=== PATIENT | female | born 1955 | race Caucasian/White ===

== ENCOUNTER → 2016-09-29 | Outpatient (CLI) | payer BC ==
[~2016-09-29] MED LIST: CALC600T37 PO; CALCIUM 600 MG PO; CHOL1000 PO; HYDR-5688 PO; HYDR0.5T PO; IRBE-37 PO; MELO7.5T6 PO; PANT40TA PO; TRIA37.5 PO; [UNRECOGNIZED DRUG - CODE] PO; [UNRECOGNIZED DRUG - OTHER] PO
--- NOTE | 2016-09-29 15:22 | DIAGNOSTIC IMAGING REPORT ---
RIGHT HAND MIN 3 VIEWS ROUTINE CLINICAL HISTORY: EROSIVE ARTHRITIS Right pain COMPARISON: None. DISCUSSION: Findings consistent with relatively severe erosive osteoarthritis involving the distal interphalangeal joints. Mild degenerative changes seen in the proximal interphalangeal joint region. There is no significant involvement of the intercarpal or metacarpophalangeal joints. Bony mineralization is diminished throughout. There is no evidence for soft tissue swelling. IMPRESSION: Severe degenerative and/or erosive osteoarthritic change of the distal interphalangeal joints throughout the second through fifth fingers. Mild degenerative change of the proximal interphalangeal joints throughout. Mild osteopenia. Electronically signed by: Aldo Calderon M.D. 09/29/2016 3:20 PM Dictated Date/Time: 09/29/2016 3:19 PM
== END | disposition home or self-care (01) ==
LOC: C.RADBC 14:37
PROVIDERS: ATTEND Orthopaedic Surgery
DX: M19.90 Unspecified osteoarthritis, unspecified site (principal)

== ENCOUNTER → 2016-09-30 | Outpatient (CLI) | payer BC ==
[2016-09-30 15:41] LABS: BASO % 0.6 %; BASO ABS # 0.03 K/uL (0-0.2); COMPLETE YES; EOS % 6.6 %; HEMATOCRIT 38.9 % (37-47); IG% 0.2 %; LYMPH % 30.2 %; LYMPH ABS # 1.56 K/uL (1.2-3.4); MEAN CELL VOLUME 86.1 fL (80-100); MEAN CORPUSCULAR HEMOGLOBIN 27.4 pg (25-34); MEAN CORPUSCULAR HGB CONC 31.9 g/dl (32-36); MEAN PLATELET VOLUME 11.8 fL (7.4-10.4); MONO % 6.6 %; NEUT % 55.8 %; PLATELET COUNT 216 K/uL (130-400); RED BLOOD COUNT 4.52 M/uL (4.2-5.4); WHITE BLOOD COUNT 5.16 K/uL (4.8-10.8)
[2016-09-30 16:03] LABS: BLOOD UREA NITROGEN 20 mg/dl (7-18); BUN/CREATININE RATIO 12.2 (10-20); CARBON DIOXIDE 33 mmol/L (21-32); CHLORIDE 106 mmol/L (98-107); GLUCOSE 81 mg/dl (70-99); POTASSIUM 3.9 mmol/L (3.5-5.1); SODIUM 143 mmol/L (136-145)
== END | disposition home or self-care (01) ==
LOC: C.CPL 14:33
PROVIDERS: ATTEND Orthopaedic Surgery
DX: Z01.810 Encounter for preprocedural cardiovascular examination (principal); Z01.812 Encounter for preprocedural laboratory examination; M67.449 Ganglion, unspecified hand

== ENCOUNTER → 2016-10-02 | Outpatient (CLI) | payer BC ==
--- NOTE | 2016-10-02 13:45 | DIAGNOSTIC IMAGING REPORT ---
LEFT FOOT MIN 3 VIEWS ROUTINE CLINICAL HISTORY: EROSIVE OSTEOARTHRITIS OF BOTH Hands, medial Epicondylitis, r COMPARISON: None. DISCUSSION: Considerable degenerative change of the distal interphalangeal joints of the second through fourth toes. This suggestive of erosive osteoarthritic change. Bunion deformity distal aspect first metatarsal with mild hallux valgus configuration. Very small heel spur. There is no evidence for soft tissue swelling. IMPRESSION: Findings of erosive osteoarthritic change involving the second through fourth distal interphalangeal joints. Moderate degenerative change first metatarsophalangeal joint. Electronically signed by: Aldo Calderon M.D. 10/02/2016 1:43 PM Dictated Date/Time: 10/02/2016 1:42 PM
--- NOTE | 2016-10-02 13:47 | DIAGNOSTIC IMAGING REPORT ---
LEFT HAND 3 VIEWS HISTORY: EROSIVE OSTEOARTHRITIS OF BOTH Hands, medial Epicondylitis, r COMPARISON: None. FINDINGS: Mild soft tissue swelling at the DIP joints. Erosive osteoarthritis at the DIP joints. Moderate osteoarthritis at the PIP joints. No fractures. No dislocation. Mild periarticular osteopenia. The DIP joints of the fourth and fifth fingers appear to be fused. No radiopaque foreign bodies. IMPRESSION: 1. Erosive osteoarthritis at the DIP joints of the left hand. The fourth and fifth finger DIP joints appear to be fused. 2. Mild periarticular osteopenia. 3. Moderate osteoarthritis at the PIP joints. Electronically signed by: Ho Keller M.D. 10/02/2016 1:46 PM Dictated Date/Time: 10/02/2016 1:43 PM
== END | disposition home or self-care (01) ==
LOC: C.RAD 13:17
PROVIDERS: ATTEND Internal Medicine Rheumatology
DX: M15.4 Erosive (osteo)arthritis (principal); M19.041 Primary osteoarthritis, right hand; M19.042 Primary osteoarthritis, left hand; M77.01 Medial epicondylitis, right elbow; M25.50 Pain in unspecified joint; Z79.1 Long term (current) use of non-steroidal anti-inflammatories (NSAID); Z79.899 Other long term (current) drug therapy

== ENCOUNTER → 2016-10-08 | Day surgery (SDC) | payer BC ==
[2016-10-07 15:09] VITALS: Ht 165.1 cm; Wt 90.9 kg
[~2016-10-08] VITALS: Ht 165.1 cm; Wt 90.9 kg
[~2016-10-08] MED LIST changes: +ATROPINE SULFATE 0.1 MG/ML 5ML SYR IV PRN; -CALCIUM 600 MG PO; +CEFAZOLIN 1000MG/55 ML D5W IV SCH; +DEXAMETHASONE SOD INJ 4 MG/ML VIAL ONE; +EpHEDrine SULFATE INJ 50 MG/ML AMP IV PRN; +FENTANYL CITRATE INJ 50 MCG/1 ML 2 ML VIAL IV PRN; +FENTANYL CITRATE INJ 50 MCG/1 ML 2 ML VIAL ONE; +HYDROCODONE/ACETAMOPHEN 5/325MG TAB PO PRN; -IRBE-37 PO; +LACTATED RINGER'S 1000ML 1,000 ML IV SCH; +LIDOCAINE HCL 2% 2 ML VIAL (20MG/ML) ONE; +LIDOCAINE HCL 2% LOCAL 20 ML VIAL ONE; +MIDAZOLAM HCL 1 MG/ML 2ML VIAL ONE; +ONDANSETRON INJ 2 MG/ML 2 ML VIAL IV PRN; +ONDANSETRON INJ 2 MG/ML 2 ML VIAL ONE; +PATIENT'S HEIGHT AND/OR WEIGHT NEEDED SCH; +PROPOFOL IV EMULSION 10 MG/ML 20 ML VIAL IV ONE; +SODIUM CHLORIDE 0.9% 1000ML 1,000 ML IV SCH; -[UNRECOGNIZED DRUG - CODE] PO; -[UNRECOGNIZED DRUG - OTHER] PO
--- NOTE | 2016-10-08 07:53 | History & Physical Bridge - SC ---
H&P Re-Evaluation Bridge Note: I have examined the patient, reviewed the History & Physical and in the interval since the performance of the History & Physical I have noted the following changes of clinical significance: No changes noted
[2016-10-08 08:39] VITALS: TEMP 36.5
--- NOTE | 2016-10-08 08:39 | Discharge Instructions-SurgCtr ---
Discharge Instructions Date of Service Oct 08, 2016. Visit Reason for Visit: Right Ring Finger Cyst Discharge Discharge Diagnosis / Problem: SAME ABOVE Discharge Goals Goal(s): Decrease discomfort, Improve function Activity Recommendations Activity Limitations: as noted below Shower/Bathe: may shower/bathe in 3 days Driving or Machine Use: resume 1 day after discharge Anesthesia . Post Anesthesia Instructions: If you have had General Anesthesia or IV Sedation: * Do not drive today. * Resume driving when surgeon permits. * Do not make important decisions or sign legal documents today. * Call surgeon for: 1. Temperature elevations greater than 101 degrees F. 2. Uncontrollable pain. 3. Excessive bleeding. 4. Persistent nausea and vomiting. 5. Medication intolerance (nausea, vomiting or rash). * For nausea and vomiting use only clear liquids such as: tea, soda, bouillon until nausea subsides, then gradually increase diet as tolerated. * If you have any concerns or questions, call your surgeon's office. If physician is unavailable and it is an emergency, call 911 or go to the nearest emergency room. . Instructions / Follow-Up Instructions / Follow-Up MEDICATIONS: * Resume previous medications unless instructed otherwise by your surgeon. * Always take pain medication on a full stomach or with food to avoid upset stomach. * Do not drink alcohol or drive while taking narcotics. * Ibuprofen or Tylenol may be taken if narcotic not needed. SPECIAL CARE INSTRUCTIONS: __ None _X_ Keep extremity elevated and iced x 48 hours; apply ice 20-30 minutes 8-10 times/day. May remove at night. __ Sling __24 hrs/day __ Remove at night __ Shoulder Immobilizer __ 24 hrs/day __ Remove at night _X_ Dressing __ Maintain until seen in office, may shower with plastic over site _X_ Remove dressings in 3 DAYS. MAY SHOWER SOONER IF COVERED WITH PLASTIC BAG _X_ Cover incisions with band-aids after showering __ Do not remove steri-strips Call physician if chills or temperature rises above 102 degrees or pain unrelieved by prescribed pain medications at . . Diet Recommendations Home Diet: no limitations Fluid Restriction: None Procedures Procedures Performed: Right Ring Finger Ganglion Cyst Excision Pending Studies Studies pending at discharge: yes List of pending studies: GANGLION CYST OF RIGHT RING FINGER Work Instructions Return To Work: 3 days (OR WHEN PAIN IS TOELRATED ) Medical Emergencies . Who to Call and When: Medical Emergencies: If at any time you feel your situation is an emergency, please call 911 immediately. . Non-Emergent Contact Non-Emergency issues call your: Primary Care Provider Call Non-Emergent contact if: you have a fever, temperature is above 101.5 . . "Provider Documentation" section prepared by Derrick Grayson. .
[2016-10-08 09:11] VITALS: BP 132/67; PULSE 63; O2SAT 98
--- NOTE | 2016-10-08 09:36 | Anesthesia Progress Nt - [facility] ---
Anesthesia Post Op Note Date & Time Oct 08, 2016 at 09:35 Vital Signs Pain Intensity: 0 Vital Signs Past 12 Hours Date Time Temp Pulse Resp B/P (MAP) Pulse Ox O2 Delivery O2 Flow Rate FiO2 10/08/16 09:11 63 132/67 (88) 98 Room Air 10/08/16 08:39 36.5 70 12 137/60 (85) 96 Room Air 10/08/16 07:38 36.6 71 16 156/87 (110) 99 Room Air Notes Mental Status: alert / awake / arousable, participated in evaluation Pt Amnestic to Procedure: Yes Nausea / Vomiting: adequately controlled Pain: adequately controlled Airway Patency, RR, SpO2: stable & adequate BP & HR: stable & adequate Hydration State: stable & adequate Anesthetic Complications: no major complications apparent
--- NOTE | 2016-10-08 09:47 | OPERATIVE REPORT ---
DATE OF OPERATION: 10/08/2016 PREOPERATIVE DIAGNOSIS: Ganglion cyst of the right ring finger. POSTOPERATIVE DIAGNOSIS: Same. PROCEDURE: Open excision ganglion cyst, right ring finger. SURGEON: Dr. Tanmay Arceo. STONEMASON HELPER: Grzegorz Grayson PA-C, whose assistance was necessary for positioning the hand and helping with instrumentation. ANESTHESIA: Local with sedation. COMPLICATIONS: None. CONDITION: Stable to PACU. INDICATIONS: Earlene is a pleasant 60-year-old female who does have arthritis in her hand. She developed a cyst on the radial aspect of the PIP joint of her right ring finger. It has been quite bothersome. She elected to undergo open excision. OPERATION AND FINDINGS: On 10/08/2016 she arrived at [facility] for the above procedure. She was seen in the preoperative holding area and the operative extremity was identified and signed. She was given a preoperative antibiotic, taken back to the operating room, laid on the table in supine position and given basic sedation. The right hand was prepped and draped in sterile fashion. Time-out was done and the patient and operative extremity was properly identified. A digital block with 5 mL of lidocaine was done. Once proper analgesia was obtained, a longitudinal incision was made directly over the cyst on the radial aspect of the PIP joint. Dissection was taken down to the cyst with care not to disrupt the digital nerve. The cyst was then excised. There was a gelatinous fluid that was evacuated. The tissue was sent to pathology. The wound was then irrigated and closed with 4-0 nylon sutures. She was then placed in a soft dressing and taken to the postanesthesia care unit in stable condition. She tolerated the procedure well. I attest to the content of the Intraoperative Record and any orders documented therein. Any exception s are noted below.
--- NOTE | 2016-10-08 11:44 | [facility] Post Operative Brief Note ---
Immediate Operative Summary Operative Date Oct 08, 2016. Pre-Operative Diagnosis Right ring finger ganglion cyst Post-Operative Diagnosis same as preop Procedure(s) Performed Right Ring Finger Ganglion Cyst Excision Surgeon Dr. Arceo Special Projects Coordinator Surgeon(s) Samaria Grayson PA-C Estimated Blood Loss none Findings as above Specimens A: Right Ring finger ganglion cyst Complication(s) None Disposition Recovery Room / PACU
== END | disposition home or self-care (01) ==
LOC: X.SURG 07:27
PROVIDERS: ATTEND Orthopaedic Surgery
DX: M67.441 Ganglion, right hand (principal); M19.90 Unspecified osteoarthritis, unspecified site

== ENCOUNTER → 2016-10-23 | Outpatient (CLI) | payer BC ==
[~2016-10-23] MED LIST changes: -ATROPINE SULFATE 0.1 MG/ML 5ML SYR IV PRN; -CEFAZOLIN 1000MG/55 ML D5W IV SCH; -DEXAMETHASONE SOD INJ 4 MG/ML VIAL ONE; -EpHEDrine SULFATE INJ 50 MG/ML AMP IV PRN; -FENTANYL CITRATE INJ 50 MCG/1 ML 2 ML VIAL IV PRN; -FENTANYL CITRATE INJ 50 MCG/1 ML 2 ML VIAL ONE; -HYDROCODONE/ACETAMOPHEN 5/325MG TAB PO PRN; -LACTATED RINGER'S 1000ML 1,000 ML IV SCH; -LIDOCAINE HCL 2% 2 ML VIAL (20MG/ML) ONE; -LIDOCAINE HCL 2% LOCAL 20 ML VIAL ONE; -MIDAZOLAM HCL 1 MG/ML 2ML VIAL ONE; -ONDANSETRON INJ 2 MG/ML 2 ML VIAL IV PRN; -ONDANSETRON INJ 2 MG/ML 2 ML VIAL ONE; -PATIENT'S HEIGHT AND/OR WEIGHT NEEDED SCH; -PROPOFOL IV EMULSION 10 MG/ML 20 ML VIAL IV ONE; -SODIUM CHLORIDE 0.9% 1000ML 1,000 ML IV SCH
--- NOTE | 2016-10-23 15:42 | MAMMOGRAPHY REPORT ---
BILATERAL DIGITAL SCREENING MAMMOGRAM TOMOSYNTHESIS WITH CAD: 10/23/2016 CLINICAL HISTORY: Routine screening. TECHNIQUE: Breast tomosynthesis in addition to standard 2D mammography was performed. Current study was also evaluated with a Computer Aided Detection (CAD) system. COMPARISON: Comparison is made to exams dated: 09/30/2015 mammogram, 09/28/2014 mammogram, 09/01/2013 m ammogram, 06/24/2012 mammogram, 06/15/2011 mammogram, and 06/02/2010 mammogram - [facility]ter. BREAST COMPOSITION: There are scattered areas of fibroglandular density in both breasts. FINDINGS: No suspicious masses, calcifications, or areas of architectural distortion are noted in ei ther breast. There has been no significant interval change compared to prior exams. Bilateral benign -appearing calcifications are not significantly changed. IMPRESSION: ACR BI-RADS CATEGORY 2: BENIGN There is no mammographic evidence of malignancy. A 1 year screening mammogram is recommended. The pa tient will receive written notification of the results. Approximately 10% of breast cancers are not detected with mammography. A negative mammographic report should not delay biopsy if a clinically suggestive mass is present. Carmen Freedman M.D. /:10/23/2016 15:19:05 Illuminating Engineer: Shreya ANGULO(R)(M), [facility] letter sent: Normal 1/2 BI-RADS Code: ACR BI-RADS Category 2: Benign
== END | disposition home or self-care (01) ==
LOC: C.MAMM 09:27
PROVIDERS: ATTEND Internal Medicine
DX: Z12.31 Encounter for screening mammogram for malignant neoplasm of breast (principal)

== ENCOUNTER → 2017-01-25 | Outpatient (CLI) | payer BC ==
--- NOTE | 2017-01-25 13:55 | DIAGNOSTIC IMAGING REPORT ---
RIGHT ELBOW MIN 3 VIEWS ROUTINE CLINICAL HISTORY: Right elbow pain. Erosive osteoarthritis of the hands. COMPARISON: None. DISCUSSION: No acute fractures are visualized. The fat pads are not displaced. There is coronoid process spurring. There is joint space narrowing involving the radiocapitellar joint. No erosive changes are evident. IMPRESSION: Mild to moderate osteoarthritic change. No acute fractures. Electronically signed by: Santos Solitario M.D. 01/25/2017 1:53 PM Dictated Date/Time: 01/25/2017 1:53 PM
== END | disposition home or self-care (01) ==
LOC: C.RAD 13:24
PROVIDERS: ATTEND Internal Medicine Rheumatology
DX: M77.01 Medial epicondylitis, right elbow (principal); M15.4 Erosive (osteo)arthritis; M19.041 Primary osteoarthritis, right hand; M19.042 Primary osteoarthritis, left hand; Z79.899 Other long term (current) drug therapy; M25.50 Pain in unspecified joint; Z79.1 Long term (current) use of non-steroidal anti-inflammatories (NSAID); M15.0 Primary generalized (osteo)arthritis; N28.9 Disorder of kidney and ureter, unspecified

== ENCOUNTER → 2017-04-13 | Outpatient (CLI) | payer BC ==
[~2017-04-13] MED LIST changes: -HYDR-5688 PO
--- NOTE | 2017-04-13 13:59 | DIAGNOSTIC IMAGING REPORT ---
L-SPINE MIN 4 VIEWS ROUTINE HISTORY: 61 years-old Female M54.16 Lumbar radiculopathy right-sided reticular lumbar spine pain COMPARISON: CT abdomen and pelvis 07/15/2013 TECHNIQUE: 5 views of the lumbar spine FINDINGS: There are 5 lumbar type vertebral segments present. There is no acute fracture identified. No pars defect identified. There is 9 mm anterolisthesis L4 on L5 with severe intervertebral disc space narrowing at this level. Moderate facet arthrosis noted at L4-L5 and L5-S1. Disc space narrowing and anterolisthesis at L4-L5 is new from prior exam. Mild multilevel endplate spurring without additional significant intervertebral disc space narrowing. Soft tissues are unremarkable. Surgical clips of the right upper abdomen compatible with prior cholecystectomy. IMPRESSION: 1. No acute fracture identified. 2. Severe intervertebral disc space narrowing at L4-L5 with 9 mm anterolisthesis L4 on L5 is new from comparison study 07/15/2013. These findings may be secondary to underlying moderate facet arthrosis without pars defects identified. The above report was generated using voice recognition software. It may contain grammatical, syntax or spelling errors. Electronically signed by: Ravi Strong M.D. 04/13/2017 1:58 PM Dictated Date/Time: 04/13/2017 1:54 PM
== END | disposition home or self-care (01) ==
LOC: C.RAD 13:08
PROVIDERS: ATTEND Internal Medicine
DX: M51.36 Other intervertebral disc degeneration, lumbar region (principal); M47.26 Other spondylosis with radiculopathy, lumbar region

== ENCOUNTER → 2017-08-25 | Outpatient (CLI) | payer OTHER ==
[2017-08-25 10:36] LABS: BLOOD UREA NITROGEN 29 mg/dl (7-18); CREATININE 1.36 mg/dl (0.60-1.20)
== END | disposition home or self-care (01) ==
LOC: C.LAB 09:38
PROVIDERS: ATTEND Internal Medicine
DX: Z01.812 Encounter for preprocedural laboratory examination (principal); N18.3 Chronic kidney disease, stage 3 (moderate)

== ENCOUNTER → 2017-08-31 | Outpatient (CLI) | payer OTHER ==
[~2017-08-31] MED LIST changes: +GADAVIST IV PRN
--- NOTE | 2017-08-31 14:04 | DIAGNOSTIC IMAGING REPORT ---
LUMBAR SPINE COMBINATION HISTORY: Pain. Neuropathy. M54.16 Lumbar [id number] TECHNIQUE: Multiplanar multisequence MRI of the lumbar spine was performed both before and after the intravenous administration of contrast. COMPARISON: None. FINDINGS: For the purpose of the report the L5-S1 disc space will be located on axial image 2425. Grade 1 anterolisthesis of L4 on L5. This is associated with a posterior spondylolysis. Maximum anterolisthesis of L4 is 4 mm. Considerable degenerative disc changes identified at L4-L5. L1-L2: No significant central canal or neural foraminal narrowing. L2-L3: No significant central canal or neural foraminal narrowing. L3-L4: No significant central canal or neural foraminal narrowing. L4-L5: Mild/moderate multifactorial narrowing of spinal canal. This is secondary to hypertrophic changes of posterior elements by with the patient agreed 1 anterolisthesis of L4 on L5. There is a posterior spondylolysis. There is moderate impact upon the thecal sac. Neuroforamina are patent bilaterally. L5-S1: No significant central canal or neural foraminal narrowing. IMPRESSION: 1. Moderate multifactorial narrowing of spinal canal at L4-L5 secondary to hypertrophic changes of posterior elements and a grade 1 anterolisthesis of L4 on L5. 2. 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 3. Remainder the study is negative The above report was generated using voice recognition software. It may contain grammatical, syntax or spelling errors. Electronically signed by: Aldo Calderon M.D. 08/31/2017 2:02 PM Dictated Date/Time: 08/31/2017 1:55 PM
== END | disposition home or self-care (01) ==
LOC: C.MRI 11:37
PROVIDERS: ATTEND Internal Medicine
DX: M54.16 Radiculopathy, lumbar region (principal)

== ENCOUNTER → 2017-12-31 | Outpatient (CLI) | payer OTHER ==
[~2017-12-31] MED LIST changes: +CYM/30 PO; -GADAVIST IV PRN; +TELM40TA11 PO
--- NOTE | 2018-01-03 13:56 | MAMMOGRAPHY REPORT ---
BILATERAL DIGITAL SCREENING MAMMOGRAM TOMOSYNTHESIS WITH CAD: 12/31/2017 CLINICAL HISTORY: Routine screening. Patient has no complaints. TECHNIQUE: Breast tomosynthesis in addition to standard 2D mammography was performed. Current study w as also evaluated with a Computer Aided Detection (CAD) system. COMPARISON: Comparison is made to exams dated: 10/23/2016 mammogram, 09/30/2015 mammogram, 09/28/2014 m ammogram, 06/24/2012 mammogram, 06/15/2011 mammogram, and 06/13/2010 mammogram - [facility]. BREAST COMPOSITION: There are scattered areas of fibroglandular density in both breasts. FINDINGS: No suspicious masses, calcifications, or areas of architectural distortion are noted in either breast . There has been no significant interval change compared to prior exams. Scattered bilateral benign-a ppearing calcifications are not significantly changed. IMPRESSION: ACR BI-RADS CATEGORY 2: BENIGN There is no mammographic evidence of malignancy. A 1 year screening mammogram is recommended.( 019) The patient will receive written notification of the results. Some breast cancers are not detected with mammography. A negative mammographic report should not tenisha y biopsy if a clinically suggestive mass is present. Carmen Freedman M.D. ah/:12/31/2017 15:47:21 Founder And President: RT Gloria(Jim)(M), [facility] letter sent: Normal 1/2 BI-RADS Code: ACR BI-RADS Category 2: Benign
== END | disposition home or self-care (01) ==
LOC: C.MAMM 12:18
PROVIDERS: ATTEND Obstetrics & Gynecology
DX: Z12.31 Encounter for screening mammogram for malignant neoplasm of breast (principal)

== ENCOUNTER 2018-12-24 08:47 | Inpatient (IN) ==
--- NOTE | 2018-12-24 09:17 | Emergency Department Note ---
ED Provider Note CHIEF COMPLAINT: Syncope HISTORY OF PRESENTING ILLNESS: This is a 63-year-old female who presents to the emergency department via EMS for concern of 2 episodes of syncope. Patient states her first episode happened around 8 AM, she was driving her to doctor's appointment and had an episode of syncope when she got out of the car falling backwards in the parking lot. She does not think that she had her head. Staff at the doctor's office had her sit in a wheelchair and she was in the chair for approximately 15 minutes when she began to feel fuzzy and passed out again for a few seconds. There was no seizure-like activity, she was not confused afterward. No urinary incontinence or injury associated with the syncope. Patient denies any symptoms of chest pain, shortness of breath, or palpitations. She denies any abdominal pain, back pain, nausea or vomiting. She denies any headaches, vision changes, neck pain or stiffness, persistent dizziness. She denies any numbness/tingling or weakness of the extremities. She denies any difficulty walking or balance problems. She currently denies any symptoms and states that she feels fine. She does note a history of a right bundle branch block and stage III chronic kidney disease, she is not on dialysis. She does note a history of similar episodes a few years ago, states t hat she was seen by cardiology and had a tilt table test and a home monitor and states the cause of her symptoms were never determined. She denies any ongoing issues with syncope, or recurrent episodes since that time until today. REVIEW OF SYSTEMS: A complete 10 point review of systems was reviewed with the patient with pertinent positives and negatives as per history of present illness. All else were negative. PAST MEDICAL HISTORY: Hypertension, GERD, stage III chronic kidney disease, erosive osteoarthritis, history of cholecystectomy history of total hysterectomy SOCIAL HISTORY: Lives at home with her ALLERGIES: Reviewed in chart PHYSICAL EXAM: CONSTITUTIONAL: Pleasant and cooperative. Nontoxic-appearing and in no acute distress. Well-hydrated, well appearing and well nourished. HEENT: Normocephalic, atraumatic. PERRL, EOMI. TMs normal bilaterally, no hemotympanum. Pharynx normal. Moist mucous membranes. NECK: Supple, full active range of motion without discomfort. No midline tenderness of the cervical spine. No carotid bruits heard bilaterally. RESPIRATORY: Clear to auscultation bilaterally with no wheezing, crackles, rhonchi or stridor. Equal expansion bilaterally. CARDIOVASCULAR: Regular rate and rhythm with no murmurs, rubs or gallops. Normal peripheral perfusion, 2+ distal pulses in all 4 extremities. No pitting edema. GASTROINTESTINAL: Soft, nontender, nondistended. No palpable masses or HSM. Bowel sounds present in all quadrants. No CVA tenderness bilaterally. MUSCULOSKELETAL: Full range of motion of all joints without discomfort. No midline tenderness to palpation of the thoracic or lumbar spine. INTEGUMENTARY: No rash or other significant dermatologic conditions noted. NEUROLOGIC: Alert and oriented X 4 with normal affect. Cranial nerves II-XII grossly intact, no facial droop. No pronator drift. [id number] testing normal. Negative Romberg. 5/5 strength in all 4 extremities. Sensation intact to light touch in all 4 extremities. No focal neurologic deficits noted. Normal speech. ED COURSE AND MEDICAL DECISION MAKING: CC: Patient presenting with complaint of syncope DIFFERENTIAL DIAGNOSIS: Includes, but not limited to vasovagal syncope, orthostatic syncope, cardiac dysrhythmia, CVA, intracranial hemorrhage, seizure, electrolyte abnormality, acute anemia, among others. INTERPRETATION OF LABS: No leukocytosis, no anemia, normal platelets, no significant elect light abnormalities, slightly elevated BUN and creatinine (appears consistent with baseline), normal liver enzymes. TSH within normal limits. UA negative for infection. IMAGING: XR chest 1V portable CLINICAL HISTORY: syncope COMPARISON STUDY: 08/12/2018 FINDINGS: The cardiac and mediastinal contours are normal. There is no evidence of focal pulmonary consolidation. There is no evidence of failure. No pleural effusions are visualized. IMPRESSION: No active disease in the chest. ----- CT head/brain wo con CLINICAL HISTORY: syncope COMPARISON STUDY: No previous studies for comparison. TECHNIQUE: Axial CT of the brain is performed from the vertex to the skull base. IV contrast was not administered for this examination. A dose lowering technique was utilized adhering to the principles of ALARA. CT DOSE: 537.48 mGy.cm FINDINGS: No intra or extra-axial mass lesions are visualized. There is no CT evidence of acute cortical infarction. There is no evidence of midline shift. There is no acute hemorrhage. No calvarial fractures are visualized. There is mild frontal lobe atrophy. There is a prominent ossification involving the anterior falx There is no evidence of pathologic ventricular dilatation. There is no evidence of acute sinusitis IMPRESSION: No acute intracranial findings EKG: Shows normal sinus rhythm with a rate of 96 bpm, right bundle branch block, no acute ST or T wave abnormalities, no ectopy, no significant change when compared to previous EKG from 09/30/2016 by my interpretation. MEDICATION RECONCILIATION: I attest that I have personally reviewed the patient's current medication list. INITIAL VITAL SIGNS REVIEW: I reviewed the patient's initial vital signs and interpret them as follows: T: Afebrile; BP: Hypertensive; HR: Within normal limits; RR: Within normal limits; Pulse Ox: Within normal limits on room air. Blood pressure screening: The patient was found to have an elevated blood pressure and was referred to the inpatient hospitalist team for further management. MDM SUMMARY: Patient was evaluated at bedside, history and physical exam performed. Patient is alert and oriented, no acute distress, resting calmly in stretcher. Patient is neurologically intact with no focal deficits. Heart and lung exam is unremarkable. The patient was placed on senior loss control specialist, no dysrhythmias or ectopy noted. Patient denies any complaints at this time. No injuries or signs of trauma noted from fall. Patient is generally well-appearing, she does not appear to be clinically dehydr ated, and denies any history to explain dehydration. EKG reviewed at bedside, noting a right bundle branch block which patient reports a history of, no acute ischemic changes. Orders were placed at bedside for labs, UA, IV fluid bolus for hydration, chest x-ray, CT head noncontrast to evaluate for syncope. Patient discussed with Dr. Knapp, who agrees with my assessment, plan, and disposition. Labs and imaging reviewed as above, labs are unremarkable, no anemia or electrolyte abnormalities, renal function appears to be at her baseline. There is no UTI. Chest x-ray is clear. CT imaging of the head is unremarkable as well. Orthostatic blood pressures are negative, though she did have a tachycardic response sitting to standing, possibly suggesting orthostasis. Patient reassessed multiple times throughout ED stay, she has remained hemodynamically stable. She states that she still has moments where she feels slightly "fuzzy", but has not had any further episodes of syncope in the [facility] department. The patient and her were updated on all results from her work-up today. I discussed the option of additional testing for potential discharge versus admission to the hospital for additional work-up, the patient preferred to be admitted as she is concerned about going home. Given the unexplained, multiple episodes of syncope today, I feel that admission is a reasonable option for this patient. I spoke on the phone with Dr. Tadeo, [facility], who shanell magallon to evaluate the patient for admission. Patient and her were updated on plan for admission, they verbalized understanding and were to this plan. The patient was stable at time of admission. The chart was completed utilizing QR Wild Speech voice recognition software. Grammatical errors, random word insertions, pronoun errors, and incomplete sentences are an occasional consequence of this system due to software limitations, ambient noise, and hardware issues. Any formal questions or concerns about the content, text, or information contained within the body of this dictation should be directly addressed to the nurse practitioner for clarification. Impression & Plan Syncope and collapse Past Med/Surg History Medical History Chronic kidney disease, stage 3 Erosive osteoarthritis Hypertension Osteomyelitis Right bundle branch block (RBBB) Spondylolysis Surgical History History of bilateral tubal ligation History of breast biopsy aspiration of cyst from left breast benign History of cholecystectomy History of colonoscopy History of dilatation and curettage History of esophagogastroduodenoscopy (EGD) History of hand surgery right finger left hand--I&D History of tooth extraction History of total abdominal hysterectomy and bilateral salpingo-oophorectomy Social History Preferred Language: Albanian Communication Ability: Effective Coater Operator Insulation Board Required: No Beliefs That Will Affect Care: None Current Living Situation: Spouse Feels Safe at Home: Yes Smoking Status: Never smoker Second Hand Exposure: Yes (parents smoked) ; Hx Alcohol Use: No Hx Substance Use: No Results & Data Vital Signs Vital Signs - 24 hr 12/24/18 08:59 12/24/18 09:12 12/24/18 09:28 Temperature 36.6 C Temperature Source Oral Sepsis Recent Fever Within 48 Hours No Sepsis New/Unexplained Change in Mental Status No Sepsis Action Taken by Nursing No Action Required Pulse Rate - Lying 84 Pulse Rate - Sitting 84 Pulse Rate - Standing 120 H Pulse Rate 90 Pulse Rate [Apical] Respiratory Rate 16 Blood Pressure - Lying 164/73 H Blood Pressure - Sitting 158/8 H Blood Pressure- Standing 163/88 H Blood Pressure 171/76 H Blood Pressure [Left Arm] Blood Pressure Mean 107 Blood Pressure Mean [Left Arm] Pulse Oximetry 100 97 Oxygen Delivery Method Room Air Room Air 12/24/18 10:59 12/24/18 12:00 Temperature Temperature Source Sepsis Recent Fever Within 48 Hours Sepsis New/Unexplained Change in Mental Status Sepsis Action Taken by Nursing Pulse Rate - Lying Pulse Rate - Sitting Pulse Rate - Standing Pulse Rate Pulse Rate [Apical] 76 72 Respiratory Rate 16 16 Blood Pressure - Lying Blood Pressure - Sitting Blood Pressure- Standing Blood Pressure Blood Pressure [Left Arm] 160/71 H 154/72 H Blood Pressure Mean Blood Pressure Mean [Left Arm] 100 99 Pulse Oximetry 98 97 Oxygen Delivery Method Room Air Room Air Laboratory Data Result diagrams: 12/24/18 09:25 12/24/18 09:25 Lab Results 12/24/18 12/24/18 12/24/18 Range/Units 09:25 09:25 09:25 WBC 5.44 (4.8-10.8) K/uL RBC 4.66 (4.2-5.4) M/uL Hgb 12.6 (12.0-16.0) g/dL Hct 38.8 (37-47) % MCV 83.3 (80-100) fL MCH 27.0 (25-34) pg MCHC 32.5 (32-36) g/dL RDW Std Deviation 41.5 (36.4-46.3) fL RDW Coeff of Rowdy 13.7 (11.5-14.5) % Plt Count 216 (130-400) K/uL MPV 11.9 H (7.4-10.4) fL Immature Gran % (Auto) 0.2 % Neut % (Auto) 68.2 % Lymph % (Auto) 17.8 % Miner % (Auto) 9.2 % Eos % (Auto) 4.4 % Baso % (Auto) 0.2 % Immature Gran # (Auto) 0.01 (0.00-0.02) K/uL Neut # (Auto) 3.71 (1.4-6.5) K/uL Lymph # (Auto) 0.97 L (1.2-3.4) K/uL Miner # (Auto) 0.50 (0.11-0.59) K/uL Eos # (Auto) 0.24 (0-0.5) K/uL Baso # (Auto) 0.01 (0-0.2) K/uL PT 10.6 (9.0-12.0) Seconds INR 1.0 (0.9-1.1) APTT 26.3 (21.0-31.0) Seconds PTT Ratio 1.0 Sodium 142 (136-145) mmol/L Potassium 3.6 (3.5-5.1) mmol/L Chloride 106 (98-107) mmol/L Carbon Dioxide 31 (21-32) mmol/L Anion Gap 5.0 (3-11) BUN 22 H (7-18) mg/dl Creatinine 1.36 H (0.6-1.2) mg/dl Est Cr Clr Drug Dosing 48.3 ml/min Est GFR ( Amer) 48.2 Est GFR (Non-Af Amer) 41.6 BUN/Creatinine Ratio 16.3 (10-20) Glucose 114 H (70-99) mg/dl Calcium 9.0 (8.5-10.1) mg/dl Magnesium 2.1 (1.8-2.4) mg/dl Total Bilirubin 0.5 (0.2-1) mg/dl AST 25 (15-37) U/L ALT 34 (12-78) U/L Alkaline Phosphatase 88 (45-117) U/L Total Protein 7.0 (6.4-8.2) gm/dl Albumin 3.9 (3.4-5.0) gm/dl Globulin 3.1 (2.5-4.0) gm/dl Albumin/Globulin Ratio 1.3 (0.9-2) TSH 2.090 (0.300-4.500) uIu/ml Urine Color Urine Appearance (Clear) Urine pH (4.5-7.5) Ur Specific [place] (1.000-1.030) Urine Protein (Negative) Urine Glucose (UA) (Negative) Urine Ketones (Negative) Urine Blood (Negative) Urine Nitrite (Negative) Urine Bilirubin (Negative) Urine Urobilinogen (Negative) Ur Leukocyte Esterase (Negative) Urine WBC (Auto) (0-5) /hpf Urine RBC (Auto) (0-4) /hpf U Hyaline Cast (Auto) (0-5) /lpf U Epithel Cells (Auto) (0-5) /lpf Urine Bacteria (Auto) (Negative) 12/24/18 Range/Units 11:10 WBC (4.8-10.8) K/uL RBC (4.2-5.4) M/uL Hgb (12.0-16.0) g/dL Hct (37-47) % MCV (80-100) fL MCH (25-34) pg MCHC (32-36) g/dL RDW Std Deviation (36.4-46.3) fL RDW Coeff of Rowdy (11.5-14.5) % Plt Count (130-400) K/uL MPV (7.4-10.4) fL Immature Gran % (Auto) % Neut % (Auto) % Lymph % (Auto) % Miner % (Auto) % Eos % (Auto) % Baso % (Auto) % Immature Gran # (Auto) (0.00-0.02) K/uL Neut # (Auto) (1.4-6.5) K/uL Lymph # (Auto) (1.2-3.4) K/uL Miner # (Auto) (0.11-0.59) K/uL Eos # (Auto) (0-0.5) K/uL Baso # (Auto) (0-0.2) K/uL PT (9.0-12.0) Seconds INR (0.9-1.1) APTT (21.0-31.0) Seconds PTT Ratio Sodium (136-145) mmol/L Potassium (3.5-5.1) mmol/L Chloride (98-107) mmol/L Carbon Dioxide (21-32) mmol/L Anion Gap (3-11) BUN (7-18) mg/dl Creatinine (0.6-1.2) mg/dl Est Cr Clr Drug Dosing ml/min Est GFR ( Amer) Est GFR (Non-Af Amer) BUN/Creatinine Ratio (10-20) Glucose (70-99) mg/dl Calcium (8.5-10.1) mg/dl Magnesium (1.8-2.4) mg/dl Total Bilirubin (0.2-1) mg/dl AST (15-37) U/L ALT (12-78) U/L Alkaline Phosphatase (45-117) U/L Total Protein (6.4-8.2) gm/dl Albumin (3.4-5.0) gm/dl Globulin (2.5-4.0) gm/dl Albumin/Globulin Ratio (0.9-2) TSH (0.300-4.500) uIu/ml Urine Color Yellow Urine Appearance Cloudy A (Clear) Urine pH 8.5 H (4.5-7.5) Ur Specific [place] 1.013 (1.000-1.030) Urine Protein Negative (Negative) Urine Glucose (UA) Negative (Negative) Urine Ketones Negative (Negative) Urine Blood Negative (Negative) Urine Nitrite Negative (Negative) Urine Bilirubin Negative (Negative) Urine Urobilinogen Negative (Negative) Ur Leukocyte Esterase Negative (Negative) Urine WBC (Auto) 1-5 (0-5) /hpf Urine RBC (Auto) 0-4 (0-4) /hpf U Hyaline Cast (Auto) 1-5 (0-5) /lpf U Epithel Cells (Auto) 5-10 H (0-5) /lpf Urine Bacteria (Auto) Negative (Negative) Administered Medications Hydroxychloroquine Sulfate (Plaquenil) 200 mg PO BID DODIE Stop: 01/23/19 20:59 Last Admin: 12/24/18 20:37 Dose: 200 mg Documented by: [id number] Meloxicam (Mobic) 7.5 mg PO BID DODIE Stop: 01/23/19 20:59 Last Admin: 12/24/18 20:36 Dose: 7.5 mg Documented by: [id number] Multivitamins/Minerals (Caltrate Plus) 1 tab PO BID DODIE Stop: 01/23/19 20:59 Last Admin: 12/24/18 20:36 Dose: 1 tab Documented by: [id number] Pantoprazole Sodium (Protonix) 40 mg PO HS DODIE Stop: 01/23/19 20:59 Last Admin: 12/24/18 20:36 Dose: 40 mg Documented by: [id number] Discontinued Medications Sodium Chloride (Nss) 500 mls @ 999 mls/hr IV .Q31M ONE Stop: 12/24/18 11:53 Last Infusion: 12/24/18 12:15 Dose: 0 mls/hr Documented by: [id number] Admin: 12/24/18 11:38 Dose: 999 mls/hr Documented by: [id number] Ibuprofen (Advil) 400 mg PO ONE ONE Stop: 12/24/18 14:01 Last Admin: 12/24/18 14:40 Dose: 400 mg Documented by: [id number] Discharge Plan Visit Data *Final* Discharge Date/Time: 12/24/18 12:40 Chief Complaint: Syncope Stated Complaint: syncope ED Provider: Herman Knapp ED Midlevel Provider: Marjorie Singer Discharge Problem: Syncope and collapse Patient Disposition: Admitted As Inpatient Discharge Instructions Interventions: ED Discharge Assessment Last Done: 12/24/18 12:40
[2018-12-24 09:37] LABS: Basophils # (auto) 0.01 K/uL (0-0.2); Basophils % (auto) 0.2 %; Eosinophils # (auto) 0.24 K/uL (0-0.5); Eosinophils % (auto) 4.4 %; Hematocrit (blood only) 38.8 % (37-47); Hemoglobin 12.6 g/dL (12.0-16.0); Immature Granulocytes # (auto) 0.01 K/uL (0.00-0.02); Immature Granulocytes % (auto) 0.2 %; Lymphocytes # (auto) 0.97 K/uL (1.2-3.4); Lymphocytes % (auto) 17.8 %; Mean Corpuscular Hgb Conc 32.5 g/dL (32-36); Mean Corpuscular Volume 83.3 fL (80-100); Mean Platelet Volume 11.9 fL (7.4-10.4); Monocytes % (auto) 9.2 %; Neutrophils # (auto) 3.71 K/uL (1.4-6.5); Neutrophils % (auto) 68.2 %; Platelet Count 216 K/uL (130-400); RDW Coefficient of Variation 13.7 % (11.5-14.5); RDW Standard Deviation 41.5 fL (36.4-46.3); Red Blood Count 4.66 M/uL (4.2-5.4); White Blood Count 5.44 K/uL (4.8-10.8)
[2018-12-24 09:51] LABS: Partial Thromboplastin Time 26.3 Seconds (21.0-31.0); Prothrombin Time 10.6 Seconds (9.0-12.0)
--- NOTE | 2018-12-24 09:52 | CT Scan Report ---
CT head/brain wo con CLINICAL HISTORY: syncope COMPARISON STUDY: No previous studies for comparison. TECHNIQUE: Axial CT of the brain is performed from the vertex to the skull base. IV contrast was not administered for this examination. A dose lowering technique was utilized adhering to the principles of ALARA. CT DOSE: 537.48 mGy.cm FINDINGS: No intra or extra-axial mass lesions are visualized. There is no CT evidence of acute cortical infarc tion. There is no evidence of midline shift. There is no acute hemorrhage. No calvarial fractures ar e visualized. There is mild frontal lobe atrophy. There is a prominent ossification involving the anterior falx There is no evidence of pathologic ventricular dilatation. There is no evidence of acute sinusitis IMPRESSION: No acute intracranial findings Electronically signed by: Santos Solitario M.D. 12/24/2018 9:51 AM
[2018-12-24 09:54] LABS: Albumin Level 3.9 gm/dl (3.4-5.0); BUN Creatinine Ratio 16.3 (10-20); Creatinine Clr Calc Pharmacy 48.3 ml/min; Est GFR (African American) 48.2; Est GFR (Non-African American) 41.6; Magnesium 2.1 mg/dl (1.8-2.4); Potassium 3.6 mmol/L (3.5-5.1)
--- NOTE | 2018-12-24 10:03 | XRay Report ---
XR chest 1V portable CLINICAL HISTORY: syncope COMPARISON STUDY: 08/12/2018 FINDINGS: The cardiac and mediastinal contours are normal. There is no evidence of focal pulmonary co nsolidation. There is no evidence of failure. No pleural effusions are visualized.[ IMPRESSION: No active disease in the chest. Electronically signed by: Santos Solitario M.D. 12/24/2018 10:02 AM
[2018-12-24 10:05] LABS: Albumin Globulin Ratio 1.3 (0.9-2); Bilirubin,Total 0.5 mg/dl (0.2-1); Globulin 3.1 gm/dl (2.5-4.0)
[2018-12-24] MEDS ORDERED: SODIUM CHLORIDE 0.9% 500 ML IV ONE (11:23)
[2018-12-24 11:25] LABS: Appearance Urine Cloudy (Clear); Bacteria Urine Automated Negative (Negative); Bilirubin Urine Negative (Negative); Blood Urine Negative (Negative); Color Urine Yellow; Glucose Urine UA Negative (Negative); Ketones Urine Negative (Negative); Leukocyte Esterase Urine Negative (Negative); Nitrite Urine Negative (Negative); Protein Urine Negative (Negative); RBC Urine Automated 0-4 /hpf (0-4); Specific Gravity Urine 1.013 (1.000-1.030); Urobilinogen Urine Negative (Negative); pH Urine 8.5 (4.5-7.5)
--- NOTE | 2018-12-24 12:30 | History & Physical Report ---
Date of Service December 24, 2018 Assessment & Plan (1) Syncope and collapse: Uncertain etiology HR was in the 40s per ORTHODONTIC LABORATORY TECHNICIAN who was present for second episode Trop pending EKG with RBBB that is not new CBC, PRP, TSH WNL Lyme pending CXR, UA neg for infection CT head neg for acute ECHO pending Tele monitor Was seen by Dr. Harris several years ago for same issue with neg 30 day event monitor and tilt table If workup neg, will need repeat event monitor and f/u with Dr. Harris Pt has no respiratory sx, pulse ox, BP, and HR are not suggestive of PE--will hold on CTA for now (2) Erosive osteoarthritis: continue home meds cymbalta is for pain control (3) CKD (chronic kidney disease), stage III: Cr is at baseline 1.3 Monitor (4) GERD (gastroesophageal reflux disease): continue home meds (5) HTN (hypertension): continue home meds (6) DVT prophylaxis: SCDs History of Present Illness Primary Care Provider: Michael King MD 63 y/o F c/o syncope. Pt states she was having a normal day for herself. She drove to the medical offices in front of the hospital to take her in for an acute visit and had no issues driving. She opened the door to get out of the car and her next memory was him standing over her and she was lying in the parking lot. He helped her up and they went inside. She was advised to be seen in the ED and was put in a wheelchair. She insisted that her been seen for his acute issue and while they were wheeling her back with him, she passed out in the wheelchair. Isac Barragan NP was present and states that her HR was in the 40s during this time. Pt states that she was told that both episodes lasted less than 60 seconds. She states that immediately prior to LOC her visit went fuzzy, be no issues after. She did hit her neck when she fell and has a slight headache now, but no vision issues. She states that this happened 1.5-2 months ago when she was dropping her granddaughter off at day care. She had a full LOC that was less than 60 seconds. She thought that maybe her BP had dropped, so she d/c'd her --sartan medication. She has been checking her BP since that time and it is WNL. Pt is fatigued at present and with mild headache, but she feels otherwise her usual. Pt denies fever, SOB, chest pain, abd pain, n/v/c/d, LE pain or swelling. Pt retired recently and has been walking for exercise. No exercise intolerance, no inability to go about her day. Pt states she had a single episode of syncope in the parking lot of the hospital when she was arriving for work about 3 years ago. She had a 30 day event monitor and a tilt table test that she reports as neg. She was seen by Dr. Harris and told to return if she had repeat sx. She had no repeat sx until the episodes noted above. Pt states that in 2007 or 2008 she had a large workup for osteomyelitis in her finger related to rheum dx and a CT chest was noted for "spots". She had repeat CT Q6 months x2 with f/u with Dr. Hector and was told the spots were stable and nothing to do. Allergies Allergy/AdvReac Type Severity Reaction Status Date / Time rifapentine Allergy Mild CARDIAC Verified 12/24/18 10:14 ARRHYTHMIA AND RENAL FAILURE rifampin Allergy Unknown Unknown Uncoded 12/24/18 10:14 Roxicet TABS Allergy Unknown Unknown Uncoded 12/24/18 10:14 Home Medications Home Medications Medication Instructions Recorded Confirmed Type Brain [id number] Q10 1 tab PO QAM 06/21/18 12/24/18 History Calcium 600 + D(3) 1 tab PO BID 06/21/18 12/24/18 History diclofenac sodium [Voltaren] 1 dose TOPICAL UD PRN 06/21/18 12/24/18 History duloxetine 30 mg PO Q OTHER DAY 06/21/18 12/24/18 History hydroxychloroquine [Plaquenil] 200 mg PO BID 06/21/18 12/24/18 History meloxicam 7.5 mg PO BID 06/21/18 12/24/18 History pantoprazole 40 mg PO HS 06/21/18 12/24/18 History triamterene-hydrochlorothiazid 1 cap PO QAM 06/21/18 12/24/18 History Past Med/Surg History Medical History Chronic kidney disease, stage 3 Erosive osteoarthritis Hypertension Osteomyelitis Right bundle branch block (RBBB) Spondylolysis Surgical History History of bilateral tubal ligation History of breast biopsy aspiration of cyst from left breast benign History of cholecystectomy History of colonoscopy History of dilatation and curettage History of esophagogastroduodenoscopy (EGD) History of hand surgery right finger left hand--I&D History of tooth extraction History of total abdominal hysterectomy and bilateral salpingo-oophorectomy Family History Grandmother (Maternal) Family history of diabetes mellitus Father Myocardial infarction Other No family history of adverse response to anesthesia Social History Preferred Language: Mauritian Communication Ability: Effective Newspaper Illustrator Required: No Beliefs That Will Affect Care: None Current Living Situation: Spouse Feels Safe at Home: Yes Smoking Status: Never smoker Second Hand Exposure: Yes (parents smoked) ; Hx Alcohol Use: No Hx Substance Use: No Review of Systems Review of Systems: Pertinent positives and negatives reviewed in HPI--all others negative Physical Exam Constitutional: WD/WN, vitals as above Eyes: normal visual naik by confrontation and + anicteric sclerae Neck: normal visual inspection and trachea midline Respiratory: normal respiratory effort, lungs clear to auscultation Cardiovascular: Rate/Rhythm: regular rate and regular rhythm Gastrointestinal (Abdomen): Inspection/Auscultation: abdomen not distended Percussion/Palpation: abdomen soft; abdomen nontender Musculoskeletal: Head/Neck/Chest: normocephalic and head atraumatic negative for edema, peripheral pulses intact Skin: no rashes, warm and dry Neurologic: awake; not confused Speech / Cognition: normal speech Psychiatric: A+Ox3, euthymic affect Results & Data Vital Signs (Past 12 Hours) Vital Signs Temp Pulse Pulse Resp BP BP Pulse Ox 12/24/18 10:59 76 16 160/71 H 98 12/24/18 09:12 97 12/24/18 08:59 36.6 C 90 16 171/76 H 100 Diagnostic Findings CXR: neg for acute CT head: neg for acute Code Status & VTE Plan Code Status Full code VTE Prophylaxis Plan VTE Prophylaxis will be ordered: Yes PG Care Time/CCT Total # of Minutes Spent Total Time Spent with Patient: Total time spent is greater than 50% in coordination of care (as documented) at patient's floor/unit and/or counseling patient:
[2018-12-24] MEDS ORDERED: ONDANSETRON INJ 2 MG/ML 2 ML VIAL IV PRN (13:28)
[2018-12-24] MEDS ORDERED: DICLOFENAC SOD 1% GEL 100 GM TUBE EXT PRN (13:28)
[2018-12-24] MEDS ORDERED: MAGNESIUM HYDROXIDE SUSP 30 ML UDC PO PRN (13:28)
[2018-12-24] MEDS ORDERED: IBUPROFEN 200 MG TAB PO ONE (14:00)
[2018-12-24 15:05] LABS: Lyme Ab IgM w/WB Rflx Negative (Negative)
[2018-12-24 15:06] LABS: Lyme Ab IgG w/WB Rflx Negative (Negative)
[2018-12-24] MEDS: CALCIUM 600MG + VIT D 400 IU TAB PO SCH (20:36)
[2018-12-24] MEDS: MELOXICAM 7.5 MG TAB PO SCH (20:36)
[2018-12-24] MEDS: PANTOprazole 40 MG TAB PO SCH (20:36)
[2018-12-24] MEDS: HYDROXYCHLOROQUINE SULFATE 200 MG TAB PO SCH (20:37)
--- NOTE | 2018-12-24 21:55 | Progress Note ---
Date of Service December 24, 2018 Spoke with patient's nurse. Apparently the patient was ordered serial troponins upon admission. However, these did not get drawn. I then spoke with the lab. Lab states that there was an error in the ordering process such that because a comment was included on the initial order the following series of orders do not transmit to the lab. As a result of all the above, there have been no troponins drawn throughout patient's admission thus far. Plan: Ordered a troponin for now and for the a.m. Will try to check in on the patient later this evening. Emir Simpson, PGY3 Overnight call Results & Data Vital Signs (Past 12 Hours) Vital Signs Temp Pulse Pulse Resp BP Pulse Ox 12/24/18 19:15 36.5 C 74 20 156/55 H 95 12/24/18 18:43 74 12/24/18 15:15 36.6 C 78 18 141/56 H 96 12/24/18 13:59 73 12/24/18 13:32 36.6 C 78 17 172/68 H 99 12/24/18 12:00 72 16 154/72 H 97 12/24/18 10:59 76 16 160/71 H 98
[2018-12-25] MEDS: TRIAMTERENE/HCTZ 37.5/25MG CAP PO SCH (09:47)
[2018-12-25] MEDS: HYDROXYCHLOROQUINE SULFATE 200 MG TAB PO SCH ×2 (09:47→19:57)
[2018-12-25] MEDS: VITAMIN B COMPLEX TAB PO SCH (09:47)
[2018-12-25] MEDS: CALCIUM 600MG + VIT D 400 IU TAB PO SCH ×2 (09:47→19:57)
[2018-12-25] MEDS: MELOXICAM 7.5 MG TAB PO SCH ×2 (09:47→19:57)
[2018-12-25] MEDS: ACETAMINOPHEN 325 MG TAB PO PRN (10:31)
--- NOTE | 2018-12-25 13:34 | Cardiology Consultation ---
Date of Consultation December 25, 2018 Assessment & Plan (1) Syncope and collapse: The patient experienced 2 episodes of witnessed syncope in 3 episodes of presyncope yesterday afternoon. She had a similar episode 2 months ago and also 3 years ago. Workup previously was unremarkable. Will have Dr. Harris meet with the patient tomorrow to determine a workup strategy. (2) EKG abnormalities: The patient demonstrates a complete right bundle-branch block which has been present since 2016. (3) HTN (hypertension): Adequate control on current medical regimen. (4) Hypercholesterolemia: Diet controlled. History of Present Illness Attending Physician: Lee Long History of Present Illness Mrs. Daugherty was admitted yesterday after 2 episodes of witnessed syncope. This consultation was ordered to assist in her management. Of note, the patient had previously been seen by Dr. Harris for the same diagnosis. The patient was in her usual state of health until yesterday afternoon. She was driving her to an acute care visit in our office yesterday. Once the patient parked the car, she opened her door and remembers feeling that her vision was fuzzy." She did walk on the pavement with her leaning over her. She was able to get up, however, wall walking in the front door of the office, felt as if it was going to happen again. She sat down and her symptoms past. She then got into a wheelchair to accompany her ostomy to the acute office visit. While in the wheelchair, she again noticed a presyncopal event, however, her symptoms resolved quickly. While in the office for her 's visit, she had a witnessed episode of syncope while seated in a wheelchair. The nurse practitioner immediately checked her pulse and noted it to be 40 beats per minute. She was then sent to the emergency room for further care. She had an episode of syncope approximately 2 months ago. She had taken her granddaughter [facility] center and while at the front end alignment specialist pain her bill, had an episode of syncope and awoke on the floor quickly thereafter. In December 2015, she had experienced an episode of syncope while in the parking lot at work. She was seen by Dr. Harris in consultation and had a negative tilt test, and Holter monitor and long-term event monitor which revealed only PVCs on with her right bundle-branch block. At no time does the patient experience premorbid nausea, vomiting, or diapho resis. She has never experienced urinary or bowel incontinence nor has she had a postictal period. The patient has never experienced exertional chest pain or limiting dyspnea. She further denies PND, orthopnea, palpitations, lower extremity edema, and claudication. Currently, patient is resting comfortably in bed and without complaints. Past medical and surgical history 1. Hypertension 2. Hypercholesterolemia 3. RBBB 4. PVCs 5. Chronic renal failure 6. Osteopenia 7. Migraine headaches 8. Nephrolithiasis 9. Inflammatory arthritis 10. Cholecystectomy 11. Tubal ligation 12. D&C 13. Hand surgery 14. HEATHER/BSO Social history and lives with her Recently retired from [employer] No tobacco or alcohol Family history Father had history of early coronary artery disease Mother at 69 from respiratory failure Review of systems A 10 point review of systems was undertaken and negative except for that described above. Allergies Allergy/AdvReac Type Severity Reaction Status Date / Time rifapentine Allergy Mild CARDIAC Verified 12/24/18 10:14 ARRHYTHMIA AND RENAL FAILURE rifampin Allergy Unknown Unknown Uncoded 12/24/18 10:14 Roxicet TABS Allergy Unknown Unknown Uncoded 12/24/18 10:14 Home Medications Home Medications Medication Instructions Recorded Confirmed Type Brain [id number] Q10 1 tab PO QAM 06/21/18 12/24/18 History Calcium 600 + D(3) 1 tab PO BID 06/21/18 12/24/18 History diclofenac sodium [Voltaren] 1 dose TOPICAL UD PRN 06/21/18 12/24/18 History duloxetine 30 mg PO Q OTHER DAY 06/21/18 12/24/18 History hydroxychloroquine [Plaquenil] 200 mg PO BID 06/21/18 12/24/18 History meloxicam 7.5 mg PO BID 06/21/18 12/24/18 History pantoprazole 40 mg PO HS 06/21/18 12/24/18 History triamterene-hydrochlorothiazid 1 cap PO QAM 06/21/18 12/24/18 History Patient History Medical History Chronic kidney disease, stage 3 Erosive osteoarthritis Hypertension Osteomyelitis Right bundle branch block (RBBB) Spondylolysis Surgical History History of bilateral tubal ligation History of breast biopsy aspiration of cyst from left breast benign History of cholecystectomy History of colonoscopy History of dilatation and curettage History of esophagogastroduodenoscopy (EGD) History of hand surgery right finger left hand--I&D History of tooth extraction History of total abdominal hysterectomy and bilateral salpingo-oophorectomy Social History Preferred Language: Mongolian Communication Ability: Effective Nickel Plater Required: No Beliefs That Will Affect Care: None Current Living Situation: Spouse Feels Safe at Home: Yes Safety Concerns: Feels Safe At This Time Smoking Status: Never smoker Second Hand Exposure: Yes (parents smoked) ; Hx Alcohol Use: No Hx Substance Use: No Physical Exam Physical Exam: In general this is a well-developed well-nourished white female in no acute distress. HEENT exam is negative. Neck is supple with full carotid upstrokes. There are no carotid bruits. Jugular venous pressure is flat at 90. There is no thyromegaly. Cardiovascular exam reveals a regular rhythm with a normal S1 and S2. No S3, S4, or murmurs are noted. Lungs are clear without rales, rhonchi, or wheezes. Abdomen is soft and nontender without bruits. Extremities reveal intact radial artery and posterior tibial pulses bilaterally. There is no peripheral edema. Results & Data Vital Signs (Past 12 Hours) Vital Signs Temp Pulse Resp BP BP Pulse Ox 12/25/18 11:20 36.7 C 75 16 153/64 H 94 12/25/18 07:48 36.5 C 80 16 168/63 H 94 12/25/18 04:11 36.7 C 70 18 116/43 L 95 Laboratory Results CBC notes hemoglobin 12.6, hematocrit 38.8, white count 5.4, platelet count of [id number]. Electrolytes noted a sodium of 142, potassium 3.6, chloride 106, bicarb 31, BUN 22, creatinine 1.36, and glucose of 114. Troponin I levels less than 0.015. Diagnostic Findings EKG notes normal sinus rhythm and incomplete right bundle-branch block. Chest x-ray is negative. desk monitor noted 1 brief episode of an SVT. PG Care Time/CCT Total # of Minutes Spent Total Time Spent with Patient: Total time spent is greater than 50% in coordination of care (as documented) at patient's floor/unit and/or counseling patient:
[2018-12-25] MEDS: PANTOprazole 40 MG TAB PO SCH (19:57)
--- NOTE | 2018-12-25 22:46 | Hospitalist Progress Note ---
Date of Service December 25, 2018 Assessment & Plan (1) Syncope and collapse: likely associated with her bradycardia. Consulted Cardio on 12/25: awaiting input from elctrophysiologist. HR was in the 40s per DITTO MACHINE OPERATOR who was present for second episode Trop negative EKG with RBBB that is not new CBC, PRP, TSH WNL Lyme pending CXR, UA neg for infection CT head neg for acute ECHO pending Tele monitor Was seen by Dr. Harris several years ago for same issue with neg 30 day event monitor and tilt table Pt has no respiratory sx, pulse ox, BP, and HR are not suggestive of PE--will hold on CTA for now (2) Erosive osteoarthritis: continue home meds cymbalta is for pain control (3) CKD (chronic kidney disease), stage III: Cr is at baseline 1.3 Monitor (4) GERD (gastroesophageal reflux disease): continue home meds (5) HTN (hypertension): continue home meds B/P appears to be at goal. (6) DVT prophylaxis: SCDs Spent 35 minutes in management of patient. Included chart review, encounter, discussion with specialist. Subjective Patient currently denies anmy new complaints. She states she has discussed with projection printer pension administrator, and would like her to have EP studies to assess her syncope given her low heart rate and recurrent falls. Her only complaint today is that her left buttock hurts, but she attributes this to her fall. Pain is dull, mild to moderate in intensity non radiating. Review of Systems Review of Systems: Pertinent positives and negatives reviewed in HPI--all others negative Physical Exam Physical Exam: Constitutional: WD/WN, vitals as above Eyes: normal visual naik by confrontation and + anicteric sclerae Neck: normal visual inspection and trachea midline Respiratory: normal respiratory effort, lungs clear to auscultation Cardiovascular: Rate/Rhythm: regular rate and regular rhythm Gastrointestinal (Abdomen): Inspection/Auscultation: abdomen not distended Percussion/Palpation: abdomen soft; abdomen nontender Musculoskeletal: Head/Neck/Chest: normocephalic and head atraumatic negative for edema, peripheral pulses intact Skin: no rashes, warm and dry Neurologic: awake; not confused Speech / Cognition: normal speech Psychiatric: A+Ox3, euthymic affect Results & Data Vital Signs (Past 12 Hours) Vital Signs Temp Pulse Pulse Pulse Resp BP Pulse Ox 08/18/19 19:08 36.8 C 70 19 144/50 H 95 12/25/18 16:41 69 12/25/18 15:17 36.9 C 69 18 129/50 L 94 12/25/18 11:20 36.7 C 75 16 153/64 H 94 PG Care Time/CCT Total # of Minutes Spent Total Time Spent with Patient: Total time spent is greater than 50% in coordination of care (as documented) at patient's floor/unit and/or counseling patient:
[2018-12-26] MEDS: HYDROXYCHLOROQUINE SULFATE 200 MG TAB PO SCH ×2 (07:51→20:28)
[2018-12-26] MEDS: MELOXICAM 7.5 MG TAB PO SCH ×2 (07:51→20:28)
[2018-12-26] MEDS: CALCIUM 600MG + VIT D 400 IU TAB PO SCH ×2 (07:52→20:27)
[2018-12-26] MEDS: VITAMIN B COMPLEX TAB PO SCH (07:52)
[2018-12-26] MEDS: TRIAMTERENE/HCTZ 37.5/25MG CAP PO SCH (07:52)
[2018-12-26] MEDS: DULOXETINE HCL 30 MG CAP PO SCH (07:52)
[2018-12-26 08:43] LABS: Hematocrit (blood only) 37.3 % (37-47); Hemoglobin 12.2 g/dL (12.0-16.0); Mean Corpuscular Hgb Conc 32.7 g/dL (32-36); Mean Corpuscular Volume 83.4 fL (80-100); Mean Platelet Volume 11.6 fL (7.4-10.4); Platelet Count 208 K/uL (130-400); RDW Coefficient of Variation 13.8 % (11.5-14.5); RDW Standard Deviation 41.7 fL (36.4-46.3); Red Blood Count 4.47 M/uL (4.2-5.4); White Blood Count 5.51 K/uL (4.8-10.8)
[2018-12-26 09:16] LABS: BUN Creatinine Ratio 18.5 (10-20); Calcium 9.4 mg/dl (8.5-10.1); Creatinine Clr Calc Pharmacy 45.8 ml/min; Est GFR (African American) 45.4; Est GFR (Non-African American) 39.2; Potassium 3.7 mmol/L (3.5-5.1)
--- NOTE | 2018-12-26 13:21 | Hospitalist Progress Note ---
Date of Service December 26, 2018 Assessment & Plan (1) Syncope and collapse: likely associated with her bradycardia. Consulted Cardiology on 12/25: pacer tomorrow HR was in the 40s per AUTOMATED ACCESS SYSTEMS TECHNICIAN who was present for second episode Trop negative x2 EKG with RBBB that is not new CBC, PRP, TSH WNL Lyme negative CXR, UA neg for infection CT head neg for acute ECHO with EF 55% and no WMA Tele monitor Was seen by Dr. Harris several years ago for same issue with neg 30 day event monitor and tilt table Pt has no respiratory sx, pulse ox, BP, and HR are not suggestive of PE--will hold on CTA for now (2) Erosive osteoarthritis: continue home meds cymbalta is for pain control (3) CKD (chronic kidney disease), stage III: Cr baseline 1.3, mild increase today to 1.43, repeat prp am (4) GERD (gastroesophageal reflux disease): continue pantoprazole (5) HTN (hypertension): continue triamterene - hctz (6) DVT prophylaxis: SCDs Supervising Physician Co-Signing Physician Notes I have seen and examined pt and agree with ESTRELLA Dey exam , assessment and plan. Subjective Ms. Daugherty feels well. No events overnight. She did see cardiology this morning and they are planning on a pacemaker for tomorrow. Review of Systems Review of Systems: All systems reviewed & are unremarkable except as noted in HPI & below Physical Exam Physical Exam: General: no distress Eyes: normal inspection, PERLL Respiratory: chest non tender, clear to auscultation, normal breath sounds, no respiratory distress, no accessory muscle use Cardiac: regular rate and rhythm, no rub or gallop, no murmur, no edema, no jvd GI/: active bowel sounds, no abd pain or tenderness, soft, non distended Extremities: normal range of motion, normal strength, non tender Neuro/Psych: alert and oriented x 3, normal mood and affect Skin: normal color, dry Results & Data Vital Signs (Past 12 Hours) Vital Signs Temp Pulse Pulse Resp BP Pulse Ox 12/26/18 11:30 36.6 C 78 18 143/54 H 95 12/26/18 10:04 76 12/26/18 07:10 36.8 C 74 16 133/54 L 96 12/26/18 04:22 36.6 C 68 18 140/58 L 96 PG Care Time/CCT Total # of Minutes Spent Total Time Spent with Patient: Total time spent is greater than 50% in coordination of care (as documented) at patient's floor/unit and/or counseling patient:
[2018-12-26] MEDS: LACTATED RINGER'S 1,000 ML IV SCH (18:54)
[2018-12-26] MEDS: PANTOprazole 40 MG TAB PO SCH (20:28)
[2018-12-27] MEDS: HYDROXYCHLOROQUINE SULFATE 200 MG TAB PO SCH ×2 (08:05→21:07)
[2018-12-27] MEDS: CALCIUM 600MG + VIT D 400 IU TAB PO SCH ×2 (08:06→21:06)
[2018-12-27] MEDS: VITAMIN B COMPLEX TAB PO SCH (08:06)
[2018-12-27] MEDS: MELOXICAM 7.5 MG TAB PO SCH ×2 (08:06→21:06)
[2018-12-27] MEDS: TRIAMTERENE/HCTZ 37.5/25MG CAP PO SCH (08:06)
[2018-12-27 08:36] LABS: Calcium 9.4 mg/dl (8.5-10.1); Creatinine Clr Calc Pharmacy 46.5 ml/min; Est GFR (African American) 46.6; Est GFR (Non-African American) 40.2; Potassium 4.1 mmol/L (3.5-5.1)
[2018-12-27] MEDS: LACTATED RINGER'S 1,000 ML IV SCH (09:13)
--- NOTE | 2018-12-27 09:29 | Cardiology Progress Note ---
Date of Service December 26, 2018 Assessment & Plan (1) Syncope and collapse: She has now had recurrent syncope with no clear explanation. She was evaluated several years ago with no etiology identified. On this occasion is reported (when she became unconscious transiently and then started to wake up in the doctor's office) that her heart rate was 40. It is most likely bradycardia, she does have a right bundle branch block and could develop complete heart block transiently. No evidence that she has a tacky arrhythmia although that is always conceivable. Options include monitoring (possibly long-term monitoring with a loop recorder) to identify a cause of syncope, however recurrent syncope can be dangerous. She completely loses consciousness and has had minor injury but nothing major but she does drive, etc. The other option is to treat the most likely cause of her syncope which is bradycardia. That would require a pacemaker, which will also monitor for a tach arrhythmia if that would be the case. It probably would not treat it but would at least identify it. I would favor that approach, proving that this is bradycardia would potentially be dangerous and bradycardias the most likely cause. I discussed pacemaker mentation with her and she is agreeable. (2) RBBB (right bundle branch block): She has a right bundle branch block pattern which is long-standing, she does not have [place] prolongation and as such in and of itself this is a benign abnormality. However in the setting of syncope it could indicate that she is transient left bundle branch block as well. That can occur without [place] prolongation and may be the most likely cause of her syncope. Subjective She is feeling well today, she has had no further syncopal events. She has had multiple syncopal events in the past, several years ago she had an extensive work-up short of electrophysiologic study or loop recorder implantation with no etiology identified. She did well until about a month ago when she had a syncopal event, she now had several presyncopal and several syncopal events over relatively short period of time prompting admission. One of these episodes occurred in Isac Barragan's office, her pulse was checked and it is reported that it was 40 but she believes she was starting to wake up by then as the episode was quite transient. Following admission she has not had any. She has no other associated symptoms such as chest discomfort, shortness of breath or palpitations. Physical Exam Physical Exam: Constitutional: Alert, cooperative and in no distress. HEENT: Unremarkable Neck: No jugular venous distention, carotid pulses are normal and equal bilaterally without bruits. Pulmonary: Clear to auscultation bilaterally. Cardiac: Regular rhythm with no murmur, gallop or rub. Abdomen: Soft, nontender with normal bowel sounds. Extremities: No edema. Distal pulses intact. Neurologic: No focal findings. Gait is steady. Skin: No rash, ecchymoses or petechiae. Results & Data Vital Signs (Past 12 Hours) Vital Signs Temp Pulse Pulse Resp BP Pulse Ox 12/26/18 10:04 76 12/26/18 07:10 36.8 C 74 16 133/54 L 96 12/26/18 04:22 36.6 C 68 18 140/58 L 96 12/26/18 00:00 71 Diagnostic Findings Electrocardiogram: Sinus rhythm, normal [place] interval, right bundle branch block Telemetry: Sinus rhythm, no significant arrhythmia PG Care Time/CCT Total # of Minutes Spent Total Time Spent with Patient: Total time spent is greater than 50% in coordination of care (as documented) at patient's floor/unit and/or counseling patient:
--- NOTE | 2018-12-27 10:20 | Cardiology Progress Note ---
Date of Service December 27, 2018 Assessment & Plan (1) Syncope and collapse: She presents now had recurrent syncope with no clear explanation. She was evaluated several years ago with no etiology identified. On this occasion it is reported (when she became unconscious transiently and then started to wake up in the doctor's office) that her heart rate was 40. Her syncopal events are most likely bradycardia, she does have a right bundle branch block and could develop complete heart block transiently. No evidence that she has a tachyarrhythmia although that is always conceivable. Options include monitoring (possibly long-term monitoring with a loop recorder) to identify a cause of syncope, however recurrent syncope can be dangerous. She completely loses consciousness and falls and has had minor injury but nothing major but she does drive, etc. The other option is to treat the most likely cause of her syncope which is bradycardia. That would require a pacemaker, which will also monitor for a tachyarrhythmia if that would be the case. It probably would not treat it but would at least identify it. I would favor that approach, proving that this is bradycardia would potentially be dangerous and bradycardia is the most likely cause. I discussed pacemaker implantation with her, I reviewed the indications, procedure, risks and alternatives and she understands and agrees to proceed. Consent obtained. I also reviewed conscious sedation with its risks with her and she is agreeable. Consent obtained. We will plan pacemaker implantation this afternoon. (2) RBBB (right bundle branch block): She has a right bundle branch block pattern which is long-standing, she does not have [place] prolongation and in and of itself this is a benign abnormality. However in the setting of syncope it could indicate that she is transient left bundle branch block as well causing sudden complete heart block and bradycardia. That can occur without [place] prolongation and may be the most likely cause of her syncope. To prove that would require monitoring during a symptom which is noted above could be dangerous. Subjective She continues to feel well today and has had no further lightheadedness or presyncope or syncope. She has not been very active but has no other complaints. Physical Exam Physical Exam: Constitutional: Alert, cooperative and in no distress. HEENT: Unremarkable Neck: No jugular venous distention, carotid pulses are normal and equal bilaterally without bruits. Pulmonary: Clear to auscultation bilaterally. Cardiac: Regular rhythm with no murmur, gallop or rub. Abdomen: Soft, nontender with normal bowel sounds. Extremities: No edema. Distal pulses intact. Neurologic: No focal findings. Gait is steady. Skin: No rash, ecchymoses or petechiae. Results & Data Vital Signs (Past 12 Hours) Vital Signs Temp Pulse Pulse Resp BP Pulse Ox 12/27/18 07:08 36.6 C 68 18 138/44 L 95 12/27/18 06:45 73 12/27/18 03:45 36.7 C 78 16 137/56 L 97 12/26/18 23:15 36.6 C 69 16 135/61 94 Laboratory Results Abnormal lab results 12/27/18 Range/Units 07:56 Chloride 109 H (98-107) mmol/L BUN 29 H (7-18) mg/dl Creatinine 1.40 H (0.6-1.2) mg/dl BUN/Creatinine Ratio 21.0 H (10-20) Diagnostic Findings Telemetry: Sinus rhythm, no significant arrhythmia PG Care Time/CCT Total # of Minutes Spent Total Time Spent with Patient: Total time spent is greater than 50% in coordination of care (as documented) at patient's floor/unit and/or counseling patient:
--- NOTE | 2018-12-27 11:33 | Pre Anesthesia Assessment ---
Date of Service December 27, 2018 Pre Sedation Assessment Vital Signs Temp Pulse Pulse Resp BP Pulse Ox 12/27/18 10:55 36.7 C 66 18 145/49 H 95 12/27/18 07:08 36.6 C 68 18 138/44 L 95 12/27/18 06:45 73 12/27/18 03:45 36.7 C 78 16 137/56 L 97 12/26/18 23:15 36.6 C 69 16 135/61 94 12/26/18 18:55 36.7 C 72 17 128/56 L 96 12/26/18 16:00 36.8 C 68 72 18 139/72 96 Cardiovascular RRR, no murmur, no edema Respiratory normal respiratory effort, lungs clear to auscultation Pre-Sedation Airway Assessment Smoking Status: Never smoker Hx Sleep Apnea: No Hx Difficult Intubation: No Short, Thick Neck: No Thyromental Distance: > or= 3.5 Finger Breadths Mallampati Class: II ASA: ASA2 NPO Status Date of Last Intake of Fluids: 12/26/18 Date of Last Intake of Solid Food: 12/26/18 Procedure Planning Contraindications for Sedation: none Current Medications Reviewed: Yes Notes The planned sedation has been discussed with the patient. Informed Consent was obtained. I have identified the patient, determined the appropriateness of sedation and have assessed the patient immediately prior to the procedure. All medicine(s) and interventions are by my order.
--- NOTE | 2018-12-27 12:32 | Hospitalist Progress Note ---
Date of Service December 27, 2018 Assessment & Plan (1) Syncope and collapse: likely associated with her bradycardia. Consulted Cardiology - pacer today HR was in the 40s per ROLL FORMING MACHINE SET UP OPERATOR who was present for second episode Trop negative x2 EKG with RBBB that is not new CBC, PRP, TSH WNL Lyme negative CXR, UA neg for infection CT head neg for acute ECHO with EF 55% and no WMA Tele monitor Was seen by Dr. Harris several years ago for same issue with neg 30 day event monitor and tilt table Pt has no respiratory sx, pulse ox, BP, and HR are not suggestive of PE--will hold on CTA for now (2) Erosive osteoarthritis: continue home meds cymbalta is for pain control (3) CKD (chronic kidney disease), stage III: Cr baseline 1.3, mild increase to 1.4, repeat prp am (4) GERD (gastroesophageal reflux disease): continue pantoprazole (5) HTN (hypertension): continue triamterene - hctz (6) DVT prophylaxis: SCDs Supervising Physician Co-Signing Physician Notes I have seen and examined pt and agree with ESTRELLA Dey exam , assessment and plan. Subjective Ms. Daugherty feels well, no complaints. No events on monitor overnight. For pacer today Review of Systems Review of Systems: All systems reviewed & are unremarkable except as noted in HPI & below Physical Exam Physical Exam: General: no distress Eyes: normal inspection, PERLL Respiratory: chest non tender, clear to auscultation, normal breath sounds, no respiratory distress, no accessory muscle use Cardiac: regular rate and rhythm, no rub or gallop, no murmur, no edema, no jvd GI/: active bowel sounds, no abd pain or tenderness, soft, non distended Extremities: normal range of motion, normal strength, non tender Neuro/Psych: alert and oriented x 3, normal mood and affect Skin: normal color, dry Results & Data Vital Signs (Past 12 Hours) Vital Signs Temp Pulse Pulse Resp BP Pulse Ox 12/27/18 10:55 36.7 C 66 18 145/49 H 95 12/27/18 07:08 36.6 C 68 18 138/44 L 95 12/27/18 06:45 73 12/27/18 03:45 36.7 C 78 16 137/56 L 97 PG Care Time/CCT Total # of Minutes Spent Total Time Spent with Patient: Total time spent is greater than 50% in coordination of care (as documented) at patient's floor/unit and/or counseling patient:
[2018-12-27] MEDS ORDERED: fentaNYL citrate 100 MCG/2 ML VIAL ONE (13:49)
[2018-12-27] MEDS ORDERED: MIDAZOLAM HCL 5 MG/ML 1 ML VIAL ONE (13:49)
[2018-12-27] MEDS ORDERED: CEFAZOLIN 250 MG/ML 1 GM VIAL ONE (13:49)
[2018-12-27] MEDS ORDERED: LIDOCAINE HCL 1% 20 ML VIAL ONE (13:56)
[2018-12-27] MEDS ORDERED: BACITRACIN INJ 50,000 UNIT VIAL ONE (13:56)
[2018-12-27] MEDS ORDERED: BACITRACIN OINT 0.9 GM PKT ONE (15:31)
--- NOTE | 2018-12-27 15:44 | Operative Report ---
Post Operative Report Pre & Post Diagnosis Operation Date: 12/27/18 13:40 Preoperative diagnosis: Syncope and bradycardia Postoperative diagnosis: Same Procedure Operation Date: 12/27/18 13:40 Actual Procedures Left subclavian venogram p Pacer with A/V Leads (Dual) - Lalo Harris MD Surgeon Lalo Harris MD Branch Service Specialist None Estimated Blood Loss 20 Findings Consistent with Post-Op Diagnosis Specimens None Anesthesia Type Local Complications none Disposition Disposition: PCU Description of Procedure After obtaining informed consent for the procedure, the patient was brought to the laboratory and prepped and draped in the standard sterile manner. The left prepectoral region was anesthetized with 1% lidocaine local anesthetic and dye was injected the left arm IV site to opacify the left subclavian vein. The subclavian vein was identified and found to be free of obstruction. Left axillary venipuncture was performed by percutaneous technique and a guidewire placed through the left subclavian vein into the superior vena cava. The area was further infiltrated with 1% lidocaine local anesthetic and a 5 cm incision was made parallel to the left clavicle and 2 cm below it and carried down to the anterior pectoralis fascia. A pacemaker pocket was formed by blunt dissection anterior to the pectoralis fascia and a bacitracin-soaked sponge (50,000 units in 50 cc normal saline solution) was placed in the pocket. An 8 Urdu Medtronic lead introducer was placed over the guidewire into the left subclavian vein, the dilator and guidewire were removed and a bipolar active fixation steroid tipped ventricular lead was advanced through the introducer into the superior vena cava. A guidewire was placed through the introducer and the introducer was stripped from the lead and guidewire. Another 8 Urdu Medtronic lead introducer was placed over the guidewire into the left subclavian vein, the dilator and guidewire were removed and a bipolar active fixation steroid tipped atrial lead was advanced through the introducer into the superior vena cava. A guidewire was placed back through the introducer and the introducer was stripped from the lead and guidewire. Using a curved stylette the ventricular lead was advanced through the right ventricular outflow tract into the pulmonary artery and then using a straight stylette was positioned in the right ventricular apex. The screw was extended fixing the lead in position. Pacing and sensing thresholds were evaluated in bipolar configuration and are recorded on the implant data sheet. Using a curved stylette the atrial lead was positioned in the region of the atrial appendage and the screw extended fixing the lead in position. Pacing and sensing thresholds were evaluated in bipolar configuration and are recorded on the implant data sheet. Once the leads were in position they were attached to the anterior pectoralis fascia using 2 sutures of 2-0 silk around each lead collar. The bacitracin- soaked sponge was removed from the pocket, hemostasis was obtained, the pacemaker was attached to the leads and placed in the pocket with the leads coiled beneath it. The incision was closed with a running double subcutaneous closure of 3-0 Vicryl absorbable suture, followed by running subcuticular skin closure of 4-0 Vicryl absorbable suture. Bacitracin ointment was placed on the incision and a pressure dressing applied. I attest to the content of the Intraoperative Record and any orders documented therein. Any exceptions are noted below.
[2018-12-27] MEDS ORDERED: ACETAMINOPHEN 325 MG TAB PO PRN (15:45)
[2018-12-27] MEDS ORDERED: KETOROLAC TROMETHAMINE 10 MG TABLET PO PRN (15:45)
--- NOTE | 2018-12-27 15:48 | Post Anesthesia Assessment ---
Date of Service December 27, 2018 Post Sedation Assessment Vital Signs Temp Pulse Pulse Resp BP Pulse Ox 12/27/18 10:55 36.7 C 66 18 145/49 H 95 12/27/18 07:08 36.6 C 68 18 138/44 L 95 12/27/18 06:45 73 12/27/18 03:45 36.7 C 78 16 137/56 L 97 12/26/18 23:15 36.6 C 69 16 135/61 94 12/26/18 18:55 36.7 C 72 17 128/56 L 96 12/26/18 16:00 36.8 C 68 72 18 139/72 96 Discharge Sedation Level of Care: Fast Track Phase II Post Sedation Plan On clinical assessment, the patient appears to have tolerated the sedation without complications. Patient is recovering as anticipated. Patient will continue to be monitored by nursing and may be discharged when sedation discharge criteria are met per below protocol. Upon Completions of procedure and additional 15 minutes continue every 5 minute vital signs and the P.A.R. score; then discharge to a Phase I or Fast Track to Phase II per the following guidelines: * Discharge Patient to appropriate Phase II area if PAR is 8 or greater or return to pre- procedure baseline. The post - procedure orders will be as directed. * If PAR score is less than 8 or not return to pre-procedure baseline then patient will follow Phase I monitoring till PAR is reached for Phase II. The Phase I may be done in procedure room or may call to secure a Phase I area. * If naloxone or flumazenil are used for reversal, hold in Phase I for continued monitoring from when last reversal dose was given for a minimum of 60 minutes or longer pending the nurse and/or physician discretion of patient condition before discharge to Phase II. Please call the Sedation Physician to re-evaluate and complete post-note for discharge to Phase II area. Do NOT discharge from procedure sedation or Phase 1 until post- sedation evaluation note is complete by procedure /sedation MD Sedation Discharge Instructions to be given to the patient at discharge to home.
[2018-12-27] MEDS: PANTOprazole 40 MG TAB PO SCH (21:06)
[2018-12-28] MEDS: ACETAMINOPHEN 325 MG TAB PO PRN (01:34)
[2018-12-28] MEDS ORDERED: CEFAZOLIN 2000MG 2,000 MG/15 ML SYR IV SCH (06:00)
[2018-12-28 08:31] LABS: Hematocrit (blood only) 39.4 % (37-47); Mean Corpuscular Volume 82.6 fL (80-100); Mean Platelet Volume 11.7 fL (7.4-10.4); Platelet Count 251 K/uL (130-400); RDW Coefficient of Variation 13.9 % (11.5-14.5); RDW Standard Deviation 41.7 fL (36.4-46.3); Red Blood Count 4.77 M/uL (4.2-5.4); White Blood Count 7.83 K/uL (4.8-10.8)
--- NOTE | 2018-12-28 08:32 | XRay Report ---
XR chest 2V routine CLINICAL HISTORY: Pacemaker insertion. COMPARISON STUDY: Chest radiograph December 24, 2018. FINDINGS: There has been interval placement of a dual-lead left subclavian pacemaker. Lead tips proje ct over the right atrial appendage and the right ventricle. There is no pneumothorax. Cardiac size is normal. There is no evidence for pulmonary edema or pneumonia. There are cholecystectomy clips. IMPRESSION: No pneumothorax following placement of a dual-lead left subclavian pacemaker. Electronically signed by: Yoshi Garcia M.D. 12/28/2018 8:30 AM
--- NOTE | 2018-12-28 08:50 | Cardiology Progress Note ---
Date of Service December 28, 2018 Assessment & Plan (1) Syncope and collapse: She presents now had recurrent syncope with no clear explanation. She was evaluated several years ago with no etiology identified. On this occasion it is reported (when she became unconscious transiently and then started to wake up in the doctor's office) that her heart rate was 40. Her syncopal events are most likely bradycardia, she does have a right bundle branch block and could develop complete heart block transiently. No evidence that she has a tachyarrhythmia although that is always conceivable. Options include monitoring (possibly long-term monitoring with a loop recorder) to identify a cause of syncope, however recurrent syncope can be dangerous. She completely loses consciousness and falls and has had minor injury but nothing major but she does drive, etc. The other option is to treat the most likely cause of her syncope which is bradycardia. That would require a pacemaker, which will also monitor for a tachyarrhythmia if that would be the case. It probably would not treat it but would at least identify it. I would favor that approach, proving that this is bradycardia would potentially be dangerous and bradycardia is the most likely cause. Now with a pacemaker in place hopefully this will not happen again. (2) RBBB (right bundle branch block): She has a right bundle branch block pattern which is long-standing, she does not have NV prolongation and in and of itself this is a benign abnormality. However in the setting of syncope it could indicate that she is transient left bundle branch block as well causing sudden complete heart block and bradycardia. That can occur without NV prolongation and may be the most likely cause of her syncope. To prove that would require monitoring during a symptom which is noted above could be dangerous. (3) Status post placement of other cardiac pacemaker: The she is doing well post pacemaker implantation, the site looks good, the chest x-ray looks good and the pacemaker is functioning well. She is stable for discharge. I will place follow-up data in her discharge, and I would like her to come in for an incision check in 2 days. I will schedule that appointment. Subjective She is feeling quite well, no significant incisional discomfort. No chest discomfort. No further syncope. Physical Exam Physical Exam: The pacemaker site is clean and dry, no bleeding. No swelling. Minimal ecchymosis. Results & Data Vital Signs (Past 12 Hours) Vital Signs Temp Pulse Pulse Resp BP Pulse Ox 12/28/18 07:39 36.5 C 74 18 121/74 95 12/28/18 03:18 36.4 C L 68 17 145/76 H 96 12/27/18 23:56 36.6 C 70 17 121/70 97 12/27/18 22:20 72 Diagnostic Findings Electric cardiogram postop: Sinus rhythm, right bundle branch block, appropriate pacemaker inhibition Telemetry: Normal pacemaker function, predominantly inhibition Pacemaker evaluation: Excellent pacing and sensing characteristics Chest x-ray: Good lead position, no pneumothorax PG Care Time/CCT Total # of Minutes Spent Total Time Spent with Patient: Total time spent is greater than 50% in coordination of care (as documented) at patient's floor/unit and/or counseling patient:
[2018-12-28] MEDS: MELOXICAM 7.5 MG TAB PO SCH (09:00)
[2018-12-28] MEDS: DULOXETINE HCL 30 MG CAP PO SCH (09:00)
[2018-12-28] MEDS: CALCIUM 600MG + VIT D 400 IU TAB PO SCH (09:00)
[2018-12-28] MEDS: HYDROXYCHLOROQUINE SULFATE 200 MG TAB PO SCH (09:00)
[2018-12-28 09:05] LABS: BUN Creatinine Ratio 20.1 (10-20); Calcium 9.5 mg/dl (8.5-10.1); Creatinine Clr Calc Pharmacy 40.9 ml/min; Est GFR (African American) 39.9; Est GFR (Non-African American) 34.4; Potassium 3.8 mmol/L (3.5-5.1)
[2018-12-28] MEDS: TRIAMTERENE/HCTZ 37.5/25MG CAP PO SCH (09:30)
[2018-12-28] MEDS: VITAMIN B COMPLEX TAB PO SCH (09:30)
--- NOTE | 2018-12-28 10:37 | Discharge Summary ---
Date of Service December 28, 2018 Admission HPI Per Admitting Provider 63 y/o F c/o syncope. Pt states she was having a normal day for herself. She drove to the medical offices in front of the hospital to take her in for an acute visit and had no issues driving. She opened the door to get out of the car and her next memory was him standing over her and she was lying in the parking lot. He helped her up and they went inside. She was advised to be seen in the ED and was put in a wheelchair. She insisted that her been seen for his acute issue and while they were wheeling her back with him, she passed out in the wheelchair. Isac Barragan NP was present and states that her HR was in the 40s during this time. Pt states that she was told that both episodes lasted less than 60 seconds. She states that immediately prior to LOC her visit went fuzzy, be no issues after. She did hit her neck when she fell and has a slight headache now, but no vision issues. She states that this happened 1.5-2 months ago when she was dropping her granddaughter off at day care. She had a full LOC that was less than 60 seconds. She thought that maybe her BP had dropped, so she d/c'd her --sartan medication. She has been checking her BP since that time and it is WNL. Pt is fatigued at present and with mild headache, but she feels otherwise her usual. Pt denies fever, SOB, chest pain, abd pain, n/v/c/d, LE pain or swelling. Pt retired recently and has been walking for exercise. No exercise intolerance, no inability to go about her day. Pt states she had a single episode of syncope in the parking lot of the hospital when she was arriving for work about 3 years ago. She had a 30 day event monitor and a tilt table test that she reports as neg. She was seen by Dr. Harris and told to return if she had repeat sx. She had no repeat sx until the episodes noted above. Pt states that in 2007 or 2008 she had a large workup for osteomyelitis in her finger related to rheum dx and a CT chest was noted for "spots". She had repeat CT Q6 months x2 with f/u with Dr. Hector and was told the spots were stable and nothing to do. Principal Diagnosis Syncope, bradycardia Discharge Exam Constitutional WD/WN, vitals as above Respiratory normal respiratory effort, lungs clear to auscultation Cardiovascular RRR, no murmur, no edema Gastrointestinal (Abdomen) Inspection/Auscultation: abdomen normal to inspection and normal bowel sounds; abdomen not distended Percussion/Palpation: abdomen soft; abdomen nontender Musculoskeletal no cyanosis or clubbing, extremities motor strength 5/5 Skin no rashes, warm and dry Neurologic moves all extremities and awake Psychiatric A+Ox3, euthymic affect Discharge Data Allergies Allergy/AdvReac Type Severity Reaction Status Date / Time rifapentine Allergy Mild CARDIAC Verified 12/24/18 10:14 ARRHYTHMIA AND RENAL FAILURE rifampin Allergy Unknown Unknown Uncoded 12/24/18 10:14 Roxicet TABS Allergy Unknown Unknown Uncoded 12/24/18 10:14 Consultations 12/24/18 11:30 ED Decision to Admit Stat 12/24/18 13:28 Consult Case Management - Discharge Planning Routine 12/25/18 08:34 Consult Cardiology Routine Procedures Performed Operation Date: 12/27/18 13:40 Actual Procedures p Pacer with A/V Leads (Dual) - Lalo Harris MD s Venogram, Unilateral - Lalo Harris MD Ordered Studies 12/24/18 09:10 CT head/brain wo con Stat 12/27/18 13:45 EP Lab Images for PACS ONCE Hospital Course (1) Syncope and collapse: likely associated with her bradycardia. HR was in the 40s per HEAD BAKER who was present for second episode Trop negative x2 EKG with RBBB that is not new CBC, PRP, TSH WNL Lyme negative CXR, UA neg for infection CT head neg for acute ECHO with EF 55% and no WMA Was seen by Dr. Harris several years ago for same issue with neg 30 day event monitor and tilt table Pt has no respiratory sx, pulse ox, BP, and HR are not suggestive of PE Consulted Cardiology - pacer placed 12/28 Per cardiology, patient is ok for discharge today. She is feeling well, denies any dyspnea, cp, palpitations or any other discomforts. Has tolerated walking around and feels ready to head home (2) Erosive osteoarthritis: Hold meloxicam for kidney function cymbalta is for pain control (3) CKD (chronic kidney disease), stage III: Cr baseline 1.3, mild increase to 1.5 Patient is very hesitant to hold her triamterine-hctz as she says it will take as little as 24 hours off of it for her to notice fluid retention. Advised that she drink fluid liberally, hold home meloxicam and recheck kidney function on Wednesday. She does not have any documented output but she reports she is urinating normally and her urine has been normal color. (4) GERD (gastroesophageal reflux disease): continue pantoprazole (5) HTN (hypertension): continue triamterene - hctz (6) DVT prophylaxis: SCDs Total Time Total Time Spent Total Time Spent (In Minutes): greater than 30 minutes Discharge Plan Discharge Items Patient Disposition: Home - Self-Care Reason For Visit: syncope Discharge Diagnosis: Syncope Discharge Goals: Decrease discomfort, Diagnostic testing and Therapeutic intervention Activity: As commented below Non-emergency contact: Primary Care Provider and Property And Equipment Clerk Call non-emergency contact if: you have any medication questions, your symptoms worsen, your pain is not controlled, your pain is worsening and you have a fever Follow-up/Referrals: Luc King MD [Primary Care Provider] - 01/04/19 2:20 pm (Please, follow up with Dr. King on WednesdayJanuary 04 at 2:20 pm. *If you need to change this appointment, call the office at [phone].) Lalo Harris MD [Physician] - 12/30/18 10:30 am (Please, follow up at [facility] Cardiology Office on WednesdayDecember 30 at 10:30 am. *The office is located in [address] of [facility]. This is the big building next to this [facility]. If you need to change this appointment, call [facility] at [phone].) Diet: Heart Healthy Other Ambulatory Orders: Basic Metabolic Panel (Routine) Timeframe: 20181230 Location: Determined by Patient Ordered By: Marjorie Kiser Addtl Provider Instructions: Please drink plenty of water and have your kidney function drawn on Wednesday. If you do not hear from anyone on Wednesday you should talk to your primary care provider on Wednesday concerning results. Please hold your meloxicam until you get the results from your kidney function and your provider tells you it's ok to restart. You can take Tylenol for pain. ACTIVITY RECOMMENDATIONS: * Do not raise affected arm over head for 2 weeks. SPECIAL CARE INSTRUCTIONS: * If bleeding occurs, apply direct pressure to area for 5 minutes. * Call your doctor if you have severe pain, fever, drainage or bleeding at site. * Keep dressing on and dry for 48 hours then remove. * Keep any scheduled doctor's appointment. * Implant Card - hand held device with website information given. SKIN IRRITATION: * You may experience some redness and/or swelling in the area where radiation was administered. If any skin irritation occurs, please contact your family physician. FOLLOW UP VISIT: Keep any scheduled doctor appointments. Prescriptions: Continued triamterene-hydrochlorothiazid 37.5-25 mg Capsule 1 cap PO QAM RF: 0 pantoprazole 40 mg Tablet,Delayed Release (Dr/Ec) 40 mg PO HS RF: 0 hydroxychloroquine [Plaquenil] 200 mg Tablet 200 mg PO BID RF: 0 duloxetine 30 mg Capsule,Delayed Release(Dr/Ec) 30 mg PO Q OTHER DAY RF: 0 Calcium 600 + D(3) 600 mg calcium- 200 unit Capsule 1 tab PO BID RF: 0 diclofenac sodium [Voltaren] 1 % Gel 1 dose TOPICAL UD PRN (Reason: Pain) RF: 0 Brain Otbow-DMF-Me Q10 140-10-10 mg Tablet 1 tab PO QAM RF: 0 Discontinued meloxicam 7.5 mg Tablet 7.5 mg PO BID RF: 0 Stand-Alone Forms: [facility] Discharge Orders: Discharge Order (Routine); Ordered 12/28/18 Ordered By: Marjorie Kiser Admission Data Admit Date/Time: 12/25/18 12:38 Attending Provider: Christiano Prakahs Admit Provider: Rosi Ryan Primary Care Provider: Luc King Other Providers: Steven Silva ; Christiano Prakash Service: Telemetry
== END 2018-12-28 11:09 | disposition home or self-care (01) | DRG 244 ==
LOC: ED 08:47 → 2E 08:47 → SUATTDRO 12:23 → 2E 12:40 → SUATTDRO 12-25 12:38

== ENCOUNTER 2019-06-11 20:06 | Observation (INO) ==
[2019-06-11] MEDS ORDERED: SODIUM CHLORIDE 0.9% 1000ML 500 ML IV ONE (20:47)
[2019-06-11] MEDS ORDERED: MECLIZINE HCL 25 MG TAB PO STA (20:47)
[2019-06-11 21:17] LABS: Basophils # (auto) 0.02 K/uL (0-0.2); Basophils % (auto) 0.3 %; Eosinophils # (auto) 0.28 K/uL (0-0.5); Eosinophils % (auto) 4.5 %; Hematocrit (blood only) 38.7 % (37-47); Hemoglobin 12.3 g/dL (12.0-16.0); Immature Granulocytes # (auto) 0.04 K/uL (0.00-0.02); Immature Granulocytes % (auto) 0.6 %; Lymphocytes # (auto) 1.41 K/uL (1.2-3.4); Lymphocytes % (auto) 22.6 %; Mean Corpuscular Hemoglobin 26.7 pg (25-34); Mean Corpuscular Hgb Conc 31.8 g/dL (32-36); Mean Corpuscular Volume 83.9 fL (80-100); Mean Platelet Volume 11.5 fL (7.4-10.4); Monocytes # (auto) 0.76 K/uL (0.11-0.59); Monocytes % (auto) 12.2 %; Neutrophils # (auto) 3.73 K/uL (1.4-6.5); Neutrophils % (auto) 59.8 %; Platelet Count 222 K/uL (130-400); RDW Coefficient of Variation 15.1 % (11.5-14.5); RDW Standard Deviation 46.2 fL (36.4-46.3); Red Blood Count 4.61 M/uL (4.2-5.4); White Blood Count 6.24 K/uL (4.8-10.8)
--- NOTE | 2019-06-11 21:19 | XRay Report ---
XR chest 1V portable HISTORY: Atypical chest pain. COMPARISON: Chest 12/28/2018. FINDINGS: The lungs are clear. Cardiac silhouette is normal in size. No pleural effusions. No pneumot horax. Left-sided dual-chamber pacemaker. IMPRESSION: No acute process. ACT 112: Negative or not required by law. Electronically signed by: Ho Keller M.D. 06/11/2019 9:18 PM
[2019-06-11 21:27] LABS: Partial Thromboplastin Ratio 0.9; Partial Thromboplastin Time 24.6 Seconds (21.0-31.0); Prothrombin Time 10.6 Seconds (9.0-12.0)
[2019-06-11 21:34] LABS: Alanine Aminotransferase 29 U/L (12-78); Albumin Level 3.8 gm/dl (3.4-5.0); Aspartate Aminotransferase 25 U/L (15-37); BUN Creatinine Ratio 18.8 (10-20); Blood Urea Nitrogen 22 mg/dl (7-18); Calcium 9.6 mg/dl (8.5-10.1); Carbon Dioxide 31 mmol/L (21-32); Chloride 103 mmol/L (98-107); Creatinine Clr Calc Pharmacy 55.6 ml/min; Est GFR (African American) 56.7; Est GFR (Non-African American) 48.9; Glucose 125 mg/dl (70-99); Magnesium 1.7 mg/dl (1.8-2.4); Potassium 3.7 mmol/L (3.5-5.1); Sodium 138 mmol/L (136-145)
--- NOTE | 2019-06-11 21:37 | CT Scan Report ---
HEAD CT NONCONTRAST CT DOSE: 537.48 mGy.cm HISTORY: vertigo eval for cva TECHNIQUE: Multiaxial CT images of the head were performed without the use of intravenous contrast. A utomated exposure control was utilized for this study. A dose lowering technique was utilized adheri ng to the principles of ALARA. Comparison: Head CT 12/24/2018. Findings: The paranasal sinuses and mastoid air cells are clear. The calvarium and skull base are int act. The ventricles and sulci are within normal limits. There is no mass, hematoma, midline shift, or acute infarct. Impression: No acute intracranial abnormality. ACT 112: Negative or not required by law. Electronically signed by: Ho Keller M.D. 06/11/2019 9:36 PM
[2019-06-11 21:39] LABS: Albumin Globulin Ratio 1.1 (0.9-2); Alkaline Phosphatase 115 U/L (45-117); Bilirubin,Total 0.4 mg/dl (0.2-1); Globulin 3.5 gm/dl (2.5-4.0); Total Protein 7.3 gm/dl (6.4-8.2); Troponin I < 0.015 ng/ml (0-0.045)
[2019-06-11] MEDS ORDERED: MAGNESIUM SULFATE / D5W 1 GM/100 ML BAG IV ONE (21:39)
--- NOTE | 2019-06-11 23:38 | History & Physical Report ---
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 Code: Full Code DVT ppx: Lovenox 40mg SQ q24h FENGI: Heart healthy diet, c/w home PPI Dispo: Obs, med surg tele (2) Vertigo: Suspect BPPV Improved with meclizine in ED Continue with Meclizine PRN Zofran 4mg IV for nausea Could benefit from Vestibular Rehab referral with [facility] at [facility] Might also benefit from low salt diet affecting semicircular canal fluid status Do not suspect posterior circulation pathology Unable to tolerate Casi-Hallpike in ED, defer to day team once feeling improved. (3) Hypomagnesemia: 1.7 in ED received Mag 1gm IV in ED Trend in AM (4) Presence of cardiac pacemaker: Review of EMR Visit ot [facility] - Dr. Silva on 04/14/19 with interrogation of Pacer A full pacemaker interrogation was performed with the [employer] insurance healthcare representative. Lead impedances, sensing, and thresholds were excellent. There were 5 brief episodes of paroxysmal SVT lasting less than 2 seconds in duration. Rate drop response has been activated 22 time since her pacemaker was implanted. Battery longevity estimated 15 years. No changes were made today. (5) Seronegative arthritis: continue with home Plaquenil 200mg PO BID Continue with home Sulfasalazine 500mg PO BID (6) HTN (hypertension): Continue with home triamterene 37.5mg-HCTZ 25mg Hemodynamically stable (7) Lumbar radiculopathy: continue with home gabapentin and home meloxicam continue with home Diclofenac PRN (8) GERD (gastroesophageal reflux disease): Continue with home PPI (9) CKD (chronic kidney disease), stage III: Today, Creat is improved to 1.19 from baseline of 1.4 Trend, renally dose meds as appropriate c/w home calcium (10) DVT prophylaxis: Lovenox 40mg SQ q24h History of Present Illness Chief Complaint: Dizziness; Chest Pain Primary Care Provider: Michael King MD Earlene Daugherty is a 63 y/o female with past medical hx of s/p cardiac pacemaker placement, RBBB, CKD III, Erosive Osteoarthritis, Seronegative RA, HTN, HLD, GERD who presented to [facility] with complaints of Dizziness and Chest pain. She notes onset of dizziness starting Wednesday at 2am which has been persistent, worsened with head movement and eye movement especially to the right; made better by keeping completely still. She describes dizziness as the room is jumping. It is improved with Meclizine in ED. She has never had this before. No unilateral weakness, slurred speech. She does not take daily ASA. No recent medication changes. Dizziness has caused nausea without vomiting. Chest pain started this evening around 6:30pm at rest. She noted it as central and pressure. She states she had bilateral bicep numbness. She also has left preauricular pain, posterior/left sided neck pain which she assumes is from remaining completely still. She notes she had some shortness of breath with the chest pain, with both resolving. No diaphoresis or vomiting. No recent chest pains with exertion. She notes staying well hydrated and has been drinking a lot of bottled water. Allergies Allergy/AdvReac Type Severity Reaction Status Date / Time rifapentine Allergy Mild CARDIAC Verified 06/11/19 21:25 ARRHYTHMIA AND RENAL FAILURE rifampin Allergy Unknown Unknown Uncoded 06/11/19 21:25 Roxicet TABS Allergy Unknown Unknown Uncoded 06/11/19 21:25 Home Medications Home Medications Medication Instructions Recorded Confirmed Type Calcium 600 + D(3) 1 tab PO BID 06/21/18 06/11/19 History diclofenac sodium [Voltaren] 1 dose TOPICAL UD PRN 06/21/18 06/11/19 History duloxetine 30 mg PO Q OTHER DAY 06/21/18 06/11/19 History hydroxychloroquine [Plaquenil] 200 mg PO BID 06/21/18 06/11/19 History pantoprazole 40 mg tablet,delayed 40 mg PO HS #90 tab 01/04/19 06/11/19 Rx release triamterene 37.5 1 cap PO QAM #90 cap 01/04/19 06/11/19 Rx mg-hydrochlorothiazide 25 mg capsule meloxicam 7.5 mg tablet 15 mg PO HS tab 01/25/19 06/11/19 History sulfasalazine 500 mg tablet 1,000 gm PO BID tab 02/15/19 06/11/19 History gabapentin 200 mg PO HS 06/11/19 06/11/19 History Past Med/Surg History Medical History Chronic kidney disease, stage 3 Erosive osteoarthritis Hypertension Osteomyelitis Right bundle branch block (RBBB) Spondylolysis Surgical History History of bilateral tubal ligation History of breast biopsy aspiration of cyst from left breast benign History of cholecystectomy History of colonoscopy History of dilatation and curettage History of esophagogastroduodenoscopy (EGD) History of hand surgery right finger left hand--I&D History of tooth extraction History of total abdominal hysterectomy and bilateral salpingo-oophorectomy Family History Grandmother (Maternal) Family history of diabetes mellitus Father Myocardial infarction Other No family history of adverse response to anesthesia Social History Preferred Language: Estonian Communication Ability: Effective Visual Impairment: No Limitations Cloud Systems Administrator Required: No Beliefs That Will Affect Care: Jehovah'S Witness Jehovah'S Witness 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 Current Living Situation: Spouse Current Living Situation Comment: lives with Other Information That Helps Us Care for You: No Feels Safe at Home: Yes Safety Concerns: Feels Safe At This Time Smoking Status: Never smoker Second Hand Exposure: Yes (parents smoked) ; Hx Alcohol Use: No Hx Substance Use: No Review of Systems Review of Systems: All systems reviewed & are unremarkable except as noted in HPI & below Constitutional: no fever, no chills and no body aches Eyes: no diplopia and no worsening vision Ear, Nose, Mouth, Throat: no nasal congestion and no sore throat Respiratory: no cough and no chest congestion Cardiovascular: no chest pain with activity and no edema Gastrointestinal: + abdominal pain (upper burning) and + nausea; no vomiting, no change in bowel habits and no diarrhea/loose stools Genitourinary: no dysuria and no difficulty urinating Musculoskeletal: + back pain (chronic low back) and + neck pain Integumentary: no rash Neurologic: as per Subjective / HPI; no confusion and no memory loss Endocrine: + polydipsia Physical Exam Constitutional: WD/WN, vitals as above cooperative and comfortable Eyes: PERRL, conjunctivae normal, anicteric sclerae ENMT: external ear and nose normal, oropharynx normal Ears: no TM abnormality Neck: normal visual inspection and trachea midline Respiratory: normal respiratory effort, lungs clear to auscultation Cardiovascular: RRR, no murmur, no edema not reproducible with palpation Gastrointestinal (Abdomen): Percussion/Palpation: abdomen soft; abdomen nontender, no guarding and abdomen not rigid Musculoskeletal: Head/Neck/Chest: normocephalic and head atraumatic Extremities: strength 5/5 throughout Skin: no rashes, warm and dry Neurologic: CN's II-XI intact bilaterally, moves all extremities and awake; no focal motor deficits and not confused Cranial Nerves: PERRL and EOM intact bilaterally Dizziness with head movement, with EOM, with nystagmus testing to the right Psychiatric: Orientation: alert and oriented x 3 Results & Data Vital Signs (Past 12 Hours) Vital Signs Temp Pulse Pulse Resp BP BP Pulse Ox 06/11/19 23:01 71 15 168/61 H 97 06/11/19 22:30 72 18 133/65 98 06/11/19 22:21 76 12 158/67 H 98 06/11/19 21:01 82 19 149/74 H 06/11/19 20:35 84 18 184/64 H 98 06/11/19 20:11 36.5 C 90 20 194/82 H 100 Code Status & VTE Plan Code Status Full Code VTE Prophylaxis Plan VTE Prophylaxis will be ordered: Yes Supervising Physician Co-Signing Physician Notes Patient was seen and examined by me personally. I reviewed the chart, the orders and discussed the case in detail with Dr. Ramin Claudio DO . I read this H&P and agree with its contents to entirety. Resident Activity Tracking Resident Involvement: Resident Care Provided Care Provided: Adult Hospital Medicine
[2019-06-11] MEDS ORDERED: ENOXAPARIN INJ 40 MG/0.4 ML SYR SQ SCH (23:45)
[2019-06-12] MEDS ORDERED: ENOXAPARIN INJ 40 MG/0.4 ML SYR ONE (00:14)
[2019-06-12] MEDS ORDERED: MECLIZINE HCL 25 MG TAB PO PRN (00:40)
[2019-06-12] MEDS ORDERED: NITROGLYCERIN SL 0.4 MG/TAB TAB SL PRN (00:40)
[2019-06-12] MEDS ORDERED: DICLOFENAC SOD 1% GEL 100 GM TUBE EXT PRN (00:40)
[2019-06-12] MEDS ORDERED: ONDANSETRON INJ 2 MG/ML 2 ML VIAL IV PRN (00:40)
[2019-06-12] MEDS ORDERED: ALUMINUM/MAGNESIUM SUSP 30 ML UDC PO PRN (00:40)
[2019-06-12] MEDS ORDERED: MAGNESIUM HYDROXIDE SUSP 30 ML UDC PO PRN (00:40)
[2019-06-12] MEDS ORDERED: ACETAMINOPHEN 325 MG TAB PO PRN (00:40)
[2019-06-12] MEDS ORDERED: POLYETHYLENE (MIRALAX) 17 GM PACK PO PRN (00:40)
--- NOTE | 2019-06-12 00:49 | Emergency Department Note ---
Entered by Miryam Wylie acting as a scribe for History of Present Illness General Chief complaint: Dizziness Stated complaint: DIZZY, JAW PAIN, TIRED Time Seen by Provider: 06/11/19 20:36 History of Present Illness Provider complaint: chest pain Onset (ago): hour(s) 2 Location: chest Radiation: abdomen (left) and other (jaw) Pain Consistency: + other (episode) Maximum Pain Intensity: 0 Relieved By: + other (rubbing chest) Associated symptoms: + denies other symptoms (ear pain, ear ringing, diarrhea, leg pain or swelling, urinary symptoms), + headaches and + other (heart felt like it was beating out of her chest, dizzy past few days, room spinning, exacerbated by changing position, neck and shoulder pain, losing sleep); no fever/chills and no nausea/vomiting The patient is a 63 year old female who presents to the ED with complaints of an episode of chest pain that started 2 hours ago. The patient states that her pain radiates into her jaw and left abdomen. The patient states that her heart felt like it was beating out of her chest. The patient notes that her pain was relieved after rubbing her chest. The patient states that she has been dizzy for the past few days and it intermittently looks like the room is spinning. The patient notes that the dizziness is exacerbated when changing position. The patient states that she has a headache, neck and shoulder pain, and she has been losing sleep. The patient denies fever, ear pain, ear ringing, vomiting, diarrhea, leg pain or swelling, hearing loss and urinary symptoms. Home Medications Home Medications Medication Instructions Recorded Confirmed Type Calcium 600 + D(3) 1 tab PO BID 06/21/18 06/11/19 History diclofenac sodium [Voltaren] 1 dose TOPICAL UD PRN 06/21/18 06/11/19 History duloxetine 30 mg PO Q OTHER DAY 06/21/18 06/11/19 History hydroxychloroquine [Plaquenil] 200 mg PO BID 06/21/18 06/11/19 History pantoprazole 40 mg tablet,delayed 40 mg PO HS #90 tab 01/04/19 06/11/19 Rx release triamterene 37.5 1 cap PO QAM #90 cap 01/04/19 06/11/19 Rx mg-hydrochlorothiazide 25 mg capsule meloxicam 7.5 mg tablet 15 mg PO HS tab 01/25/19 06/11/19 History sulfasalazine 500 mg tablet 1,000 gm PO BID tab 02/15/19 06/11/19 History gabapentin 200 mg PO HS 06/11/19 06/11/19 History Allergies Allergy/AdvReac Type Severity Reaction Status Date / Time rifapentine Allergy Mild CARDIAC Verified 06/11/19 21:25 ARRHYTHMIA AND RENAL FAILURE rifampin Allergy Unknown Unknown Uncoded 06/11/19 21:25 Roxicet TABS Allergy Unknown Unknown Uncoded 06/11/19 21:25 Past Med/Surg History Medical History Chronic kidney disease, stage 3 Erosive osteoarthritis Hypertension Osteomyelitis Right bundle branch block (RBBB) Spondylolysis Surgical History History of bilateral tubal ligation History of breast biopsy aspiration of cyst from left breast benign History of cholecystectomy History of colonoscopy History of dilatation and curettage History of esophagogastroduodenoscopy (EGD) History of hand surgery right finger left hand--I&D History of tooth extraction History of total abdominal hysterectomy and bilateral salpingo-oophorectomy Family History Grandmother (Maternal) Family history of diabetes mellitus Father Myocardial infarction Other No family history of adverse response to anesthesia Social History Preferred Language: Afghan Communication Ability: Effective Visual Impairment: No Limitations Subscription Crew Leader Required: No Beliefs That Will Affect Care: None Current Living Situation: Spouse Feels Safe at Home: Yes Smoking Status: Never smoker Second Hand Exposure: Yes (parents smoked) ; Hx Alcohol Use: No Hx Substance Use: No Review of Systems See HPI for pertinent positives & negatives. and A total of 10 systems reviewed and were otherwise negative Physical Exam Vital Signs Vital Signs - 24 hr 06/11/19 20:11 06/11/19 20:35 06/11/19 21:01 Temperature 36.5 C Temperature Source Oral Pulse Rate 90 82 Pulse Rate [Apical] 84 Pulse Rate from SpO2 Sensor Respiratory Rate 20 18 19 Respiratory Effort / Characteristics Non-Labored Respiratory Depth Normal Normal Blood Pressure 194/82 H 149/74 H Blood Pressure [Right Arm] 184/64 H Blood Pressure Mean 119 91 Blood Pressure Mean [Right Arm] 104 Pulse Oximetry 100 98 Oxygen Delivery Method Room Air Room Air Sepsis Recent Fever Within 48 Hours No Sepsis Action Taken by Nursing No Action Required 06/11/19 22:21 06/11/19 22:30 06/11/19 23:01 Temperature Temperature Source Pulse Rate 76 72 71 Pulse Rate [Apical] Pulse Rate from SpO2 Sensor 72 Respiratory Rate 12 18 15 Respiratory Effort / Characteristics Respiratory Depth Blood Pressure 158/67 H 133/65 168/61 H Blood Pressure [Right Arm] Blood Pressure Mean 97 102 96 Blood Pressure Mean [Right Arm] Pulse Oximetry 98 98 97 Oxygen Delivery Method Room Air Sepsis Recent Fever Within 48 Hours Sepsis Action Taken by Nursing Constitutional: Vital signs reviewed. Eyes: Pupils are equal round reactive to light. Conjunctiva are noninjected. ENT: Pharynx is clear without erythema or exudate. Mucous membranes are moist. Neck supple without meningeal signs. Respiratory: Clear to auscultation bilaterally. Breath sounds are equal elisa aterally. Cardiovascular: Regular rate and rhythm. No rubs or gallops. GI: Soft, nondistended and nontender. Bowel sounds are present. Musculoskeletal: No peripheral edema. No lower extremity tenderness. Integumentary: No cyanosis. Neurological: The patient is awake and alert. No focal deficits. No nystagmus, negative test of skew, no dysdiadochokinesis, unable to perform head impulse testing due to symptoms. Psychiatric: Normal affect. Course Course 2037: Past medical records reviewed. The patient was evaluated in room B11B. A complete history and physical exam was performed. 2142: I reevaluated the patient and she is feeling better. She is able to ambulate but she could not walk on her toes or do heel to toe. She is agreeable for admission. 2151: I discussed the patient's case with Dr. Antionette SHIELDS, Hospitalist. He will evaluate the patient for further management. Consultations Consultation #1: I discussed the patient's case with Dr. Antionette SHIELDS, Hospitalist. He will evaluate the patient for further management. Time: 21:52 Administered Medications Discontinued Medications Enoxaparin Sodium (Lovenox) Confirm Administered Dose 40 mg .ROUTE .[facility] ONE Stop: 06/12/19 00:15 Last Admin: 06/12/19 00:16 Dose: Not Given Documented by: [id number] Sodium Chloride (Nss 1000ml) 500 mls @ 999 mls/hr IV .Q31M ONE Stop: 06/11/19 21:17 Last Infusion: 06/11/19 21:48 Dose: 0 mls/hr Documented by: [id number] Admin: 06/11/19 21:14 Dose: 999 mls/hr Documented by: [id number] Magnesium Sulfate/Dextrose (Magnesium Sulfate / D5w) 1 gm in 100 mls @ 100 mls/hr IV ONE ONE Stop: 06/11/19 22:38 Last Infusion: 06/11/19 23:01 Dose: 0 mls/hr Documented by: [id number] Admin: 06/11/19 21:48 Dose: 100 mls/hr Documented by: [id number] Meclizine HCl (Antivert) 25 mg PO NOW STA Stop: 06/11/19 20:48 Last Admin: 06/11/19 21:13 Dose: 25 mg Documented by: [id number] Medical Decision Making Differential Diagnosis Differentials include BPPV, labyrinthitis, ICH, CVA, ACS. Medical Records Attestation: I reviewed the patient's medical records. The patient was seen by Cardiology in April and her pacemaker was interrogated. She had 5 brief episodes of SVT which were all less than 2 seconds in duration. Home Medications Current Medication List: was personally reviewed by me Laboratory Data Attestation: I reviewed the patient's lab results. Result diagrams: 06/11/19 20:59 06/11/19 20:59 Lab Results 06/11/19 06/11/19 06/11/19 Range/Units 20:59 20:59 20:59 WBC 6.24 (4.8-10.8) K/uL RBC 4.61 (4.2-5.4) M/uL Hgb 12.3 (12.0-16.0) g/dL Hct 38.7 (37-47) % MCV 83.9 (80-100) fL MCH 26.7 (25-34) pg MCHC 31.8 L (32-36) g/dL RDW Std Deviation 46.2 (36.4-46.3) fL RDW Coeff of Rowdy 15.1 H (11.5-14.5) % Plt Count 222 (130-400) K/uL MPV 11.5 H (7.4-10.4) fL Immature Gran % (Auto) 0.6 % Neut % (Auto) 59.8 % Lymph % (Auto) 22.6 % [place] % (Auto) 12.2 % Eos % (Auto) 4.5 % Baso % (Auto) 0.3 % Immature Gran # (Auto) 0.04 H (0.00-0.02) K/uL Neut # (Auto) 3.73 (1.4-6.5) K/uL Lymph # (Auto) 1.41 (1.2-3.4) K/uL [place] # (Auto) 0.76 H (0.11-0.59) K/uL Eos # (Auto) 0.28 (0-0.5) K/uL Baso # (Auto) 0.02 (0-0.2) K/uL PT 10.6 (9.0-12.0) Seconds INR 1.0 (0.9-1.1) APTT 24.6 (21.0-31.0) Seconds PTT Ratio 0.9 Sodium 138 (136-145) mmol/L Potassium 3.7 (3.5-5.1) mmol/L Chloride 103 (98-107) mmol/L Carbon Dioxide 31 (21-32) mmol/L Anion Gap 5.0 (3-11) BUN 22 H (7-18) mg/dl Creatinine 1.19 (0.6-1.2) mg/dl Est Cr Clr Drug Dosing 55.6 ml/min Est GFR ( Amer) 56.7 Est GFR (Non-Af Amer) 48.9 BUN/Creatinine Ratio 18.8 (10-20) Glucose 125 H (70-99) mg/dl Calcium 9.6 (8.5-10.1) mg/dl Magnesium 1.7 L (1.8-2.4) mg/dl Total Bilirubin 0.4 (0.2-1) mg/dl AST 25 (15-37) U/L ALT 29 (12-78) U/L Alkaline Phosphatase 115 (45-117) U/L Troponin I < 0.015 (0-0.045) ng/ml Total Protein 7.3 (6.4-8.2) gm/dl Albumin 3.8 (3.4-5.0) gm/dl Globulin 3.5 (2.5-4.0) gm/dl Albumin/Globulin Ratio 1.1 (0.9-2) Imaging Data Radiologist's Impression: Radiology results as stated below per my review and the radiologist's interpretation: HEAD CT NONCONTRAST CT DOSE: 537.48 mGy.cm HISTORY: vertigo eval for cva TECHNIQUE: Multiaxial CT images of the head were performed without the use of intravenous contrast. Automated exposure control was utilized for this study. A dose lowering technique was utilized adhering to the principles of ALARA. Comparison: Head CT 12/24/2018. Findings: The paranasal sinuses and mastoid air cells are clear. The calvarium and skull base are intact. The ventricles and sulci are within normal limits. There is no mass, hematoma, midline shift, or acute infarct. Impression: No acute intracranial abnormality. ACT 112: Negative or not required by law. Electronically signed by: Ho Keller M.D. 06/11/2019 9:36 PM XR chest 1V portable HISTORY: Atypical chest pain. COMPARISON: Chest 12/28/2018. FINDINGS: The lungs are clear. Cardiac silhouette is normal in size. No pleural effusions. No pneumothorax. Left-sided dual-chamber pacemaker. IMPRESSION: No acute process. ACT 112: Negative or not required by law. Electronically signed by: Ho Keller M.D. 06/11/2019 9:18 PM ECG Data Attestation: I personally reviewed and interpreted this ECG as follows: Indication: + chest pain Rate (beats per minute): 81 Rhythm: + normal sinus ECG Intervals/blocks: + Right Bundle branch block ECG ST segments: + T-wave inversions (inferiorly); no ST elevation ECG Findings: no PVCs Comparison ECG Date: from (12/27/2018) Blood Pressure Blood Pressure Findings: Elevated blood pressure Blood Pressure Disposition: further management by hospitalist KATYA Roberts I did evaluate the patient as noted above. The patient is presenting with left- sided chest pain rating to her left jaw as well as acute vertigo. IV access was established. The patient was placed on a continuous telemetry monitor. I did order and personally review the patient's 12-lead EKG as described above. She has a right bundle branch block with T wave inversions inferiorly. This is unchanged from her prior EKG from December of last year. I did order and personally reviewed the images of the patient's chest x-ray as described above. There is no acute process. I did order and review the patient's blood work as noted in the electronic medical record. CBC is unremarkable without leukocytosis or anemia. Troponin is negative. Electrolytes are unremarkable other than a mildly low magnesium of 1.7. I did treat her with IV magnesium. I did order a CT of the head. I did review the images myself as well as the radiology report as described above. There is no evidence of acute intracranial abnormality. I did treat patient with Antivert p.o. On reassessment she stated that her dizziness is improved. She was able to walk without difficulty but she could not walk heel-to-toe or on her toes. I did recommend hospitalization for further evaluation including likely MRI of the brain as well as repeat cardiac biomarkers. I did discuss case with the hospitalist and geriatric case manager. Impression & Plan Acute chest pain, Vertigo, Hypomagnesemia Discharge Plan Visit Data *Final* Discharge Date/Time: 06/12/19 00:25 Chief Complaint: Dizziness Stated Complaint: DIZZY, JAW PAIN, TIRED ED Provider: Felipe Snow Discharge Problem: Acute chest pain, Vertigo, Hypomagnesemia Patient Disposition: Admitted As Inpatient Discharge Instructions Interventions: ED Discharge Assessment Last Done: 06/12/19 00:25 The scribe's documentation has been prepared under my direction and personally reviewed by me in its entirety. I confirm that the note above accurately reflects all work, treatment, procedures, and medical decision making performed by me.
[2019-06-12 04:23] LABS: Basophils # (auto) 0.01 K/uL (0-0.2); Basophils % (auto) 0.2 %; Eosinophils # (auto) 0.27 K/uL (0-0.5); Eosinophils % (auto) 4.4 %; Hematocrit (blood only) 36.9 % (37-47); Hemoglobin 11.8 g/dL (12.0-16.0); Immature Granulocytes # (auto) 0.01 K/uL (0.00-0.02); Immature Granulocytes % (auto) 0.2 %; Lymphocytes # (auto) 1.53 K/uL (1.2-3.4); Lymphocytes % (auto) 24.8 %; Mean Corpuscular Hemoglobin 26.5 pg (25-34); Mean Corpuscular Volume 82.9 fL (80-100); Mean Platelet Volume 11.2 fL (7.4-10.4); Monocytes # (auto) 0.71 K/uL (0.11-0.59); Monocytes % (auto) 11.5 %; Neutrophils # (auto) 3.64 K/uL (1.4-6.5); Neutrophils % (auto) 58.9 %; Platelet Count 217 K/uL (130-400); RDW Standard Deviation 45.8 fL (36.4-46.3); Red Blood Count 4.45 M/uL (4.2-5.4); White Blood Count 6.17 K/uL (4.8-10.8)
[2019-06-12 04:42] LABS: Alanine Aminotransferase 29 U/L (12-78); Albumin Level 3.6 gm/dl (3.4-5.0); Aspartate Aminotransferase 21 U/L (15-37); BUN Creatinine Ratio 19.6 (10-20); Blood Urea Nitrogen 23 mg/dl (7-18); Calcium 9.4 mg/dl (8.5-10.1); Carbon Dioxide 29 mmol/L (21-32); Chloride 105 mmol/L (98-107); Creatinine Clr Calc Pharmacy 56.7 ml/min; Est GFR (African American) 58.4; Est GFR (Non-African American) 50.4; Glucose 98 mg/dl (70-99); Sodium 139 mmol/L (136-145)
[2019-06-12 04:47] LABS: Alkaline Phosphatase 110 U/L (45-117); Bilirubin,Total 0.4 mg/dl (0.2-1); Globulin 3.5 gm/dl (2.5-4.0); Phosphorus 3.7 mg/dl (2.5-4.9); Total Protein 7.1 gm/dl (6.4-8.2); Troponin I < 0.015 ng/ml (0-0.045)
--- NOTE | 2019-06-12 06:33 | Billing Data ---
Date of Service June 11, 2019 Coding Level of Care Code 41115 OBS Care - Level 3
[2019-06-12 06:50] LABS: Estimated Average Glucose 100 mg/dl; Hemoglobin A1C 5.1 % (4.5-5.6)
[2019-06-12] MEDS ORDERED: ENOXAPARIN INJ 40 MG/0.4 ML SYR SQ SCH (08:00)
[2019-06-12] MEDS ORDERED: HYDROXYCHLOROQUINE SULFATE 200 MG TAB PO SCH (09:00)
[2019-06-12] MEDS ORDERED: ASPIRIN 81 MG ECTAB PO SCH (09:00)
[2019-06-12] MEDS ORDERED: DULOXETINE HCL 30 MG CAP PO SCH (09:00)
[2019-06-12] MEDS ORDERED: CALCIUM 600MG + VIT D 400 IU TAB PO SCH (09:00)
[2019-06-12] MEDS ORDERED: sulfaSALAzine 500 MG TABLET PO SCH (09:00)
[2019-06-12] MEDS ORDERED: TRIAMTERENE/HCTZ 37.5/25MG CAP PO SCH (09:00)
--- NOTE | 2019-06-12 12:08 | Hospitalist Progress Note ---
Date of Service June 12, 2019 Assessment & Plan (1) Acute chest pain: Resolved Present on Admission?: Yes (2) Vertigo: Patient will need outpatient physical therapy twice a week. Given prescription. Continue meclizine every 6 hours 25 mg p.o. for vertigo as needed. Present on Admission?: Yes (3) Hypomagnesemia: Replenish then resolved. Present on Admission?: Yes (4) Presence of cardiac pacemaker: No issues at this time. Patient encouraged to follow-up with her energy technician. Present on Admission?: Yes (5) HTN (hypertension): Continue home medicine triamterene 37.5 mg/hydrochlorothiazide 25 mg 1 capsule p.o. every morning. Added aspirin 81 mg p.o. daily to patient regimen. Present on Admission?: Yes (6) GERD (gastroesophageal reflux disease): Continue pantoprazole 40 mg p.o. nightly. (7) CKD (chronic kidney disease), stage III: Continue monitoring and avoiding nephrotoxic agents. Present on Admission?: Yes (8) DVT prophylaxis: Lovenox 40 mg subcu every 24 hours. Present on Admission?: Yes Subjective Patient seen and examined at the bedside. He reports feeling much better. Vertigo is still mildly present. Nausea and vomiting resolved. Patient denies fever, chills, chest pain, shortness of breath, abdominal pain, frequency, urgency. Review of Systems Review of Systems: All systems reviewed & are unremarkable except as noted in HPI & below Physical Exam Constitutional: WD/WN, vitals as above cooperative and comfortable Eyes: PERRL, conjunctivae normal, anicteric sclerae ENMT: external ear and nose normal, oropharynx normal Ears: no TM abnormality Neck: normal visual inspection and trachea midline Respiratory: normal respiratory effort, lungs clear to auscultation Cardiovascular: RRR, no murmur, no edema Gastrointestinal (Abdomen): Percussion/Palpation: abdomen soft; abdomen nontender, no guarding and abdomen not rigid Musculoskeletal: Head/Neck/Chest: normocephalic and head atraumatic Extremities: strength 5/5 throughout Skin: no rashes, warm and dry Neurologic: CN's II-XI intact bilaterally, moves all extremities and awake; no focal motor deficits and not confused Cranial Nerves: PERRL and EOM intact bilaterally Psychiatric: Orientation: alert and oriented x 3 Results & Data ([facility]) Vital Signs (Past 12 Hours) Vital Signs Temp Pulse Pulse Resp BP BP BP 06/12/19 11:04 37.1 C 73 19 149/76 H 06/12/19 07:11 36.6 C 69 19 148/76 H 06/12/19 04:13 36.7 C 71 19 163/72 H 06/12/19 00:53 81 06/12/19 00:30 36.7 C 96 H 20 185/73 H 06/12/19 00:11 68 15 138/60 Pulse Ox 06/12/19 11:04 97 06/12/19 07:11 93 06/12/19 04:13 96 06/12/19 00:53 06/12/19 00:30 94 06/12/19 00:11 98 PG Care Time/CCT Total # of Minutes Spent Total Time Spent with Patient: Total time spent is greater than 50% in coordination of care (as documented) at patient's floor/unit and/or counseling patient: Coding Level of Care Code 85959 Subseq Hosp Care Lvl 3 Diagnoses Acute chest pain R07.9 Vertigo R42 Hypomagnesemia E83.42 Presence of cardiac pacemaker Z95.0 HTN (hypertension) I10 GERD (gastroesophageal reflux disease) K21.9 CKD (chronic kidney disease), stage III N18.3 DVT prophylaxis Z29.9
--- NOTE | 2019-06-12 12:42 | Electrocardiogram Report ---
Test Reason : Blood Pressure : / mmHG Vent. Rate : 081 BPM Atrial Rate : 081 BPM P-R Int : 162 ms QRS Dur : 138 ms QT Int : 448 ms P-R-T Axes : 055 080 002 degrees QTc Int : 520 ms Normal sinus rhythm Right bundle branch block T wave abnormality, consider inferior ischemia Abnormal ECG When compared with ECG of 27-DEC-2018 16:00, No significant change was found Confirmed by Steven Silva ([id number]) on 06/12/2019 12:42:21 PM Referred By: REFERRED SELF Confirmed By:Steven Silva
--- NOTE | 2019-06-12 18:58 | Discharge Summary ---
Date of Service June 12, 2019 Admission HPI Per Admitting Provider Earlene Daugherty is a 63 y/o female with past medical hx of s/p cardiac pacemaker placement, RBBB, CKD III, Erosive Osteoarthritis, Seronegative RA, HTN, HLD, GERD who presented to [facility] with complaints of Dizziness and Chest pain. She notes onset of dizziness starting Wednesday at 2am which has been persistent, worsened with head movement and eye movement especially to the right; made better by keeping completely still. She describes dizziness as the room is jumping. It is improved with Meclizine in ED. She has never had this before. No unilateral weakness, slurred speech. She does not take daily ASA. No recent medication changes. Dizziness has caused nausea without vomiting. Chest pain started this evening around 6:30pm at rest. She noted it as central and pressure. She states she had bilateral bicep numbness. She also has left preauricular pain, posterior/left sided neck pain which she assumes is from remaining completely still. She notes she had some shortness of breath with the chest pain, with both resolving. No diaphoresis or vomiting. No recent chest pains with exertion. She notes staying well hydrated and has been drinking a lot of bottled water. Principal Diagnosis none Discharge Exam Constitutional WD/WN, vitals as above cooperative and comfortable Eyes PERRL, conjunctivae normal, anicteric sclerae ENMT external ear and nose normal, oropharynx normal Ears: no TM abnormality Neck normal visual inspection and trachea midline Respiratory normal respiratory effort, lungs clear to auscultation Cardiovascular RRR, no murmur, no edema Gastrointestinal (Abdomen) Percussion/Palpation: abdomen soft; abdomen nontender, no guarding and abdomen not rigid Musculoskeletal Head/Neck/Chest: normocephalic and head atraumatic Extremities: strength 5/5 throughout Skin no rashes, warm and dry Neurologic CN's II-XI intact bilaterally, moves all extremities and awake; no focal motor deficits and not confused Cranial Nerves: PERRL and EOM intact bilaterally Psychiatric Orientation: alert and oriented x 3 Discharge Data Allergies Allergy/AdvReac Type Severity Reaction Status Date / Time rifapentine Allergy Mild CARDIAC Verified 06/11/19 21:25 ARRHYTHMIA AND RENAL FAILURE rifampin Allergy Unknown Unknown Uncoded 06/11/19 21:25 Roxicet TABS Allergy Unknown Unknown Uncoded 06/11/19 21:25 Consultations 06/11/19 21:44 ED Decision to Admit Stat Ordered Studies 06/11/19 20:47 CT head/brain wo con Stat Hospital Course (1) Acute chest pain: Resolved (2) Vertigo: Patient will need outpatient physical therapy twice a week. Given presc ription. Continue meclizine every 6 hours 25 mg p.o. for vertigo as needed. (3) Hypomagnesemia: Replenish then resolved. (4) Presence of cardiac pacemaker: No issues at this time. 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 (5) HTN (hypertension): Continue home medicine triamterene 37.5 mg/hydrochlorothiazide 25 mg 1 capsule p.o. every morning. Added aspirin 81 mg p.o. daily to patient regimen. (6) GERD (gastroesophageal reflux disease): Continue pantoprazole 40 mg p.o. nightly. (7) CKD (chronic kidney disease), stage III: Continue monitoring and avoiding nephrotoxic agents. (8) DVT prophylaxis: Lovenox 40 mg subcu every 24 hours. Total Time Total Time Spent Total Time Spent (In Minutes): over 30 min Discharge Plan Discharge Items Patient Disposition: Home - Self-Care Reason For Visit: CHEST PAIN, VERTIGO Discharge Diagnosis: vestibular neuritis Activity: As commented below Lifting: Gradually increase as tolerated Non-emergency contact: Primary Care Provider Call non-emergency contact if: you have any medication questions, your symptoms worsen, your pain is not controlled, your pain is worsening, your pain is unusual for you, your pain is concerning for you, you have a fever and your temperature is above 101 Follow-up/Referrals: Luc King MD [Primary Care Provider] - Diet: Heart Healthy Addtl Attending Provider Instructions: Please follow up with PCP within 7 days. Follow up with Outpatient physical therapy two ties a week for vestibular neuritis. Continue Meclizine 25 mg PO Q6h as needed for vertigo. Please check your CBC within 7 days with your PCP. Your h emoglobin is slightly decreased. Would recommend to have colonoscopy as an outpatient. Please obtain the referral from your PCP.Also take one baby aspirin daily. Pending Studies at Discharge: Yes Stand-Alone Forms: My [employer], Smoking Cessation Medications and DC Order Prescriptions: New nitroglycerin [Nitrostat] 0.4 mg Tablet, Sublingual 0.4 mg sublingual UD PRN (Reason: chest pain) Qty: 100 RF: 0 meclizine 25 mg Tablet 25 mg PO Q6H PRN (Reason: dizziness or vertigo) Qty: 50 RF: 0 aspirin 81 mg tablet,delayed release (DR/EC) 81 mg PO DAILY Qty: 30 RF: 0 Continued pantoprazole 40 mg tablet,delayed release (DR/EC) 40 mg PO HS Qty: 90 RF: 3 triamterene-hydrochlorothiazid 37.5-25 mg capsule 1 cap PO QAM Qty: 90 RF: 3 meloxicam 7.5 mg tablet 15 mg PO HS RF: 0 sulfasalazine 500 mg tablet 1,000 gm PO BID RF: 0 hydroxychloroquine [Plaquenil] 200 mg Tablet 200 mg PO BID RF: 0 duloxetine 30 mg Capsule,Delayed Release(Dr/Ec) 30 mg PO Q OTHER DAY RF: 0 Calcium 600 + D(3) 600 mg calcium- 200 unit Capsule 1 tab PO BID RF: 0 diclofenac sodium [Voltaren] 1 % Gel 1 dose TOPICAL UD PRN (Reason: Pain) RF: 0 gabapentin 100 mg capsule 200 mg PO HS RF: 0 Discharge Orders: Discharge Order (Routine); Ordered 06/12/19 Ordered By: Rosi Perez/Other Patient Handouts: ED Vertigo Unspecified, Meclizine Hydrochloride Oral tablet Admission Data Admit Date/Time: 06/11/19 23:24 Attending Provider: Rosi Ryan Admit Provider: Ramin Claudio Primary Care Provider: Luc King Other Providers: Dwight Coppola Other Interventions: Discharge Summary Assessment (RN) Last Done: 06/12/19 14:37 DC Date/Time DO NOT enter until pt leaves facility: 06/12/19 15:09 Coding Level of Care Code D/C Day Management >30 mins Diagnoses Acute chest pain R07.9 Vertigo R42 Hypomagnesemia E83.42 Presence of cardiac pacemaker Z95.0 HTN (hypertension) I10 GERD (gastroesophageal reflux disease) K21.9 CKD (chronic kidney disease), stage III N18.3 DVT prophylaxis Z29.9
[2019-06-12] MEDS ORDERED: MELOXICAM 7.5 MG TAB PO SCH (21:00)
[2019-06-12] MEDS ORDERED: PANTOprazole 40 MG TAB PO SCH (21:00)
[2019-06-12] MEDS ORDERED: GABAPENTIN 100 MG CAP PO SCH (21:00)
== END 2019-06-12 15:09 | disposition home or self-care (01) ==
LOC: ED 20:06 → 2S 20:06 → SUATTDRO 23:24 → 2S 06-12 00:25

== ENCOUNTER 2021-09-05 16:33 | Inpatient (IN) ==
[2021-09-05] MEDS ORDERED: SODIUM CHLORIDE 0.9% 1000ML 1,000 ML IV SCH (17:00)
[2021-09-05] MEDS ORDERED: PIPERACILLIN/TAZOBACTAM 4.5 GM/120 ML BAG IV ONE (17:08)
[2021-09-05] MEDS ORDERED: PIPERACILL/TAZOBAC CONSULT ACTIVE PRN ×2 (17:08→23:42)
[2021-09-05 17:24] LABS: Albumin Globulin Ratio 1.3 (0.9-2); Albumin Level 3.6 gm/dl (3.4-5.0); Bilirubin,Total 0.9 mg/dl (0.2-1.0); Calcium 8.7 mg/dl (8.5-10.1); Creatinine Clr Calc Pharmacy 49.3 ml/min; Est GFR (African American) 46.3 ml/min; Globulin 2.8 gm/dl (2.5-4.0); Magnesium 1.7 mg/dl (1.7-2.4); Potassium 2.9 mmol/L (3.5-5.1); Total Protein 6.4 gm/dl (6.0-8.3)
--- NOTE | 2021-09-05 17:31 | XRay Report ---
SINGLE VIEW CHEST CLINICAL HISTORY: Generalized weakness. FINDINGS: An AP, portable, upright chest radiograph is compared to study dated 07/10/2021 and correlate d with chest CT dated 10/18/2020. A 2-lead cardiac pacemaker is unchanged in position. The heart is en larged noting atherosclerotic calcification of the thoracic aorta. The pulmonary vasculature is nonco ngested. Chronic residual thickening and elevation of the right hemidiaphragm is similar to previous. There is mild bibasilar scarring/atelectasis. The lungs and pleural spaces are otherwise clear. No p neumothorax is seen. The skeletal structures are osteopenic. The bony thorax is grossly intact. Bridgette cystectomy clips are seen in the right upper quadrant. IMPRESSION: 1. Cardiomegaly and cardiac pacemaker with no radiographic evidence of congestive failure. 2. No airspace consolidation or large pleural effusion is identified. ACT 112: Negative or not required by law. Electronically signed by: Leighton Morelos M.D. 09/05/2021 5:30 PM
[2021-09-05 17:33] LABS: Basophils # (auto) 0.02 K/uL (0-0.2); Basophils % (auto) 0.1 %; Hemoglobin 11.8 g/dL (12.0-16.0); Immature Granulocytes # (auto) 0.05 K/uL (0.00-0.02); Immature Granulocytes % (auto) 0.4 %; Lymphocytes # (auto) 1.12 K/uL (1.2-3.4); Lymphocytes % (auto) 8.2 %; Mean Corpuscular Hemoglobin 30.7 pg (25-34); Mean Corpuscular Hgb Conc 33.7 g/dL (32-36); Mean Corpuscular Volume 91.1 fL (80-100); Monocytes # (auto) 1.97 K/uL (0.11-0.59); Monocytes % (auto) 14.4 %; Neutrophils # (auto) 10.49 K/uL (1.4-6.5); Neutrophils % (auto) 76.9 %; Platelet Count 161 K/uL (130-400); RDW Coefficient of Variation 13.6 % (11.5-14.5); RDW Standard Deviation 45.3 fL (36.4-46.3); Red Blood Count 3.84 M/uL (4.2-5.4); White Blood Count 13.65 K/uL (4.8-10.8)
[2021-09-05 17:39] LABS: Thyroid Stimulating Hormone 0.266 uIu/ml (0.300-4.500)
[2021-09-05 18:22] LABS: Appearance Urine Cloudy (Clear); Bacteria Urine Automated 4+ (Negative); Bilirubin Urine Negative (Negative); Blood Urine 3+ (Negative); Color Urine Dark Yellow; Glucose Urine UA Negative (Negative); Influenza A virus by PCR Negative (Neg); Influenza B virus by PCR Negative (Neg); Ketones Urine Negative (Negative); Leukocyte Esterase Urine Trace (Negative); Nitrite Urine Positive (Negative); Protein Urine 2+ (Negative); RSV by PCR Negative (Neg); SARS CoV2 RNA(COVID-19) InHosp NEGATIVE (Negative); Specific Gravity Urine 1.019 (1.000-1.030); Urobilinogen Urine Negative (Negative); pH Urine 5.5 (4.5-7.5)
[2021-09-05 18:22] LABS: T4 Free Thyroxine 1.39 ng/dl (0.61-1.60)
[2021-09-05 19:18] LABS: RBC Urine Automated >30 /hpf (0-4)
[2021-09-05] MEDS: POTASSIUM CHLORIDE / WTR 10 MEQ/100 ML PLCT IV SCH ×2 (19:45→21:37)
[2021-09-05] MEDS ORDERED: OPTIRAY 320 100ml IV ONE (20:43)
[2021-09-05] MEDS ORDERED: MAGNESIUM SULFATE / D5W 1 GM/100 ML BAG IV ONE (21:22)
--- NOTE | 2021-09-05 21:26 | History & Physical Report ---
Date of Service September 05, 2021 Assessment & Plan (1) Pyelonephritis of right kidney: Plan: Right pyelonephritis/urine tract infection/sepsis- Follow urine culture and sensitivity results Empiric Zosyn 4.5 g IV every 8 hours Acetaminophen 650 mg p.o. every 6 hours as needed mild pain or fever Zofran 4 mg IV every 6 hours as needed Lactated Ringer's at 80 mils per hour (2) Elevated troponin I level: Plan: Elevated troponin I level/history of cardiac pacemaker/hypertension- The patient will be admitted to telemetry for serial cardiac enzymes, serial EKG's, cardiac rhythm monitoring and a 2-D echocardiogram with Dopplers. Highly sensitive troponin initially 68.2, repeat 67.2 Likely type II, supply demand mismatch Holding triamterene/HCTZ Continue losartan 100 mg every morning and amlodipine 5 mg every morning (3) Status post placement of other cardiac pacemaker: Plan: See above (4) HTN (hypertension): Plan: See above (5) Acute kidney injury superimposed on CKD: Plan: ROSITA on CKD stage III Creatinine 1.39 upon admission, with base 1.19 Hold triamterene/HCTZ Placing on LR Recheck laboratories in the morning (6) Restless leg syndrome: Plan: RLS/PLMD continue ropinirole 2 mg at bedtime (7) GERD (gastroesophageal reflux disease): Plan: Continue pantoprazole (8) Seronegative arthritis: Plan: Hydroxychloroquine has been on hold (9) CKD (chronic kidney disease), stage III: Plan: See above (10) Idiopathic peripheral neuropathy: Plan: Continue gabapentin 100 mg p.o. 3 times daily and duloxetine 60 mg daily (11) PLMD (periodic limb movement disorder): Plan: See above (12) Hypothyroidism: Plan: Continue levothyroxine 100 mcg daily TSH 0.266. No change in dose at this time, can follow-up in the outpatient s etting (13) Memory deficits: Plan: Follow clinically, appears to be at baseline and functioning well History of Present Illness Chief Complaint: The patient presents to the emergency department with generalized weakness, fevers, chills and shakes worsening over the past 3 days Primary Care Provider: Michael King MD The patient is a 65-year-old female with a past medical history including hypertension, seronegative arthritis, restless leg syndrome, hypertension, hypercholesterolemia, right bundle branch block, cardiac pacemaker presents, CKD stage III, superior mesenteric artery stenosis, left renal artery stenosis, idiopathic peripheral neuropathy, memory deficits, essential tremor, PLMD, chronic venous insufficiency and lumbar radiculopathy. She presents to the emergency department with 3 days of worsening generalized weakness, fevers, chills and shakes. She denies any recent travels or sick exposures. Allergies Allergy/AdvReac Type Severity Reaction Status Date / Time rifapentine Allergy Intermediate CARDIAC Verified 09/05/21 20:07 ARRHYTHMIA AND RENAL FAILURE rifampin AdvReac cardiac Verified 09/05/21 20:07 arrhymia + renal failure Home Medications Medication Instructions Recorded Confirmed Type calcium carbonate 600 mg-vitamin 1 tab PO BID 06/21/18 09/05/21 History D3 5 mcg (200 unit) capsule (Calcium 600 + D(3)) hydroxychloroquine 200 mg tablet 200 mg PO .HOLD 06/21/18 09/05/21 History (Plaquenil) duloxetine 60 mg capsule,delayed 60 mg PO QAM 06/24/20 09/05/21 History release (Cymbalta) amlodipine 5 mg tablet 5 mg PO QAM 06/19/21 09/05/21 History aspirin 81 mg tablet,delayed 81 mg PO QPM 06/19/21 09/05/21 History release levothyroxine 100 mcg capsule 100 mcg PO DAILY 06/19/21 09/05/21 History losartan 100 mg tablet 100 mg PO QAM 06/19/21 09/05/21 History triamterene 75 1 tab PO QAM #90 tab 06/20/21 09/05/21 Rx mg-hydrochlorothiazide 50 mg tablet B-complex with vitamin C 1 cap PO DAILY 07/09/21 09/05/21 History ascorbate calcium (vitamin C) 500 500 mg PO DAILY 07/09/21 09/05/21 History mg tablet ferrous sulfate 325 mg (65 mg 325 mg PO DAILY 07/09/21 09/05/21 History iron) tablet (Feosol) lactobacillus combination no.4 3 3,000 mmu cells PO PM 07/09/21 09/05/21 History billion cell capsule (Probiotic) digestive enzymes 1 cap PO TID 07/10/21 09/05/21 History docusate sodium 100 mg capsule 100 mg PO PM 07/10/21 09/05/21 History (Dulcolax Stool Softener (docusate)) magnesium 250 mg tablet 250 mg PO DAILY 07/10/21 09/05/21 History pantoprazole 40 mg tablet,delayed 40 mg PO DAILY 07/10/21 09/05/21 History release ropinirole 1 mg tablet 2 mg PO HS 07/10/21 09/05/21 History gabapentin 100 mg capsule 100 mg PO TID #90 cap 08/01/21 09/05/21 Rx Past Med/Surg History Medical History (Updated 09/06/21 @ 03:51 by Meliton Moore MD) Essential tremor GERD (gastroesophageal reflux disease) History of COVID-26 JULY 2020>SYMPTOMS MILD (FEELING BETTER) Hx of kidney disease WNL CURRENLTY/WAS STAGE 3 Hypercholesterolemia Hypertension Hypothyroidism Interdigital neuroma of foot HX FOOT INJECTIONS *DONE UNDER ANESTHESIA Myopathy Neuropathy Pacemaker INSERTED 2018/recurrent syncope secondary to symptomatic bradycardia Paroxysmal SVT (supraventricular tachycardia) No recent reoccurrences per patient in recent cardio note (06/20/21) Restless legs syndrome Rheumatoid arthritis SERUM NEGATIVE Right bundle branch block (RBBB) FOLLOWS WITH DR. FERMIN Sleep apnea CPAP Spinal stenosis of lumbar region Spondylolysis Vascular disease Renal artery stenosis, celiac/SMA stenosis- no intervention felt necessary per 02/05/21 vascular note Surgical History (Updated 07/21/21 @ 09:33 by Solo Parada DO, FACS) Encounter for biopsy (07/09/21) Left Thigh Muscle Biopsy - Solo Parada DO, FACS 07/09/2021 History of bilateral tubal ligation History of breast biopsy aspiration of cyst from left breast benign History of cholecystectomy History of colonoscopy History of dilatation and curettage History of esophagogastroduodenoscopy (EGD) History of hand surgery right finger left hand--I&D History of tooth extraction History of total abdominal hysterectomy and bilateral salpingo-oophorectomy Family History Grandmother (Maternal) Family history of diabetes mellitus Father Myocardial infarction Lung cancer Hypertension Mother Acute myocardial infarction Hypertension Other No family history of adverse response to anesthesia Denies family history of Ovarian cancer Breast cancer Colorectal cancer Social History (Updated 08/13/21 @ 14:33 by Melissa Durand MA) Smoking Status: Never smoker Second Hand Exposure: Yes (parents smoked); Hx Alcohol Use: No Hx Substance Use: No Preferred Language: Tam[place] Communication Ability: Effective Visual Impairment: No Limitations Power Switchboard Operator Required: No Beliefs That Will Affect Care: None marital status: Current Living Situation: Spouse Current Living Situation Comment: lives with current occupational status: employed and retired How many Children do You have: 2 Other Information That Helps Us Care for You: No Feels Safe at Home: Yes Safety Concerns: Feels Safe At This Time caffeine: Yes during the past year weight has: increased > 10 lbs Dental Care, Regularly: Yes Physical Activity Frequency: Daily Seatbelt Use: always Assistive Devices: CPAP and Glasses Review of Systems Review of Systems: The patient denies chest pain, palpitations, cough, lower extremity swelling, sore throat, nausea, vomiting, diarrhea , constipation, abdominal pain, pelvic pain, blood in urine or stool, dysuria, urinary frequency or urgency, loss of consciousness, rash, abnormal bruising or bleeding, imbalance, focal weakness, numbness or tingling in arms or legs, back or neck pain, or night sweats. The review of systems is otherwise negative other than for that already noted above, and at least 10 systems have been reviewed. Physical Exam Constitutional: The patient is awake, alert and oriented 3, well developed and well nourished, normocephalic and atraumatic, initially seen walking unsteadily from the bathroom. Later seen lying in bed with rigors. HEENT--PERRL, EOMI, mucous membranes and oropharynx dry. Neck--supple. No JVD. No bruits. Thyroid normal, trachea midline, no adenopathy. Heart--normal S1 and S2. No murmurs, rubs or gallops. Lungs--clear bilaterally, no respiratory distress, no accessory muscle use. Abdomen--normal bowel sounds and soft. Nontender. Nondistended, no hernias or masses, no organomegaly. Extremities--no cyanosis or clubbing. No edema. Dermatologic--normal skin turgor, normal color, no abnormal lymph nodes, no rash. Neurologic--cranial nerves II through XII grossly intact. Rheumatologic--normal range of motion. Psychiatric--normal affect. Results & Data Results & Data ([facility]) Vital Signs (Past 12 Hours) Vital Signs Temp Pulse Pulse Resp BP BP Pulse Ox 04/29/22 20:00 38.3 C H 95 H 18 164/69 H 96 09/05/21 18:07 37.3 C 75 19 139/75 95 09/05/21 16:51 39.4 C H 87 85 19 153/53 H 153/53 H 95 Laboratory Results Laboratory Results WBC 13.65 K/uL (4.8-10.8) H 09/05/21 16:50 RBC 3.84 M/uL (4.2-5.4) L 09/05/21 16:50 Hgb 11.8 g/dL (12.0-16.0) L 09/05/21 16:50 Hct 35.0 % (37-47) L 09/05/21 16:50 MCV 91.1 fL (80-100) 09/05/21 16:50 MCH 30.7 pg (25-34) 09/05/21 16:50 MCHC 33.7 g/dL (32-36) 09/05/21 16:50 RDW Std Deviation 45.3 fL (36.4-46.3) 09/05/21 16:50 RDW Coeff of Rowdy 13.6 % (11.5-14.5) 09/05/21 16:50 Plt Count 161 K/uL (130-400) 09/05/21 16:50 MPV 12.0 fL (7.4-10.4) H 09/05/21 16:50 Immature Gran % (Auto) 0.4 % 09/05/21 16:50 Neut % (Auto) 76.9 % 09/05/21 16:50 Lymph % (Auto) 8.2 % 09/05/21 16:50 Blount % (Auto) 14.4 % 09/05/21 16:50 Eos % (Auto) 0.0 % 09/05/21 16:50 Baso % (Auto) 0.1 % 09/05/21 16:50 Neut # (Auto) 10.49 K/uL (1.4-6.5) H 09/05/21 16:50 Lymph # (Auto) 1.12 K/uL (1.2-3.4) L 09/05/21 16:50 Blount # (Auto) 1.97 K/uL (0.11-0.59) H 09/05/21 16:50 Eos # (Auto) 0.00 K/uL (0-0.5) 09/05/21 16:50 Baso # (Auto) 0.02 K/uL (0-0.2) 09/05/21 16:50 Immature Gran # (Auto) 0.05 K/uL (0.00-0.02) H 09/05/21 16:50 Sodium 135 mmol/L (136-145) L 09/05/21 16:50 Potassium 2.9 mmol/L (3.5-5.1) L 09/05/21 16:50 Chloride 98 mmol/L (98-107) 09/05/21 16:50 Carbon Dioxide 27 mmol/L (21-32) 09/05/21 16:50 Anion Gap 10 (3-11) 09/05/21 16:50 BUN 32 mg/dl (6-23) H 09/05/21 16:50 Creatinine 1.39 mg/dl (0.6-1.2) H 09/05/21 16:50 Est Cr Clr Drug Dosing 49.3 ml/min 09/05/21 16:50 Est GFR ( Amer) 46.3 ml/min 09/05/21 16:50 Est GFR (Non-Af Amer) 40.0 ml/min 09/05/21 16:50 BUN/Creatinine Ratio 23.0 (10-20) H 09/05/21 16:50 Glucose 117 mg/dl (70-99(Fasting)) H 09/05/21 16:50 Lactate 0.9 mmol/L (0.4-2.0) 09/05/21 17:51 Calcium 8.7 mg/dl (8.5-10.1) 09/05/21 16:50 Magnesium 1.7 mg/dl (1.7-2.4) 09/05/21 16:50 Total Bilirubin 0.9 mg/dl (0.2-1.0) 09/05/21 16:50 AST 20 U/L (13-39) 09/05/21 16:50 ALT 20 U/L (7-52) 09/05/21 16:50 Alkaline Phosphatase 53 U/L (34-104) 09/05/21 16:50 Troponin I High Sens 67.2 pg/ml (0-14) H* 09/05/21 19:10 Total Protein 6.4 gm/dl (6.0-8.3) 09/05/21 16:50 Albumin 3.6 gm/dl (3.4-5.0) 09/05/21 16:50 Globulin 2.8 gm/dl (2.5-4.0) 09/05/21 16:50 Albumin/Globulin Ratio 1.3 (0.9-2) 09/05/21 16:50 Procalcitonin 3.32 ng/ml (0-0.5) H 09/05/21 17:51 TSH 0.266 uIu/ml (0.300-4.500) L 09/05/21 16:50 Free T4 1.39 ng/dl (0.61-1.60) 09/05/21 16:50 Urine Color Dark Yellow 09/05/21 17:23 Urine Appearance Cloudy (Clear) A 09/05/21 17:23 Urine pH 5.5 (4.5-7.5) 09/05/21 17:23 Ur Specific [place] 1.019 (1.000-1.030) 09/05/21 17:23 Urine Protein 2+ (Negative) H 09/05/21 17:23 Urine Glucose (UA) Negative (Negative) 09/05/21 17: Urine Ketones Negative (Negative) 09/05/21 17:23 Urine Blood 3+ (Negative) H 09/05/21 17:23 Urine Nitrite Positive (Negative) A 09/05/21 17:23 Urine Bilirubin Negative (Negative) 09/05/21 17:23 Urine Urobilinogen Negative (Negative) 09/05/21 17:23 Ur Leukocyte Esterase Trace (Negative) H 09/05/21 17:23 Urine WBC (Auto) 10-30 /hpf (0-5) H 09/05/21 17:23 Urine RBC (Auto) >30 /hpf (0-4) H 09/05/21 17:23 U Hyaline Cast (Auto) 1-5 /lpf (0-5) 09/05/21 17:23 U Epithel Cells (Auto) 10-20 /lpf (0-5) H 09/05/21 17:23 Urine Bacteria (Auto) 4+ (Negative) H 09/05/21 17:23 Granular Casts 1-5 /lpf (0) H 09/05/21 17:23 Urine Yeast Not Reportable 09/05/21 17:23 SARS-CoV-2 (PCR) NEGATIVE (Negative) 09/05/21 17:23 Influenza Type A (PCR) Negative (Neg) 09/05/21 17:23 Influenza Type B (PCR) Negative (Neg) 09/05/21 17:23 RSV (RT-PCR) Negative (Neg) 09/05/21 17:23 Impressions Chest X-Ray 09/05/21 16:48 SINGLE VIEW CHEST CLINICAL HISTORY: Generalized weakness. FINDINGS: An AP, portable, upright chest radiograph is compared to study dated 07/10/2021 and correlated with chest CT dated 10/18/2020. A 2-lead cardiac pacemaker is unchanged in position. The heart is enlarged noting atherosclerotic calcification of the thoracic aorta. The pulmonary vasculature is noncongested. Chronic residual thickening and elevation of the right hemidiaphragm is similar to previous. There is mild bibasilar scarring/atelectasis. The lungs and pleural spaces are otherwise clear. No pneumothorax is seen. The skeletal structures are osteopenic. The bony thorax is grossly intact. Cholecystectomy clips are seen in the right upper quadrant. IMPRESSION: 1. Cardiomegaly and cardiac pacemaker with no radiographic evidence of congestive failure. 2. No airspace consolidation or large pleural effusion is identified. ACT 112: Negative or not required by law. Electronically signed by: Leighton Morelos M.D. 09/05/2021 5:30 PM Abdomen/Pelvis CT 09/05/21 20:18 CT SCAN OF THE ABDOMEN AND PELVIS WITH IV CONTRAST CLINICAL HISTORY: Hematuria. Urinary tract infection. COMPARISON STUDY: Abdominal CT dated 10/09/2020. TECHNIQUE: Following the IV administration of 95 cc of Optiray 320, CT scan of the abdomen and pelvis is performed from the lung bases to the proximal femora. Images are reviewed in the axial, sagittal, and coronal planes. IV contrast was administered without complication. A dose lowering technique was utilized adher ing to the principles of ALARA. CT DOSE: 1242.21 mGy.cm FINDINGS: Lung bases: The heart is normal in size and without pericardial effusion. Pacemaker leads are noted. There are punctate calcified granulomas. The lung bases are otherwise clear. Liver: The contrast-enhanced liver is normal in size, contour, and attenuation. There is mild intrahepatic biliary ductal dilatation. The hepatic veins and portal veins are patent. Gallbladder: Surgically absent noting clips in the gallbladder fossa. Spleen: Normal in size and attenuation. Pancreas: Unremarkable. Adrenal glands: Unremarkable. Kidneys: The contrast enhanced kidneys are normal in size and without hydronephrosis. There is heterogeneous enhancement of the right kidney with a striated nephrogram.. There is right-sided perinephric stranding, with urothelial thickening and enhancement seen involving the right renal pelvis and the right ureter. The left kidney enhances homogeneously. There is a 5 mm nonobstructing left renal calculus. Abdominal vasculature: The abdominal aorta is normal in course and caliber noting mild atherosclerotic calcification. Bowel: There is mild colonic diverticulosis without CT evidence of acute diverticulitis. No bowel obstruction is identified. [id number] fecal retention is seen throughout the colon. The appendix is well-visualized and normal. Peritoneum: There is no intraperitoneal free air or abdominal ascites. There is a fat-containing umbilical hernia. Lymphadenopathy: None. Pelvic viscera: The bladder wall appears mildly thickened. The uterus is surgically absent. No adnexal lesion is seen. Skeletal structures: The skeletal structures are osteopenic. There is grade 1 anterolisthesis and advanced disc space narrowing at L4-L5 with associated endplate sclerosis. No lytic or blastic lesions are seen. IMPRESSION: 1. Findings suggest cystitis with ascending urinary tract infection/pyelonephritis on the right. Correlate with clinical findings and urinalysis. 2. Nonobstructing left renal calculus. 3. Mild colonic diverticulosis without CT evidence of acute diverticulitis. 4. Additional findings as above. ACT 112: Negative or not required by law. Electronically signed by: Leighton Morelos M.D. 09/05/2021 9:25 PM Code Status & VTE Plan Code Status Full code VTE Prophylaxis Plan VTE Prophylaxis will be ordered: Yes PG Care Time/CCT Total # of Minutes Spent Total Time Spent with Patient: Total time spent is greater than 50% in coordination of care (as documented) at patient's floor/unit and/or counseling patient: Coding Level of Care Code 36530 Initial Inpt Care Lvl 3 Diagnoses Pyelonephritis of right kidney N12 Restless leg syndrome G25.81 Seronegative arthritis M13.80 Status post placement of other cardiac pacemaker Z95.0 HTN (hypertension) I10 GERD (gastroesophageal reflux disease) K21.9 CKD (chronic kidney disease), stage III N18.3 Hypothyroidism E03.9 Idiopathic peripheral neuropathy G60.9 Memory deficits R41.3 PLMD (periodic limb movement disorder) G47.61 Acute kidney injury superimposed on CKD N17.9; N18.9 Elevated troponin I level R77.8
--- NOTE | 2021-09-05 21:28 | CT Scan Report ---
CT SCAN OF THE ABDOMEN AND PELVIS WITH IV CONTRAST CLINICAL HISTORY: Hematuria. Urinary tract infection. COMPARISON STUDY: Abdominal CT dated 10/09/2020. TECHNIQUE: Following the IV administration of 95 cc of Optiray 320, CT scan of the abdomen and pelvi s is performed from the lung bases to the proximal femora. Images are reviewed in the axial, sagittal , and coronal planes. IV contrast was administered without complication. A dose lowering technique wa s utilized adhering to the principles of ALARA. CT DOSE: 1242.21 mGy.cm FINDINGS: Lung bases: The heart is normal in size and without pericardial effusion. Pacemaker leads are noted. There are punctate calcified granulomas. The lung bases are otherwise clear. Liver: The contrast-enhanced liver is normal in size, contour, and attenuation. There is mild intrahe patic biliary ductal dilatation. The hepatic veins and portal veins are patent. Gallbladder: Surgically absent noting clips in the gallbladder fossa. Spleen: Normal in size and attenuation. Pancreas: Unremarkable. Adrenal glands: Unremarkable. Kidneys: The contrast enhanced kidneys are normal in size and without hydronephrosis. There is hetero geneous enhancement of the right kidney with a striated nephrogram.. There is right-sided perinephric stranding, with urothelial thickening and enhancement seen involving the right renal pelvis and the right ureter. The left kidney enhances homogeneously. There is a 5 mm nonobstructing left renal calcu erica. Abdominal vasculature: The abdominal aorta is normal in course and caliber noting mild atheroscleroti c calcification. Bowel: There is mild colonic diverticulosis without CT evidence of acute diverticulitis. No bowel obs truction is identified. [id number] fecal retention is seen throughout the colon. The appendix i s well-visualized and normal. Peritoneum: There is no intraperitoneal free air or abdominal ascites. There is a fat-containing umbi lical hernia. Lymphadenopathy: None. Pelvic viscera: The bladder wall appears mildly thickened. The uterus is surgically absent. No adnexa l lesion is seen. Skeletal structures: The skeletal structures are osteopenic. There is grade 1 anterolisthesis and adv anced disc space narrowing at L4-L5 with associated endplate sclerosis. No lytic or blastic lesions a re seen. IMPRESSION: 1. Findings suggest cystitis with ascending urinary tract infection/pyelonephritis on the right. Blanca elate with clinical findings and urinalysis. 2. Nonobstructing left renal calculus. 3. Mild colonic diverticulosis without CT evidence of acute diverticulitis. 4. Additional findings as above. ACT 112: Negative or not required by law. Electronically signed by: Leighton Morelos M.D. 09/05/2021 9:25 PM
[2021-09-05] MEDS ORDERED: ACETAMINOPHEN 325 MG TAB PO STA ×2 (22:03→23:02)
[2021-09-05] MEDS ORDERED: ONDANSETRON INJ 2 MG/ML 2 ML VIAL IV PRN (23:42)
[2021-09-05] MEDS ORDERED: NITROGLYCERIN SL 0.4 MG/TAB TAB SL PRN (23:42)
[2021-09-06] MEDS: LACTATED RINGER'S 1,000 ML IV SCH ×3 (00:26→20:27)
[2021-09-06] MEDS: HEPARIN SOD 5,000 UNIT/0.5 ML VIAL SQ SCH ×4 (00:29→20:15)
[2021-09-06] MEDS: PIPERACILLIN/TAZOBACTAM 4.5 GM in DEXTROSE 5% 100 ML IV SCH ×4 (00:56→23:42)
[2021-09-06] MEDS ORDERED: rOPINIRole HCL 2 MG TABLET PO STA (01:45)
[2021-09-06 03:51] LABS: Hematocrit (blood only) 33.4 % (37-47); Hemoglobin 11.2 g/dL (12.0-16.0); Mean Corpuscular Hemoglobin 29.9 pg (25-34); Mean Corpuscular Hgb Conc 33.5 g/dL (32-36); Mean Corpuscular Volume 89.3 fL (80-100); Mean Platelet Volume 11.1 fL (7.4-10.4); Platelet Count 142 K/uL (130-400); RDW Coefficient of Variation 13.3 % (11.5-14.5); RDW Standard Deviation 44.2 fL (36.4-46.3); Red Blood Count 3.74 M/uL (4.2-5.4); White Blood Count 11.81 K/uL (4.8-10.8)
[2021-09-06 04:10] LABS: Basophils # (auto) 0.02 K/uL (0-0.2); Basophils % (auto) 0.2 %; Dohle Bodies 1+; Eosinophils # (auto) 0.01 K/uL (0-0.5); Eosinophils % (auto) 0.1 %; Immature Granulocytes # (auto) 0.02 K/uL (0.00-0.02); Immature Granulocytes % (auto) 0.2 %; Lymphocytes # (auto) 1.05 K/uL (1.2-3.4); Lymphocytes % (auto) 8.9 %; Monocytes # (auto) 1.55 K/uL (0.11-0.59); Monocytes % (auto) 13.1 %; Neutrophils # (auto) 9.16 K/uL (1.4-6.5); Neutrophils % (auto) 77.5 %
[2021-09-06 04:29] LABS: Albumin Level 3.3 gm/dl (3.4-5.0); BUN Creatinine Ratio 20.4 (10-20); Calcium 8.5 mg/dl (8.5-10.1); Creatinine Clr Calc Pharmacy 45.1 ml/min; Est GFR (African American) 41.6 ml/min; Est GFR (Non-African American) 35.9 ml/min; Magnesium 2.2 mg/dl (1.7-2.4); Phosphorus 2.7 mg/dl (2.5-4.9); Potassium 3.5 mmol/L (3.5-5.1)
[2021-09-06] MEDS: LEVOTHYROXINE SODIUM 100 MCG TABLET PO SCH (06:00)
[2021-09-06] MEDS: ONDANSETRON INJ 2 MG/ML 2 ML VIAL IV PRN (07:21)
[2021-09-06] MEDS ORDERED: LACTATED RINGER'S 500 ML IV ONE (07:34)
[2021-09-06] MEDS: PANTOprazole 40 MG TAB PO SCH (08:58)
[2021-09-06] MEDS: MAGNESIUM OXIDE 400 MG TAB PO SCH (08:58)
[2021-09-06] MEDS: GABAPENTIN 100 MG CAP PO SCH ×3 (08:58→20:15)
[2021-09-06] MEDS: DULoxetine HCL 60 MG CAP PO SCH (08:59)
[2021-09-06] MEDS: CALCIUM 600MG + VIT D 400 IU TAB PO SCH ×2 (08:59→20:15)
[2021-09-06] MEDS: VITAMIN B COMPLEX TAB PO SCH (08:59)
[2021-09-06] MEDS: FERROUS SULFATE 325 MG TAB PO SCH (08:59)
[2021-09-06] MEDS: ASCORBIC ACID 500 MG TAB PO SCH (08:59)
[2021-09-06] MEDS ORDERED: amLODIPine BESYLATE 5 MG TAB PO SCH (09:00)
[2021-09-06] MEDS ORDERED: LOSARTAN POTASSIUM 50 MG TAB PO SCH (09:00)
[2021-09-06] MEDS ORDERED: NON-FORMULARY MEDICATION (Digestive Enzymes Capsule) PO SCH (09:00)
--- NOTE | 2021-09-06 11:22 | Hospitalist Progress Note ---
Date of Service September 06, 2021 Assessment & Plan (1) Pyelonephritis of right kidney: Plan: Right pyelonephritis/urine tract infection/sepsis- lactate normal on admission, WBC improving. Follow urine culture and sensitivity results Empiric Zosyn 4.5 g IV every 8 hours - continue pending culture results Acetaminophen 650 mg p.o. every 6 hours as needed mild pain or fever Zofran 4 mg IV every 6 hours as needed Lactated Ringer's at 125 mls/hour (2) Elevated troponin I level: Plan: Elevated troponin I level/history of cardiac pacemaker/hypertension- Likely type II, supply demand mismatch Hold triamterene/HCTZ/losartan/amlodipine No need for TTE in setting of no chest pain or shortness of breath. Recommend stress echo as outpatient as she has ongoing shortness of breath on exertion chronically (3) Status post placement of other cardiac pacemaker: Plan: See above (4) HTN (hypertension): Plan: Hold all anti-hypertensives in setting of relatively low BP (5) Acute kidney injury superimposed on CKD: Plan: ROSITA on CKD stage III Cr increased to 1.52 this morning. Will give LR 500ml bolus now and increase maintenance to 125ml/hr Repeat BMP in AM (6) Restless leg syndrome: Plan: RLS/PLMD continue ropinirole 2 mg at bedtime (7) GERD (gastroesophageal reflux disease): Plan: Continue pantoprazole (8) Seronegative arthritis: Plan: Hydroxychloroquine has been on hold for last 2 months, no reason to start this acutely (9) CKD (chronic kidney disease), stage III: Plan: See above (10) Idiopathic peripheral neuropathy: Plan: Continue gabapentin 100 mg p.o. 3 times daily and duloxetine 60 mg daily (11) PLMD (periodic limb movement disorder): Plan: See above (12) Hypothyroidism: Plan: Continue levothyroxine 100 mcg daily TSH 0.266. No change in dose at this time, can follow-up in the outpatient setting (13) Memory deficits: Plan: Follow clinically, appears to be at baseline and functioning well Plan: VTE Prophylaxis - heparin 7500 units SQ Diet - heart healthy Disposition - stable for transfer to med/surg, no abnormal rhythms on telemetry Admission and Anticipated Discharge Date Admission Date: September 05, 2021 Subjective Still feels very fatigued with urinary frequency. No dysuria. Mild right back pain but improving. T max 39.6 degrees C. No chest pain or shortness of breath. Reduced appetite. Review of Systems Review of Systems: All systems reviewed & are unremarkable except as noted in Subjective Physical Exam Constitutional: WD/WN, vitals as above Neck: trachea midline, no thyromegaly Respiratory: normal respiratory effort, lungs clear to auscultation Cardiovascular: RRR, no murmur, no edema Gastrointestinal (Abdomen): Inspection/Auscultation: normal bowel sounds Percussion/Palpation: abdomen soft; abdomen nontender, no guarding and abdomen not rigid Musculoskeletal: no cyanosis or clubbing, extremities motor strength 5/5 Skin: no rashes, warm and dry Neurologic: moves all extremities and awake; not confused Psychiatric: A+Ox3, euthymic affect Genitourinary: + CVA tenderness (mild on right) Results & Data Results & Data ([facility]) Vital Signs (Past 12 Hours) Vital Signs Temp Pulse Pulse Resp BP Pulse Ox 09/06/21 08:45 36.7 C 83 21 122/50 L 99 09/06/21 07:34 82 09/06/21 04:09 37.2 C 73 18 94/37 L 100 09/05/21 23:44 38.0 C H 79 18 108/30 L 99 09/05/21 23:42 79 PG Care Time/CCT Total # of Minutes Spent Total Time Spent with Patient: Total time spent is greater than 50% in coordination of care (as documented) at patient's floor/unit and/or counseling patient: Coding Level of Care Code 97839 Subseq Hosp Care Lvl 2 Diagnoses Pyelonephritis of right kidney N12 Elevated troponin I level R77.8 Status post placement of other cardiac pacemaker Z95.0 HTN (hypertension) I10 Acute kidney injury superimposed on CKD N17.9; N18.9 Restless leg syndrome G25.81 GERD (gastroesophageal reflux disease) K21.9 Seronegative arthritis M13.80 CKD (chronic kidney disease), stage III N18.3 Idiopathic peripheral neuropathy G60.9 PLMD (periodic limb movement disorder) G47.61 Hypothyroidism E03.9 Memory deficits R41.3
[2021-09-06] MEDS: ACETAMINOPHEN 325 MG TAB PO PRN ×2 (15:06→22:31)
--- NOTE | 2021-09-06 16:43 | Emergency Department Note ---
Impression & Plan Pyelonephritis, Fever, Leukocytosis ED Provider Note CHIEF COMPLAINT: Weakness, fever HISTORY OF PRESENT ILLNESS: This 65 yo female patient presents to the emergency department with c/o weakness, fever up to 103.6 degrees. Patient states she began with urinary incontinence over the last 24 hours. She states the urine is "just running out" of her. Pt states she is generally weak, but denies muscle aches, CP, vomiting, abdominal pain and diarrhea. Patient denies any blood in the urine. Dialysis EtOH patient denies any recent antibiotic use. Patient did arrive via EMS and received 1 g of IV acetaminophen prior to arrival. REVIEW OF SYSTEMS: A review of systems was performed with positives and pertinent negatives listed in the history of present illness. 10 systems were reviewed and are otherwise negative. ALLERGIES: see below MEDICATIONS: see below PMH: see below SOCIAL HISTORY: see below DDx: COVID, influenza, other viral process, tick borne illness, pharyngitis, pneumonia, influenza, meningitis, urinary tract infection, sepsis, bacteremia, as well as other pathologies. PHYSICAL EXAM: Vital signs reviewed. General: Somewhat ill appearing, obese 65 yo female, in no significant distress. HEENT: No scleral icterus, PERRLA, neck supple. Atraumatic. Cardiovascular: Regular rate and rhythm, no extra sounds. Pulmonary: Clear to auscultation bilaterally, normal work of breathing. Abdomen: Soft, obese, nontender, nondistended, positive bowel sounds. Musculoskeletal: Atraumatic, no peripheral edema. Neurologic: Patient awake alert and answers questions but becomes Skin: Warm, diaphoretic, no rash EMERGENCY DEPARTMENT COURSE/MDM: This patient was evaluated and appeared to be in no significant distress. Patient was febrile and diaphoretic. Vital signs remained stable. IV fluids were initiated and the patient had received IV Tylenol prior to arrival. Patient is noted to have a positive UA which is indicative of UTI, lab work is significant to have elevated WBC and procalcitonin, but normal lactate. Pt was given IV Zosyn 4.5 gm after blood cu ltures. Pt was d/w the hospitalist service for admission and further management. MONITORING: An order for cardiac monitoring was placed and the patient is noted to be in a NSR at 85 beats per minute. RADIOLOGY: see below EKG:NSR at 88 bpm w RBBB, T wave abnl, repolarization abnormality in the in ferior leads, consider inferior ischemia, QTC is 448, no significant change from previous when compared to 07/09/21 DISPOSITION:Admit Past Med/Surg History Medical History Essential tremor GERD (gastroesophageal reflux disease) History of COVID-26 JULY 2020>SYMPTOMS MILD (FEELING BETTER) Hx of kidney disease WNL CURRENLTY/WAS STAGE 3 Hypercholesterolemia Hypertension Hypothyroidism Interdigital neuroma of foot HX FOOT INJECTIONS *DONE UNDER ANESTHESIA Myopathy Neuropathy Pacemaker INSERTED 2018/recurrent syncope secondary to symptomatic bradycardia Paroxysmal SVT (supraventricular tachycardia) No recent reoccurrences per patient in recent cardio note (06/20/21) Restless legs syndrome Rheumatoid arthritis SERUM NEGATIVE Right bundle branch block (RBBB) FOLLOWS WITH DR. FERMIN Sleep apnea CPAP Spinal stenosis of lumbar region Spondylolysis Vascular disease Renal artery stenosis, celiac/SMA stenosis- no intervention felt necessary per 02/05/21 vascular note Surgical History Encounter for biopsy (07/09/21) Left Thigh Muscle Biopsy - Solo Parada DO, FACS 07/09/2021 History of bilateral tubal ligation History of breast biopsy aspiration of cyst from left breast benign History of cholecystectomy History of colonoscopy History of dilatation and curettage History of esophagogastroduodenoscopy (EGD) History of hand surgery right finger left hand--I&D History of tooth extraction History of total abdominal hysterectomy and bilateral salpingo-oophorectomy Family History Grandmother (Maternal) Family history of diabetes mellitus Father Myocardial infarction Lung cancer Hypertension Mother Acute myocardial infarction Hypertension Other No family history of adverse response to anesthesia Denies family history of Ovarian cancer Breast cancer Colorectal cancer Social History Smoking Status: Never smoker Second Hand Exposure: Yes (parents smoked); Hx Alcohol Use: No Hx Substance Use: No Preferred Language: Maori Communication Ability: Effective Visual Impairment: No Limitations Offal Trimmer Required: No Beliefs That Will Affect Care: None marital status: Current Living Situation: Spouse Current Living Situation Comment: lives with current occupational status: employed and retired How many Children do You have: 2 Feels Safe at Home: Yes caffeine: Yes during the past year weight has: increased > 10 lbs Dental Care, Regularly: Yes Physical Activity Frequency: Daily Seatbelt Use: always Assistive Devices: CPAP and Glasses Allergies Allergies Allergy/AdvReac Type Severity Reaction Status Date / Time rifapentine Allergy Intermediate CARDIAC Verified 09/05/21 20:07 ARRHYTHMIA AND RENAL FAILURE rifampin AdvReac cardiac Verified 09/05/21 20:07 arrhymia + renal failure Home Meds Home Medications Medication Instructions Recorded Confirmed calcium carbonate 600 mg-vitamin 1 tab PO BID 06/21/18 09/05/21 D3 5 mcg (200 unit) capsule (Calcium 600 + D(3)) duloxetine 60 mg capsule,delayed 60 mg PO QAM 06/24/20 09/05/21 release (Cymbalta) aspirin 81 mg tablet,delayed 81 mg PO QPM 06/19/21 09/05/21 release levothyroxine 100 mcg capsule 100 mcg PO DAILY 06/19/21 09/05/21 B-complex with vitamin C 1 cap PO DAILY 07/09/21 09/05/21 ascorbate calcium (vitamin C) 500 500 mg PO DAILY 07/09/21 09/05/21 mg tablet ferrous sulfate 325 mg (65 mg 325 mg PO DAILY 07/09/21 09/05/21 iron) tablet (Feosol) lactobacillus combination no.4 3 3,000 mmu cells PO PM 07/09/21 09/05/21 billion cell capsule (Probiotic) digestive enzymes 1 cap PO TID 07/10/21 09/05/21 docusate sodium 100 mg capsule 100 mg PO PM 07/10/21 09/05/21 (Dulcolax Stool Softener (docusate)) magnesium 250 mg tablet 250 mg PO DAILY 07/10/21 09/05/21 pantoprazole 40 mg tablet,delayed 40 mg PO DAILY 07/10/21 09/05/21 release ropinirole 1 mg tablet 2 mg PO HS 07/10/21 09/05/21 Previous Rx's Medication Instructions Recorded gabapentin 100 mg capsule 100 mg PO TID #90 cap 08/01/21 sulfamethoxazole 800 1 tab PO Q12 11 Days #22 tab 09/08/21 mg-trimethoprim 160 mg tablet (Bactrim DS) Results & Data (ED) Vital Signs Vital Signs - 24 hr 09/05/21 16:51 09/05/21 18:07 09/05/21 20:00 Temperature 39.4 C H 37.3 C 38.3 C H Temperature Source Oral Oral Oral Pulse Rate 87 Pulse Rate [Apical] 85 75 95 H Respiratory Rate 19 19 18 Respiratory Effort / Characteristics Non-Labored Respiratory Depth Normal Blood Pressure 153/53 H Blood Pressure [Right Arm] 153/53 H 139/75 164/69 H Blood Pressure Mean 86 Blood Pressure Mean [Right Arm] 86 96 100 Pulse Oximetry 95 95 96 Oxygen Delivery Method Room Air Room Air Sepsis Recent Fever Within 48 Hours Yes Sepsis New/Unexplained Change in Mental Status Yes Sepsis Action Taken by Nursing Physician Notified 09/05/21 22:00 Temperature 39.3 C H Temperature Source Oral Pulse Rate Pulse Rate [Apical] 85 Respiratory Rate 16 Respiratory Effort / Characteristics Respiratory Depth Blood Pressure Blood Pressure [Right Arm] 132/68 Blood Pressure Mean Blood Pressure Mean [Right Arm] 89 Pulse Oximetry 95 Oxygen Delivery Method Sepsis Recent Fever Within 48 Hours Sepsis New/Unexplained Change in Mental Status Sepsis Action Taken by Long Term Medications Current Medication List: was personally reviewed by me Laboratory Data Attestation: I reviewed the patient's lab results. Result diagrams: 09/08/21 07:22 09/08/21 07:22 Lab Results 09/05/21 09/05/21 09/05/21 Range/Units 16:50 16:50 16:50 WBC 13.65 H (4.8-10.8) K/uL RBC 3.84 L (4.2-5.4) M/uL Hgb 11.8 L (12.0-16.0) g/dL Hct 35.0 L (37-47) % MCV 91.1 (80-100) fL MCH 30.7 (25-34) pg MCHC 33.7 (32-36) g/dL RDW Std Deviation 45.3 (36.4-46.3) fL RDW Coeff of Rowdy 13.6 (11.5-14.5) % Plt Count 161 (130-400) K/uL MPV 12.0 H (7.4-10.4) fL Immature Gran % (Auto) 0.4 % Neut % (Auto) 76.9 % Lymph % (Auto) 8.2 % Early % (Auto) 14.4 % Eos % (Auto) 0.0 % Baso % (Auto) 0.1 % Neut # (Auto) 10.49 H (1.4-6.5) K/uL Lymph # (Auto) 1.12 L (1.2-3.4) K/uL Early # (Auto) 1.97 H (0.11-0.59) K/uL Eos # (Auto) 0.00 (0-0.5) K/uL Baso # (Auto) 0.02 (0-0.2) K/uL Immature Gran # (Auto) 0.05 H (0.00-0.02) K/uL Sodium 135 L (136-145) mmol/L Potassium 2.9 L (3.5-5.1) mmol/L Chloride 98 (98-107) mmol/L Carbon Dioxide 27 (21-32) mmol/L Anion Gap 10 (3-11) BUN 32 H (6-23) mg/dl Creatinine 1.39 H (0.6-1.2) mg/dl Est Cr Clr Drug Dosing 49.3 ml/min Est GFR ( Amer) 46.3 ml/min Est GFR (Non-Af Amer) 40.0 ml/min BUN/Creatinine Ratio 23.0 H (10-20) Glucose 117 H (70-99(Fasting)) mg/dl Lactate (0.4-2.0) mmol/L Calcium 8.7 (8.5-10.1) mg/dl Magnesium 1.7 (1.7-2.4) mg/dl Total Bilirubin 0.9 (0.2-1.0) mg/dl AST 20 (13-39) U/L ALT 20 (7-52) U/L Alkaline Phosphatase 53 (34-104) U/L Troponin I High Sens 68.2 H* (0-14) pg/ml Total Protein 6.4 (6.0-8.3) gm/dl Albumin 3.6 (3.4-5.0) gm/dl Globulin 2.8 (2.5-4.0) gm/dl Albumin/Globulin Ratio 1.3 (0.9-2) Procalcitonin (0-0.5) ng/ml TSH (0.300-4.500) uIu/ml Free T4 (0.61-1.60) ng/dl Urine Color Urine Appearance (Clear) Urine pH (4.5-7.5) Ur Specific Thornton (1.000-1.030) Urine Protein (Negative) Urine Glucose (UA) (Negative) Urine Ketones (Negative) Urine Blood (Negative) Urine Nitrite (Negative) Urine Bilirubin (Negative) Urine Urobilinogen (Negative) Ur Leukocyte Esterase (Negative) Urine WBC (Auto) (0-5) /hpf Urine RBC (Auto) (0-4) /hpf U Hyaline Cast (Auto) (0-5) /lpf U Epithel Cells (Auto) (0-5) /lpf Urine Bacteria (Auto) (Negative) Granular Casts (0) /lpf Urine Yeast SARS-CoV-2 (PCR) (Negative) Influenza Type A (PCR) (Neg) Influenza Type B (PCR) (Neg) RSV (RT-PCR) (Neg) SARS-CoV-2, RNA, NAAT 09/05/21 09/05/21 09/05/21 Range/Units 16:50 16:50 17:23 WBC (4.8-10.8) K/uL RBC (4.2-5.4) M/uL Hgb (12.0-16.0) g/dL Hct (37-47) % MCV (80-100) fL MCH (25-34) pg MCHC (32-36) g/dL RDW Std Deviation (36.4-46.3) fL RDW Coeff of Rowdy (11.5-14.5) % Plt Count (130-400) K/uL MPV (7.4-10.4) fL Immature Gran % (Auto) % Neut % (Auto) % Lymph % (Auto) % Early % (Auto) % Eos % (Auto) % Baso % (Auto) % Neut # (Auto) (1.4-6.5) K/uL Lymph # (Auto) (1.2-3.4) K/uL Early # (Auto) (0.11-0.59) K/uL Eos # (Auto) (0-0.5) K/uL Baso # (Auto) (0-0.2) K/uL Immature Gran # (Auto) (0.00-0.02) K/uL Sodium (136-145) mmol/L Potassium (3.5-5.1) mmol/L Chloride (98-107) mmol/L Carbon Dioxide (21-32) mmol/L Anion Gap (3-11) BUN (6-23) mg/dl Creatinine (0.6-1.2) mg/dl Est Cr Clr Drug Dosing ml/min Est GFR ( Amer) ml/min Est GFR (Non-Af Amer) ml/min BUN/Creatinine Ratio (10-20) Glucose (70-99(Fasting)) mg/dl Lactate (0.4-2.0) mmol/L Calcium (8.5-10.1) mg/dl Magnesium (1.7-2.4) mg/dl Total Bilirubin (0.2-1.0) mg/dl AST (13-39) U/L ALT (7-52) U/L Alkaline Phosphatase (34-104) U/L Troponin I High Sens (0-14) pg/ml Total Protein (6.0-8.3) gm/dl Albumin (3.4-5.0) gm/dl Globulin (2.5-4.0) gm/dl Albumin/Globulin Ratio (0.9-2) Procalcitonin (0-0.5) ng/ml TSH 0.266 L (0.300-4.500) uIu/ml Free T4 1.39 (0.61-1.60) ng/dl Urine Color Urine Appearance (Clear) Urine pH (4.5-7.5) Ur Specific Thornton (1.000-1.030) Urine Protein (Negative) Urine Glucose (UA) (Negative) Urine Ketones (Negative) Urine Blood (Negative) Urine Nitrite (Negative) Urine Bilirubin (Negative) Urine Urobilinogen (Negative) Ur Leukocyte Esterase (Negative) Urine WBC (Auto) (0-5) /hpf Urine RBC (Auto) (0-4) /hpf U Hyaline Cast (Auto) (0-5) /lpf U Epithel Cells (Auto) (0-5) /lpf Urine Bacteria (Auto) (Negative) Granular Casts (0) /lpf Urine Yeast SARS-CoV-2 (PCR) NEGATIVE (Negative) Influenza Type A (PCR) Negative (Neg) Influenza Type B (PCR) Negative (Neg) RSV (RT-PCR) Negative (Neg) SARS-CoV-2, RNA, NAAT Cancelled 09/05/21 09/05/21 09/05/21 Range/Units 17:23 17:51 17:51 WBC (4.8-10.8) K/uL RBC (4.2-5.4) M/uL Hgb (12.0-16.0) g/dL Hct (37-47) % MCV (80-100) fL MCH (25-34) pg MCHC (32-36) g/dL RDW Std Deviation (36.4-46.3) fL RDW Coeff of Rowdy (11.5-14.5) % Plt Count (130-400) K/uL MPV (7.4-10.4) fL Immature Gran % (Auto) % Neut % (Auto) % Lymph % (Auto) % Early % (Auto) % Eos % (Auto) % Baso % (Auto) % Neut # (Auto) (1.4-6.5) K/uL Lymph # (Auto) (1.2-3.4) K/uL Early # (Auto) (0.11-0.59) K/uL Eos # (Auto) (0-0.5) K/uL Baso # (Auto) (0-0.2) K/uL Immature Gran # (Auto) (0.00-0.02) K/uL Sodium (136-145) mmol/L Potassium (3.5-5.1) mmol/L Chloride (98-107) mmol/L Carbon Dioxide (21-32) mmol/L Anion Gap (3-11) BUN (6-23) mg/dl Creatinine (0.6-1.2) mg/dl Est Cr Clr Drug Dosing ml/min Est GFR ( Amer) ml/min Est GFR (Non-Af Amer) ml/min BUN/Creatinine Ratio (10-20) Glucose (70-99(Fasting)) mg/dl Lactate 0.9 (0.4-2.0) mmol/L Calcium (8.5-10.1) mg/dl Magnesium (1.7-2.4) mg/dl Total Bilirubin (0.2-1.0) mg/dl AST (13-39) U/L ALT (7-52) U/L Alkaline Phosphatase (34-104) U/L Troponin I High Sens (0-14) pg/ml Total Protein (6.0-8.3) gm/dl Albumin (3.4-5.0) gm/dl Globulin (2.5-4.0) gm/dl Albumin/Globulin Ratio (0.9-2) Procalcitonin 3.32 H (0-0.5) ng/ml TSH (0.300-4.500) uIu/ml Free T4 (0.61-1.60) ng/dl Urine Color Dark Yellow Urine Appearance Cloudy A (Clear) Urine pH 5.5 (4.5-7.5) Ur Specific Thornton 1.019 (1.000-1.030) Urine Protein 2+ H (Negative) Urine Glucose (UA) Negative (Negative) Urine Ketones Negative (Negative) Urine Blood 3+ H (Negative) Urine Nitrite Positive A (Negative) Urine Bilirubin Negative (Negative) Urine Urobilinogen Negative (Negative) Ur Leukocyte Esterase Trace H (Negative) Urine WBC (Auto) 10-30 H (0-5) /hpf Urine RBC (Auto) >30 H (0-4) /hpf U Hyaline Cast (Auto) 1-5 (0-5) /lpf U Epithel Cells (Auto) 10-20 H (0-5) /lpf Urine Bacteria (Auto) 4+ H (Negative) Granular Casts 1-5 H (0) /lpf Urine Yeast Not Reportable SARS-CoV-2 (PCR) (Negative) Influenza Type A (PCR) (Neg) Influenza Type B (PCR) (Neg) RSV (RT-PCR) (Neg) SARS-CoV-2, RNA, NAAT 09/05/21 Range/Units 19:10 WBC (4.8-10.8) K/uL RBC (4.2-5.4) M/uL Hgb (12.0-16.0) g/dL Hct (37-47) % MCV (80-100) fL MCH (25-34) pg MCHC (32-36) g/dL RDW Std Deviation (36.4-46.3) fL RDW Coeff of Rowdy (11.5-14.5) % Plt Count (130-400) K/uL MPV (7.4-10.4) fL Immature Gran % (Auto) % Neut % (Auto) % Lymph % (Auto) % Early % (Auto) % Eos % (Auto) % Baso % (Auto) % Neut # (Auto) (1.4-6.5) K/uL Lymph # (Auto) (1.2-3.4) K/uL Early # (Auto) (0.11-0.59) K/uL Eos # (Auto) (0-0.5) K/uL Baso # (Auto) (0-0.2) K/uL Immature Gran # (Auto) (0.00-0.02) K/uL Sodium (136-145) mmol/L Potassium (3.5-5.1) mmol/L Chloride (98-107) mmol/L Carbon Dioxide (21-32) mmol/L Anion Gap (3-11) BUN (6-23) mg/dl Creatinine (0.6-1.2) mg/dl Est Cr Clr Drug Dosing ml/min Est GFR ( Amer) ml/min Est GFR (Non-Af Amer) ml/min BUN/Creatinine Ratio (10-20) Glucose (70-99(Fasting)) mg/dl Lactate (0.4-2.0) mmol/L Calcium (8.5-10.1) mg/dl Magnesium (1.7-2.4) mg/dl Total Bilirubin (0.2-1.0) mg/dl AST (13-39) U/L ALT (7-52) U/L Alkaline Phosphatase (34-104) U/L Troponin I High Sens 67.2 H* (0-14) pg/ml Total Protein (6.0-8.3) gm/dl Albumin (3.4-5.0) gm/dl Globulin (2.5-4.0) gm/dl Albumin/Globulin Ratio (0.9-2) Procalcitonin (0-0.5) ng/ml TSH (0.300-4.500) uIu/ml Free T4 (0.61-1.60) ng/dl Urine Color Urine Appearance (Clear) Urine pH (4.5-7.5) Ur Specific Thornton (1.000-1.030) Urine Protein (Negative) Urine Glucose (UA) (Negative) Urine Ketones (Negative) Urine Blood (Negative) Urine Nitrite (Negative) Urine Bilirubin (Negative) Urine Urobilinogen (Negative) Ur Leukocyte Esterase (Negative) Urine WBC (Auto) (0-5) /hpf Urine RBC (Auto) (0-4) /hpf U Hyaline Cast (Auto) (0-5) /lpf U Epithel Cells (Auto) (0-5) /lpf Urine Bacteria (Auto) (Negative) Granular Casts (0) /lpf Urine Yeast SARS-CoV-2 (PCR) (Negative) Influenza Type A (PCR) (Neg) Influenza Type B (PCR) (Neg) RSV (RT-PCR) (Neg) SARS-CoV-2, RNA, NAAT Administered Medications Discontinued Medications Acetaminophen (Acetaminophen 325 Mg Tab) 650 mg PO NOW STA Stop: 09/05/21 22:04 Last Admin: 09/05/21 22:54 Dose: 650 mg Documented by: [id number] Acetaminophen (Acetaminophen 325 Mg Tab) 325 mg PO NOW STA Stop: 09/05/21 23:03 Last Admin: 09/05/21 23:06 Dose: 325 mg Documented by: [id number] Acetaminophen (Acetaminophen 325 Mg Tab) 650 mg PO Q4H PRN PRN Reason: pain/fever Stop: 10/05/21 23:41 Last Admin: 09/07/21 21:46 Dose: 650 mg Documented by: [id number] Admin: 09/06/21 22:31 Dose: 650 mg Documented by: [id number] Admin: 09/06/21 15:06 Dose: 650 mg Documented by: [id number] Ascorbic Acid (Ascorbic Acid 500 Mg Tab) 500 mg PO DAILY DODIE Stop: 10/06/21 08:59 Last Admin: 09/08/21 08:29 Dose: 500 mg Documented by: [id number] Admin: 09/07/21 07:47 Dose: 500 mg Documented by: [id number] Admin: 09/06/21 08:59 Dose: 500 mg Documented by: [id number] Aspirin (Aspirin 81 Mg Ectab) 81 mg PO QPM DODIE Stop: 10/06/21 20:59 Last Admin: 09/07/21 20:01 Dose: 81 mg Documented by: [id number] Admin: 09/06/21 20:15 Dose: 81 mg Documented by: [id number] Docusate Sodium (Docusate Sodium 100 Mg Cap) 100 mg PO PM DODIE Stop: 10/06/21 20:59 Last Admin: 09/07/21 20:04 Dose: 100 mg Documented by: [id number] Admin: 09/06/21 20:15 Dose: 100 mg Documented by: [id number] Duloxetine HCl (Duloxetine Hcl 60 Mg Cap) 60 mg PO QAM DODIE Stop: 10/06/21 08:59 Last Admin: 09/08/21 08:28 Dose: 60 mg Documented by: [id number] Admin: 09/07/21 07:46 Dose: 60 mg Documented by: [id number] Admin: 09/06/21 08:59 Dose: 60 mg Documented by: [id number] Enoxaparin Sodium (Enoxaparin Inj 40 Mg/0.4 Ml Syr) 40 mg SQ QPM DODIE Stop: 10/07/21 20:59 Last Admin: 09/07/21 20:02 Dose: Not Given Documented by: [id number] Ferrous Sulfate (Ferrous Sulfate 325 Mg Tab) 325 mg PO DAILY DODIE Stop: 10/06/21 08:59 Last Admin: 09/08/21 08:29 Dose: 325 mg Documented by: [id number] Admin: 09/07/21 07:46 Dose: 325 mg Documented by: [id number] Admin: 09/06/21 08:59 Dose: 325 mg Documented by: [id number] Gabapentin (Gabapentin 100 Mg Cap) 100 mg PO TID DODIE Stop: 10/06/21 08:59 Last Admin: 09/08/21 08:29 Dose: 100 mg Documented by: [id number] Admin: 09/07/21 20:02 Dose: 100 mg Documented by: [id number] Admin: 09/07/21 13:16 Dose: 100 mg Documented by: [id number] Admin: 09/07/21 07:46 Dose: 100 mg Documented by: [id number] Admin: 09/06/21 20:15 Dose: 100 mg Documented by: [id number] Admin: 09/06/21 12:54 Dose: 100 mg Documented by: [id number] Admin: 09/06/21 08:58 Dose: 100 mg Documented by: [id number] Heparin Sodium (Porcine) (Heparin Sod 5,000 Unit/0.5 Ml Vial) 7,500 units SQ Q8 DODIE Stop: 10/05/21 23:41 Last Admin: 09/07/21 06:22 Dose: Not Given Documented by: [id number] Admin: 09/06/21 20:15 Dose: 7,500 units Documented by: [id number] Admin: 09/06/21 12:54 Dose: 7,500 units Documented by: [id number] Admin: 09/06/21 06:01 Dose: 7,500 units Documented by: [id number] Admin: 09/06/21 00:29 Dose: 7,500 units Documented by: [id number] Sodium Chloride (Nss 1000ml) 1,000 mls @ 125 mls/hr IV .Q8H DODIE Stop: 09/06/21 00:59 Last Infusion: 09/06/21 00:05 Dose: 0 mls/hr Documented by: [id number] Infusion: 09/06/21 00:05 Dose: 0 mls/hr Documented by: [id number] Admin: 09/05/21 18:20 Dose: 125 mls/hr Documented by: [id number] Piperacillin Sod/Tazobactam Sod (Zosyn) 4.5 gm in 120 mls @ 240 mls/hr IV NOW ONE Stop: 09/05/21 17:37 Last Infusion: 09/06/21 00:04 Dose: 0 mls/hr Documented by: [id number] Admin: 09/05/21 18:20 Dose: 240 mls/hr Documented by: [id number] Potassium Chloride (K Jean / Wtr) 10 meq in 100 mls @ 100 mls/hr IV Q1H [facility]; Protocol Stop: 09/05/21 21:44 Last Infusion: 09/06/21 00:06 Dose: 0 mls/hr Documented by: [id number] Admin: 09/05/21 21:37 Dose: 100 mls/hr Documented by: [id number] Infusion: 09/05/21 21:37 Dose: 0 mls/hr Documented by: [id number] Admin: 09/05/21 19:45 Dose: 100 mls/hr Documented by: [id number] Magnesium Sulfate/Dextrose (Magnesium Sulfate / D5w) 1 gm in 100 mls @ 50 mls/hr IV ONE ONE Stop: 09/05/21 23:21 Last Infusion: 09/06/21 00:37 Dose: 0 mls/hr Documented by: [id number] Admin: 09/05/21 22:37 Dose: 50 mls/hr Documented by: [id number] Piperacillin Sod/Tazobactam (Sod 4.5 gm/ Dextrose) 120 mls @ 30 mls/hr IV Q8H DODIE; Protocol Stop: 09/16/21 00:00 Last Infusion: 09/07/21 11:03 Dose: 0 mls/hr Documented by: [id number] Admin: 09/07/21 07:52 Dose: 30 mls/hr Documented by: [id number] Infusion: 09/07/21 03:42 Dose: 0 mls/hr Documented by: [id number] Admin: 09/06/21 23:42 Dose: 30 mls/hr Documented by: [id number] Infusion: 09/06/21 21:09 Dose: 0 mls/hr Documented by: [id number] Admin: 09/06/21 17:08 Dose: 30 mls/hr Documented by: [id number] Infusion: 09/06/21 12:54 Dose: 0 mls/hr Documented by: [id number] Admin: 09/06/21 08:55 Dose: 30 mls/hr Documented by: [id number] Infusion: 09/06/21 04:56 Dose: 0 mls/hr Documented by: [id number] Admin: 09/06/21 00:56 Dose: 30 mls/hr Documented by: [id number] Lactated Ringer's (Lr) 1,000 mls @ 125 mls/hr IV .Q8H DODIE Stop: 10/05/21 23:41 Last Infusion: 09/08/21 11:20 Dose: 0 mls/hr Documented by: [id number] Admin: 09/08/21 10:45 Dose: 125 mls/hr Documented by: [id number] Infusion: 09/08/21 10:45 Dose: 125 mls/hr Documented by: [id number] Admin: 09/08/21 03:08 Dose: 125 mls/hr Documented by: [id number] Infusion: 09/08/21 03:08 Dose: 125 mls/hr Documented by: [id number] Admin: 09/07/21 19:57 Dose: 125 mls/hr Documented by: [id number] Infusion: 09/07/21 19:41 Dose: 125 mls/hr Documented by: [id number] Admin: 09/07/21 11:41 Dose: 125 mls/hr Documented by: [id number] Infusion: 09/07/21 11:41 Dose: 125 mls/hr Documented by: [id number] Admin: 09/07/21 04:15 Dose: 125 mls/hr Documented by: [id number] Infusion: 09/07/21 04:15 Dose: 125 mls/hr Documented by: [id number] Admin: 09/06/21 20:27 Dose: 125 mls/hr Documented by: [id number] Infusion: 09/06/21 20:27 Dose: 125 mls/hr Documented by: [id number] Admin: 09/06/21 12:54 Dose: 125 mls/hr Documented by: [id number] Infusion: 09/06/21 12:54 Dose: 125 mls/hr Documented by: [id number] Infusion: 09/06/21 09:42 Dose: 125 mls/hr Documented by: [id number] Admin: 09/06/21 00:26 Dose: 80 mls/hr Documented by: [id number] Lactated Ringer's (Lr) 500 mls @ 999 mls/hr IV .Q31M ONE Stop: 09/06/21 08:04 Last Infusion: 09/06/21 09:22 Dose: 0 mls/hr Documented by: [id number] Admin: 09/06/21 08:51 Dose: 999 mls/hr Documented by: [id number] Ioversol (Optiray 320 100ml) 95 ml IV ONCE ONE Stop: 09/05/21 20:44 Last Admin: 09/05/21 20:43 Dose: 95 ml Documented by: [id number] Lactobacillus Acidophilus (Advanced Probiotic 1250 Mg Capsule) 2 cap PO PM DODIE Stop: 10/06/21 20:59 Last Admin: 09/07/21 20:01 Dose: 2 cap Documented by: [id number] Admin: 09/06/21 20:15 Dose: 2 cap Documented by: [id number] Levothyroxine Sodium (Levothyroxine Sodium 100 Mcg Tablet) 100 mcg PO DAILYBB DODIE Stop: 10/06/21 06:29 Last Admin: 09/08/21 06:39 Dose: 100 mcg Documented by: [id number] Admin: 09/07/21 06:20 Dose: 100 mcg Documented by: [id number] Admin: 09/06/21 06:00 Dose: 100 mcg Documented by: [id number] Magnesium Oxide (Magnesium Oxide 400 Mg Tab) 400 mg PO DAILY DODIE Stop: 10/06/21 08:59 Last Admin: 09/08/21 08:28 Dose: 400 mg Documented by: [id number] Admin: 09/07/21 07:46 Dose: 400 mg Documented by: [id number] Admin: 09/06/21 08:58 Dose: 400 mg Documented by: [id number] Multivitamins/Minerals (Calcium 600mg + Vit D 400 Iu Tab) 1 tab PO BID DODIE Stop: 10/06/21 08:59 Last Admin: 09/08/21 08:28 Dose: 1 tab Documented by: [id number] Admin: 09/07/21 20:01 Dose: 1 tab Documented by: [id number] Admin: 09/07/21 07:46 Dose: 1 tab Documented by: [id number] Admin: 09/06/21 20:15 Dose: 1 tab Documented by: [id number] Admin: 09/06/21 08:59 Dose: 1 tab Documented by: [id number] Ondansetron HCl (Ondansetron Inj 2 Mg/Ml 2 Ml Vial) 4 mg IV Q6H PRN PRN Reason: Nausea Stop: 10/05/21 23:41 Last Admin: 09/07/21 00:00 Dose: 4 mg Documented by: [id number] Admin: 09/06/21 07:21 Dose: 4 mg Documented by: [id number] Pantoprazole Sodium (Pantoprazole 40 Mg Tab) 40 mg PO DAILY DODIE Stop: 10/06/21 08:59 Last Admin: 09/08/21 08:28 Dose: 40 mg Documented by: [id number] Admin: 09/07/21 07:46 Dose: 40 mg Documented by: [id number] Admin: 09/06/21 08:58 Dose: 40 mg Documented by: [id number] Potassium Chloride (Potassium Chloride Crtab 20 Meq Tabcr) 20 meq PO NOW STA Stop: 09/07/21 11:22 Last Admin: 09/07/21 11:41 Dose: 20 meq Documented by: [id number] Ropinirole HCl (Ropinirole Hcl 2 Mg Tablet) 2 mg PO HS DODIE Stop: 10/06/21 20:59 Last Admin: 09/07/21 20:02 Dose: 2 mg Documented by: [id number] Admin: 09/06/21 20:15 Dose: 2 mg Documented by: [id number] Ropinirole HCl (Ropinirole Hcl 2 Mg Tablet) 2 mg PO NOW STA Stop: 09/06/21 01:46 Last Admin: 09/06/21 02:21 Dose: 2 mg Documented by: [id number] Trimethoprim/Sulfamethoxazole (Sulfamethoxazole/Trimethoprim Ds 800/160mg Tab) 1 tab PO Q12 DODIE; Protocol Stop: 09/17/21 20:59 Last Admin: 09/08/21 08:28 Dose: 1 tab Documented by: [id number] Admin: 09/07/21 20:02 Dose: 1 tab Documented by: [id number] Vitamin B Complex (Vitamin B Complex Tab) 1 tab PO DAILY DODIE Stop: 10/06/21 08:59 Last Admin: 09/08/21 08:28 Dose: 1 tab Documented by: [id number] Admin: 09/07/21 07:47 Dose: 1 tab Documented by: [id number] Admin: 09/06/21 08:59 Dose: 1 tab Documented by: [id number] Imaging Data Radiologist's Impression: Chest X-Ray 09/05/21 16:48 SINGLE VIEW CHEST CLINICAL HISTORY: Generalized weakness. FINDINGS: An AP, portable, upright chest radiograph is compared to study dated 07/10/2021 and correlated with chest CT dated 10/18/2020. A 2-lead cardiac pacemaker is unchanged in position. The heart is enlarged noting atherosclerotic calcification of the thoracic aorta. The pulmonary vasculature is noncongested. Chronic residual thickening and elevation of the right hemidiaphragm is similar to previous. There is mild bibasilar scarring/atelectasis. The lungs and pleural spaces are otherwise clear. No pneumothorax is seen. The skeletal structures are osteopenic. The bony thorax is grossly intact. Cholecystectomy clips are seen in the right upper quadrant. IMPRESSION: 1. Cardiomegaly and cardiac pacemaker with no radiographic evidence of congestive failure. 2. No airspace consolidation or large pleural effusion is identified. ACT 112: Negative or not required by law. Electronically signed by: Leighton Morelos M.D. 09/05/2021 5:30 PM Abdomen/Pelvis CT 09/05/21 20:18 CT SCAN OF THE ABDOMEN AND PELVIS WITH IV CONTRAST CLINICAL HISTORY: Hematuria. Urinary tract infection. COMPARISON STUDY: Abdominal CT dated 10/09/2020. TECHNIQUE: Following the IV administration of 95 cc of Optiray 320, CT scan of the abdomen and pelvis is performed from the lung bases to the proximal femora. Images are reviewed in the axial, sagittal, and coronal planes. IV contrast was administered without complication. A dose lowering technique was utilized adhering to the principles of ALARA. CT DOSE: 1242.21 mGy.cm FINDINGS: Lung bases: The heart is normal in size and without pericardial effusion. Pacemaker leads are noted. There are punctate calcified granulomas. The lung bases are otherwise clear. Liver: The contrast-enhanced liver is normal in size, contour, and attenuation. There is mild intrahepatic biliary ductal dilatation. The hepatic veins and portal veins are patent. Gallbladder: Surgically absent noting clips in the gallbladder fossa. Spleen: Normal in size and attenuation. Pancreas: Unremarkable. Adrenal glands: Unremarkable. Kidneys: The contrast enhanced kidneys are normal in size and without hydronephrosis. There is heterogeneous enhancement of the right kidney with a striated nephrogram.. There is right-sided perinephric stranding, with urothelial thickening and enhancement seen involving the right renal pelvis and the right ureter. The left kidney enhances homogeneously. There is a 5 mm nonobstructing left renal calculus. Abdominal vasculature: The abdominal aorta is normal in course and caliber noting mild atherosclerotic calcification. Bowel: There is mild colonic diverticulosis without CT evidence of acute diverticulitis. No bowel obstruction is identified. [id number]-br-yczlzqak fecal retention is seen throughout the colon. The appendix is well-visualized and normal. Peritoneum: There is no intraperitoneal free air or abdominal ascites. There is a fat-containing umbilical hernia. Lymphadenopathy: None. Pelvic viscera: The bladder wall appears mildly thickened. The uterus is surgically absent. No adnexal lesion is seen. Skeletal structures: The skeletal structures are osteopenic. There is grade 1 anterolisthesis and advanced disc space narrowing at L4-L5 with associated endplate sclerosis. No lytic or blastic lesions are seen. IMPRESSION: 1. Findings suggest cystitis with ascending urinary tract infection/pyelonephritis on the right. Correlate with clinical findings and urinalysis. 2. Nonobstructing left renal calculus. 3. Mild colonic diverticulosis without CT evidence of acute diverticulitis. 4. Additional findings as above. ACT 112: Negative or not required by law. Electronically signed by: Leighton Morelos M.D. 09/05/2021 9:25 PM Blood Pressure Blood Pressure Findings: Elevated blood pressure Blood Pressure Disposition: further management by hospitalist Discharge Plan Visit Data Chief Complaint: Weakness ED Provider: Parris Morales Discharge Problem: Pyelonephritis, Fever, Leukocytosis Patient Disposition: Admitted As Inpatient Discharge Instructions Interventions: ED Discharge Assessment Last Done: 09/05/21 23:14 Discharge Problem: Fever Qualifiers: Fever type: due to other condition Qualified Code(s): R50.81 - Fever presenting with conditions classified elsewhere Leukocytosis Qualifiers: Leukocytosis type: bandemia Qualified Code(s): D72.825 - Bandemia
[2021-09-06] MEDS: rOPINIRole HCL 2 MG TABLET PO SCH (20:15)
[2021-09-06] MEDS: DOCUSATE SODIUM 100 MG CAP PO SCH (20:15)
[2021-09-06] MEDS: ADVANCED PROBIOTIC 1250 MG CAPSULE PO SCH (20:15)
[2021-09-06] MEDS: ASPIRIN 81 MG ECTAB PO SCH (20:15)
[2021-09-07] MEDS: ONDANSETRON INJ 2 MG/ML 2 ML VIAL IV PRN
[2021-09-07] MEDS: LACTATED RINGER'S 1,000 ML IV SCH ×3 (04:15→19:57)
[2021-09-07] MEDS: HEPARIN SOD 5,000 UNIT/0.5 ML VIAL SQ SCH ×2 (06:20→06:22)
[2021-09-07] MEDS: LEVOTHYROXINE SODIUM 100 MCG TABLET PO SCH (06:20)
[2021-09-07] MEDS: FERROUS SULFATE 325 MG TAB PO SCH (07:46)
[2021-09-07] MEDS: GABAPENTIN 100 MG CAP PO SCH ×3 (07:46→20:02)
[2021-09-07] MEDS: MAGNESIUM OXIDE 400 MG TAB PO SCH (07:46)
[2021-09-07] MEDS: DULoxetine HCL 60 MG CAP PO SCH (07:46)
[2021-09-07] MEDS: CALCIUM 600MG + VIT D 400 IU TAB PO SCH ×2 (07:46→20:01)
[2021-09-07] MEDS: PANTOprazole 40 MG TAB PO SCH (07:46)
[2021-09-07] MEDS: VITAMIN B COMPLEX TAB PO SCH (07:47)
[2021-09-07] MEDS: ASCORBIC ACID 500 MG TAB PO SCH (07:47)
[2021-09-07] MEDS: PIPERACILLIN/TAZOBACTAM 4.5 GM in DEXTROSE 5% 100 ML IV SCH (07:52)
[2021-09-07 09:26] LABS: Basophils # (auto) 0.02 K/uL (0-0.2); Basophils % (auto) 0.3 %; Eosinophils % (auto) 1.6 %; Hematocrit (blood only) 29.5 % (37-47); Hemoglobin 9.9 g/dL (12.0-16.0); Immature Granulocytes # (auto) 0.01 K/uL (0.00-0.02); Immature Granulocytes % (auto) 0.2 %; Lymphocytes # (auto) 0.97 K/uL (1.2-3.4); Lymphocytes % (auto) 15.1 %; Mean Corpuscular Hgb Conc 33.6 g/dL (32-36); Mean Corpuscular Volume 89.4 fL (80-100); Mean Platelet Volume 11.1 fL (7.4-10.4); Neutrophils # (auto) 4.43 K/uL (1.4-6.5); Neutrophils % (auto) 68.8 %; Platelet Count 137 K/uL (130-400); RDW Coefficient of Variation 13.4 % (11.5-14.5); RDW Standard Deviation 44.3 fL (36.4-46.3); White Blood Count 6.43 K/uL (4.8-10.8)
[2021-09-07 09:43] LABS: Albumin Level 3.2 gm/dl (3.4-5.0); BUN Creatinine Ratio 21.5 (10-20); Calcium 8.7 mg/dl (8.5-10.1); Creatinine Clr Calc Pharmacy 51.9 ml/min; Est GFR (African American) 50.2 ml/min; Est GFR (Non-African American) 43.3 ml/min; Phosphorus 2.9 mg/dl (2.5-4.9); Potassium 3.2 mmol/L (3.5-5.1)
[2021-09-07] MEDS ORDERED: POTASSIUM CHLORIDE CRTAB 20 MEQ TABCR PO STA (11:21)
--- NOTE | 2021-09-07 11:34 | Hospitalist Progress Note ---
Date of Service September 07, 2021 Assessment & Plan (1) Pyelonephritis of right kidney: Plan: Right pyelonephritis/urine tract infection/sepsis- lactate normal on admission, WBC improving. Urine culture with pansensitive E. coli. Blood cultures negative at 24 hours. Switch Zosyn to Bactrim 800/160 BID to finish total 10-14 day course of antibiotics -would suggest longer duration given time to defervesce Acetaminophen 650 mg p.o. every 6 hours as needed mild pain or fever Zofran 4 mg IV every 6 hours as needed Cr now improving but will continue on Lactated Ringer's at 125 mls/hour for today (2) Elevated troponin I level: Plan: Elevated troponin I level/history of cardiac pacemaker/hypertension- Suspect type II, supply demand mismatch Hold triamterene/HCTZ/losartan/amlodipine No need for TTE in setting of no chest pain or shortness of breath. Recommend stress echo as outpatient as she has ongoing shortness of breath on exertion chronically (3) Status post placement of other cardiac pacemaker: Plan: See above (4) HTN (hypertension): Plan: Continue to hold all anti-hypertensives in setting of relatively low BP (5) Acute kidney injury superimposed on CKD: Plan: ROSITA on CKD stage III Improving back to baseline with lactated Ringer's as above. Repeat BMP in a.m. (6) Restless leg syndrome: Plan: RLS/PLMD continue ropinirole 2 mg at bedtime (7) GERD (gastroesophageal reflux disease): Plan: Continue pantoprazole (8) Seronegative arthritis: Plan: Hydroxychloroquine has been on hold for last 2 months, no reason to start this acutely (9) CKD (chronic kidney disease), stage III: Plan: See above (10) Idiopathic peripheral neuropathy: Plan: Continue gabapentin 100 mg p.o. 3 times daily and duloxetine 60 mg daily (11) PLMD (periodic limb movement disorder): Plan: See above (12) Hypothyroidism: Plan: Continue levothyroxine 100 mcg daily TSH 0.266. Free T4 normal. No change in dose at this time, can follow-up in the outpatient setting (13) Memory deficits: Plan: Follow clinically, appears to be at baseline and functioning well Plan: VTE Prophylaxis - heparin 7500 units SQ -patient refused this morning, switch to Lovenox 40 mg subcu daily now renal function is improving Diet - heart healthy Disposition - continue on MedSurg, possible discharge after physical therapy tomorrow. Admission and Anticipated Discharge Date Admission Date: September 05, 2021 Subjective Much improved today but far off her baseline. No chest pain, back pain or shortness of breath. Not yet had a BM. Appetite improving. T-max 39.1 C yesterday afternoon. No fever or chills yet today. Not yet have physical therapy but able to ambulate to bathroom. Review of Systems Review of Systems: All systems reviewed & are unremarkable except as noted in Subjective Physical Exam Constitutional: WD/WN, vitals as above Respiratory: normal respiratory effort, lungs clear to auscultation Cardiovascular: RRR, no murmur, no edema Gastrointestinal (Abdomen): Inspection/Auscultation: normal bowel sounds Percussion/Palpation: abdomen soft; abdomen nontender, no guarding and abdomen not rigid Musculoskeletal: no cyanosis or clubbing, extremities motor strength 5/5 Skin: no rashes, warm and dry Neurologic: moves all extremities and awake; not confused Psychiatric: A+Ox3, euthymic affect Genitourinary: no CVA tenderness Results & Data Results & Data ([facility]) Vital Signs (Past 12 Hours) Vital Signs Temp Pulse Resp BP Pulse Ox 09/07/21 07:58 36.7 C 60 17 130/64 100 PG Care Time/CCT Total # of Minutes Spent Total Time Spent with Patient: Total time spent is greater than 50% in coordination of care (as documented) at patient's floor/unit and/or counseling patient: Coding Level of Care Code 70364 Subseq Hosp Care Lvl 2 Diagnoses Pyelonephritis of right kidney N12 Elevated troponin I level R77.8 Status post placement of other cardiac pacemaker Z95.0 HTN (hypertension) I10 Acute kidney injury superimposed on CKD N17.9; N18.9 Restless leg syndrome G25.81 GERD (gastroesophageal reflux disease) K21.9 Seronegative arthritis M13.80 CKD (chronic kidney disease), stage III N18.3 Idiopathic peripheral neuropathy G60.9 PLMD (periodic limb movement disorder) G47.61 Hypothyroidism E03.9 Memory deficits R41.3
[2021-09-07] MEDS: ADVANCED PROBIOTIC 1250 MG CAPSULE PO SCH (20:01)
[2021-09-07] MEDS: ASPIRIN 81 MG ECTAB PO SCH (20:01)
[2021-09-07] MEDS: rOPINIRole HCL 2 MG TABLET PO SCH (20:02)
[2021-09-07] MEDS: SULFAMETHOXAZOLE/TRIMETHOPRIM DS 800/160MG TAB PO SCH (20:02)
[2021-09-07] MEDS: DOCUSATE SODIUM 100 MG CAP PO SCH (20:04)
[2021-09-07] MEDS ORDERED: ENOXAPARIN INJ 40 MG/0.4 ML SYR SQ SCH (21:00)
[2021-09-07] MEDS: ACETAMINOPHEN 325 MG TAB PO PRN (21:46)
[2021-09-08] MEDS: LACTATED RINGER'S 1,000 ML IV SCH ×2 (03:08→10:45)
--- NOTE | 2021-09-08 06:08 | Electrocardiogram Report ---
Test Reason : Blood Pressure : / mmHG Vent. Rate : 088 BPM Atrial Rate : 088 BPM P-R Int : 166 ms QRS Dur : 146 ms QT Int : 404 ms P-R-T Axes : 060 093 -09 degrees QTc Int : 488 ms Normal sinus rhythm Rightward axis Right bundle branch block Cannot rule out Inferior infarct , age undetermined Abnormal ECG When compared with ECG of 10-JUL-2021 07:36, No significant change Confirmed by Lalo Harris ([id number]) on 09/08/2021 6:07:48 AM Referred By: REFERRED SELF Confirmed By:Lalo Harris
--- NOTE | 2021-09-08 06:17 | Electrocardiogram Report ---
Test Reason : Blood Pressure : / mmHG Vent. Rate : 083 BPM Atrial Rate : 083 BPM P-R Int : 176 ms QRS Dur : 144 ms QT Int : 382 ms P-R-T Axes : 059 095 019 degrees QTc Int : 448 ms Normal sinus rhythm Right bundle branch block T wave abnormality, consider inferior ischemia Abnormal ECG When compared with ECG of 05-SEP-2021 16:38, (unconfirmed) No significant change was found Confirmed by Lalo Harris ([id number]) on 09/08/2021 6:17:17 AM Referred By: REFERRED SELF Confirmed By:Lalo Harris
[2021-09-08] MEDS: LEVOTHYROXINE SODIUM 100 MCG TABLET PO SCH (06:39)
[2021-09-08 07:44] LABS: Basophils # (auto) 0.01 K/uL (0-0.2); Basophils % (auto) 0.2 %; Eosinophils # (auto) 0.21 K/uL (0-0.5); Eosinophils % (auto) 5.1 %; Hematocrit (blood only) 28.8 % (37-47); Hemoglobin 9.6 g/dL (12.0-16.0); Immature Granulocytes # (auto) 0.03 K/uL (0.00-0.02); Immature Granulocytes % (auto) 0.7 %; Lymphocytes # (auto) 0.99 K/uL (1.2-3.4); Lymphocytes % (auto) 23.9 %; Mean Corpuscular Hemoglobin 29.8 pg (25-34); Mean Corpuscular Hgb Conc 33.3 g/dL (32-36); Mean Corpuscular Volume 89.4 fL (80-100); Mean Platelet Volume 11.4 fL (7.4-10.4); Monocytes # (auto) 0.41 K/uL (0.11-0.59); Monocytes % (auto) 9.9 %; Neutrophils # (auto) 2.49 K/uL (1.4-6.5); Neutrophils % (auto) 60.2 %; Platelet Count 174 K/uL (130-400); RDW Coefficient of Variation 13.4 % (11.5-14.5); RDW Standard Deviation 44.4 fL (36.4-46.3); Red Blood Count 3.22 M/uL (4.2-5.4); White Blood Count 4.14 K/uL (4.8-10.8)
[2021-09-08 08:21] LABS: Albumin Level 3.1 gm/dl (3.4-5.0); BUN Creatinine Ratio 23.2 (10-20); Calcium 8.8 mg/dl (8.5-10.1); Creatinine Clr Calc Pharmacy 60.2 ml/min; Est GFR (African American) 60.1 ml/min; Est GFR (Non-African American) 51.9 ml/min; Phosphorus 3.3 mg/dl (2.5-4.9); Potassium 3.7 mmol/L (3.5-5.1)
[2021-09-08] MEDS: MAGNESIUM OXIDE 400 MG TAB PO SCH (08:28)
[2021-09-08] MEDS: VITAMIN B COMPLEX TAB PO SCH (08:28)
[2021-09-08] MEDS: CALCIUM 600MG + VIT D 400 IU TAB PO SCH (08:28)
[2021-09-08] MEDS: PANTOprazole 40 MG TAB PO SCH (08:28)
[2021-09-08] MEDS: DULoxetine HCL 60 MG CAP PO SCH (08:28)
[2021-09-08] MEDS: SULFAMETHOXAZOLE/TRIMETHOPRIM DS 800/160MG TAB PO SCH (08:28)
[2021-09-08] MEDS: ASCORBIC ACID 500 MG TAB PO SCH (08:29)
[2021-09-08] MEDS: GABAPENTIN 100 MG CAP PO SCH (08:29)
[2021-09-08] MEDS: FERROUS SULFATE 325 MG TAB PO SCH (08:29)
--- NOTE | 2021-09-08 11:33 | Discharge Summary ---
Date of Service September 08, 2021 Admission HPI Per Admitting Provider The patient is a 65-year-old female with a past medical history including hypertension, seronegative arthritis, restless leg syndrome, hypertension, hypercholesterolemia, right bundle branch block, cardiac pacemaker presents, CKD stage III, superior mesenteric artery stenosis, left renal artery stenosis, idiopathic peripheral neuropathy, memory deficits, essential tremor, PLMD, chronic venous insufficiency and lumbar radiculopathy. She presents to the emergency department with 3 days of worsening generalized weakness, fevers, chills and shakes. She denies any recent travels or sick exposures. Principal Diagnosis Right pyelonephritis (pansensitive E. coli) Sepsis Discharge Exam Constitutional WD/WN, vitals as above Respiratory normal respiratory effort, lungs clear to auscultation Cardiovascular RRR, no murmur, no edema Gastrointestinal (Abdomen) Inspection/Auscultation: normal bowel sounds Percussion/Palpation: abdomen soft; abdomen nontender, no guarding and abdomen not rigid Musculoskeletal no cyanosis or clubbing, extremities motor strength 5/5 Skin no rashes, warm and dry Neurologic moves all extremities and awake; not confused Psychiatric A+Ox3, euthymic affect Genitourinary no CVA tenderness Discharge Data Allergies Allergy/AdvReac Type Severity Reaction Status Date / Time rifapentine Allergy Intermediate CARDIAC Verified 09/05/21 20:07 ARRHYTHMIA AND RENAL FAILURE rifampin AdvReac cardiac Verified 09/05/21 20:07 arrhymia + renal failure Consultations 09/05/21 20:01 ED Decision to Admit Stat Ordered Studies 09/05/21 20:18 CT abd pelvis IV con only Stat IMPRESSION: 1. Findings suggest cystitis with ascending urinary tract infection/pyelonephritis on the right. Correlate with clinical findings and urinalysis. 2. Nonobstructing left renal calculus. 3. Mild colonic diverticulosis without CT evidence of acute diverticulitis. 4. Additional findings as above. Hospital Course (1) Pyelonephritis of right kidney: Lisa Daugherty is a 65 year old female admitted to [facility] from September 05 - September 08, 2021 due to generalized weakness, fevers and chills. She was diagnosed with sepsis secondary to right sided pyelonephritis. This was initially treated with intravenous Zosyn. Urine culture grew pansensitive E. coli. Antibiotics were switched to Bactrim for a total 14 day course. Antihypertensives were discontinued on admission due to hypotension. Despite improvement of her infection she could not tolerate restarting her usual blood pressure medication therefore these were discontinued. Likely these can be restarted in a stepwise manner on follow-up. She was advised to take a systolic blood pressure at home and follow-up with her primary care doctor in the next 1 to 2 weeks. If increasing leg swelling would recommend restarting her diuretics, if no leg swelling consider restarting losartan. (2) Elevated troponin I level: (3) Status post placement of other cardiac pacemaker: (4) HTN (hypertension): (5) Acute kidney injury superimposed on CKD: (6) Restless leg syndrome: (7) GERD (gastroesophageal reflux disease): (8) Seronegative arthritis: (9) CKD (chronic kidney disease), stage III: (10) Idiopathic peripheral neuropathy: (11) PLMD (periodic limb movement disorder): (12) Hypothyroidism: (13) Memory deficits: Total Time Total Time Spent Total Time Spent (In Minutes): 35 Discharge Plan Discharge Items Patient Disposition: Home - Self-Care Reason For Visit: ELEVATED TROPONIN, UTI, WEAKNESS, SEPSIS Discharge Diagnosis: Pyelonephritis Sepsis Activity: Resume your previous activity Non-emergency contact: Primary Care Provider Call non-emergency contact if: you have any medication questions and your symptoms worsen Follow-up/Referrals: Michael King MD [Primary Care Provider] - 09/15/21 8:00 am Diet: Heart Healthy Addtl Attending Provider Instructions: You were admitted to [facility] from September 05- September 08, 2021 due to generalized weakness, fevers and chills. You were diagnosed with sepsis secondary to right sided pyelonephritis. This was initially treated with broad spectrum antibiotics (Zosyn). Urine culture grew pansensitive E. coli. Antibiotics were switched to Bactrim for a total 14 day course. You are now medically stable for discharge. Of note your blood pressure medication was stopped due to low blood pressure. Unable to restart these on discharge but likely you can restart them on follow up with your primary care physician on follow up. Recommend taking your blood pressure at home at rest and taking these to your follow up appointment to see if they can be restarted. If your systolic blood pressure is consistently above 160 for 2 days recommend calling your PCP this week for advice on which medication to restart. Recommend diuretics if your feet are starting to swell or losartan if no ankle/foot swelling. Pending Studies at Discharge: No Stand-Alone Forms: [facility], Smoking Cessation Medications and DC Order Prescriptions: New sulfamethoxazole-trimethoprim [Bactrim DS] 800-160 mg Tablet 1 tab PO Q12 11 Days Qty: 22 RF: 0 Continued gabapentin 100 mg capsule 100 mg PO TID Qty: 90 RF: 5 duloxetine [Cymbalta] 60 mg capsule,delayed release(DR/EC) 60 mg PO QAM RF: 0 Calcium 600 + D(3) 600 mg calcium- 200 unit Capsule 1 tab PO BID RF: 0 aspirin 81 mg tablet,delayed release (DR/EC) 81 mg PO QPM RF: 0 levothyroxine 100 mcg capsule 100 mcg PO DAILY RF: 0 ferrous sulfate [Feosol] 325 mg (65 mg iron) tablet 325 mg PO DAILY RF: 0 ascorbate calcium (vitamin C) 500 mg tablet 500 mg PO DAILY RF: 0 B-complex with vitamin C Capsule 1 cap PO DAILY RF: 0 Probiotic 3 billion cell Capsule 3,000 mmu cells PO PM RF: 0 digestive enzymes Capsule 1 cap PO TID RF: 0 pantoprazole 40 mg tablet,delayed release (DR/EC) 40 mg PO DAILY RF: 0 docusate sodium [Dulcolax Stool Softener (dss)] 100 mg Capsule 100 mg PO PM RF: 0 magnesium 250 mg Tablet 250 mg PO DAILY RF: 0 ropinirole 1 mg tablet 2 mg PO HS RF: 0 Discontinued triamterene-hydrochlorothiazid 75-50 mg tablet 1 tab PO QAM Qty: 90 RF: 3 hydroxychloroquine [Plaquenil] 200 mg Tablet 200 mg PO .HOLD RF: 0 amlodipine 5 mg tablet 5 mg PO QAM RF: 0 losartan 100 mg tablet 100 mg PO QAM RF: 0 No Action triamterene-hydrochlorothiazid 75-50 mg tablet 1 tab PO QAM RF: 0 Discharge Orders: Discharge Order (Routine); Ordered 09/08/21 Ordered By: Javier Vallecillo Admission Data Admit Date/Time: 09/05/21 22:25 Attending Provider: Javier Vallecillo Admit Provider: Meliton Moroe Primary Care Provider: Michael King Other Providers: Meliton Moore Other Interventions: Discharge Summary Assessment (RN) Last Done: 09/08/21 11:22 Coding Level of Care Code D/C DAY MANAGEMENT >30 MINS Diagnoses Pyelonephritis of right kidney N12 Elevated troponin I level R77.8 Status post placement of other cardiac pacemaker Z95.0 HTN (hypertension) I10 Acute kidney injury superimposed on CKD N17.9; N18.9 Restless leg syndrome G25.81 GERD (gastroesophageal reflux disease) K21.9 Seronegative arthritis M13.80 CKD (chronic kidney disease), stage III N18.3 Idiopathic peripheral neuropathy G60.9 PLMD (periodic limb movement disorder) G47.61 Hypothyroidism E03.9 Memory deficits R41.3
== END 2021-09-08 12:40 | disposition home or self-care (01) | DRG 872 ==
LOC: ED 16:33 → SUATTDRO 22:25 → 2E 22:25 → 3E 09-06 09:08

== ENCOUNTER 2022-01-16 07:47 | Observation (INO) ==
--- NOTE | 2021-12-23 16:23 | PAT Medication Instructions ---
Medication Instructions Date of Service December 23, 2021 Home Medications Medication Instructions Recorded gabapentin 100 mg capsule 100 mg PO TID #90 caps 09/16/21 calcium carbonate 600 mg-vitamin D3 5 mcg (200 unit) capsule (Calcium 600 + D(3)) 1 tab PO BID duloxetine 60 mg capsule,delayed release (Cymbalta) 60 mg PO QAM aspirin 81 mg tablet,delayed release 81 mg PO QPM B-complex with vitamin C 1 cap PO QAM ferrous sulfate 325 mg (65 mg iron) tablet (Feosol) 325 mg PO QAM lactobacillus combination no.4 3 billion cell capsule (Probiotic) 3,000 mmu cells PO PM docusate sodium 100 mg capsule (Dulcolax Stool Softener (docusate)) 100 mg PO PM gabapentin 100 mg capsule 100 mg PO TID ascorbate calcium (vitamin C) 500 mg tablet 1 g PO QAM magnesium 250 mg tablet 500 mg PO QAM levothyroxine 100 mcg capsule 100 mcg PO QDL losartan 100 mg tablet 100 mg PO QAM metoprolol succinate 25 mg tablet,extended release 24 hr 25 mg PO QAM pantoprazole 40 mg tablet,delayed release 40 mg PO HS prednisone 20 mg tablet 20 mg PO TID ropinirole 1 mg tablet 1 mg PO QDL ropinirole 1 mg tablet 2 mg PO HS sulfamethoxazole 800 mg-trimethoprim 160 mg tablet 1 tab PO UD triamterene 37.5 mg-hydrochlorothiazide 25 mg capsule 1 cap PO QAM Continue as directed levothyroxine 100 mcg capsule 100 mcg PO QDL ropinirole 1 mg tablet 1 mg PO QDL sulfamethoxazole 800 mg-trimethoprim 160 mg tablet 1 tab PO UD DO NOT take the morning of surgery calcium carbonate 600 mg-vitamin D3 5 mcg (200 unit) capsule (Calcium 600 + D(3)) 1 tab PO BID B-complex with vitamin C 1 cap PO QAM ferrous sulfate 325 mg (65 mg iron) tablet (Feosol) 325 mg PO QAM ascorbate calcium (vitamin C) 500 mg tablet 1 g PO QAM magnesium 250 mg tablet 500 mg PO QAM losartan 100 mg tablet 100 mg PO QAM triamterene 37.5 mg-hydrochlorothiazide 25 mg capsule 1 cap PO QAM Take morning of surgery With a small sip of water, OTHERWISE NOTHING TO EAT OR DRINK AFTER MIDNIGHT: duloxetine 60 mg capsule,delayed release (Cymbalta) 60 mg PO QAM gabapentin 100 mg capsule 100 mg PO TID metoprolol succinate 25 mg tablet,extended release 24 hr 25 mg PO QAM prednisone 20 mg tablet 20 mg PO TID Take evening before surgery calcium carbonate 600 mg-vitamin D3 5 mcg (200 unit) capsule (Calcium 600 + D(3)) 1 tab PO BID aspirin 81 mg tablet,delayed release 81 mg PO QPM lactobacillus combination no.4 3 billion cell capsule (Probiotic) 3,000 mmu cells PO PM docusate sodium 100 mg capsule (Dulcolax Stool Softener (docusate)) 100 mg PO PM gabapentin 100 mg capsule 100 mg PO TID pantoprazole 40 mg tablet,delayed release 40 mg PO HS prednisone 20 mg tablet 20 mg PO TID ropinirole 1 mg tablet 2 mg PO HS Other Notes If you have any questions please call us at [phone] or [phone] or [phone] or [phone]
--- NOTE | 2021-12-25 09:37 | Anesthesiology Consultation ---
Date of Service December 25, 2021 Assessment & Plan (1) Encounter for pre-operative examination: Chart Review Chart Review: Acceptable Risk for Surgery (pending PCP routine visit 12/31/ if pt optimized for surgery ) and Patient seen in Pre Admission Testing - Pt seeing PCP on 12/31/21 for routine visit- will write note to PCP inquiring if patient is optimized for surgery. Pt on tapering Prednisone dose since beginning of November 2021 Pt is not a OPJ candidate due to health conditions/issues Per PAT appt on 12/25/21, patient denies any recent travel or large group activities. No known Covid positive exposures or Covid related symptoms. No known Covid infection in the past 90 days. Will leave to surgeon's discretion if preop Covid testing needed. Educated on importance of using Covid precautions one week prior to surgery Pt last seen by EP 10/10/21= patient seen for routine follow-up. Has been stable since last visit. Patient admitted September 2021 for right-sided pyelonephritis, E. coli sepsis and hypotension Discharged home in stable fashionpatient has been stable since that time. She has noted brief episodes of paroxysmal SVT several days each week. Sustained palpitations typically last 1 to 2 minutes. This was confirmed on pacemaker interrogation today. Discussed use of vagal maneuvers and addition of low-dose metoprolol succinate. Pt is stable from cardiovascular standpoint. Elevated BP at home- will restart Dyazide. Also will start low dose metoprolol succinate for both BP and her frequent paroxysmal SVT. Pacemaker is functioning properly. Follow up in one year. Left thigh muscle biopsy 07/09/21= Done under [facility] Teaching & Discussion Pre-Anesthesia Teaching/Discussion Notes: Instructed NPO after midnight before surgery,except medications with 15 cc of water. Medication instructions provided according to the PAT guidelines. History Surgery Operation Date: 01/16/22 12:30 Proposed Procedures p Right Total Knee Arthroplasty - Tanmay Arceo DO Height/Weight Height: 5 ft 4.5 in Weight: 102.5 kg Allergies Allergy/AdvReac Type Severity Reaction Status Date / Time rifampin Allergy Intermediate cardiac Verified 12/24/21 12:54 arrhymia + renal failure rifapentine Allergy Intermediate CARDIAC Verified 12/24/21 12:54 ARRHYTHMIA AND RENAL FAILURE Medications Home Medications Medication Instructions Recorded Confirmed Last Taken calcium carbonate 600 mg-vitamin 1 tab PO BID 06/21/18 12/24/21 07/09/21 D3 5 mcg (200 unit) capsule (Calcium 600 + D(3)) duloxetine 60 mg capsule,delayed 60 mg PO QAM 06/24/20 12/24/21 07/09/21 release (Cymbalta) aspirin 81 mg tablet,delayed 81 mg PO QPM 06/19/21 12/24/21 07/09/21 release B-complex with vitamin C 1 cap PO QAM 07/09/21 12/24/21 07/09/21 ferrous sulfate 325 mg (65 mg 325 mg PO QAM 07/09/21 12/24/21 07/09/21 iron) tablet (Feosol) lactobacillus combination no.4 3 3,000 mmu cells PO PM 07/09/21 12/24/21 07/09/21 billion cell capsule (Probiotic) docusate sodium 100 mg capsule 100 mg PO PM 07/10/21 12/24/21 Unknown (Dulcolax Stool Softener (docusate)) gabapentin 100 mg capsule 100 mg PO TID #90 caps 09/16/21 12/24/21 Unknown ascorbate calcium (vitamin C) 500 1 g PO QAM 10/10/21 12/24/21 Unknown mg tablet magnesium 250 mg tablet 500 mg PO QAM 10/10/21 12/24/21 Unknown levothyroxine 100 mcg capsule 100 mcg PO QDL 12/18/21 12/24/21 Unknown losartan 100 mg tablet 100 mg PO QAM 12/18/21 12/24/21 Unknown metoprolol succinate 25 mg 25 mg PO QAM 12/18/21 12/24/21 Unknown tablet,extended release 24 hr pantoprazole 40 mg tablet,delayed 40 mg PO HS 12/18/21 12/24/21 Unknown release prednisone 20 mg tablet 20 mg PO BID 12/18/21 12/25/21 Unknown ropinirole 1 mg tablet 1 mg PO QDL 12/18/21 12/24/21 Unknown ropinirole 1 mg tablet 2 mg PO HS 12/18/21 12/24/21 Unknown sulfamethoxazole 800 1 tab PO UD 12/18/21 12/24/21 Unknown mg-trimethoprim 160 mg tablet triamterene 37.5 1 cap PO QAM 12/18/21 12/24/21 Unknown mg-hydrochlorothiazide 25 mg capsule Past Medical History Medical History (Updated 12/25/21 @ 12:47 by Suzanne Dupont PA-C) Essential tremor Bilateral hands - mild/intermittent GERD (gastroesophageal reflux disease) Well controlled and stable Giant cell arteritis Temporal biopsy was negative, being treated for this as patient reports she had all symptoms. follows with Dr Easley ([facility]) On Predisone x 1.5 months - currently down to Predisone 20mg BID - following with rheum for taper History of COVID-26 JULY 2020>SYMPTOMS MILD (FEELING BETTER) History of recent steroid use Pt currently on tapering Prednisone dose for PMR and giant cell arteritis- Prednisone started around beginning of November 2021 and is continue on tapering dose - recently changed from Prednisone 20mg TID to 20mg BID as of 12/25/21 Hx MRSA infection ~2016 in the finger, dx at [facility]. Osteomyelitis- did have surgery to remove Hx of kidney disease WNL CARLOTA/WAS STAGE 3 Hx of sepsis R/t kidney infection August 2021 and treated at [facility]. Hypercholesterolemia Hypertension Well controlled with addition of Metoprolol Hypothyroidism Interdigital neuroma of foot HX FOOT INJECTIONS *DONE UNDER ANESTHESIA Intractable muscle spasm Patient reports she will have random muscle spasms, unable to have any definitive diagnosis and followed with various physicians, better with the prednisone currently. Myopathy Had negative muscle biopsy Neuropathy Pacemaker INSERTED 2018/recurrent syncope secondary to symptomatic bradycardia. No syncope since pacemaker placement Paroxysmal SVT (supraventricular tachycardia) Stable per patient- recently started on Metoprolol 10/2021 by EP Polymyalgia rheumatica On Prednisone - x 1.5 months Restless legs syndrome Rheumatoid arthritis QUESTIONABLE- SERUM NEGATIVE Right bundle branch block (RBBB) FOLLOWS WITH DR. FERMIN Sleep apnea Noncompliant with CPAP Spinal stenosis of lumbar region Spondylolysis Vascular disease Renal artery stenosis, celiac/SMA stenosis- no intervention felt necessary per 02/05/21 vascular note Per patient- seen at [facility] [place] and felt report was read incorrect and patient has no significant stenosis Exercise / Class Metabolic Activity II 4-5 Yardwork/Stairs/Walk up hill (one flight of stairs- no chest pain or SOB ) Past Family History Family History Grandmother (Maternal) Family history of diabetes mellitus Father Myocardial infarction Lung cancer Hypertension Mother Acute myocardial infarction Hypertension Other No family history of adverse response to anesthesia Denies family history of Ovarian cancer Breast cancer Colorectal cancer Past Surgical History Surgical History Encounter for biopsy (07/09/21) Left Thigh Muscle Biopsy - Solo Parada DO, FACS 07/09/2021 History of bilateral tubal ligation History of breast biopsy aspiration of cyst from left breast benign History of cholecystectomy History of colonoscopy History of dilatation and curettage History of esophagogastroduodenoscopy (EGD) History of hand surgery right finger left hand--I&D History of temporal artery biopsy History of tooth extraction History of total abdominal hysterectomy and bilateral salpingo-oophorectomy Past Anesthesia History No Hx of Anesthesia Complications and No Family Hx of Anesthesia Complications History of PONV No Hx of PONV and No Hx of Motion Sickness Social History Smoking Status: Never smoker Do You Dip or Chew Tobacco: No Hx Alcohol Use: No Hx Substance Use: No substance use type: does not use Review of Systems Chronic palpitations x years- stable Hx of blood transfusion - s/p hysterectomy many years ago (had hematoma) Patient denies chest pain, shortness of breath at rest, cough, wheezing. No hx of seizures, stroke, [place]. No hx of DVT. Physical Exam Vital Signs VITALS BP 146/84 P 69 TEMP 98.2 SP02 95% RESP 16 Constitutional no acute distress ENMT Mouth: no TMJ clicking Thyromental Distance: < 3.5 Finger Breadths (3.0) Mallampati Class: I Missing molars Top front permanent bridge on left side Crowns to top front right teeth Crowns to side teeth Neck + limited neck extension Respiratory normal respiratory effort; no respiratory distress Auscultation: lungs clear to auscultation bilaterally; no wheezes Cardiovascular Rate/Rhythm: regular rate and regular rhythm Heart Sounds: no murmur Vessels: no carotid bruit Heart sounds mildly diminished throughout Musculoskeletal Spine: no pain with cervical ROM Extremities: extremities normal to inspection Psychiatric Orientation: alert Lab Results Anesthesia Preop Results Results Anesthesia Widget: WBC 8.36 K/ul (4.8-10.8) 12/25/21 Hgb 13.1 g/dl (12.0-16.0) 12/25/21 Hct 40.3 % (34.1-44.9) 12/25/21 Plt 242 K/uL (130-400) 12/25/21 Na 139 mmol/L (136-145) 12/25/21 K 4.6 mmol/L (3.5-5.1) 12/25/21 Cl 103 mmol/L (98-107) 12/25/21 CO2 31 mmol/L (21-32) 12/25/21 BUN 39 mg/dl (6-23) H 12/25/21 Creat 1.12 mg/dl (0.6-1.2) 12/25/21 Glucose Level 95 mg/dl (70-99(Fasting)) 12/25/21 PT 10.3 Seconds (9.0-12.0) 12/25/21 PTT 24.5 Seconds (21.0-31.0) 12/25/21 INR 1.0 (0.9-1.1) 12/25/21 TSH 1.884 uIu/ml (0.300-4.500) 11/22/21 Urine Color Yellow 11/23/21 Urine Appearance Clear (Clear) 11/23/21 Urine pH 5.0 (4.5-7.5) 11/23/21 Urine Specific [place] 1.018 (1.000-1.030) 11/23/21 Urine Protein Negative (Negative) 11/23/21 Urine Glucose (UA) Negative (Negative) 11/23/21 Urine Ketones Negative (Negative) 11/23/21 Urine Blood Negative (Negative) 11/23/21 Urine Nitrite Negative (Negative) 11/23/21 Urine Bilirubin Negative (Negative) 11/23/21 Urine Urobilinogen Negative (Negative) 11/23/21 Urine Leukocyte Esterase Trace (Negative) H 11/23/21 Urine WBC (Auto) 5-10 /hpf (0-5) H 11/23/21 Urine RBC (Auto) 0-4 /hpf (0-4) 11/23/21 Urine Hyaline Casts (Auto) 1-5 /lpf (0-5) 11/23/21 Urine Epithelial Cells (Auto) >30 /lpf (0-5) H 11/23/21 Urine Bacteria (Auto) Negative (Negative) 11/23/21 Blood Type A Positive 12/25/21 Antibody Screen NEGATIVE 12/25/21 Testing Electrocardiogram Date: 11/22/21 Findings: + NSR @ (69bpm ) RBBB. T wave abnormality, consider inferior ischemia When compared to EKG from September 06, 2021- no significant change was found (T wave abnormality present since at least 07/2020) Chest X-Ray Date: 11/23/21 FINDINGS: An AP, portable, upright chest radiograph is compared to study dated 09/05/2021 and correlated with chest CT dated 10/18/2020. A 2-lead cardiac pacemaker is unchanged in position and partially obscures left lung base. The heart is mildly enlarged noting atherosclerotic calcification of the thoracic aorta. The pulmonary vasculature is noncongested. Chronic interstitial thickening and elevation of the right hemidiaphragm is similar to previous. There is mild bibasilar scarring/atelectasis. The lungs and pleural spaces are otherwise clear. No pneumothorax is seen. The skeletal structures are osteopenic. The bony thorax is grossly intact. Cholecystectomy clips are seen in the right upper quadrant. IMPRESSION: 1. Cardiomegaly and cardiac pacemaker with no radiographic evidence of congestive failure. 2. No airspace consolidation or large pleural effusion is identified. Echocardiogram Date: 12/24/18 EF: 55-60% LV Function: normal RWMA: + none Other Findings: no LVH Left atrium is mildly dilated. Stress Test Date: 12/10/20 Impression: 1. Negative myocardial perfusion study for ischemia. 2. Very small fixed apical defect may represent artifact given normal wall motion. 3. Normal LV systolic function. EF 68%. 4. No reported symptoms. 5. Nondiagnostic Lexiscan ECG. Other Testing Pacemaker check 10/25/21 = Medtronic pacemaker. Battery status okay3.03 V. Atrial paced 13.23%. Ventricular paced 9.56%. Presenting rhythm: Atrial sensingventricular sensing. 2 Fast A&V episodes, longest episode on 10/12/2021 for approximately 20 seconds, average AV rate 167/167 bpm. EGM's illustrate nonsustained SVT. Histogram shows heart rate predominantly 60-100 bpm. Brain MRI 11/27/20= No acute intracranial findings. No evidence of intracranial mass. No evidence of acute or subacute infarction. Minor scattered foci of increased T2 and FLAIR signal within the white matter, likely on a small vessel basis, and not unusual for age Abdomen/Pelvis CTA 10/09/20= Right renal artery is patent. Calcified plaque at the origin of the left renal artery associated with its mild stenosis. Complete occlusion of the proximal aspect of this celiac artery and reconstitution of the flow within its mid and distal portion. These findings could be due to partially calcified plaque or medial arcuate syndrome. 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 Distal branches of superior mesenteric artery are normal in caliber and opacification. Nonobstructive nephrolithiasis on the left. Diffuse diverticulosis of sigmoid colon.
--- NOTE | 2022-01-15 07:38 | History & Physical Report ---
Date of Service January 15, 2022 Assessment & Plan (1) Osteoarthritis of right knee: We will proceed with a right total knee arthroplasty. Postoperatively she will be started on aspirin for DVT prophylaxis and kept overnight in the hospital for postoperative medical management. She plans to use energy physical therapy upon discharge. History of Present Illness Chief Complaint: Osteoarthritis of the right knee. Primary Care Provider: Michael King MD Lisa is a 66-year-old female who has been having about a 6- to 7-month history of increasing right knee pain. She initially had an injury back in April where she had fallen and twisted her knee. Since then most of the pain has been over the medial compartment of the knee. She does have neuropathy and sustained a second fall in the spring which really exacerbated the knee. She is having a difficult time bending, squatting, and walking, going up and down stairs. X-rays have shown osteoarthritis of the right knee. After failing conservative treatment, she has elected proceed with a right total knee arthroplasty. Allergies Allergy/AdvReac Type Severity Reaction Status Date / Time rifampin Allergy Intermediate cardiac Verified 12/31/21 10:09 arrhymia + renal failure Home Medications Medication Instructions Recorded Confirmed Type calcium carbonate 600 mg-vitamin 1 tab PO BID 06/21/18 12/24/21 History D3 5 mcg (200 unit) capsule (Calcium 600 + D(3)) duloxetine 60 mg capsule,delayed 60 mg PO QAM 06/24/20 12/24/21 History release (Cymbalta) aspirin 81 mg tablet,delayed 81 mg PO QPM 06/19/21 12/24/21 History release B-complex with vitamin C 1 cap PO QAM 07/09/21 12/24/21 History ferrous sulfate 325 mg (65 mg 325 mg PO QAM 07/09/21 12/24/21 History iron) tablet (Feosol) lactobacillus combination no.4 3 3,000 mmu cells PO PM 07/09/21 12/24/21 History billion cell capsule (Probiotic) docusate sodium 100 mg capsule 100 mg PO PM 07/10/21 12/24/21 History (Dulcolax Stool Softener (docusate)) ascorbate calcium (vitamin C) 500 1 g PO QAM 10/10/21 12/24/21 History mg tablet magnesium 250 mg tablet 500 mg PO QAM 10/10/21 12/24/21 History levothyroxine 100 mcg capsule 100 mcg PO QDL 12/18/21 12/24/21 History losartan 100 mg tablet 100 mg PO QAM 12/18/21 12/24/21 History metoprolol succinate 25 mg 25 mg PO QAM 12/18/21 12/24/21 History tablet,extended release 24 hr pantoprazole 40 mg tablet,delayed 40 mg PO HS 12/18/21 12/24/21 History release prednisone 20 mg tablet 20 mg PO BID 12/18/21 12/25/21 History sulfamethoxazole 800 1 tab PO UD 12/18/21 12/24/21 History mg-trimethoprim 160 mg tablet gabapentin 100 mg capsule 100 mg PO TID #270 caps 12/31/21 12/31/21 Rx ropinirole 1 mg tablet See Rx Instructions PO HS #270 tabs 12/31/21 12/31/21 Rx triamterene 37.5 1 cap PO BID #180 caps 12/31/21 12/31/21 Rx mg-hydrochlorothiazide 25 mg capsule Past Med/Surg History Medical History Essential tremor Bilateral hands - mild/intermittent GERD (gastroesophageal reflux disease) Well controlled and stable Giant cell arteritis Temporal biopsy was negative, being treated for this as patient reports she had all symptoms. follows with Dr Easley ([facility]) On Predisone x 1.5 months - currently down to Predisone 20mg BID - following with rheum for taper History of COVID-26 JULY 2020>SYMPTOMS MILD (FEELING BETTER) History of recent steroid use Pt currently on tapering Prednisone dose for PMR and giant cell arteritis- Prednisone started around beginning of November 2021 and is continue on tapering dose - recently changed from Prednisone 20mg TID to 20mg BID as of 12/25/21 Hx MRSA infection ~2016 in the finger, dx at [facility]. Osteomyelitis- did have surgery to remove Hx of kidney disease WNL JUNIORY/WAS STAGE 3 Hx of sepsis R/t kidney infection August 2021 and treated at [facility]. Hypercholesterolemia Hypertension Well controlled with addition of Metoprolol Hypothyroidism Interdigital neuroma of foot HX FOOT INJECTIONS *DONE UNDER ANESTHESIA Intractable muscle spasm Patient reports she will have random muscle spasms, unable to have any definitive diagnosis and followed with various physicians, better with the prednisone currently. Myopathy Had negative muscle biopsy Neuropathy Pacemaker INSERTED 2019/recurrent syncope secondary to symptomatic bradycardia. No syncope since pacemaker placement Paroxysmal SVT (supraventricular tachycardia) Stable per patient- recently started on Metoprolol 10/2021 by EP Polymyalgia rheumatica On Prednisone - x 1.5 months Restless legs syndrome Rheumatoid arthritis QUESTIONABLE- SERUM NEGATIVE Right bundle branch block (RBBB) FOLLOWS WITH DR. FERMIN Sleep apnea Noncompliant with CPAP Spinal stenosis of lumbar region Spondylolysis Vascular disease Renal artery stenosis, celiac/SMA stenosis- no intervention felt necessary per 02/05/21 vascular note Per patient- seen at [facility] afterwards and felt report was read incorrect and patient has no significant stenosis Surgical History Encounter for biopsy (07/09/21) Left Thigh Muscle Biopsy - Solo Parada DO, FACS 07/09/2021 History of bilateral tubal ligation History of breast biopsy aspiration of cyst from left breast benign History of cholecystectomy History of colonoscopy History of dilatation and curettage History of esophagogastroduodenoscopy (EGD) History of hand surgery right finger left hand--I&D History of temporal artery biopsy History of tooth extraction History of total abdominal hysterectomy and bilateral salpingo-oophorectomy Family History Grandmother (Maternal) Family history of diabetes mellitus Father Myocardial infarction Lung cancer Hypertension Mother Acute myocardial infarction Hypertension Other No family history of adverse response to anesthesia Denies family history of Ovarian cancer Breast cancer Colorectal cancer Social History Smoking Status: Never smoker Second Hand Exposure: Yes (parents smoked); Hx Alcohol Use: No Hx Substance Use: No Preferred Language: Chilean Communication Ability: Effective Visual Impairment: No Limitations Glass Vial Filler Required: No Beliefs That Will Affect Care: None marital status: Current Living Situation: Spouse Current Living Situation Comment: lives with current occupational status: employed and retired How many Children do You have: 2 Feels Safe at Home: Yes Childhood Exposure to Second-Hand Smoke: Yes Diet Comment: low dairy caffeine: Yes during the past year weight has: increased > 10 lbs Dental Care, Regularly: Yes Physical Activity Frequency: Daily Seatbelt Use: always Assistive Devices: CPAP and Glasses Review of Systems All systems reviewed & are unremarkable except as noted in HPI & below. Physical Exam On physical examination of the right knee, she has a trace effusion. She has near full range of motion from 0 to 120 degrees. She has pain of the distal medial femoral condyle and over the medial joint line.. Constitutional WD/WN, vitals as above Eyes PERRL, conjunctivae normal, anicteric sclerae ENMT external ear and nose normal, oropharynx normal Neck trachea midline, no thyromegaly Respiratory normal respiratory effort, lungs clear to auscultation Cardiovascular RRR, no murmur, no edema Gastrointestinal (Abdomen) normal bowel sounds, soft, nontender, no hepatosplenomegaly Skin no rashes, warm and dry Psychiatric A+Ox3, euthymic affect Results & Data Results & Data Laboratory Results . Diagnostic Findings X-rays of the right knee do show osteoarthritis with joint space narrowing and osteophyte formation.. PG Care Time/CCT Total # of Minutes Spent Total Time Spent with Patient: Total time spent is greater than 50% in coordination of care (as documented) at patient's floor/unit and/or counseling patient: Coding Level of Care Code None Diagnoses Osteoarthritis of right knee M17.11
[~2022-01-16 07:47] MED LIST changes: +ACETAMINOPHEN 500 MG TAB PO SCH; +BUPIVACAINE 0.25% 30 ML VIAL ONE; +BUPIVACAINE 0.5 % 5 MG/1 ML PF 10ML VIAL ONE; -CALC600T37 PO; -CHOL1000 PO; -CYM/30 PO; +FAMOTIDINE 20 MG TAB PO SCH; +GABAPENTIN 300 MG CAP PO SCH; -HYDR0.5T PO; +Ketorolac (*for OR use only*) 30 MG, dexAMETHasone 4 MG, KETAMINE HCL (**OR use only) 1... INFIL SCH; +LR 500ML BOLUS, THEN 15ML/HR IV SCH; +LR 60ML/HR IV SCH; -MELO7.5T6 PO; -PANT40TA PO; -TELM40TA11 PO; +TRANEXAMIC ACID 1,000 MG **IV Intra-op IV SCH; +TRANEXAMIC ACID 1,000 MG **IV Pre-op IV SCH; -TRIA37.5 PO; +ceFAZolin 2000MG 2,000 MG/15 ML SYR IV SCH; +dexAMETHasone 4 MG TAB PO SCH
[2022-01-16] MEDS ORDERED: MIDAZOLAM HCL 1 MG/ML 2ML VIAL ONE (09:00)
[2022-01-16] MEDS ORDERED: KETAMINE 50 MG/5 ML SYRINGE ONE (09:00)
--- NOTE | 2022-01-16 09:26 | History & Physical Bridge Note ---
Date of Service January 16, 2022 History & Physical Bridge Note I have examined the patient, reviewed the History & Physical and in the interval since the performance of the History & Physical I have noted the following changes of clinical significance: no changes noted
[2022-01-16] MEDS ORDERED: ORTHO JOINT ANESTHETIC ONE (09:58)
[2022-01-16] MEDS ORDERED: fentaNYL citrate 100 MCG/2 ML VIAL IV PRN (10:25)
[2022-01-16] MEDS ORDERED: ONDANSETRON INJ 2 MG/ML 2 ML VIAL IV PRN ×2 (10:25→14:40)
[2022-01-16] MEDS ORDERED: ATROPINE SULFATE 0.1 MG/ML 10ML SYR IV PRN (10:25)
[2022-01-16] MEDS ORDERED: ePHEDrine sulfate 50 MG/ML AMP IV PRN (10:25)
[2022-01-16] MEDS ORDERED: fentaNYL citrate 100 MCG/2 ML VIAL ONE (10:34)
[2022-01-16] MEDS ORDERED: GLYCOPYRROLATE 0.2 MG/ML VIAL ONE (10:56)
[2022-01-16] MEDS ORDERED: ONDANSETRON INJ 2 MG/ML 2 ML VIAL ONE (10:56)
[2022-01-16] MEDS ORDERED: HYDROCORTISONE SOD SUCCINATE 100 MG/2 ML VIAL ONE (10:56)
[2022-01-16] MEDS ORDERED: PROPOFOL IV EMULSION 10 MG/ML 20 ML VIAL IV ONE ×3 (10:56→11:02)
[2022-01-16] MEDS ORDERED: LIDOCAINE 2% MPF LOCAL 5 ML VIAL INFIL ONE (10:56)
[2022-01-16] MEDS ORDERED: KETOROLAC 30 MG/ML VIAL ONE (11:02)
[2022-01-16] MEDS ORDERED: PHENYLEPHRINE HCL 10 MG/ML VIAL ONE (11:02)
[2022-01-16] MEDS ORDERED: ePHEDrine sulfate 50 MG/ML AMP ONE (11:02)
[2022-01-16] MEDS ORDERED: DEXAMETHASONE SOD INJ 4 MG/ML VIAL ONE (11:02)
--- NOTE | 2022-01-16 12:06 | Operative Report ---
PG Post Operative Report Pre & Post Diagnosis Operation Date: 01/16/22 10:35 Pre-Op Diagnosis: Right Knee Degenerative Joint Disease Post-Op Diagnosis: Right Knee Degenerative Joint Disease I identified the patient and participated in the time-out.: Yes Procedure Operation Date: 01/16/22 10:35 Actual Procedures p Right Total Knee Arthroplasty(Right) - Tanmay Arceo DO Surgeon Tanmay Arceo DO Nurse Special Tanmay Waller PA-C Estimated Blood Loss 30 Findings Consistent with Post-Op Diagnosis Specimens Right femoral and tibial bone Description of Procedure Implants used: I used a Zarina Persona total knee arthroplasty system with a size 7 narrow femur, D tibia, 31 oval patella, and a size 12 medial congruent polyethylene bearing. All components were cemented in place with Biomet cement. Lisa arrived [facility] for the above procedure. She was seen in the preoperative holding area and the operative extremity was identified and signed. She was given a preoperative antibiotic, TXA, and an adductor nerve block. She was taken back to the operating room and laid on the table in supine position. She was given general anesthesia. The operative knee was then prepped and draped in sterile fashion. A timeout was done, and the patient and the operative extremity was properly identified. A midline incision was made directly over the patella. Dissection was taken down to the extensor mechanism. A subvastus arthrotomy was used. The medial retinaculum was released and the fat pad was mostly excised. The knee was flexed and the ACL, PCL, and meniscus were removed. A drill was sent down the center of the femoral canal followed by an intramedullary marielos. Off that marielos a distal femoral cutting block was placed. 9 mm was resected off the distal femur at 5 of valgus. A posterior referencing AP sizing guide was then placed on the distal femur. The femur measured to be a size 7. 2 drill holes were placed in 3 of external rotation. A 4-in-1 cutting block was then impacted into place. Anterior, posterior, and chamfer cuts were then made. The proximal tibia was then exposed. An external tibial alignment guide was placed. A tibial cut guide was then anchored in place and the proximal tibia was then resected. The posterior aspect of the knee was then opened up and any additional meniscus fragments and osteophytes were removed. The tibia measured to be a size D. The tibial plate was then placed in the appropriate rotation and the tibia was drilled and punched. Trial components were then placed. I used a size 12 medial congruent polyethylene insert. The knee was brought through a full range of motion and felt to be stable. The peg holes for the femoral component were then drilled. The patella was then everted and 9 mm was resected off the posterior aspect of the patella. The patella measured to be a size 31 oval. 3 peg holes were then drilled. A trial patella was placed. The knee was once again brought through a full range of motion and felt to be stable. Trial components were then removed. The surrounding soft tissues were injected with 100 cc of an orthopedic pain control cocktail. All components were then cemented into place with Biomet cement. The final polyethylene insert was then snapped into place. Once cement was dry the tourniquet was deflated. Hemostasis was obtained. A dilute betadyne lavage was then done for 3 minutes. The joint was then irrigated with normal saline solution. The subvastus arthrotomy was then closed with #1 Vicryl suture. The skin was closed with 2-0 Vicryl, 3-0V lock suture, and caridad. A soft compressive dressing was placed. She was then transferred to a hospital bed and taken to the postanesthesia care unit in stable condition. She tolerated the procedure well. Tanmay Waller PA-C, was present for the entire procedure. He was critical for patient positioning, prepping, draping, retraction exposure, wound closure and application of sterile dressing. I attest to the content of the Intraoperative Record and any orders documented therein. Any exceptions are noted below.
--- NOTE | 2022-01-16 13:00 | XRay Report ---
XR knee RT 1 or 2V routine HISTORY: 66 years-old Female Surgical Post Op right knee total joint arthroplasty COMPARISON: 04/24/2021 TECHNIQUE: 2 views of the right knee FINDINGS: Total joint arthroplasty with patellar resurfacing. Anterior midline skin caridad with expected posto perative soft tissue swelling and deep tissue air. No acute fracture, dislocation or unexpected opaqu e foreign body. IMPRESSION: Total joint arthroplasty with expected postoperative changes. ACT 112: Negative or not required by law. The above report was generated using voice recognition software. It may contain grammatical, syntax o r spelling errors. Electronically signed by: Blake Strong M.D. 01/16/2022 12:58 PM
--- NOTE | 2022-01-16 13:13 | Anesthesiology Progress Note ---
Date of Service January 16, 2022 Anesthesia Post Procedure Vital Signs Vital Signs: Temp Pulse Pulse Resp BP Pulse Ox O2 Del Method 01/16/22 13:10 73 20 150/63 H 95 Room Air 01/16/22 13:00 78 12 156/58 H 95 Room Air 01/16/22 12:50 73 15 155/69 H 97 Room Air 01/16/22 12:40 74 13 151/65 H 100 Room Air 01/16/22 12:30 74 20 154/67 H 100 Oxymask 01/16/22 12:20 36.8 C 76 20 147/66 H 100 Oxymask 01/16/22 08:17 36.7 C 72 18 182/88 H 97 Room Air O2 Flow Rate 01/16/22 13:10 01/16/22 13:00 01/16/22 12:50 01/16/22 12:40 01/16/22 12:30 10 01/16/22 12:20 10 01/16/22 08:17 Pain Intensity Right Knee: Pain Intensity: 2 Transfer of Care Handoff Completed per policy Notes Mental Status: alert / awake / arousable and participated in evaluation Patient Amnestic to Procedure: Yes Nausea / Vomiting: adequately controlled Pain: adequately controlled Airway Patency, RR, SpO2: stable & adequate BP & HR: stable & adequate Hydration State: stable & adequate Anesthetic Complications: no major complications apparent and Pt Satisfied with anesthetic care
[2022-01-16] MEDS ORDERED: METOCLOPRAMIDE HCL INJ 5 MG/ML 2 ML VIAL IV PRN (14:40)
[2022-01-16] MEDS ORDERED: bisacodyL 10 MG SUPP PR PRN (14:40)
[2022-01-16] MEDS ORDERED: HYDROmorphone INJ 0.5 MG/0.5 ML SYR IV PRN (14:40)
[2022-01-16] MEDS ORDERED: oxyCODONE HCL IR 5 MG TAB (IMMEDIATE RELEASE) PO PRN (14:40)
[2022-01-16] MEDS ORDERED: NALOXONE HCL 0.4 MG/1 ML VIAL/CARP IV PRN (14:40)
[2022-01-16] MEDS ORDERED: MAGNESIUM HYDROXIDE SUSP 30 ML UDC PO PRN (14:40)
[2022-01-16] MEDS ORDERED: SULFAMETHOXAZOLE/TRIMETHOPRIM DS 800/160MG TAB PO SCH (15:30)
[2022-01-16] MEDS ORDERED: rOPINIRole HCL 1 MG TABLET PO SCH ×2 (15:30→21:00)
[2022-01-16] MEDS: SODIUM CHLORIDE 0.9% 1000ML 1,000 ML IV SCH (15:38)
[2022-01-16] MEDS: ACETAMINOPHEN 500 MG TAB PO SCH ×2 (15:39→23:01)
[2022-01-16] MEDS: GABAPENTIN 100 MG CAP PO SCH ×2 (16:01→20:54)
[2022-01-16] MEDS ORDERED: LEVOTHYROXINE SODIUM 100 MCG TABLET PO SCH (16:30)
[2022-01-16] MEDS: KETOROLAC 30 MG/ML VIAL IV SCH ×2 (17:28→23:01)
[2022-01-16] MEDS: ceFAZolin 2000MG 2,000 MG/15 ML SYR IV SCH (19:17)
[2022-01-16] MEDS: DOCUSATE SODIUM 100 MG CAP PO SCH (20:51)
[2022-01-16] MEDS: ASPIRIN 81 MG ECTAB PO SCH (20:51)
[2022-01-16] MEDS: TRIAMTERENE/HCTZ 37.5/25MG CAP PO SCH (20:51)
[2022-01-16] MEDS: predniSONE 20 MG TAB PO SCH (20:52)
[2022-01-16] MEDS ORDERED: SENNA 8.6 MG TAB PO SCH (21:00)
[2022-01-17] MEDS: SODIUM CHLORIDE 0.9% 1000ML 1,000 ML IV SCH (00:12)
[2022-01-17] MEDS: ceFAZolin 2000MG 2,000 MG/15 ML SYR IV SCH (03:44)
[2022-01-17] MEDS: ACETAMINOPHEN 500 MG TAB PO SCH (05:36)
[2022-01-17] MEDS: KETOROLAC 30 MG/ML VIAL IV SCH ×2 (05:36→11:10)
[2022-01-17] MEDS ORDERED: dexAMETHasone 4 MG TAB PO SCH (08:00)
--- NOTE | 2022-01-17 08:52 | Orthopedic Progress Note ---
Date of Service January 17, 2022 Assessment & Plan (1) Status post right knee replacement: Overall she is doing very well. She is having much pain in her right knee. She will be seen by physical therapy today for ambulation and range of motion exercises. She is on aspirin for DVT prophylaxis. She can be discharged home later today. She will follow-up with orthopedics in 2 weeks. Ana Laura Gonzalez was seen and examined at bedside this morning. Overall she is doing very well. She is not having any pain in the right knee. She has been up and ambulating to the bathroom. She has no complaints.. Review of Systems All systems reviewed & are unremarkable except as noted in HPI & below. Physical Exam On physical examination of the right knee, the dressing is clean and dry. Her leg is out full extension. She has active dorsiflexion plantarflexion of her right ankle.. Results & Data Results & Data Laboratory Results . Diagnostic Findings Postoperative x-rays of the right knee show the prosthesis to be in anatomic alignment without any evidence of fracture, desiccation, or loosening.. PG Care Time/CCT Total # of Minutes Spent Total Time Spent with Patient: Total time spent is greater than 50% in coordination of care (as documented) at patient's floor/unit and/or counseling patient: Coding Level of Care Code 57265 Post Operative Follow-Up Diagnoses Status post right knee replacement Z96.651
--- NOTE | 2022-01-17 08:54 | Discharge Summary ---
Date of Service January 17, 2022 Admission HPI (Per Admitting) Lisa is a 66-year-old female who has been having about a 6- to 7-month history of increasing right knee pain. She initially had an injury back in April where she had fallen and twisted her knee. Since then most of the pain has been over the medial compartment of the knee. She does have neuropathy and sustained a second fall in the spring which really exacerbated the knee. She is having a difficult time bending, squatting, and walking, going up and down stairs. X-rays have shown osteoarthritis of the right knee. After failing conservative treatment, she has elected proceed with a right total knee arthroplasty. Admission Exam (Per Admitting) On physical examination of the right knee, she has a trace effusion. She has near full range of motion from 0 to 120 degrees. She has pain of the distal medial femoral condyle and over the medial joint line.. Principal Diagnosis Same as "Discharge Diagnosis" noted below under Discharge Instructions. Discharge Exam On physical examination of the right knee, the dressing is clean and dry. Her leg is out full extension. She has active dorsiflexion plantarflexion of her right ankle.. Discharge Data Procedures Performed Operation Date: 01/16/22 10:35 Actual Procedures p Right Total Knee Arthroplasty(Right) - Tanmay Arceo DO Ordered Studies 01/16/22 05:00 US - OR guided needle placemen Routine Hospital Course (1) Status post right knee replacement: On January 16, 2022 Lisa arrived at [facility] and underwent a right knee replacement without complication. She had a general anesthetic. Postoperatively she was started on aspirin for DVT prophylaxis and transferred to the general orthopedic floors. Her hospital course was uneventful. On postop day #1, her vital signs were stable and her pain was well controlled. She was able to participate well with physical therapy doing ambulation and range of motion exercises. She was then discharged home. She will follow-up with orthopedics in 2 weeks. PG Care Time/CCT Total # of Minutes Spent Total Time Spent with Patient: Total time spent is greater than 50% in coordination of care (as documented) at patient's floor/unit and/or counseling patient: Discharge Plan Discharge Items Patient Disposition: Home - Home Health Services Reason For Visit: POST OP Discharge Diagnosis: Right knee replacement Activity: Per Instructions section Non-emergency contact: Surgeon Call non-emergency contact if: your wound has increased redness and your wound has increased drainage Follow-up/Referrals: Michael King MD [Primary Care Provider] - Diet: Regular Addtl Attending Provider Instructions: Activity and Therapy Recommendations: * If you are using [facility] then therapy will be provided at your home until they feel you have accomplished all of your goals. * If you are using [facility] then Physical Therapy will be provided until they feel you are ready to start Outpatient Physical Therapy. * If you are not using home therapy then Outpatient Physical Therapy should start about 3-5 days from your day of surgery. Therapy will last about 6-10 weeks * It is important not to put a pillow under your knee when you are relaxing or sleeping. It is just as important to make sure you are getting your knee perfectly straight as it is to regain your knee bend. * You were shown a series of exercises in the hospital. Do these exercises three times each day including the exercises you were shown in physical therapy. * Get up and walk several times each day. For the first four weeks, try not to stand or walk for more than one hour at a time. If you do stand or walk for more than one hour, you will not hurt anything, but your leg will likely swell. * As you feel comfortable, you may change from the walker or crutches to a cane and then to independent walking. Medications: * Narcotic You will likely be sent home from the hospital with a prescription for the narcotic pain medication that worked best throughout your stay. * Aspirin Most patients will be required to take Aspirin 81mg twice a day for 6 weeks after surgery. This is obtained [id number] and a prescription is not necessary. * Other medications may be prescribed for specific circumstances. If you have any questions, please call the office at . * Resume previous home medications unless otherwise instructed TEDs/Elastic Stockings: The white elastic stockings help limit swelling and prevent blood clots from forming in your legs.~ The more you wear them, the more they work. Wear them for six weeks. Dressing Care: The dressing can be changed after physical therapy on postop day #1. Daily dry dressing changes for a few days, especially if the incision is still draining some. If the incision is not draining then you may leave the caridad open to air. If there is a little bit of drainage or if the caridad are getting stuck on your clothing then cover the incision with a dry dressing. The caridad will be removed at your 2 week follow-up appointment. Showering: You may shower 5 days from the day of surgery as long as the incision is no longer draining. You may shower with the caridad exposed. Let soapy water run over the caridad and pat them dry. Do not scrub or soak the incision. Things To Watch For: * Drainage from the incision site that occurs more than one week after your surgery. * Increased redness at the incision site. * Fever above 102 degrees Fahrenheit. * Unusual chest pain or shortness of breath. * Call [facility] at with any of the above problems Follow-Up Visit: Follow-up with Dr. Arceo's PA (Tanmay Waller) 2-3 weeks after your day of surgery. He will remove your caridad and answer any questions. If you have any additional questions or concerns, Dr Arceo is usually in the office at the same time and will be available An appointment was probably scheduled when you signed-up for surgery in the office. If you have any questions call Office Instructions: More detailed instructions as well as Frequently Asked Questions were provided in a folder by our office when you signed-up for surgery. Please review these instructions when you get home. If you have any further questions or concerns, please feel free to call the office at [phone] Pending Studies at Discharge: No Stand-Alone Forms: My [facility] Medications and DC Order Prescriptions: New oxycodone-acetaminophen 5-325 mg tablet 1 tab PO Q6H PRN (Reason: pain) Qty: 30 0RF Continued ropinirole 1 mg tablet See Rx Instructions PO HS Qty: 270 3RF Rx Instructions: 1 mg each afternoon and 2 mg a bedtime orally at bedtime; gabapentin 100 mg capsule 100 mg PO TID Qty: 270 3RF triamterene-hydrochlorothiazid 37.5-25 mg capsule 1 cap PO BID Qty: 180 0RF duloxetine [Cymbalta] 60 mg capsule,delayed release(DR/EC) 60 mg PO QAM Label Comments: TAKES FOR PAIN Calcium 600 + D(3) 600 mg calcium- 200 unit Capsule 1 tab PO BID ferrous sulfate [Feosol] 325 mg (65 mg iron) tablet 325 mg PO QAM Label Comments: TAKING DAILY ONLY QAM B-complex with vitamin C Capsule 1 cap PO QAM Probiotic 3 billion cell Capsule 3,000 mmu cells PO PM ascorbate calcium (vitamin C) 500 mg tablet 1 g PO QAM docusate sodium [Dulcolax Stool Softener (dss)] 100 mg Capsule 100 mg PO PM magnesium 250 mg tablet 500 mg PO QAM pantoprazole 40 mg tablet,delayed release (DR/EC) 40 mg PO HS metoprolol succinate 25 mg tablet extended release 24 hr 25 mg PO QAM losartan 100 mg tablet 100 mg PO QAM levothyroxine 100 mcg capsule 100 mcg PO QDL Label Comments: TAKES AT 3PM prednisone 20 mg Tablet 20 mg PO BID sulfamethoxazole-trimethoprim 800-160 mg Tablet 1 tab PO UD Rx Instructions: 1 tablet 3x week (wednesday, wednesday, wednesday) Changed aspirin 81 mg tablet,delayed release (DR/EC) 81 mg PO BID 42 Days Qty: 0 0RF Discharge Orders: Discharge Order (Routine); Ordered 01/17/22 Ordered By: Tanmay Arceo Admission Data Admit Date/Time: 01/16/22 12:21 Attending Provider: Tanmay Arceo Admit Provider: Tanmay Arceo Primary Care Provider: Michael King
[2022-01-17] MEDS ORDERED: MULTIVITAMIN TAB PO SCH (09:00)
[2022-01-17] MEDS ORDERED: METOPROLOL SUCC 25MG EXT REL TAB PO SCH (09:00)
[2022-01-17] MEDS ORDERED: DULoxetine HCL 60 MG CAP PO SCH (09:00)
[2022-01-17] MEDS ORDERED: LOSARTAN POTASSIUM 50 MG TAB PO SCH (09:00)
[2022-01-17] MEDS: GABAPENTIN 100 MG CAP PO SCH (09:32)
[2022-01-17] MEDS: TRIAMTERENE/HCTZ 37.5/25MG CAP PO SCH (09:32)
[2022-01-17] MEDS: predniSONE 20 MG TAB PO SCH (09:32)
[2022-01-17] MEDS: ASPIRIN 81 MG ECTAB PO SCH (09:33)
[2022-01-17] MEDS: DOCUSATE SODIUM 100 MG CAP PO SCH (09:33)
[2022-01-17] MEDS ORDERED: LEVOTHYROXINE SODIUM 100 MCG TABLET PO SCH (11:30)
== END 2022-01-17 13:44 | disposition home health service (06) ==
LOC: PACUINP 07:47 → ASU 07:47 → 3W 14:33

== ENCOUNTER 2022-03-11 08:19 | Observation (INO) ==
--- NOTE | 2022-03-11 10:09 | Emergency Department Note ---
History of Present Illness General Chief complaint: Back Injury/Pain Stated complaint: BACK PAIN, REFERRED BY DR Montemayor Seen by Provider: 03/11/22 08:58 History of Present Illness Maximum Pain Intensity: 8 66-year-old female presents to the ED with a chief complaint of back pain that radiates around the front down her legs. She also reports some sensory decrease in her feet. She states that she has had some recent falls due to the decreased sensation. Because of her ongoing and recently worsening pain, she came to the ED for evaluation. Denies any abdominal pains. No nausea vomiting. No urinary symptoms. No bowel or bladder dysfunction. Home Medications Medication Instructions Recorded Confirmed Type calcium carbonate 600 mg-vitamin 1 tab PO BID 06/21/18 02/24/22 History D3 5 mcg (200 unit) capsule (Calcium 600 + D(3)) duloxetine 60 mg capsule,delayed 60 mg PO QAM 06/24/20 02/24/22 History release (Cymbalta) B-complex with vitamin C 1 cap PO QAM 07/09/21 02/24/22 History ferrous sulfate 325 mg (65 mg 325 mg PO QAM 07/09/21 02/24/22 History iron) tablet (Feosol) lactobacillus combination no.4 3 3,000 mmu cells PO PM 07/09/21 02/24/22 History billion cell capsule (Probiotic) docusate sodium 100 mg capsule 100 mg PO PM 07/10/21 02/24/22 History (Dulcolax Stool Softener (docusate)) ascorbate calcium (vitamin C) 500 1 g PO QAM 10/10/21 02/24/22 History mg tablet magnesium 250 mg tablet 500 mg PO QAM 10/10/21 02/24/22 History levothyroxine 100 mcg capsule 100 mcg PO QDL 12/18/21 02/24/22 History losartan 100 mg tablet 100 mg PO QAM 12/18/21 02/24/22 History pantoprazole 40 mg tablet,delayed 40 mg PO HS 12/18/21 02/24/22 History release gabapentin 100 mg capsule 100 mg PO TID #270 caps 12/31/21 02/24/22 Rx aspirin 81 mg tablet,delayed 81 mg PO BID 42 days #0 tabs 01/17/22 02/24/22 Rx release prednisone 5 mg tablet 15 mg PO QAM 02/01/22 02/24/22 History ropinirole 1 mg tablet 1 mg PO .DAILY IN AFTERNOON 02/01/22 02/24/22 History ropinirole 1 mg tablet 2 mg PO HS 02/01/22 02/24/22 History metoprolol succinate 25 mg 25 mg PO DAILY 02/20/22 02/24/22 History tablet,extended release 24 hr torsemide 20 mg tablet See Rx Instructions .Route 02/20/22 02/24/22 Rx .COMPLEX #45 tabs triamterene 37.5 See Rx Instructions .Route 02/20/22 02/24/22 Rx mg-hydrochlorothiazide 25 mg .COMPLEX #45 caps capsule trazodone 50 mg tablet 50 mg PO DAILY #30 tabs 02/24/22 02/24/22 Rx Allergies Allergy/AdvReac Type Severity Reaction Status Date / Time rifampin Allergy Intermediate cardiac Verified 02/24/22 12:58 arrhymia + renal failure Past Med/Surg History Medical History Essential tremor Bilateral hands - mild/intermittent GERD (gastroesophageal reflux disease) Well controlled and stable Giant cell arteritis Temporal biopsy was negative, being treated for this as patient reports she had all symptoms. follows with Dr Easley ([facility]) On Prednisone x 1.5 months - currently down to Prednisone 15mg BID - following with rheum for taper to f/u Rheumatology 03/04/22 History of COVID-26 July 2020. no current problems History of recent steroid use Pt currently on tapering Prednisone dose for PMR and giant cell arteritis- Prednisone started around beginning of November 2021 and is continue on tapering dose - recently changed from Prednisone 15 mg BID Hx MRSA infection ~2016 in the finger, dx at [facility]. Osteomyelitis- did have surgery to remove Hx of kidney disease WNL JUNIORY/WAS STAGE 3 Hx of sepsis R/t kidney infection August 2021 and treated at [facility]. Hypercholesterolemia Hypertension variable per pt, recently self adjusted metoprolol and triamterene-HCTZ Hypothyroidism Interdigital neuroma of foot HX FOOT INJECTIONS *DONE UNDER ANESTHESIA Intractable muscle spasm Patient reports she will have random muscle spasms, unable to have any definitive diagnosis and followed with various physicians, better with the prednisone currently. Myopathy Had negative muscle biopsy Neuropathy Pacemaker INSERTED 2018/recurrent syncope secondary to symptomatic bradycardia. Paroxysmal SVT (supraventricular tachycardia) recently treated in Emergency Room at [facility] for syncope s/p TKA 01/2022. patient was diagnosed with a UTI with treatment of abx and "runs of SVT" Polymyalgia rheumatica On Prednisone - x 1.5 months Restless legs syndrome Rheumatoid arthritis QUESTIONABLE- SERUM NEGATIVE Right bundle branch block (RBBB) FOLLOWS WITH DR. FERMIN Sleep apnea Noncompliant with CPAP Spinal stenosis of lumbar region Spondylolysis Vascular disease Renal artery stenosis, celiac/SMA stenosis- no intervention felt necessary per 02/05/21 vascular note Per patient- seen at [facility] afterwards and felt report was read incorrect and patient has no significant stenosis Surgical History Encounter for biopsy (07/09/21) Left Thigh Muscle Biopsy - Solo Parada DO, FACS 07/09/2021 History of bilateral tubal ligation History of breast biopsy aspiration of cyst from left breast benign History of cholecystectomy History of colonoscopy History of dilatation and curettage History of esophagogastroduodenoscopy (EGD) History of hand surgery right finger left hand--I&D History of temporal artery biopsy History of tooth extraction History of total abdominal hysterectomy and bilateral salpingo-oophorectomy S/P cardiac pacemaker procedure placed 2019 at [facility]. Status post right knee replacement 01/16/22: LMA#5 + PNB. Family History Grandmother (Maternal) Family history of diabetes mellitus Father Myocardial infarction Lung cancer Hypertension Mother Acute myocardial infarction Hypertension Other No family history of adverse response to anesthesia Denies family history of Ovarian cancer Breast cancer Colorectal cancer Social History Smoking Status: Never smoker Second Hand Exposure: Yes (parents smoked); Hx Alcohol Use: No Hx Substance Use: No Preferred Language: South Korean Communication Ability: Effective Visual Impairment: No Limitations Solution Design And Analysis Manager Required: No Beliefs That Will Affect Care: None marital status: Current Living Situation: Spouse Current Living Situation Comment: lives with current occupational status: employed and retired How many Children do You have: 2 Feels Safe at Home: Yes Childhood Exposure to Second-Hand Smoke: Yes Diet Comment: low dairy caffeine: Yes during the past year weight has: increased > 10 lbs Dental Care, Regularly: Yes Physical Activity Frequency: Daily Seatbelt Use: always Assistive Devices: Cane and Walker Review of Systems A total of 10 systems reviewed and were otherwise negative Physical Exam Vital Signs Vital Signs - 24 hr 03/11/22 08:25 Temperature 36.7 C Temperature Source Temporal Artery Scan Pulse Rate 88 Pulse Rhythm Regular Pulse Strength Normal Respiratory Rate 20 Respiratory Effort / Characteristics Non-Labored Spontaneous Respiratory Depth Normal Respiratory Pattern Regular Blood Pressure 147/69 H Blood Pressure Mean 95 Blood Pressure Position Sitting Pulse Oximetry 100 Oxygen Delivery Method Room Air Sepsis Recent Fever Within 48 Hours No Sepsis New/Unexplained Change in Mental Status No Sepsis Action Taken by Nursing No Action Required CONSTITUTIONAL/VITAL SIGNS: Reviewed / noted above. GENERAL: Non-toxic in appearance. INTEGUMENTARY: Warm, dry, and Learned. HEAD: Normocephalic. EYES: without scleral icterus or trauma. ENT/OROPHARYNX: clear and moist. LYMPHADENOPATHY/NECK: Is supple without lymphadenopathy or meningismus. RESPIRATORY: Clear to auscultation bilaterally. No increased work of breathing. CARDIOVASCULAR: Regular rate and rhythm. GI/ABDOMEN: Soft and nontender. No organomegaly or pulsatile mass. EXTREMITIES: Warm and well perfused. Absent patellar reflexes. BACK: No CVA tenderness. Tenderness to palpation of the lumbar region. NEUROLOGICAL: Intact without focal deficits. PSYCHIATRIC: normal affect. MUSCULOSKELETAL: Normally developed with good muscle tone. TRIAGE NURSING DOCUMENTATION REVIEWED. Medical Decision Making Differential Diagnosis Differential considered includes cauda equina syndrome, conus medullaris, spinal cord compression syndrome, peripheral nerve compression, fractures or subluxations, intra-abdominal pathology such as abdominal aortic aneurysm or kidney stones, muscle strain, transverse myelitis, spinal cord injury. Medical Records Attestation: I reviewed the patient's medical records. Home Medications Current Medication List: was personally reviewed by me MDM Narrative 66-year-old female presents with low back pain that is ongoing but recently worsening. Details listed above. Her vital signs are stable. MRI has been ordered. I did speak with Dr. Zarate who is going to admit the patient for her ongoing and worsening symptoms. Impression & Plan Acute exacerbation of chronic low back pain Discharge Plan Visit Data Chief Complaint: Back Injury/Pain Stated Complaint: BACK PAIN, REFERRED BY DR ED Provider: Favian Connors Discharge Problem: Acute exacerbation of chronic low back pain Patient Disposition: Being Evaluated by Surgeon Forms Stand Alone Forms: My [facility] Prescriptions Prescriptions: No Action gabapentin 100 mg capsule 100 mg PO TID Qty: 270 3RF trazodone 50 mg tablet 50 mg PO DAILY Qty: 30 5RF triamterene-hydrochlorothiazid 37.5-25 mg capsule See Rx Instructions .ROUTE .COMPLEX Qty: 45 3RF Rx Instructions: Take 1 capsule by mouth every other day (alternate with Torsemide every other day) torsemide 20 mg tablet See Rx Instructions .ROUTE .COMPLEX Qty: 45 3RF Rx Instructions: Take 1 tablet by mouth every other day (alternate with Triamterene- Hydrochlorothiazide 37.5-25 mg every other day. duloxetine [Cymbalta] 60 mg capsule,delayed release(DR/EC) 60 mg PO QAM Label Comments: TAKES FOR PAIN Calcium 600 + D(3) 600 mg calcium- 200 unit Capsule 1 tab PO BID ferrous sulfate [Feosol] 325 mg (65 mg iron) tablet 325 mg PO QAM Label Comments: TAKING DAILY ONLY QAM B-complex with vitamin C Capsule 1 cap PO QAM Probiotic 3 billion cell Capsule 3,000 mmu cells PO PM ascorbate calcium (vitamin C) 500 mg tablet 1 g PO QAM docusate sodium [Dulcolax Stool Softener (dss)] 100 mg Capsule 100 mg PO PM magnesium 250 mg tablet 500 mg PO QAM pantoprazole 40 mg tablet,delayed release (DR/EC) 40 mg PO HS losartan 100 mg tablet 100 mg PO QAM levothyroxine 100 mcg capsule 100 mcg PO QDL Label Comments: TAKES AT 3PM aspirin 81 mg tablet,delayed release (DR/EC) 81 mg PO BID 42 Days Qty: 0 0RF metoprolol succinate 25 mg tablet extended release 24 hr 25 mg PO DAILY prednisone 5 mg tablet 15 mg PO QAM ropinirole 1 mg tablet 2 mg PO HS ropinirole 1 mg tablet 1 mg PO .DAILY IN AFTERNOON Referrals Referrals: Michael King MD [Primary Care Provider] -
[2022-03-11] MEDS ORDERED: MoRPHine SULFATE 2 MG/ML CARP IV STA (12:06)
--- NOTE | 2022-03-11 12:47 | History & Physical Report ---
Date of Service March 11, 2022 Assessment & Plan (1) Spondylolisthesis at L4-L5 level: Plan: Patient is being admitted to Dr. Zarate service. She has had a decline. She has a known spondylolisthesis at L4-5. She has failed conservative treatment including physical therapy, healthcare prof and pain management. We will attempt to pursue surgical intervention during her hospital stay in the form of a posterior lumbar decompression and instrumented fusion. We will update imaging as well. History of Present Illness Chief Complaint: Worsening back and bilateral leg pain Primary Care Provider: Michael King MD Is a pleasant 66-year-old female well-known to us. She is actually scheduled for upcoming surgical intervention with Dr. Zarate this March 13. Unfortunately her insurance did not authorize her surgery. She presents to the ER this morning due to worsening back and bilateral lower extremity symptoms. It affects both legs equally. Standing 2 or 3 minutes or walking this length of time exacerbate her pain. It goes down the bilateral buttock, posterior lateral thighs, calves to her feet. Seated position is palliative. Symptoms have been ongoing for months but really progressively worsening over the past week or 2. She reports the pain to be a 10 out of 10 at home with ambulation. she ambulates with a cane at home. She is on Neurontin and Cymbalta for pain control at home. Denies bowel or bladder changes. She has just completed 8 weeks of physical therapy without any improvement. She sees Dr. Leiva for chiropractor treatment again with only modest results. She has had pain management injections last year with [facility]. Allergies Allergy/AdvReac Type Severity Reaction Status Date / Time rifampin Allergy Intermediate cardiac Verified 03/11/22 11:30 arrhymia + renal failure Home Medications Medication Instructions Recorded Confirmed Type calcium carbonate 600 mg-vitamin 1 tab PO BID 06/21/18 03/11/22 History D3 5 mcg (200 unit) capsule (Calcium 600 + D(3)) duloxetine 60 mg capsule,delayed 60 mg PO QAM 06/24/20 03/11/22 History release (Cymbalta) B-complex with vitamin C 1 cap PO QAM 07/09/21 03/11/22 History ferrous sulfate 325 mg (65 mg 325 mg PO QAM 07/09/21 03/11/22 History iron) tablet (Feosol) lactobacillus combination no.4 3 3,000 mmu cells PO PM 07/09/21 03/11/22 History billion cell capsule (Probiotic) docusate sodium 100 mg capsule 100 mg PO PM 07/10/21 03/11/22 History (Dulcolax Stool Softener (docusate)) ascorbate calcium (vitamin C) 500 1 g PO QAM 10/10/21 03/11/22 History mg tablet magnesium 250 mg tablet 500 mg PO QAM 10/10/21 03/11/22 History levothyroxine 100 mcg capsule 100 mcg PO QDL 12/18/21 03/11/22 History losartan 100 mg tablet 100 mg PO QAM 12/18/21 03/11/22 History pantoprazole 40 mg tablet,delayed 40 mg PO HS 12/18/21 03/11/22 History release gabapentin 100 mg capsule 100 mg PO TID #270 caps 12/31/21 03/11/22 Rx prednisone 5 mg tablet 15 mg PO QAM 02/01/22 03/11/22 History ropinirole 1 mg tablet 1 mg PO .DAILY IN AFTERNOON 02/01/22 03/11/22 History ropinirole 1 mg tablet 2 mg PO HS 02/01/22 03/11/22 History metoprolol succinate 25 mg 25 mg PO DAILY 02/20/22 03/11/22 History tablet,extended release 24 hr aspirin 81 mg tablet,delayed 81 mg PO DAILY 03/11/22 03/11/22 History release hydroxychloroquine 200 mg tablet 200 mg PO AMHS 03/11/22 03/11/22 History torsemide 20 mg tablet 20 mg PO Q OTHER DAY 03/11/22 03/11/22 History trazodone 50 mg tablet 50 mg PO HS PRN Sleep 03/11/22 03/11/22 History triamterene 37.5 1 cap PO Q OTHER DAY 03/11/22 03/11/22 History mg-hydrochlorothiazide 25 mg capsule Past Med/Surg History Medical History Essential tremor Bilateral hands - mild/intermittent GERD (gastroesophageal reflux disease) Well controlled and stable Giant cell arteritis Temporal biopsy was negative, being treated for this as patient reports she had all symptoms. [facility] with [facility] Easley [facility] On Prednisone x 1.5 months - currently down to Prednisone 15mg BID - following with rheum for taper to f/u Rheumatology 03/04/22 History of COVID-26 July 2020. no current problems History of recent steroid use Pt currently on tapering Prednisone dose for PMR and giant cell arteritis- Prednisone started around beginning of November 2021 and is continue on tapering dose - recently changed from Prednisone 15 mg BID Hx MRSA infection ~2016 in the finger, dx at [facility]. Osteomyelitis- did have surgery to remove Hx of kidney disease WNL CURRENLTY/WAS STAGE 3 Hx of sepsis R/t kidney infection August 2021 and treated at [facility]. Hypercholesterolemia Hypertension variable per pt, recently self adjusted metoprolol and triamterene-HCTZ Hypothyroidism Interdigital neuroma of foot HX FOOT INJECTIONS *DONE UNDER ANESTHESIA Intractable muscle spasm Patient reports she will have random muscle spasms, unable to have any definitive diagnosis and followed with various physicians, better with the prednisone currently. Myopathy Had negative muscle biopsy Neuropathy Pacemaker INSERTED 2018/recurrent syncope secondary to symptomatic bradycardia. Paroxysmal SVT (supraventricular tachycardia) recently treated in Emergency Room at [facility] for syncope s/p TKA 01/2022. patient was diagnosed with a UTI with treatment of abx and "runs of SVT" Polymyalgia rheumatica On Prednisone - x 1.5 months Restless legs syndrome Rheumatoid arthritis QUESTIONABLE- SERUM NEGATIVE Right bundle branch block (RBBB) FOLLOWS WITH DR. FERMIN Sleep apnea Noncompliant with CPAP Spinal stenosis of lumbar region Spondylolysis Vascular disease Renal artery stenosis, celiac/SMA stenosis- no intervention felt necessary per 02/05/21 vascular note Per patient- [place] [facility] and felt report was read incorrect and patient has no significant stenosis Surgical History Encounter for biopsy (07/09/21) Left Thigh Muscle Biopsy - Sloo Parada DO, FACS 07/09/2021 History of bilateral tubal ligation History of breast biopsy aspiration of cyst from left breast benign History of cholecystectomy History of colonoscopy History of dilatation and curettage History of esophagogastroduodenoscopy (EGD) History of hand surgery right finger left hand--I&D History of temporal artery biopsy History of tooth extraction History of total abdominal hysterectomy and bilateral salpingo-oophorectomy S/P cardiac pacemaker procedure placed 2019 at [facility]. Status post right knee replacement 01/16/22: LMA#5 + PNB. Family History Grandmother (Maternal) Family history of diabetes mellitus Father Myocardial infarction Lung cancer Hypertension Mother Acute myocardial infarction Hypertension Other No family history of adverse response to anesthesia Denies family history of Ovarian cancer Breast cancer Colorectal cancer Social History Smoking Status: Never smoker Second Hand Exposure: Yes (parents smoked); Hx Alcohol Use: No Hx Substance Use: No Preferred Language: Serbian Communication Ability: Effective Visual Impairment: No Limitations Pipe Turner Required: No Beliefs That Will Affect Care: None marital status: Current Living Situation: Spouse Current Living Situation Comment: lives with current occupational status: employed and retired How many Children do You have: 2 Feels Safe at Home: Yes Childhood Exposure to Second-Hand Smoke: Yes Diet Comment: low dairy caffeine: Yes during the past year weight has: increased > 10 lbs Dental Care, Regularly: Yes Physical Activity Frequency: Daily Seatbelt Use: always Assistive Devices: Cane and Walker Review of Systems Review of Systems: All systems reviewed & are unremarkable except as noted in HPI & below Physical Exam Physical Exam: She is seen in the ER with her . She is alert and oriented times Strength is 5/5 bilateral EHL, dorsiflexion, plantarflexion, quadriceps, hamstrings, hip flexors, hip abductor's and hip adductor Negative logrolling bilaterally. Constitutional: WD/WN, vitals as above Eyes: normal visual naik by confrontation ENMT: external ear and nose normal, oropharynx normal Neck: normal visual inspection Respiratory: normal respiratory effort Cardiovascular: Extremities: normal capillary refill Gastrointestinal (Abdomen): Inspection/Auscultation: abdomen normal to inspection Musculoskeletal: Spine: + pain with thoraco-lumbar ROM Skin: no rashes, warm and dry Neurologic: normal touch/pain/proprioception and moves all extremities Psychiatric: A+Ox3, euthymic affect Eye Contact: good eye contact Speech: normal rate/rhythm/volume of speech Results & Data Results & Data ([facility]) Vital Signs (Past 12 Hours) Vital Signs Temp Pulse Resp BP Pulse Ox O2 Del Method 03/11/22 08:25 36.7 C 88 20 147/69 H 100 Room Air Code Status & VTE Plan VTE Prophylaxis Plan VTE Prophylaxis will be ordered: Yes
--- NOTE | 2022-03-11 13:19 | Magnetic Resonance Report ---
MRI OF THE LUMBAR SPINE WITHOUT CONTRAST CLINICAL HISTORY: Low back pain. Difficulty walking. COMPARISON STUDY: Lumbar spine CT November 23, 2021. Lumbar spine MRI January 05, 2022. TECHNIQUE: Utilizing a 1.5 Arlin magnet and dedicated coil, multiplanar, multiecho imaging of the [facility] spine was performed without IV contrast. FINDINGS: For purposes of numbering on this exam, the L5-S1 disc space is assigned to axial image 23 of 25. Ant erolisthesis of L4 and L5 is unchanged since MRI of January 05, 2022. There is no intracanalicular mas s or fluid collection. Conus terminates at the upper L2 level. Paravertebral soft tissues are unremar kable. The appearance of the lumbar spine is similar to previous MRI. There is no marrow edema or mar row replacement. There are discogenic changes at the L4-L5 level. L1-2: Minimal disc bulge is present. There is moderate facet arthrosis. Central canal and neural fora men are patent. L2-3: There is facet arthrosis with ligamentous hypertrophy. Central canal and neural foramen are pat ent. L3-4: There is moderate facet arthrosis. Central canal and neural foramen are patent. L4-5: Marked disc space narrowing is unchanged. There is severe facet arthrosis. Mild narrowing of th e central canal is unchanged. There is mild narrowing of both lateral recesses and mild to moderate b ilateral neural foraminal stenosis. L5-S1: Facet arthrosis is present. Central canal is patent. Mild left neural foraminal stenosis is pr esent. Right neural foramen is patent. IMPRESSION: 1. No acute process within the lumbar spine. No change since MRI of January 05, 2022. 2. Moderate multilevel degenerative changes. Mild central canal stenosis at L4-L5. No severe central canal stenosis. 3. Multilevel neural foraminal stenosis, as above. ACT 112: Negative or not required by law. Electronically signed by: Yoshi Garcia M.D. 03/11/2022 1:18 PM
[2022-03-11] MEDS ORDERED: LACTATED RINGER'S 1,000 ML IV SCH (14:53)
[2022-03-11] MEDS ORDERED: HYDROmorphone INJ 0.5 MG/0.5 ML SYR IV PRN (14:53)
[2022-03-11] MEDS ORDERED: PROMETHAZINE HCL 12.5 MG in SODIUM CHLORIDE 0.9% 50 ML IV PRN (14:53)
[2022-03-11] MEDS ORDERED: ONDANSETRON 4 MG OD TAB PO PRN (14:53)
[2022-03-11] MEDS ORDERED: MAGNESIUM HYDROXIDE SUSP 30 ML UDC PO PRN (14:53)
[2022-03-11] MEDS ORDERED: METOCLOPRAMIDE HCL INJ 5 MG/ML 2 ML VIAL IV PRN (14:53)
[2022-03-11] MEDS ORDERED: NALOXONE HCL 0.4 MG/1 ML VIAL/CARP IV PRN (14:53)
[2022-03-11] MEDS ORDERED: HYDROmorphone INJ 1 MG/ML SYRINGE IV PRN (14:53)
[2022-03-11] MEDS ORDERED: ACETAMINOPHEN 500 MG TAB PO PRN (14:53)
[2022-03-11] MEDS ORDERED: LORazepam 0.5 MG TAB PO PRN (14:53)
[2022-03-11] MEDS ORDERED: ONDANSETRON INJ 2 MG/ML 2 ML VIAL IV PRN (14:53)
[2022-03-11] MEDS ORDERED: ACETAMINOPHEN 1,000 MG/100 ML VIAL IV PRN (14:53)
[2022-03-11] MEDS ORDERED: rOPINIRole HCL 1 MG TABLET PO SCH (15:15)
--- NOTE | 2022-03-11 16:00 | XRay Report ---
XR lumbar spine flex/ext only CLINICAL HISTORY: back pain TECHNIQUE: 5 views of the lumbar spine were obtained. Comparison: Comparison is made to lumbar spine radiographs 04/24/2021 FINDINGS: There is no evidence of an acute fracture. No significant degenerative changes are seen. Grade 2 ante rolisthesis of L4-L5 is unchanged. No soft tissue abnormality is seen. IMPRESSION: Stable grade 2 anterolisthesis of L4-L5. No abnormalities on flexion or extension. ACT 112: Negative or not required by law. Electronically signed by: Josh Mayorga M.D. 03/11/2022 3:59 PM
[2022-03-11] MEDS: GABAPENTIN 100 MG CAP PO SCH ×2 (16:43→20:30)
[2022-03-11] MEDS ORDERED: Nursing to Pharmacy Communication SCH ×2 (17:30)
[2022-03-11] MEDS: oxyCODONE HCL IR 5 MG TAB (IMMEDIATE RELEASE) PO PRN (17:42)
--- NOTE | 2022-03-11 19:19 | Hospitalist Consultation ---
Date of Consultation March 11, 2022 Assessment & Plan (1) Acute exacerbation of chronic low back pain: -Pain control, perioperative antibiotics, and DVT PPX per the primary team -Does not appear that the patient will have surgery until Wednesday at the earliest -Agree with protonix while patient is admitted as she is on chronic steroids -Per the surgical clearance by her PCP, they recommend continuing steroids through the perioperative, will continue prednisone for now -Light IV fluids ordered by surgical team but will hold for now as she is eating and drinking and appears edematous on exam -Will order chest xray tonight to monitor as she is edematous -Ordered am labs starting tomorrow to monitor baseline Hgb, renal function, and electrolytes (2) GERD (gastroesophageal reflux disease): -Continue pantoprazole (3) HTN (hypertension): -Will continue Losartan, Triamterine-HCTZ, and Torsemide for now as she is hypertensive and edematous on exam (4) Restless leg syndrome: -Continue Requip (5) Hyperlipidemia: -Continue statin (6) Hypothyroidism: -Continue levothyroxine (7) Rheumatoid arthritis: -Will continue prednisone for now as it is unsure when she will have surgery and she needs to be on steroids until the immediate perioperative period -Patient will likely need stress dose steroids shortly after her surgery Plan The patient was discussed with Dr. Vallecillo at the time of the consult Supervising Physician Co-Signing Physician Notes I personally saw and examined the patient. I verified all lynn points and agree with Favian Man PA-C with the following exceptions and/or additions: 66 year old female admission under ortho spine due to decline at home and no longer able to get around her house and no longer safe at home. O/E HS1+2, RRR, no murmurs, Chest CTAB, Left plantar flexion 4/5, right plantar flexion 5/5 A/P Lumbar radiculopathy - pain and VTE management per ortho spine. HTN - continue routine medications, hold on morning of operation - possibly on Wednesday per ortho spine Rheumatoid arthritis - continue prednisone - consider stress dose steroids yenny- operatively History of Present Illness Reason for Consultation: Medical Management Requesting Physician: Bharath Zarate DO Attending Physician: Dr. Javier Vallecillo History of Present Illness Lisa is a 66 year old female with a PMH significant for essential tremor, GERD, HTN, hyperlipidemia, Giant cell arteritis, polymyalgia rheumatica, previous MRSA infection, hypothyroidism, sinus bradycardia S/P pacemaker placement, restless leg syndrome, RA, JACOB, and lumbar spondylosis who presented to the [facility] ED on 03/11/22 with worsening back pain and ambulatory dysfunction. Per chart review, the patient was scheduled for surgical intervention with Dr. Zarate this Wednesday, Mar 13. Unfortunately, her surgery continues to be denied by her insurance; she was admitted by Dr. zarate's team for symptom control We were asked to consult for medical management after being admitted by Dr. Zarate's team earlier today. At the time of the exam the patient was resting comfortably in bed in no acute distress. She states that she is frustrated with her insurance company as they continue to deny her surgery and her symptoms continue to worsen. At this time she cannot control her urine when she stands, her BL feet are numb, and she has fallen down the stairs 5 times recently as she cannot feel the steps when she is going down them. She confirmed that Dr. Zarate's team is aware of these symptoms. She told me that her PCP and [employer] told her she should continue her prednisone up until she has surgery due to her multiple rheumatologic issues. When asked, she noted BL lower extremity swelling, for which she normally takes torsemide. She tells me that she has only had her requip today, no other medications at the time of my exam. She denies current fevers, chills, headache, changes in vision, hearing, taste, and smell, chest pain, SOB, abd pain, nausea, vomiting, diarrhea, dysuria, and hematuria. She states that her nurse was currently hold IV fluids that had been ordered by the surgical team until they can get clarification. Allergies Allergy/AdvReac Type Severity Reaction Status Date / Time rifampin Allergy Intermediate cardiac Verified 03/11/22 11:30 arrhymia + renal failure Home Medications Medication Instructions Recorded Confirmed Type calcium carbonate 600 mg-vitamin 1 tab PO BID 06/21/18 03/11/22 History D3 5 mcg (200 unit) capsule (Calcium 600 + D(3)) duloxetine 60 mg capsule,delayed 60 mg PO QAM 06/24/20 03/11/22 History release (Cymbalta) B-complex with vitamin C 1 cap PO QAM 07/09/21 03/11/22 History ferrous sulfate 325 mg (65 mg 325 mg PO QAM 07/09/21 03/11/22 History iron) tablet (Feosol) docusate sodium 100 mg capsule 100 mg PO PM 07/10/21 03/11/22 History (Dulcolax Stool Softener (docusate)) ascorbate calcium (vitamin C) 500 1 g PO QPM 10/10/21 03/11/22 History mg tablet magnesium 250 mg tablet 500 mg PO QAM 10/10/21 03/11/22 History levothyroxine 100 mcg capsule 100 mcg PO QDL 12/18/21 03/11/22 History losartan 100 mg tablet 100 mg PO QAM 12/18/21 03/11/22 History pantoprazole 40 mg tablet,delayed 40 mg PO HS 12/18/21 03/11/22 History release gabapentin 100 mg capsule 100 mg PO TID #270 caps 12/31/21 03/11/22 Rx prednisone 5 mg tablet 15 mg PO QAM 02/01/22 03/11/22 History ropinirole 1 mg tablet 1 mg PO DAILY 02/01/22 03/11/22 History ropinirole 1 mg tablet 2 mg PO HS 02/01/22 03/11/22 History metoprolol succinate 25 mg 25 mg PO DAILY 02/20/22 03/11/22 History tablet,extended release 24 hr aspirin 81 mg tablet,delayed 81 mg PO QPM 03/11/22 03/11/22 History release hydroxychloroquine 200 mg tablet 200 mg PO AMHS 03/11/22 03/11/22 History lactobacillus comb no.10 20 20,000 mmu cells PO DAILY 03/11/22 03/11/22 History billion cell capsule (Probiotic) torsemide 20 mg tablet 20 mg PO Q OTHER DAY 03/11/22 03/11/22 History trazodone 50 mg tablet 50 mg PO HS PRN Sleep 03/11/22 03/11/22 History triamterene 37.5 1 cap PO Q OTHER DAY 03/11/22 03/11/22 History mg-hydrochlorothiazide 25 mg capsule oxycodone 5 mg tablet 5 mg PO Q6H PRN pain, severe #30 03/13/22 Rx tabs tramadol 50 mg tablet 50 mg PO Q6H PRN pain, moderate 03/13/22 Rx #30 tabs Patient History Medical History Essential tremor Bilateral hands - mild/intermittent GERD (gastroesophageal reflux disease) Well controlled and stable Giant cell arteritis Temporal biopsy was negative, being treated for this as patient reports she had all symptoms. follows with Dr Easley ([facility]) On Prednisone x 1.5 months - currently down to Prednisone 15mg BID - follow ing with rheum for taper to f/u Rheumatology 03/04/22 History of COVID-26 July 2020. no current problems History of recent steroid use Pt currently on tapering Prednisone dose for PMR and giant cell arteritis- Prednisone started around beginning of November 2021 and is continue on tapering dose - recently changed from Prednisone 15 mg BID Hx MRSA infection ~2016 in the finger, dx at [facility]. Osteomyelitis- did have surgery to remove Hx of kidney disease WNL CURRENLTY/WAS STAGE 3 Hx of sepsis R/t kidney infection August 2021 and treated at [facility]. Hypercholesterolemia Hypertension variable per pt, recently self adjusted metoprolol and triamterene-HCTZ Hypothyroidism Interdigital neuroma of foot HX FOOT INJECTIONS *DONE UNDER ANESTHESIA Intractable muscle spasm Patient reports she will have random muscle spasms, unable to have any definitive diagnosis and followed with various physicians, better with the prednisone currently. Myopathy Had negative muscle biopsy Neuropathy Pacemaker INSERTED 2018/recurrent syncope secondary to symptomatic bradycardia. Paroxysmal SVT (supraventricular tachycardia) recently treated in Emergency Room at [facility] for syncope s/p TKA 01/2022. patient was diagnosed with a UTI with treatment of abx and "runs of SVT" Polymyalgia rheumatica On Prednisone - x 1.5 months Restless legs syndrome Rheumatoid arthritis QUESTIONABLE- SERUM NEGATIVE Right bundle branch block (RBBB) FOLLOWS WITH DR. FERMIN Sleep apnea Noncompliant with CPAP Spinal stenosis of lumbar region Spondylolysis Vascular disease Renal artery stenosis, celiac/SMA stenosis- no intervention felt necessary per 02/05/21 vascular note Per patient- seen at [facility] afterwards and felt report was read incorrect and patient has no significant stenosis Surgical History Encounter for biopsy (07/09/21) Left Thigh Muscle Biopsy - Solo Parada DO, FACS 07/09/2021 History of bilateral tubal ligation History of breast biopsy aspiration of cyst from left breast benign History of cholecystectomy History of colonoscopy History of dilatation and curettage History of esophagogastroduodenoscopy (EGD) History of hand surgery right finger left hand--I&D History of temporal artery biopsy History of tooth extraction History of total abdominal hysterectomy and bilateral salpingo-oophorectomy S/P cardiac pacemaker procedure placed 2019 at [facility]. Status post right knee replacement 01/16/22: LMA#5 + PNB. Family History Grandmother (Maternal) Family history of diabetes mellitus Father Myocardial infarction Lung cancer Hypertension Mother Acute myocardial infarction Hypertension Other No family history of adverse response to anesthesia Denies family history of Ovarian cancer Breast cancer Colorectal cancer Social History Smoking Status: Never smoker Second Hand Exposure: Yes (parents smoked); Hx Alcohol Use: No Hx Substance Use: No Preferred Language: Turkish Communication Ability: Effective Visual Impairment: No Limitations Instructional Developer Required: No Beliefs That Will Affect Care: None marital status: Current Living Situation: Spouse Current Living Situation Comment: lives with current occupational status: employed and retired How many Children do You have: 2 Other Information That Helps Us Care for You: No Feels Safe at Home: Yes Safety Concerns: Feels Safe At This Time Childhood Exposure to Second-Hand Smoke: Yes Diet Comment: low dairy caffeine: Yes during the past year weight has: increased > 10 lbs Dental Care, Regularly: Yes Physical Activity Frequency: Daily Seatbelt Use: always Assistive Devices: Cane, Crutches and Walker Review of Systems Review of Systems: Denies current fever, chills, headache, changes in vision, hearing, taste, and smell, chest pain, SOB, cough, abdominal pain, nausea, vomiting, diarrhea, hematemesis, melena, dysuria, hematuria. All systems have been reviewed and are otherwise negative. Physical Exam Physical Exam: Physical Exam: General: In no acute distress, stated age, well-nourished, good hygiene HEENT: Normocephalic, atraumatic, no scleral icterus, pupils around round, symmetrical, and reactive to light, moist mucus membranes, trachea midline, no thyromegaly Chest/Pulm: No respiratory distress, symmetrical chest expansion, clear breath sounds throughout Cardiac: RRR, no murmurs noted Abdomen: Negative for ascites and bruising, normoactive bowel sounds, soft, non-tender to palpation throughout Musculoskeletal: Patient with symmetrical ROM of the BL upper extremities, decreased flexion of the BL lower extremities due to chronic back pain Extremities: Radial, dorsalis pedis, and posterior tibial pulses are intact and symmetrical, +1-2 pitting edema noted in the BL LE's Skin: Warm, dry, no rashes , lesions, or scars noted Neuro: Alert and oriented to person, place, month, year, and president, no focal defects, CN II-XII tested and intact, Psych: No acute distress, calm and cooperative during the exam Results & Data Results & Data ([facility]) Vital Signs (Past 12 Hours) Vital Signs Temp Pulse Pulse Resp BP BP Pulse Ox 03/11/22 14:55 36.5 C 86 16 159/78 H 99 03/11/22 08:25 36.7 C 88 20 147/69 H 100 O2 Del Method 03/11/22 14:55 Room Air 03/11/22 08:25 Room Air Diagnostic Findings Lumbar Spine MRI 03/11/22 09:33 MRI OF THE LUMBAR SPINE WITHOUT CONTRAST CLINICAL HISTORY: Low back pain. Difficulty walking. COMPARISON STUDY: Lumbar spine CT November 23, 2021. Lumbar spine MRI January 05, 2022. TECHNIQUE: Utilizing a 1.5 Arlin magnet and dedicated coil, multiplanar, multiecho imaging of the lumbar spine was performed without IV contrast. FINDINGS: For purposes of numbering on this exam, the L5-S1 disc space is assigned to axial image 23 of 25. Anterolisthesis of L4 and L5 is unchanged since MRI of January 05, 2022. There is no intracanalicular mass or fluid collection. Conus terminates at the upper L2 level. Paravertebral soft tissues are unremarkable. The appearance of the lumbar spine is similar to previous MRI. There is no marrow edema or marrow replacement. There are discogenic changes at the L4-L5 level. L1-2: Minimal disc bulge is present. There is moderate facet arthrosis. Central canal and neural foramen are patent. L2-3: There is facet arthrosis with ligamentous hypertrophy. Central canal and neural foramen are patent. L3-4: There is moderate facet arthrosis. Central canal and neural foramen are patent. L4-5: Marked disc space narrowing is unchanged. There is severe facet arthrosis. Mild narrowing of the central canal is unchanged. There is mild narrowing of both lateral recesses and mild to moderate bilateral neural foraminal stenosis. L5-S1: Facet arthrosis is present. Central canal is patent. Mild left neural foraminal stenosis is present. Right neural foramen is patent. IMPRESSION: 1. No acute process within the lumbar spine. No change since MRI of January 05, 2022. 2. Moderate multilevel degenerative changes. Mild central canal stenosis at L4- L5. No severe central canal stenosis. 3. Multilevel neural foraminal stenosis, as above. ACT 112: Negative or not required by law. Electronically signed by: Yoshi Garcia M.D. 03/11/2022 1:18 PM Spine Flexion/Extension X-Ray 03/11/22 14:53 XR lumbar spine flex/ext only CLINICAL HISTORY: back pain TECHNIQUE: 5 views of the lumbar spine were obtained. Comparison: Comparison is made to lumbar spine radiographs 04/24/2021 FINDINGS: There is no evidence of an acute fracture. No significant degenerative changes are seen. Grade 2 anterolisthesis of L4-L5 is unchanged. No soft tissue abnormality is seen. IMPRESSION: Stable grade 2 anterolisthesis of L4-L5. No abnormalities on flexion or extension. ACT 112: Negative or not required by law. Electronically signed by: Josh Mayorga M.D. 03/11/2022 3:59 PM ECG Additional Comments: No ECG available at the time of the consult PG Care Time/CCT Total # of Minutes Spent Total Time Spent with Patient: Total time spent is greater than 50% in coordination of care (as documented) at patient's floor/unit and/or counseling patient: Coding [place] [address] Inpt Consult Level 4 Patient Type Established Medical Decision Making High Complexity Diagnoses Acute exacerbation of chronic low back pain M54.50; G89.29 GERD (gastroesophageal reflux disease) K21.9 HTN (hypertension) I10 Restless leg syndrome G25.81 Hyperlipidemia E78.5 Hypothyroidism E03.9 Rheumatoid arthritis M06.9
[2022-03-11] MEDS ORDERED: TORSEMIDE 20 MG TAB PO SCH (20:15)
--- NOTE | 2022-03-11 20:25 | XRay Report ---
XR chest 1V portable HISTORY: 66 years-old Female pre-op clearance preoperative exam COMPARISON: CTA chest 02/01/2022 TECHNIQUE: Portable AP view of the chest FINDINGS: Cardiac mediastinal and hilar silhouettes are unchanged. Left subclavian pacer. Unchanged right hemid iaphragmatic elevation. Atherosclerosis of the aorta. No pneumothorax, pleural effusion, airspace con solidation or overt pulmonary edema. Degenerative changes of the shoulders and spine with cholecystec santos. IMPRESSION: No acute process. ACT 112: Negative or not required by law. The above report was generated using voice recognition software. It may contain grammatical, syntax o r spelling errors. Electronically signed by: Blake Strong M.D. 03/11/2022 8:23 PM
[2022-03-11] MEDS: rOPINIRole HCL 2 MG TABLET PO SCH (20:30)
[2022-03-11] MEDS: DOCUSATE SODIUM/SENNA 50/8.6MG TAB PO SCH (20:30)
[2022-03-11] MEDS: predniSONE 5 MG TAB PO SCH (20:31)
[2022-03-11] MEDS: PANTOprazole 40 MG TAB PO SCH (20:31)
[2022-03-11] MEDS ORDERED: ASPIRIN 81 MG ECTAB PO SCH (21:00)
[2022-03-12] MEDS ORDERED: ceFAZolin 2000MG 2,000 MG/15 ML SYR IV SCH (06:00)
[2022-03-12] MEDS ORDERED: LEVOTHYROXINE SODIUM 100 MCG TABLET PO SCH (06:30)
--- NOTE | 2022-03-12 07:47 | Hospitalist Progress Note ---
Date of Service March 12, 2022 Assessment & Plan (1) Acute exacerbation of chronic low back pain: Plan: Admitted to Dr Zarate's service-- patient with PMHx significant for lumbar radiculopathy, seronegative arthritis/PMR/GCA, CKD III, HTN, L renal artery stenosis, superior mesenteric artery stenosis, HLD, hypothyroidism, s/p pacemaker for symptomatic bradycardia Patient with ongoing acute low back pain with inability to ambulate for more than 2-3 minutes at a time/sit for extended periods of time. Has failed outpatient conservative treatments including medication management with Neurontin/Cymbalta, PT, primary care provider, and pain management. CXR obtained due to LE edema --> no acute process. No IVF for now, monitor post- op for fluid retention/volume overload Pain control/antiemetics prn --> patient got dilaudid x 2 yesterday, made her feel extremely off/goofy. Tolerated the morphine in ER but also scared to take to make her feel worse. Assurance provided. Decreased morphine to smaller dose as well, 0.5mgIV/1mg IV as needed for moderate/severe pain Bowel regimen -- has not moved her bowels in 2 days. NPO after midnight for possible surgery, awaiting authorization Check UA given low back pain symptoms to r/o and concominent UTI, however patie nt denied any increased frequency/burning Continue steroids through yenny-operative period -- on 15mg daily prednisone for her PMR/GCA Labs for AM (2) Constipation: Plan: No BM in prior 2 days, however not totally abnormal, likely worsened by pain medications senna/docusate ordered, dulcolax x 1 now Of note, Ca 10.4 on admit, albumin 4.1. Is on Triamterene-HCTZ, torsemide 20mg QOD--> also per med rec, calcium 500+D3 BID --> will need to verify taking this medication Per prior review of imaging, had UTI in August 2021, imaging at that time did note a 5mm nonobstructing stone. Check vitamin D level given elevated Ca for completeness, if normal/add PTH to AM labs also checking renal US to eval for eval of stones contributing. Aggressive bowel regimen post op -- did have BS on exam, but monitor for ileus (3) GERD (gastroesophageal reflux disease): Plan: Continue pantoprazole mag checked, 1.7 (4) HTN (hypertension): Plan: BP stable 167/73 in setting of pain Continued on her losartan, Triamterene-HCTZ, torsemide given LE edema --> future hold on losartan post-op, will do same with triamterene-HCTZ POD#1 to ensure kidney function stable (5) Restless leg syndrome: Plan: Continue Requip does also appear patient on daily ferrous sulfate, hgb stable and will hold off resuming this until bowels are moving check B12 (6) Hyperlipidemia: Plan: Continue statin (7) Hypothyroidism: Plan: -Continue levothyroxine last TSH 0.833 in december, will repeat in AM (8) Rheumatoid arthritis: Plan: Will continue prednisone for now as it is unsure when she will have surgery and she needs to be on steroids until the immediate perioperative period -Patient will likely need stress dose steroids shortly after her surgery --> possible surgery tomorrow, will hold off ordered just yet and wait until we actually have time/date set (9) Status post placement of other cardiac pacemaker: Plan: placement noted due to hx syncope due to symptomatic bradycardia Plan The patient was discussed with Dr. Vallecillo at the time of the consult Admission and Anticipated Discharge Date Admission Date: March 11, 2022 Supervising Physician Co-Signing Physician Notes PA Supervision Note: I did not personally see or examine the patient today, but I verified all lynn points of ARJUN Schultz's assessment and plan with the following exceptions/additions: None Subjective eval this morning doing alright, morphine worked better than the diladid - made her feel funny having some numbness to her feet, some erythema/itchiness this morning some trace edema noted, typically wears compression stockings feels like walking on a ball on her right foot no opiates since last evening, does have significant pain to lower back/legs with numbness/tingling hx syncope, s/p pacemaker for complete heart block mentioned about syncopal episode couple of weeks ago, issues with standing up and her head feeling full hx PMR/GCA but states the artery biopsy was inconclusive previously, seronegative RA. Awaiting surgery for tomorrow. Monitoring erythema to feet, to alert if any worsening. Review of Systems Review of Systems: All systems reviewed & are unremarkable except as noted in HPI & below Physical Exam Physical Exam: General: WD/WN elderly female sitting up in chair, NAD but mildly uncomfortable with movements HEENT; head normocephalic, atraumatic, mmm, trachea midline Resp: CTA, diminshed in the bases, on room air CV: RRR, no m/r/g, 1+ b/l LE edema, calves non-tender, some erythema to distal toes bilaterally, nontender to palpation, pulses palpable GI: +BS, distended, nontender MSK/Neuro: pain to lumbar-thoracic region with any range of motion/bending forward, decreased flexion of b/l LE due to back pain, pulses palpable, decreased sensation to light touch, dry scaliness to legs Psych: AOx3, anxious about surgery Skin: cool, dry Results & Data Results & Data ([facility]) Vital Signs (Past 12 Hours) Vital Signs Temp Pulse Resp BP BP Pulse Ox O2 Del Method 03/12/22 07:20 36.9 C 86 18 147/78 H 95 Room Air 03/11/22 22:47 36.8 C 81 16 160/85 H 93 Room Air 03/11/22 20:25 Room Air 03/11/22 20:04 79 18 173/89 H 94 Room Air Laboratory Results 03/12/22 03/12/22 03/12/22 Range/Units 09:50 08:35 08:35 WBC (4.8-10.8) K/ul RBC (3.93-5.22) M/uL Hgb (12.0-16.0) g/dl Hct (34.1-44.9) % MCV (80.0-100.0) fL MCH (25.0-34.0) pg MCHC (32.0-36.0) g/dL RDW Std Deviation (36.4-46.3) fL RDW Coeff of Rowdy (11.5-14.5) % Plt Count (130-400) K/uL MPV (9.4-12.3) fL Sodium (136-145) mmol/L Potassium (3.5-5.1) mmol/L Chloride (98-107) mmol/L Carbon Dioxide (21-32) mmol/L Anion Gap (3-11) BUN (6-23) mg/dl Creatinine (0.6-1.2) mg/dl Est Cr Clr Drug Dosing ml/min Est GFR ( Amer) ml/min Est GFR (Non-Af Amer) ml/min BUN/Creatinine Ratio (10-20) Glucose (70-99(Fasting)) mg/dl Calcium (8.5-10.1) mg/dl Magnesium (1.7-2.4) mg/dl Albumin 4.3 (3.4-5.0) gm/dl 25-OH Vitamin D Total 50.1 (30-100) ng/ml Urine Color Yellow Urine Appearance Clear (Clear) Urine pH 5.0 (4.5-7.5) Ur Specific [place] 1.007 (1.000-1.030) Urine Protein Negative (Negative) Urine Glucose (UA) Negative (Negative) Urine Ketones Negative (Negative) Urine Blood Negative (Negative) Urine Nitrite Negative (Negative) Urine Bilirubin Negative (Negative) Urine Urobilinogen Negative (Negative) Ur Leukocyte Esterase 2+ H (Negative) Urine WBC (Auto) 5-10 H (0-5) /hpf Urine RBC (Auto) 0-4 (0-4) /hpf U Hyaline Cast (Auto) 1-5 (0-5) /lpf U Epithel Cells (Auto) 10-20 H (0-5) /lpf Urine Bacteria (Auto) 1+ H (Negative) 03/12/22 03/12/22 03/12/22 Range/Units 08:35 08:35 08:35 WBC 10.48 (4.8-10.8) K/ul RBC 4.20 (3.93-5.22) M/uL Hgb 12.7 (12.0-16.0) g/dl Hct 38.1 (34.1-44.9) % MCV 90.7 (80.0-100.0) fL MCH 30.2 (25.0-34.0) pg MCHC 33.3 (32.0-36.0) g/dL RDW Std Deviation 45.2 (36.4-46.3) fL RDW Coeff of Rowdy 13.6 (11.5-14.5) % Plt Count 227 (130-400) K/uL MPV 11.7 (9.4-12.3) fL Sodium 141 (136-145) mmol/L Potassium 3.5 (3.5-5.1) mmol/L Chloride 102 (98-107) mmol/L Carbon Dioxide 29 (21-32) mmol/L Anion Gap 10 (3-11) BUN 36 H (6-23) mg/dl Creatinine 1.36 H (0.6-1.2) mg/dl Est Cr Clr Drug Dosing 49.9 ml/min Est GFR ( Amer) 47.2 ml/min Est GFR (Non-Af Amer) 40.7 ml/min BUN/Creatinine Ratio 26.5 H (10-20) Glucose 133 H (70-99(Fasting)) mg/dl Calcium 10.4 H (8.5-10.1) mg/dl Magnesium Cancelled 1.7 (1.7-2.4) mg/dl Albumin (3.4-5.0) gm/dl 25-OH Vitamin D Total (30-100) ng/ml Urine Color Urine Appearance (Clear) Urine pH (4.5-7.5) Ur Specific [place] (1.000-1.030) Urine Protein (Negative) Urine Glucose (UA) (Negative) Urine Ketones (Negative) Urine Blood (Negative) Urine Nitrite (Negative) Urine Bilirubin (Negative) Urine Urobilinogen (Negative) Ur Leukocyte Esterase (Negative) Urine WBC (Auto) (0-5) /hpf Urine RBC (Auto) (0-4) /hpf U Hyaline Cast (Auto) (0-5) /lpf U Epithel Cells (Auto) (0-5) /lpf Urine Bacteria (Auto) (Negative) Diagnostic Findings Lumbar Spine MRI 03/11/22 09:33 MRI OF THE LUMBAR SPINE WITHOUT CONTRAST CLINICAL HISTORY: Low back pain. Difficulty walking. COMPARISON STUDY: Lumbar spine CT November 23, 2021. Lumbar spine MRI January 05, 2022. TECHNIQUE: Utilizing a 1.5 Arlin magnet and dedicated coil, multiplanar, multiecho imaging of the lumbar spine was performed without IV contrast. FINDINGS: For purposes of numbering on this exam, the L5-S1 disc space is assigned to axial image 23 of 25. Anterolisthesis of L4 and L5 is unchanged since MRI of January 05, 2022. There is no intracanalicular mass or fluid collection. Conus terminates at the upper L2 level. Paravertebral soft tissues are unremarkable. The appearance of the lumbar spine is similar to previous MRI. There is no marrow edema or marrow replacement. There are discogenic changes at the L4-L5 level. L1-2: Minimal disc bulge is present. There is moderate facet arthrosis. Central canal and neural foramen are patent. L2-3: There is facet arthrosis with ligamentous hypertrophy. Central canal and neural foramen are patent. L3-4: There is moderate facet arthrosis. Central canal and neural foramen are patent. L4-5: Marked disc space narrowing is unchanged. There is severe facet arthrosis. Mild narrowing of the central canal is unchanged. There is mild narrowing of both lateral recesses and mild to moderate bilateral neural foraminal stenosis. L5-S1: Facet arthrosis is present. Central canal is patent. Mild left neural foraminal stenosis is present. Right neural foramen is patent. IMPRESSION: 1. No acute process within the lumbar spine. No change since MRI of January 05, 2022. 2. Moderate multilevel degenerative changes. Mild central canal stenosis at L4- L5. No severe central canal stenosis. 3. Multilevel neural foraminal stenosis, as above. ACT 112: Negative or not required by law. Electronically signed by: Yoshi Garcia M.D. 03/11/2022 1:18 PM Spine Flexion/Extension X-Ray 03/11/22 14:53 XR lumbar spine flex/ext only CLINICAL HISTORY: back pain TECHNIQUE: 5 views of the lumbar spine were obtained. Comparison: Comparison is made to lumbar spine radiographs 04/24/2021 FINDINGS: There is no evidence of an acute fracture. No significant degenerative changes are seen. Grade 2 anterolisthesis of L4-L5 is unchanged. No soft tissue abnormality is seen. IMPRESSION: Stable grade 2 anterolisthesis of L4-L5. No abnormalities on flexion or extension. ACT 112: Negative or not required by law. Electronically signed by: Josh Mayorga M.D. 03/11/2022 3:59 PM Chest X-Ray 03/11/22 19:53 XR chest 1V portable HISTORY: 66 years-old Female pre-op clearance preoperative exam COMPARISON: CTA chest 02/01/2022 TECHNIQUE: Portable AP view of the chest FINDINGS: Cardiac mediastinal and hilar silhouettes are unchanged. Left subclavian pacer. Unchanged right hemidiaphragmatic elevation. Atherosclerosis of the aorta. No pneumothorax, pleural effusion, airspace consolidation or overt pulmonary edema. Degenerative changes of the shoulders and spine with cholecystectomy. IMPRESSION: No acute process. ACT 112: Negative or not required by law. The above report was generated using voice recognition software. It may contain grammatical, syntax or spelling errors. Electronically signed by: Blake Strong M.D. 03/11/2022 8:23 PM PG Care Time/CCT Total # of Minutes Spent Total Time Spent with Patient: Total time spent is greater than 50% in coordination of care (as documented) at patient's floor/unit and/or counseling patient: Coding Level of Care Code 76446 Subseq Hosp Care Lvl 3 Diagnoses Acute exacerbation of chronic low back pain M54.50; G89.29 Constipation K59.00 GERD (gastroesophageal reflux disease) K21.9 HTN (hypertension) I10 Restless leg syndrome G25.81 Hyperlipidemia E78.5 Hypothyroidism E03.9 Rheumatoid arthritis M06.9 Status post placement of other cardiac pacemaker Z95.0
--- NOTE | 2022-03-12 08:49 | Orthopedic Progress Note ---
Date of Service March 12, 2022 Assessment & Plan (1) Lumbar radiculopathy: Plan: Assessment lumbar spinal stenosis with spondylolisthesis L4-L5. Plan at this time she continues to have marked decline. There is significant neural compression secondary to the instability and disc base collapse at L4-L5. She has a grade 2 spondylolisthesis on standing x-rays. She clearly demonstrates a dynamic component when you compare her MRI scans to her x-rays. This is un doubtedly creating the neural compression and progressive neuro deficit. I am recommending urgent lumbar decompression and fusion L4-L5. Risk benefits pros cons again outlined in detail. We will make her n.p.o. after midnight. Admission and Anticipated Discharge Date Admission Date: March 11, 2022 Subjective Patient continues to struggle with severe leg pain and weakness. She is only comfortable sitting up in bed. She is unable to ambulate secondary to the pain. She is describes several falls over the past week secondary to leg weakness. Physical Exam Physical Exam: On exam she is only comfortable sitting forward in bed. She exhibits a 4-/5 left plantar flexion dorsiflexion to 4/5 on the right. Quadriceps are intact. She has marked sensory deficits to lower extremities. Deep tendon reflexes absent. Results & Data ([facility]) Vital Signs (Past 12 Hours) Vital Signs Temp Pulse Resp BP Pulse Ox O2 Del Method 03/12/22 07:20 36.9 C 86 18 147/78 H 95 Room Air 03/11/22 22:47 36.8 C 81 16 160/85 H 93 Room Air
[2022-03-12] MEDS: oxyCODONE HCL IR 5 MG TAB (IMMEDIATE RELEASE) PO PRN (08:54)
[2022-03-12] MEDS: DULoxetine HCL 60 MG CAP PO SCH (08:54)
[2022-03-12] MEDS: METOPROLOL SUCC 25MG EXT REL TAB PO SCH (08:55)
[2022-03-12] MEDS: GABAPENTIN 100 MG CAP PO SCH ×3 (08:55→21:27)
[2022-03-12] MEDS: predniSONE 5 MG TAB PO SCH (08:55)
[2022-03-12] MEDS ORDERED: LOSARTAN POTASSIUM 50 MG TAB PO SCH (09:00)
[2022-03-12 09:12] LABS: Hematocrit (blood only) 38.1 % (34.1-44.9); Hemoglobin 12.7 g/dl (12.0-16.0); Mean Corpuscular Hemoglobin 30.2 pg (25.0-34.0); Mean Corpuscular Hgb Conc 33.3 g/dL (32.0-36.0); Mean Corpuscular Volume 90.7 fL (80.0-100.0); Mean Platelet Volume 11.7 fL (9.4-12.3); Platelet Count 227 K/uL (130-400); RDW Coefficient of Variation 13.6 % (11.5-14.5); RDW Standard Deviation 45.2 fL (36.4-46.3); White Blood Count 10.48 K/ul (4.8-10.8)
[2022-03-12 09:35] LABS: BUN Creatinine Ratio 26.5 (10-20); Calcium 10.4 mg/dl (8.5-10.1); Creatinine Clr Calc Pharmacy 49.9 ml/min; Est GFR (African American) 47.2 ml/min; Est GFR (Non-African American) 40.7 ml/min; Magnesium 1.7 mg/dl (1.7-2.4); Potassium 3.5 mmol/L (3.5-5.1)
[2022-03-12] MEDS ORDERED: Nursing to Pharmacy Communication SCH (10:00)
[2022-03-12] MEDS ORDERED: MoRPHine SULFATE 2 MG/ML CARP IV PRN ×3 (10:04→16:44)
[2022-03-12 10:17] LABS: Appearance Urine Clear (Clear); Bacteria Urine Automated 1+ (Negative); Bilirubin Urine Negative (Negative); Blood Urine Negative (Negative); Color Urine Yellow; Glucose Urine UA Negative (Negative); Ketones Urine Negative (Negative); Leukocyte Esterase Urine 2+ (Negative); Nitrite Urine Negative (Negative); Protein Urine Negative (Negative); RBC Urine Automated 0-4 /hpf (0-4); Specific Gravity Urine 1.007 (1.000-1.030); Urobilinogen Urine Negative (Negative)
[2022-03-12] MEDS: LEVOTHYROXINE SODIUM 100 MCG TABLET PO SCH (11:42)
--- NOTE | 2022-03-12 12:13 | Anesthesiology Consultation ---
Date of Service March 12, 2022 Assessment & Plan (1) Encounter for pre-operative examination: Chart Review Chart Review: Acceptable Risk for Surgery and Patient NOT seen in Pre Admission Testing Consults Requested none History Surgery Operation Date: 03/13/22 07:00 Proposed Procedures p L4-L5 Lumbar Decompression Fusion - Bharath Zarate DO Height/Weight Height: 5 ft 4.5 in Weight: 107.7 kg Allergies Allergy/AdvReac Type Severity Reaction Status Date / Time rifampin Allergy Intermediate cardiac Verified 03/11/22 11:30 arrhymia + renal failure Medications Home Medications Medication Instructions Recorded Confirmed Last Taken calcium carbonate 600 mg-vitamin 1 tab PO BID 06/21/18 03/11/22 01/15/22 19:00 D3 5 mcg (200 unit) capsule (Calcium 600 + D(3)) duloxetine 60 mg capsule,delayed 60 mg PO QAM 06/24/20 03/11/22 01/16/22 06:00 release (Cymbalta) B-complex with vitamin C 1 cap PO QAM 07/09/21 03/11/22 01/15/22 07:00 ferrous sulfate 325 mg (65 mg 325 mg PO QAM 07/09/21 03/11/22 01/15/22 07:00 iron) tablet (Feosol) docusate sodium 100 mg capsule 100 mg PO PM 07/10/21 03/11/22 01/15/22 19:00 (Dulcolax Stool Softener (docusate)) ascorbate calcium (vitamin C) 500 1 g PO QPM 10/10/21 03/11/22 01/15/22 07:00 mg tablet magnesium 250 mg tablet 500 mg PO QAM 10/10/21 03/11/22 01/15/22 07:00 levothyroxine 100 mcg capsule 100 mcg PO QDL 12/18/21 03/11/22 01/15/22 15:00 losartan 100 mg tablet 100 mg PO QAM 12/18/21 03/11/22 01/15/22 07:00 pantoprazole 40 mg tablet,delayed 40 mg PO HS 12/18/21 03/11/22 01/15/22 19:00 release gabapentin 100 mg capsule 100 mg PO TID #270 caps 12/31/21 03/11/22 01/16/22 06:00 prednisone 5 mg tablet 15 mg PO QAM 02/01/22 03/11/22 Unknown ropinirole 1 mg tablet 1 mg PO DAILY 02/01/22 03/11/22 Unknown ropinirole 1 mg tablet 2 mg PO HS 02/01/22 03/11/22 Unknown metoprolol succinate 25 mg 25 mg PO DAILY 02/20/22 03/11/22 Unknown tablet,extended release 24 hr aspirin 81 mg tablet,delayed 81 mg PO QPM 03/11/22 03/11/22 Unknown release hydroxychloroquine 200 mg tablet 200 mg PO AMHS 03/11/22 03/11/22 Unknown lactobacillus comb no.10 20 20,000 mmu cells PO DAILY 03/11/22 03/11/22 Unknown billion cell capsule (Probiotic) torsemide 20 mg tablet 20 mg PO Q OTHER DAY 03/11/22 03/11/22 Unknown trazodone 50 mg tablet 50 mg PO HS PRN Sleep 03/11/22 03/11/22 Unknown triamterene 37.5 1 cap PO Q OTHER DAY 03/11/22 03/11/22 Unknown mg-hydrochlorothiazide 25 mg capsule Active Medications Generic Name Dose Route Start Last Admin Trade Name Freq PRN Reason Stop Dose Admin Duloxetine HCl 60 mg 03/12/22 09:00 03/12/22 08:54 Duloxetine Hcl 60 Mg Cap PO 04/11/22 08:59 60 mg QAM DODIE Administration Gabapentin 100 mg 03/11/22 15:15 03/12/22 08:55 Gabapentin 100 Mg Cap PO 04/10/22 15:14 100 mg TID DODIE Administration Levothyroxine Sodium 100 mcg 03/12/22 12:00 03/12/22 11:42 Levothyroxine Sodium 100 Mcg Tablet PO 04/11/22 11:59 100 mcg DAILY@1200 DODIE Administration Losartan Potassium 100 mg 03/12/22 09:00 03/12/22 08:54 Losartan Potassium 50 Mg Tab PO 04/11/22 08:59 100 mg QAM DODIE Administration Metoprolol Succinate 25 mg 03/12/22 09:00 03/12/22 08:55 Metoprolol Succ 25mg Ext Rel Tab PO 04/11/22 08:59 25 mg DAILY DODIE Administration Oxycodone HCl 5 - 10 mg 03/11/22 14:53 03/12/22 08:54 Oxycodone Hcl Ir 5 Mg Tab (Immediate Release) PO 03/25/22 14:52 10 mg Q4H PRN Administration mod to severe pain Pantoprazole Sodium 40 mg 03/11/22 21:00 03/11/22 20:31 Pantoprazole 40 Mg Tab PO 04/10/22 20:59 40 mg HS DODIE Administration Prednisone 15 mg 03/11/22 20:00 03/12/22 08:55 Prednisone 5 Mg Tab PO 04/10/22 19:59 15 mg QAM DODIE Administration Ropinirole HCl 2 mg 03/11/22 21:00 03/11/22 20:30 Ropinirole Hcl 2 Mg Tablet PO 04/10/22 20:59 2 mg HS DODIE Administration Senna/Docusate Sodium 2 tab 03/11/22 21:00 03/11/22 20:30 Docusate Sodium/Senna 50/8.6mg Tab PO 04/10/22 20:59 2 tab HS DODIE Administration Torsemide 20 mg 03/11/22 20:15 03/11/22 20:31 Torsemide 20 Mg Tab PO 04/10/22 20:14 20 mg Q48H DODIE Administration Past Medical History Medical History Essential tremor Bilateral hands - mild/intermittent GERD (gastroesophageal reflux disease) Well controlled and stable Giant cell arteritis Temporal biopsy was negative, being treated for this as patient reports she had all symptoms. follows with Dr Easley ([facility]) On Prednisone x 1.5 months - currently down to Prednisone 15mg BID - following with rheum for taper to f/u Rheumatology 03/04/22 History of COVID-26 July 2020. no current problems History of recent steroid use Pt currently on tapering Prednisone dose for PMR and giant cell arteritis- Prednisone started around beginning of November 2021 and is continue on tapering dose - recently changed from Prednisone 15 mg BID Hx MRSA infection ~2016 in the finger, dx at [facility]. Osteomyelitis- did have surgery to remove Hx of kidney disease WNL CURRENLTY/WAS STAGE 3 Hx of sepsis R/t kidney infection August 2021 and treated at [facility]. Hypercholesterolemia Hypertension variable per pt, recently self adjusted metoprolol and triamterene-HCTZ Hypothyroidism Interdigital neuroma of foot HX FOOT INJECTIONS *DONE UNDER ANESTHESIA Intractable muscle spasm Patient reports she will have random muscle spasms, unable to have any definitive diagnosis and followed with various physicians, better with the prednisone currently. Myopathy Had negative muscle biopsy Neuropathy Pacemaker INSERTED 2019/recurrent syncope secondary to symptomatic bradycardia. Paroxysmal SVT (supraventricular tachycardia) recently treated in Emergency Room at [facility] for syncope s/p TKA 01/2022. patient was diagnosed with a UTI with treatment of abx and "runs of SVT" Polymyalgia rheumatica On Prednisone - x 1.5 months Restless legs syndrome Rheumatoid arthritis QUESTIONABLE- SERUM NEGATIVE Right bundle branch block (RBBB) FOLLOWS WITH DR. FERMIN Sleep apnea Noncompliant with CPAP Spinal stenosis of lumbar region Spondylolysis Vascular disease Renal artery stenosis, celiac/SMA stenosis- no intervention felt necessary per 02/05/21 vascular note Per patient- seen at [facility] afterwards and felt report was read incorrect and p atient has no significant stenosis Past Family History Family History Grandmother (Maternal) Family history of diabetes mellitus Father Myocardial infarction Lung cancer Hypertension Mother Acute myocardial infarction Hypertension Other No family history of adverse response to anesthesia Denies family history of Ovarian cancer Breast cancer Colorectal cancer Past Surgical History Surgical History Encounter for biopsy (07/09/21) Left Thigh Muscle Biopsy - Solo Parada DO, FACS 07/09/2021 History of bilateral tubal ligation History of breast biopsy aspiration of cyst from left breast benign History of cholecystectomy History of colonoscopy History of dilatation and curettage History of esophagogastroduodenoscopy (EGD) History of hand surgery right finger left hand--I&D History of temporal artery biopsy History of tooth extraction History of total abdominal hysterectomy and bilateral salpingo-oophorectomy S/P cardiac pacemaker procedure placed 2019 at [facility]. Status post right knee replacement 01/16/22: LMA#5 + PNB. Social History Smoking Status: Never smoker Hx Alcohol Use: No Hx Substance Use: No substance use type: does not use Physical Exam Vital Signs Last Vital Signs Temp 36.9 C 03/12/22 07:20 Pulse 86 03/12/22 07:20 Resp 18 03/12/22 07:20 BP 147/78 H 03/12/22 07:20 Pulse Ox 95 03/12/22 07:20 O2 Del Method 03/12/22 07:20 Testing Laboratory Results 03/12/22 08:35 03/12/22 08:35 Urine Color Yellow 03/12/22 09:50 Urine Appearance Clear (Clear) 03/12/22 09:50 Urine pH 5.0 (4.5-7.5) 03/12/22 09:50 Ur Specific Morris 1.007 (1.000-1.030) 03/12/22 09:50 Urine Protein Negative (Negative) 03/12/22 09:50 Urine Glucose (UA) Negative (Negative) 03/12/22 09:50 Urine Ketones Negative (Negative) 03/12/22 09:50 Urine Nitrite Negative (Negative) 03/12/22 09:50 Ur Leukocyte Esterase 2+ (Negative) H 03/12/22 09:50 Urine WBC (Auto) 5-10 /hpf (0-5) H 03/12/22 09:50 Urine RBC (Auto) 0-4 /hpf (0-4) 03/12/22 09:50 U Hyaline Cast (Auto) 1-5 /lpf (0-5) 03/12/22 09:50 U Epithel Cells (Auto) 10-20 /lpf (0-5) H 03/12/22 09:50 Urine Bacteria (Auto) 1+ (Negative) H 03/12/22 09:50 Other Testing Testing Electrocardiogram Date: 02/17/22 Sinus rhythm with premature atrial complexes, rate 78 bpm RBBB Chest X-Ray Date: 02/01/22 A 2-lead cardiac pacemaker is unchanged in position and partially obscures the left lung base. The heart is top normal for projection noting atherosclerotic calcification of the thoracic aorta. The pulmonary vasculature is non-congested. The lungs and pleural spaces are clear noting mild bibasilar atelectasis. No pneumothorax is seen. The skeletal structures are osteopenic. The bony thorax is grossly intact. IMPRESSION: No active disease in the chest. Echocardiogram Date: 12/25/18 EF 55-60% No regional wall motion abnormalities No significant valvular pathology Stress Test Date: 12/10/20 Pharmacologic MPHR 61% Cervical Spine Date: 02/01/22 CT Skeletal structures: The skeletal structures are osteopenia. There is no evidence of fracture or subluxation involving the cervical spine. Vertebral body height there is maintained. There is minimal anterolisthesis at C4-C5 and minimal retrolisthesis at C3-C4. Alignment is otherwise preserved. There is near complete bony fusion of the bodies and facet joints of C5 and C6. There is straightening of the cervical lordosis. Small anterior osteophytes are seen throughout. The odontoid process and lateral masses are intact. The atlantoaxial articulation is preserved. The spinous processes appear intact. There is mild multilevel facet arthropathy. Intervertebral discs: There is mild to moderate disc space narrowing seen throughout the cervical spine. Central canal: Grossly patent. Soft tissues: The prevertebral and paraspinous soft tissues are within normal limits. Pacemaker leads are noted at the left thoracic inlet. There is mild atherosclerotic calcification of the carotid bulbs. Calvarium: The visualized calvarium at the skull base appears intact. Brain parenchyma: Partially visualized brain parenchyma at the skull base is within normal limits. Sinuses and mastoids: The visualized paranasal sinuses are clear. The mastoid air cells are well pneumatized. Lung apices: Clear as visualized. IMPRESSION: 1. There is no evidence of fracture or subluxation involving the cervical spine. 2. Osteopenia and spondylotic change as above. Other Testing Pacemaker report 02/01/22 [employer] Mode AAI DDD APPLICATIONS SUPPORT ANALYST 1.7% AP 5.3% Head CT 02/01/22 There is no hemorrhage, mass effect, or evidence of acute territorial ischemia by CT criteria. Chest CTA 02/01/22 Thyroid: Imaged portions of the thyroid gland are normal in size and attenuation. Thoracic aorta: There is atherosclerotic calcification of the thoracic aorta, which is normal in caliber and demonstrates standard 3-vessel arch anatomy. No dissection is seen. Pulmonary vasculature: The pulmonary trunk is normal in caliber. There are no filling defects identified in main, lobar, or segmental pulmonary branches to suggest pulmonary embolus. Heart: A pacemaker is noted in the left chest wall. The heart is normal in size and without pericardial effusion. Lungs and pleural spaces: Evaluation of the lung parenchyma is mildly degraded by motion artifact. There is no airspace consolidation or pleural effusion. Foci of atelectasis are seen throughout both lungs. The trachea and central airways appear clear. A 3 mm left lower lobe pulmonary nodule on image #65 is unchanged. Mediastinum: There is no mediastinal lymphadenopathy. Josefa: Clear. Axillae: There is no axillary lymphadenopathy. Upper abdomen: Partially visualized upper abdominal viscera is within normal limits. Skeletal structures: The skeletal structures are osteopenic. Degenerative change in hyperkyphosis is noted in the thoracic spine. No lytic or blastic bony lesions are seen. IMPRESSION: 1. There is no evidence of pulmonary embolus in the main, lobar, or segmental pulmonary arteries. 2. The lungs are clear. 3. Additional findings as above.
[2022-03-12] MEDS: rOPINIRole HCL 1 MG TABLET PO SCH (13:07)
[2022-03-12] MEDS: traMADol HCL 50 MG TABLET PO PRN ×2 (14:00→20:28)
[2022-03-12] MEDS ORDERED: bisacodyL 5 MG TABEC PO ONE (17:38)
[2022-03-12] MEDS ORDERED: MAGNESIUM SULFATE / D5W 1 GM/100 ML BAG IV ONE (17:44)
--- NOTE | 2022-03-12 18:41 | Ultrasound Report ---
US renal/blad retro comp CLINICAL HISTORY: eval kidney stones, acute low back pain, ?UTI TECHNIQUE: Multiple sonographic real-time images of the kidneys and bladder were obtained. COMPARISON: None available at the time of this dictation. FINDINGS: The right kidney measures 9.0 cm in length, and the left kidney measures 9.7 cm in length. The right kidney is normal in size, contour, cortical thickness, and echogenicity. No hydronephrosis is identified. No renal lesion is identified. No perinephric fluid collection is seen. The left kidney is normal in size, contour, cortical thickness and echogenicity. No hydronephrosis i s identified. A 7 mm stone is seen. No perinephric fluid collection is seen. The bladder is underdistended limiting visualization. IMPRESSION: No hydronephrosis. A nonobstructive stone is seen on the right. ACT 112: Negative or not required by law. Electronically signed by: Josh Mayorga M.D. 03/12/2022 6:39 PM
[2022-03-12] MEDS ORDERED: TRIAMTERENE/HCTZ 37.5/25MG TAB PO SCH (20:15)
[2022-03-12] MEDS: DOCUSATE SODIUM/SENNA 50/8.6MG TAB PO SCH (21:26)
[2022-03-12] MEDS: rOPINIRole HCL 2 MG TABLET PO SCH (21:27)
[2022-03-12] MEDS: PANTOprazole 40 MG TAB PO SCH (21:27)
[2022-03-13] MEDS: traMADol HCL 50 MG TABLET PO PRN (05:50)
[2022-03-13] MEDS ORDERED: ceFAZolin 2000MG 2,000 MG/15 ML SYR IV SCH (06:00)
[2022-03-13 06:41] LABS: Hematocrit (blood only) 35.1 % (34.1-44.9); Hemoglobin 11.4 g/dl (12.0-16.0); Mean Corpuscular Hemoglobin 29.7 pg (25.0-34.0); Mean Corpuscular Hgb Conc 32.5 g/dL (32.0-36.0); Mean Corpuscular Volume 91.4 fL (80.0-100.0); Mean Platelet Volume 11.4 fL (9.4-12.3); Platelet Count 207 K/uL (130-400); RDW Coefficient of Variation 13.5 % (11.5-14.5); RDW Standard Deviation 45.3 fL (36.4-46.3); Red Blood Count 3.84 M/uL (3.93-5.22); White Blood Count 9.83 K/ul (4.8-10.8)
[2022-03-13 07:01] LABS: BUN Creatinine Ratio 27.5 (10-20); Creatinine Clr Calc Pharmacy 44.3 ml/min; Est GFR (African American) 40.9 ml/min; Est GFR (Non-African American) 35.3 ml/min
[2022-03-13] MEDS ORDERED: POTASSIUM CHLORIDE CRTAB 20 MEQ TABCR PO STA (08:26)
--- NOTE | 2022-03-13 08:33 | Hospitalist Progress Note ---
Date of Service March 13, 2022 Assessment & Plan (1) Acute exacerbation of chronic low back pain: Plan: Admitted to Dr Zarate's service-- patient with PMHx significant for lumbar radiculopathy, seronegative arthritis/PMR/GCA, CKD III, HTN, L renal artery stenosis, superior mesenteric artery stenosis, HLD, hypothyroidism, s/p pacemaker for symptomatic bradycardia Patient with ongoing acute low back pain with inability to ambulate for more than 2-3 minutes at a time/sit for extended periods of time. Has failed outpatient conservative treatments including medication management with Neurontin/Cymbalta, PT, career professional, and pain management. CXR obtained due to LE edema -- no acute process-- was continued on her usual diuretics, placed on hold this morning s/p#1 lumbar decompression bilateral medial facetectomies and foraminotomies L3- L4 L4-5 per #2 posterior spinal fusion L4-5 #3 placement posterior instrumentation L4-5 per #4 interbody fusion L4-5 #5 placement of Spira 10 x 22 mm cage at L4-5. #6 placement locally harvested morselized autograft and posterior gutters. #7 placement of I factor model V toss interbody space and posterior lateral gutters. with Dr Zarate 03/13 EBL 200cc Pain control/antiemetics prn Bowel regimen IVF per surgery, holding diuretics DVT proph- SCDs/esmer hose. Ancef ordered for post-op abx -- monitor urine cx/results, consider tx if developed symptoms UA obtained to r/o other causes for pain -- UA with possible evidence for UTI however epi>WBC and patient denied symptoms, 1+ bacteria. Cx gram negative bacilli Renal US with nonobstructing stone, no hydro Continues on prednisone 15mg daily -- BP 143/72. --> monitor post-op for hypotension/considering stress dose steroids for this evening however BPs remain elevated. Monitor Labs in AM (2) Constipation: Plan: No BM in prior 2 days, however not totally abnormal, likely worsened by pain medications senna/docusate ordered, dulcolax x 1 now Of note, Ca 10.4 on admit, albumin 4.1. Is on Triamterene-HCTZ, torsemide 20mg QOD--> also per med rec, calcium 500+D3 BID --> would DISCONTINUE CALCIUM SUPPLEMENTATION Ca 10.0 on AM labs Suspect related to medications. Vit D wnl, PTH 43.9 Renal US w/o obstruction Passing some gas but no BM --> monitor for post-op ileus. Ambulation/bowel regimen as able Diet as tolerated (3) HTN (hypertension): Plan: BP stable in setting of pain Had been continued on her losartan/triamterene-HCTZ/torsemide pre-op given LE edema w/ hold instructions for after surgery Torsemide 20mg Q48H (last dose 03/11), Triamterene/HCTZ 37.5/25mg (not given 03/12) discontinued with post-op orders. --> had placed on hold for today anyways --> resume tomorrow pending Cr (Cr elevated to 1.53, BUN 42) IVF ordered per primary service Monitor (4) CKD (chronic kidney disease), stage III: Plan: CKD stage III baseline -- had reported prior using lots of NSAIDs for pain relief, has avoided Given her torsemide yesterday and appeared dehydrated on exam today Diuretics placed on hold (no increased LE edema) and IVF ordered by primary service post-op Monitor BMP in AM/resume meds as outlined above when able (5) GERD (gastroesophageal reflux disease): Plan: Continue pantoprazole mag checked, 1.7--> IV dose ordered Repeat mag 2.0 (6) Restless leg syndrome: Plan: Continue Requip does also appear patient on daily ferrous sulfate, hgb stable and will hold off resuming this until bowels are moving check B12 (7) Hyperlipidemia: Plan: Continue statin (8) Hypothyroidism: Plan: -Continue levothyroxine last TSH 0.833 in december, will repeat in AM (9) Rheumatoid arthritis: Plan: - continue prednisone -Patient may need stress dose steroids shortly after her surgery Hydroxychloroquine on hold given surgery, discuss w/ rheum on timing for resuming (10) Status post placement of other cardiac pacemaker: Plan: placement noted due to hx syncope due to symptomatic bradycardia (11) Abnormal finding on urinalysis: Plan: UA obtained to r/o other causes of LBP Not symptomatic with increased frequency/burning, however UA w/ 2+ leuk est, 1+ bacteria, however epi>WBC and could be contaminant Renal US obtained given prior hx pyelo/stone, no obstruction/hydro Monitor urine cx/tx if symptomatic ancef ordered post-op abx Plan continued inpatient stay hold diuretics/monitor renal function hospitalist service to follow along Admission and Anticipated Discharge Date Admission Date: March 11, 2022 Supervising Physician Co-Signing Physician Notes PA Supervision Note: I did not personally see or examine the patient today, but I verified all lynn points of ARJUN Schultz's assessment and plan with the following exceptions/additions: None Subjective Evaluated this afternoon following surgery. She just got up to the room. Pain currently 07/17. No CP/SOb reported. Has not eaten yet. Passing some gas overnight but no BM, will need aggressive bowel regimen. MM slightly dry, holding diuretics for now, will resume as able. No increased LE edema. Questions/concerns addressed at this time. Review of Systems Review of Systems: All systems reviewed & are unremarkable except as noted in HPI & below Physical Exam Physical Exam: General: WD/WN female laying flat in bed post-operatively, on 2L NC, NAD HEENT; head normocephalic, atraumatic, mm DRY, trachea midline Resp: CTA, diminished in the bases, on 2L post-op CV: RRR, no m/r/g, 1+ b/l LE edema, calves non-tender, some erythema to distal toes bilaterally, nontender to palpation, pulses palpable GI: +BS (slightly hypoactive), distended, nontender MSK/Neuro: dressing to lumbar spine c/d/i, HAY bloody drainage, NVI, plantar flexion/dorsiflexion intact, calves nontender to palpation, pulses palpable Psych: AOx3, cooperative, fatigued post-op Skin: cool, dry Results & Data Results & Data ([facility]) Vital Signs (Past 12 Hours) Vital Signs Temp Pulse Resp BP BP Pulse Ox O2 Del Method 03/13/22 08:30 36.5 C 86 16 157/69 H 94 Room Air 03/12/22 22:45 36.5 C 79 16 113/68 95 Room Air Laboratory Results 03/13/22 03/13/22 03/13/22 Range/Units 06:19 06:19 06:19 WBC (4.8-10.8) K/ul RBC (3.93-5.22) M/uL Hgb (12.0-16.0) g/dl Hct (34.1-44.9) % MCV (80.0-100.0) fL MCH (25.0-34.0) pg MCHC (32.0-36.0) g/dL RDW Std Deviation (36.4-46.3) fL RDW Coeff of Rowdy (11.5-14.5) % Plt Count (130-400) K/uL MPV (9.4-12.3) fL Sodium (136-145) mmol/L Potassium (3.5-5.1) mmol/L Chloride (98-107) mmol/L Carbon Dioxide (21-32) mmol/L Anion Gap (3-11) BUN (6-23) mg/dl Creatinine (0.6-1.2) mg/dl Est Cr Clr Drug Dosing ml/min Est GFR ( Amer) ml/min Est GFR (Non-Af Amer) ml/min BUN/Creatinine Ratio (10-20) Glucose (70-99(Fasting)) mg/dl Calcium (8.5-10.1) mg/dl Magnesium 2.0 (1.7-2.4) mg/dl Vitamin B12 807 (180-914) pg/ml TSH (0.300-4.500) uIu/ml PTH Intact 43.9 (12.0-88.0) pg/ml 03/13/22 03/13/22 03/13/22 Range/Units 06:19 06:19 06:19 WBC 9.83 (4.8-10.8) K/ul RBC 3.84 L (3.93-5.22) M/uL Hgb 11.4 L (12.0-16.0) g/dl Hct 35.1 (34.1-44.9) % MCV 91.4 (80.0-100.0) fL MCH 29.7 (25.0-34.0) pg MCHC 32.5 (32.0-36.0) g/dL RDW Std Deviation 45.3 (36.4-46.3) fL RDW Coeff of Rowdy 13.5 (11.5-14.5) % Plt Count 207 (130-400) K/uL MPV 11.4 (9.4-12.3) fL Sodium 141 (136-145) mmol/L Potassium 3.0 L (3.5-5.1) mmol/L Chloride 100 (98-107) mmol/L Carbon Dioxide 33 H (21-32) mmol/L Anion Gap 8 (3-11) BUN 42 H (6-23) mg/dl Creatinine 1.53 H (0.6-1.2) mg/dl Est Cr Clr Drug Dosing 44.3 ml/min Est GFR ( Amer) 40.9 ml/min Est GFR (Non-Af Amer) 35.3 ml/min BUN/Creatinine Ratio 27.5 H (10-20) Glucose 97 (70-99(Fasting)) mg/dl Calcium 10.0 (8.5-10.1) mg/dl Magnesium (1.7-2.4) mg/dl Vitamin B12 (180-914) pg/ml TSH 1.024 (0.300-4.500) uIu/ml PTH Intact (12.0-88.0) pg/ml Diagnostic Findings Renal Ultrasound 03/12/22 17:34 US renal/blad retro comp CLINICAL HISTORY: eval kidney stones, acute low back pain, ?UTI TECHNIQUE: Multiple sonographic real-time images of the kidneys and bladder were obtained. COMPARISON: None available at the time of this dictation. FINDINGS: The right kidney measures 9.0 cm in length, and the left kidney measures 9.7 cm in length. The right kidney is normal in size, contour, cortical thickness, and echogenicity. No hydronephrosis is identified. No renal lesion is identified. No perinephric fluid collection is seen. The left kidney is normal in size, contour, cortical thickness and echogenicity. No hydronephrosis is identified. A 7 mm stone is seen. No perinephric fluid collection is seen. The bladder is underdistended limiting visualization. IMPRESSION: No hydronephrosis. A nonobstructive stone is seen on the right. ACT 112: Negative or not required by law. Electronically signed by: Josh Mayorga M.D. 03/12/2022 6:39 PM PG Care Time/CCT Total # of Minutes Spent Total Time Spent with Patient: Total time spent is greater than 50% in coordination of care (as documented) at patient's floor/unit and/or counseling patient: Coding Level of Care Code 91623 Subseq Hosp Care Lvl 3 Diagnoses Acute exacerbation of chronic low back pain M54.50; G89.29 Constipation K59.00 HTN (hypertension) I10 CKD (chronic kidney disease), stage III N18.3 GERD (gastroesophageal reflux disease) K21.9 Restless leg syndrome G25.81 Hyperlipidemia E78.5 Hypothyroidism E03.9 Rheumatoid arthritis M06.9 Status post placement of other cardiac pacemaker Z95.0 Abnormal finding on urinalysis R82.90
[2022-03-13] MEDS: oxyCODONE HCL IR 5 MG TAB (IMMEDIATE RELEASE) PO PRN ×2 (09:03→16:04)
[2022-03-13] MEDS: GABAPENTIN 100 MG CAP PO SCH ×3 (09:04→20:25)
[2022-03-13] MEDS: predniSONE 5 MG TAB PO SCH (09:05)
[2022-03-13] MEDS: DULoxetine HCL 60 MG CAP PO SCH (09:05)
[2022-03-13] MEDS: METOPROLOL SUCC 25MG EXT REL TAB PO SCH (09:05)
[2022-03-13] MEDS ORDERED: ATROPINE SULFATE 0.1 MG/ML 10ML SYR IV PRN (10:11)
[2022-03-13] MEDS ORDERED: ONDANSETRON INJ 2 MG/ML 2 ML VIAL IV PRN ×2 (10:11→14:28)
[2022-03-13] MEDS ORDERED: PROMETHAZINE HCL 6.25 MG in SODIUM CHLORIDE 0.9% 50 ML IV PRN (10:11)
[2022-03-13] MEDS: LEVOTHYROXINE SODIUM 100 MCG TABLET PO SCH (12:06)
[2022-03-13] MEDS: rOPINIRole HCL 1 MG TABLET PO SCH (12:06)
--- NOTE | 2022-03-13 12:11 | Operative Report ---
Post Operative Report Pre & Post Diagnosis Operation Date: 03/13/22 07:00 Pre-Op Diagnosis: Lumbar spinal stenosis with spondylolisthesis and progressive neurologic deficit Morbid obesity Post-Op Diagnosis: Same I identified the patient and participated in the time-out.: Yes Procedure Operation Date: 03/13/22 07:00 Actual Procedures #1 lumbar decompression bilateral medial facetectomies and foraminotomies L3-L4 L4-5 per #2 posterior spinal fusion L4-5 #3 placement posterior instrumentation L4-5 per #4 interbody fusion L4-5 #5 placement of Spira 10 x 22 mm cage at L4-5. #6 placement locally harvested morselized autograft and posterior gutters. #7 placement of I factor model V toss interbody space and posterior lateral gutters. Surgeon Bharath Zarate, DO Receiving Operator Irvin Hampton Estimated Blood Loss 200 Findings See Below Patient is 5 foot 4 weighing over 107 kg with a BMI in excess of 40. The patient's body habitus did contribute to significant technical difficulty required deeper retractors longer instruments in order to perform her procedure. This at least 50% increased operative time. Specimens None Indications This is a 66-year-old female who presents with above-mentioned diagnosis. She is undergoing significant gland status with multiple falls over the past week marked deficits to strength in lower extremities is been progressive in nature and is here for emergent decompression fusion. Description of Procedure Patient was met with identified and informed consent obtained. Patient was then taken to the operative suite underwent intubation placed in the prone position the Lorne table top Gen frame. All bony prominences well-padded eyes inspected to ensure no external pressure placed upon them. This point lumbar spine was prepped and draped in a sterile fashion. Sharp dissection with the assistance of Bovie cautery was performed down to and exposing the lamina and transverse processes of L4-L5 bilaterally. From caudal to cephalad fashion complete laminectomy L4 partial laminectomy of L3 was performed including bilateral medial facetectomies and foraminotomies addressing severe spinal stenosis. Pedicle screws were then placed in L4-5 bilaterally with assistance of fluoroscopy and the properly sized marielos placed. By way of a transfemoral approach and left P discectomy of L for L5 was performed endplates curetted to subcortical bleeding bone and a 10 x 22 mm spiral cage filled I factor tapped in position. The rods were then locked in final position bilaterally. The transverse processes of L4-L5 burred to subcortical bleeding bone. I factor bone of the vascular clamps versus autograft was placed in the posterior gutters. 15 round HAY inserted. The incision was then closed with 1 Vicryl the fascia 2-0 Vicryl subcutaneously and 4 Monocryl for final skin closure. Steri- Strip Steri-Strips placed. Patient waken taken to PACU in stable condition. Please note spinal cord monitoring was utilized at the procedure no changes noted. Lastly Irvin Hampton was present at the entire surgery and outpatient positioning complex portions of the surgery and final skin closure. I attest to the content of the Intraoperative Record and any orders documented therein. Any exceptions are noted below.
[2022-03-13] MEDS ORDERED: ceFAZolin SPECIAL PROCEDURE STOCK 1 GM ADDVIAL IV ONE (12:20)
[2022-03-13] MEDS ORDERED: BUPIVACAINE/EPINEPHRINE 0.25% 1:200,000 30 ML VIAL INFIL ONE (12:21)
[2022-03-13] MEDS: HYDROmorphone INJ 1 MG/ML SYRINGE IV PRN ×4 (12:49→13:04)
--- NOTE | 2022-03-13 13:26 | Anesthesiology Progress Note ---
Date of Service March 13, 2022 Anesthesia Post Procedure Vital Signs Vital Signs: Temp Pulse Resp BP BP Pulse Ox O2 Del Method 03/13/22 13:05 82 12 158/61 H 96 Oxymask 03/13/22 12:55 81 15 163/63 H 98 Oxymask 03/13/22 12:45 80 14 176/72 H 98 Oxymask 03/13/22 12:38 36.2 C L 80 14 170/71 H 98 Oxymask 03/13/22 09:43 36.5 C 80 18 125/66 98 Room Air 03/13/22 08:30 36.5 C 86 16 157/69 H 94 Room Air 03/12/22 22:45 36.5 C 79 16 113/68 95 Room Air 03/12/22 15:06 36.6 C 79 16 167/73 H 90 Room Air O2 Flow Rate 03/13/22 13:05 4 03/13/22 12:55 4 03/13/22 12:45 6 03/13/22 12:38 6 03/13/22 09:43 03/13/22 08:30 03/12/22 22:45 03/12/22 15:06 Pain Intensity Head: Pain Intensity: 6 Lower Back: Pain Intensity: 3 Transfer of Care Handoff Completed per policy Notes Mental Status: alert / awake / arousable Patient Amnestic to Procedure: Yes Nausea / Vomiting: adequately controlled Pain: adequately controlled Airway Patency, RR, SpO2: stable & adequate BP & HR: stable & adequate Hydration State: stable & adequate Anesthetic Complications: no major complications apparent
[2022-03-13] MEDS ORDERED: HYDROmorphone INJ 0.5 MG/0.5 ML SYR IV PRN (14:28)
[2022-03-13] MEDS ORDERED: diphenhydrAMINE Capsule 25 MG CAP PO PRN (14:28)
[2022-03-13] MEDS ORDERED: bisacodyL 10 MG SUPP PR PRN (14:28)
[2022-03-13] MEDS ORDERED: ACETAMINOPHEN 1,000 MG/100 ML VIAL IV PRN (14:28)
[2022-03-13] MEDS ORDERED: PROMETHAZINE HCL 12.5 MG in SODIUM CHLORIDE 0.9% 50 ML IV PRN (14:28)
[2022-03-13] MEDS ORDERED: SOD PHOSPHATE/SOD BIPHOSPHATE ENEMA 132 ML BTL PR PRN (14:28)
[2022-03-13] MEDS ORDERED: ACETAMINOPHEN 500 MG TAB PO PRN (14:28)
[2022-03-13] MEDS ORDERED: ONDANSETRON 4 MG OD TAB PO PRN (14:28)
[2022-03-13] MEDS ORDERED: MAGNESIUM HYDROXIDE SUSP 30 ML UDC PO PRN (14:28)
[2022-03-13] MEDS ORDERED: METOCLOPRAMIDE HCL INJ 5 MG/ML 2 ML VIAL IV PRN (14:28)
[2022-03-13] MEDS ORDERED: LORazepam 0.5 MG TAB PO PRN (14:28)
[2022-03-13] MEDS ORDERED: LORazepam 0.5 MG in SYRINGE 0 ML IV PRN (14:28)
[2022-03-13] MEDS ORDERED: hydrOXYzine HCl 25 MG TAB PO PRN (14:28)
[2022-03-13] MEDS ORDERED: HYDROmorphone INJ 1 MG/ML SYRINGE IV PRN (14:28)
[2022-03-13] MEDS ORDERED: FAMOTIDINE 20 MG TAB PO PRN (14:28)
[2022-03-13] MEDS ORDERED: ALUMINUM/MAGNESIUM SUSP 30 ML UDC PO PRN (14:28)
[2022-03-13] MEDS ORDERED: NALOXONE HCL 0.4 MG/1 ML VIAL/CARP IV PRN (14:28)
[2022-03-13] MEDS: LACTATED RINGER'S 1,000 ML IV SCH ×2 (14:42→22:21)
[2022-03-13] MEDS: ceFAZolin 2000MG 2,000 MG/15 ML SYR IV SCH (19:19)
[2022-03-13] MEDS: rOPINIRole HCL 2 MG TABLET PO SCH (20:24)
[2022-03-13] MEDS: DOCUSATE SODIUM/SENNA 50/8.6MG TAB PO SCH (20:24)
[2022-03-13] MEDS: PANTOprazole 40 MG TAB PO SCH (20:25)
[2022-03-14] MEDS: ceFAZolin 2000MG 2,000 MG/15 ML SYR IV SCH (01:46)
[2022-03-14] MEDS: oxyCODONE HCL IR 5 MG TAB (IMMEDIATE RELEASE) PO PRN ×3 (03:29→19:57)
[2022-03-14] MEDS: LACTATED RINGER'S 1,000 ML IV SCH (04:58)
[2022-03-14] MEDS: POLYETHYLENE (MIRALAX) 17 GM PACK PO SCH ×3 (05:47→17:44)
[2022-03-14] MEDS: DULoxetine HCL 60 MG CAP PO SCH (08:28)
[2022-03-14] MEDS: predniSONE 5 MG TAB PO SCH (08:28)
[2022-03-14] MEDS: METOPROLOL SUCC 25MG EXT REL TAB PO SCH (08:28)
[2022-03-14] MEDS: GABAPENTIN 100 MG CAP PO SCH ×3 (08:28→21:06)
--- NOTE | 2022-03-14 08:50 | Hospitalist Progress Note ---
Date of Service March 14, 2022 Assessment & Plan (1) Acute exacerbation of chronic low back pain: Plan: Admitted to Dr Zarate's service-- patient with PMHx significant for lumbar radiculopathy, seronegative arthritis/PMR/GCA, CKD III, HTN, L renal artery stenosis, superior mesenteric artery stenosis, HLD, hypothyroidism, s/p pacemaker for symptomatic bradycardia Patient with ongoing acute low back pain with inability to ambulate for more than 2-3 minutes at a time/sit for extended periods of time. 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 CXR obtained due to LE edema -- no acute process-- was continued on her usual diuretics, placed on hold this morning POD# 1 s/p#1 lumbar decompression bilateral medial facetectomies and foraminotomies L3- L4 L4-5 per #2 posterior spinal fusion L4-5 #3 placement posterior instrumentation L4-5 per #4 interbody fusion L4-5 #5 placement of Spira 10 x 22 mm cage at L4-5. #6 placement locally harvested morselized autograft and posterior gutters. #7 placement of I factor model V toss interbody space and posterior lateral gutters. with Dr Zarate 03/13 EBL 200cc hgb 11.4--> 10.7, acute blood loss anemia, also dilultional from IVF Pain control/antiemetics prn Bowel regimen -- hypoactive BS but passing gas, KUB ordered this evening, does show significant stool burden IVF per surgery, holding diuretics --> Cr improved, likely resume diuretics in AM 03/14 DVT proph- SCDs/esmer hose Start tx keflex for Ecoli UTI 03/14 Continues on prednisone 15mg daily -- no hypotension/need for stress dose steroids currently, monitor (2) Constipation: Plan: No BM in prior 2 days, however not totally abnormal, likely worsened by pain medications senna/docusate ordered, dulcolax x 1 now Of note, Ca 10.4 on admit, albumin 4.1. Is on Triamterene-HCTZ, torsemide 20mg QOD--> also per med rec, calcium 500+D3 BID --> DISCONTINUED CALCIUM SUPPLEMENTATION Ca 10.0 on AM labs Suspect related to medications. Vit D wnl, PTH 43.9 Renal US w/o obstruction Passing some gas but no BM --> monitor for post-op ileus, KUB this evening Is passing some gas Monitor overnight, consider backing down diet/increased bowel regimen/suppository if needed (3) HTN (hypertension): Plan: BP stable in setting of pain Had been continued on her losartan/triamterene-HCTZ/torsemide pre-op given LE edema w/ hold instructions for after surgery Torsemide 20mg Q48H (last dose 03/11), Triamterene/HCTZ 37.5/25mg (not given 03/12) discontinued with post-op orders --> CR improved, BP stable Continued to hold for today, no increased LE edema, resume torsemide 20mg tomor row, triamterene/HCTZ following if able Monitor for hypotension/need for stress dose steroids (4) CKD (chronic kidney disease), stage III: Plan: CKD stage III baseline -- had reported prior using lots of NSAIDs for pain relief, has avoided Given her torsemide yesterday and appeared dehydrated on exam today Diuretics placed on hold (no increased LE edema) and IVF ordered by primary service post-op --> holding for today, Cr improved 1.5--> 1.17 Planning to resume torsemide tomorrow if BP stable/Cr remains stable. No volume overload currently on exam (5) GERD (gastroesophageal reflux disease): Plan: Continue pantoprazole mag checked, 1.7--> IV dose ordered Repeat mag 2.0 (6) Restless leg syndrome: Plan: Continue Requip does also appear patient on daily ferrous sulfate, hgb stable and will hold off resuming this until bowels are moving (7) Hyperlipidemia: Plan: Continue statin (8) Hypothyroidism: Plan: -Continue levothyroxine , TSH 1.024 (9) Rheumatoid arthritis: Plan: Continue prednisone not needing stress dose steroids after her surgery Hydroxychloroquine on hold given surgery, discuss w/ rheum on timing for resuming (10) Status post placement of other cardiac pacemaker: Plan: placement noted due to hx syncope due to symptomatic bradycardia (11) Abnormal finding on urinalysis: Plan: UA obtained to r/o other causes of LBP Not symptomatic with increased frequency/burning, however UA w/ 2+ leuk est, 1+ bacteria, however epi>WBC and could be contaminant Renal US obtained given prior hx pyelo/stone, no obstruction/hydro Monitor urine cx/tx if symptomatic --> did have incontinence x 4 changed 4 underwear 03/13 Started keflex PO --> monitor response Plan continued inpatient stay started keflex for UTI monitor KUB for post-op ileus Admission and Anticipated Discharge Date Admission Date: March 11, 2022 Supervising Physician Co-Signing Physician Notes PA Supervision Note: I did not personally see or examine the patient today, but I verified all lynn points of ARJUN Schultz's assessment and plan with the following exceptions/additions: None Subjective eval after lunch, up in chair at bedside pain controlled currently but had to request at 09/16 and by the time medicated as due to being busy was creaping up. feeling much better no issues urinating although said she went through 4 pairs of underwear yesterday. discussed urine cx w/ bacteria. hypoactive BS and stating not passing much gas but denies abdominal pain/nausea/vomiting. does have some suprapubic discomfort. will start tx for UTI. Also encouraged ambulation -- worked with therapy and did lap in the shah this morning. If no increased gas by this afternoon/any discomfort will check KUB to eval but suspect could have been developing post-op ileus. To alert nursing of any worrisome symptoms. She also requested if I have business card for follow up as she only sees Dr King once a year . Review of Systems Review of Systems: All systems reviewed & are unremarkable except as noted in HPI & below Physical Exam Physical Exam: General: WD/WN obese female sitting up in chair, at bedside, NAD HEENT: head normocephalic, atraumatic, mmm, trachea midline without deviation Resp: CTAB, no w/c/r, on room air CV: RRR, no m/r/g, trace LE edema GI: hypoactive BS, suprapubic discomfort to palpation : no rosa MSK/Neuro: dressing c/d/i, HAY output bloody, strength equal b/l LE Skin: warm, dry Psych: AOx 3, pleasant and cooperative Results & Data Results & Data ([facility]) Vital Signs (Past 12 Hours) Vital Signs Temp Pulse Resp BP Pulse Ox O2 Del Method 03/14/22 07:04 36.5 C 70 18 139/64 95 Room Air 03/14/22 03:17 36.6 C 74 18 148/84 H 95 Room Air 03/13/22 23:14 36.5 C 73 18 144/80 H 96 Room Air Laboratory Results 03/14/22 03/14/22 Range/Units 08:18 08:18 WBC 17.17 H (4.8-10.8) K/ul RBC 3.61 L (3.93-5.22) M/uL Hgb 10.7 L (12.0-16.0) g/dl Hct 33.5 L (34.1-44.9) % MCV 92.8 (80.0-100.0) fL MCH 29.6 (25.0-34.0) pg MCHC 31.9 L (32.0-36.0) g/dL RDW Std Deviation 46.6 H (36.4-46.3) fL RDW Coeff of Rowdy 13.6 (11.5-14.5) % Plt Count 231 (130-400) K/uL MPV 11.8 (9.4-12.3) fL Immature Gran % (Auto) 0.6 % Neut % (Auto) 84.1 % Lymph % (Auto) 6.9 % Izard % (Auto) 8.3 % Eos % (Auto) 0.0 % Baso % (Auto) 0.1 % Neut # (Auto) 14.45 H (1.4-6.5) K/uL Lymph # (Auto) 1.18 L (1.2-3.4) K/uL Izard # (Auto) 1.42 H (0.24-0.82) K/uL Eos # (Auto) 0.00 (0-0.50) K/uL Baso # (Auto) 0.02 (0-0.2) K/uL Immature Gran # (Auto) 0.10 H (0.00-0.02) K/uL Sodium 139 (136-145) mmol/L Potassium 4.2 D (3.5-5.1) mmol/L Chloride 101 (98-107) mmol/L Carbon Dioxide 34 H (21-32) mmol/L Anion Gap 4 (3-11) BUN 38 H (6-23) mg/dl Creatinine 1.17 D (0.6-1.2) mg/dl Est Cr Clr Drug Dosing 58.0 ml/min Est GFR ( Amer) 56.6 ml/min Est GFR (Non-Af Amer) 48.9 ml/min BUN/Creatinine Ratio 32.5 H (10-20) Glucose 103 H (70-99(Fasting)) mg/dl Calcium 9.7 (8.5-10.1) mg/dl Diagnostic Findings 03/14/22 03/14/22 Range/Units 08:18 08:18 WBC 17.17 H (4.8-10.8) K/ul RBC 3.61 L (3.93-5.22) M/uL Hgb 10.7 L (12.0-16.0) g/dl Hct 33.5 L (34.1-44.9) % MCV 92.8 (80.0-100.0) fL MCH 29.6 (25.0-34.0) pg MCHC 31.9 L (32.0-36.0) g/dL RDW Std Deviation 46.6 H (36.4-46.3) fL RDW Coeff of Rowdy 13.6 (11.5-14.5) % Plt Count 231 (130-400) K/uL MPV 11.8 (9.4-12.3) fL Immature Gran % (Auto) 0.6 % Neut % (Auto) 84.1 % Lymph % (Auto) 6.9 % Izard % (Auto) 8.3 % Eos % (Auto) 0.0 % Baso % (Auto) 0.1 % Neut # (Auto) 14.45 H (1.4-6.5) K/uL Lymph # (Auto) 1.18 L (1.2-3.4) K/uL Izard # (Auto) 1.42 H (0.24-0.82) K/uL Eos # (Auto) 0.00 (0-0.50) K/uL Baso # (Auto) 0.02 (0-0.2) K/uL Immature Gran # (Auto) 0.10 H (0.00-0.02) K/uL Sodium 139 (136-145) mmol/L Potassium 4.2 D (3.5-5.1) mmol/L Chloride 101 (98-107) mmol/L Carbon Dioxide 34 H (21-32) mmol/L Anion Gap 4 (3-11) BUN 38 H (6-23) mg/dl Creatinine 1.17 D (0.6-1.2) mg/dl Est Cr Clr Drug Dosing 58.0 ml/min Est GFR ( Amer) 56.6 ml/min Est GFR (Non-Af Amer) 48.9 ml/min BUN/Creatinine Ratio 32.5 H (10-20) Glucose 103 H (70-99(Fasting)) mg/dl Calcium 9.7 (8.5-10.1) mg/dl PG Care Time/CCT Total # of Minutes Spent Total Time Spent with Patient: Total time spent is greater than 50% in coordination of care (as documented) at patient's floor/unit and/or counseling patient: Coding Level of Care Code 92702 Subseq Hosp Care Lvl 3 Diagnoses Acute exacerbation of chronic low back pain M54.50; G89.29 Constipation K59.00 HTN (hypertension) I10 CKD (chronic kidney disease), stage III N18.3 GERD (gastroesophageal reflux disease) K21.9 Restless leg syndrome G25.81 Hyperlipidemia E78.5 Hypothyroidism E03.9 Rheumatoid arthritis M06.9 Status post placement of other cardiac pacemaker Z95.0 Abnormal finding on urinalysis R82.90
[2022-03-14 08:53] LABS: Basophils # (auto) 0.02 K/uL (0-0.2); Basophils % (auto) 0.1 %; Hematocrit (blood only) 33.5 % (34.1-44.9); Hemoglobin 10.7 g/dl (12.0-16.0); Immature Granulocytes % (auto) 0.6 %; Lymphocytes # (auto) 1.18 K/uL (1.2-3.4); Lymphocytes % (auto) 6.9 %; Mean Corpuscular Hemoglobin 29.6 pg (25.0-34.0); Mean Corpuscular Hgb Conc 31.9 g/dL (32.0-36.0); Mean Corpuscular Volume 92.8 fL (80.0-100.0); Mean Platelet Volume 11.8 fL (9.4-12.3); Monocytes # (auto) 1.42 K/uL (0.24-0.82); Monocytes % (auto) 8.3 %; Neutrophils # (auto) 14.45 K/uL (1.4-6.5); Neutrophils % (auto) 84.1 %; Platelet Count 231 K/uL (130-400); RDW Coefficient of Variation 13.6 % (11.5-14.5); RDW Standard Deviation 46.6 fL (36.4-46.3); Red Blood Count 3.61 M/uL (3.93-5.22); White Blood Count 17.17 K/ul (4.8-10.8)
--- NOTE | 2022-03-14 09:03 | Orthopedic Progress Note ---
Date of Service March 14, 2022 Assessment & Plan (1) Neurogenic claudication due to lumbar spinal stenosis: Plan: The stomach initiate physical therapy today monitor her HAY output assess her progress about the week and hopefully home in the next few days. Admission and Anticipated Discharge Date Admission Date: March 11, 2022 Subjective Back pain markedly improved. Patient is already been up and ambulating last evening and this morning to the bathroom. She feels her leg strength is improved. She is excited that her blood pressure is already improved due to less pain. Physical Exam Physical Exam: On exam she is currently in bed. She is sitting up. She is good strength testing. It is definitely improved. Results & Data ([facility]) Vital Signs (Past 12 Hours) Vital Signs Temp Pulse Resp BP Pulse Ox O2 Del Method 03/14/22 07:04 36.5 C 70 18 139/64 95 Room Air 03/14/22 03:17 36.6 C 74 18 148/84 H 95 Room Air 03/13/22 23:14 36.5 C 73 18 144/80 H 96 Room Air
[2022-03-14 09:56] LABS: BUN Creatinine Ratio 32.5 (10-20); Calcium 9.7 mg/dl (8.5-10.1); Est GFR (African American) 56.6 ml/min; Est GFR (Non-African American) 48.9 ml/min; Potassium 4.2 mmol/L (3.5-5.1)
[2022-03-14] MEDS: LEVOTHYROXINE SODIUM 100 MCG TABLET PO SCH (12:10)
[2022-03-14] MEDS: rOPINIRole HCL 1 MG TABLET PO SCH (12:10)
--- NOTE | 2022-03-14 19:17 | XRay Report ---
XR KUB/Abdomen 1 view CLINICAL HISTORY: eval post-op ileus TECHNIQUE: 1 view of the abdomen was obtained. Comparison: None available at the time of this dictation. FINDINGS: Cholecystomy clips are seen in the right upper quadrant. Degenerative changes are seen in the visuali zed skeleton. Posterior fixation hardware is seen in the lumbar spine. No distended small bowel loops are seen. A moderate amount of stool is noted within the large bowel. IMPRESSION: Nonobstructive bowel gas pattern. ACT 112: Negative or not required by law. Electronically signed by: Josh Mayorga M.D. 03/14/2022 7:15 PM
[2022-03-14] MEDS ORDERED: bisacodyL 10 MG SUPP PR STA (19:22)
[2022-03-14] MEDS: cephALEXin 500 MG CAP PO SCH (21:05)
[2022-03-14] MEDS: DOCUSATE SODIUM/SENNA 50/8.6MG TAB PO SCH (21:06)
[2022-03-14] MEDS: rOPINIRole HCL 2 MG TABLET PO SCH (21:06)
[2022-03-14] MEDS: PANTOprazole 40 MG TAB PO SCH (21:08)
[2022-03-15] MEDS: POLYETHYLENE (MIRALAX) 17 GM PACK PO SCH ×4 (00:27→17:46)
[2022-03-15] MEDS: traMADol HCL 50 MG TABLET PO PRN ×2 (00:30→22:07)
[2022-03-15 07:45] LABS: Hematocrit (blood only) 33.9 % (34.1-44.9); Hemoglobin 10.9 g/dl (12.0-16.0); Mean Corpuscular Hgb Conc 32.2 g/dL (32.0-36.0); Mean Corpuscular Volume 93.4 fL (80.0-100.0); Mean Platelet Volume 11.7 fL (9.4-12.3); Platelet Count 217 K/uL (130-400); RDW Standard Deviation 47.5 fL (36.4-46.3); Red Blood Count 3.63 M/uL (3.93-5.22); White Blood Count 12.14 K/ul (4.8-10.8)
[2022-03-15 08:09] LABS: BUN Creatinine Ratio 36.5 (10-20); Calcium 9.8 mg/dl (8.5-10.1); Creatinine Clr Calc Pharmacy 65.2 ml/min; Est GFR (African American) 65.3 ml/min; Est GFR (Non-African American) 56.3 ml/min; Potassium 3.9 mmol/L (3.5-5.1)
--- NOTE | 2022-03-15 08:18 | Hospitalist Progress Note ---
Date of Service March 15, 2022 Assessment & Plan (1) Acute exacerbation of chronic low back pain: Plan: Admitted to Dr Zarate's service-- patient with PMHx significant for lumbar radiculopathy, seronegative arthritis/PMR/GCA, CKD III, HTN, L renal artery stenosis, superior mesenteric artery stenosis, HLD, hypothyroidism, s/p pacemaker for symptomatic bradycardia Patient with ongoing acute low back pain with inability to ambulate for more than 2-3 minutes at a time/sit for extended periods of time. Had failed outpatient conservative treatments including medication management with Neurontin/Cymbalta, PT, ocular care technician, and pain management. POD# 2 s/p#1 lumbar decompression bilateral medial facetectomies and foraminotomies L3- L4 L4-5 per #2 posterior spinal fusion L4-5 #3 placement posterior instrumentation L4-5 per #4 interbody fusion L4-5 #5 placement of Spira 10 x 22 mm cage at L4-5. #6 placement locally harvested morselized autograft and posterior gutters. #7 placement of I factor model V toss interbody space and posterior lateral gutters. with Dr Zarate / EBL 200cc hgb 11.4--> 10.7, acute blood loss anemia, also dilutional from IVF since discontinued Pain control/bowel regiment/PT/OT per primary service Did check KUB last evening for eval of ileus (nonobstr pattern) , suppository x 1. Small BM reported, increased flatus. Witnessed walking the halls with therapy and walker today. Encouraged ambulation as able DVT proph - SCDs/esmer hose of note, patient Cr bumped to 1.53 prior to surgery, diuretics placed on hold. Cr improved and 1.04 on am labs. Weight is up on check and given torsemide 20mg today however little dehydrated on exam and endorses happens at home standing up and feeling dizzy. Discussed could be orthostatic hypotension/dehydration, also vasovagal from prior pain in past (not current cause). --> she is on alternating doses of triamterene-HCTZ QOD with torsemide 20mg QOD --> discussed would hold off the torsemide and rather continue the triamterene- HCTZ given not on supplemental K with the torsemide and could be having alternating electrolyte abnormalities as well. Recs to start that daily for tomorrow/also restriction of free water intake (reports drinking LOTS of water at home). 2000ml /day limit (2) Constipation: Plan: No BM in prior 2 days, however not totally abnormal, likely worsened by pain medications D/c PO Ca supplementation taking outpatient +BM after suppository evening 03/14 after KUB without obstructive pattern/ileus Continued bowel regimen Passing more gas, continued ambulation (3) HTN (hypertension): Plan: BP stable in setting of pain, no hypotension to suggest need for stress dose steroids Torsemide 20mg given 03/15 for increased weight gain/reported edema. No SOB. Discussed as above, ,would d/c the torsemide and continue daily just the triamterene/HCTZ and monitoring of weight/BP Monitor labs/weight in AM BP currently 137/74 (4) CKD (chronic kidney disease), stage III: Plan: CKD stage III baseline -- had reported prior using lots of NSAIDs for pain relief, has avoided since that time See above -- plans to continue triamterene/HCTZ daily at discharge which will also make medication list easier/compliance Encouraged low salt diet (reports watching this/not eating soups/frozen items) however reported lots of water intake Cr stable, monitor in AM (5) GERD (gastroesophageal reflux disease): Plan: Continue pantoprazole Mag 1.7 --> iv replacement ordered 2.0 on repeat (6) Restless leg syndrome: Plan: Continue Requip does also appear patient on daily ferrous sulfate, hgb stable and will hold off resuming this until bowels are moving (7) Hyperlipidemia: Plan: Continue statin (8) Hypothyroidism: Plan: -Continue levothyroxine , TSH 1.024 (9) Rheumatoid arthritis: Plan: Continue prednisone not needing stress dose steroids after her surgery Hydroxychloroquine on hold given surgery, she should discuss w/ rheum on timing for resuming to prevent issues with bleeding (10) Status post placement of other cardiac pacemaker: Plan: placement noted due to hx syncope due to symptomatic bradycardia she does note occasional lightheadedness when standing, hx PACs. On metoprolol 25mg XL daily -- she notes this had been twice daily but was backed to once daily due to tolerance/feeling like she was going to pass out (11) Abnormal finding on urinalysis: Plan: Abx with Keflex for UTI started 03/14 --> denied symptoms in past when septic with UTI as well. Continue 5-7 day total course at d/c WBC improving , afebrile. On chronic steroids Plan continued inpatient stay hospitalist service will follow along for tomorrow but if stable with above changes will possible sign off tomorrow Per patient, plans for discharge on Wednesday per Dr Zarate Admission and Anticipated Discharge Date Admission Date: March 11, 2022 Supervising Physician Co-Signing Physician Notes PA Supervision Note: I did not personally see or examine the patient today, but I verified all lynn points of ARJUN Schultz's assessment and plan with the following exceptions/additions: None Subjective eval this morning small BM passing more gas pain controlled has some increased weight gain and given her torsemide this morning she states she had recently been switched from lasix to torsemide also endorses drinking LOTs of water daily and wondering why she gets such fluid retention and also inquiring about dizziness with standing. Discussed diuretics/possible orthostatic hypotension, also could consider drops in her K w/ torsemide on Q2D dosing and would rec continue just the HCTZ/triamterene daily. She notes this was triamterene up to twice daily with twice daily metoprolol and this was decreased to once a day outpatient . No fever/chills, chest pain. No further incontinence issues. Planning for d/c on Wednesday. Will check orthostatic VS. Also check A1c w/ AM labs given increased thirst, she has concerns possible underlying DM. No prior diagnosis for such. Review of Systems Review of Systems: All systems reviewed & are unremarkable except as noted in HPI & below Physical Exam Physical Exam: General: WD/WN obese female sitting up in chair, NAD, improvement in pain reported HEENT: normocephalic, mm DRY, trachea midline without deviation Resp: CTAB, no w/c/r, on room air 99% CV: RRR, no m/r/g, trace LE edema, esmer hose in place GI: +BS (improvement in bowel sounds), obese, nontender : no rosa MSK/Neuro: dressing c/d/i, HAY output bloody, strength equal b/l LE Skin: warm, dry Psych: AOx 3, pleasant and cooperative Results & Data Results & Data ([facility]) Vital Signs (Past 12 Hours) Vital Signs Temp Pulse Resp BP Pulse Ox O2 Del Method 03/15/22 07:47 36.7 C 76 16 137/74 99 Room Air 03/14/22 22:25 36.4 C L 76 18 138/74 97 Room Air Laboratory Results 03/15/22 03/15/22 03/14/22 Range/Units 07:11 07:11 08:18 WBC 12.14 H (4.8-10.8) K/ul RBC 3.63 L (3.93-5.22) M/uL Hgb 10.9 L (12.0-16.0) g/dl Hct 33.9 L (34.1-44.9) % MCV 93.4 (80.0-100.0) fL MCH 30.0 (25.0-34.0) pg MCHC 32.2 (32.0-36.0) g/dL RDW Std Deviation 47.5 H (36.4-46.3) fL RDW Coeff of Rowdy 14.0 (11.5-14.5) % Plt Count 217 (130-400) K/uL MPV 11.7 (9.4-12.3) fL Sodium 140 139 (136-145) mmol/L Potassium 3.9 4.2 D (3.5-5.1) mmol/L Chloride 101 101 (98-107) mmol/L Carbon Dioxide 35 H 34 H (21-32) mmol/L Anion Gap 4 4 (3-11) BUN 38 H 38 H (6-23) mg/dl Creatinine 1.04 1.17 D (0.6-1.2) mg/dl Est Cr Clr Drug Dosing 65.2 58.0 ml/min Est GFR ( Amer) 65.3 56.6 ml/min Est GFR (Non-Af Amer) 56.3 48.9 ml/min BUN/Creatinine Ratio 36.5 H 32.5 H (10-20) Glucose 104 H 103 H (70-99(Fasting)) mg/dl Calcium 9.8 9.7 (8.5-10.1) mg/dl Magnesium 2.0 (1.7-2.4) mg/dl Diagnostic Findings KUB X-Ray 03/14/22 17:30 XR KUB/Abdomen 1 view CLINICAL HISTORY: eval post-op ileus TECHNIQUE: 1 view of the abdomen was obtained. Comparison: None available at the time of this dictation. FINDINGS: Cholecystomy clips are seen in the right upper quadrant. Degenerative changes are seen in the visualized skeleton. Posterior fixation hardware is seen in the lumbar spine. No distended small bowel loops are seen. A moderate amount of stool is noted within the large bowel. IMPRESSION: Nonobstructive bowel gas pattern. ACT 112: Negative or not required by law. Electronically signed by: Josh Mayorga M.D. 03/14/2022 7:15 PM PG Care Time/CCT Total # of Minutes Spent Total Time Spent with Patient: Total time spent is greater than 50% in coordination of care (as documented) at patient's floor/unit and/or counseling patient: Coding Level of Care Code 77395 Subseq Hosp Care Lvl 3 Diagnoses Acute exacerbation of chronic low back pain M54.50; G89.29 Constipation K59.00 HTN (hypertension) I10 CKD (chronic kidney disease), stage III N18.3 GERD (gastroesophageal reflux disease) K21.9 Restless leg syndrome G25.81 Hyperlipidemia E78.5 Hypothyroidism E03.9 Rheumatoid arthritis M06.9 Status post placement of other cardiac pacemaker Z95.0 Abnormal finding on urinalysis R82.90
[2022-03-15] MEDS ORDERED: TORSEMIDE 20 MG TAB PO SCH (08:30)
[2022-03-15] MEDS: METOPROLOL SUCC 25MG EXT REL TAB PO SCH (08:33)
[2022-03-15] MEDS: predniSONE 5 MG TAB PO SCH (08:33)
[2022-03-15] MEDS: GABAPENTIN 100 MG CAP PO SCH ×3 (08:33→21:44)
[2022-03-15] MEDS: DULoxetine HCL 60 MG CAP PO SCH (08:33)
[2022-03-15] MEDS: cephALEXin 500 MG CAP PO SCH ×2 (08:33→21:43)
--- NOTE | 2022-03-15 09:55 | Orthopedic Progress Note ---
Date of Service March 15, 2022 Assessment & Plan (1) Spondylolisthesis at L4-L5 level: Plan: Today we will continue physical therapy advance her bowel regiment monitor HAY output anticipate possible discharge home tomorrow. Admission and Anticipated Discharge Date Admission Date: March 11, 2022 Subjective Back pain leg pain markedly improved. Her bowels are uncomfortable. She is passing gas. Had small bowel movement. She is tolerating physical therapy. Physical Exam Physical Exam: On exam she is in the chair at the bedside. Suspected testing. Results & Data ([facility]) Vital Signs (Past 12 Hours) Vital Signs Temp Pulse Resp BP Pulse Ox O2 Del Method 03/15/22 07:47 36.7 C 76 16 137/74 99 Room Air
[2022-03-15] MEDS: LEVOTHYROXINE SODIUM 100 MCG TABLET PO SCH (12:05)
[2022-03-15] MEDS: rOPINIRole HCL 1 MG TABLET PO SCH (12:05)
[2022-03-15] MEDS: DOCUSATE SODIUM/SENNA 50/8.6MG TAB PO SCH (21:43)
[2022-03-15] MEDS: rOPINIRole HCL 2 MG TABLET PO SCH (21:44)
[2022-03-15] MEDS: PANTOprazole 40 MG TAB PO SCH (21:44)
[2022-03-16] MEDS: POLYETHYLENE (MIRALAX) 17 GM PACK PO SCH ×3 (00:07→12:31)
[2022-03-16 07:42] LABS: Hematocrit (blood only) 30.7 % (34.1-44.9); Hemoglobin 9.9 g/dl (12.0-16.0); Mean Corpuscular Hemoglobin 29.3 pg (25.0-34.0); Mean Corpuscular Hgb Conc 32.2 g/dL (32.0-36.0); Mean Corpuscular Volume 90.8 fL (80.0-100.0); Mean Platelet Volume 11.9 fL (9.4-12.3); Platelet Count 186 K/uL (130-400); RDW Coefficient of Variation 13.6 % (11.5-14.5); RDW Standard Deviation 44.9 fL (36.4-46.3); Red Blood Count 3.38 M/uL (3.93-5.22); White Blood Count 9.76 K/ul (4.8-10.8)
[2022-03-16] MEDS: DULoxetine HCL 60 MG CAP PO SCH (07:47)
[2022-03-16] MEDS: GABAPENTIN 100 MG CAP PO SCH (07:47)
[2022-03-16] MEDS: METOPROLOL SUCC 25MG EXT REL TAB PO SCH (07:47)
[2022-03-16] MEDS: predniSONE 5 MG TAB PO SCH (07:47)
[2022-03-16] MEDS: cephALEXin 500 MG CAP PO SCH (07:47)
[2022-03-16 08:07] LABS: BUN Creatinine Ratio 30.4 (10-20); Calcium 9.3 mg/dl (8.5-10.1); Creatinine Clr Calc Pharmacy 61.2 ml/min; Est GFR (African American) 59.7 ml/min; Est GFR (Non-African American) 51.5 ml/min; Potassium 3.6 mmol/L (3.5-5.1)
[2022-03-16 08:09] LABS: Estimated Average Glucose 100 mg/dl; Hemoglobin A1C 5.1 % (4.5-5.6)
--- NOTE | 2022-03-16 08:38 | Hospitalist Progress Note ---
Date of Service March 16, 2022 Assessment & Plan (1) Acute exacerbation of chronic low back pain: Plan: Admitted to Dr Zarate's service-- patient with PMHx significant for lumbar radiculopathy, seronegative arthritis/PMR/GCA, CKD III, HTN, L renal artery stenosis, superior mesenteric artery stenosis, HLD, hypothyroidism, s/p pacemaker for symptomatic bradycardia Patient with ongoing acute low back pain with inability to ambulate for more than 2-3 minutes at a time/sit for extended periods of time. Had failed outpatient conservative treatments including medication management with Neurontin/Cymbalta, PT, career development consultant, and pain management. POD# 3 s/p#1 lumbar decompression bilateral medial facetectomies and foraminotomies L3- L4 L4-5 per #2 posterior spinal fusion L4-5 #3 placement posterior instrumentation L4-5 per #4 interbody fusion L4-5 #5 placement of Spira 10 x 22 mm cage at L4-5. #6 placement locally harvested morselized autograft and posterior gutters. #7 placement of I factor model V toss interbody space and posterior lateral gutters. with Dr Zarate / EBL 200cc hgb 11.4--> 10.7--> 9.9, acute blood loss anemia, also dilutional from IVF since discontinued Pain control/bowel regiment/PT/OT per primary service KUB w/ stool -- suppository x 1, +BM, continued bowel regimen and again BM this morning DVT proph - SCDs/esmer hose Urine cx obtained --> ecoli, started on keflex renally dosed prior for elevated Cr, adjusted at discharge and sent rx to complete course Of note, patient had been on alternating HCTZ-triamtere and torsemide --> discussed limiting free water intake/monitoring and weights at home and to continue triamterene-HCTZ combination pill at dischage daily and follow up with PCP outpatient Cr improved and stayed stable, 1.12 (2) Constipation: Plan: Bowel regimen, +BM, to continue at discharge (3) HTN (hypertension): Plan: BP stable in setting of pain, no hypotension to suggest need for stress dose steroids Torsemide 20mg given 03/15 for increased weight gain/reported edema. No SOB and changed to daily triamterene-HCTZ at discharge and monitor outpatient/follow up PCP BP 128/76 prior to discharge NO HYPOTENSION during inpatient stay (4) CKD (chronic kidney disease), stage III: Plan: CKD stage III baseline -- had reported prior using lots of NSAIDs for pain relief, has avoided since that time See above -- plans to continue triamterene/HCTZ daily at discharge which will also make medication list easier/compliance Encouraged low salt diet (reports watching this/not eating soups/frozen items) however reported lots of water intake Cr stable (5) GERD (gastroesophageal reflux disease): Plan: Continue pantoprazole Mag 1.7 --> iv replacement ordered 2.0 on repeat (6) Restless leg syndrome: Plan: Continue Requip does also appear patient on daily ferrous sulfate, hgb stable and will hold off resuming this until bowels are moving -- encouraged continued bowel regimen at discharge to prevent constipation (7) Hyperlipidemia: Plan: Continue statin (8) Hypothyroidism: Plan: -Continue levothyroxine , TSH 1.024 (9) Rheumatoid arthritis: Plan: Continue prednisone not needing stress dose steroids after her surgery Hydroxychloroquine on hold given surgery, she should discuss w/ rheum on timing for resuming to prevent issues with bleeding (10) Status post placement of other cardiac pacemaker: Plan: placement noted due to hx syncope due to symptomatic bradycardia she does note occasional lightheadedness when standing, hx PACs. On metoprolol 25mg XL daily -- she notes this had been twice daily but was backed to once daily due to tolerance/feeling like she was going to pass out --> no further significant episodes inpatient and changed to same diuretic daily and to monitor BP/weights at home Outpt f/u cards as needed (11) Abnormal finding on urinalysis: Plan: Abx with Keflex for UTI started 03/14 --> denied symptoms in past when septic with UTI as well. WBC improving, actually normal prior to discharge on chronic steroids Sent abx to complete course for ecoli UTI (12) JACOB (obstructive sleep apnea): Plan: OF note, was discussing possible need for outpatient sleep study/underlying sleep apnea Patient DOES have JACOB, DOES have CPAP -- she did not bring to the hospital, st ates not really liking to use this at home either as it "gets in the way" Discussed should have increased compliance and should also help with symptoms of heart failure --> suspect elevated CO2 level 2nd to not using her CPAP during inpatient stay, no issues with diarrhea, and moving her bowels as above Plan planning for discharge per primary service today patient stable for discharge hospitalist service signed off please call with questions/concerns Admission and Anticipated Discharge Date Admission Date: March 11, 2022 Supervising Physician Co-Signing Physician Notes ARJUN Supervision Note: I did not personally see or examine the patient today, but I verified all lynn points of ARJUN Schultz's assessment and plan with the following exceptions/additions: None Subjective eval this morning pain controlled no lightheaded/dizziness to continue the triamterene-HCTZ daily, monitor weights and follow up with PCP close. Consider torsemide but only if needed for weight gain. Added the abx for her UTI to medication list. Ride to be here this afternoon. Discussed monitoring fluid intake at home. Also of note, patient does have hx JACOB and has CPAP at home (although reports doesn't like to use it much as it gets in the way). Encouraged continued compliance . Stable for d/c Review of Systems Review of Systems: All systems reviewed & are unremarkable except as noted in HPI & below Physical Exam Physical Exam: General: WD/WN obese female sitting up in chair, NAD, improvement in pain reported, feeling well, looks comfortable HEENT: normocephalic, mmm, trachea midline without deviation Resp: CTAB, no w/c/r, on room air 98% CV: RRR, no m/r/g, trace-1+ LE edema, esmer hose in place GI: +BS , obese, nontender : no rosa MSK/Neuro: dressing c/d/i, HAY output bloody, strength equal b/l LE Skin: warm, dry Psych: AOx 3, pleasant and cooperative Results & Data Results & Data ([facility]) Vital Signs (Past 12 Hours) Vital Signs Temp Pulse Resp BP BP Pulse Ox O2 Del Method 03/16/22 07:15 36.7 C 81 16 128/76 98 Room Air 03/15/22 22:19 36.8 C 79 18 143/66 H 97 Room Air Laboratory Results 03/16/22 03/16/22 03/16/22 Range/Units 06:59 06:59 06:59 WBC 9.76 (4.8-10.8) K/ul RBC 3.38 L (3.93-5.22) M/uL Hgb 9.9 L (12.0-16.0) g/dl Hct 30.7 L (34.1-44.9) % MCV 90.8 (80.0-100.0) fL MCH 29.3 (25.0-34.0) pg MCHC 32.2 (32.0-36.0) g/dL RDW Std Deviation 44.9 (36.4-46.3) fL RDW Coeff of Rowdy 13.6 (11.5-14.5) % Plt Count 186 (130-400) K/uL MPV 11.9 (9.4-12.3) fL Sodium 141 (136-145) mmol/L Potassium 3.6 (3.5-5.1) mmol/L Chloride 99 (98-107) mmol/L Carbon Dioxide 37 H (21-32) mmol/L Anion Gap 5 (3-11) BUN 34 H (6-23) mg/dl Creatinine 1.12 (0.6-1.2) mg/dl Est Cr Clr Drug Dosing 61.2 ml/min Est GFR ( Amer) 59.7 ml/min Est GFR (Non-Af Amer) 51.5 ml/min BUN/Creatinine Ratio 30.4 H (10-20) Glucose 93 (70-99(Fasting)) mg/dl Estimat Average Glucose 100 mg/dl Hemoglobin A1c 5.1 (4.5-5.6) % Calcium 9.3 (8.5-10.1) mg/dl PG Care Time/CCT Total # of Minutes Spent Total Time Spent with Patient: Total time spent is greater than 50% in coordination of care (as documented) at patient's floor/unit and/or counseling patient: Coding Level of Care Code 84253 Subseq Hosp Care Lvl 3 Diagnoses Acute exacerbation of chronic low back pain M54.50; G89.29 Constipation K59.00 HTN (hypertension) I10 CKD (chronic kidney disease), stage III N18.3 GERD (gastroesophageal reflux disease) K21.9 Restless leg syndrome G25.81 Hyperlipidemia E78.5 Hypothyroidism E03.9 Rheumatoid arthritis M06.9 Status post placement of other cardiac pacemaker Z95.0 Abnormal finding on urinalysis R82.90 JACOB (obstructive sleep apnea) G47.33
[2022-03-16] MEDS ORDERED: cephALEXin 500 MG CAP PO SCH ×2 (09:00→13:00)
[2022-03-16] MEDS ORDERED: TRIAMTERENE/HCTZ 37.5/25MG CAP PO SCH (09:00)
--- NOTE | 2022-03-16 11:05 | Discharge Summary ---
Date of Service March 16, 2022 Admission HPI Per Admitting Provider Is a pleasant 66-year-old female well-known to us. She is actually scheduled for upcoming surgical intervention with Dr. Zarate this March 13. Unfortunately her insurance did not authorize her surgery. She presents to the ER this morning due to worsening back and bilateral lower extremity symptoms. It affects both legs equally. Standing 2 or 3 minutes or walking this length of time exacerbate her pain. It goes down the bilateral buttock, posterior lateral thighs, calves to her feet. Seated position is palliative. Symptoms have been ongoing for months but really progressively worsening over the past week or 2. She reports the pain to be a 10 out of 10 at home with ambulation. she ambulates with a cane at home. She is on Neurontin and Cymbalta for pain control at home. Denies bowel or bladder changes. She has just completed 8 weeks of physical therapy without any improvement. She sees Dr. Leiva for chiropractor treatment again with only modest results. She has had pain management injections last year with [facility]. Principal Diagnosis Lumbar spinal stenosis with neurogenic claudication Discharge Data Allergies Allergy/AdvReac Type Severity Reaction Status Date / Time rifampin Allergy Intermediate cardiac Verified 03/11/22 11:30 arrhymia + renal failure Consultations 03/11/22 14:53 Consult Internal Medicine Routine Procedures Performed Operation Date: 03/13/22 07:00 Actual Procedures p #1 lumbar decompression bilateral medial facetectomies and foraminotomies L3- L4 L4-5 per #2 posterior spinal fusion L4-5 #3 placement posterior instrumentation L4-5 per #4 interbody fusion L4-5 #5 placement of Spira 10 x 22 mm cage at L4-5. #6 placement locally harvested morselized autograft and posterior gutters. #7 placement of I factor model V toss interbody space and posterior lateral gutters. Spinal cord monitoring. - Bharath Zarate, DO Ordered Studies 03/11/22 09:33 MRI Lumbar Spine [MR lumbar spine wo con] Stat 03/12/22 17:34 US renal/blad retro comp Urgent Hospital Course (1) Neurogenic claudication due to lumbar spinal stenosis: Patient was admitted with severe back and bilateral leg pain with progressive weakness underwent emergent decompression fusion. She tolerated procedure well was taken to orthopedic for postoperative. Postop day #1 she was up and ambulating marked improvement versus pain and steady improvement of her strength of the course of the next 2 days. HAY drain decreased appropriately. Subsequent discharge home. Discharge orders instructions found in chart for further review. Total Time Total Time Spent Total Time Spent (In Minutes): 20 minutes Discharge Plan Discharge Items Patient Disposition: Home - Self-Care Reason For Visit: POSTOP Discharge Diagnosis: Lumbar spinal stenosis with spondylolisthesis and progressive neuro deficit Activity: As commented below Non-emergency contact: Primary Care Provider Call non-emergency contact if: you have any medication questions Follow-up/Referrals: Michael King MD [Primary Care Provider] - Diet: Regular Addtl Attending Provider Instructions: ACTIVITY RECOMMENDATIONS: SELF CARE INSTRUCTIONS AFTER THORACIC/LUMBAR FUSIONS 1. You may walk to your tolerance. It is good exercise for your legs and back. Expect some back and intermittent leg aches and pains. 2. You may perform "counter-top" level activities (make a sandwich, alis with a project, etc.). 3. No bending or lifting of more than 10 pounds or back twisting of any nature (roll like a log when turning in bed). 4. You may ride in a car for 20-30 minutes at a time. No driving until after your first visit with your doctor. 5. Frequent changes of position and restricting sitting to 30 minutes at a time will help limit the amount of back spasms and stiffness you may experience. 6. You may discontinue the use of ambulatory aids (cane, crutches, etc.) once your strength and confidence allow. 7. You may lactation coordinator the shower and let water strike your incision when you arrive home at least once daily. Do not take a tub bath, sit in a hot tub or go into a swimming pool until after your first recheck in the office. SPECIAL CARE INSTRUCTIONS: VERY IMPORTANT TO READ AND REVIEW A. Your surgical incision has been closed with a cosmetic suture under the skin that will dissolve in about 6 weeks. In 14 days, you can use a pair of clean scissors and cut the suture that is left outside of the skin at the ends of your incision. 1. The small skin tapes can be removed 7 days after surgery if they have not fallen off by that point. 2. You may keep the wound open to air as much as possible to promote healing after post-op day number 5 unless told otherwise by your doctor. 3. If you think the wound looks like it is becoming infected (redness or worsening drainage) and/or you are experiencing fever, chill or worsening back pain and muscle spasms, contact the office so that we may evaluate you as soon as possible. B. Complications are uncommon, but please contact us if you have any signs or symptoms of: 1. wound infection (fever higher than 102.5 degrees F, redness, separation of wound, drainage, or increasing pain from the incision) 2. blood clots in legs (pain, swelling, redness and warmth in legs) 3. urinary tract infection (fever higher than 102.5 degrees F, burning upon urination or increased frequency of urination) 4. nerve problems (inability to walk on your toes or heels, numbness, loss of bowel or bladder control) 5. any other symptoms that concern you C. Please call the office at if you have any concerns or questions about your operation or recovery. D. No smoking! Smoking drastically decreases the chance of a solid fusion. E. Do not take any anti-inflammatory medications (Indocin, Advil, Motrin, Aspirin, Naprosyn, etc.) as these may inhibit the chance of a solid fusion. Tylenol is okay to take for pain. MANAGING PAIN AFTER SPINAL SURGERY 1. Narcotic medication is intended for short-term use and will be provided for surgical pain. Surgical pain usually lasts for a period of 4-6 weeks. Narcotic medication includes Percocet, Vicodin, Darvocet, Tylenol #3 or Lortab. 2. Longer-term pain is more appropriately treated with non-narcotic medication such as Tylenol ES. 3. Muscle spasm is not appropriately treated with narcotics. Muscle relaxers such as Soma, Flexeril or Skelaxin can be used along with Tylenol ES. 4. Remember that we all live with some "aches and pains". This is not unusual or uncommon after an injury or as we get older. a. Back pain is expected and may include muscle spasms for 4 to 6 weeks after surgery. The pain should gradually improve. If the pain worsens for no apparent reason, please contact the office. b. Intermittent leg pain may also be experienced and should not be concerned about unless it worsens for no apparent reason. If so, please contact the office. 5. We will provide appropriate medication within the normal guidelines of their prescribed use. We will also be very cautious and aware of potential abuse and extended duration of patients' medication needs. a. Pain medications are for your comfort and to assist with sleep and rest so that the tissue can heal. They are not provided in order to return to normal activity and should not be used through the day. To do so or worsening pain at night can result from ongoing tissue damage and development of tolerance to the prescribed medicine. 6. Please allow 2-3 days to process refills. Prescriptions will not be mailed but must be picked up at the office. FOLLOW UP VISIT: Keep your scheduled follow-up appointment. Any questions, please call the office at . Pending Studies at Discharge: No Stand-Alone Forms: [facility] [place] [employer], Smoking Cessation Medications and DC Order Prescriptions: New tramadol 50 mg tablet 50 mg PO Q6H PRN (Reason: pain, moderate) Qty: 30 0RF oxycodone 5 mg tablet 5 mg PO Q6H PRN (Reason: pain, severe) Qty: 30 0RF Continued gabapentin 100 mg capsule 100 mg PO TID Qty: 270 3RF duloxetine [Cymbalta] 60 mg capsule,delayed release(DR/EC) 60 mg PO QAM Label Comments: TAKES FOR PAIN Calcium 600 + D(3) 600 mg calcium- 200 unit Capsule 1 tab PO BID ferrous sulfate [Feosol] 325 mg (65 mg iron) tablet 325 mg PO QAM Label Comments: TAKING DAILY ONLY QAM B-complex with vitamin C Capsule 1 cap PO QAM ascorbate calcium (vitamin C) 500 mg tablet 1 g PO QPM docusate sodium [Dulcolax Stool Softener (dss)] 100 mg Capsule 100 mg PO PM magnesium 250 mg tablet 500 mg PO QAM pantoprazole 40 mg tablet,delayed release (DR/EC) 40 mg PO HS losartan 100 mg tablet 100 mg PO QAM levothyroxine 100 mcg capsule 100 mcg PO QDL Label Comments: TAKES AT 3PM metoprolol succinate 25 mg tablet extended release 24 hr 25 mg PO DAILY prednisone 5 mg tablet 15 mg PO QAM ropinirole 1 mg tablet 2 mg PO HS ropinirole 1 mg tablet 1 mg PO DAILY Rx Instructions: takes at 1200 trazodone 50 mg tablet 50 mg PO HS PRN (Reason: Sleep) aspirin 81 mg tablet,delayed release (DR/EC) 81 mg PO QPM hydroxychloroquine 200 mg tablet 200 mg PO AMHS Probiotic 20 billion cell Capsule 20,000 mmu cells PO DAILY Changed triamterene-hydrochlorothiazid 37.5-25 mg capsule 1 cap PO DAILY Qty: 30 0RF Discontinued torsemide 20 mg tablet 20 mg PO Q OTHER DAY Rx Instructions: Take 1 tablet by mouth every other day (alternate with Triamterene- Hydrochlorothiazide 37.5-25 mg every other day. Discharge Orders: Discharge Order (Routine); Ordered 03/16/22 Ordered By: Bharath Zarate Admission Data Admit Date/Time: 03/11/22 09:39 Attending Provider: Bharath Zarate Admit Provider: Bharath Zarate Primary Care Provider: Michael King Other Providers: Enedelia Gallegos ; Felipe Mccann
[2022-03-16] MEDS: rOPINIRole HCL 1 MG TABLET PO SCH (12:29)
[2022-03-16] MEDS: LEVOTHYROXINE SODIUM 100 MCG TABLET PO SCH (12:29)
== END 2022-03-16 13:29 | disposition home or self-care (01) | DRG 454 ==
LOC: ED 08:19 → EDINP 09:39 → INTOOBSV 09:39 → 3W 14:48

== ENCOUNTER 2022-04-24 22:22 | Observation (INO) ==
[2022-04-24] MEDS ORDERED: ASPIRIN CHEW 324 MG PO STA (22:36)
[2022-04-24 23:10] LABS: Basophils # (auto) 0.08 K/uL (0-0.2); Basophils % (auto) 0.7 %; Eosinophils # (auto) 0.18 K/uL (0-0.50); Eosinophils % (auto) 1.5 %; Hematocrit (blood only) 39.8 % (34.1-44.9); Hemoglobin 12.4 g/dl (12.0-16.0); Immature Granulocytes # (auto) 0.15 K/uL (0.00-0.02); Immature Granulocytes % (auto) 1.2 %; Lymphocytes # (auto) 2.41 K/uL (1.2-3.4); Lymphocytes % (auto) 19.7 %; Mean Corpuscular Hemoglobin 27.9 pg (25.0-34.0); Mean Corpuscular Hgb Conc 31.2 g/dL (32.0-36.0); Mean Corpuscular Volume 89.6 fL (80.0-100.0); Mean Platelet Volume 11.4 fL (9.4-12.3); Monocytes # (auto) 1.25 K/uL (0.24-0.82); Monocytes % (auto) 10.2 %; Neutrophils # (auto) 8.14 K/uL (1.4-6.5); Neutrophils % (auto) 66.7 %; Platelet Count 274 K/uL (130-400); RDW Coefficient of Variation 13.6 % (11.5-14.5); RDW Standard Deviation 44.7 fL (36.4-46.3); Red Blood Count 4.44 M/uL (3.93-5.22); White Blood Count 12.21 K/ul (4.8-10.8)
--- NOTE | 2022-04-24 23:25 | XRay Report ---
SINGLE VIEW CHEST CLINICAL HISTORY: Atypical chest pain. FINDINGS: An AP, portable, upright chest radiograph is compared to study dated 03/26/2022 and correla esmer with chest CT dated 02/01/2022. A 2-lead cardiac pacemaker is unchanged in position and partially obscures the left lower chest. The cardiomediastinal silhouette is top normal for projection noted at herosclerotic calcification of the thoracic aorta. The pulmonary vasculature is noncontrast. Chronic interstitial thickening is similar to previous. There is mild bibasilar scarring/atelectasis. The sonam gs and pleural spaces are otherwise clear. No pneumothorax is seen. The skeletal structures are osteo penic. The bony thorax is grossly intact. IMPRESSION: No active disease in the chest. ACT 112: Negative or not required by law. Electronically signed by: Leighton Morelos M.D. 04/24/2022 11:24 PM
[2022-04-24 23:31] LABS: Partial Thromboplastin Ratio 0.9; Partial Thromboplastin Time 23.9 Seconds (21.0-31.0); Prothrombin Time 10.3 Seconds (9.0-12.0)
[2022-04-24 23:34] LABS: D Dimer 1670 ug/L FEU (0-500)
[2022-04-24 23:42] LABS: BUN Creatinine Ratio 26.2 (10-20); Calcium 10.2 mg/dl (8.5-10.1); Creatinine Clr Calc Pharmacy 47.5 ml/min; Est GFR (African American) 45.2 ml/min; Potassium 3.5 mmol/L (3.5-5.1)
[2022-04-24] MEDS ORDERED: SODIUM CHLORIDE 0.9% 1000ML 1,000 ML IV ONE (23:44)
--- NOTE | 2022-04-24 23:55 | Emergency Department Note ---
History of Present Illness General Chief Complaint: Chest Pain Stated Complaint: CHEST PAIN,SOB,HIGH BLOOD PRESSURE,SHOULDER PAIN Time Seen by Provider: 04/24/22 22:35 History of Present Illness Provider Complaint: chest pain Onset (ago): day(s) 1 Duration: now resolved Pain Location: substernal Pain Radiation: neck and jaw/teeth Severity: moderate Maximum Pain Intensity: 6 Current Pain Intensity: 6 Quality: + aching and + dull Relieved By: + nothing Exacerbated By: + exertion Context: no recent illness, no recent surgery, no recent travel, no trauma/injury or no history of DVT/PE Associated symptoms: + dyspnea, + palpitations and + cough; no diaphoresis or no syncope Home Medications Medication Instructions Recorded Confirmed Type calcium carbonate 600 mg-vitamin 1 tab PO BID 06/21/18 03/26/22 History D3 5 mcg (200 unit) capsule (Calcium 600 + D(3)) duloxetine 60 mg capsule,delayed 60 mg PO QAM 06/24/20 03/26/22 History release (Cymbalta) B-complex with vitamin C 1 cap PO QAM 07/09/21 03/26/22 History ferrous sulfate 325 mg (65 mg 325 mg PO QAM 07/09/21 03/26/22 History iron) tablet (Feosol) docusate sodium 100 mg capsule 100 mg PO PM 07/10/21 03/26/22 History (Dulcolax Stool Softener (docusate)) ascorbate calcium (vitamin C) 500 1 g PO QPM 10/10/21 03/26/22 History mg tablet magnesium 250 mg tablet 500 mg PO QAM 10/10/21 03/26/22 History levothyroxine 100 mcg capsule 100 mcg PO QDL 12/18/21 03/26/22 History losartan 100 mg tablet 100 mg PO QAM 12/18/21 03/26/22 History pantoprazole 40 mg tablet,delayed 40 mg PO HS 12/18/21 03/26/22 History release gabapentin 100 mg capsule 100 mg PO TID #270 caps 12/31/21 03/26/22 Rx prednisone 5 mg tablet 15 mg PO QAM 02/01/22 03/26/22 History ropinirole 1 mg tablet 1 mg PO QDL 02/01/22 03/26/22 History ropinirole 1 mg tablet 2 mg PO HS 02/01/22 03/26/22 History metoprolol succinate 25 mg 25 mg PO DAILY 02/20/22 03/26/22 History tablet,extended release 24 hr aspirin 81 mg tablet,delayed 81 mg PO QPM 03/11/22 03/26/22 History release hydroxychloroquine 200 mg tablet 200 mg PO AMHS 03/11/22 03/26/22 History lactobacillus comb no.10 20 20,000 mmu cells PO DAILY 03/11/22 03/26/22 History billion cell capsule (Probiotic) trazodone 50 mg tablet 50 mg PO HS PRN Sleep 03/11/22 03/26/22 History oxycodone 5 mg tablet 5 mg PO Q6H PRN pain, severe #30 03/13/22 03/26/22 Rx tabs tramadol 50 mg tablet 50 mg PO Q6H PRN pain, moderate 03/13/22 03/26/22 Rx #30 tabs triamterene 37.5 1 cap PO DAILY #30 caps 03/15/22 03/26/22 Rx mg-hydrochlorothiazide 25 mg capsule Allergies Allergy/AdvReac Type Severity Reaction Status Date / Time rifampin Allergy Intermediate cardiac Verified 03/26/22 00:13 arrhymia + renal failure Past Med/Surg History Medical History Essential tremor Bilateral hands - mild/intermittent GERD (gastroesophageal reflux disease) Well controlled and stable Giant cell arteritis Temporal biopsy was negative, being treated for this as patient reports she had all symptoms. follows with Dr Easley ([facility]) On Prednisone x 1.5 months - currently down to Prednisone 15mg BID - following with rheum for taper to f/u Rheumatology 03/04/22 History of COVID-26 July 2020. no current problems History of recent steroid use Pt currently on tapering Prednisone dose for PMR and giant cell arteritis- Prednisone started around beginning of November 2021 and is continue on tapering dose - recently changed from Prednisone 15 mg BID Hx MRSA infection ~2016 in the finger, dx at [facility]. Osteomyelitis- did have surgery to remove Hx of kidney disease WNL CURRENLTY/WAS STAGE 3 Hx of sepsis R/t kidney infection August 2021 and treated at [facility]. Hypercholesterolemia Hypertension variable per pt, recently self adjusted metoprolol and triamterene-HCTZ Hypothyroidism Interdigital neuroma of foot HX FOOT INJECTIONS *DONE UNDER ANESTHESIA Intractable muscle spasm Patient reports she will have random muscle spasms, unable to have any definitive diagnosis and followed with various physicians, better with the prednisone currently. Myopathy Had negative muscle biopsy Neuropathy Pacemaker INSERTED 2019/recurrent syncope secondary to symptomatic bradycardia. Paroxysmal SVT (supraventricular tachycardia) recently treated in Emergency Room at [facility] for syncope s/p TKA 01/2022. patient was diagnosed with a UTI with treatment of abx and "runs of SVT" Polymyalgia rheumatica On Prednisone - x 1.5 months Restless legs syndrome Rheumatoid arthritis QUESTIONABLE- SERUM NEGATIVE Right bundle branch block (RBBB) FOLLOWS WITH DR. FERMIN Sleep apnea Noncompliant with CPAP Spinal stenosis of lumbar region Spondylolysis Vascular disease Renal artery stenosis, celiac/SMA stenosis- no intervention felt necessary per 02/05/21 vascular note Per patient- seen at [facility] afterwards and felt report was read incorrect and patient has no significant stenosis Surgical History Encounter for biopsy (07/09/21) Left Thigh Muscle Biopsy - Solo Parada DO, FACS 07/09/2021 History of bilateral tubal ligation History of breast biopsy aspiration of cyst from left breast benign History of cholecystectomy History of colonoscopy History of dilatation and curettage History of esophagogastroduodenoscopy (EGD) History of hand surgery right finger left hand--I&D History of temporal artery biopsy History of tooth extraction History of total abdominal hysterectomy and bilateral salpingo-oophorectomy S/P cardiac pacemaker procedure placed 2018 at [facility]. Status post right knee replacement 01/16/22: LMA#5 + PNB. 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 Stripper Required: No Beliefs That Will Affect Care: None marital status: Current Living Situation: Spouse Current Living Situation Comment: lives with current occupational status: employed and retired How many Children do You have: 2 Feels Safe at Home: Yes Childhood Exposure to Second-Hand Smoke: Yes Diet Comment: low dairy caffeine: Yes during the past year weight has: increased > 10 lbs Dental Care, Regularly: Yes Physical Activity Frequency: Daily Seatbelt Use: always Assistive Devices: Cane, Crutches and Walker Review of Systems A total of 10 systems reviewed and were otherwise negative Physical Exam Vital Signs Vital Signs - 24 hr 04/24/22 22:24 04/24/22 23:10 04/24/22 23:10 Temperature 37 C Temperature Source Temporal Artery Scan Pulse Rate 98 H 79 Pulse Rate from SpO2 Sensor Pulse Rhythm Regular Pulse Strength Normal Respiratory Rate 24 18 Respiratory Effort / Characteristics Non-Labored Spontaneous Respiratory Depth Normal Respiratory Pattern Regular Blood Pressure 192/66 H Blood Pressure Mean 108 Blood Pressure Position Sitting Pulse Oximetry 98 99 99 Oxygen Delivery Method Room Air Room Air Room Air Sepsis Recent Fever Within 48 Hours No Sepsis New/Unexplained Change in Mental Status N/A Sepsis Action Taken by Nursing No Action Required 04/24/22 22:35 04/24/22 22:46 04/24/22 23:01 Temperature Temperature Source Pulse Rate 87 87 96 H Pulse Rate from SpO2 Sensor 86 89 Pulse Rhythm Pulse Strength Respiratory Rate 12 25 H 13 Respiratory Effort / Characteristics Respiratory Depth Respiratory Pattern Blood Pressure 174/83 H 189/82 H 175/108 H Blood Pressure Mean 113 117 130 Blood Pressure Position Pulse Oximetry 100 95 Oxygen Delivery Method Room Air Room Air Sepsis Recent Fever Within 48 Hours Sepsis New/Unexplained Change in Mental Status Sepsis Action Taken by Nursing 04/24/22 23:35 04/24/22 23:45 Temperature Temperature Source Pulse Rate 140 H 84 Pulse Rate from SpO2 Sensor 81 Pulse Rhythm Pulse Strength Respiratory Rate 19 17 Respiratory Effort / Characteristics Respiratory Depth Respiratory Pattern Blood Pressure 174/107 H 179/78 H Blood Pressure Mean 129 111 Blood Pressure Position Pulse Oximetry 99 Oxygen Delivery Method Room Air Sepsis Recent Fever Within 48 Hours Sepsis New/Unexplained Change in Mental Status Sepsis Action Taken by Nursing Physical Exam GENERAL: She is oriented to person, place, and time. She appears well-developed and well-nourished. She does not appear distressed. HENT: Exam performed. -Head: Normocephalic and atraumatic. -Right Ear: External ear normal. No mastoid tenderness. -Left Ear: External ear normal. No mastoid tenderness. -Mouth/Throat: The oropharynx is clear and moist. No trismus in the jaw. No dental abscesses or uvula swelling. No oropharyngeal exudate or tonsillar abscesses. EYES: Conjunctivae and EOM are normal. Pupils are equal, round, and reactive to light. Right eye exhibits no discharge. Left eye exhibits no discharge. No scleral icterus. NECK: Normal range of motion. Neck supple. No JVD present. No spinous process tenderness present. No carotid bruit present. No rigidity. No tracheal deviation and normal range of motion present. No Brudzinski's sign and no Kernig's sign noted. CV: Normal rate, regular rhythm, normal heart sounds and intact distal pulses. There is no peripheral edema. Palpable radial pulses bue. PULM/CHEST: Effort normal and breath sounds normal. No respiratory distress. No stridor. She has no wheezes. She has no rales. -Chest Wall: She exhibits no tenderness. ABD: The abdomen is soft. Bowel sounds are normal. She has no distension. No mass is present. There is no tenderness. There is no rebound, no guarding, no Glover's sign and no tenderness at McBurney's point. Rovsig negative MUSC/SKEL: Normal range of motion. There is no peripheral edema, tenderness or deformity. LYMPH: No cervical adenopathy. NEURO: She is alert and oriented to person, place, and time. She has normal strength. No cranial nerve deficit or sensory deficit. Coordination and gait normal. GCS eye subscore is 4. GCS verbal subscore is 5. GCS motor subscore is 6. Cerebellar tests wnl. SKIN: Skin is warm and dry. She is not diaphoretic. PSYCH: She has a normal mood and affect. Behavior is normal. Judgment and thought content normal. Course Course 2234: The patient was evaluated in room C11. A complete history and physical exam was performed Cardiac monitoring: An order was placed for continuous cardiac monitoring. The monitor shows a rate of 80 with sinus rhythm 0044: Vital signs stable. Labs show white blood cell count of 12.2. D-dimer elevated 1670. Creatinine 1.41. Troponin of 18. CTA of the chest negative for PE. Nursing reported that when the patient got up to use the restroom her heart rate went up to the 140s. Patient reported that when she got up to use restroom she felt pressure on her chest like a book was sitting on it. She is currently reporting no chest pain and the chest pressure resolved once she sat down and rested. Given the patient's symptoms when she got up and exerted herself and her mildly elevated troponin [facility] out [facility]. Discussed case with Dr. Ardon who will evaluate the patient for admission. Administered Medications Discontinued Medications Aspirin (Aspirin Chew 324 Mg) 324 mg PO NOW STA Stop: 04/24/22 22:37 Last Admin: 04/24/22 22:47 Dose: 324 mg Documented By: Sodium Chloride (Nss 1000ml) 1,000 mls @ 999 mls/hr IV .Q1H1M ONE Stop: 04/25/22 00:44 Last Admin: 04/24/22 23:52 Dose: 999 mls/hr Documented By: Ioversol (Optiray 320 500ml) 110 ml IV ONCE ONE Stop: 04/25/22 00:22 Last Admin: 04/25/22 00:21 Dose: 110 ml Documented By: [facility] Medical Decision Making Laboratory Data Result diagrams: 04/24/22 22:56 04/24/22 22:56 Labs: Lab Results 04/24/22 04/24/22 04/24/22 Range/Units 22:56 22:56 22:56 WBC 12.21 H (4.8-10.8) K/ul RBC 4.44 (3.93-5.22) M/uL Hgb 12.4 (12.0-16.0) g/dl Hct 39.8 (34.1-44.9) % MCV 89.6 (80.0-100.0) fL MCH 27.9 (25.0-34.0) pg MCHC 31.2 L (32.0-36.0) g/dL RDW Std Deviation 44.7 (36.4-46.3) fL RDW Coeff of Rowdy 13.6 (11.5-14.5) % Plt Count 274 (130-400) K/uL MPV 11.4 (9.4-12.3) fL Immature Gran % (Auto) 1.2 % Neut % (Auto) 66.7 % Lymph % (Auto) 19.7 % [place] % (Auto) 10.2 % Eos % (Auto) 1.5 % Baso % (Auto) 0.7 % Neut # (Auto) 8.14 H (1.4-6.5) K/uL Lymph # (Auto) 2.41 (1.2-3.4) K/uL [place] # (Auto) 1.25 H (0.24-0.82) K/uL Eos # (Auto) 0.18 (0-0.50) K/uL Baso # (Auto) 0.08 (0-0.2) K/uL Immature Gran # (Auto) 0.15 H (0.00-0.02) K/uL PT 10.3 (9.0-12.0) Seconds INR 1.0 (0.9-1.1) APTT 23.9 (21.0-31.0) Seconds PTT Ratio 0.9 D-Dimer 1670 H* (0-500) ug/L FEU Sodium 140 (136-145) mmol/L Potassium 3.5 (3.5-5.1) mmol/L Chloride 102 (98-107) mmol/L Carbon Dioxide 29 (21-32) mmol/L Anion Gap 9 (3-11) BUN 37 H (6-23) mg/dl Creatinine 1.41 H (0.6-1.2) mg/dl Est Cr Clr Drug Dosing 47.5 ml/min Est GFR ( Amer) 45.2 ml/min Est GFR (Non-Af Amer) 39.0 ml/min BUN/Creatinine Ratio 26.2 H (10-20) Glucose 90 (70-99(Fasting)) mg/dl Calcium 10.2 H (8.5-10.1) mg/dl Magnesium 2.0 (1.7-2.4) mg/dl Troponin I High Sens 18.0 H (0-14) pg/ml Lipase 43 (11-82) U/L Imaging Data Chest x-ray: Radiologist's impression: Chest X-Ray 04/24/22 22:38 SINGLE VIEW CHEST CLINICAL HISTORY: Atypical chest pain. FINDINGS: An AP, portable, upright chest radiograph is compared to study dated 03/26/2022 and correlated with chest CT dated 02/01/2022. A 2-lead cardiac pacemaker is unchanged in position and partially obscures the left lower chest. The cardiomediastinal silhouette is top normal for projection noted atherosclerotic calcification of the thoracic aorta. The pulmonary vasculature is noncontrast. Chronic interstitial thickening is similar to previous. There is mild bibasilar scarring/atelectasis. The lungs and pleural spaces are otherwise clear. No pneumothorax is seen. The skeletal structures are osteopenic. The bony thorax is grossly intact. IMPRESSION: No active disease in the chest. ACT 112: Negative or not required by law. Electronically signed by: Leighton Morelos M.D. 04/24/2022 11:[address] scan - chest: Radiologist's impression: CT ANGIOGRAM OF THE CHEST CLINICAL HISTORY: Chest heaviness. Tachycardia. Hypertension. COMPARISON STUDY: Chest x-ray dated 04/24/2022. Chest CT dated 02/01/2022. TECHNIQUE: Following the IV administration of 110 cc of Optiray 320, CT angiogram of the chest was performed from the upper abdomen to the thoracic inlet utilizing the pulmonary embolus protocol. Images are reviewed in the axial, sagittal, and coronal planes. 3-D MIPS images are created and assessed. IV contrast was administered without complication. A dose lowering technique was utilized adhering to the principles of ALARA. CT DOSE: 868.98 mGy.cm FINDINGS: Thyroid: Imaged portions of the thyroid gland are normal in size and attenuation. Thoracic aorta: There is atherosclerotic calcification of the thoracic aorta, which is normal in caliber and demonstrates standard 3-vessel arch anatomy. No dissection is seen. Pulmonary vasculature: The pulmonary trunk is normal in caliber. There are no filling defects identified in main, lobar, or segmental pulmonary branches to suggest pulmonary embolus. Heart: A pacemaker is noted in the left chest wall. The heart is normal in size and without pericardial effusion. Lungs and pleural spaces: Evaluation of the lung parenchyma is mildly degraded by motion artifact. There is no airspace consolidation or pleural effusion. Foci of atelectasis are seen throughout both lungs. The trachea and central airways appear clear. A 3 mm left lower lobe pulmonary nodule on image #94 is unchanged. Mediastinum: There is no mediastinal lymphadenopathy. Josefa: Clear. Axillae: There is no axillary lymphadenopathy. Upper abdomen: Cholecystectomy clips are noted. Partially visualized upper abdominal viscera is otherwise within normal limits. Skeletal structures: The skeletal structures are osteopenic. Degenerative change in hyperkyphosis is noted in the thoracic spine. No lytic or blastic bony lesions are seen. IMPRESSION: 1. There is no evidence of pulmonary embolus in the main, lobar, or segmental pulmonary arteries. 2. The lungs are clear. 3. Additional findings as above. ACT 112: Negative or not required by law. Electronically signed by: Leighton Morelos M.D. 04/25/2022 12:28 AM Dictated:04/25/2222 Transcribed: 04/25/2222 ECG Data Additional Comments: Sinus tachycardia with rate of 104. [place] 164 QRS 132 QTC 523. Right bundle branch block present. There were occasional ventricular paced complexes with occasional PVCs. MDM Narrative Vital signs stable. Labs show white blood cell count of 12.2. D-dimer elevated 1670. Creatinine 1.41. Troponin of 18. CTA of the chest negative for PE. Nursing reported that when the patient got up to use the restroom her heart rate went up to the 140s. Patient reported that when she got up to use restroom she felt pressure on her chest like a book was sitting on it. She is currently reporting no chest pain and the chest pressure resolved once she sat down and rested. Given the patient's symptoms when she got up and exerted herself and her mildly elevated troponin the patient will be admitted to the [facility] hospitalist team for chest pain rule out ACS. Discussed case with Dr. Ardon who will evaluate the patient for admission. Impression & Plan Chest pain Discharge Plan Visit Data Chief Complaint: Chest Pain Stated Complaint: CHEST PAIN,SOB,HIGH BLOOD PRESSURE,SHOULDER PAIN ED Provider: Lucho Shepherd Discharge Problem: Chest pain Patient Disposition: Being Evaluated by Hospitalist Forms Stand Alone Forms: My [facility] Prescriptions Prescriptions: No Action gabapentin 100 mg capsule 100 mg PO TID Qty: 270 3RF duloxetine [Cymbalta] 60 mg capsule,delayed release(DR/EC) 60 mg PO QAM Label Comments: TAKES FOR PAIN Calcium 600 + D(3) 600 mg calcium- 200 unit Capsule 1 tab PO BID ferrous sulfate [Feosol] 325 mg (65 mg iron) tablet 325 mg PO QAM Label Comments: TAKING DAILY ONLY QAM B-complex with vitamin C Capsule 1 cap PO QAM ascorbate calcium (vitamin C) 500 mg tablet 1 g PO QPM docusate sodium [Dulcolax Stool Softener (dss)] 100 mg Capsule 100 mg PO PM magnesium 250 mg tablet 500 mg PO QAM pantoprazole 40 mg tablet,delayed release (DR/EC) 40 mg PO HS losartan 100 mg tablet 100 mg PO QAM levothyroxine 100 mcg capsule 100 mcg PO QDL Label Comments: TAKES AT 3PM metoprolol succinate 25 mg tablet extended release 24 hr 25 mg PO DAILY prednisone 5 mg tablet 15 mg PO QAM ropinirole 1 mg tablet 2 mg PO HS ropinirole 1 mg tablet 1 mg PO QDL Rx Instructions: takes at 1200 trazodone 50 mg tablet 50 mg PO HS PRN (Reason: Sleep) aspirin 81 mg tablet,delayed release (DR/EC) 81 mg PO QPM hydroxychloroquine 200 mg tablet 200 mg PO AMHS Probiotic 20 billion cell Capsule 20,000 mmu cells PO DAILY tramadol 50 mg tablet 50 mg PO Q6H PRN (Reason: pain, moderate) Qty: 30 0RF oxycodone 5 mg tablet 5 mg PO Q6H PRN (Reason: pain, severe) Qty: 30 0RF triamterene-hydrochlorothiazid 37.5-25 mg capsule 1 cap PO DAILY Qty: 30 0RF Referrals Referrals: Michael King MD [Primary Care Provider] -
[2022-04-25] MEDS ORDERED: OPTIRAY 320 500ml IV ONE (00:21)
--- NOTE | 2022-04-25 00:30 | CT Scan Report ---
CT ANGIOGRAM OF THE CHEST CLINICAL HISTORY: Chest heaviness. Tachycardia. Hypertension. COMPARISON STUDY: Chest x-ray dated 04/24/2022. Chest CT dated 02/01/2022. TECHNIQUE: Following the IV administration of 110 cc of Optiray 320, CT angiogram of the chest was pe rformed from the upper abdomen to the thoracic inlet utilizing the pulmonary embolus protocol. Images are reviewed in the axial, sagittal, and coronal planes. 3-D MIPS images are created and assessed. I V contrast was administered without complication. A dose lowering technique was utilized adhering to the principles of ALARA. CT DOSE: 868.98 mGy.cm FINDINGS: Thyroid: Imaged portions of the thyroid gland are normal in size and attenuation. Thoracic aorta: There is atherosclerotic calcification of the thoracic aorta, which is normal in ravi lorna and demonstrates standard 3-vessel arch anatomy. No dissection is seen. Pulmonary vasculature: The pulmonary trunk is normal in caliber. There are no filling defects identif ied in main, lobar, or segmental pulmonary branches to suggest pulmonary embolus. Heart: A pacemaker is noted in the left chest wall. The heart is normal in size and without pericardi al effusion. Lungs and pleural spaces: Evaluation of the lung parenchyma is mildly degraded by motion artifact. Th ere is no airspace consolidation or pleural effusion. Foci of atelectasis are seen throughout both micheal ngs. The trachea and central airways appear clear. A 3 mm left lower lobe pulmonary nodule on image # 94 is unchanged. Mediastinum: There is no mediastinal lymphadenopathy. Josefa: Clear. Axillae: There is no axillary lymphadenopathy. Upper abdomen: Cholecystectomy clips are noted. Partially visualized upper abdominal viscera is other nicole within normal limits. Skeletal structures: The skeletal structures are osteopenic. Degenerative change in hyperkyphosis is noted in the thoracic spine. No lytic or blastic bony lesions are seen. IMPRESSION: 1. There is no evidence of pulmonary embolus in the main, lobar, or segmental pulmonary arteries. 2. The lungs are clear. 3. Additional findings as above. ACT 112: Negative or not required by law. Electronically signed by: Leighton Morelos M.D. 04/25/2022 12:28 AM
[2022-04-25] MEDS ORDERED: ACETAMINOPHEN 500 MG TAB PO STA (00:49)
--- NOTE | 2022-04-25 02:23 | History & Physical Report ---
Date of Service April 25, 2022 Assessment & Plan (1) Chest pain: Plan: Patient is a 66 yo female with extensive PMHx including HTN, RA, GCA, PMR, syncope, erosive OA, CKD stage III, GERD, symptomatic bradycardia s/p pacemaker placement, restless leg syndrome, paroxysmal SVT, hypothyroidism, and hyperlipidemia who presented to the [facility] ER on 04/24/22 due to chest pain. Chest pain/Syncope - Patient with persistent episodes of CP associated with hypertension, hypotension, tachycardia, bradycardia, pre-syncopal sensation, and syncope - Mild elevation of HS-trop in ER; will continue to trend to peak - EKG prn chest pain - Check TTE - Fall precautions given frequent syncope/falls - D-dimer elevated; Chest CTA negative for PE - Patient denies hx of DVT/PE -- no recent travel, prolonged period of immobilization, estrogen use, tobacco use - Admit to [facility] w/ tele for cardiac monitoring to r/o ACS - I suspect that this is more likely related to dysautonomia (patient's symptoms include CP, hypertension/hypotension, tachycardia/bradycardia, urinary incontinence, fecal incontinence, inability to sweat, bilateral lower extremity swelling, intermittent blurred vision/double vision, and postprandial abdominal pain). I advised patient that it will be important to follow w/ [facility] (Dr. Champagne) for further evaluation of potential autonomic dysfunction as scheduled in 2 months - Will also check labs to include Lyme, aldosterone, cortisol, phos, and vitamin B12 - UA ordered Hypertension - Current hypertension but patient notes periods of hypotension - Hold home Dyazide - Continue home metoprolol and losartan Hyperlipidemia - Patient is not on statin therapy at this time but per chart review was previously on statin (?) - Recheck fasting lipid profile in AM s/p Pacemaker placement 12/2021 - Pacemaker interrogated in ER prior to admission - No significant findings Giant Cell Arteritis / Erosive Arthritis / RA / Polymyalgia Rheumatica - Follows with rheumatology, Dr. Easley, in [place] - History of positive BRIGHT - Continue home prednisone 15mg po qAM (plan to decrease to 12.5mg po qAM on Wednesday, 04/27 per patient) - Continue home Plaquenil, Cymbalta, and Gabapentin GERD - Continue home protonix 40mg po qhs Iron deficiency anemia - Continue home ferrous sulfate - Patient w/o anemia on labs Restless leg syndrome - Continue home ropinirole Hypothyroidism - Continue home synthroid - Last TSH 03/13/22 wnl (1.02) CKDIII - Cr on admission 1.41; last Cr 1 month ago 1.21 - Repeat CMP in AM FENGI: NPO on admission pending further cardiac workup DVT ppx: Lovenox Dispo: admit to medsurg/tele Code status: Full code -- I personally discussed code status with patient on admission (2) Giant cell arteritis: (3) Syncope: (4) Rheumatoid arthritis: (5) Erosive osteoarthritis: (6) GERD (gastroesophageal reflux disease): (7) HTN (hypertension): (8) Status post placement of other cardiac pacemaker: (9) Restless leg syndrome: (10) Elevated troponin I level: (11) Hypothyroidism: History of Present Illness Primary Care Provider: Michael King MD Patient is a 66 yo female with extensive PMHx including HTN, RA, GCA, PMR, syncope, erosive OA, CKD stage III, GERD, symptomatic bradycardia s/p pacemaker placement, restless leg syndrome, paroxysmal SVT, hypothyroidism, and hyperlipidemia who presented to the [facility] ER on 04/24/22 due to chest pain. Patient states that she woke up this morning with dizziness and generalized chest pain radiating to the left neck and b/l shoulders. At onset, the pain was difficult to describe. 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 Upon further questioning, patient notes that she has had similar episodes of chest pain daily for "a long time." Patient also complains of palpitations described as "fluttering" sensations. She further explains each episode of pain as "bounding left neck pain followed by fluttering followed by feeling of inability to breathe; will then cough and have some chest pain." Today, patient was noted to have episodes of both hypertension and hypotension as well as tachycardia and bradycardia. The fluctuation of hypertension/hypotension and tachycar mirian/bradycardia is what ultimately brought her to the [facility] for evaluation. Patient does share a phone heraclio which notes monitored values for hypertension up to 201/88 and tachycardia to 170s; she also reports hypotension to 70/30. Additionally, patient complains of pre-syncopal sensations and syncope. Patient states that she will feel pre-syncopal about 9-10x/day and will actually have a syncopal episode with LOC about 1-2x/day. She notes that she has been seen by [facility] cardiology for about 6 years and more recently had second opinion with [facility] cardiology last month; she is scheduled for evaluation/workup for dysautonomia at [facility] on June 12 2022 (in about 2 months). In addition to cardiac concerns noted above, patient does report urinary incontinence, inability to sweat, bilateral lower extremity swelling (unchanged), intermittent blurred vision/double vision, postprandial abdominal pain, intermittent nausea, and headaches. ER workup: CXR without acute findings WBC mildly elevated at 12.21 with left shift, no anemia; d-dimer elevated at 1670; Cr 1.4; HS-troponin mildly elevated at 18; lipase wnl COVID negative Chest CTA w/o evidence of PE She received 324mg ASA, 1L NSS, and 1000mg Tylenol Patient is currently w/o chest pain. She is NSR on satellite project site monitor with rate at 85 bpm. Allergies Allergy/AdvReac Type Severity Reaction Status Date / Time rifampin Allergy Intermediate cardiac Verified 04/25/22 01:10 arrhymia + renal failure Home Medications Medication Instructions Recorded Confirmed Type calcium carbonate 600 mg-vitamin 1 tab PO BID 06/21/18 04/25/22 History D3 5 mcg (200 unit) capsule (Calcium 600 + D(3)) duloxetine 60 mg capsule,delayed 60 mg PO QAM 06/24/20 04/25/22 History release (Cymbalta) B-complex with vitamin C 1 cap PO QAM 07/09/21 04/25/22 History ferrous sulfate 325 mg (65 mg 325 mg PO QAM 07/09/21 04/25/22 History iron) tablet (Feosol) docusate sodium 100 mg capsule 100 mg PO PM 07/10/21 04/25/22 History (Dulcolax Stool Softener (docusate)) ascorbate calcium (vitamin C) 500 1 g PO QPM 10/10/21 04/25/22 History mg tablet magnesium 250 mg tablet 500 mg PO QAM 10/10/21 04/25/22 History levothyroxine 100 mcg capsule 100 mcg PO QDL 12/18/21 04/25/22 History losartan 100 mg tablet 100 mg PO QAM 12/18/21 04/25/22 History pantoprazole 40 mg tablet,delayed 40 mg PO HS 12/18/21 04/25/22 History release gabapentin 100 mg capsule 100 mg PO TID #270 caps 12/31/21 04/25/22 Rx prednisone 5 mg tablet 15 mg PO QAM 02/01/22 04/25/22 History ropinirole 1 mg tablet 1 mg PO QDL 02/01/22 04/25/22 History ropinirole 1 mg tablet 2 mg PO HS 02/01/22 04/25/22 History metoprolol succinate 25 mg 25 mg PO QAM 02/20/22 04/25/22 History tablet,extended release 24 hr aspirin 81 mg tablet,delayed 81 mg PO QPM 03/11/22 04/25/22 History release hydroxychloroquine 200 mg tablet 200 mg PO AMHS 03/11/22 04/25/22 History lactobacillus comb no.10 20 20,000 mmu cells PO DAILY 03/11/22 04/25/22 History billion cell capsule (Probiotic) tramadol 50 mg tablet 50 mg PO Q6H PRN pain, moderate 03/13/22 04/25/22 Rx #30 tabs triamterene 37.5 1 cap PO QAM 04/25/22 04/25/22 History mg-hydrochlorothiazide 25 mg capsule Past Med/Surg History Medical History Essential tremor Bilateral hands - mild/intermittent GERD (gastroesophageal reflux disease) Well controlled and stable Giant cell arteritis Temporal biopsy was negative, being treated for this as patient reports she had all symptoms. follows with Dr Easley ([facility]) On Prednisone x 1.5 months - currently down to Prednisone 15mg BID - following with rheum for taper to f/u Rheumatology 03/04/22 History of COVID-26 July 2020. no current problems History of recent steroid use Pt currently on tapering Prednisone dose for PMR and giant cell arteritis- Prednisone started around beginning of November 2021 and is continue on tapering dose - recently changed from Prednisone 15 mg BID Hx MRSA infection ~2017 in the finger, dx at [facility]. Osteomyelitis- did have surgery to remove Hx of kidney disease WNL CURRENLTY/WAS STAGE 3 Hx of sepsis R/t kidney infection August 2021 and treated at [facility]. Hypercholesterolemia Hypertension variable per pt, recently self adjusted metoprolol and triamterene-HCTZ Hypothyroidism Interdigital neuroma of foot HX FOOT INJECTIONS *DONE UNDER ANESTHESIA Intractable muscle spasm Patient reports she will have random muscle spasms, unable to have any definitive diagnosis and followed with various physicians, better with the prednisone currently. Myopathy Had negative muscle biopsy Neuropathy Pacemaker INSERTED 2018/recurrent syncope secondary to symptomatic bradycardia. Paroxysmal SVT (supraventricular tachycardia) recently treated in Emergency Room at [facility] for syncope s/p TKA 01/2022. patient was diagnosed with a UTI with treatment of abx and "runs of SVT" Polymyalgia rheumatica On Prednisone - x 1.5 months Restless legs syndrome Rheumatoid arthritis QUESTIONABLE- SERUM NEGATIVE Right bundle branch block (RBBB) FOLLOWS WITH DR. FERMIN Sleep apnea Noncompliant with CPAP Spinal stenosis of lumbar region Spondylolysis Vascular disease Renal artery stenosis, celiac/SMA stenosis- no intervention felt necessary per 02/05/21 vascular note Per patient- seen at [facility] afterwards and felt report was read incorrect and patient has no significant stenosis Surgical History Encounter for biopsy (07/09/21) Left Thigh Muscle Biopsy - Solo Parada DO, FACS 07/09/2021 History of bilateral tubal ligation History of breast biopsy aspiration of cyst from left breast benign History of cholecystectomy History of colonoscopy History of dilatation and curettage History of esophagogastroduodenoscopy (EGD) History of hand surgery right finger left hand--I&D History of temporal artery biopsy History of tooth extraction History of total abdominal hysterectomy and bilateral salpingo-oophorectomy S/P cardiac pacemaker procedure placed 2018 at [facility]. Status post right knee replacement 01/16/22: LMA#5 + PNB. Family History Grandmother (Maternal) Family history of diabetes mellitus Father Myocardial infarction Lung cancer Hypertension Mother Acute myocardial infarction Hypertension Other No family history of adverse response to anesthesia Denies family history of Ovarian cancer Breast cancer Colorectal cancer Social History Smoking Status: Never smoker Second Hand Exposure: Yes (parents smoked); Hx Alcohol Use: No Hx Substance Use: No Preferred Language: Frisian Communication Ability: Effective Visual Impairment: No Limitations Skilled Nursing Case Manager Required: No Beliefs That Will Affect Care: None marital status: Current Living Situation: Spouse Current Living Situation Comment: Lives w/ spouse at home current occupational status: employed and retired How many Children do You have: 2 Feels Safe at Home: Yes Childhood Exposure to Second-Hand Smoke: Yes Diet Comment: low dairy caffeine: Yes during the past year weight has: increased > 10 lbs Dental Care, Regularly: Yes Physical Activity Frequency: Daily Seatbelt Use: always Assistive Devices: Cane Review of Systems Review of Systems: See HPI Physical Exam Physical Exam: GENERAL: No acute distress. Well developed and well nourished. Vital signs reviewed as above. EYES: PERRLA. EOMI. Anicteric sclerae. Patient reports some loss of vision with tracking of left eye towards the left; on repeat, there is no loss of vision. Normal peripheral field testing. HENT: Dry mucous membranes. No pharyngeal erythema or exudates. RESPIRATORY: Clear to auscultation bilaterally. No wheezing, rales, or rhonchi. CARDIOVASCULAR: Regular rate and rhythm. No murmurs. No JVD. ABDOMEN: Soft, non-tender and non-distended. Normal bowel sounds. EXTREMITIES: 1-2+ BLE non-pitting edema which is reportedly unchanged from baseline. No tenderness to palpation. SKIN: Warm, dry. NEUROLOGIC: A/O x3. Normal speech. No focal neurological deficits. PSYCHIATRIC: Cooperative. Appropriate mood and affect. Results & Data Results & Data ([facility]) Vital Signs (Past 12 Hours) Vital Signs Temp Pulse Resp BP Pulse Ox O2 Del Method 04/25/22 01:30 85 29 H 167/63 H 100 Room Air 04/25/22 01:00 79 22 155/69 H 100 Room Air 04/25/22 00:45 74 20 148/68 H 99 Room Air 04/24/22 23:45 84 17 179/78 H 99 Room Air 04/24/22 23:35 140 H 19 174/107 H 04/24/22 23:01 96 H 13 175/108 H 12/16/22 22:46 87 25 H 189/82 H 95 Room Air 04/24/22 22:35 87 12 174/83 H 100 Room Air 04/24/22 23:10 79 18 99 Room Air 04/24/22 23:10 99 Room Air 04/24/22 22:24 37 C 98 H 24 192/66 H 98 Room Air Laboratory Results 04/25/22 04/24/22 04/24/22 Range/Units 00:47 22:56 22:56 WBC (4.8-10.8) K/ul RBC (3.93-5.22) M/uL Hgb (12.0-16.0) g/dl Hct (34.1-44.9) % MCV (80.0-100.0) fL MCH (25.0-34.0) pg MCHC (32.0-36.0) g/dL RDW Std Deviation (36.4-46.3) fL RDW Coeff of Rowdy (11.5-14.5) % Plt Count (130-400) K/uL MPV (9.4-12.3) fL Immature Gran % (Auto) % Neut % (Auto) % Lymph % (Auto) % [place] % (Auto) % Eos % (Auto) % Baso % (Auto) % Neut # (Auto) (1.4-6.5) K/uL Lymph # (Auto) (1.2-3.4) K/uL [place] # (Auto) (0.24-0.82) K/uL Eos # (Auto) (0-0.50) K/uL Baso # (Auto) (0-0.2) K/uL Immature Gran # (Auto) (0.00-0.02) K/uL PT 10.3 (9.0-12.0) Seconds INR 1.0 (0.9-1.1) APTT 23.9 (21.0-31.0) Seconds PTT Ratio 0.9 D-Dimer 1670 H* (0-500) ug/L FEU Sodium 140 (136-145) mmol/L Potassium 3.5 (3.5-5.1) mmol/L Chloride 102 (98-107) mmol/L Carbon Dioxide 29 (21-32) mmol/L Anion Gap 9 (3-11) BUN 37 H (6-23) mg/dl Creatinine 1.41 H (0.6-1.2) mg/dl Est Cr Clr Drug Dosing 47.5 ml/min Est GFR ( Amer) 45.2 ml/min Est GFR (Non-Af Amer) 39.0 ml/min BUN/Creatinine Ratio 26.2 H (10-20) Glucose 90 (70-99(Fasting)) mg/dl Calcium 10.2 H (8.5-10.1) mg/dl Magnesium 2.0 (1.7-2.4) mg/dl Troponin I High Sens 18.0 H (0-14) pg/ml Lipase 43 (11-82) U/L SARS-CoV-2, RNA, NAAT NEGATIVE (NEGATIVE) 04/24/22 Range/Units 22:56 WBC 12.21 H (4.8-10.8) K/ul RBC 4.44 (3.93-5.22) M/uL Hgb 12.4 (12.0-16.0) g/dl Hct 39.8 (34.1-44.9) % MCV 89.6 (80.0-100.0) fL MCH 27.9 (25.0-34.0) pg MCHC 31.2 L (32.0-36.0) g/dL RDW Std Deviation 44.7 (36.4-46.3) fL RDW Coeff of Rowdy 13.6 (11.5-14.5) % Plt Count 274 (130-400) K/uL MPV 11.4 (9.4-12.3) fL Immature Gran % (Auto) 1.2 % Neut % (Auto) 66.7 % Lymph % (Auto) 19.7 % [place] % (Auto) 10.2 % Eos % (Auto) 1.5 % Baso % (Auto) 0.7 % Neut # (Auto) 8.14 H (1.4-6.5) K/uL Lymph # (Auto) 2.41 (1.2-3.4) K/uL [place] # (Auto) 1.25 H (0.24-0.82) K/uL Eos # (Auto) 0.18 (0-0.50) K/uL Baso # (Auto) 0.08 (0-0.2) K/uL Immature Gran # (Auto) 0.15 H (0.00-0.02) K/uL PT (9.0-12.0) Seconds INR (0.9-1.1) APTT (21.0-31.0) Seconds PTT Ratio D-Dimer (0-500) ug/L FEU Sodium (136-145) mmol/L Potassium (3.5-5.1) mmol/L Chloride (98-107) mmol/L Carbon Dioxide (21-32) mmol/L Anion Gap (3-11) BUN (6-23) mg/dl Creatinine (0.6-1.2) mg/dl Est Cr Clr Drug Dosing ml/min Est GFR ( Amer) ml/min Est GFR (Non-Af Amer) ml/min BUN/Creatinine Ratio (10-20) Glucose (70-99(Fasting)) mg/dl Calcium (8.5-10.1) mg/dl Magnesium (1.7-2.4) mg/dl Troponin I High Sens (0-14) pg/ml Lipase (11-82) U/L SARS-CoV-2, RNA, NAAT (NEGATIVE) Diagnostic Findings [place], [place] [phone] CT Scan Report Patient:PATTI NELSON Admit Date:04/24/22 MR#:[id number] Address1:[address] [place] [address] Acct ID:[id number] Address2: Date:1955 [facility] Zip:[place] [address] Age:66 Location:ED Sex:F Room/Bed: Att Phy: Diagnosis:CHEST PAIN,SOB,HIGH BLOOD PRESSURE,SHOULDER PAIN Gail Phy:Michael King MD Service Date:04/24/22 [facility] Phy: Interpreting Phy:[facility]y: Ordering Phy:Lucho Shepherd MD cc: ~ CT ANGIOGRAM OF THE CHEST CLINICAL HISTORY: Chest heaviness. Tachycardia. Hypertension. COMPARISON STUDY: Chest x-ray dated 04/24/2022. Chest CT dated 02/01/2022. TECHNIQUE: Following the IV administration of 110 cc of Optiray 320, CT angiogram of the chest was performed from the upper abdomen to the thoracic in let utilizing the pulmonary embolus protocol. Images are reviewed in the axial, sagittal, and coronal planes. 3-D MIPS images are created and assessed. IV contrast was administered without complication. A dose lowering technique was utilized adhering to the principles of ALARA. CT DOSE: 868.98 mGy.cm FINDINGS: Thyroid: Imaged portions of the thyroid gland are normal in size and attenuation. Thoracic aorta: There is atherosclerotic calcification of the thoracic aorta, which is normal in caliber and demonstrates standard 3-vessel arch anatomy. No dissection is seen. Pulmonary vasculature: The pulmonary trunk is normal in caliber. There are no filling defects identified in main, lobar, or segmental pulmonary branches to suggest pulmonary embolus. Heart: A pacemaker is noted in the left chest wall. The heart is normal in size and without pericardial effusion. Lungs and pleural spaces: Evaluation of the lung parenchyma is mildly degraded by motion artifact. There is no airspace consolidation or pleural effusion. Foci of atelectasis are seen throughout both lungs. The trachea and central airways appear clear. A 3 mm left lower lobe pulmonary nodule on image #94 is unchanged. Mediastinum: There is no mediastinal lymphadenopathy. Josefa: Clear. Axillae: There is no axillary lymphadenopathy. Upper abdomen: Cholecystectomy clips are noted. Partially visualized upper abdominal viscera is otherwise within normal limits. Skeletal structures: The skeletal structures are osteopenic. Degenerative change in hyperkyphosis is noted in the thoracic spine. No lytic or blastic bony le sions are seen. IMPRESSION: 1. There is no evidence of pulmonary embolus in the main, lobar, or segmental pulmonary arteries. 2. The lungs are clear. 3. Additional findings as above. ACT 112: Negative or not required by law. Electronically signed by: Leighton Morelos M.D. 04/25/2022 12:28 AM Dictated:04/25/22 0023 Transcribed: 04/25/22 0023 [facility], [place] [phone] XRay Report Patient:PATTI NELSON Admit Date:04/24/22 MR#:[id number] Address1:[facility] [place] Acct ID:[id number] Address2: Date:1955 [facility] Zip:[place] [address] Age:66 Location:ED Sex:F Room/Bed: Att Phy: Diagnosis:CHEST PAIN,SOB,HIGH BLOOD PRESSURE,SHOULDER PAIN Gail Phy:Michael King MD Service Date:04/24/22 [facility] Phy: Interpreting Phy:Leighton Morelos MDAdmit Phy: Ordering Phy:Lucho Shepherd MD cc: ~ SINGLE VIEW CHEST CLINICAL HISTORY: Atypical chest pain. FINDINGS: An AP, portable, upright chest radiograph is compared to study dated 03/26/2022 and correlated with chest CT dated 02/01/2022. A 2-lead cardiac pacemaker is unchanged in position and partially obscures the left lower chest. The cardiomediastinal silhouette is top normal for projection noted atherosclerotic calcification of the thoracic aorta. The pulmonary vasculature is noncontrast. Chronic interstitial thickening is similar to previous. There is mild bibasilar scarring/atelectasis. The lungs and pleural spaces are otherwise clear. No pneumothorax is seen. The skeletal structures are osteopenic. The bony thorax is grossly intact. IMPRESSION: No active disease in the chest. ACT 112: Negative or not required by law. Electronically signed by: Leighton Morelos M.D. 04/24/2022 11:24 PM Dictated:[id number] Transcribed: 04/24/22 6519 Code Status & VTE Plan VTE Prophylaxis Plan VTE Prophylaxis will be ordered: Yes Supervising Physician Co-Signing Physician Notes Patient seen and examined, chart reviewed, case discussed with Dr. Salinas and I agree with the assessment and plan as above. Patient with multiple complaints, variable blood pressures and heart rates. She has been evaluated by Cardiology and is referred to [facility] for Autonomic Dysfunction workup. On exam she is resting comfortably, NAD Skin - no rash HEENT - NC/AT, PERRL, MMM, Neck supple Heart - +S1/S2, regular Lungs -CTA Abd - soft, NT/ND Ext - warm, well perfused Labs and images reviewed Assessment/Plan -trend troponin -check 2D echo -BP management -Remainder as above Resident Activity Tracking Resident Involvement: Resident Care Provided Care Provided: Adult Hospital Medicine (1) Chest pain Chest pain type: unspecified Qualified Code(s): R07.9 - Chest pain, unspecified
[2022-04-25] MEDS ORDERED: ACETAMINOPHEN 325 MG TAB PO PRN (03:22)
[2022-04-25] MEDS ORDERED: POLYETHYLENE (MIRALAX) 17 GM PACK PO PRN (03:22)
[2022-04-25] MEDS ORDERED: ONDANSETRON INJ 2 MG/ML 2 ML VIAL IV PRN (03:22)
[2022-04-25 04:43] LABS: Basophils # (auto) 0.08 K/uL (0-0.2); Basophils % (auto) 0.7 %; Eosinophils # (auto) 0.33 K/uL (0-0.50); Eosinophils % (auto) 2.9 %; Hematocrit (blood only) 34.5 % (34.1-44.9); Immature Granulocytes # (auto) 0.19 K/uL (0.00-0.02); Immature Granulocytes % (auto) 1.7 %; Lymphocytes # (auto) 2.47 K/uL (1.2-3.4); Lymphocytes % (auto) 21.6 %; Mean Corpuscular Hgb Conc 31.9 g/dL (32.0-36.0); Mean Corpuscular Volume 87.8 fL (80.0-100.0); Mean Platelet Volume 11.6 fL (9.4-12.3); Monocytes # (auto) 1.21 K/uL (0.24-0.82); Monocytes % (auto) 10.6 %; Neutrophils # (auto) 7.15 K/uL (1.4-6.5); Neutrophils % (auto) 62.5 %; Platelet Count 240 K/uL (130-400); RDW Coefficient of Variation 13.6 % (11.5-14.5); RDW Standard Deviation 44.3 fL (36.4-46.3); Red Blood Count 3.93 M/uL (3.93-5.22); White Blood Count 11.43 K/ul (4.8-10.8)
[2022-04-25 05:11] LABS: Albumin Globulin Ratio 1.3 (0.9-2); Albumin Level 3.6 gm/dl (3.4-5.0); BUN Creatinine Ratio 29.2 (10-20); Bilirubin,Total 0.4 mg/dl (0.2-1.0); Calcium 9.6 mg/dl (8.5-10.1); Chol HDL Ratio 2.8 (0-5); Creatinine Clr Calc Pharmacy 51.7 ml/min; Est GFR (African American) 49.9 ml/min; Globulin 2.8 gm/dl (2.5-4.0); Magnesium 1.9 mg/dl (1.7-2.4); Phosphorus 4.6 mg/dl (2.5-4.9); Potassium 3.5 mmol/L (3.5-5.1); Total Protein 6.4 gm/dl (6.0-8.3)
[2022-04-25 05:35] LABS: Lyme Ab IgG w/WB Rflx Negative (Negative); Lyme Ab IgM w/WB Rflx Negative (Negative)
[2022-04-25 06:55] LABS: Appearance Urine Clear (Clear); Bacteria Urine Automated 4+ (Negative); Bilirubin Urine Negative (Negative); Blood Urine Negative (Negative); Color Urine Yellow; Glucose Urine UA Negative (Negative); Ketones Urine Negative (Negative); Leukocyte Esterase Urine 2+ (Negative); Nitrite Urine Positive (Negative); Protein Urine Negative (Negative); RBC Urine Automated 0-4 /hpf (0-4); Specific Gravity Urine 1.033 (1.000-1.030); Urobilinogen Urine Negative (Negative); pH Urine 5.5 (4.5-7.5)
[2022-04-25] MEDS ORDERED: MAGNESIUM OXIDE 400 MG TAB PO SCH (09:00)
[2022-04-25] MEDS ORDERED: LOSARTAN POTASSIUM 50 MG TAB PO SCH (09:00)
[2022-04-25] MEDS ORDERED: ADVANCED PROBIOTIC 1250 MG CAPSULE PO SCH (09:00)
[2022-04-25] MEDS ORDERED: FERROUS SULFATE 325 MG TAB PO SCH (09:00)
[2022-04-25] MEDS ORDERED: GABAPENTIN 100 MG CAP PO SCH (09:00)
[2022-04-25] MEDS ORDERED: ENOXAPARIN INJ 40 MG/0.4 ML SYR SQ SCH (09:00)
[2022-04-25] MEDS ORDERED: predniSONE 5 MG TAB PO SCH (09:00)
[2022-04-25] MEDS ORDERED: METOPROLOL SUCC 25MG EXT REL TAB PO SCH (09:00)
[2022-04-25] MEDS ORDERED: DULoxetine HCL 60 MG CAP PO SCH (09:00)
[2022-04-25] MEDS ORDERED: HYDROXYCHLOROQUINE SULFATE 200 MG TAB PO SCH (09:00)
[2022-04-25] MEDS ORDERED: LEVOTHYROXINE SODIUM 100 MCG TABLET PO SCH (11:30)
[2022-04-25] MEDS ORDERED: rOPINIRole HCL 1 MG TABLET PO SCH (11:30)
--- NOTE | 2022-04-25 14:17 | Discharge Summary ---
Date of Service April 25, 2022 Admission HPI Per Admitting Provider Patient is a 66 yo female with extensive PMHx including HTN, RA, GCA, PMR, syncope, erosive OA, CKD stage III, GERD, symptomatic bradycardia s/p pacemaker placement, restless leg syndrome, paroxysmal SVT, hypothyroidism, and hyperlipidemia who presented to the [facility] ER on 04/24/22 due to chest pain. Patient states that she woke up this morning with dizziness and generalized chest pain radiating to the left neck and b/l shoulders. At onset, the pain was difficult to describe. 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 Upon further questioning, patient notes that she has had similar episodes of chest pain daily for "a long time." Patient also complains of palpitations described as "fluttering" sensations. She further explains each episode of pain as "bounding left neck pain followed by fluttering followed by feeling of inability to breathe; will then cough and have some chest pain." Today, patient was noted to have episodes of both hypertension and hypotension as well as tachycardia and bradycardia. The fluctuation of hypertension/hypotension and tachycardia/bradycardia is what ultimately brought her to the hospital tonight for evaluation. Patient does share a phone heraclio which notes monitored values for hypertension up to 201/88 and tachycardia to 170s; she also reports hypotension to 70/30. Additionally, patient complains of pre-syncopal sensations and syncope. Patient states that she will feel pre-syncopal about 9-10x/day and will actually have a syncopal episode with LOC about 1-2x/day. She notes that she has been seen by [facility] [place] for about 6 years and more recently had second opinion with [facility] cardiology last month; she is scheduled for evaluation/workup for dysautonomia at [facility] on June 12 2022 (in about 2 months). In addition to cardiac concerns noted above, patient does report urinary incontinence, inability to sweat, bilateral lower extremity swelling (unchanged), intermittent blurred vision/double vision, postprandial abdominal pain, intermittent nausea, and headaches. ER workup: CXR without acute findings WBC mildly elevated at 12.21 with left shift, no anemia; d-dimer elevated at 1670; Cr 1.4; HS-troponin mildly elevated at 18; lipase wnl COVID negative Chest CTA w/o evidence of PE She received 324mg ASA, 1L NSS, and 1000mg Tylenol Patient is currently w/o chest pain. 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 Principal Diagnosis Chest pain likely due to RA Discharge Exam Constitutional WD/WN, vitals as above Eyes + anicteric sclerae Neck trachea midline, no thyromegaly Respiratory normal respiratory effort, lungs clear to auscultation Cardiovascular Rate/Rhythm: regular rate and regular rhythm Heart Sounds: no murmur Vessels: no JVD Extremities: + edema (1+ pitting edema b/l) Gastrointestinal (Abdomen) normal bowel sounds, soft, nontender, no hepatosplenomegaly Musculoskeletal Head/Neck/Chest: normocephalic and head atraumatic Skin no rashes, warm and dry Neurologic moves all extremities Coordination: + abnormal [id number]-wr-[id number] test and + abnormal Romberg test Psychiatric A+Ox3, euthymic affect Discharge Data Allergies Allergy/AdvReac Type Severity Reaction Status Date / Time rifampin Allergy Intermediate cardiac Verified 04/25/22 01:10 arrhymia + renal failure Consultations 04/25/22 00:42 ED Decision to Admit Stat Ordered Studies 04/24/22 23:44 CT angio chest PE protocol Stat Hospital Course (1) Chest pain: Patient is a 66 yo female with extensive PMHx including HTN, RA, GCA, PMR, syncope, erosive OA, CKD stage III, GERD, symptomatic bradycardia s/p pacemaker placement, restless leg syndrome, paroxysmal SVT, hypothyroidism, and hyperlipidemia who presented to the [facility] ER on 04/24/22 due to chest pain. Chest pain/Syncope Patient came into the hospital for evaluation of chest pain. While she was here she had EKG, echocardiogram, and chest x-ray that were all within normal limits. She had serial high-sensitivity troponins that were initially mildly elevated elevated at 18 and peaked at 22 and began downtrending. D-dimer was elevated with a negative CT scan for PE. Patient has multiple rheumatologic disorders which would likely elevate this level. Overall it was determined that the patient was not having chest pain secondary to acute coronary syndrome and felt that it was safe for her to be discharged. No syncope/presyncope while in hospital as well as no abnormality other than PVCs noted on telemetry. This litany of symptoms have been an ongoing issue for a long time (years) and she is being evaluated by cardiology and has an appointment with the [facility] in June for further work-up. I suspect that this is more likely related to dysautonomia (patient's symptoms include CP, hypertension/hypotension, tachycardia/bradycardia, urinary incontinence, fecal incontinence, inability to sweat, bilateral lower extremity swelling, intermittent blurred vision/double vision, and postprandial abdominal pain). I advised patient that it will be important to follow w/ [facility] (Dr. Champagne) for further evaluation of potential autonomic dysfunction as scheduled in 2 months Hypertension - Current hypertension but patient notes periods of hypotension - Continue home regimen Hyperlipidemia - Patient is not on statin therapy at this time but per chart review was previously on statin (?) s/p Pacemaker placement 12/2021 - Pacemaker interrogated in ER prior to admission - No significant findings Giant Cell Arteritis / Erosive Arthritis / RA / Polymyalgia Rheumatica - Follows with rheumatology, Dr. Easley, in [place] - History of positive BRIGHT - Continue home prednisone 15mg po qAM (plan to decrease to 12.5mg po qAM on Wednesday, 04/27 per patient) - Continue home Plaquenil, Cymbalta, and Gabapentin GERD - Continue home protonix 40mg po qhs Iron deficiency anemia - Continue home ferrous sulfate - Patient w/o anemia on labs Restless leg syndrome - Continue home ropinirole Hypothyroidism - Continue home synthroid - Last TSH 03/13/22 wnl (1.02) CKDIII - Cr on admission 1.41; last Cr 1 month ago 1.21 FENGI: DC on regular diet Dispo: Discharge home Code status: Full code (2) Giant cell arteritis: (3) Syncope: (4) Rheumatoid arthritis: (5) Erosive osteoarthritis: (6) GERD (gastroesophageal reflux disease): (7) HTN (hypertension): (8) Status post placement of other cardiac pacemaker: (9) Restless leg syndrome: (10) Elevated troponin I level: (11) Hypothyroidism: Total Time Total Time Spent Total Time Spent (In Minutes): 30 Discharge Plan Discharge Items Patient Disposition: Home - Self-Care Reason For Visit: CHEST PAIN/ SYNCOPE/ HTN Discharge Diagnosis: Chest pain Activity: Per Instructions section Non-emergency contact: Primary Care Provider Call non-emergency contact if: you have any medication questions and your symptoms worsen Follow-up/Referrals: Michael King MD [Primary Care Provider] - 05/05/22 2:00 pm Diet: Regular Addtl Attending Provider Instructions: You are seen in the hospital for evaluation of chest pain. While you were here you had an EKG and chest x-ray done both of which were normal although there were some premature ventricular contractions on her EKG which are likely why you are experiencing heart fluttering with rushes of blood as you were stating today. An echocardiogram was also performed which was totally normal. Your troponins (see an enzyme indicative of heart damage) see was mildly elevated, however, this is typical in patients who come in with elevated blood pressures and fast heart rates. Your troponin level was not high enough to indicate something like a heart attack. We did trend it until it peaked which was at 21.8. On repeat it began downtrending back to normal levels. Because of this time we can say that your chest pain is not due to acute coronary syndrome (see heart attack) see we do feel it is safe for you to be discharged home. In terms of the possible dysautonomia that you have been experiencing, there is not likely any benefit for you staying in the hospital for this issue and will need the work-up that you are to get at [facility] in the outpatient setting. We are glad that you already have an appointment to be seen by a provider that may be able to help you with this issue. At this time we do not need to make any changes to your medications and feel it is safe for you to return home. It has been a pleasure to be part of your care and we wish you the best of both your health and your recovery. Pending Studies at Discharge: Yes Studies:: Aldosterone level Stand-Alone Forms: My [employer], Smoking Cessation Medications and DC Order Prescriptions: Continued gabapentin 100 mg capsule 100 mg PO TID Qty: 270 3RF duloxetine [Cymbalta] 60 mg capsule,delayed release(DR/EC) 60 mg PO QAM Label Comments: TAKES FOR PAIN Calcium 600 + D(3) 600 mg calcium- 200 unit Capsule 1 tab PO BID ferrous sulfate [Feosol] 325 mg (65 mg iron) tablet 325 mg PO QAM Label Comments: TAKING DAILY ONLY QAM B-complex with vitamin C Capsule 1 cap PO QAM ascorbate calcium (vitamin C) 500 mg tablet 1 g PO QPM docusate sodium [Dulcolax Stool Softener (dss)] 100 mg Capsule 100 mg PO PM magnesium 250 mg tablet 500 mg PO QAM pantoprazole 40 mg tablet,delayed release (DR/EC) 40 mg PO HS losartan 100 mg tablet 100 mg PO QAM levothyroxine 100 mcg capsule 100 mcg PO QDL Label Comments: TAKES AT 3PM metoprolol succinate 25 mg tablet extended release 24 hr 25 mg PO QAM prednisone 5 mg tablet 15 mg PO QAM ropinirole 1 mg tablet 2 mg PO HS ropinirole 1 mg tablet 1 mg PO QDL Rx Instructions: takes at 1200 aspirin 81 mg tablet,delayed release (DR/EC) 81 mg PO QPM hydroxychloroquine 200 mg tablet 200 mg PO AMHS Probiotic 20 billion cell Capsule 20,000 mmu cells PO DAILY tramadol 50 mg tablet 50 mg PO Q6H PRN (Reason: pain, moderate) Qty: 30 0RF triamterene-hydrochlorothiazid 37.5-25 mg capsule 1 cap PO QAM Discharge Orders: Discharge Order (Routine); Ordered 04/25/22 Ordered By: Hari Perez/Other Patient Handouts: ED Chest Pain, Noncardiac Admission Data Admit Date/Time: 04/25/22 02:17 Attending Provider: Kayla Palma Admit Provider: Lenora Salinas Primary Care Provider: Michael King Other Providers: Libertad Ardon Other Interventions: Discharge Summary Assessment (RN) Last Done: 04/25/22 13:44 Supervising Physician Co-Signing Physician Notes Resident Physician Supervision Note: I independently interviewed and examined the patient and verified the lynn history and physical, reviewed labs and image studies and agree with resident findings and care plan.
[2022-04-25] MEDS ORDERED: PANTOprazole 40 MG TAB PO SCH (21:00)
[2022-04-25] MEDS ORDERED: DOCUSATE SODIUM 100 MG CAP PO SCH (21:00)
[2022-04-25] MEDS ORDERED: rOPINIRole HCL 2 MG TABLET PO SCH (21:00)
[2022-04-25] MEDS ORDERED: ASPIRIN 81 MG ECTAB PO SCH (21:00)
--- NOTE | 2022-04-25 23:01 | Billing Data ---
Date of Service April 25, 2022 Coding Level of Care Code 40742 Initial Inpt Care Lvl 2
--- NOTE | 2022-04-26 21:40 | Electrocardiogram Report ---
Test Reason : Blood Pressure : / mmHG Vent. Rate : 104 BPM Atrial Rate : 104 BPM P-R Int : 164 ms QRS Dur : 132 ms QT Int : 398 ms P-R-T Axes : 063 079 -02 degrees QTc Int : 523 ms Sinus tachycardia with occasional Premature ventricular complexes and Fusion complexes Non-specific intra-ventricular conduction block T wave abnormality, consider inferior ischemia T wave abnormality, consider anterior ischemia Abnormal ECG When compared with ECG of 26-MAR-2022 00:37, Premature ventricular complexes are now Present Confirmed by Lalo Harris ([id number]) on 04/26/2022 9:40:15 PM Referred By: REFERRED SELF Confirmed By:Lalo Harris
== END 2022-04-25 14:26 | disposition home or self-care (01) ==
LOC: ED 22:22 → 2N 22:22 → SUATTDRO 04-25 02:17 → 2N 04-25 03:29
DX: R07.9 Chest pain, unspecified; E78.5 Hyperlipidemia, unspecified; Z77.22 Contact with and (suspected) exposure to environmental tobacco smoke (acute) (chronic); M15.4 Erosive (osteo)arthritis; G25.81 Restless legs syndrome; Z20.822 Contact with and (suspected) exposure to COVID-19; R77.8 Other specified abnormalities of plasma proteins; M31.5 Giant cell arteritis with polymyalgia rheumatica; I12.9 Hypertensive chronic kidney disease with stage 1 through stage 4 chronic kidney disease, or unspecified chronic kidney disease; N18.30 Chronic kidney disease, stage 3 unspecified; Z95.0 Presence of cardiac pacemaker; R00.1 Bradycardia, unspecified; D50.9 Iron deficiency anemia, unspecified; E03.9 Hypothyroidism, unspecified; Z79.890 Hormone replacement therapy; Z79.899 Other long term (current) drug therapy; I47.1 Supraventricular tachycardia; M06.9 Rheumatoid arthritis, unspecified; K21.9 Gastro-esophageal reflux disease without esophagitis; R55 Syncope and collapse; Z79.82 Long term (current) use of aspirin; Z88.1 Allergy status to other antibiotic agents; Z79.85 Long-term (current) use of injectable non-insulin antidiabetic drugs

== ENCOUNTER 2022-06-17 20:55 | Observation (INO) ==
[2022-06-17 21:53] LABS: Alanine Aminotransferase 28 U/L (7-52); Albumin Globulin Ratio 1.4 (0.9-2); Albumin Level 4.3 gm/dl (3.4-5.0); Alkaline Phosphatase 70 U/L (34-104); Anion Gap 7 (3-11); Aspartate Aminotransferase 25 U/L (13-39); BUN Creatinine Ratio 23.4 (10-20); Bilirubin,Total 0.4 mg/dl (0.2-1.0); Blood Urea Nitrogen 30 mg/dl (6-23); Carbon Dioxide 32 mmol/L (21-32); Chloride 109 mmol/L (98-107); Est GFR (African American) 50.8 ml/min; Est GFR (Non-African American) 43.8 ml/min; Globulin 3.1 gm/dl (2.5-4.0); Glucose 88 mg/dl (70-99(Fasting)); Sodium 148 mmol/L (136-145); Total Protein 7.4 gm/dl (6.0-8.3)
[2022-06-17 22:03] LABS: Partial Thromboplastin Ratio 0.9; Partial Thromboplastin Time 24.5 Seconds (21.0-31.0); Prothrombin Time 10.4 Seconds (9.0-12.0)
[2022-06-17 22:04] LABS: Basophils # (auto) 0.05 K/uL (0-0.2); Basophils % (auto) 0.7 %; Eosinophils # (auto) 0.37 K/uL (0-0.50); Eosinophils % (auto) 5.3 %; Hematocrit (blood only) 40.3 % (37.0-47.0); Hemoglobin 12.7 g/dl (12.0-16.0); Immature Granulocytes # (auto) 0.06 K/uL (0.01-0.20); Immature Granulocytes % (auto) 0.9 %; Lymphocytes % (auto) 24.5 %; Mean Corpuscular Hemoglobin 27.8 pg (25.0-34.0); Mean Corpuscular Hgb Conc 31.5 g/dL (32.0-36.0); Mean Corpuscular Volume 88.2 fL (80.0-100.0); Mean Platelet Volume 11.9 fL (9.4-12.4); Monocytes # (auto) 0.79 K/uL (0.11-0.59); Monocytes % (auto) 11.4 %; Neutrophils # (auto) 3.98 K/uL (1.40-6.50); Neutrophils % (auto) 57.2 %; Platelet Count 250 K/uL (130-400); RDW Coefficient of Variation 14.6 % (11.5-14.5); RDW Standard Deviation 46.9 fL (36.4-46.3); Red Blood Count 4.57 M/uL (4.20-5.40); White Blood Count 6.95 K/ul (4.8-10.8)
[2022-06-17 22:12] LABS: Troponin I High Sensitivity 138.3 pg/ml (0-14)
[2022-06-17 22:14] LABS: Lipase 34 U/L (11-82)
[2022-06-17] MEDS ORDERED: OPTIRAY 320 500ml IV ONE (22:57)
[2022-06-17] MEDS ORDERED: ACETAMINOPHEN 1,000 MG/100 ML VIAL IV STA (23:03)
[2022-06-17] MEDS ORDERED: SODIUM CHLORIDE 0.9% 1000ML 500 ML IV ONE (23:25)
[2022-06-17 23:37] LABS: Appearance Urine Clear (Clear); Bacteria Urine Automated Negative (Negative); Bilirubin Urine Negative (Negative); Blood Urine Negative (Negative); Color Urine Dark Yellow; Epithelial Cell Urine Auto >30 /lpf (0-5); Glucose Urine UA Negative (Negative); Ketones Urine Trace (Negative); Leukocyte Esterase Urine 1+ (Negative); Nitrite Urine Negative (Negative); Protein Urine Negative (Negative); RBC Urine Automated 0-4 /hpf (0-4); Specific Gravity Urine 1.032 (1.000-1.030); Urobilinogen Urine Negative (Negative); WBC Urine Automated >30 /hpf (0-5)
--- NOTE | 2022-06-17 23:50 | History & Physical Report ---
Date of Service June 17, 2022 Assessment & Plan (1) Chest pain: Plan: Patient is a 66 yo female with extensive PMHx of HTN, RA, GCA, PMR, syncope, erosive OA, CKD stage III, GERD, symptomatic bradycardia s/p pacemaker placement, restless leg syndrome, paroxysmal SVT, hypothyroidism, and hyperlipidemia admitted for chest pain rule out. Chest pain: -Patient with persistent episodes of CP associated with hypertension, hypotension, tachycardia, bradycardia, pre-syncopal sensation, and syncope -Mild elevation of HS-trop in ER to 138.3; repeat 115.3. -EKG this admission tachycardic to 128, no significant changes from EKG on prevoius admission. -CTA chest negative for PE or acute process. -One episode of chest pain unprovoked while watching TV. Suspect may have had an episode of SVT w/ demand ischemia to heart causing symptoms. -Echo from 04/25 showing EF 55-60%, no wall motion abnormalities noted. -Will recheck TTE. -EKG PRN for chest pain. -Fall precautions in place due to history of syncope and falls (falls from neuropathy) -Admit to med/tele. Hypertension -Continue home metoprolol 25mg qAM, triamterene-hydrochlorothiazide qAM. Hyperlipidemia -Patient not on statin medication, lipid panel from 04/25/22 WNL. Giant Cell Arteritis / Erosive Arthritis / RA / Polymyalgia Rheumatica -Follows with Dr. Blevins. -History of positive BRIGHT -Continue home prednisone 10mg po qAM. -Continue home Plaquenil, Cymbalta, and Gabapentin s/p Pacemaker placement 12/2021 -Noted GERD -Continue home protonix 40mg po qhs Iron deficiency anemia -Continue home ferrous sulfate -Patient w/o anemia on labs Restless leg syndrome -Continue home ropinirole Hypothyroidism -Continue home synthroid -Last TSH 03/13/22 wnl (1.02) CKDIII -Cr on admission 1.28; last Cr 1 month ago 1.13 -Continue to follow w/ AM BMP. DVT ppx: Lovenox FENGI: Heart healthy. Code status: Conditional - CPR and shock if necessary but no intubation. Dispo: Med/tele (2) HTN (hypertension): (3) Hyperlipidemia: (4) Hypothyroidism: (5) Status post placement of other cardiac pacemaker: (6) Giant cell arteritis: (7) Erosive osteoarthritis: (8) Rheumatoid arthritis: (9) GERD (gastroesophageal reflux disease): (10) Restless leg syndrome: (11) CKD (chronic kidney disease), stage III: History of Present Illness Chief Complaint: chest pain Primary Care Provider: Michael King MD Lisa is a 66 year old female w/ PmHx HTN, RA, GCA, PMR, syncope, erosive OA, CKD stage III, GERD, symptomatic bradycardia s/p pacemaker placement, restless leg syndrome, paroxysmal SVT, hypothyroidism, and hyperlipidemia coming in for chest pain. Patient states that she has a complex past medical history and follows with multiple specialists for her cardiac history. She states that she recently saw [facility] on 06/17 and they had recommended the source of issues may be from the need for better blood pressure control. She said they did not make any adjustments to her medications however she will be following up with Dr. Hatch and they discussed possibly going up on the metoprolol from 25mg qAM to 50mg BID. She states that this afternoon into the evening she started to get heavy chest pressure that was like a tight band across her chest and went into the back that was constant and prevented her from moving up and out of her chair. The onset of it occurred while she was sitting in her chair watching a movie. She also had associated nausea with this however no vomiting. She denies any fevers, chills, diarrhea, constipation, diaphoresis. Patient states she always has palpitations and always has lower extremity edema. In the ED WBC 6.95, Hgb 12.6, platelet 250, electrolyte WNL, BUN 30, Creat 1.28, glucose 88, liver enzymes WNL, Troponin 138.3 initially followed by 115.3 on repeat, lipase 34, U/A w/ LE, WBC, ketones. CXR w/ cardiomegaly and no acute pulmonary process. CTA chest w/o PE or acute process on statrad. EKG w/o any changes from previous EKG from April except rate of 128. Allergies Allergy/AdvReac Type Severity Reaction Status Date / Time rifampin Allergy Intermediate cardiac Verified 06/17/22 23:08 arrhymia + renal failure Home Medications Medication Instructions Recorded Confirmed Type calcium carbonate 600 mg-vitamin 1 tab PO BID 06/21/18 06/17/22 History D3 5 mcg (200 unit) capsule (Calcium 600 + D(3)) duloxetine 60 mg capsule,delayed 60 mg PO QAM 06/24/20 06/17/22 History release (Cymbalta) B-complex with vitamin C 1 cap PO QAM 07/09/21 06/17/22 History ferrous sulfate 325 mg (65 mg 325 mg PO QAM 07/09/21 06/17/22 History iron) tablet (Feosol) docusate sodium 100 mg capsule 100 mg PO PM 07/10/21 06/17/22 History (Dulcolax Stool Softener (docusate)) ascorbate calcium (vitamin C) 500 1 g PO QPM 10/10/21 06/17/22 History mg tablet magnesium 250 mg tablet 500 mg PO QAM 10/10/21 06/17/22 History levothyroxine 100 mcg capsule 100 mcg PO QDL 12/18/21 06/17/22 History losartan 100 mg tablet 100 mg PO QAM 12/18/21 06/17/22 History pantoprazole 40 mg tablet,delayed 40 mg PO HS 12/18/21 06/17/22 History release ropinirole 1 mg tablet 1 mg PO QDL 02/01/22 06/17/22 History ropinirole 1 mg tablet 2 mg PO HS 02/01/22 06/17/22 History metoprolol succinate 25 mg 25 mg PO QAM 02/20/22 06/17/22 History tablet,extended release 24 hr aspirin 81 mg tablet,delayed 81 mg PO QPM 03/11/22 06/17/22 History release hydroxychloroquine 200 mg tablet 200 mg PO AMHS 03/11/22 06/17/22 History lactobacillus comb no.10 20 20,000 mmu cells PO DAILY 03/11/22 06/17/22 History billion cell capsule (Probiotic) triamterene 37.5 1 cap PO QAM 04/25/22 06/17/22 History mg-hydrochlorothiazide 25 mg capsule Oxygen Home #1 ea 04/30/22 06/10/22 Rx prednisone 5 mg tablet 10 mg PO QAM 06/05/22 06/17/22 History gabapentin 100 mg capsule 100 mg PO TID #270 caps 06/15/22 06/17/22 Rx Past Med/Surg History Medical History Essential tremor Bilateral hands - mild/intermittent GERD (gastroesophageal reflux disease) Well controlled and stable Giant cell arteritis Temporal biopsy was negative, being treated for this as patient reports she had all symptoms. follows with Dr Easley ([facility]) On Prednisone x 1.5 months - currently down to Prednisone 15mg BID - following with rheum for taper to f/u Rheumatology 03/04/22 History of COVID-26 July 2020. no current problems History of recent steroid use Pt currently on tapering Prednisone dose for PMR and giant cell arteritis- Prednisone started around beginning of November 2021 and is continue on tapering dose - recently changed from Prednisone 15 mg BID Hx MRSA infection ~2016 in the finger, dx at [facility]. Osteomyelitis- did have surgery to remove Hx of kidney disease WNL MARGAUXLTY/WAS STAGE 3 Hx of sepsis R/t kidney infection August 2021 and treated at [facility]. Hypertension variable per pt, recently self adjusted metoprolol and triamterene-HCTZ Hypothyroidism Interdigital neuroma of foot HX FOOT INJECTIONS *DONE UNDER ANESTHESIA Intractable muscle spasm Patient reports she will have random muscle spasms, unable to have any definitive diagnosis and followed with various physicians, better with the prednisone currently. Myopathy Had negative muscle biopsy Neuropathy Pacemaker INSERTED 2018/recurrent syncope secondary to symptomatic bradycardia. Paroxysmal SVT (supraventricular tachycardia) recently treated in Emergency Room at [facility] for syncope s/p TKA 01/2022. patient was diagnosed with a UTI with treatment of abx and "runs of SVT" Polymyalgia rheumatica On Prednisone - x 1.5 months Restless legs syndrome Rheumatoid arthritis QUESTIONABLE- SERUM NEGATIVE Right bundle branch block (RBBB) FOLLOWS WITH DR. FERMIN Sleep apnea Noncompliant with CPAP Spinal stenosis of lumbar region Spondylolysis Vascular disease Renal artery stenosis, celiac/SMA stenosis- no intervention felt necessary per 02/05/21 vascular note Per patient- seen at [facility] afterwards and felt report was read incorrect and patient has no significant stenosis Surgical History Encounter for biopsy (07/09/21) Left Thigh Muscle Biopsy - Solo Parada, , FACS 07/09/2021 History of bilateral tubal ligation History of breast biopsy aspiration of cyst from left breast benign History of cholecystectomy History of colonoscopy History of dilatation and curettage History of esophagogastroduodenoscopy (EGD) History of hand surgery right finger left hand--I&D History of temporal artery biopsy History of tooth extraction History of total abdominal hysterectomy and bilateral salpingo-oophorectomy S/P cardiac pacemaker procedure placed 2019 at [facility]. Status post right knee replacement (~01/2022) Status post right knee replacement 01/16/22: LMA#5 + PNB. Family History Grandmother (Maternal) Family history of diabetes mellitus Father Myocardial infarction Lung cancer Hypertension Mother Acute myocardial infarction Hypertension Other No family history of adverse response to anesthesia Denies family history of Ovarian cancer Breast cancer Colorectal cancer Social History Smoking Status: Never smoker Second Hand Exposure: Yes (parents smoked); Hx Alcohol Use: No Hx Substance Use: No Preferred Language: Yi Communication Ability: Effective Visual Impairment: No Limitations Child Center Assistant Required: No Beliefs That Will Affect Care: None marital status: Current Living Situation: Spouse Current Living Situation Comment: Lives w/ spouse at home current occupational status: employed and retired How many Children do You have: 2 Feels Safe at Home: Yes Childhood Exposure to Second-Hand Smoke: Yes Diet Comment: low dairy caffeine: Yes during the past year weight has: increased > 10 lbs Dental Care, Regularly: Yes Physical Activity Frequency: Daily Seatbelt Use: always Assistive Devices: Cane Review of Systems Review of Systems: As per HPI. Physical Exam Constitutional: WD/WN, vitals as above Eyes: PERRL, conjunctivae normal, anicteric sclerae Respiratory: normal respiratory effort, lungs clear to auscultation Cardiovascular: Rate/Rhythm: regular rhythm and + tachycardic Heart Sounds: normal S1 and normal S2 Trace lower extremity edema. Gastrointestinal (Abdomen): normal bowel sounds, soft, nontender, no hepatosplenomegaly Psychiatric: A+Ox3, euthymic affect Results & Data Results & Data ([facility]) Vital Signs (Past 12 Hours) Vital Signs Temp Pulse Pulse Resp BP BP Pulse Ox 06/17/22 23:23 100 02/08/23 23:00 128 H 18 166/104 H 99 06/17/22 21:50 100 06/17/22 21:49 70 18 100 06/17/22 20:57 36.6 C 85 18 186/91 H 98 O2 Del Method O2 Flow Rate 06/17/22 23:23 Room Air 0 06/17/22 23:00 Room Air 06/17/22 21:50 Room Air 06/17/22 21:49 Room Air 06/17/22 20:57 Room Air Supervising Physician Co-Signing Physician Notes Patient seen and examined, chart reviewed, case discussed with Dr. Darnell and I agree with the assessment and plan as above Resident Activity Tracking Resident Involvement: Resident Care Provided Care Provided: Adult Hospital Medicine (1) Chest pain Chest pain type: unspecified Qualified Code(s): R07.9 - Chest pain, unspecified
[2022-06-18] MEDS ORDERED: LORazepam 2 MG/1 ML VIAL IV STA (00:24)
--- NOTE | 2022-06-18 00:57 | Emergency Department Note ---
History of Present Illness General Chief complaint: Chest Pain Stated complaint: CHEST PRESSURE,SICK STOMACH,HEADACHE Time Seen by Provider: 06/17/22 21:28 History of Present Illness Maximum Pain Intensity: 6 This 66-year-old female presents to the ER complaining of chest tightness that r adiates up and towards her back today. Patient follows with cardiology with Juan M. She had a recent nuc med test that was normal. Her Holter monitor showed multiple episodes of SVT. Patient denies fevers, abdominal pain, leg pain or swelling. Home Medications Medication Instructions Recorded Confirmed Type calcium carbonate 600 mg-vitamin 1 tab PO BID 06/21/18 06/17/22 History D3 5 mcg (200 unit) capsule (Calcium 600 + D(3)) duloxetine 60 mg capsule,delayed 60 mg PO QAM 06/24/20 06/17/22 History release (Cymbalta) B-complex with vitamin C 1 cap PO QAM 07/09/21 06/17/22 History ferrous sulfate 325 mg (65 mg 325 mg PO QAM 07/09/21 06/17/22 History iron) tablet (Feosol) docusate sodium 100 mg capsule 100 mg PO PM 07/10/21 06/17/22 History (Dulcolax Stool Softener (docusate)) ascorbate calcium (vitamin C) 500 1 g PO QPM 10/10/21 06/17/22 History mg tablet magnesium 250 mg tablet 500 mg PO QAM 10/10/21 06/17/22 History levothyroxine 100 mcg capsule 100 mcg PO QDL 12/18/21 06/17/22 History losartan 100 mg tablet 100 mg PO QAM 12/18/21 06/17/22 History pantoprazole 40 mg tablet,delayed 40 mg PO HS 12/18/21 06/17/22 History release ropinirole 1 mg tablet 1 mg PO QDL 02/01/22 06/17/22 History ropinirole 1 mg tablet 2 mg PO HS 02/01/22 06/17/22 History metoprolol succinate 25 mg 25 mg PO QAM 02/20/22 06/17/22 History tablet,extended release 24 hr aspirin 81 mg tablet,delayed 81 mg PO QPM 03/11/22 06/17/22 History release hydroxychloroquine 200 mg tablet 200 mg PO AMHS 03/11/22 06/17/22 History lactobacillus comb no.10 20 20,000 mmu cells PO DAILY 03/11/22 06/17/22 History billion cell capsule (Probiotic) triamterene 37.5 1 cap PO QAM 04/25/22 06/17/22 History mg-hydrochlorothiazide 25 mg capsule Oxygen Home #1 ea 04/30/22 06/10/22 Rx prednisone 5 mg tablet 10 mg PO QAM 06/05/22 06/17/22 History gabapentin 100 mg capsule 100 mg PO TID #270 caps 06/15/22 06/17/22 Rx Allergies Allergy/AdvReac Type Severity Reaction Status Date / Time rifampin Allergy Intermediate cardiac Verified 06/17/22 23:08 arrhymia + renal failure Past Med/Surg History Medical History Essential tremor Bilateral hands - mild/intermittent GERD (gastroesophageal reflux disease) Well controlled and stable Giant cell arteritis Temporal biopsy was negative, being treated for this as patient reports she had all symptoms. follows with Dr Easley ([facility]) On Prednisone x 1.5 months - currently down to Prednisone 15mg BID - following with rheum for taper to f/u Rheumatology 03/04/22 History of COVID-26 July 2020. no current problems History of recent steroid use Pt currently on tapering Prednisone dose for PMR and giant cell arteritis- Prednisone started around beginning of November 2021 and is continue on tapering dose - recently changed from Prednisone 15 mg BID Hx MRSA infection ~2016 in the finger, dx at [facility]. Osteomyelitis- did have surgery to remove Hx of kidney disease WNL CARLOTA/WAS STAGE 3 Hx of sepsis R/t kidney infection August 2021 and treated at [facility]. Hypertension variable per pt, recently self adjusted metoprolol and triamterene-HCTZ Hypothyroidism Interdigital neuroma of foot HX FOOT INJECTIONS *DONE UNDER ANESTHESIA Intractable muscle spasm Patient reports she will have random muscle spasms, unable to have any definitive diagnosis and followed with various physicians, better with the prednisone currently. Myopathy Had negative muscle biopsy Neuropathy Pacemaker INSERTED 2018/recurrent syncope secondary to symptomatic bradycardia. Paroxysmal SVT (supraventricular tachycardia) recently treated in Emergency Room at [facility] for syncope s/p TKA 01/2022. brent ent was diagnosed with a UTI with treatment of abx and "runs of SVT" Polymyalgia rheumatica On Prednisone - x 1.5 months Restless legs syndrome Rheumatoid arthritis QUESTIONABLE- SERUM NEGATIVE Right bundle branch block (RBBB) FOLLOWS WITH DR. FERMIN Sleep apnea Noncompliant with CPAP Spinal stenosis of lumbar region Spondylolysis Vascular disease Renal artery stenosis, celiac/SMA stenosis- no intervention felt necessary per 02/05/21 vascular note Per patient- seen at [facility] and felt report was read incorrect and patient has no significant stenosis Surgical History Encounter for biopsy (07/09/21) Left Thigh Muscle Biopsy - Solo Parada, , FACS 07/09/2021 History of bilateral tubal ligation History of breast biopsy aspiration of cyst from left breast benign History of cholecystectomy History of colonoscopy History of dilatation and curettage History of esophagogastroduodenoscopy (EGD) History of hand surgery right finger left hand--I&D History of temporal artery biopsy History of tooth extraction History of total abdominal hysterectomy and bilateral salpingo-oophorectomy S/P cardiac pacemaker procedure placed 2019 at [facility]. Status post right knee replacement (~01/2022) Status post right knee replacement 01/16/22: LMA#5 + PNB. Family History Grandmother (Maternal) Family history of diabetes mellitus Father Myocardial infarction Lung cancer Hypertension Mother Acute myocardial infarction Hypertension Other No family history of adverse response to anesthesia Denies family history of Ovarian cancer Breast cancer Colorectal cancer Social History Smoking Status: Never smoker Second Hand Exposure: Yes (parents smoked); Hx Alcohol Use: No Hx Substance Use: No Preferred Language: Tamazight Communication Ability: Effective Visual Impairment: No Limitations Book Coverer Required: No Beliefs That Will Affect Care: None marital status: Current Living Situation: Spouse Current Living Situation Comment: Lives w/ spouse at home current occupational status: employed and retired How many Children do You have: 2 Feels Safe at Home: Yes Childhood Exposure to Second-Hand Smoke: Yes Diet Comment: low dairy caffeine: Yes during the past year weight has: increased > 10 lbs Dental Care, Regularly: Yes Physical Activity Frequency: Daily Seatbelt Use: always Assistive Devices: Cane Review of Systems A total of 10 systems reviewed and were otherwise negative Physical Exam Vital Signs Vital Signs - 24 hr 06/17/22 20:57 06/17/22 21:49 06/17/22 21:50 Temperature 36.6 C Temperature Source Temporal Artery Scan Pulse Rate 85 Pulse Rate [Apical] 70 Pulse Rhythm [Apical] Regular Pulse Strength [Apical] Normal Respiratory Rate 18 18 Respiratory Effort / Characteristics Non-Labored Spontaneous Non-Labored Spontaneous Respiratory Depth Normal Normal Respiratory Pattern Regular Blood Pressure 186/91 H Blood Pressure [Right Arm] Blood Pressure Mean 122 Blood Pressure Mean [Right Arm] Blood Pressure Position [Right Arm] Pulse Oximetry 98 100 100 Oxygen Delivery Method Room Air Room Air Room Air Oxygen Flow Rate Sepsis Recent Fever Within 48 Hours No Sepsis New/Unexplained Change in Mental Status No Sepsis Action Taken by Nursing No Action Required 06/17/22 23:00 06/17/22 23:23 Temperature Temperature Source Pulse Rate Pulse Rate [Apical] 128 H Pulse Rhythm [Apical] Regular Pulse Strength [Apical] Normal Respiratory Rate 18 Respiratory Effort / Characteristics Non-Labored Spontaneous Respiratory Depth Normal Respiratory Pattern Regular Blood Pressure Blood Pressure [Right Arm] 166/104 H Blood Pressure Mean Blood Pressure Mean [Right Arm] 124 Blood Pressure Position [Right Arm] Semi-fowlers Pulse Oximetry 99 100 Oxygen Delivery Method Room Air Room Air Oxygen Flow Rate 0 Sepsis Recent Fever Within 48 Hours Sepsis New/Unexplained Change in Mental Status Sepsis Action Taken by Nursing VITALS: Vitals are noted on the nurse's note and reviewed by myself. Vital signs stable. GENERAL: Pleasant anxious appearing female, in no acute distress, nondiaphoretic, well-developed well-nourished. SKIN: The skin was without rashes, erythema, edema, or bruising. There is no tenting of the skin. Capillary reflex less than 2 seconds. HEAD: Normocephalic atraumatic. EARS: External auditory canals clear, EYES: Pupils equal round and reactive to light and accommodation. Conjunctivae without injection, sclerae without icterus. Extraocular movements intact. NOSE: Patent, turbinates without inflammation or discharge. MOUTH: Mucous membranes moist. Pharynx without erythema or exudate. Uvula midline. Airway patent. Tongue does not deviate. NECK: Supple without nuchal rigidity. No lymphadenopathy. No thyromegaly. Cervical spine is nontender. No JVD. HEART: Regular rate and rhythm LUNGS: Clear to auscultation bilaterally without wheezes, rales or rhonchi. No retractions or accessory muscle use. ABDOMEN: Positive bowel sounds x 4. Normal tympanic percussion. Soft, nontender, without masses or organomegaly. Glover sign negative. No guarding or rebound tenderness. No CVA tenderness MUSCULOSKELETAL: No muscle atrophy, erythema, or edema noted. NEURO: Patient was alert and oriented to person place and time. Normal sensation to light and sharp touch. No focal neurological deficits. Course Administered Medications Discontinued Medications Acetaminophen (Ofirmev) 1,000 mg in 100 mls @ 400 mls/hr IV NOW STA Stop: 06/17/22 23:17 Last Infusion: 06/17/22 23:30 Dose: 0 mls/hr Documented By: Admin: 06/17/22 23:11 Dose: 400 mls/hr Documented By: HIRAM Sodium Chloride (Nss 1000ml) 500 mls @ 999 mls/hr IV .Q31M ONE Stop: 06/17/22 23:55 Last Infusion: 06/18/22 00:22 Dose: 0 mls/hr Documented By: Admin: 06/17/22 23:42 Dose: 999 mls/hr Documented By: HIRAM Ioversol (Optiray 320 500ml) 125 ml IV ONCE ONE Stop: 06/17/22 22:58 Last Admin: 06/17/22 22:57 Dose: 109 ml Documented By: ALBINA Lorazepam (Lorazepam 2 Mg/1 Ml Vial) 1 mg IV NOW STA Stop: 06/18/22 00:25 Last Admin: 06/18/22 00:44 Dose: 1 mg Documented By: HIRAM Medical Decision Making Medical Records Attestation: I reviewed the patient's medical records. Home Medications Current Medication List: was personally reviewed by me Laboratory Data Attestation: I reviewed the patient's lab results. 06/17/22 21:05 06/17/22 21:05 Lab Results 06/17/22 06/17/22 06/17/22 Range/Units 21:05 21:05 21:05 WBC 6.95 (4.8-10.8) K/ul RBC 4.57 (4.20-5.40) M/uL Hgb 12.7 (12.0-16.0) g/dl Hct 40.3 (37.0-47.0) % MCV 88.2 (80.0-100.0) fL MCH 27.8 (25.0-34.0) pg MCHC 31.5 L (32.0-36.0) g/dL RDW Std Deviation 46.9 H (36.4-46.3) fL RDW Coeff of Rowdy 14.6 H (11.5-14.5) % Plt Count 250 (130-400) K/uL MPV 11.9 (9.4-12.4) fL Immature Gran % (Auto) 0.9 % Neut % (Auto) 57.2 % Lymph % (Auto) 24.5 % [place] % (Auto) 11.4 % Eos % (Auto) 5.3 % Baso % (Auto) 0.7 % Neut # (Auto) 3.98 (1.40-6.50) K/uL Lymph # (Auto) 1.70 (1.2-3.4) K/uL [place] # (Auto) 0.79 H (0.11-0.59) K/uL Eos # (Auto) 0.37 (0-0.50) K/uL Baso # (Auto) 0.05 (0-0.2) K/uL Immature Gran # (Auto) 0.06 (0.01-0.20) K/uL PT 10.4 (9.0-12.0) Seconds INR 1.0 (0.9-1.1) APTT 24.5 (21.0-31.0) Seconds PTT Ratio 0.9 Sodium 148 H (136-145) mmol/L Potassium 4.0 (3.5-5.1) mmol/L Chloride 109 H (98-107) mmol/L Carbon Dioxide 32 (21-32) mmol/L Anion Gap 7 (3-11) BUN 30 H (6-23) mg/dl Creatinine 1.28 H (0.6-1.2) mg/dl Est Cr Clr Drug Dosing Not Reportable Est GFR ( Amer) 50.8 ml/min Est GFR (Non-Af Amer) 43.8 ml/min BUN/Creatinine Ratio 23.4 H (10-20) Glucose 88 (70-99(Fasting)) mg/dl Calcium 10.0 (8.5-10.1) mg/dl Total Bilirubin 0.4 (0.2-1.0) mg/dl AST 25 (13-39) U/L ALT 28 (7-52) U/L Alkaline Phosphatase 70 (34-104) U/L Troponin I High Sens 138.3 H* (0-14) pg/ml Total Protein 7.4 (6.0-8.3) gm/dl Albumin 4.3 (3.4-5.0) gm/dl Globulin 3.1 (2.5-4.0) gm/dl Albumin/Globulin Ratio 1.4 (0.9-2) Lipase 34 (11-82) U/L Urine Color Urine Appearance (Clear) Urine pH (4.5-7.5) Ur Specific Stra[place]hn (1.000-1.030) Urine Protein (Negative) Urine Glucose (UA) (Negative) Urine Ketones (Negative) Urine Blood (Negative) Urine Nitrite (Negative) Urine Bilirubin (Negative) Urine Urobilinogen (Negative) Ur Leukocyte Esterase (Negative) Urine WBC (Auto) (0-5) /hpf Urine RBC (Auto) (0-4) /hpf U Hyaline Cast (Auto) (0-5) /lpf U Epithel Cells (Auto) (0-5) /lpf Urine Bacteria (Auto) (Negative) SARS-CoV-2, RNA, NAAT (NEGATIVE) 06/17/22 06/17/22 06/17/22 Range/Units 23:05 23:10 23:14 WBC (4.8-10.8) K/ul RBC (4.20-5.40) M/uL Hgb (12.0-16.0) g/dl Hct (37.0-47.0) % MCV (80.0-100.0) fL MCH (25.0-34.0) pg MCHC (32.0-36.0) g/dL RDW Std Deviation (36.4-46.3) fL RDW Coeff of Rowdy (11.5-14.5) % Plt Count (130-400) K/uL MPV (9.4-12.4) fL Immature Gran % (Auto) % Neut % (Auto) % Lymph % (Auto) % [place] % (Auto) % Eos % (Auto) % Baso % (Auto) % Neut # (Auto) (1.40-6.50) K/uL Lymph # (Auto) (1.2-3.4) K/uL [place] # (Auto) (0.11-0.59) K/uL Eos # (Auto) (0-0.50) K/uL Baso # (Auto) (0-0.2) K/uL Immature Gran # (Auto) (0.01-0.20) K/uL PT (9.0-12.0) Seconds INR (0.9-1.1) APTT (21.0-31.0) Seconds PTT Ratio Sodium (136-145) mmol/L Potassium (3.5-5.1) mmol/L Chloride (98-107) mmol/L Carbon Dioxide (21-32) mmol/L Anion Gap (3-11) BUN (6-23) mg/dl Creatinine (0.6-1.2) mg/dl Est Cr Clr Drug Dosing Est GFR ( Amer) ml/min Est GFR (Non-Af Amer) ml/min BUN/Creatinine Ratio (10-20) Glucose (70-99(Fasting)) mg/dl Calcium (8.5-10.1) mg/dl Total Bilirubin (0.2-1.0) mg/dl AST (13-39) U/L ALT (7-52) U/L Alkaline Phosphatase (34-104) U/L Troponin I High Sens 115.3 H* (0-14) pg/ml Total Protein (6.0-8.3) gm/dl Albumin (3.4-5.0) gm/dl Globulin (2.5-4.0) gm/dl Albumin/Globulin Ratio (0.9-2) Lipase (11-82) U/L Urine Color Dark Yellow Urine Appearance Clear (Clear) Urine pH 5.0 (4.5-7.5) Ur Specific [place] 1.032 H (1.000-1.030) Urine Protein Negative (Negative) Urine Glucose (UA) Negative (Negative) Urine Ketones Trace H (Negative) Urine Blood Negative (Negative) Urine Nitrite Negative (Negative) Urine Bilirubin Negative (Negative) Urine Urobilinogen Negative (Negative) Ur Leukocyte Esterase 1+ H (Negative) Urine WBC (Auto) >30 H (0-5) /hpf Urine RBC (Auto) 0-4 (0-4) /hpf U Hyaline Cast (Auto) 5-10 H (0-5) /lpf U Epithel Cells (Auto) >30 H (0-5) /lpf Urine Bacteria (Auto) Negative (Negative) SARS-CoV-2, RNA, NAAT NEGATIVE (NEGATIVE) Imaging Data Attestation: I personally reviewed and interpreted this imaging study as foll ows: MDM Narrative Prior records/ancillary studies reviewed. Triage Nursing notes reviewed. Additional history obtained from family. The patient's history was concerning for chest pain. Differential diagnosis: Etiologies such as cardiac ischemia, aortic dissection, pulmonary embolism, pneumonia, pneumothorax, musculoskeletal, infections, pericarditis, myocarditis, esophageal rupture, gastrointestinal, as well as others were entertained. Physical examination: As above. ER treatment provided: An order was placed for continuous cardiac monitoring. The monitor shows a rate of 60-1 50 with a sinus rhythm per my interpretation. Tylenol, Ativan, IV fluids were ordered On reassessment the patient felt better. Diagnostic interpretation by me: #1 the electrocardiogram was negative for pathologic change. Ordered for chest pain EKG: Normal sinus, T wave inversion in lead III, T wave inversions in the anteroseptal leads, rate of 78, nonspecific intraventricular block, EKG Compared to prior EKG with no acute changes noted. Impression normal sinus rhythm with T wave inversions that persist from prior EKG with nonspecific intr aventricular block per my interpretation I think arrhythmia is unlikely. EKG shows no interval abnormalities such as QT prolongation or WPW. There are no findings to suggest Brugada syndrome. Cardiac monitoring in the emergency department reveals no tachycardic or bradycardic dysrhythmia. Hypertrophic cardiomyopathy was considered but there are no clear historical elements pointing toward this. EKG is not suggestive. The QRS voltage is not extremely large #2 EKG ordered for tachycardia EKG: Normal sinus, T wave inversion in lead III, T wave inversions in the anteroseptal leads, rate of 129 nonspecific intraventricular block, EKG Compared to prior EKG with no acute changes noted. Impression sinus tachycardia with T wave inversions that persist from prior EKG with nonspecific intraventr icular block per my interpretation I think arrhythmia is unlikely. EKG shows no interval abnormalities such as QT prolongation or WPW. There are no findings to suggest Brugada syndrome. Cardiac monitoring in the emergency department reveals no tachycardic or bradycardic dysrhythmia. Hypertrophic cardiomyopathy was considered but there are no clear historical elements pointing toward this. EKG is not suggestive. The QRS voltage is not extremely large The labs Independently Interpreted by myself revealed elevated troponin and repeat was ordered. No worrisome leukocytosis, stable H&H Imaging studies: Chest x-ray with no acute consolidation, pneumothorax or free air per my interpretation CTA CHEST: Impression: No pulmonary embolism or other acute abnormality Radiologist: Endy Romero MD HEART SCORE: Hx: high/mod/low suspicion: 1 ECG: ST depression/nonspecific changes/normal: 1 Age: Greater than 65/45-64/less than 45: 2 Risk factors: (Hypertension, hyperlipidemia, diabetes, coronary disease, tobacco use, cocaine use): 2 Troponin: Greater than 2 times normal limits/1-2 times normal limits/normal: 2 Total: 8 Consultation: A consultation was placed with the hospitalist. The case was discussed and diagnostics were reviewed. The patient was evaluated in the ER for further treatment. Exam and history seem consistent with multiple episodes of SVT with an elevated troponin and unchanged EKG. Patient's positive troponin could be related to her multiple episodes of SVT per chart review. Patient was feeling better. Medicine was consulted and the case was discussed. Labs and diagnostics were) interpreted by myself. Radiology read the CAT scan. Patient is agreeable treatment plan of admission. Medicine will evaluate. By the evaluation outlined above emergent etiologies such as aortic dissection, pulmonary embolism, pneumonia, pneumothorax, infections, pericarditis, myocarditis, gastrointestinal, as well as others were deemed relatively unlikely. The pt informed about the findings as listed above. All questions were answered and pleased with the treatment. The chart was completed utilizing Stream Speech voice recognition software. Grammatical errors, random word insertions, pronoun errors, and incomplete sentences are an occassional consequence of this system due to software limitations, ambient noise, and hardware issues. Any formal questions or concerns about the content, text, or information contained within the body of this dictation should be directly addressed to the physician operations assistant for clarification. Impression & Plan Elevated troponin, Chest pain Discharge Plan Visit Data Chief Complaint: Chest Pain Stated Complaint: CHEST PRESSURE,SICK STOMACH,HEADACHE ED Provider: Solo Cherry ED Midlevel Provider: Laura Dan Discharge Problem: Elevated troponin, Chest pain Patient Disposition: Admitted As Inpatient Condition: Fair Forms Stand Alone Forms: [facility] Prescriptions Prescriptions: No Action (DME) Oxygen Home Liters Per Minute See Rx Instructions .Route Qty: 1 0RF Rx Instructions: 2 liters nasal canula with exertion gabapentin 100 mg capsule 100 mg PO TID Qty: 270 3RF duloxetine [Cymbalta] 60 mg capsule,delayed release(DR/EC) 60 mg PO QAM Label Comments: TAKES FOR PAIN Calcium 600 + D(3) 600 mg calcium- 200 unit Capsule 1 tab PO BID ferrous sulfate [Feosol] 325 mg (65 mg iron) tablet 325 mg PO QAM Label Comments: TAKING DAILY ONLY QAM B-complex with vitamin C Capsule 1 cap PO QAM ascorbate calcium (vitamin C) 500 mg tablet 1 g PO QPM docusate sodium [Dulcolax Stool Softener (dss)] 100 mg Capsule 100 mg PO PM magnesium 250 mg tablet 500 mg PO QAM pantoprazole 40 mg tablet,delayed release (DR/EC) 40 mg PO HS losartan 100 mg tablet 100 mg PO QAM levothyroxine 100 mcg capsule 100 mcg PO QDL Label Comments: TAKES AT 3PM metoprolol succinate 25 mg tablet extended release 24 hr 25 mg PO QAM ropinirole 1 mg tablet 2 mg PO HS ropinirole 1 mg tablet 1 mg PO QDL Rx Instructions: takes at 1200 prednisone 5 mg tablet 10 mg PO QAM aspirin 81 mg tablet,delayed release (DR/EC) 81 mg PO QPM hydroxychloroquine 200 mg tablet 200 mg PO AMHS Probiotic 20 billion cell Capsule 20,000 mmu cells PO DAILY triamterene-hydrochlorothiazid 37.5-25 mg capsule 1 cap PO QAM Referrals Referrals: Michael King MD [Primary Care Provider] -
[2022-06-18] MEDS ORDERED: rOPINIRole HCL 2 MG TABLET PO STA (01:07)
[2022-06-18] MEDS ORDERED: METOPROLOL TARTRATE 1 MG/ML VIAL IV STA (01:10)
--- NOTE | 2022-06-18 03:56 | Billing Data ---
Date of Service June 18, 2022 Coding Level of Care Code 78554 INT INP/OBS CARE
[2022-06-18] MEDS ORDERED: LACTATED RINGER'S 1,000 ML IV SCH (04:16)
[2022-06-18] MEDS ORDERED: ACETAMINOPHEN 325 MG TAB PO PRN (06:00)
--- NOTE | 2022-06-18 07:11 | CT Scan Report ---
CT angio chest PE protocol CT DOSE: 720.12 mGy.cm HISTORY: 66 years-old Female with PE, CP-back. Acute chest pain with shortness of breath TECHNIQUE: Multiple CTA images of the chest were obtained after the intravenous administration of ml Optiray. Coronal and sagittal MIPS were obtained from the axial data set and were submitted for revi ew. All measurements were obtained according to NASCET criteria. A dose lowering technique was utili zed adhering to the principles of ALARA. COMPARISON: CTA chest 04/25/2022. FINDINGS: CTA: Mild cardiomegaly without pericardial effusion. Left subclavian pacer. No thoracic aortic aneurysm or dissection. Unremarkable pulmonary artery. The subsegmental branches are not well opacified secondar y to contrast bolus timing. No pulmonary emboli are identified. CT CHEST: No dominant thyroid nodule is seen. No pathologically adenopathy by CT size criteria. Stable 4 mm nod ule within the left lower lobe, image 53. There are several additional scattered 3 mm solid nodules w hich are also stable and likely benign. Mild subsegmental bibasilar atelectasis. There is no pneumoth orax, pleural effusion or focal airspace consolidation. The imaged upper abdominal structures are normal. The osseous structures appear intact. IMPRESSION: 1. Cardiomegaly without pulmonary emboli identified. 2. No pleural effusion or airspace consolidation to suggest pneumonia. ACT 112: Negative or not required by law. The above report was generated using voice recognition software. It may contain grammatical, syntax o r spelling errors. Electronically signed by: Blake Strong M.D. 06/18/2022 7:08 AM
--- NOTE | 2022-06-18 07:17 | XRay Report ---
XR chest 1V portable HISTORY: 66 years-old Female cough acute cough COMPARISON: CTA chest of same day TECHNIQUE: AP view of the chest FINDINGS: Cardiomediastinal and hilar silhouettes are within normal limits. Left subclavian pacer. Atherosclero sis of the aorta. No pneumothorax, large pleural effusion or overt pulmonary edema. Mild nonspecific interstitial coarsening. Degenerative changes of the shoulders and spine. IMPRESSION: No acute process. ACT 112: Negative or not required by law. The above report was generated using voice recognition software. It may contain grammatical, syntax o r spelling errors. Electronically signed by: Blake Strong M.D. 06/18/2022 7:16 AM
[2022-06-18] MEDS: GABAPENTIN 100 MG CAP PO SCH ×2 (08:43→14:32)
[2022-06-18] MEDS ORDERED: Flu Vaccine-High Dose (Fluzone-HD) PF 65+ 0.7mL SYR IM ONE (09:00)
[2022-06-18] MEDS ORDERED: TRIAMTERENE/HCTZ 37.5/25MG CAP PO SCH (09:00)
[2022-06-18] MEDS ORDERED: FERROUS SULFATE 325 MG TAB PO SCH (09:00)
[2022-06-18] MEDS ORDERED: DULoxetine HCL 60 MG CAP PO SCH (09:00)
[2022-06-18] MEDS ORDERED: LOSARTAN POTASSIUM 50 MG TAB PO SCH (09:00)
[2022-06-18] MEDS ORDERED: METOPROLOL SUCC 25MG EXT REL TAB PO SCH (09:00)
[2022-06-18] MEDS ORDERED: HYDROXYCHLOROQUINE SULFATE 200 MG TAB PO SCH (09:00)
[2022-06-18] MEDS ORDERED: MAGNESIUM OXIDE 400 MG TAB PO SCH (09:00)
[2022-06-18] MEDS ORDERED: PNEUMOCOCCAL Polysaccharide Vaccine 25mcg/0.5mL vial/Syr IM ONE (09:00)
[2022-06-18] MEDS ORDERED: ENOXAPARIN INJ 30 MG/0.3 ML SYR SQ SCH (09:00)
[2022-06-18] MEDS ORDERED: predniSONE 10 MG TABLET PO SCH (09:00)
--- NOTE | 2022-06-18 09:08 | Hospitalist Progress Note ---
Date of Service June 18, 2022 Assessment & Plan (1) Chest pain: Plan: Patient is a 66 yo female with extensive PMHx of HTN, RA, GCA, PMR, syncope, erosive OA, CKD stage III, GERD, symptomatic bradycardia s/p pacemaker placement, restless leg syndrome, paroxysmal SVT, hypothyroidism, and hyperlipidemia admitted for chest pain rule out. - Patient with persistent episodes of CP associated with hypertension, hypotension, tachycardia, bradycardia, pre-syncopal sensation, and syncope - Mild elevation of HS-trop in ER to 138.3; repeat 115.3. - EKG this admission tachycardic to 128, no significant changes from EKG on prevoius admission. - CTA chest negative for PE or acute process. - One episode of chest pain unprovoked while watching TV. Suspect may have had an episode of SVT w/ demand ischemia to heart causing symptoms. - Echo from 04/25 showing EF 55-60%, no wall motion abnormalities noted. - Will recheck TTE. Results are pending - EKG PRN for chest pain. - Fall precautions in place due to history of syncope and falls (falls from neuropathy) - Continue to monitor on med/tele med/tele. (2) HTN (hypertension): Plan: - Continue home metoprolol 25mg daily, triamterene-hydrochlorothiazide daily (3) Hyperlipidemia: Plan: - Patient not on statin medication, lipid panel from 04/25/22 WNL. (4) Hypothyroidism: Plan: - Continue home Synthroid - Last TSH 03/13/22 wnl (1.02) (5) Status post placement of other cardiac pacemaker: Plan: - Placed 12/2018 (6) Giant cell arteritis: Plan: - Follows with Dr. Blevins. - History of positive BRIGHT - Continue home prednisone 10mg po daily - Continue home Plaquenil, Cymbalta, and Gabapentin (7) Rheumatoid arthritis: Plan: - See above Giant Cell Arteritis (8) GERD (gastroesophageal reflux disease): Plan: - Continue home Protonix 40mg po nightly (9) Restless leg syndrome: Plan: - Continue home ropinirole (10) CKD (chronic kidney disease), stage III: Plan: - Cr on admission 1.28; last Cr 1 month ago 1.13 - Continue to follow w/ AM BMP (11) Iron deficiency anemia: Plan: - Continue home ferrous sulfate 325mg daily - Patient w/o anemia on labs currently - Hgb 12.7 (baseline Hgb at times 9-11) (12) Paroxysmal SVT (supraventricular tachycardia): Plan: - 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 Code status: Conditional - CPR and shock if necessary but no intubation. Dispo: Med/tele Admission and Anticipated Discharge Date Admission Date: June 18, 2022 Subjective Patient is awake in bed and states she is feeling much better and is asking when she can go home. She presented to the ER due to chest pain yesterday that was in her lower chest area and radiated around her chest like a band and she felt like she was unable to breath. She was sitting watching TV when the pain occurred and it was constant and she decided to come to the ER. Currently she states she is feeling better and without any CP or SOB. Review of Systems Constitutional: no fever, no chills and no sweats Eyes: no blind spots, no diplopia and no eye pain Ear, Nose, Mouth, Throat: no tinnitus, no dizziness and no epistaxis Respiratory: no cough, no chest congestion and no dyspnea Cardiovascular: + chest pain, + chest pain at rest and + edema; no chest pain with activity, no radiating jaw, neck or arm pain, no syncope and no calf pain Gastrointestinal: + abdominal pain, + bloating and + nausea; no vomiting Musculoskeletal: + back pain, + joint pain, + stiffness, + myalgia and + body aches Integumentary: no rash, no lesions and no new lesions Neurologic: + restless legs; no falls, no seizure-like activity and no abnormal speech hx of syncope but no syncopal episodes recently Psychiatric: no suicidal ideation, no anxiety and no confusion Endocrine: no polydipsia, no polyphagia and no polyuria Physical Exam Constitutional: WD/WN, vitals as above Neck: trachea midline, no thyromegaly Respiratory: normal respiratory effort, lungs clear to auscultation Cardiovascular: Rate/Rhythm: regular rate and regular rhythm Extremities: + pedal edema and + edema; no calf tenderness Gastrointestinal (Abdomen): normal bowel sounds, soft, nontender, no hepatosplenomegaly Psychiatric: A+Ox3, euthymic affect Results & Data Results & Data ([facility]) Vital Signs (Past 12 Hours) Vital Signs Pulse Resp BP Pulse Ox O2 Del Method O2 Flow Rate 06/18/22 08:00 81 21 166/84 H 98 Room Air 06/18/22 07:11 82 24 147/63 H 99 Room Air 06/18/22 04:30 75 16 174/77 H 96 Room Air 06/18/22 03:34 127 H 18 110/77 95 Room Air 06/18/22 01:35 82 20 159/64 H 96 Room Air 06/17/22 23:23 100 Room Air 0 06/17/22 23:00 128 H 18 166/104 H 99 Room Air 06/17/22 21:50 100 Room Air 06/17/22 21:49 70 18 100 Room Air Laboratory Results Abnormal lab results 06/17/22 06/17/22 06/17/22 Range/Units 21:05 21:05 23:05 MCHC 31.5 L (32.0-36.0) g/dL RDW Std Deviation 46.9 H (36.4-46.3) fL RDW Coeff of Rowdy 14.6 H (11.5-14.5) % [place] # (Auto) 0.79 H (0.11-0.59) K/uL Sodium 148 H (136-145) mmol/L Chloride 109 H (98-107) mmol/L BUN 30 H (6-23) mg/dl Creatinine 1.28 H (0.6-1.2) mg/dl BUN/Creatinine Ratio 23.4 H (10-20) Troponin I High Sens 138.3 H* (0-14) pg/ml Ur Specific Brogue 1.032 H (1.000-1.030) Urine Ketones Trace H (Negative) Ur Leukocyte Esterase 1+ H (Negative) Urine WBC (Auto) >30 H (0-5) /hpf U Hyaline Cast (Auto) 5-10 H (0-5) /lpf U Epithel Cells (Auto) >30 H (0-5) /lpf 02/08/23 Range/Units 23:10 MCHC (32.0-36.0) g/dL RDW Std Deviation (36.4-46.3) fL RDW Coeff of Rowdy (11.5-14.5) % [place] # (Auto) (0.11-0.59) K/uL Sodium (136-145) mmol/L Chloride (98-107) mmol/L BUN (6-23) mg/dl Creatinine (0.6-1.2) mg/dl BUN/Creatinine Ratio (10-20) Troponin I High Sens 115.3 H* (0-14) pg/ml Ur Specific [place] (1.000-1.030) Urine Ketones (Negative) Ur Leukocyte Esterase (Negative) Urine WBC (Auto) (0-5) /hpf U Hyaline Cast (Auto) (0-5) /lpf U Epithel Cells (Auto) (0-5) /lpf Diagnostic Findings Chest X-Ray 06/17/22 21:12 XR chest 1V portable HISTORY: 66 years-old Female cough acute cough COMPARISON: CTA chest of same day TECHNIQUE: AP view of the chest FINDINGS: Cardiomediastinal and hilar silhouettes are within normal limits. Left subclavian pacer. Atherosclerosis of the aorta. No pneumothorax, large pleural effusion or overt pulmonary edema. Mild nonspecific interstitial coarsening. Degenerative changes of the shoulders and spine. IMPRESSION: No acute process. ACT 112: Negative or not required by law. The above report was generated using voice recognition software. It may contain grammatical, syntax or spelling errors. Electronically signed by: Blake Strong M.D. 06/18/2022 7:16 AM Chest CTA 06/17/22 21:49 CT angio chest PE protocol CT DOSE: 720.12 mGy.cm HISTORY: 66 years-old Female with PE, CP-back. Acute chest pain with shortness of breath TECHNIQUE: Multiple CTA images of the chest were obtained after the intravenous administration of ml Optiray. Coronal and sagittal MIPS were obtained from the axial data set and were submitted for review. All measurements were obtained according to NASCET criteria. A dose lowering technique was utilized adhering to the principles of ALARA. COMPARISON: CTA chest 04/25/2022. FINDINGS: CTA: Mild cardiomegaly without pericardial effusion. Left subclavian pacer. No thoracic aortic aneurysm or dissection. Unremarkable pulmonary artery. The subsegmental branches are not well opacified secondary to contrast bolus timing. No pulmonary emboli are identified. CT CHEST: No dominant thyroid nodule is seen. No pathologically adenopathy by CT size criteria. Stable 4 mm nodule within the left lower lobe, image 53. There are several additional scattered 3 mm solid nodules which are also stable and likely benign. Mild subsegmental bibasilar atelectasis. There is no pneumothorax, pleural effusion or focal airspace consolidation. The imaged upper abdominal structures are normal. The osseous structures appear intact. IMPRESSION: 1. Cardiomegaly without pulmonary emboli identified. 2. No pleural effusion or airspace consolidation to suggest pneumonia. ACT 112: Negative or not required by law. The above report was generated using voice recognition software. It may contain grammatical, syntax or spelling errors. Electronically signed by: Blake Strong M.D. 06/18/2022 7:08 AM PG Care Time/CCT Total # of Minutes Spent Total Time Spent with Patient: Total time spent is greater than 50% in coordination of care (as documented) at patient's floor/unit and/or counseling patient: Coding Diagnoses Chest pain R07.9 Chest pain type: unspecified HTN (hypertension) I10 Hyperlipidemia E78.5 Hypothyroidism E03.9 Status post placement of other cardiac pacemaker Z95.0 Giant cell arteritis M31.6 Rheumatoid arthritis M06.9 GERD (gastroesophageal reflux disease) K21.9 Restless leg syndrome G25.81 CKD (chronic kidney disease), stage III N18.3 Iron deficiency anemia D50.9 Paroxysmal SVT (supraventricular tachycardia) I47.1 (1) Chest pain Chest pain type: unspecified Qualified Code(s): R07.9 - Chest pain, unspecified
[2022-06-18] MEDS ORDERED: LEVOTHYROXINE SODIUM 100 MCG TABLET PO SCH (11:30)
[2022-06-18] MEDS ORDERED: rOPINIRole HCL 1 MG TABLET PO SCH (11:45)
--- NOTE | 2022-06-18 12:45 | Electrocardiogram Report ---
Test Reason : Blood Pressure : / mmHG Vent. Rate : 076 BPM Atrial Rate : 076 BPM P-R Int : 178 ms QRS Dur : 104 ms QT Int : 402 ms P-R-T Axes : 055 067 008 degrees QTc Int : 452 ms Poor data quality, interpretation may be adversely affected Normal sinus rhythm Right bundle branch block Diffuse Nonspecific ST and T wave abnormality Abnormal ECG When compared with ECG of 24-APR-2022 22:29, Premature ventricular complexes are no longer Present Confirmed by Kg Ortiz ([id number]) on 06/18/2022 12:45:26 PM Referred By: REFERRED SELF Confirmed By:Kg Ortiz
--- NOTE | 2022-06-18 12:46 | Electrocardiogram Report ---
Test Reason : Blood Pressure : / mmHG Vent. Rate : 078 BPM Atrial Rate : 078 BPM P-R Int : 166 ms QRS Dur : 138 ms QT Int : 448 ms P-R-T Axes : 042 062 -07 degrees QTc Int : 510 ms Normal sinus rhythm Right bundle branch block Diffuse Nonspecific ST and T wave abnormality Abnormal ECG When compared with ECG of 17-JUN-2022 21:03, No significant change Confirmed by Kg Ortiz ([id number]) on 06/18/2022 12:45:56 PM Referred By: REFERRED SELF Confirmed By:Kg Ortiz
--- NOTE | 2022-06-18 12:53 | Electrocardiogram Report ---
Test Reason : Blood Pressure : / mmHG Vent. Rate : 129 BPM Atrial Rate : 129 BPM P-R Int : 138 ms QRS Dur : 142 ms QT Int : 376 ms P-R-T Axes : 000 074 -32 degrees QTc Int : 550 ms Sinus tachycardia Right bundle branch block Diffuse Nonspecific ST and T wave abnormality Abnormal ECG When compared with ECG of 17-JUN-2022 21:43, Vent. rate has increased BY 51 BPM Confirmed by Kg Ortiz ([id number]) on 06/18/2022 12:52:34 PM Referred By: REFERRED SELF Confirmed By:Kg Ortiz
--- NOTE | 2022-06-18 15:53 | Discharge Summary ---
Date of Service June 18, 2022 Admission HPI Per Admitting Provider Lisa is a 66 year old female w/ PmHx HTN, RA, GCA, PMR, syncope, erosive OA, CKD stage III, GERD, symptomatic bradycardia s/p pacemaker placement, restless leg syndrome, paroxysmal SVT, hypothyroidism, and hyperlipidemia coming in for chest pain. Patient states that she has a complex past medical history and follows with multiple specialists for her cardiac history. She states that she recently saw [facility] on 06/17 and they had recommended the source of issues may be from the need for better blood pressure control. She said they did not make any adjustments to her medications however she will be following up with Dr. Hatch and they discussed possibly going up on the metoprolol from 25mg qAM to 50mg BID. She states that this afternoon into the evening she started to get heavy chest pressure that was like a tight band across her chest and went into the back that was constant and prevented her from moving up and out of her chair. The onset of it occurred while she was sitting in her chair watching a movie. She also had associated nausea with this however no vomiting. She denies any fevers, chills, diarrhea, constipation, diaphoresis. Patient states she always has palpitations and always has lower extremity edema. In the ED WBC 6.95, Hgb 12.6, platelet 250, electrolyte WNL, BUN 30, Creat 1.28, glucose 88, liver enzymes WNL, Troponin 138.3 initially followed by 115.3 on repeat, lipase 34, U/A w/ LE, WBC, ketones. CXR w/ cardiomegaly and no acute pulmonary process. CTA chest w/o PE or acute process on statrad. EKG w/o any changes from previous EKG from April except rate of 128. Admission Exam Per Admitting Provider Constitutional: WD/WN, vitals as above Eyes: PERRL, conjunctivae normal, anicteric sclerae Respiratory: normal respiratory effort, lungs clear to auscultation Cardiovascular: Rate/Rhythm: regular rhythm and + tachycardic Heart Sounds: normal S1 and normal S2 Trace lower extremity edema. Gastrointestinal (Abdomen): normal bowel sounds, soft, nontender, no hepatosplenomegaly Psychiatric: A+Ox3, euthymic affect Principal Diagnosis chest pain Discharge Exam Constitutional WD/WN, vitals as above Neck trachea midline, no thyromegaly Respiratory normal respiratory effort, lungs clear to auscultation Cardiovascular Rate/Rhythm: regular rate and regular rhythm Heart Sounds: normal S1, normal S2 and + murmur Vessels: no JVD, no carotid bruit and no abdominal aortic bruit Extremities: + edema; no calf tenderness Gastrointestinal (Abdomen) normal bowel sounds, soft, nontender, no hepatosplenomegaly Skin no rashes, warm and dry Psychiatric A+Ox3, euthymic affect Discharge Data Allergies Allergy/AdvReac Type Severity Reaction Status Date / Time rifampin Allergy Intermediate cardiac Verified 06/17/22 23:08 arrhymia + renal failure Consultations 06/18/22 00:08 ED Decision to Admit Stat Ordered Studies 06/17/22 21:49 CT angio chest PE protocol Urgent Hospital Course (1) Chest pain: - Patient with history of persistent episodes of CP associated with hypertension, hypotension, tachycardia, bradycardia, pre-syncopal sensation, and syncope - Mild elevation of HS-trop in ER to 138.3; repeat 115.3. and then further decreased to 62.6 - EKG this admission tachycardic to 128, no significant changes from EKG on previous admission. - CTA chest negative for PE or acute process. - One episode of chest pain/palpitations and dyspnea unprovoked while watching TV. Suspect may have had an episode of SVT w/ demand ischemia to heart causing symptoms. - Echo from 04/25 showing EF 55-60%, no wall motion abnormalities noted. - Repeat TTE with no chagne from previous - EKG PRN for chest pain. - Fall precautions in place due to history of syncope and falls (falls from neuropathy) - Interrogation of pacer Dr Hatch reviewed the pacer with [employer], she had an average of 169 bpm at 18;30 last night and several brief ones at 2AM in the 150s. Dr Hatch recommended sending her home on Metoprolol Succinate 50mg one BID. She has a scheduled follow up with her PCP and plans are already in plce to possibly add on Verapamil if she is doing well on the Metoprolol. Dr Hatch also faxed her records from her recent nuclear stress test and recent cardiology notes as well. (2) HTN (hypertension): - Continue home metoprolol 25mg daily, triamterene-hydrochlorothiazide daily while here this admission - Spoke today with patient's energy manager Dr Hatch who recommended interrogation of her pacer and sending her home on Metoprolol Succinate 50mg one BID. She has a scheduled follow up with her PCP and plans are already in plce to possibly add on Verapamil if she is doing well on the Metoprolol. (3) Hyperlipidemia: Patient is not on a statin Lipid panel in April WNL (4) Hypothyroidism: - Continue home Synthroid - Last TSH 03/13/22 wnl (1.02) (5) Status post placement of other cardiac pacemaker: - Placed 12/2018 - See above interrogation of pacer today (6) Giant cell arteritis: -Follows with Dr. Blevins. - History of positive BRIGHT - Continue home prednisone 10mg po daily - Continue home Plaquenil, Cymbalta, and Gabapentin (7) Rheumatoid arthritis: - See above GCA (8) GERD (gastroesophageal reflux disease): - Continue home Protonix 40mg po nightly (9) Restless leg syndrome: - Continue home ropinirole 1mg in AM 2mg at night (10) CKD (chronic kidney disease), stage III: - Cr on admission 1.28; last Cr 1 month ago 1.13 - Continue to follow w/ AM BMP (11) Iron deficiency anemia: - Continue home ferrous sulfate 325mg daily - Patient w/o anemia on labs currently - Hgb 12.7 (baseline Hgb at times 9-11) (12) Paroxysmal SVT (supraventricular tachycardia): - Spoke with patient's energy manager Dr Hatch and will have nursing interrogate patient's pacemaker and remotely download results through [employer] and Dr Hatch will read the results - Dr Hatch believes patient is having episodes of SVT - Patient had recent nuclear stress testing 06/15/22 and per cardiology her results were normal - She also had a recent Tilt Table testing and her BP increased Plan Plan to discharge patient home today and to start the metoprolol succinate 50mg one BID and keep follow up with her PCP who has directions and recommendations from Dr Hatch her energy manager. Total Time Total Time Spent Total Time Spent (In Minutes): 50 Discharge Plan Discharge Items Patient Disposition: Home - Self-Care Reason For Visit: CHEST PAIN RULE OUT Discharge Diagnosis: Supraventricular tachycardia Condition on Discharge: Good Activity: Resume your previous activity Non-emergency contact: Primary Care Provider and Network Support Call non-emergency contact if: you have any medication questions and your symptoms worsen Follow-up/Referrals: Michael King MD [Primary Care Provider] - Diet: Heart Healthy Addtl Attending Provider Instructions: You were admitted with symptoms of chest discomfort. You had several EKGs with no changes when compared to previous EKGs. You also had a repeat TTE also with no chagne when compared with previous echo. Your pacer was interrogated and you had episodes of SVT at 18;30 and several other episodes at 2:00 AM I spoke with Dr Hatch via phone and messages today who recommended your pacer be interrogated, which he reviewed long with your EKGs and recommended to discharge to home and have you start the metoprolol succinate 50mg one BID tonight and follow up with your PCP and also with cardiology. The cardiology apt is for 07/02/22. You had a recent Tilt table test along with a nuclear stress test that Dr Hatch fxed the results to have them scanned into your EMR system here. Stand-Alone Forms: My [facility] Medications and DC Order Prescriptions: New metoprolol succinate 50 mg tablet extended release 24 hr 50 mg PO BID Qty: 60 0RF Continued (DME) Oxygen Home Liters Per Minute See Rx Instructions .Route Qty: 1 0RF Rx Instructions: 2 liters nasal canula with exertion gabapentin 100 mg capsule 100 mg PO TID Qty: 270 3RF duloxetine [Cymbalta] 60 mg capsule,delayed release(DR/EC) 60 mg PO QAM Label Comments: TAKES FOR PAIN Calcium 600 + D(3) 600 mg calcium- 200 unit Capsule 1 tab PO BID ferrous sulfate [Feosol] 325 mg (65 mg iron) tablet 325 mg PO QAM Label Comments: TAKING DAILY ONLY QAM B-complex with vitamin C Capsule 1 cap PO QAM ascorbate calcium (vitamin C) 500 mg tablet 1 g PO QPM docusate sodium [Dulcolax Stool Softener (dss)] 100 mg Capsule 100 mg PO PM magnesium 250 mg tablet 500 mg PO QAM pantoprazole 40 mg tablet,delayed release (DR/EC) 40 mg PO HS losartan 100 mg tablet 100 mg PO QAM levothyroxine 100 mcg capsule 100 mcg PO QDL Label Comments: TAKES AT 3PM ropinirole 1 mg tablet 2 mg PO HS ropinirole 1 mg tablet 1 mg PO QDL Rx Instructions: takes at 1200 prednisone 5 mg tablet 10 mg PO QAM aspirin 81 mg tablet,delayed release (DR/EC) 81 mg PO QPM hydroxychloroquine 200 mg tablet 200 mg PO AMHS Probiotic 20 billion cell Capsule 20,000 mmu cells PO DAILY triamterene-hydrochlorothiazid 37.5-25 mg capsule 1 cap PO QAM Discontinued metoprolol succinate 25 mg tablet extended release 24 hr 25 mg PO QAM Discharge Orders: Discharge Order (Routine); Ordered 06/18/22 Ordered By: Laura Calle Admission Data Admit Date/Time: 06/18/22 01:28 Attending Provider: Lee Long Admit Provider: Ben Darnell Primary Care Provider: Michael King Other Providers: Libertad Ardon Coding Level of Care Code HOSP INP/OBS DISCH >30 MIN Diagnoses Chest pain R07.9 Chest pain type: unspecified HTN (hypertension) I10 Hyperlipidemia E78.5 Hypothyroidism E03.9 Status post placement of other cardiac pacemaker Z95.0 Giant cell arteritis M31.6 Rheumatoid arthritis M06.9 GERD (gastroesophageal reflux disease) K21.9 Restless leg syndrome G25.81 CKD (chronic kidney disease), stage III N18.3 Iron deficiency anemia D50.9 Paroxysmal SVT (supraventricular tachycardia) I47.1 Time Spent (min) 50
[2022-06-18] MEDS ORDERED: DOCUSATE SODIUM 100 MG CAP PO SCH (21:00)
[2022-06-18] MEDS ORDERED: rOPINIRole HCL 2 MG TABLET PO SCH (21:00)
[2022-06-18] MEDS ORDERED: PANTOprazole 40 MG TAB PO SCH (21:00)
[2022-06-18] MEDS ORDERED: ASPIRIN 81 MG ECTAB PO SCH (21:00)
== END 2022-06-18 14:46 | disposition home or self-care (01) ==
LOC: EDINP 20:55 → ED 20:55 → SUATTDRO 06-18 01:28 → EDINP 06-18 04:15

== ENCOUNTER 2024-09-22 16:23 | Observation (INO) ==
[2024-09-22] MEDS ORDERED: NITROGLYCERIN SL 0.4 MG/TAB TAB SL PRN (16:46)
[2024-09-22 17:03] LABS: Basophils # (auto) 0.06 K/uL (0.00-0.20); Basophils % (auto) 0.8 %; Hematocrit (blood only) 39.2 % (37.0-47.0); Hemoglobin 12.6 g/dl (12.0-16.0); Immature Granulocytes # (auto) 0.13 K/uL (0.01-0.20); Immature Granulocytes % (auto) 1.8 %; Lymphocytes # (auto) 1.72 K/uL (1.20-3.40); Lymphocytes % (auto) 23.7 %; Mean Corpuscular Hemoglobin 29.9 pg (25.0-34.0); Mean Corpuscular Hgb Conc 32.1 g/dL (32.0-36.0); Mean Corpuscular Volume 92.9 fL (80.0-100.0); Mean Platelet Volume 12.1 fL (9.4-12.4); Monocytes # (auto) 0.58 K/uL (0.11-0.59); Neutrophils # (auto) 4.77 K/uL (1.40-6.50); Neutrophils % (auto) 65.7 %; Platelet Count 190 K/uL (130-400); RDW Coefficient of Variation 14.6 % (11.5-14.5); RDW Standard Deviation 49.1 fL (36.4-46.3); Red Blood Count 4.22 M/uL (4.20-5.40); White Blood Count 7.26 K/ul (4.8-10.8)
[2024-09-22 17:19] LABS: Albumin Globulin Ratio 1.7 (0.9-2); Albumin Level 4.5 gm/dl (3.4-5.0); BUN Creatinine Ratio 18.1 (10-20); Bilirubin,Total 0.6 mg/dl (0.2-1.0); Calcium 10.5 mg/dl (8.6-10.3); Creatinine Clr Calc Pharmacy 41.8 ml/min; Globulin 2.7 gm/dl (2.5-4.0); Potassium 4.2 mmol/L (3.5-5.1); Total Protein 7.2 gm/dl (6.0-8.3)
--- NOTE | 2024-09-22 17:19 | XRay Report ---
Clinical History: Chest pain Technique: A frontal view of the chest was obtained Comparison is made to the prior examination dated 03/11/2023 Findings: There are no confluent pulmonary infiltrates. The heart size is within normal limits. No pleural effusion or pneumothorax is seen. There is no definite pulmonary nodule. No fracture is noted. There is a left chest wall pacemaker device. There is contrast within the visualized: Impression: No active disease Electronically signed by Nolberto Stark 09-22-2024 5:18 PM
[2024-09-22 17:28] LABS: Troponin I High Sensitivity 15.1 pg/ml (0-14)
[2024-09-22] MEDS: ASPIRIN 81 MG CHEW PO STA (17:33)
[2024-09-22 17:34] LABS: INR 0.9 (0.9-1.1); Partial Thromboplastin Time 27 Seconds (21-31); Prothrombin Time 10.2 Seconds (9.0-12.0)
[2024-09-22 17:40] LABS: D Dimer 670 ug/L FEU (0-500)
[2024-09-22] MEDS: OPTIRAY 320 125ml IV ONE (18:00)
--- NOTE | 2024-09-22 18:09 | CT Scan Report ---
CT pulmonary angiogram with IV contrast History: Chest pain COMPARISON: 11/29/2022 TECHNIQUE: CT angiography of the chest was performed without IV contrast followed by IV contrast, including 3D post processing CTA image reconstruction. Dose reduction techniques were achieved by using automatic exposure control and/or adjustment of mA and/or kV according to patient size and/or use of iterative reconstruction technique. FINDINGS: Diagnostic quality: Adequate There is no evidence for pulmonary embolism. The heart is not enlarged. Mild coronary calcification. Left chest wall dual-lead AICD. There is no pericardial effusion. There are no abnormally enlarged hilar or mediastinal lymph nodes. The central tracheobronchial tree is clear. The lungs are clear. There is no pleural effusion. Limited visualized upper abdomen. No destructive osseous changes are seen. IMPRESSION: No evidence for pulmonary embolism. Electronically signed by Michael Daley 09-22-2024 6:08 PM
--- NOTE | 2024-09-22 19:10 | History & Physical Report ---
Date of Service September 22, 2024 Assessment & Plan (1) Chest pain: (2) CKD (chronic kidney disease): (3) Elevated alkaline phosphatase level: Plan 68-year-old female PMHx HLD, HTN, GERD, CKD stage III, hypothyroidism, migraine with aura, and PLMD presenting for chest pain starting day of arrival. ED evaluation reveals no leukocytosis, H&H stable 12.6/39.2; PT/INR WNL, D-dimer 670; CMP creatinine 1.44, BUN 26, calcium 10.5, alkaline phosphatase 145; troponin 15.1, pending repeat; CXR without acute findings; chest CTA negative for PE; EKG atrial paced rhythm with prolonged AV conduction, RBBB, T wave abnormality at 82 bpm.; Provided with nitroglycerin 0.4 mg SL and aspirin 324 mg p.o. in ED. #Chest pain/HTN/HLD/PSVT Chest pain starting at morning of arrival, lasting ~ 15-20 minutes in duration with radiation to jaw, neck, and shoulder blades, with associated SOB; Follows with cardiology (Dr. Silva) most recent visit being 08/11/2024; history of PSVT, HTN, HLD, RBBB, symptomatic sinus bradycardia and presence of pacemaker for symptomatic bradycardia (December 2018). Continues to have random episodes of syncope per patient, none within the last week. Takes aspirin daily; Furosemide, losartan, metoprolol, spironolactone, verapamil at home. Trop downtrending upon repeat. - CBC without leukocytosis, H&H stable; TSH WNL - CBC am (monitor H/H) - D-dimer 670; Chest CTA negative PE -- pt experiencing LLE edema, RLE calf pain - Bilateral duplex US pending r/o DVT - Troponin 15.1, repeat 15.0 - no further repeat labs unless chest pain recurs - EKG atrial paced rhythm with prolonged AV conduction RBBB and T wave abnormality 82 bpm - CXR without acute findings - Echo 06/18/2022 EF 60 to 65%, mild MR, mild TR, pacemaker lead in RV no pericardial effusion --pending repeat - Obtain pacer interrogation - Lipid panel 08/03/2024 total 128, LDL 68, HDL 41, TG 94 -- previously on zetia and prior to this a statin but unable to tolerate given muscle cramping - Continue ASA daily - Cardiac monitoring #CKD stage III H/o CKD stage III, baseline Cr appears to be 1.2-1.6, eGFR 39.86. - Cr at admission 1.44 - BMP am - UA pending - Renally dose medications as appropriate #Elevated Alk phos Chronic findings, most recently addressed by PCP. H/o osteopenia. No abdominal pain. - Alk phos 145, otherwise LFTs WNL - Vit D pending am Calcium mildly elevated at admission (10.5) -- HOLD calcium carbonate x 1 day then can resume #Hypothyroidism- Pending TSH; levothyroxine - continue #Migraine- Follows with neurology; Atogepant, naratriptan prn, urogepant - continue #Constipation/IBS- Recent MR/Xr defecography at [facility] 09/21/2024, dx with rectal cystocele; Docusate, Lubiprostone - continue #RLS- Duloxetine, ropinirole, magnesium - continue #GERD- Famotidine, pantoprazole - continue #Inflammatory arthritis/RA- Hydroxychloroquine - continue Dispo: Admit, med/tele VTE Prophylaxis: Heparin This document was dictated utilizing [employer]. Please excuse any grammatical errors that may be secondary to use of this software. Admission and Anticipated Discharge Date Admission Date: 09/22/2024 History of Present Illness Chief Complaint: Chest pain Primary Care Provider: Michael King MD 68-year-old female PMHx HLD, HTN, GERD, CKD stage III, hypothyroidism, migraine with aura, and PLMD presenting for chest pain starting day of arrival. Patient states she was at her [facility] the morning of arrival when she started to experience a sharp left-sided chest pain upon leaving the building. States that it was right over her left breast, radiating under the breast, into her L neck and jaw, and she experienced significant SOB at that time. Rates the pain 9 out of 10 on the pain scale when it occurred, and had lasted 15 to 20 minutes in duration. She was able to drive herself home and upon sitting, she noticed that the pain subsided. Given the severity of the pain with the associated SOB, she decided to be evaluated. Came to the ED shortly after the pain had initially subsided, and states that she had a twinge of pain when she was being wheeled back to her room which lasted just seconds and then resolved again. Of note, patient states that she did use her pulse oximeter at home and states that her O2 sats were in the 70s, but she does also have a history of Raynaud's. At the present, no SOB or chest pain. Patient reports she had a visit at [facility] 09/21/2024 and diagnosed with rectal cystocele. Noted that she did have some bleeding per rectum following this diagnosis x 1, but has not experienced this since. Does occasionally have no control of bowel movements and will soil her clothes, which sometimes leads to recurrent UTIs. Also notes a 60 pound weight loss since being diagnosed with gastroparesis, and ongoing anorexia. [facility], patient is denying chest pain, shortness of breath, palpitations, abdominal pain, N/V/D/C, numbness/tingling, fever/chills, LUTS, URI symptoms, syncope, or weakness. No episodes of diaphoresis. Notes that she is no longer on a statin medication or Zetia because it causes her leg cramping. No recent episodes of gout. ED evaluation reveals no leukocytosis, H&H stable 12.6/39.2; PT/INR WNL, D-dimer 670; CMP creatinine 1.44, BUN 26, calcium 10.5, alkaline phosphatase 145; troponin 15.1, repeat 15.0; TSH WNL; CXR without acute findings; chest CTA negative for PE; EKG atrial paced rhythm with prolonged AV conduction, RBBB, T wave abnormality at 82 bpm.; Provided with nitroglycerin 0.4 mg SL and aspirin 324 mg p.o. in ED. Please see Dr. Crouch's attestation for adjustments/additions to treatment plan. Allergies Allergy/AdvReac Type Severity Reaction Status Date / Time rifampin AdvReac Severe cardiac Verified 09/15/24 08:54 arrhythmia + renal failure cephalexin [From Keflex] AdvReac Intermediate Nausea Verified 09/15/24 08:54 Home Medications Medication Instructions Recorded Confirmed Type B-complex with vitamin C 1 cap PO QAM 07/09/21 09/22/24 History magnesium 250 mg tablet 500 mg PO HS 10/10/21 09/22/24 History aspirin 81 mg tablet,delayed 81 mg PO QPM 03/11/22 09/22/24 History release lactobacillus comb no.10 20 20,000 mmu cells PO DAILY 03/11/22 09/22/24 History billion cell capsule (Probiotic) calcium carbonate (Calcium 600) 600 mg PO BID #60 tabs 06/23/22 09/22/24 Rx docusate sodium 100 mg capsule 200 mg PO PM 12/02/22 09/22/24 History (Dulcolax Stool Softener (docusate)) ferrous sulfate 325 mg (65 mg 325 mg PO QAM 01/20/23 09/22/24 History iron) tablet (Feosol) cyclosporine 0.05 % eye drops in a 1 drp ophthalmic (eye) Q OTHER DAY 03/11/23 09/22/24 History dropperette (Restasis) PRN Dry Eye(S) diclofenac sodium 1 % topical gel 2 g topical QID 07/06/23 09/22/24 History metoprolol succinate 50 mg 50 mg PO BID #180 tabs 08/09/23 09/22/24 Rx tablet,extended release 24 hr levothyroxine 100 mcg tablet 100 mcg PO QDL #90 tabs 10/11/23 09/22/24 Rx furosemide 40 mg tablet 40 mg PO QAM #90 tabs 01/24/24 09/22/24 Rx allopurinol 300 mg tablet 300 mg PO DAILY #90 tabs 02/23/24 09/22/24 Rx duloxetine 20 mg capsule,delayed 20 mg PO QAM #90 caps 02/23/24 09/22/24 Rx release pantoprazole 40 mg tablet,delayed 40 mg PO DAILY gerd #90 tabs 02/23/24 09/22/24 Rx release hydroxychloroquine 200 mg tablet 200 mg PO BID #180 tabs 02/28/24 09/22/24 Rx verapamil 240 mg 24 hr 240 mg PO QAM #90 caps 04/11/24 09/22/24 Rx capsule,extended release amoxicillin 500 mg tablet 2,000 mg (4 x 500 mg) PO ONCE #32 04/17/24 09/22/24 Rx tabs ezetimibe 10 mg tablet (Zetia) 10 mg PO DAILY #90 tabs 05/16/24 09/19/24 Rx potassium chloride 10 mEq 10 meq PO QAM #90 tabs 05/22/24 09/22/24 Rx tablet,extended release (Klor-Con) atogepant 60 mg tablet (Qulipta) 60 mg PO DAILY 90 days #90 tabs 05/24/2409/22 Rx famotidine 20 mg tablet 20 mg PO DAILY #90 tabs 06/21/24 09/22/24 Rx prednisone 5 mg tablet 1 mg PO QPM 08/11/24 09/19/24 History losartan 100 mg tablet 50 mg PO QAM 08/23/24 09/22/24 History spironolactone 25 mg tablet 25 mg PO QAM 08/23/24 09/22/24 History ubrogepant 100 mg tablet (Ubrelvy) 100 mg PO .COMPLEX PRN migraine 08/23/24 09/22/24 Rx headache 90 days #48 tabs naratriptan 2.5 mg tablet 2.5 mg PO ONCE PRN migraine 08/24/24 09/22/24 Rx headache 30 days #9 tabs lubiprostone 24 mcg capsule 24 mcg PO BID #180 caps 09/05/24 09/22/24 Rx (Amitiza) phenazopyridine 200 mg tablet 200 mg PO Q8H PRN pain #10 tabs 09/11/24 09/22/24 Rx (Pyridium) ropinirole 1 mg tablet 1 - 2 mg (1 - 2 x 1 mg) PO 09/15/24 09/22/24 Rx .COMPLEX PRN restless leg(s) #60 tabs Past Med/Surg History Problem List (Updated 09/22/24 @ 21:01 by Lucho Shepherd MD) Chest pain (Acute) Elevated alkaline phosphatase level CKD (chronic kidney disease) Bladder spasm (Acute) Acute UTI (urinary tract infection) (Acute) Chest pain syndrome History of vitamin D deficiency Fecal incontinence Migraine with aura Osteoarthritis of left shoulder Cervical radiculopathy at C7 Cervical spinal stenosis S/P arthroscopy of shoulder Operation Date: 08/12/23 13:35 Actual Procedures p Left Shoulder Arthroscopy, extensive debridement, subacromial Decompression, Distal Clavicle Excision, Chondroplasty of Left Humeral Head, Biceps Tenodesis(Left) - Favian Blevins MD Osteoarthritis Osteoarthritis of left acromioclavicular joint SLAP lesion of left shoulder Impingement of left shoulder Myofascial pain syndrome, cervical Neuralgia Gout Granuloma annulare Chronic rhinitis Complex sleep apnea syndrome Multiple pulmonary nodules Morbid obesity Taking Farxiga for weight loss (no diabetes/prediabetes hx) Upper airway cough syndrome Chronic cough Allergic rhinitis with postnasal drip Exertional shortness of breath Iron deficiency anemia Urinary incontinence Chest pain (Acute) JACOB (obstructive sleep apnea) Constipation Rheumatoid arthritis Paroxysmal SVT (supraventricular tachycardia) (Acute) Leukocytosis (Acute) Chronic venous insufficiency Lumbar radiculopathy Non-restorative sleep PLMD (periodic limb movement disorder) Excessive daytime sleepiness Osteopenia Nephrolithiasis Inflammatory arthritis Hyperlipidemia Elevated antinuclear antibody (BRIGHT) level Spinal stenosis of lumbar region Fatigue Essential tremor Bilateral hands - mild/intermittent Memory deficits Idiopathic peripheral neuropathy Left renal artery stenosis 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 Hypothyroidism Spondylolisthesis at L4-L5 level Generalized pain Restless leg syndrome Seronegative arthritis Presence of cardiac pacemaker RBBB (right bundle branch block) HTN (hypertension) GERD (gastroesophageal reflux disease) CKD (chronic kidney disease), stage III Erosive osteoarthritis (Chronic) Medical History Occlusion of celiac artery History of nephrolithiasis Multiple lung nodules Migraine Left renal artery stenosis Iron deficiency anemia Hypothyroidism Hyperlipidemia HTN (hypertension) History of vitamin D deficiency Gout Exertional shortness of breath Essential tremor Bilateral hands - mild/intermittent Chronic kidney disease (CKD), stage III (moderate) Chronic cough Lumbar stenosis Cervical spinal stenosis Allergic rhinitis Urinary incontinence Superior mesenteric artery stenosis Seronegative arthritis History of right bundle branch block Hx of supraventricular tachycardia s/p pacemaker placement Osteoarthritis Osteopenia Chronic venous insufficiency Hx of leukocytosis Chest pain syndrome 05/2024 >>f/U w/ Dr sliva was told "nothing to be concerned about" Trigeminal neuralgia Pre-diabetes Right shoulder tendinitis Muscle spasm Random episodes, possibly r/t RLS but no definitive etiology found per patient Pre-syncope Hx pre-syncopal/syncope episodes r/t autonomic disorder vs vasovagal; improved recently with verapamil/metoprolol dosing adjustments On home O2 2 lpm PRN exertion; "rare" use Hx of orthostatic hypotension Autonomic neuropathy Idiopathic peripheral neuropathy History of recent steroid use [facility] rheumatology visit 07/08/23, "Gout.. Discussed that patient was supposed to taper down on her prednisone. Reduce prednisone to 10 mg for 1 week, then reduce to 5 mg" > patient now back to her baseline of 5mg daily Hx of sepsis 08/2021 ([place]) r/t kidney infection Hx MRSA infection ~2016 in the finger, dx at [facility]. Osteomyelitis- "had surgery to remove" Polymyalgia rheumatica states most recent testing came back negative follows w/ Dr Gomez Chronic daily prednisone- currently at maintenance dose of 2 mg daily- being weaned off Vascular disease Renal artery stenosis, celiac/SMA stenosis- no intervention felt necessary per 02/05/21 vascular note Per patient- seen at [facility] afterwards and felt report was read incorrect and patient has no significant stenosis Sleep apnea Non-compliant with CPAP GERD (gastroesophageal reflux disease) Restless legs syndrome Rheumatoid arthritis Questionable, serum negative Pacemaker Implanted 2018/recurrent syncope secondary to symptomatic bradycardia- last checked ~fall [address] Ricardo Villanueva History of COVID-19 07/2020- no current problems Spondylolysis Hypertension Surgical History Status post arthroscopy of left shoulder (08/12/23) Status post right knee replacement 01/16/22: LMA#5 + PNB. Status post right knee replacement 01/16/22: LMA#5 + PNB Status post placement of other cardiac pacemaker History of lumbar spinal fusion L4-5 fusion/decompression (03/13/22): Grade view 1, MAC#3, ETT 7.0 at [facility] S/P cardiac pacemaker procedure Implanted 2018 ([facility]) History of temporal artery biopsy Interdigital neuroma of foot Hx foot injections (done under anesthesia) History of hand surgery right finger left hand- I&D History of breast biopsy aspiration of cyst from left breast benign History of total abdominal hysterectomy and bilateral salpingo-oophorectomy History of dilatation and curettage History of bilateral tubal ligation History of colonoscopy History of esophagogastroduodenoscopy (EGD) History of cholecystectomy History of tooth extraction Family History Grandmother (Maternal) Family history of diabetes mellitus Father Myocardial infarction Lung cancer Hypertension Mother Acute myocardial infarction Hypertension Other No family history of adverse response to anesthesia Denies family history of Ovarian cancer Breast cancer Colorectal cancer Social History Smoking Status: Never smoker Second Hand Exposure: Yes (parents smoked); Do You Dip or Chew Tobacco: No; Hx Alcohol Use: No Hx Substance Use: No Preferred Language: Indonesian Communication Ability: Effective Visual Impairment: No Limitations Party Plan Sales Agent Required: No Beliefs That Will Affect Care: None marital status: Current Living Situation: Spouse Current Living Situation Comment: at home current occupational status: employed and retired 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, 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 How many Children do You have: 2 Feels Safe at Home: Yes Childhood Exposure to Second-Hand Smoke: Yes Diet: other Diet Comment: low dairy caffeine: Yes during the past year weight has: increased > 10 lbs Dental Care, Regularly: Yes Physical Activity Frequency: Daily Seatbelt Use: always Assistive Devices: Cane, Glasses and Other Review of Systems Review of Systems: All systems reviewed & are unremarkable except as noted in Subjective Physical Exam Physical Exam: General: No acute distress Skin: Warm and dry; varicose veins BLE; Hands white coloration, findings consistent with Raynaud Head: Normocephalic, atraumatic Eyes: PERRL, conjunctivae clear, sclera non-icteric; wearing glasses ENT: External ear and ear canal without swelling; nose atraumatic; good dentition, tongue normal appearance, pharynx normal Neck: Supple, no LAD Cardio: RRR, no M/G/R, S1 and S2 normal Resp: No respiratory distress, Lungs CTA in all lobes bilaterally, no wheezes, rales, or rhonchi Abdomen: Soft, symmetric, nontender; No masses or hepatosplenomegaly; Bowel sounds normoactive MSK: LLE with mild calf size discrepancy with L >R, no erythema; RLE with mildly edematous R knee (patient reports recent fracture); no deformities; pulses palpable and equal Neuro: Awake, alert; Sensation intact bilaterally; CN grossly intact Psych: Appropriate mood and affect; good judgement and insight. Results & Data Results & Data Vital Signs (Past 12 Hours) Vital Signs Temp Pulse Resp BP Pulse Ox O2 Del Method 09/22/24 18:33 60 17 125/60 94 09/22/24 18:27 62 16 09/22/24 18:21 60 21 94 09/22/24 17:49 Room Air 09/22/24 17:49 Room Air 09/22/24 17:33 60 15 94 09/22/24 17:30 110/74 09/22/24 17:12 62 14 97 09/22/24 17:00 118/62 09/22/24 17:00 118/62 09/22/24 16:51 78 09/22/24 16:50 146/85 H 09/22/24 16:24 36.7 C 82 16 138/84 100 Room Air Laboratory Results 09/22/24 16:40 WBC 7.26 RBC 4.22 Hgb 12.6 Hct 39.2 MCV 92.9 MCH 29.9 MCHC 32.1 RDW Std Deviation 49.1 H RDW Coeff of Rowdy 14.6 H Plt Count 190 MPV 12.1 Immature Gran % (Auto) 1.8 Neut % (Auto) 65.7 Lymph % (Auto) 23.7 Grand % (Auto) 8.0 Eos % (Auto) 0.0 Baso % (Auto) 0.8 Neut # (Auto) 4.77 Lymph # (Auto) 1.72 Grand # (Auto) 0.58 Eos # (Auto) 0.00 Baso # (Auto) 0.06 Immature Gran # (Auto) 0.13 PT 10.2 INR 0.9 APTT 27 PTT Ratio 1.0 D-Dimer 670 H* Sodium 140 Potassium 4.2 Chloride 106 Carbon Dioxide 27 Anion Gap 7 BUN 26 H Creatinine 1.44 H Est Cr Clr Drug Dosing 41.8 eGFR 39.86 BUN/Creatinine Ratio 18.1 Glucose 88 Calcium 10.5 H Total Bilirubin 0.6 AST 27 ALT 29 Alkaline Phosphatase 145 H Troponin I High Sens 15.1 H Total Protein 7.2 Albumin 4.5 Globulin 2.7 Albumin/Globulin Ratio 1.7 Diagnostic Findings Chest X-Ray 09/22/24 16:35 Clinical History: Chest pain Technique: A frontal view of the chest was obtained Comparison is made to the prior examination dated 03/11/2023 Findings: There are no confluent pulmonary infiltrates. The heart size is within normal limits. No pleural effusion or pneumothorax is seen. There is no definite pulmonary nodule. No fracture is noted. There is a left chest wall pacemaker device. There is contrast within the visualized: Impression: No active disease Electronically signed by Nolberto Stark 09-22-2024 5:18 PM Chest CTA 09/22/24 17:40 CT pulmonary angiogram with IV contrast History: Chest pain COMPARISON: 11/29/2022 TECHNIQUE: CT angiography of the chest was performed without IV contrast followed by IV contrast, including 3D post processing CTA image reconstruction. Dose reduction techniques were achieved by using automatic exposure control and/or adjustment of mA and/or kV according to patient size and/or use of iterative reconstruction technique. FINDINGS: Diagnostic quality: Adequate There is no evidence for pulmonary embolism. The heart is not enlarged. Mild coronary calcification. Left chest wall dual-lead AICD. There is no pericardial effusion. There are no abnormally enlarged hilar or mediastinal lymph nodes. The central tracheobronchial tree is clear. The lungs are clear. There is no pleural effusion. Limited visualized upper abdomen. No destructive osseous changes are seen. IMPRESSION: No evidence for pulmonary embolism. Electronically signed by Michael Daley 09-22-2024 6:08 PM Medications Administered Nitroglycerin 0.4 mg SL Aspirin 324 mg p.o. ECG Additional Comments: Atrial paced rhythm with prolonged AV conduction, RBBB, T wave abnormality 82 bpm, AZ 282, QRS 136, QT/QTc 400/467, PRT -14/66/-10 Code Status & VTE Plan Code Status Full Supervising Physician Co-Signing Physician Notes Patient seen and examined, chart reviewed, case discussed with Dang Dan PA-C and I agree with the assessment and plan as above except as otherwise noted Labs and images reviewed 15-20min of dyspnea, chest pain. Resolved with rest. Occured at exertion. First episode of chest pain. No prior hx of exertional chest pain or CP at rest. CP free on admission. D-dimer was positive. CT without evidence of PE or other acute abnormality. Received full dose aspirin. Initial troponin minimally elevated 15.1, repeat pending. If elevated, will trend. Does have some new left lower extremity swelling and right calf pain. Bilateral Dopplers are pend ing. Echo pending. Nitro as needed. If recurrent chest pain/uptrending troponin heparinize. Is a history of pacer placement for sinus bradycardia with syncope which has not recurred in the last week. Interrogation is pending. Statin intolerant due to cramps, was using Zetia and statin together. Can trial statin monotherapy with coq.10 as outpatient to see if she is able to tolerate this without myalgias. Seen while in US suite. CP remains improved. troponin repeat equivocal, minimal rise. No concerns at time of assessment. Agree with above PG Care Time/CCT Total # of Minutes Spent Total Time Spent with Patient: Total time spent is greater than 50% in coordination of care (as documented) at patient's floor/unit and/or counseling patient: Coding Level of Care Code 77648 INT INP/OBS CARE 3/75MIN Diagnoses Chest pain R07.9 Chest pain type: unspecified CKD (chronic kidney disease) N18.9 Elevated alkaline phosphatase level R74.8 (1) Chest pain Chest pain type: unspecified Qualified Code(s): R07.9 - Chest pain, unspecified
--- NOTE | 2024-09-22 20:55 | Emergency Department Note ---
History of Present Illness General Chief Complaint: Chest Pain Stated Complaint: CHEST PAIN, SOB Time Seen by Provider: 09/22/24 16:39 History of Present Illness Provider Complaint: chest pain Time: 14:30 Duration: intermittent Onset: during rest Pain Location: substernal Pain Radiation: neck and jaw/teeth Severity: moderate Maximum Pain Intensity: 6 Current Pain Intensity: 5 Quality: + sharp Relieved By: + nothing Exacerbated By: + nothing Context: no recent illness, no recent surgery, no recent immobilization, no recent travel, no trauma/injury, no new medications or no history of DVT/PE Associated symptoms: + dyspnea; no nausea, no vomiting, no palpitations, no fever or no cough Treatments prior to arrival: none Home Medications Medication Instructions Recorded Confirmed Type B-complex with vitamin C 1 cap PO QAM 07/09/21 09/22/24 History magnesium 250 mg tablet 500 mg PO HS 10/10/21 09/22/24 History aspirin 81 mg tablet,delayed 81 mg PO QPM 03/11/22 09/22/24 History release lactobacillus comb no.10 20 20,000 mmu cells PO DAILY 03/11/22 09/22/24 History billion cell capsule (Probiotic) calcium carbonate (Calcium 600) 600 mg PO BID #60 tabs 06/23/22 09/22/24 Rx docusate sodium 100 mg capsule 200 mg PO PM 12/02/22 09/22/24 History (Dulcolax Stool Softener (docusate)) ferrous sulfate 325 mg (65 mg 325 mg PO QAM 01/20/23 09/22/24 History iron) tablet (Feosol) cyclosporine 0.05 % eye drops in a 1 drp ophthalmic (eye) Q OTHER DAY 03/11/23 09/22/24 History dropperette (Restasis) PRN Dry Eye(S) diclofenac sodium 1 % topical gel 2 g topical QID 07/06/23 09/22/24 History metoprolol succinate 50 mg 50 mg PO BID #180 tabs 08/09/23 09/22/24 Rx tablet,extended release 24 hr levothyroxine 100 mcg tablet 100 mcg PO QDL #90 tabs 10/11/23 09/22/24 Rx furosemide 40 mg tablet 40 mg PO QAM #90 tabs 01/24/24 09/22/24 Rx allopurinol 300 mg tablet 300 mg PO DAILY #90 tabs 02/23/24 09/22/24 Rx duloxetine 20 mg capsule,delayed 20 mg PO QAM #90 caps 02/23/24 09/22/24 Rx release pantoprazole 40 mg tablet,delayed 40 mg PO DAILY gerd #90 tabs 02/23/24 09/22/24 Rx release hydroxychloroquine 200 mg tablet 200 mg PO BID #180 tabs 02/28/24 09/22/24 Rx verapamil 240 mg 24 hr 240 mg PO QAM #90 caps 04/11/24 09/22/24 Rx capsule,extended release amoxicillin 500 mg tablet 2,000 mg (4 x 500 mg) PO ONCE #32 04/17/24 09/22/24 Rx tabs ezetimibe 10 mg tablet (Zetia) 10 mg PO DAILY #90 tabs 05/16/24 09/19/24 Rx potassium chloride 10 mEq 10 meq PO QAM #90 tabs 05/22/24 09/22/24 Rx tablet,extended release (Klor-Con) atogepant 60 mg tablet (Qulipta) 60 mg PO DAILY 90 days #90 tabs 05/24/24 09/22/24 Rx famotidine 20 mg tablet 20 mg PO DAILY #90 tabs 06/21/24 09/22/24 Rx prednisone 5 mg tablet 1 mg PO QPM 08/11/24 09/19/24 History losartan 100 mg tablet 50 mg PO QAM 08/23/24 09/22/24 History spironolactone 25 mg tablet 25 mg PO QAM 08/23/24 09/22/24 History ubrogepant 100 mg tablet (Ubrelvy) 100 mg PO .COMPLEX PRN migraine 08/23/24 09/22/24 Rx headache 90 days #48 tabs naratriptan 2.5 mg tablet 2.5 mg PO ONCE PRN migraine 08/24/24 09/22/24 Rx headache 30 days #9 tabs lubiprostone 24 mcg capsule 24 mcg PO BID #180 caps 09/05/24 09/22/24 Rx (Amitiza) phenazopyridine 200 mg tablet 200 mg PO Q8H PRN pain #10 tabs 09/11/24 09/22/24 Rx (Pyridium) ropinirole 1 mg tablet 1 - 2 mg (1 - 2 x 1 mg) PO 09/15/24 09/22/24 Rx .COMPLEX PRN restless leg(s) #60 tabs Allergies Allergy/AdvReac Type Severity Reaction Status Date / Time rifampin AdvReac Severe cardiac Verified 09/15/24 08:54 arrhythmia + renal failure cephalexin [From Keflex] AdvReac Intermediate Nausea Verified 09/15/24 08:54 Past Med/Surg History Problem List (Updated 09/22/24 @ 21:01 by Lucho Shepherd MD) Chest pain (Acute) Elevated alkaline phosphatase level CKD (chronic kidney disease) Bladder spasm (Acute) Acute UTI (urinary tract infection) (Acute) Chest pain syndrome History of vitamin D deficiency Fecal incontinence Migraine with aura Osteoarthritis of left shoulder Cervical radiculopathy at C7 Cervical spinal stenosis S/P arthroscopy of shoulder Operation Date: 08/12/23 13:35 Actual Procedures p Left Shoulder Arthroscopy, extensive debridement, subacromial Decompression, Distal Clavicle Excision, Chondroplasty of Left Humeral Head, Biceps Tenodesis(Left) - Favian Blevins MD Osteoarthritis Osteoarthritis of left acromioclavicular joint SLAP lesion of left shoulder Impingement of left shoulder Myofascial pain syndrome, cervical Neuralgia Gout Granuloma annulare Chronic rhinitis Complex sleep apnea syndrome Multiple pulmonary nodules Morbid obesity Taking Farxiga for weight loss (no diabetes/prediabetes hx) Upper airway cough syndrome Chronic cough Allergic rhinitis with postnasal drip Exertional shortness of breath Iron deficiency anemia Urinary incontinence Chest pain (Acute) JACOB (obstructive sleep apnea) Constipation Rheumatoid arthritis Paroxysmal SVT (supraventricular tachycardia) (Acute) Leukocytosis (Acute) Chronic venous insufficiency Lumbar radiculopathy Non-restorative sleep PLMD (periodic limb movement disorder) Excessive daytime sleepiness Osteopenia Nephrolithiasis Inflammatory arthritis Hyperlipidemia Elevated antinuclear antibody (BRIGHT) level Spinal stenosis of lumbar region Fatigue Essential tremor Bilateral hands - mild/intermittent Memory deficits Idiopathic peripheral neuropathy Left renal artery stenosis 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 Hypothyroidism Spondylolisthesis at L4-L5 level Generalized pain Restless leg syndrome Seronegative arthritis Presence of cardiac pacemaker RBBB (right bundle branch block) HTN (hypertension) GERD (gastroesophageal reflux disease) CKD (chronic kidney disease), stage III Erosive osteoarthritis (Chronic) Medical History Occlusion of celiac artery History of nephrolithiasis Multiple lung nodules Migraine Left renal artery stenosis Iron deficiency anemia Hypothyroidism Hyperlipidemia HTN (hypertension) History of vitamin D deficiency Gout Exertional shortness of breath Essential tremor Bilateral hands - mild/intermittent Chronic kidney disease (CKD), stage III (moderate) Chronic cough Lumbar stenosis Cervical spinal stenosis Allergic rhinitis Urinary incontinence Superior mesenteric artery stenosis Seronegative arthritis History of right bundle branch block Hx of supraventricular tachycardia s/p pacemaker placement Osteoarthritis Osteopenia Chronic venous insufficiency Hx of leukocytosis Chest pain syndrome 05/2024 >>f/U w/ Dr silva was told "nothing to be concerned about" Trigeminal neuralgia Pre-diabetes Right shoulder tendinitis Muscle spasm Random episodes, possibly r/t RLS but no definitive etiology found per patient Pre-syncope Hx pre-syncopal/syncope episodes r/t autonomic disorder vs vasovagal; improved recently with verapamil/metoprolol dosing adjustments On home O2 2 lpm PRN exertion; "rare" use Hx of orthostatic hypotension Autonomic neuropathy Idiopathic peripheral neuropathy History of recent steroid use [facility] [place] rheumatology visit 07/08/23, "Gout.. Discussed that patient was supposed to taper down on her prednisone. Reduce prednisone to 10 mg for 1 week, then reduce to 5 mg" > patient now back to her baseline of 5mg daily Hx of sepsis 08/2021 ([place]) r/t kidney infection Hx MRSA infection ~2016 in the finger, dx at [facility]. Osteomyelitis- "had surgery to remove" Polymyalgia rheumatica states most recent testing came back negative follows w/ Dr Gomez Chronic daily prednisone- currently at maintenance dose of 2 mg daily- being weaned off Vascular disease Renal artery stenosis, celiac/SMA stenosis- no intervention felt necessary per 02/05/21 vascular note Per patient- seen at [facility] [place] [facility] [place] and felt report was read incorrect and patient has no significant stenosis Sleep apnea Non-compliant with CPAP GERD (gastroesophageal reflux disease) Restless legs syndrome Rheumatoid arthritis Questionable, serum negative Pacemaker Implanted 2018/recurrent syncope secondary to symptomatic bradycardia- last checked ~fall [address] Silva [place] History of COVID-19 07/2020- no current problems Spondylolysis Hypertension Surgical History Status post arthroscopy of left shoulder (08/12/23) Status post right knee replacement 01/16/22: LMA#5 + PNB. Status post right knee replacement 01/16/22: LMA#5 + PNB Status post placement of other cardiac pacemaker History of lumbar spinal fusion L4-5 fusion/decompression (03/13/22): Grade view 1, MAC#3, ETT 7.0 at [facility] S/P cardiac pacemaker procedure Implanted 2018 ([facility]) History of temporal artery biopsy Interdigital neuroma of foot Hx foot injections (done under anesthesia) History of hand surgery right finger left hand- I&D History of breast biopsy aspiration of cyst from left breast benign History of total abdominal hysterectomy and bilateral salpingo-oophorectomy History of dilatation and curettage History of bilateral tubal ligation History of colonoscopy History of esophagogastroduodenoscopy (EGD) History of cholecystectomy History of tooth extraction Family History Grandmother (Maternal) Family history of diabetes mellitus Father Myocardial infarction Lung cancer Hypertension Mother Acute myocardial infarction Hypertension Other No family history of adverse response to anesthesia Denies family history of Ovarian cancer Breast cancer Colorectal cancer Social History Smoking Status: Never smoker Second Hand Exposure: Yes (parents smoked); Do You Dip or Chew Tobacco: No; Hx Alcohol Use: No Hx Substance Use: No Preferred Language: [place] Communication Ability: Effective Visual Impairment: No Limitations 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 Required: No Beliefs That Will Affect Care: None marital status: Current Living Situation: Spouse Current Living Situation Comment: at home current occupational status: employed and retired 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, 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 How many Children do You have: 2 Feels Safe at Home: Yes Childhood Exposure to Second-Hand Smoke: Yes Diet: other Diet Comment: low dairy caffeine: Yes during the past year weight has: increased > 10 lbs Dental Care, Regularly: Yes Physical Activity Frequency: Daily Seatbelt Use: always Assistive Devices: Cane, Glasses and Other Physical Exam Vital Signs Vital Signs - 24 hr 09/22/24 16:24 09/22/24 16:50 09/22/24 16:51 Temperature 36.7 C Temperature Source Skin Pulse Rate 82 78 Pulse Rate from SpO2 Sensor Respiratory Rate 16 Respiratory Effort / Characteristics Non-Labored Spontaneous Respiratory Depth Normal Respiratory Pattern Regular Blood Pressure 138/84 146/85 H Blood Pressure Mean 102 104 Pulse Oximetry 100 Oxygen Delivery Method Room Air Sepsis Recent Fever Within 48 Hours No Sepsis New/Unexplained Change in Mental Status N/A Sepsis Action Taken by Nursing No Action Required 09/22/24 17:00 09/22/24 17:00 09/22/24 17:12 Temperature Temperature Source Pulse Rate 62 Pulse Rate from SpO2 Sensor 62 Respiratory Rate 14 Respiratory Effort / Characteristics Respiratory Depth Respiratory Pattern Blood Pressure 118/62 118/62 Blood Pressure Mean 84 84 Pulse Oximetry 97 Oxygen Delivery Method Sepsis Recent Fever Within 48 Hours Sepsis New/Unexplained Change in Mental Status Sepsis Action Taken by Nursing 09/22/24 17:30 09/22/24 17:33 09/22/24 17:49 Temperature Temperature Source Pulse Rate 60 Pulse Rate from SpO2 Sensor Respiratory Rate 15 Respiratory Effort / Characteristics Respiratory Depth Respiratory Pattern Blood Pressure 110/74 Blood Pressure Mean 80 Pulse Oximetry 94 Oxygen Delivery Method Room Air Sepsis Recent Fever Within 48 Hours Sepsis New/Unexplained Change in Mental Status Sepsis Action Taken by Nursing 09/22/24 17:49 09/22/24 18:21 09/22/24 18:27 Temperature Temperature Source Pulse Rate 60 62 Pulse Rate from SpO2 Sensor Respiratory Rate 21 16 Respiratory Effort / Characteristics Respiratory Depth Respiratory Pattern Blood Pressure Blood Pressure Mean Pulse Oximetry 94 Oxygen Delivery Method Room Air Sepsis Recent Fever Within 48 Hours Sepsis New/Unexplained Change in Mental Status Sepsis Action Taken by Nursing 09/22/24 18:33 09/22/24 18:51 09/22/24 19:00 Temperature Temperature Source Pulse Rate 60 66 Pulse Rate from SpO2 Sensor Respiratory Rate 17 19 Respiratory Effort / Characteristics Respiratory Depth Respiratory Pattern Blood Pressure 125/60 122/51 L Blood Pressure Mean 81 69 Pulse Oximetry 94 Oxygen Delivery Method Sepsis Recent Fever Within 48 Hours Sepsis New/Unexplained Change in Mental Status Sepsis Action Taken by Nursing 09/22/24 19:15 09/22/24 19:31 09/22/24 19:33 Temperature Temperature Source Pulse Rate 60 62 Pulse Rate from SpO2 Sensor 75 Respiratory Rate 17 15 Respiratory Effort / Characteristics Respiratory Depth Respiratory Pattern Blood Pressure 116/50 L Blood Pressure Mean 66 Pulse Oximetry 91 92 Oxygen Delivery Method Sepsis Recent Fever Within 48 Hours Sepsis New/Unexplained Change in Mental Status Sepsis Action Taken by Nursing Physical Exam GENERAL: oriented to person, place, and time. appears well-developed and well- nourished. HENT: Exam performed. - Head: Normocephalic and atraumatic. EYES: Conjunctivae and EOM are normal. Right eye exhibits no discharge. Left eye exhibits no discharge. No scleral icterus. NECK: Normal range of motion. Neck supple. No JVD present. CV: Normal rate, regular rhythm, normal heart sounds and intact distal pulses. There is no peripheral edema. Palpable radial pulses bue. PULM/CHEST: Effort normal and breath sounds normal. No respiratory distress. No stridor. no wheezes. no rales. ABD: The abdomen is soft. There is no tenderness. NEURO: Motor and sensation grossly intact. SKIN: Skin is warm and dry. He is not diaphoretic. PSYCH: normal mood and affect. Behavior is normal. Judgment and thought content normal. Course Course 1639: The patient was evaluated in room B4. A complete history and physical exam was performed Cardiac monitoring: An order was placed for continuous cardiac monitoring. The monitor shows a rate of 80 with sinus rhythm interpreted by me 1841: Vital signs stable. Labs show mildly elevated high-sensitivity troponin. D-dimer is elevated. CT of the chest negative for PE. Patient reports no chest pain at this time after aspirin. Patient will be admitted for chest pain rule out ACS. Administered Medications Discontinued Medications Aspirin (Aspirin 81 Mg Chew) 324 mg PO NOW STA Stop: 09/22/24 16:47 Last Admin: 09/22/24 17:33 Dose: 324 mg Documented By: JEANNE Ioversol (Optiray 320 125ml) 119 ml IV ONCE ONE Stop: 09/22/24 18:00 Last Admin: 09/22/24 18:00 Dose: 119 ml Documented By: TISHA Medical Decision Making Laboratory Data Attestation: I reviewed the patient's lab results. 09/22/24 16:40 09/22/24 16:40 Labs: Lab Results 09/22/24 09/22/24 Range/Units 16:40 20:19 WBC 7.26 (4.8-10.8) K/ul RBC 4.22 (4.20-5.40) M/uL Hgb 12.6 (12.0-16.0) g/dl Hct 39.2 (37.0-47.0) % MCV 92.9 (80.0-100.0) fL MCH 29.9 (25.0-34.0) pg MCHC 32.1 (32.0-36.0) g/dL RDW Std Deviation 49.1 H (36.4-46.3) fL RDW Coeff of Rowdy 14.6 H (11.5-14.5) % Plt Count 190 (130-400) K/uL MPV 12.1 (9.4-12.4) fL Immature Gran % (Auto) 1.8 % Neut % (Auto) 65.7 % Lymph % (Auto) 23.7 % [place] % (Auto) 8.0 % Eos % (Auto) 0.0 % Baso % (Auto) 0.8 % Neut # (Auto) 4.77 (1.40-6.50) K/uL Lymph # (Auto) 1.72 (1.20-3.40) K/uL [place] # (Auto) 0.58 (0.11-0.59) K/uL Eos # (Auto) 0.00 (0.00-0.50) K/uL Baso # (Auto) 0.06 (0.00-0.20) K/uL Immature Gran # (Auto) 0.13 (0.01-0.20) K/uL PT 10.2 (9.0-12.0) Seconds INR 0.9 (0.9-1.1) APTT 27 (21-31) Seconds PTT Ratio 1.0 D-Dimer 670 H* (0-500) ug/L FEU Sodium 140 (136-145) mmol/L Potassium 4.2 (3.5-5.1) mmol/L Chloride 106 (98-107) mmol/L Carbon Dioxide 27 (21-32) mmol/L Anion Gap 7 (3-11) BUN 26 H (6-23) mg/dl Creatinine 1.44 H (0.6-1.2) mg/dl Est Cr Clr Drug Dosing 41.8 ml/min eGFR 39.86 BUN/Creatinine Ratio 18.1 (10-20) Glucose 88 (70-99(Fasting)) mg/dl Calcium 10.5 H (8.6-10.3) mg/dl Magnesium 2.0 (1.7-2.4) mg/dl Total Bilirubin 0.6 (0.2-1.0) mg/dl AST 27 (13-39) U/L ALT 29 (7-52) U/L Alkaline Phosphatase 145 H (34-104) U/L Troponin I High Sens 15.1 H (0-14) pg/ml Total Protein 7.2 (6.0-8.3) gm/dl Albumin 4.5 (3.4-5.0) gm/dl Globulin 2.7 (2.5-4.0) gm/dl Albumin/Globulin Ratio 1.7 (0.9-2) Imaging Data Chest x-ray: Attestation: I personally reviewed and interpreted this imaging study as follows: My impression: Chest x-ray negative. Airway clear. No pneumothorax. No consolidation. No cardiomegaly or cephalization.. No free air under the diaphragm. No fractures of the skeletal structures. Radiologist's impression: Clinical History: Chest pain Technique: A frontal view of the chest was obtained Comparison is made to the prior examination dated 03/11/2023 Findings: There are no confluent pulmonary infiltrates. The heart size is within normal limits. No pleural effusion or pneumothorax is seen. There is no definite pulmonary nodule. No fracture is noted. There is a left chest wall pacemaker device. There is contrast within the visualized: Impression: No active disease Electronically signed by Nolberto Stark 09-22-2024 5:18 PM Dictated: 09/22/24 1647 Transcribed: CT scan - chest: Radiologist's impression: CT pulmonary angiogram with IV contrast History: Chest pain COMPARISON: 11/29/2022 TECHNIQUE: CT angiography of the chest was performed without IV contrast followed by IV contrast, including 3D post processing CTA image reconstruction. Dose reduction techniques were achieved by using automatic exposure control and/or adjustment of mA and/or kV according to patient size and/or use of iterative reconstruction technique. FINDINGS: Diagnostic quality: Adequate There is no evidence for pulmonary embolism. The heart is not enlarged. Mild coronary calcification. Left chest wall dual-lead AICD. There is no pericardial effusion. There are no abnormally enlarged hilar or mediastinal lymph nodes. The central tracheobronchial tree is clear. The lungs are clear. There is no pleural effusion. Limited visualized upper abdomen. No destructive osseous changes are seen. IMPRESSION: No evidence for pulmonary embolism. Electronically signed by Michael Daley 09-22-2024 6:08 PM Dictated: 09/22/24 [id number] Transcribed: ECG Data Attestation: I personally reviewed and interpreted this ECG as follows: Additional Comments: Paced rhythm with a rate of 82. [place] 282 QRS [address] elevation or ST depression. [facility] Narrative 1639: The patient was evaluated in room B4. A complete history and physical exam was performed Cardiac monitoring: An order was placed for continuous cardiac monitoring. The monitor shows a rate of 80 with sinus rhythm interpreted by me 1841: Vital signs stable. Labs show mildly elevated high-sensitivity troponin. D-dimer is elevated. CT of the chest negative for PE. Patient reports no chest pain at this time after aspirin. Patient will be admitted for chest pain rule out ACS. Impression & Plan Chest pain Discharge Plan Visit Data Chief Complaint: Chest Pain Stated Complaint: CHEST PAIN, SOB ED Provider: Lucho Shepherd Discharge Problem: Chest pain Patient Disposition: Admitted As Inpatient Condition: Fair Forms Stand Alone Forms: [facility] Prescriptions Prescriptions: No Action diclofenac sodium 1 % gel 2 g topical QID Rx Instructions: apply to single elbow, wrist or hand; for hand includes palm/fingers/back of hand metoprolol succinate 50 mg tablet extended release 24 hr 50 mg PO BID Qty: 180 3RF levothyroxine 100 mcg tablet 100 mcg PO QDL Qty: 90 3RF furosemide 40 mg tablet 40 mg PO QAM Qty: 90 3RF hydroxychloroquine 200 mg tablet 200 mg PO BID Qty: 180 0RF verapamil 240 mg capsule,ext rel. pellets 24 hr 240 mg PO QAM Qty: 90 3RF amoxicillin 500 mg tablet 2,000 mg PO ONCE Qty: 32 3RF Rx Instructions: 4 tabs 1 hour prior to procedure potassium chloride [Klor-Con 10] 10 mEq tablet extended release 10 meq PO QAM Qty: 90 3RF Qulipta 60 mg tablet 60 mg PO DAILY 90 Days Qty: 90 2RF famotidine 20 mg tablet 20 mg PO DAILY Qty: 90 3RF naratriptan 2.5 mg tablet 2.5 mg PO ONCE PRN (Reason: migraine headache) 30 Days Qty: 9 4RF lubiprostone [Amitiza] 24 mcg capsule 24 mcg PO BID Qty: 180 3RF ferrous sulfate [Feosol] 325 mg (65 mg iron) tablet 325 mg PO QAM calcium carbonate [Calcium 600] 600 mg calcium (1,500 mg) tablet 600 mg PO BID Qty: 60 0RF ezetimibe [Zetia] 10 mg tablet 10 mg PO DAILY Qty: 90 3RF Hold Instructions: muscle pain-hold from ED recs Rx Instructions: HOLD allopurinol 300 mg tablet 300 mg PO DAILY MDD qam Qty: 90 3RF duloxetine 20 mg capsule,delayed release(DR/EC) 20 mg PO QAM Qty: 90 3RF pantoprazole 40 mg tablet,delayed release (DR/EC) 40 mg PO DAILY Qty: 90 3RF prednisone 5 mg tablet 1 mg PO QPM losartan 100 mg tablet 50 mg PO QAM spironolactone 25 mg tablet 25 mg PO QAM Hold Instructions: CKD Patient Comments: pt reported she resumed Ubrelvy 100 mg tablet 100 mg PO .COMPLEX MDD 200 mg PRN (Reason: migraine headache) 90 Days Qty: 48 3RF Rx Instructions: 100 mg orally take prn migraine, may repeat after two hours prn ropinirole 1 mg tablet 1 - 2 mg PO .COMPLEX PRN (Reason: restless leg(s)) Qty: 60 5RF Rx Instructions: 1 - 2 mg orally at bedtime PRN; B-complex with vitamin C Capsule 1 cap PO QAM cyclosporine [Restasis] 0.05 % dropperette 1 drp ophthalmic (eye) Q OTHER DAY PRN (Reason: Dry Eye(S)) magnesium 250 mg tablet 500 mg PO HS docusate sodium [Dulcolax Stool Softener (dss)] 100 mg capsule 200 mg PO PM aspirin 81 mg tablet,delayed release (DR/EC) 81 mg PO QPM Probiotic 20 billion cell Capsule 20,000 mmu cells PO DAILY phenazopyridine [Pyridium] 200 mg tablet 200 mg PO Q8H PRN (Reason: pain) Qty: 10 0RF Referrals Referrals: Michael King MD [Primary Care Provider] - Discharge Problem: Chest pain Qualifiers: Chest pain type: unspecified Qualified Code(s): R07.9 - Chest pain, unspecified
[2024-09-22 21:02] LABS: Thyroid Stimulating Hormone 3.516 uIu/ml (0.300-4.500)
[2024-09-22] MEDS ORDERED: POLYETHYLENE (MIRALAX) 17 GM PACK PO PRN (21:34)
[2024-09-22] MEDS ORDERED: MELATONIN 3 MG TAB PO PRN (21:34)
[2024-09-22] MEDS ORDERED: MAGNESIUM HYDROXIDE SUSP 30 ML UDC PO PRN (21:34)
[2024-09-22] MEDS ORDERED: ARTIFICIAL TEARS OP PRN (21:44)
[2024-09-22] MEDS: DICLOFENAC SOD 1% GEL 100 GM TUBE EXT SCH (22:57)
[2024-09-22] MEDS: HYDROXYCHLOROQUINE SULFATE 200 MG TAB PO SCH (22:59)
[2024-09-22] MEDS: LUBIPROSTONE 8 MCG CAP PO SCH (22:59)
[2024-09-22] MEDS: ASPIRIN 81 MG ECTAB PO SCH (23:01)
[2024-09-22] MEDS: rOPINIRole HCL 1 MG TABLET PO PRN (23:01)
[2024-09-22] MEDS: METOPROLOL SUCC 50MG EXT REL TAB PO SCH (23:02)
[2024-09-22] MEDS: HEPARIN SOD 5,000 UNIT/0.5 ML VIAL SQ SCH (23:02)
[2024-09-22] MEDS: MAGNESIUM OXIDE 400 MG TAB PO SCH (23:02)
--- NOTE | 2024-09-23 00:51 | Ultrasound Report ---
Exam(s): US VENOUS BILATERAL LOWER EXTREMITIES EXAM: US Duplex Bilateral Lower Extremities Veins CLINICAL HISTORY: Reason for exam: Calf swelling L, calf pain/knee fx R. TECHNIQUE: Real-time duplex ultrasound scan of the bilateral lower extremity veins integrating B-mode two-dimensional vascular structure, Doppler spectral analysis, color flow Doppler imaging and compression. COMPARISON: Right lower extremity venous ultrasound dated 09/14/24 FINDINGS: Right deep veins: Unremarkable. No DVT in the right common femoral, femoral, proximal deep femoral or popliteal veins. The veins demonstrate normal color flow, are normally compressible, with normal phasic flow and/or augmentation response. Right superficial veins: Unremarkable. No thrombus in the visualized right great saphenous vein. Left deep veins: Unremarkable. No DVT in the left common femoral, femoral, proximal deep femoral or popliteal veins. The veins demonstrate normal color flow, are normally compressible, with normal phasic flow and/or augmentation response. Left superficial veins: Unremarkable. No thrombus in the visualized left great saphenous vein. Soft tissues: No acute findings. No popliteal cyst. IMPRESSION: Normal bilateral lower extremity duplex venous ultrasound. Electronically signed by: Penelope Bowser M.D. 09/23/24 00:50 AM
[2024-09-23] MEDS: ONDANSETRON INJ 2 MG/ML 2 ML VIAL IV PRN (05:55)
[2024-09-23 06:51] LABS: Hematocrit (blood only) 35.8 % (37.0-47.0); Hemoglobin 11.8 g/dl (12.0-16.0); Mean Corpuscular Hemoglobin 30.9 pg (25.0-34.0); Mean Corpuscular Volume 93.7 fL (80.0-100.0); Mean Platelet Volume 12.3 fL (9.4-12.4); Platelet Count 181 K/uL (130-400); RDW Coefficient of Variation 14.5 % (11.5-14.5); RDW Standard Deviation 49.7 fL (36.4-46.3); Red Blood Count 3.82 M/uL (4.20-5.40)
[2024-09-23 07:06] LABS: BUN Creatinine Ratio 17.3 (10-20); Calcium 10.4 mg/dl (8.6-10.3); Creatinine Clr Calc Pharmacy 42.9 ml/min
--- NOTE | 2024-09-23 08:03 | Hospitalist Progress Note ---
Date of Service September 23, 2024 Assessment & Plan (1) Chest pain: (2) CKD (chronic kidney disease): (3) Elevated alkaline phosphatase level: Plan 68-year-old female PMHx HLD, HTN, GERD, CKD stage III, hypothyroidism, migraine with aura, and PLMD presenting for chest pain starting day of arrival. ED evaluation reveals no leukocytosis, H&H stable 12.6/39.2; PT/INR WNL, D-dimer 670; CMP creatinine 1.44, BUN 26, calcium 10.5, alkaline phosphatase 145; troponin 15.1, pending repeat; CXR without acute findings; chest CTA negative for PE; EKG atrial paced rhythm with prolonged AV conduction, RBBB, T wave abnormality at 82 bpm.; Provided with nitroglycerin 0.4 mg SL and aspirin 324 mg p.o. in ED. #Chest pain/HTN/HLD/PSVT Chest pain starting at morning of arrival, lasting ~ 15-20 minutes in duration with radiation to jaw, neck, and shoulder blades, with associated SOB; Follows with cardiology (Dr. Silva) most recent visit being 08/11/2024; history of PSVT, HTN, HLD, RBBB, symptomatic sinus bradycardia and presence of pacemaker for symptomatic bradycardia (December 2018). Continues to have random episodes of syncope per patient, none within the last week. Takes aspirin daily; Furosemide, losartan, metoprolol, spironolactone, verapamil at home. Trop downtrending upon repeat. - CBC without leukocytosis, H&H stable; TSH WNL - CBC am (monitor H/H) - D-dimer 670; Chest CTA negative PE -- pt experiencing LLE edema, RLE calf pain - Bilateral duplex US pending r/o DVT - Troponin 15.1, repeat 15.0 - no further repeat labs unless chest pain recurs - EKG atrial paced rhythm with prolonged AV conduction RBBB and T wave abnormality 82 bpm - CXR without acute findings - Echo 06/18/2022 EF 60 to 65%, mild MR, mild TR, pacemaker lead in RV no pericardial effusion --pending repeat - Obtain pacer interrogation - Lipid panel 08/03/2024 total 128, LDL 68, HDL 41, TG 94 -- previously on zetia and prior to this a statin but unable to tolerate given muscle cramping - Continue ASA daily - Cardiac monitoring #CKD stage III H/o CKD stage III, baseline Cr appears to be 1.2-1.6, eGFR 39.86. - Cr at admission 1.44 - BMP am - UA pending - Renally dose medications as appropriate #Elevated Alk phos Chronic findings, most recently addressed by PCP. H/o osteopenia. No abdominal pain. - Alk phos 145, otherwise LFTs WNL - Vit D pending am Calcium mildly elevated at admission (10.5) -- HOLD calcium carbonate x 1 day then can resume #Hypothyroidism- Pending TSH; levothyroxine - continue #Migraine- Follows with neurology; Atogepant, naratriptan prn, urogepant - continue #Constipation/IBS- Recent MR/Xr defecography at [facility] 09/21/2024, dx with rectal cystocele; Docusate, Lubiprostone - continue #RLS- Duloxetine, ropinirole, magnesium - continue #GERD- Famotidine, pantoprazole - continue #Inflammatory arthritis/RA- Hydroxychloroquine - continue Dispo: Admit, med/tele VTE Prophylaxis: Heparin This document was dictated utilizing [employer]. Please excuse any grammatical errors that may be secondary to use of this software. Admission and Anticipated Discharge Date Admission Date: September 22, 2024 Results & Data Results & Data Vital Signs (Past 12 Hours) Vital Signs Temp Pulse Pulse Resp BP BP Pulse Ox 09/23/24 07:42 36.8 C 61 18 111/65 95 09/23/24 07:40 63 09/23/24 03:33 36.4 C L 60 16 95/58 L 98 09/22/24 23:00 09/22/24 22:20 36.3 C L 66 18 123/73 100 09/22/24 22:00 61 09/22/24 20:30 61 12 125/56 L 09/22/24 20:30 125/56 L 09/22/24 20:30 125/56 L 09/22/24 20:30 125/56 L 09/22/24 20:30 125/56 L 09/22/24 20:24 65 17 09/22/24 20:00 112/60 O2 Del Method 09/23/24 07:42 Room Air 09/23/24 07:40 09/23/24 03:33 Room Air 09/22/24 23:00 Room Air 09/22/24 22:20 Room Air 09/22/24 22:00 09/22/24 20:30 09/22/24 20:30 09/22/24 20:30 09/22/24 20:30 09/22/24 20:30 09/22/24 20:24 09/22/24 20:00 Laboratory Results 09/23/24 09/22/24 09/22/24 Range/Units 06:18 20:19 16:40 WBC 6.20 7.26 (4.8-10.8) K/ul RBC 3.82 L 4.22 (4.20-5.40) M/uL Hgb 11.8 L 12.6 (12.0-16.0) g/dl Hct 35.8 L 39.2 (37.0-47.0) % MCV 93.7 92.9 (80.0-100.0) fL MCH 30.9 29.9 (25.0-34.0) pg MCHC 33.0 32.1 (32.0-36.0) g/dL RDW Std Deviation 49.7 H 49.1 H (36.4-46.3) fL RDW Coeff of Rowdy 14.5 14.6 H (11.5-14.5) % Plt Count 181 190 (130-400) K/uL MPV 12.3 12.1 (9.4-12.4) fL Immature Gran % (Auto) 1.8 % Neut % (Auto) 65.7 % Lymph % (Auto) 23.7 % Starke % (Auto) 8.0 % Eos % (Auto) 0.0 % Baso % (Auto) 0.8 % Neut # (Auto) 4.77 (1.40-6.50) K/uL Lymph # (Auto) 1.72 (1.20-3.40) K/uL Starke # (Auto) 0.58 (0.11-0.59) K/uL Eos # (Auto) 0.00 (0.00-0.50) K/uL Baso # (Auto) 0.06 (0.00-0.20) K/uL Immature Gran # (Auto) 0.13 (0.01-0.20) K/uL PT 10.2 (9.0-12.0) Seconds INR 0.9 (0.9-1.1) APTT 27 (21-31) Seconds PTT Ratio 1.0 D-Dimer 670 H* (0-500) ug/L FEU Sodium 141 140 (136-145) mmol/L Potassium 4.0 4.2 (3.5-5.1) mmol/L Chloride 105 106 (98-107) mmol/L Carbon Dioxide 27 27 (21-32) mmol/L Anion Gap 9 7 (3-11) BUN 24 H 26 H (6-23) mg/dl Creatinine 1.39 H 1.44 H (0.6-1.2) mg/dl Est Cr Clr Drug Dosing 42.9 41.8 ml/min eGFR 41.59 39.86 BUN/Creatinine Ratio 17.3 18.1 (10-20) Glucose 95 88 (70-99(Fasting)) mg/dl Calcium 10.4 H 10.5 H (8.6-10.3) mg/dl Magnesium 2.0 (1.7-2.4) mg/dl Total Bilirubin 0.6 (0.2-1.0) mg/dl AST 27 (13-39) U/L ALT 29 (7-52) U/L Alkaline Phosphatase 145 H (34-104) U/L Troponin I High Sens 15.0 H 15.1 H (0-14) pg/ml Total Protein 7.2 (6.0-8.3) gm/dl Albumin 4.5 (3.4-5.0) gm/dl Globulin 2.7 (2.5-4.0) gm/dl Albumin/Globulin Ratio 1.7 (0.9-2) 25-OH Vitamin D Total 38.8 (30-100) ng/ml TSH 3.516 (0.300-4.500) uIu/ml Diagnostic Findings Chest X-Ray 09/22/24 16:35 Clinical History: Chest pain Technique: A frontal view of the chest was obtained Comparison is made to the prior examination dated 03/11/2023 Findings: There are no confluent pulmonary infiltrates. The heart size is within normal limits. No pleural effusion or pneumothorax is seen. There is no definite pulmonary nodule. No fracture is noted. There is a left chest wall pacemaker device. There is contrast within the visualized: Impression: No active disease Electronically signed by Nolberto Stark 09-22-2024 5:18 PM Chest CTA 09/22/24 17:40 CT pulmonary angiogram with IV contrast History: Chest pain COMPARISON: 11/29/2022 TECHNIQUE: CT angiography of the chest was performed without IV contrast followed by IV contrast, including 3D post processing CTA image reconstruction. Dose reduction techniques were achieved by using automatic exposure control and/or adjustment of mA and/or kV according to patient size and/or use of iterative reconstruction technique. FINDINGS: Diagnostic quality: Adequate There is no evidence for pulmonary embolism. The heart is not enlarged. Mild coronary calcification. Left chest wall dual-lead AICD. There is no pericardial effusion. There are no abnormally enlarged hilar or mediastinal lymph nodes. The central tracheobronchial tree is clear. The lungs are clear. There is no pleural effusion. Limited visualized upper abdomen. No destructive osseous changes are seen. IMPRESSION: No evidence for pulmonary embolism. Electronically signed by Michael Daley 09-22-2024 6:08 PM Venous Doppler Study 09/22/24 19:54 Exam(s): US VENOUS BILATERAL LOWER EXTREMITIES EXAM: US Duplex Bilateral Lower Extremities Veins CLINICAL HISTORY: Reason for exam: Calf swelling L, calf pain/knee fx R. TECHNIQUE: Real-time duplex ultrasound scan of the bilateral lower extremity veins integrating B-mode two-dimensional vascular structure, Doppler spectral analysis, color flow Doppler imaging and compression. COMPARISON: Right lower extremity venous ultrasound dated 09/14/24 FINDINGS: Right deep veins: Unremarkable. No DVT in the right common femoral, femoral, proximal deep femoral or popliteal veins. The veins demonstrate normal color flow, are normally compressible, with normal phasic flow and/or augmentation response. Right superficial veins: Unremarkable. No thrombus in the visualized right great saphenous vein. Left deep veins: Unremarkable. No DVT in the left common femoral, femoral, proximal deep femoral or popliteal veins. The veins demonstrate normal color flow, are normally compressible, with normal phasic flow and/or augmentation response. Left superficial veins: Unremarkable. No thrombus in the visualized left great saphenous vein. Soft tissues: No acute findings. No popliteal cyst. IMPRESSION: Normal bilateral lower extremity duplex venous ultrasound. Electronically signed by: Penelope Bowser M.D. 09/23/24 00:50 AM PG Care Time/CCT Total # of Minutes Spent Total Time Spent with Patient: Total time spent is greater than 50% in coordination of care (as documented) at patient's floor/unit and/or counseling patient: Coding Diagnoses Chest pain R07.9 Chest pain type: unspecified CKD (chronic kidney disease) N18.9 Elevated alkaline phosphatase level R74.8 (1) Chest pain Chest pain type: unspecified Qualified Code(s): R07.9 - Chest pain, unspecified
[2024-09-23] MEDS: allopurinoL 300 MG TAB PO SCH (08:05)
[2024-09-23] MEDS: DULoxetine HCL 20 MG CAP PO SCH (08:06)
[2024-09-23] MEDS: PANTOprazole 40 MG TAB PO SCH (08:10)
[2024-09-23] MEDS: VERAPAMIL HCL 240 MG TABCR PO SCH (08:10)
[2024-09-23] MEDS: SPIRONOLACTONE 25 MG TAB PO SCH (08:10)
[2024-09-23] MEDS: FUROSEMIDE 40 MG TAB PO SCH (08:10)
[2024-09-23] MEDS: FERROUS SULFATE 325 MG TAB PO SCH (08:10)
[2024-09-23] MEDS: POTASSIUM CHLORIDE 10 MEQ TABCR PO SCH (08:10)
[2024-09-23] MEDS: LOSARTAN POTASSIUM 50 MG TAB PO SCH (08:10)
[2024-09-23] MEDS: FAMOTIDINE 20 MG TAB PO SCH (08:10)
[2024-09-23 11:30] VITALS: BP 113/69; RESP 20; TEMP 98.1; O2SAT 96
[2024-09-23] MEDS: LEVOTHYROXINE SODIUM 100 MCG TABLET PO SCH (12:38)
--- NOTE | 2024-09-23 12:57 | XCELERA ---
[id number]
--- NOTE | 2024-09-23 13:46 | Electrocardiogram Report ---
Test Reason : Blood Pressure : */* mmHG Vent. Rate : 82 BPM Atrial Rate : 82 BPM P-R Int : 282 ms QRS Dur : 136 ms QT Int : 400 ms P-R-T Axes : -14 66 -10 degrees QTcB Int : 467 ms Atrial-paced rhythm with prolonged AV conduction Right bundle branch block Septal infarct (cited on or before 11-Mar-2023) T wave abnormality, consider inferolateral ischemia Abnormal ECG When compared with ECG of 10-Aug-2024 11:51, Electronic atrial pacemaker has replaced Sinus rhythm Confirmed by Steven Silva ([id number]) on 09/23/2024 1:46:24 PM Referred By: Confirmed By: Steven Silva
--- NOTE | 2024-09-23 13:47 | Discharge Summary ---
Discharge Summary Date of Service September 23, 2024 Principal Dx & Hospital Course #1 = Principal Diagnosis (1) Chest pain: (2) CKD (chronic kidney disease): (3) Elevated alkaline phosphatase level: Plan This is a 68-year-old female with past medical history of hyperlipidemia, hypertension, GERD, CKD stage III who presented to the emergency department on 09/22/2024 with a chief complaint of chest pain. #Chest pain Started morning of arrival, lasted 15 to 20 minutes in duration with radiation to the jaw, neck, shoulder blades with shortness of breath. Follows with cardiology, most recent visit 08/11/2024. Pacemaker placement since December 2018 CBC without leukocytosis, TSH WNL D-dimer mildly elevated at 670CTA negative for PE Bilateral duplex negative for DVT Troponin 15.1 with repeat at 15.0 EKG negative x 2 Chest x-ray without acute findings Updated echo 09/23 unchanged since previousEF 60 to 65%, mild MR, mild TR Continue daily aspirin Upon physical exam, patient was tender to palpation in her sternal area and epigastric region. Unclear whether this could be inflammatory versus GI related. Recommended she is Tylenol as needed for pain (she does not use NSAIDs w/ her CKD) and continue her acid reflux medication. Defer to PCP/GI/cardiology outpatient if any further workup is needed. #CKD stage III Baseline creatinine between 1.2-1.6 Creatinine WNL at 1.39 #Elevated alk phos Chronic, recently addressed by PCP. History of osteopenia. No abdominal pain. Alk phos 145, otherwise LFTs WNL #HypothyroidismTSH WNL, levothyroxine #Migrainefollows with neurology, continue outpatient medications #Constipation/IBSfollows with GI here and at [facility] regimen #RLSduloxetine, ropinirole, magnesium #GERDfamotidine, pantoprazole #Inflammatory arthritis/RAhydroxychloroquine updated @ bedside 09/23 Admission HPI Per Admitting Provider 68-year-old female PMHx HLD, HTN, GERD, CKD stage III, hypothyroidism, migraine with aura, and PLMD presenting for chest pain starting day of arrival. Patient states she was at her uatsdin the morning of arrival when she started to experience a sharp left-sided chest pain upon leaving the building. States that it was right over her left breast, radiating under the breast, into her L neck and jaw, and she experienced significant SOB at that time. Rates the pain 9 out of 10 on the pain scale when it occurred, and had lasted 15 to 20 minutes in duration. She was able to drive herself home and upon sitting, she noticed that the pain subsided. Given the severity of the pain with the associated SOB, she decided to be evaluated. Came to the ED shortly after the pain had initially subsided, and states that she had a twinge of pain when she was being wheeled back to her room which lasted just seconds and then resolved again. Of note, patient states that she did use her pulse oximeter at home and states that her O2 sats were in the 70s, but she does also have a history of Raynaud's. At the present, no SOB or chest pain. Patient reports she had a visit at [facility] 09/21/2024 and diagnosed with rectal cystocele. Noted that she did have some bleeding per rectum following this diagnosis x 1, but has not experienced this since. Does occasionally have no control of bowel movements and will soil her clothes, which sometimes leads to recurrent UTIs. Also notes a 60 pound weight loss since being diagnosed with gastroparesis, and ongoing anorexia. At present, patient is denying chest pain, shortness of breath, palpitations, abd ominal pain, N/V/D/C, numbness/tingling, fever/chills, LUTS, URI symptoms, syncope, or weakness. No episodes of diaphoresis. Notes that she is no longer on a statin medication or Zetia because it causes her leg cramping. No recent episodes of gout. ED evaluation reveals no leukocytosis, H&H stable 12.6/39.2; PT/INR WNL, D-dimer 670; CMP creatinine 1.44, BUN 26, calcium 10.5, alkaline phosphatase 145; troponin 15.1, repeat 15.0; TSH WNL; CXR without acute findings; chest CTA negative for PE; EKG atrial paced rhythm with prolonged AV conduction, RBBB, T wave abnormality at 82 bpm.; Provided with nitroglycerin 0.4 mg SL and aspirin 324 mg p.o. in ED. Please see Dr. Crouch's attestation for adjustments/additions to treatment plan. Discharge Exam General: no acute distress; non-toxic appearing; well-nourished; cooperative HEENT: normocephalic, atraumatic; no scleral icterus; PERRLA w/ EOMs intact; vi christian and hearing grossly intact Skin: warm, dry without signs of tenting; no cyanosis; no rashes, bruising, lesions, or erythema noted CV: tenderness to chest wall midline near base of sternum. Regular rate & rhythm Lungs: no acute respiratory distress; symmetrical chest wall expansion; clear breath sounds across all lung naik w/o adventitious sounds; no wheezing ABD: Soft, Epigastric tenderness +; hypoactive BS MSK: no edema noted in the LEs b/l, nonerythematous Neuro: A&Ox3; normal mood and affect; fluent speech; no focal deficits Discharge Plan Discharge Items Patient Disposition: Home - Self-Care Reason For Visit: CHEST PAIN Discharge Diagnosis: Chest pain Condition on Discharge: Fair Activity: Resume your previous activity Non-emergency contact: Primary Care Provider, Hat Lining Paster and Seafood Manager Call non-emergency contact if: you have any medication questions, your symptoms worsen, your pain is not controlled, your pain is worsening and your pain is unusual for you Follow-up/Referrals: Michael King MD [Primary Care Provider] - 09/29/24 11:00 am Diet: Heart Healthy Addtl Attending Provider Instructions: Mrs. Daugherty, You were recently hospitalized for chest pain. You had a cardiac workup that was found to be negative. Please see recommendations below regarding your discharge. Please follow up with your PCP, tea plantation worker, and vascular specialists regarding your hospital stay for any further recommendations. You may continue your outpatient medications. If you develop any worsening chest pain or shortness of breath please report back to the ER for further care. Sincerely, Randa Renner PA-C Pending Studies at Discharge: No Stand-Alone Forms: My SmartHub, Smoking Cessation Medications and DC Order Prescriptions: Continued diclofenac sodium 1 % gel 2 g topical QID Rx Instructions: apply to single elbow, wrist or hand; for hand includes palm/fingers/back of hand metoprolol succinate 50 mg tablet extended release 24 hr 50 mg PO BID Qty: 180 3RF levothyroxine 100 mcg tablet 100 mcg PO QDL Qty: 90 3RF furosemide 40 mg tablet 40 mg PO QAM Qty: 90 3RF hydroxychloroquine 200 mg tablet 200 mg PO BID Qty: 180 0RF verapamil 240 mg capsule,ext rel. pellets 24 hr 240 mg PO QAM Qty: 90 3RF amoxicillin 500 mg tablet 2,000 mg PO ONCE Qty: 32 3RF Rx Instructions: 4 tabs 1 hour prior to procedure potassium chloride [Klor-Con 10] 10 mEq tablet extended release 10 meq PO QAM Qty: 90 3RF Qulipta 60 mg tablet 60 mg PO DAILY 90 Days Qty: 90 2RF famotidine 20 mg tablet 20 mg PO DAILY Qty: 90 3RF naratriptan 2.5 mg tablet 2.5 mg PO ONCE PRN (Reason: migraine headache) 30 Days Qty: 9 4RF lubiprostone [Amitiza] 24 mcg capsule 24 mcg PO BID Qty: 180 3RF ferrous sulfate [Feosol] 325 mg (65 mg iron) tablet 325 mg PO QAM calcium carbonate [Calcium 600] 600 mg calcium (1,500 mg) tablet 600 mg PO BID Qty: 60 0RF ezetimibe [Zetia] 10 mg tablet 10 mg PO DAILY Qty: 90 3RF Hold Instructions: muscle pain-hold from ED recs Rx Instructions: HOLD allopurinol 300 mg tablet 300 mg PO DAILY MDD qam Qty: 90 3RF duloxetine 20 mg capsule,delayed release(DR/EC) 20 mg PO QAM Qty: 90 3RF pantoprazole 40 mg tablet,delayed release (DR/EC) 40 mg PO DAILY Qty: 90 3RF prednisone 5 mg tablet 1 mg PO QPM losartan 100 mg tablet 50 mg PO QAM spironolactone 25 mg tablet 25 mg PO QAM Hold Instructions: CKD Patient Comments: pt reported she resumed Ubrelvy 100 mg tablet 100 mg PO .COMPLEX MDD 200 mg PRN (Reason: migraine headache) 90 Days Qty: 48 3RF Rx Instructions: 100 mg orally take prn migraine, may repeat after two hours prn ropinirole 1 mg tablet 1 - 2 mg PO .COMPLEX PRN (Reason: restless leg(s)) Qty: 60 5RF Rx Instructions: 1 - 2 mg orally at bedtime PRN; B-complex with vitamin C Capsule 1 cap PO QAM cyclosporine [Restasis] 0.05 % dropperette 1 drp ophthalmic (eye) Q OTHER DAY PRN (Reason: Dry Eye(S)) magnesium 250 mg tablet 500 mg PO HS docusate sodium [Dulcolax Stool Softener (dss)] 100 mg capsule 200 mg PO PM aspirin 81 mg tablet,delayed release (DR/EC) 81 mg PO QPM Probiotic 20 billion cell Capsule 20,000 mmu cells PO DAILY phenazopyridine [Pyridium] 200 mg tablet 200 mg PO Q8H PRN (Reason: pain) Qty: 10 0RF Discharge Orders: Discharge Order (Routine); Ordered 09/23/24 Ordered By: Randa Renner Admission Data Admit Date/Time: 09/22/24 19:54 Attending Provider: Clay Klein Admit Provider: Manish Crouch Primary Care Provider: Michael King Other Providers: Lee Long Hospital Stay Data Consultations 09/22/24 18:41 ED Decision to Admit Stat Diagnostic Imagining Performed 09/22/24 17:40 CT angio chest PE protocol Stat 09/22/24 19:54 US venous doppler LE BI Stat Pending Results Patient Have Any Pending Studies at Discharge: No Discharge Instructions Given to Patient (Per Discharging Provider) Mrs. Daugherty, You were recently hospitalized for chest pain. You had a cardiac workup that was found to be negative. Please see recommendations below regarding your discharge. Please follow up with your PCP, tea plantation worker, and vascular specialists regarding your hospital stay for any further recommendations. You may continue your outpatient medications. If you develop any worsening chest pain or shortness of breath please report back to the ER for further care. Sincerely, Randa Renner PA-C Supervising Physician Co-Signing Physician Notes The patient was not seen by me. The chart was reviewed. Case discussed with ARJUN Bello. Agree with assessment and plan Total Time Total Time Spent Total Time Spent (In Minutes): 45 Total Time Includes: Examination of the Patient, Discharge Planning and Medication Reconciliation Coding Level of Care Code 43514 INP/OBS DISCH >30 MIN Diagnoses Chest pain R07.9 Chest pain type: unspecified CKD (chronic kidney disease) N18.9 Elevated alkaline phosphatase level R74.8
--- NOTE | 2024-09-23 13:58 | Electrocardiogram Report ---
Test Reason : Blood Pressure : */* mmHG Vent. Rate : 62 BPM Atrial Rate : 62 BPM P-R Int : 242 ms QRS Dur : 134 ms QT Int : 480 ms P-R-T Axes : 77 85 31 degrees QTcB Int : 487 ms Atrial-paced rhythm with prolonged AV conduction Non-specific intra-ventricular conduction block Cannot rule out Septal infarct (cited on or before 11-Mar-2023) T wave abnormality, consider inferior ischemia T wave abnormality, consider anterolateral ischemia Abnormal ECG When compared with ECG of 22-Sep-2024 16:36, (unconfirmed) No significant change was found Confirmed by Steven Silva ([id number]) on 09/23/2024 1:57:43 PM Referred By: REFERRED SELF Confirmed By: Steven Silva
[2024-09-23 14:47] VITALS: PULSE 60
== END 2024-09-23 15:21 | disposition home or self-care (01) ==
LOC: ED 16:23 → 2N 16:23 → SUATTDRO 19:54 → 2N 20:57

== ENCOUNTER 2024-10-30 15:44 | Observation (INO) ==
[2024-10-30 16:21] LABS: Basophils # (auto) 0.04 K/uL (0.00-0.20); Basophils % (auto) 0.8 %; Hematocrit (blood only) 36.3 % (37.0-47.0); Hemoglobin 11.4 g/dl (12.0-16.0); Immature Granulocytes # (auto) 0.11 K/uL (0.01-0.20); Immature Granulocytes % (auto) 2.3 %; Lymphocytes % (auto) 23.3 %; Mean Corpuscular Hemoglobin 30.2 pg (25.0-34.0); Mean Corpuscular Hgb Conc 31.4 g/dL (32.0-36.0); Mean Platelet Volume 11.6 fL (9.4-12.4); Monocytes # (auto) 0.43 K/uL (0.11-0.59); Monocytes % (auto) 9.1 %; Neutrophils # (auto) 3.05 K/uL (1.40-6.50); Neutrophils % (auto) 64.5 %; Platelet Count 179 K/uL (130-400); RDW Standard Deviation 49.4 fL (36.4-46.3); Red Blood Count 3.78 M/uL (4.20-5.40); White Blood Count 4.73 K/ul (4.8-10.8)
[2024-10-30 16:33] LABS: Bilirubin,Total 0.5 mg/dl (0.2-1.0); Calcium 9.6 mg/dl (8.6-10.3); Potassium 3.8 mmol/L (3.5-5.1)
[2024-10-30 16:39] LABS: Albumin Globulin Ratio 1.8 (0.9-2); BUN Creatinine Ratio 18.9 (10-20); Creatinine Clr Calc Pharmacy 53.9 ml/min; Globulin 2.2 gm/dl (2.5-4.0); Total Protein 6.1 gm/dl (6.0-8.3)
--- NOTE | 2024-10-30 16:51 | Emergency Department Note ---
History of Present Illness General Chief complaint: Abnormal Labs/Diagnostic Testing Stated complaint: ANTIBIOTICS Time Seen by Provider: 10/30/24 15:53 History of Present Illness This is a 69-year-old female that presents to the emergency department via private vehicle with complaints of "UTI, antibiotics". I did call the patient earlier today to review her urine cultures that did have some resistances. She noted she was feeling unwell and recommendation was to present for further assessment. The patient notes that for some time now she has been feeling unwell but despite the oral antibiotics at home she notes a fever this morning that was greater than 100 F, vomiting this morning and still has left flank pain. She also notes abdominal pain and points to the superior and inferior aspects of the abdomen midline. No trauma. No injury. Patient does note chronic diarrhea. She denies any blood in the stool. No black or tarry stools. Home Medications Medication Instructions Recorded Confirmed Type B-complex with vitamin C 1 cap PO QAM 07/09/21 10/30/24 History magnesium 250 mg tablet 500 mg PO HS 10/10/21 10/30/24 History aspirin 81 mg tablet,delayed 81 mg PO QPM 03/11/22 10/30/24 History release lactobacillus comb no.10 20 20,000 mmu cells PO DAILY 03/11/22 10/30/24 History billion cell capsule (Probiotic) calcium carbonate (Calcium 600) 600 mg PO BID #60 tabs 06/23/22 10/30/24 Rx ferrous sulfate 325 mg (65 mg 325 mg PO QAM 01/20/23 10/30/24 History iron) tablet (Feosol) diclofenac sodium 1 % topical gel 2 g topical QID 07/06/23 10/30/24 History furosemide 40 mg tablet 40 mg PO QAM #90 tabs 01/24/24 10/30/24 Rx allopurinol 300 mg tablet 300 mg PO DAILY #90 tabs 02/23/24 10/30/24 Rx duloxetine 20 mg capsule,delayed 20 mg PO QAM #90 caps 02/23/24 10/30/24 Rx release pantoprazole 40 mg tablet,delayed 40 mg PO DAILY gerd #90 tabs 02/23/24 10/30/24 Rx release hydroxychloroquine 200 mg tablet 200 mg PO BID #180 tabs 02/28/24 10/30/24 Rx verapamil 240 mg 24 hr 240 mg PO QAM #90 caps 04/11/24 10/30/24 Rx capsule,extended release potassium chloride 10 mEq 10 meq PO QAM #90 tabs 05/22/24 10/30/24 Rx tablet,extended release (Klor-Con) atogepant 60 mg tablet (Qulipta) 60 mg PO DAILY 90 days #90 tabs 05/24/24 10/30/24 Rx losartan 100 mg tablet 100 mg PO QAM 08/23/24 10/30/24 History ubrogepant 100 mg tablet (Ubrelvy) 100 mg PO .COMPLEX PRN migraine 08/23/24 10/30/24 Rx headache 90 days #48 tabs lubiprostone 24 mcg capsule 24 mcg PO BID #180 caps 09/05/24 10/30/24 Rx (Amitiza) levothyroxine 100 mcg tablet 100 mcg PO QDL #90 tabs 10/03/24 10/30/24 Rx ezetimibe 10 mg tablet 10 mg PO DAILY 10/17/24 10/30/24 History metoprolol succinate 50 mg 50 mg PO BID #180 tabs 10/17/24 10/30/24 Rx tablet,extended release 24 hr ropinirole 1 mg tablet 2 mg PO HS restless leg(s) 10/17/24 10/30/24 History spironolactone 25 mg tablet 25 mg PO QAM #90 tabs 10/17/24 10/30/24 Rx naratriptan 2.5 mg tablet 2.5 mg PO DIRECTED PRN migraine 10/28/24 10/30/24 History headache cefdinir 300 mg capsule 300 mg PO BID 7 days #14 caps 10/29/24 10/30/24 Rx oxycodone 5 mg tablet 5 mg PO Q8H PRN pain #10 tabs 10/29/24 10/30/24 Rx Allergies Allergy/AdvReac Type Severity Reaction Status Date / Time rifampin AdvReac Severe cardiac Verified 10/28/24 23:44 arrhythmia + renal failure cephalexin [From Keflex] AdvReac Intermediate Nausea Verified 10/28/24 23:44 Past Med/Surg History Problem List (Updated 10/30/24 @ 23:57 by Charles Adler PA-C) Dilation of biliary tract Abnormal computed tomography angiography (CTA) Celiac artery stenosis (Acute) Urinary tract infection (Acute) Left renal artery stenosis (Acute) Acute left flank pain (Acute) Bilateral edema of lower extremity (Acute) Abdominal pain (Acute) Rectocele Gastroparesis Chest pain (Acute) Elevated alkaline phosphatase level CKD (chronic kidney disease) Chest pain syndrome History of vitamin D deficiency Fecal incontinence Migraine with aura Osteoarthritis of left shoulder Cervical radiculopathy at C7 Cervical spinal stenosis S/P arthroscopy of shoulder Operation Date: 08/12/23 13:35 Actual Procedures p Left Shoulder Arthroscopy, extensive debridement, subacromial Decompression, Distal Clavicle Excision, Chondroplasty of Left Humeral Head, Biceps Tenodesis(Left) - Favian Blevins MD Osteoarthritis Osteoarthritis of left acromioclavicular joint SLAP lesion of left shoulder Impingement of left shoulder Myofascial pain syndrome, cervical Neuralgia Gout Granuloma annulare Chronic rhinitis Complex sleep apnea syndrome Multiple pulmonary nodules Morbid obesity Taking Farxiga for weight loss (no diabetes/prediabetes hx) Upper airway cough syndrome Chronic cough Allergic rhinitis with postnasal drip Exertional shortness of breath Iron deficiency anemia Urinary incontinence Chest pain (Acute) JACOB (obstructive sleep apnea) Constipation (Acute) Rheumatoid arthritis Paroxysmal SVT (supraventricular tachycardia) (Acute) Leukocytosis (Acute) Chronic venous insufficiency Lumbar radiculopathy Non-restorative sleep PLMD (periodic limb movement disorder) Excessive daytime sleepiness Osteopenia Nephrolithiasis Inflammatory arthritis Hyperlipidemia Elevated antinuclear antibody (BRIGHT) level Spinal stenosis of lumbar region Fatigue Essential tremor Bilateral hands - mild/intermittent Memory deficits Idiopathic peripheral neuropathy Left renal artery stenosis 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 Hypothyroidism Spondylolisthesis at L4-L5 level Generalized pain Restless leg syndrome Seronegative arthritis Presence of cardiac pacemaker RBBB (right bundle branch block) HTN (hypertension) GERD (gastroesophageal reflux disease) CKD (chronic kidney disease), stage III Erosive osteoarthritis (Chronic) Medical History Occlusion of celiac artery History of nephrolithiasis Multiple lung nodules Migraine Left renal artery stenosis Iron deficiency anemia Hypothyroidism Hyperlipidemia HTN (hypertension) History of vitamin D deficiency Gout Exertional shortness of breath Essential tremor Bilateral hands - mild/intermittent Chronic kidney disease (CKD), stage III (moderate) Chronic cough Lumbar stenosis Cervical spinal stenosis Allergic rhinitis Urinary incontinence Superior mesenteric artery stenosis Seronegative arthritis History of right bundle branch block Hx of supraventricular tachycardia s/p pacemaker placement Osteoarthritis Osteopenia Chronic venous insufficiency Hx of leukocytosis Chest pain syndrome 05/2024 >>f/U w/ Dr silva was told "nothing to be concerned about" Trigeminal neuralgia Pre-diabetes Right shoulder tendinitis Muscle spasm Random episodes, possibly r/t RLS but no definitive etiology found per patient Pre-syncope Hx pre-syncopal/syncope episodes r/t autonomic disorder vs vasovagal; improved recently with verapamil/metoprolol dosing adjustments On home O2 2 lpm PRN exertion; "rare" use Hx of orthostatic hypotension Autonomic neuropathy Idiopathic peripheral neuropathy History of recent steroid use [facility] [place] visit 07/08/23, "Gout.. Discussed that patient was supposed to taper down on her prednisone. Reduce prednisone to 10 mg for 1 week, then reduce to 5 mg" > patient now back to her baseline of 5mg daily Hx of sepsis 08/2021 ([place]) r/t kidney infection Hx MRSA infection ~2016 in the finger, dx at [facility]. Osteomyelitis- "had surgery to remove" Polymyalgia rheumatica states most recent testing came back negative follows w/ Dr Gomez Chronic daily prednisone- currently at maintenance dose of 2 mg daily- being weaned off Vascular disease Renal artery stenosis, celiac/SMA stenosis- no intervention felt necessary per 02/05/21 vascular note Per patient- seen at [facility] afterwards and felt report was read incorrect and patient has no significant stenosis Sleep apnea Non-compliant with CPAP GERD (gastroesophageal reflux disease) Restless legs syndrome Rheumatoid arthritis Questionable, serum negative Pacemaker Implanted 2018/recurrent syncope secondary to symptomatic bradycardia- last checked ~fall [address] Silva Gist History of COVID-19 07/2020- no current problems Spondylolysis Hypertension Surgical History Status post arthroscopy of left shoulder (08/12/23) Status post right knee replacement 01/16/22: LMA#5 + PNB. Status post right knee replacement 01/16/22: LMA#5 + PNB Status post placement of other cardiac pacemaker History of lumbar spinal fusion L4-5 fusion/decompression (03/13/22): Grade view 1, MAC#3, ETT 7.0 at [facility] S/P cardiac pacemaker procedure Implanted 2018 ([facility]) History of temporal artery biopsy Interdigital neuroma of foot Hx foot injections (done under anesthesia) History of hand surgery right finger left hand- I&D History of breast biopsy aspiration of cyst from left breast benign History of total abdominal hysterectomy and bilateral salpingo-oophorectomy History of dilatation and curettage History of bilateral tubal ligation History of colonoscopy History of esophagogastroduodenoscopy (EGD) History of cholecystectomy History of tooth extraction Family History Grandmother (Maternal) Family history of diabetes mellitus Father Myocardial infarction Lung cancer Hypertension Mother Acute myocardial infarction Hypertension Other No family history of adverse response to anesthesia Denies family history of Ovarian cancer Breast cancer Colorectal cancer Social History Smoking Status: Never smoker Second Hand Exposure: Yes (parents smoked); Do You Dip or Chew Tobacco: No; Hx Alcohol Use: No Hx Substance Use: No Preferred Language: Gambian Communication Ability: Effective Visual Impairment: No Limitations Personnel Adviser Required: No Beliefs That Will Affect Care: None marital status: Current Living Situation: Spouse Current Living Situation Comment: at home current occupational status: employed and retired 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, 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 How many Children do You have: 2 Feels Safe at Home: Yes Childhood Exposure to Second-Hand Smoke: Yes Diet: other Diet Comment: low dairy caffeine: Yes during the past year weight has: increased > 10 lbs Dental Care, Regularly: Yes Physical Activity Frequency: Daily Seatbelt Use: always Assistive Devices: Cane Review of Systems A total of 10 systems reviewed and were otherwise negative Physical Exam Vital Signs Vital Signs - 24 hr 10/30/24 15:47 10/30/24 16:22 10/30/24 18:00 Temperature 36.7 C Temperature Source Temporal Artery Scan Pulse Rate 78 Pulse Rate [Finger] 78 60 Pulse Rhythm Regular Pulse Strength Normal Respiratory Rate 20 14 16 Respiratory Effort / Characteristics Non-Labored Spontaneous Non-Labored Spontaneous Non-Labored Spontaneous Respiratory Depth Normal Normal Normal Respiratory Pattern Regular Regular Blood Pressure 108/69 Blood Pressure [Left Arm] 138/66 115/48 L Blood Pressure Mean 82 Blood Pressure Mean [Left Arm] 90 70 Blood Pressure Position Sitting Blood Pressure Position [Left Arm] Semi-fowlers Semi-fowlers Pulse Oximetry 98 96 100 Oxygen Delivery Method Room Air Room Air Room Air Sepsis Recent Fever Within 48 Hours No Sepsis New/Unexplained Change in Mental Status N/A Sepsis Action Taken by Nursing No Action Required VITAL SIGNS - Vital signs and nursing notes were reviewed. Stable and afebrile. GENERAL -69-year-old female appearing her stated age who is in no acute distress. Communicates well with provider and answers questions appropriately. SKIN - Without rashes. No meningeal or petechial rash. HEAD - NC/AT. EYES - PERRL with EOMI bilaterally. Sclera anicteric. EARS - No deformities of external structures noted on gross examination bilaterally. NOSE - Midline and without cyanosis. No epistaxis or purulent drainage noted. MOUTH/OROPHARYNX - Without perioral cyanosis. NECK - Neck with FROM. No nuchal rigidity. LUNGS - CTA CARDIAC - RRR ABDOMEN - Abdominal contour normal without pulsations or visible masses. BS normoactive all four quadrants. There is some reproducible tenderness in the superior and inferior aspects of the abdomen. No CVA tenderness. No palpable masses, hepatosplenomegaly, or ascites noted. EXTREMITIES - No clubbing or peripheral cyanosis. +5/5 strength noted in UE/LE bilaterally. NEUROLOGIC - Cranial nerves II through XII grossly intact. PSYCH -alert, oriented and pleasant on exam. Course Administered Medications Acetaminophen (Acetaminophen 325 Mg Tab) 650 mg PO Q4H PRN PRN Reason: pain/fever Stop: 11/29/24 20:26 Last Admin: 10/30/24 21:15 Dose: 650 mg Documented By: ERIS Al Hydrox/Mg Hydrox/Simethicone (Aluminum/Magnesium Susp 30 Ml Udc) 30 ml PO Q6H PRN PRN Reason: Dyspepsia Stop: 11/29/24 20:26 Last Admin: 10/30/24 21:15 Dose: 30 ml Documented By: ERIS Aspirin (Aspirin 81 Mg Ectab) 81 mg PO QPM [facility] Stop: 11/29/24 20:59 Last Admin: 10/30/24 21:15 Dose: 81 mg Documented By: ERIS Calcium Carbonate (Calcium Carbonate 1250mg Tab) 1 tab PO BID [facility] Stop: 11/29/24 20:59 Last Admin: 10/30/24 22:03 Dose: 1 tab Documented By: JEB Enoxaparin Sodium (Enoxaparin Inj 40 Mg/0.4 Ml Syr) 40 mg SQ Q24H [facility] Stop: 11/29/24 20:26 Last Admin: 10/30/24 22:02 Dose: Not Given Documented By: JEB Hydroxychloroquine Sulfate (Hydroxychloroquine Sulfate 200 Mg Tab) 200 mg PO BID DODIE Stop: 11/29/24 20:59 Last Admin: 10/30/24 22:04 Dose: 200 mg Documented By: JEB Lactated Ringer's (Lr) 1,000 mls @ 125 mls/hr IV .Q8H DODIE Stop: 11/02/24 20:26 Last Admin: 10/30/24 21:09 Dose: 125 mls/hr Documented By: ERIS Lubiprostone (Lubiprostone 8 Mcg Cap) 24 mcg PO BID DODIE Stop: 11/29/24 20:59 Last Admin: 10/30/24 22:05 Dose: 24 mcg Documented By: JEB Metoprolol Succinate (Metoprolol Succ 50mg Ext Rel Tab) 50 mg PO BID DODIE Stop: 11/29/24 20:59 Last Admin: 10/30/24 22:06 Dose: 50 mg Documented By: JEB Ropinirole HCl (Ropinirole Hcl 2 Mg Tablet) 2 mg PO HS DODIE Stop: 11/29/24 20:59 Last Admin: 10/30/24 22:06 Dose: 2 mg Documented By: JEB Discontinued Medications Acetaminophen (Acetaminophen 500 Mg Tab) 1,000 mg PO NOW STA Stop: 10/30/24 18:37 Last Admin: 10/30/24 18:55 Dose: 1,000 mg Documented By: ALTAGRACIA Ceftriaxone Sodium (Rocephin) 1,000 mg in 50 mls @ 100 mls/hr IV NOW STA Stop: 10/30/24 17:17 Last Infusion: 10/30/24 18:24 Dose: Infused Documented By: Admin: 10/30/24 17:40 Dose: 100 mls/hr Documented By: JEN Polyethylene Glycol/Electrolytes (Lavage Solution 4000ml) 16 dose PO NOW ONE Stop: 10/30/24 22:01 Last Admin: 10/30/24 22:06 Dose: 16 dose Documented By: JEB Medical Decision Making Laboratory Data 10/30/24 15:56 10/30/24 15:56 Lab Results 10/30/24 10/30/24 Range/Units 15:56 16:25 WBC 4.73 L (4.8-10.8) K/ul RBC 3.78 L (4.20-5.40) M/uL Hgb 11.4 L (12.0-16.0) g/dl Hct 36.3 L (37.0-47.0) % MCV 96.0 (80.0-100.0) fL MCH 30.2 (25.0-34.0) pg MCHC 31.4 L (32.0-36.0) g/dL RDW Std Deviation 49.4 H (36.4-46.3) fL RDW Coeff of Rowdy 14.0 (11.5-14.5) % Plt Count 179 (130-400) K/uL MPV 11.6 (9.4-12.4) fL Immature Gran % (Auto) 2.3 % Neut % (Auto) 64.5 % Lymph % (Auto) 23.3 % [place] % (Auto) 9.1 % Eos % (Auto) 0.0 % Baso % (Auto) 0.8 % Neut # (Auto) 3.05 (1.40-6.50) K/uL Lymph # (Auto) 1.10 L (1.20-3.40) K/uL [place] # (Auto) 0.43 (0.11-0.59) K/uL Eos # (Auto) 0.00 (0.00-0.50) K/uL Baso # (Auto) 0.04 (0.00-0.20) K/uL Immature Gran # (Auto) 0.11 (0.01-0.20) K/uL Sodium 142 (136-145) mmol/L Potassium 3.8 (3.5-5.1) mmol/L Chloride 108 H (98-107) mmol/L Carbon Dioxide 29 (21-32) mmol/L Anion Gap 5 (3-11) BUN 21 (6-23) mg/dl Creatinine 1.11 (0.6-1.2) mg/dl Est Cr Clr Drug Dosing 53.9 ml/min eGFR 54.14 BUN/Creatinine Ratio 18.9 (10-20) Glucose 91 (70-99(Fasting)) mg/dl Calcium 9.6 (8.6-10.3) mg/dl Total Bilirubin 0.5 (0.2-1.0) mg/dl AST 15 (13-39) U/L ALT 10 (7-52) U/L Alkaline Phosphatase 125 H (34-104) U/L Total Protein 6.1 (6.0-8.3) gm/dl Albumin 3.9 (3.4-5.0) gm/dl Globulin 2.2 L (2.5-4.0) gm/dl Albumin/Globulin Ratio 1.8 (0.9-2) Procalcitonin 0.02 (0-0.5) ng/ml Urine Color Cancelled Urine Appearance Cancelled Urine pH Cancelled Ur Specific [place] Cancelled Urine Protein Cancelled Urine Glucose (UA) Cancelled Urine Ketones Cancelled Urine Blood Cancelled Urine Nitrite Cancelled Urine Bilirubin Cancelled Urine Urobilinogen Cancelled Ur Leukocyte Esterase Cancelled Urine WBC (Auto) Cancelled Urine RBC (Auto) Cancelled U Hyaline Cast (Auto) Cancelled U Epithel Cells (Auto) Cancelled Urine Bacteria (Auto) Cancelled Ur Renal Epithelial Cell Cancelled Dave Biurate Crystals Cancelled Calcium Oxalate Crystal Cancelled Leucine Crystals Cancelled Cystine Crystals Cancelled Uric Acid Crystals Cancelled Triple Phos Crystals Cancelled Sulfonamide Crystals Cancelled Cholesterol Crystals Cancelled Talc Crystals Cancelled Tyrosine Crystals Cancelled Hippuric Acid Crystals Cancelled Unidentified Crystals Cancelled Amorphous Sediment Cancelled Epithelial Casts Cancelled Hyaline Casts Cancelled Granular Casts Cancelled Waxy Casts Cancelled RBC Casts Cancelled WBC Casts Cancelled Other Casts Cancelled Urine Mucus Cancelled Urine Other Cancelled Urine Trichomonas Cancelled Urine Yeast Cancelled Urine Sperm Cancelled Ur Oval Fat Bodies Cancelled Urine Comment Cancelled Imaging Data My Impression: I did review the patient's recent CTA of the abdomen/pelvis dated 10/28/2024. MDM Narrative Patient was seen and evaluated as above in room A12. Review was performed of triage nursing notes and vital signs. I did review pertinent previous visits and patient history. After obtaining a thorough history and physical examination the above work up was performed. Patient presents to us today for evaluation of ongoing left flank pain now with associated vomiting and fever status post recent UTI diagnosis on oral cefdinir. Per review of the sensitivities, there are some resistances noted. With the patient's symptoms, she was recommended to come back for further assessment. Upon my exam, patient is well-appearing but tired. Options of care were discussed with the patient. IV access was established. Labs were drawn. I did order IV ceftriaxone for urine coverage based upon review of the culture/sensitivity. Labs reveal leukopenia 4.73. No evidence of kidney or liver failure emergently. I do not believe that repeat imaging at this time is needed. I do believe that further evaluation and management in the inpatient setting is warranted. Case discussed with the hospitalist service. Please refer to further documentation regarding her stay. Patient in agreement with plan. In the evaluation and treatment of this patient the following differential diagnoses were entertained: UTI, pyelonephritis, ureteral obstruction, constipation, bowel obstruction, among others. Impression & Plan Urinary tract infection, Constipation, Abdominal pain Discharge Plan Visit Data Chief Complaint: Abnormal Labs/Diagnostic Testing Stated Complaint: ANTIBIOTICS ED Provider: Rose Jackson ED Midlevel Provider: Charles Adler Discharge Problem: Urinary tract infection, Constipation, Abdominal pain Patient Disposition: Admitted As Inpatient Condition: Good Discharge Instructions Interventions: ED Discharge Assessment Last Done: 10/30/24 20:27
[2024-10-30] MEDS: cefTRIAXone SODIUM 1,000 MG/50 ML BAG IV STA (17:40)
--- NOTE | 2024-10-30 18:25 | History & Physical Report ---
Date of Service October 30, 2024 Assessment & Plan (1) Constipation: (2) Celiac artery stenosis: (3) Dilation of biliary tract: Plan #Abdominal paincould be an amalgamation of severe constipation, celiac artery stenosis, and gastroparesisbut at the same time given how profound her constipation is, we discussed that it may be the main thing driving her symptoms, and the other problems may not actually be bothering her at alland the most practical way to sort this out will be to clear her intestines and see how she feels. ---> Constipation: Given how severe her constipation is, we will start with a GoLytely bowel prep. Goal will be to have her have clear stools to ensure that we have cleared all of the residual constipation. Discussed with her that I would not be surprised if it takes 2 preps given how constipated she appears to be. After that, we will have to put together a degree of an aggressive regimenwe discussed that while she has been on multiple bowel meds in the past, #1, it was at relatively low dosing (especially if you consider Colace to be a placebo as I do), and #2, it is obviously much harder to get ahead of severe constipation rather than to maintain normal bowel habits once you are no longer so backed upand so it is also hard to tell how much the previous dosing might be helping if it was not in the context of "playing from so far behind". Discussed that my best guess would be somewhere in the neighborhood of 34 doses MiraLAX a day +/- some senna. I put her iron on holdif she still needs iron supplementation, consider ferrous gluconate or periodic IV iron so as to minimize constipation. She has oxycodone for painobviously this can also be problematic. ---> GastroparesisI do wonder how much the gastroparesis is part of the cause of the constipation, but I also do wonder once we get her bowels cleared how much she will truly be symptomatic from slow motility if were able to keep her bowels cleared. I did discuss with her while less likely, it is also possible that the profound constipation is simply causing such a back pressure that is slowing peristalsis. Discussed it is more likely that we will clear the constipation and still have a degree of gastroparesis to manage, but that hopefully symptomatically she will be much better --> celiac artery stenosis: Given her symptoms fitting much better with the above 2 differentials, and given that she does not have "pain out of proportion to exam" nor does she ever have bloody diarrhea, I really wonder if this is not just an incidental finding. She has been set up with vascular surgery and I did recommend that she keep this appointment. Lipids recently were decent, checking an A1c, would manage this essentially is asymptomatic vascular disease with med management and secondary risk reduction. In that respect she is already on an aspirin, would consider stopping her Zetia and substituting a moderate intensity statin (such as atorvastatin 40) instead #urinary tract infectionwe discussed that her recurrent UTIs are almost certainly due to the diarrhea (which seems to almost certainly be overflow diarrhea) and it is more than likely that once her pelvic floor is no longer constantly contaminated with E. coli she will suffer far less urinary tract infections. For now ceftriaxone IV mostly because of her GI upset #Common bile duct dilationshe only has very mild" chronic elevation of her alk phos, she has no characteristic symptoms, I suspect this is just residual from her prior cholecystectomy. She does note that she follows actively with GI and they are following this as well. It is reassuring that there are no masses noted on CT. I do not think this relates to her symptoms at all. #Hypertensioncontinue her home losartan and follow numbers. Right now she appears to have a decent volume status and while she is nauseated and we are giving her the bowel prep I will have her on IV LRfollow periodic basic metabolic panel. #Leukopeniafollow but I suspect it relates to her BRIGHT positive (probably SLE) type status. #DV[facility]Lovenox [facility], lives at home with her husbandI anticipate she will be able to be discharged home once she is doing better. History of Present Illness Chief Complaint: Abdominal pain, nausea vomiting Primary Care Provider: Michael King MD patient is a very pleasant 69-year-old female who presents with abdominal pain. She notes that she gets frequent urinary tract infections due to diarrheaand had another UTI. She was seen in the ER and treated for the UTI 2 days ago, but is still having nausea vomiting difficulty keeping p.o. down. She notes has been going on for quite a while and has had a frequent run of urinary tract infections and illness. She has had a rather extensive workup and thus far has been told about biliary ductal dilation (she is status postcholecystectomy and has no right upper quadrant symptoms), gastroparesis (gastric emptying study in July of this year) as well as very slow GI transit. She notes that she tries to manage her constipation with MiraLAX and Colace. As far as MiraLAX dosing it sounds like she takes about 34 g most of the time. She does get a lot of abdominal pain and bloating after eating, but never has bloody diarrhea. Allergies Allergy/AdvReac Type Severity Reaction Status Date / Time rifampin AdvReac Severe cardiac Verified 10/28/24 23:44 arrhythmia + renal failure cephalexin [From Keflex] AdvReac Intermediate Nausea Verified 10/28/24 23:44 Home Medications Medication Instructions Recorded Confirmed Type B-complex with vitamin C 1 cap PO QAM 07/09/21 10/30/24 History magnesium 250 mg tablet 500 mg PO HS 10/10/21 10/30/24 History aspirin 81 mg tablet,delayed 81 mg PO QPM 03/11/22 10/30/24 History release lactobacillus comb no.10 20 20,000 mmu cells PO DAILY 03/11/22 10/30/24 History billion cell capsule (Probiotic) calcium carbonate (Calcium 600) 600 mg PO BID #60 tabs 06/23/22 10/30/24 Rx ferrous sulfate 325 mg (65 mg 325 mg PO QAM 01/20/23 10/30/24 History iron) tablet (Feosol) diclofenac sodium 1 % topical gel 2 g topical QID 07/06/23 10/30/24 History furosemide 40 mg tablet 40 mg PO QAM #90 tabs 01/24/24 10/30/24 Rx allopurinol 300 mg tablet 300 mg PO DAILY #90 tabs 02/23/24 10/30/24 Rx duloxetine 20 mg capsule,delayed 20 mg PO QAM #90 caps 02/23/24 10/30/24 Rx release pantoprazole 40 mg tablet,delayed 40 mg PO DAILY gerd #90 tabs 02/23/24 10/30/24 Rx release hydroxychloroquine 200 mg tablet 200 mg PO BID #180 tabs 02/28/24 10/30/24 Rx verapamil 240 mg 24 hr 240 mg PO QAM #90 caps 04/11/24 10/30/24 Rx capsule,extended release potassium chloride 10 mEq 10 meq PO QAM #90 tabs 05/22/24 10/30/24 Rx tablet,extended release (Klor-Con) atogepant 60 mg tablet (Qulipta) 60 mg PO DAILY 90 days #90 tabs 05/24/24 10/30/24 Rx losartan 100 mg tablet 100 mg PO QAM 08/23/24 10/30/24 History ubrogepant 100 mg tablet (Ubrelvy) 100 mg PO .COMPLEX PRN migraine 08/23/24 10/30/24 Rx headache 90 days #48 tabs lubiprostone 24 mcg capsule 24 mcg PO BID #180 caps 09/05/24 10/30/24 Rx (Amitiza) levothyroxine 100 mcg tablet 100 mcg PO QDL #90 tabs 10/03/24 10/30/24 Rx ezetimibe 10 mg tablet 10 mg PO DAILY 10/17/24 10/30/24 History metoprolol succinate 50 mg 50 mg PO BID #180 tabs 10/17/24 10/30/24 Rx tablet,extended release 24 hr ropinirole 1 mg tablet 2 mg PO HS restless leg(s) 10/17/24 10/30/24 History spironolactone 25 mg tablet 25 mg PO QAM #90 tabs 10/17/24 10/30/24 Rx naratriptan 2.5 mg tablet 2.5 mg PO DIRECTED PRN migraine 10/28/24 10/30/24 History headache cefdinir 300 mg capsule 300 mg PO BID 7 days #14 caps 10/29/24 10/30/24 Rx oxycodone 5 mg tablet 5 mg PO Q8H PRN pain #10 tabs 10/29/24 10/30/24 Rx Past Med/Surg History Problem List Dilation of biliary tract Abnormal computed tomography angiography (CTA) Celiac artery stenosis (Acute) Urinary tract infection (Acute) Left renal artery stenosis (Acute) Acute left flank pain (Acute) Bilateral edema of lower extremity (Acute) Abdominal pain Rectocele Gastroparesis Chest pain (Acute) Elevated alkaline phosphatase level CKD (chronic kidney disease) Chest pain syndrome History of vitamin D deficiency Fecal incontinence Migraine with aura Osteoarthritis of left shoulder Cervical radiculopathy at C7 Cervical spinal stenosis S/P arthroscopy of shoulder Operation Date: 08/12/23 13:35 Actual Procedures p Left Shoulder Arthroscopy, extensive debridement, subacromial Decompression, Distal Clavicle Excision, Chondroplasty of Left Humeral Head, Biceps Tenodesis(Left) - Favian Blevins MD Osteoarthritis Osteoarthritis of left acromioclavicular joint SLAP lesion of left shoulder Impingement of left shoulder Myofascial pain syndrome, cervical Neuralgia Gout Granuloma annulare Chronic rhinitis Complex sleep apnea syndrome Multiple pulmonary nodules Morbid obesity Taking Farxiga for weight loss (no diabetes/prediabetes hx) Upper airway cough syndrome Chronic cough Allergic rhinitis with postnasal drip Exertional shortness of breath Iron deficiency anemia Urinary incontinence Chest pain (Acute) JACOB (obstructive sleep apnea) Constipation Rheumatoid arthritis Paroxysmal SVT (supraventricular tachycardia) (Acute) Leukocytosis (Acute) Chronic venous insufficiency Lumbar radiculopathy Non-restorative sleep PLMD (periodic limb movement disorder) Excessive daytime sleepiness Osteopenia Nephrolithiasis Inflammatory arthritis Hyperlipidemia Elevated antinuclear antibody (BRIGHT) level Spinal stenosis of lumbar region Fatigue Essential tremor Bilateral hands - mild/intermittent Memory deficits Idiopathic peripheral neuropathy Left renal artery stenosis 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 Hypothyroidism Spondylolisthesis at L4-L5 level Generalized pain Restless leg syndrome Seronegative arthritis Presence of cardiac pacemaker RBBB (right bundle branch block) HTN (hypertension) GERD (gastroesophageal reflux disease) CKD (chronic kidney disease), stage III Erosive osteoarthritis (Chronic) Medical History Occlusion of celiac artery History of nephrolithiasis Multiple lung nodules Migraine Left renal artery stenosis Iron deficiency anemia Hypothyroidism Hyperlipidemia HTN (hypertension) History of vitamin D deficiency Gout Exertional shortness of breath Essential tremor Bilateral hands - mild/intermittent Chronic kidney disease (CKD), stage III (moderate) Chronic cough Lumbar stenosis Cervical spinal stenosis Allergic rhinitis Urinary incontinence Superior mesenteric artery stenosis Seronegative arthritis History of right bundle branch block Hx of supraventricular tachycardia s/p pacemaker placement Osteoarthritis Osteopenia Chronic venous insufficiency Hx of leukocytosis Chest pain syndrome 05/2024 >>f/U w/ Dr millard was told "nothing to be concerned about" Trigeminal neuralgia Pre-diabetes Right shoulder tendinitis Muscle spasm Random episodes, possibly r/t RLS but no definitive etiology found per patient Pre-syncope Hx pre-syncopal/syncope episodes r/t autonomic disorder vs vasovagal; improved recently with verapamil/metoprolol dosing adjustments On home O2 2 lpm PRN exertion; "rare" use Hx of orthostatic hypotension Autonomic neuropathy Idiopathic peripheral neuropathy History of recent steroid use [facility] rheumatology visit 07/08/23, "Gout.. Discussed that patient was supposed to taper down on her prednisone. Reduce prednisone to 10 mg for 1 week, then reduce to 5 mg" > patient now back to her baseline of 5mg daily Hx of sepsis 08/2021 ([place]) r/t kidney infection Hx MRSA infection ~2016 in the finger, dx at [facility]. Osteomyelitis- "had surgery to remove" Polymyalgia rheumatica states most recent testing came back negative follows w/ Dr Gomez Chronic daily prednisone- currently at maintenance dose of 2 mg daily- being weaned off Vascular disease Renal artery stenosis, celiac/SMA stenosis- no intervention felt necessary per 02/05/21 vascular note Per patient- seen at [facility] afterwards and felt report was read incorrect and patient has no significant stenosis Sleep apnea Non-compliant with CPAP GERD (gastroesophageal reflux disease) Restless legs syndrome Rheumatoid arthritis Questionable, serum negative Pacemaker Implanted 2018/recurrent syncope secondary to symptomatic bradycardia- last checked ~fall [address] Ricardo Villanueva History of COVID-19 07/2020- no current problems Spondylolysis Hypertension Surgical History Status post arthroscopy of left shoulder (08/12/23) Status post right knee replacement 01/16/22: LMA#5 + PNB. Status post right knee replacement 01/16/22: LMA#5 + PNB Status post placement of other cardiac pacemaker History of lumbar spinal fusion L4-5 fusion/decompression (03/13/22): Grade view 1, MAC#3, ETT 7.0 at [facility] S/P cardiac pacemaker procedure Implanted 2019 ([facility]) History of temporal artery biopsy Interdigital neuroma of foot Hx foot injections (done under anesthesia) History of hand surgery right finger left hand- I&D History of breast biopsy aspiration of cyst from left breast benign History of total abdominal hysterectomy and bilateral salpingo-oophorectomy History of dilatation and curettage History of bilateral tubal ligation History of colonoscopy History of esophagogastroduodenoscopy (EGD) History of cholecystectomy History of tooth extraction Family History Grandmother (Maternal) Family history of diabetes mellitus Father Myocardial infarction Lung cancer Hypertension Mother Acute myocardial infarction Hypertension Other No family history of adverse response to anesthesia Denies family history of Ovarian cancer Breast cancer Colorectal cancer Social History Smoking Status: Never smoker Second Hand Exposure: Yes (parents smoked); Do You Dip or Chew Tobacco: No; Hx Alcohol Use: No Hx Substance Use: No Preferred Language: Prydeinig Communication Ability: Effective Visual Impairment: No Limitations Soil Sampler Required: No Beliefs That Will Affect Care: None marital status: Current Living Situation: Spouse Current Living Situation Comment: at home current occupational status: employed and retired 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 HEENT normocephalic atraumatic mucous membranes moist. Cardio is regular without rubs murmurs gallops. Lungs are clear to auscultation bilaterally no rales rhonchi wheeze with good effort. Abdomen is soft moderately distended mild diffuse tenderness without guarding rebound or rigidity. Extremities without sinus clubbing or edema no calf tenderness. Skin without rashes pallor or icterus. Neuro shows cranial nerves II through XII be grossly intact gross motor and sensory intact. Mental status shows good recent and remote recall normal mood and affect good judgment and insight. Results & Data Results & Data Vital Signs (Past 12 Hours) Vital Signs Temp Pulse Pulse Resp BP BP Pulse Ox 10/30/24 16:22 78 14 138/66 96 10/30/24 15:47 98.1 F 78 20 108/69 98 O2 Del Method 10/30/24 16:22 Room Air 10/30/24 15:47 Room Air Code Status & VTE Plan VTE Prophylaxis Plan VTE Prophylaxis will be ordered: Yes PG Care Time/CCT Total # of Minutes Spent Total Time Spent with Patient: Total time spent is greater than 50% in coordination of care (as documented) at patient's floor/unit and/or counseling patient: Coding Level of Care Code 56772 INT INP/OBS CARE MIN Diagnoses Constipation K59.00 Celiac artery stenosis I77.4 Dilation of biliary tract K83.8
[2024-10-30] MEDS: ACETAMINOPHEN 500 MG TAB PO STA (18:55)
[2024-10-30] MEDS ORDERED: POLYETHYLENE (MIRALAX) 17 GM PACK PO PRN (20:27)
[2024-10-30] MEDS ORDERED: oxyCODONE HCL IR 5 MG TAB (IMMEDIATE RELEASE) PO PRN (20:27)
[2024-10-30] MEDS ORDERED: MAGNESIUM HYDROXIDE SUSP 30 ML UDC PO PRN (20:27)
[2024-10-30] MEDS ORDERED: NON-FORMULARY MEDICATION (Ubrogepant [Ubrelvy] 100 mg tablet) PO PRN (20:27)
[2024-10-30] MEDS ORDERED: NON-FORMULARY MEDICATION (Magnesium 250 mg tablet) PO SCH (21:00)
[2024-10-30] MEDS: LACTATED RINGER'S 1,000 ML IV SCH (21:09)
[2024-10-30] MEDS: ALUMINUM/MAGNESIUM SUSP 30 ML UDC PO PRN (21:15)
[2024-10-30] MEDS: ACETAMINOPHEN 325 MG TAB PO PRN (21:15)
[2024-10-30] MEDS: ASPIRIN 81 MG ECTAB PO SCH (21:15)
[2024-10-30] MEDS: ENOXAPARIN INJ 40 MG/0.4 ML SYR SQ SCH (22:02)
[2024-10-30] MEDS: CALCIUM CARBONATE 1250MG TAB PO SCH (22:03)
[2024-10-30] MEDS: HYDROXYCHLOROQUINE SULFATE 200 MG TAB PO SCH (22:04)
[2024-10-30] MEDS: LUBIPROSTONE 8 MCG CAP PO SCH (22:05)
[2024-10-30] MEDS: METOPROLOL SUCC 50MG EXT REL TAB PO SCH (22:06)
[2024-10-30] MEDS: LAVAGE SOLUTION 4000ML PO ONE (22:06)
[2024-10-30] MEDS: rOPINIRole HCL 2 MG TABLET PO SCH (22:06)
[2024-10-31] MEDS: ONDANSETRON INJ 2 MG/ML 2 ML VIAL IV PRN (01:09)
[2024-10-31] MEDS: LEVOTHYROXINE SODIUM 100 MCG TABLET PO SCH (06:24)
[2024-10-31 07:35] LABS: Basophils # (auto) 0.04 K/uL (0.00-0.20); Basophils % (auto) 0.8 %; Hemoglobin 10.7 g/dl (12.0-16.0); Immature Granulocytes # (auto) 0.06 K/uL (0.01-0.20); Immature Granulocytes % (auto) 1.2 %; Lymphocytes # (auto) 1.08 K/uL (1.20-3.40); Lymphocytes % (auto) 21.7 %; Mean Corpuscular Hemoglobin 30.2 pg (25.0-34.0); Mean Corpuscular Hgb Conc 31.5 g/dL (32.0-36.0); Mean Platelet Volume 11.7 fL (9.4-12.4); Monocytes # (auto) 0.48 K/uL (0.11-0.59); Monocytes % (auto) 9.6 %; Neutrophils # (auto) 3.32 K/uL (1.40-6.50); Neutrophils % (auto) 66.7 %; Platelet Count 156 K/uL (130-400); RDW Coefficient of Variation 13.9 % (11.5-14.5); Red Blood Count 3.54 M/uL (4.20-5.40); White Blood Count 4.98 K/ul (4.8-10.8)
[2024-10-31 08:00] LABS: Calcium 9.9 mg/dl (8.6-10.3); Potassium 3.8 mmol/L (3.5-5.1)
[2024-10-31 08:05] LABS: BUN Creatinine Ratio 18.1 (10-20); Creatinine Clr Calc Pharmacy 56.6 ml/min
[2024-10-31 08:15] LABS: Estimated Average Glucose 103 mg/dl; Hemoglobin A1C 5.2 % (4.5-5.6)
--- NOTE | 2024-10-31 08:41 | Hospitalist Progress Note ---
Date of Service October 31, 2024 Assessment & Plan (1) Constipation: (2) Celiac artery stenosis: (3) Dilation of biliary tract: Plan This is a 61-year-old female who presented on 10/30 for fever and lower abdominal pain. + UCx on 10/28: Sensitive to Rocephin. Continue stay for IV antibiotics for UTI, as well as constipation (improving on 10/31) #Abdominal paincould be an amalgamation of severe constipation, celiac artery stenosis, and gastroparesisbut at the same time given how profound her constipation is, we discussed that it may be the main thing driving her symptoms, and the other problems may not actually be bothering her at alland the most practical way to sort this out will be to clear her intestines and see how she feels. #Constipation: Given how severe her constipation is, we will start with a GoLytely bowel prep. Goal will be to have her have clear stools to ensure that we have cleared all of the residual constipation. Discussed with her that I would not be surprised if it takes 2 preps given how constipated she appears to be. After that, we will have to put together a degree of an aggressive regimenwe discussed that while she has been on multiple bowel meds in the past, #1, it was at relatively low dosing (especially if you consider Colace to be a placebo as I do), and #2, it is obviously much harder to get ahead of severe constipation rather than to maintain normal bowel habits once you are no longer so backed upand so it is also hard to tell how much the previous dosing might be helping if it was not in the context of "playing from so far behind". Discussed that my best guess would be somewhere in the neighborhood of 34 doses MiraLAX a day +/- some senna. I put her iron on holdif she still needs iron supplementation, consider ferrous gluconate or periodic IV iron so as to minimiz e constipation. She has oxycodone for painobviously this can also be problematic. #Gastroparesis: I do wonder how much the gastroparesis is part of the cause of the constipation, but I also do wonder once we get her bowels cleared how much she will truly be symptomatic from slow motility if were able to keep her bowels cleared. I did discuss with her while less likely, it is also possible that the profound constipation is simply causing such a back pressure that is slowing peristalsis. Discussed it is more likely that we will clear the constipation and still have a degree of gastroparesis to manage, but that hopefully symptomatically she will be much better #Celiac artery stenosis: Given her symptoms fitting much better with the above 2 differentials, and given that she does not have "pain out of proportion to exam" nor does she ever have bloody diarrhea, I really wonder if this is not just an incidental finding. She has been set up with vascular surgery and I did recommend that she keep this appointment. Lipids recently were decent, checking an A1c, would manage this essentially is asymptomatic vascular disease with med management and secondary risk reduction. In that respect she is already on an aspirin, would consider stopping her Zetia and substituting a moderate intensity statin (such as atorvastatin 40) instead #Urinary tract infection: we discussed that her recurrent UTIs are almost certainly due to the diarrhea (which seems to almost certainly be overflow diarrhea) and it is more than likely that once her pelvic floor is no longer constantly contaminated with E. coli she will suffer far less urinary tract infections. For now ceftriaxone IV mostly because of her GI upset #Common bile duct dilation: she only has very mild" chronic elevation of her alk phos, she has no characteristic symptoms, I suspect this is just residual from her prior cholecystectomy. She does note that she follows actively with GI and they are following this as well. It is reassuring that there are no masses noted on CT. I do not think this relates to her symptoms at all. #Hypertension: continue her home losartan and follow numbers. Right now she appears to have a decent volume status and while she is nauseated and we are giving her the bowel prep I will have her on IV LRfollow periodic basic metabolic panel. #Arthritic pain: Voltaren gel PRN #Leukopenia: follow but I suspect it relates to her BRIGHT positive (probably SLE) type status. #DVT prophylaxis: Lovenox Dispo: Continued stay on MSO Lives at home with her (note: is also currently in the hospital) Anticipated discharged home once she is doing better - moderate improvement on 10/31 Admission and Anticipated Discharge Date Admission Date: October 30, 2024 Supervising Physician Co-Signing Physician Notes The patient was not seen by me. The chart was reviewed. Case discussed with ARJUN Umana. Agree with assessment and plan Subjective Mrs. Dat cole is in good spirits this morning. She reports she has had "25" bowel movements today, and they are occurring every 10 to 15 minutes. She reports they are brown/liquidy, and occasionally have some mucus at times. She reports her pain is improved from yesterday. At present she has a dull epigastric pain that she rates a 2 out of 10. Additionally, she has intermittent, aching pain in the left flank and lower back that occurs every 10 to 20 minutes. Other than this, she reports she is doing much better than yesterday. ROS: Patient endorses cold intolerance, potential fever last night, epigastric pain, left flank and lower back pain, and ongoing diarrhea. Patient denies chest pain, chest palpitations, headache, lightheadedness, SOB, nausea/vomiting, blood in the urine or stool, black stool, or numbness tingling in arms or legs. Review of Systems Review of Systems: See HPI above Physical Exam Physical Exam: General: no acute distress; pleasant affect; non-toxic appearing; cooperative; SpO2 97% on RA HEENT: normocephalic, atraumatic; no scleral icterus; PERRLA; vision and hearing grossly intact Neck: supple; no lymphadenopathy; trachea midline Skin: Potential lipomas under the skin fold of the left elbow; NTP; skin is warm, dry without signs of tenting; no cyanosis; no open lesions appreciated CV: chest wall NTP; RRR; S1/S2 normal; no murmurs/rubs/gallops; pulses intact and symmetric at radial, DP, and PT Lungs: no acute respiratory distress; symmetrical chest wall expansion; clear breath sounds across all lung naik w/o adventitious sounds; no wheezing ABD: Soft, mildly TTP in the epigastric region; BS present; no rebound/guarding; no distention; left flank is mildly TTP Back: Left lower back is TTP MSK: Arthritic changes noticed in the hands bilaterally; no tics or fasciculations; +2 pitting edema noted in the LEs b/l, nonerythematous Neuro: A&Ox3; normal mood and affect; fluent speech; no focal deficits; sensation grossly intact in the LEs b/l Results & Data Results & Data Vital Signs (Past 12 Hours) Vital Signs Temp Pulse Resp BP Pulse Ox O2 Del Method 10/31/24 07:42 36.5 C 60 18 128/57 L 99 Room Air 10/30/24 22:33 36.7 C 79 20 145/75 H 95 Room Air PG Care Time/CCT Total # of Minutes Spent Total Time Spent with Patient: Total time spent is greater than 50% in coordination of care (as documented) at patient's floor/unit and/or counseling patient: Coding [place] [address] SUB INP/OBS CARE 2/35MIN Patient Type Established Medical Decision Making Moderate Complexity Diagnoses Constipation K59.00 Celiac artery stenosis I77.4 Dilation of biliary tract K83.8
[2024-10-31] MEDS: DULoxetine HCL 20 MG CAP PO SCH (09:00)
[2024-10-31] MEDS: ADVANCED PROBIOTIC 625 MG CAPSULE PO SCH (09:00)
[2024-10-31] MEDS: SPIRONOLACTONE 25 MG TAB PO SCH (09:00)
[2024-10-31] MEDS: FUROSEMIDE 40 MG TAB PO SCH (09:00)
[2024-10-31] MEDS: VITAMIN B COMPLEX TAB PO SCH (09:01)
[2024-10-31] MEDS: VERAPAMIL HCL 240 MG TABCR PO SCH (09:01)
[2024-10-31] MEDS: EZETIMIBE 10 MG TAB PO SCH (09:01)
[2024-10-31] MEDS: LOSARTAN POTASSIUM 50 MG TAB PO SCH (09:01)
[2024-10-31] MEDS: PANTOprazole 40 MG TAB PO SCH (09:01)
[2024-10-31] MEDS: allopurinoL 300 MG TAB PO SCH (09:03)
[2024-10-31] MEDS: POTASSIUM CHLORIDE 10 MEQ TABCR PO SCH (09:13)
[2024-10-31] MEDS: cefTRIAXone SODIUM 2,000 MG/50 ML BAG IV SCH (16:40)
[2024-10-31] MEDS: ATOGEPANT (QULIPTA) 60 MG TAB PO SCH (16:41)
[2024-10-31] MEDS: MELATONIN 3 MG TAB PO PRN (19:53)
[2024-11-01 07:12] VITALS: BP 120/72; PULSE 64; RESP 18; TEMP 97.5; O2SAT 99
[2024-11-01] MEDS: dilTIAZem HCL 240 MG CAPCR PO SCH (10:14)
[2024-11-01] MEDS: DICLOFENAC SOD 1% GEL 100 GM TUBE EXT PRN (10:14)
--- NOTE | 2024-11-01 11:02 | Discharge Summary ---
Date of Service November 01, 2024 Admission HPI Per Admitting Provider patient is a very pleasant 69-year-old female who presents with abdominal pain. She notes that she gets frequent urinary tract infections due to diarrheaand had another UTI. She was seen in the ER and treated for the UTI 2 days ago, but is still having nausea vomiting difficulty keeping p.o. down. She notes has been going on for quite a while and has had a frequent run of urinary tract infections and illness. She has had a rather extensive workup and thus far has been told about biliary ductal dilation (she is status postcholecystectomy and has no right upper quadrant symptoms), gastroparesis (gastric emptying study in July of this year) as well as very slow GI transit. She notes that she tries to manage her constipation with MiraLAX and Colace. As far as MiraLAX dosing it sounds like she takes about 34 g most of the time. She does get a lot of abdominal pain and bloating after eating, but never has bloody diarrhea. Specialty Data Hospitalist Discharge Diagnosis: 1. Abdominal pain 2. Constipation 3. Gastroparesis Discharge exam: Vital Signs Temp Pulse Resp BP Pulse Ox O2 Del Method 11/01/24 07:10 36.4 C L 64 18 120/72 99 Room Air 10/31/24 19:41 36.5 C 75 22 109/65 96 Room Air 10/31/24 15:00 36.3 C L 61 16 106/52 L 97 Room Air GENERAL: 69 yo obese WF. A&Ox3. No distress. LUNGS: Clear to auscultation bilaterally. No W/R/R. CARDIOVASCULAR: Regular rate and rhythm. ABDOMEN: Soft, non-tender and non-distended. BS hypoactive x 4 quad. EXTREMITIES: +1 b/l LE edema. Non-tender. Peripheral pulses +2/4. PSYCHIATRIC: Cooperative. Appropriate mood and affect. SKIN: Warm, dry, intact. No rashes or lesions. Discharge Data Procedures Performed 10/31/24 07:03 10/31/24 07:03 EXAM: CT Angiography Abdomen and Pelvis Without and With Intravenous Contrast CLINICAL HISTORY: Reason for exam: upper and left sided pain. TECHNIQUE: Axial computed tomographic angiography images of the abdomen and pelvis without and with intravenous contrast. Automated exposure control was utilized for the study. A dose lowering technique was utilized adhering to the principles of ALARA. MIP reconstructed images were created and reviewed. CONTRAST: Patient received OPTIRAY 320 120ML of IV contrast COMPARISON: 09/10/2024. FINDINGS: VASCULATURE: Aorta: There are atherosclerotic changes. No abdominal aortic aneurysm. No dissection. Celiac trunk and mesenteric arteries: There are atherosclerotic changes. There is a high-grade stenosis noted the origin of the celiac axis. The origins of the SMA and SHOSHANA are unremarkable.. Renal arteries: There are atherosclerotic changes. There is a moderate stenosis noted at the origin of the left renal artery.. Iliac arteries: There are atherosclerotic changes. No occlusion or significant stenosis. Lung bases: No consolidation. ABDOMEN: Liver: No mass. Gallbladder and bile ducts: The patient is status post cholecystectomy.. The common bile duct is dilated at 16 mm. There are some mild intrahepatic biliary ductal dilatation. There are No ductal dilation. Pancreas: No ductal dilation. No mass. Spleen: No splenomegaly. Adrenals: No mass. Kidneys and ureters: There is a 6 mm left renal calcification.. No hydronephrosis. No solid mass. Stomach and bowel: There are retained foodstuffs within the stomach. The colon is distended containing a moderate to large amount of stool. There are diverticula present on the colon. No significant inflammatory changes are seen PELVIS: Appendix: No findings to suggest acute appendicitis. Bladder: No calculi are noted within the bladder.. Reproductive: The patient appears to be status post hysterectomy.. ABDOMEN and PELVIS: Intraperitoneal space: No significant fluid collection. No free air. Bones/joints: There are degenerative and postoperative changes involving the spine.. Soft tissues: Unremarkable. Lymph nodes: No enlarged lymph nodes. IMPRESSION: There is a 6 mm left renal calcification without evidence of hydronephrosis. No evidence of abdominal aortic aneurysm or dissection. There is a high-grade stenosis noted the origin of the celiac axis. There is a moderate stenosis noted at the origin of the left renal artery. . Diverticulosis. The patient is status post cholecystectomy. There is some biliary ductal dilatation. Electronically signed by: Oneil Burkett MD 10/28/24 23:53 PM Urine Culture Final 10/30/24-0838 Organism 1 Escherichia coli [place] Count >100,000 CFU/ml Sens Sensitivities to Follow E coli RX M.I.C. --- --------- Amikacin S <=16 Amox/Clav I 16/8 Ampicillin R >16 Amp/Sul R >16/8 Cefazolin S 8 Cefazolin R Cefepime S <=2 Cefotaxime S <=2 Cefoxitin S <=8 Ceftriaxone S <=1 Cefuroxime S <=4 Ciprofloxacin S <=0.25 Ertapenem S <=0.5 Gentamicin R >8 Levofloxacin S <=0.5 Meropenem S <=1 Nitrofurantoin S <=32 Tobramycin R 8 Trimeth/Sulfa R > Pip/Tazo S <=8 Escherichia coli: Negative KISHA 56 Complicated UTI Interpretations S = SENSITIVE I = INTERMEDIATE R = RESISTANT Hospital Course (1) Constipation: (2) Celiac artery stenosis: (3) Dilation of biliary tract: Plan This is a 61-year-old female who presented on 10/30 for fever and lower abdominal pain. + UCx on 10/28: Sensitive to Rocephin. Continue stay for IV antibiotics for UTI, as well as constipation (improving on 10/31) #Abdominal paincould be an amalgamation of severe constipation, celiac artery stenosis, and gastroparesisbut at the same time given how profound her constipation is, we discussed that it may be the main thing driving her symptoms, and the other problems may not actually be bothering her at alland the most practical way to sort this out will be to clear her intestines and see how she feels. #Constipation: Given how severe her constipation is, we will start with a GoLytely bowel prep. Goal will be to have her have clear stools to ensure that we have cleared all of the residual constipation. Discussed with her that I would not be surprised if it takes 2 preps given how constipated she appears to be. After that, we will have to put together a degree of an aggressive regimenwe discussed that while she has been on multiple bowel meds in the past, #1, it was at relatively low dosing and #2, it is obviously much harder to get ahead of severe constipation rather than to maintain normal bowel habits once you are no longer so backed upand so it is also hard to tell how much the previous dosing might be helping if it was not in the context of "playing from so far behind". Discussed that my best guess would be somewhere in the neighborhood of 34 doses MiraLAX a day +/- some senna. I put her iron on holdif she still needs iron supplementation, consider ferrous gluconate or periodic IV iron so as to minimize constipation. She has oxycodone for painobviously this can also be problematic. #Gastroparesis: I do wonder how much the gastroparesis is part of the cause of the constipation, but I also do wonder once we get her bowels cleared how much she will truly be symptomatic from slow motility if were able to keep her bowels cleared. I did discuss with her while less likely, it is also possible that the profound constipation is simply causing such a back pressure that is slowing peristalsis. Discussed it is more likely that we will clear the constipation and still have a degree of gastroparesis to manage, but that hopefully symptomatically she will be much better #Celiac artery stenosis: Given her symptoms fitting much better with the above 2 differentials, and given that she does not have "pain out of proportion to exam" nor does she ever have bloody diarrhea, I really wonder if this is not just an incidental finding. She has been set up with vascular surgery and I did recommend that she keep this appointment. Lipids recently were decent, checking an A1c, would manage this essentially is asymptomatic vascular disease with med management and secondary risk reduction. In that respect she is already on an aspirin, would consider stopping her Zetia and substituting a moderate intensity statin (such as atorvastatin 40) instead. This can be deferred and decided by PCP. #Urinary tract infection: we discussed that her recurrent UTIs are almost certainly due to the diarrhea (which seems to almost certainly be overflow diarrhea) and it is more than likely that once her pelvic floor is no longer constantly contaminated with E. coli she will suffer far less urinary tract infections. Complete course of cefdinir 300mg BIDx4 days as outpatient. #Common bile duct dilation: she only has very mild" chronic elevation of her alk phos, she has no characteristic symptoms, I suspect this is just residual from her prior cholecystectomy. She does note that she follows actively with GI and they are following this as well. It is reassuring that there are no masses noted on CT. I do not think this relates to her symptoms at all. #Hypertension: continue her home losartan and follow numbers. Right now she appears to have a decent volume status and while she is nauseated and we are giving her the bowel prep I will have her on IV LRfollow periodic basic metabolic panel. #Arthritic pain: Voltaren gel PRN #Leukopenia: follow but I suspect it relates to her BRIGHT positive (probably SLE) type status. Patient is medically and hemodynamically stable for discharge home. She has had significant symptomatic improvement and is now moving her bowels, no further abd pain. She will be discharged home on bowel regimen which can be titrated based on response. Follow up with GI as scheduled as well as with specialist in [place] as arranged by GI. F/u with PCP within 1 week of discharge or sooner if needed. Plan of care has been d/w Dr. Klein who is in agreement. Total time for discharge: 35 minutes Supervising Physician Co-Signing Physician Notes The patient was not seen by me. The chart was reviewed. Case discussed with ARJUN Ash. Agree with assessment and plan Coding Level of Care Code 33070 INP/OBS DISCH >30 MIN Diagnoses Constipation K59.00 Celiac artery stenosis I77.4 Dilation of biliary tract K83.8
== END 2024-11-01 12:47 | disposition home or self-care (01) | DRG 392 ==
LOC: ED 15:44 → INTOOBSV 18:10 → EDINP 18:10 → SUATTDRO 18:10 → 3N 20:27

== ENCOUNTER 2024-11-15 13:05 | Observation (INO) ==
--- NOTE | 2024-11-15 14:33 | Emergency Department Note ---
Impression & Plan Lumbar radiculopathy, Low back pain ED Provider Note CHIEF COMPLAINT: Low back pain, right leg pain, weakness, numbness HISTORY OF PRESENT ILLNESS: This 69-year-old female patient presents to the emergency department via private vehicle for evaluation of low back pain which radiates into the right leg. The patient reports weakness and numbness of the right lower extremity. She states there is numbness in her groin and she is having difficulty lifting the leg without using her arms to lift up the leg to move it. She states that she does have chronic back pain and had spinal surgery about 4 years ago at [facility]. She states there was no new injury or trauma. She denies any recent falls. She states she has been hospitalized several times over the past few weeks due to urinary tract infections and gastroparesis with slow motility. She states that she did see her PCP 2 days ago for the back pain and saw her clock and watch hands painter earlier today who referred her to a "lupus specialist" in [place] due to concern with difficulty diagnosing lupus at this time. The patient states that the PCP did not really address the back pain, but notes she is hesitant to provide her with narcotic analgesics due to her history of slow motility. She had not had a bowel movement in about 2 weeks. She states she did have a bowel movement yesterday and reports some diarrhea at that time. The patient does have chronic incontinence. She denies any change in this. She denies any recent fever or illness. She is having difficulty getting around due to inability to lift the leg. She rates her pain 10/10. History provided by: Patient REVIEW OF SYSTEMS: A 10 system review of systems was performed with positives and pertinent negatives listed in the history of present illness. All other systems were reviewed and are negative. ALLERGIES: Keflex, rifampin PHYSICAL EXAM: VITALS: Vitals are noted on the nurse's note and reviewed by myself. GENERAL: This is a 69-year-old female, in no acute distress, nondiaphoretic, well-developed well-nourished. SKIN: Rash on bilateral anterior arms which is erythematous and patchy. The skin was without rashes, erythema, edema, or bruising. There is no tenting of the skin. Capillary refill less than 2 seconds. HEAD: Normocephalic atraumatic. MOUTH: Mucous membranes moist. Airway patent. NECK: Supple without nuchal rigidity. No lymphadenopathy. Cervical spine is nontender. No JVD. HEART: Regular rate and rhythm without murmurs gallops or rubs. LUNGS: Clear to auscultation bilaterally without wheezes, rales or rhonchi. No retractions or accessory muscle use. ABDOMEN: Positive bowel sounds x 4. Left lower quadrant tenderness to palpation. Abdomen is otherwise soft, nontender, without masses or organomegaly. Glover sign negative. No guarding or rebound tenderness. MUSCULOSKELETAL: No muscle atrophy, erythema, or edema noted. Significant tenderness over all lumbar and sacral vertebrae and paraspinous muscles bilaterally. Decreased range of motion of the right lower extremity. Decreased ability to flex at the right hip. Weakness of the right lower extremity compared to the left lower extremity. NEURO: Patient was alert and oriented to person place and time. Decreased sensation in the right inner thigh when compared to the left inner thigh. Deep tendon reflexes 2+ throughout. An order was placed for continuous cardiac catheterization technician. The monitor showed a normal sinus rhythm at a ventricular rate of 64 bpm, per my interpretation. Imaging as interpreted by myself and the radiologist revealed scoliosis and anterolisthesis at L4-L5 and fusion at this level with degenerative disc disease, with radiologist interpretation as above. I agree with the radiologist's findings as based upon my independent interpretation. EMERGENCY DEPARTMENT COURSE: The patient was evaluated as above. The patient presents for low back pain with radicular symptoms into the right lower extremity. The patient does have known back problems and has had prior fusion at L4-L5, but is complaining of some decreased sensation and weakness in the right lower extremity which is new as of Wednesday. Given the symptoms, I am concerned for possible nerve impingement and did recommend MRI to evaluate the symptoms. Unfortunately, I did receive a message after the order was placed that the MRI would not be able to be completed until tomorrow, as the from the MRI department MRI nurse will not be available to place the patient's pacemaker in MRI mode. Case was discussed with the attending physician. IV access was obtained, labs were drawn. Labs with mild leukocytosis of 11.19. No concerning anemia or thrombocytopenia. Renal, hepatic function and electrolytes without significant abnormality. Patient was medicated with IV morphine, dexamethasone, and Zofran. Ambulatory trial with a walker to the bathroom was concerning that the patient's right leg was "giving out" on her. The patient continued to complain of severe pain in her low back as well as the right lower extremity during the ambulatory trial. She was able to bear some weight. Urinalysis negative for blood or evidence of infection. I discussed options of care with the patient at bedside. She is continued complain of severe pain. She was medicated with a repeat dose of morphine and Zofran. The patient is not comfortable going home given her symptoms. I am concerned given her weakness and sensation changes in the right lower extremity that there could be an underlying disc or nerve impingement. I do feel that admission/observation for pain control and monitoring while awaiting MRI is reasonable. The patient was agreeable. I discussed the case with Dr. Ardon, [facility] hospitalist physician. She was agreeable with this plan. Please see hospitalist dictation regarding ongoing management and final disposition of this patient. This visit is during a period of high volume and high acuity in the emergency department. I attest that I have personally reviewed the patient medication list. I attest that I have reviewed the patient's blood pressure and it was found to be normal GCS: 15 In the evaluation and treatment of this patient the following differential diagnoses were entertained: Musculoskeletal, disc herniation, fracture, metastatic disease, cord compression, discitis, sciatica, cauda equina, infection, aortic disease, renal colic, gastrointestinal, as well as other pathologies. The chart was completed utilizing [employer] Speech voice recognition software. Grammatical errors, random word insertions, pronoun errors, and incomplete sentences are an occasional consequence of this system due to software limitations, ambient noise, and hardware issues. Any formal questions or concerns about the content, text, or information contained within the body of this dictation should be directly addressed to the provider for clarification. Past Med/Surg History Problem List (Updated 11/15/24 @ 20:35 by Dang Dan PA-C) Acute back pain Rash (Acute) Allergic reaction (Acute) Dilation of biliary tract Abnormal computed tomography angiography (CTA) Urinary tract infection (Acute) Abdominal pain (Acute) Rectocele Gastroparesis Chest pain (Acute) Elevated alkaline phosphatase level CKD (chronic kidney disease) Chest pain syndrome History of vitamin D deficiency Fecal incontinence Migraine with aura Osteoarthritis of left shoulder Cervical radiculopathy at C7 Cervical spinal stenosis S/P arthroscopy of shoulder Operation Date: 08/12/23 13:35 Actual Procedures p Left Shoulder Arthroscopy, extensive debridement, subacromial Decompression, Distal Clavicle Excision, Chondroplasty of Left Humeral Head, Biceps Tenodesis(Left) - Favian Blevins MD Osteoarthritis Osteoarthritis of left acromioclavicular joint SLAP lesion of left shoulder Impingement of left shoulder Myofascial pain syndrome, cervical Neuralgia Gout Granuloma annulare Chronic rhinitis Complex sleep apnea syndrome Multiple pulmonary nodules Morbid obesity Taking Farxiga for weight loss (no diabetes/prediabetes hx) Upper airway cough syndrome Chronic cough Allergic rhinitis with postnasal drip Exertional shortness of breath Iron deficiency anemia Urinary incontinence Chest pain (Acute) JACOB (obstructive sleep apnea) Constipation (Acute) Rheumatoid arthritis Paroxysmal SVT (supraventricular tachycardia) (Acute) Leukocytosis (Acute) Chronic venous insufficiency Lumbar radiculopathy Non-restorative sleep PLMD (periodic limb movement disorder) Excessive daytime sleepiness Osteopenia Nephrolithiasis Inflammatory arthritis Hyperlipidemia Elevated antinuclear antibody (BRIGHT) level Spinal stenosis of lumbar region Fatigue Essential tremor Bilateral hands - mild/intermittent Memory deficits Idiopathic peripheral neuropathy Left renal artery stenosis 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 Hypothyroidism Spondylolisthesis at L4-L5 level Generalized pain Restless leg syndrome Seronegative arthritis Presence of cardiac pacemaker RBBB (right bundle branch block) HTN (hypertension) GERD (gastroesophageal reflux disease) CKD (chronic kidney disease), stage III Erosive osteoarthritis (Chronic) Medical History Occlusion of celiac artery History of nephrolithiasis Multiple lung nodules Migraine Left renal artery stenosis Iron deficiency anemia Hypothyroidism Hyperlipidemia HTN (hypertension) History of vitamin D deficiency Gout Exertional shortness of breath Essential tremor Bilateral hands - mild/intermittent Chronic kidney disease (CKD), stage III (moderate) Chronic cough Lumbar stenosis Cervical spinal stenosis Allergic rhinitis Urinary incontinence Superior mesenteric artery stenosis Seronegative arthritis History of right bundle branch block Hx of supraventricular tachycardia s/p pacemaker placement Osteoarthritis Osteopenia Chronic venous insufficiency Hx of leukocytosis Chest pain syndrome 05/2024 >>f/U w/ Dr millard was told "nothing to be concerned about" Trigeminal neuralgia Pre-diabetes Right shoulder tendinitis Muscle spasm Random episodes, possibly r/t RLS but no definitive etiology found per patient Pre-syncope Hx pre-syncopal/syncope episodes r/t autonomic disorder vs vasovagal; improved recently with verapamil/metoprolol dosing adjustments On home O2 2 lpm PRN exertion; "rare" use Hx of orthostatic hypotension Autonomic neuropathy Idiopathic peripheral neuropathy History of recent steroid use [facility] [place] visit 07/08/23, "Gout.. Discussed that patient was supposed to taper down on her prednisone. Reduce prednisone to 10 mg for 1 week, then reduce to 5 mg" > patient now back to her baseline of 5mg daily Hx of [place]2021 ([place]) r/t kidney infection Hx MRSA infection ~2016 in the finger, dx at [facility]. Osteomyelitis- "had surgery to remove" Polymyalgia rheumatica states most recent testing came back negative follows w/ Dr Gomez Chronic daily prednisone- currently at maintenance dose of 2 mg daily- being weaned off Vascular disease Renal artery stenosis, celiac/SMA stenosis- no intervention felt necessary per 02/05/21 vascular note Per patient- seen at [facility] afterwards and felt report was read incorrect and patient has no significant stenosis Sleep apnea Non-compliant with CPAP GERD (gastroesophageal reflux disease) Restless legs syndrome Rheumatoid arthritis Questionable, serum negative Pacemaker Implanted 2018/recurrent syncope secondary to symptomatic bradycardia- last checked ~fall [address] Ricardo Villanueva History of COVID-19 07/2020- no current problems Spondylolysis Hypertension Surgical History Status post arthroscopy of left shoulder (08/12/23) Status post right knee replacement 01/16/22: LMA#5 + PNB. Status post right knee replacement 01/16/22: LMA#5 + PNB Status post placement of other cardiac pacemaker History of lumbar spinal fusion L4-5 fusion/decompression (03/13/22): Grade view 1, MAC#3, ETT 7.0 at [facility] S/P cardiac pacemaker procedure Implanted 2019 ([facility]) History of temporal artery biopsy Interdigital neuroma of foot Hx foot injections (done under anesthesia) History of hand surgery right finger left hand- I&D History of breast biopsy aspiration of cyst from left breast benign History of total abdominal hysterectomy and bilateral salpingo-oophorectomy History of dilatation and curettage History of bilateral tubal ligation History of colonoscopy History of esophagogastroduodenoscopy (EGD) History of cholecystectomy History of tooth extraction Family History Grandmother (Maternal) Family history of diabetes mellitus Father Myocardial infarction Lung cancer Hypertension Mother Acute myocardial infarction Hypertension Other No family history of adverse response to anesthesia Denies family history of Ovarian cancer Breast cancer Colorectal cancer Social History Smoking Status: Never smoker Second Hand Exposure: Yes (parents smoked); Do You Dip or Chew Tobacco: No; Hx Alcohol Use: No Hx Substance Use: No Preferred Language: Yakut Communication Ability: Effective Visual Impairment: No Limitations Manager Advanced Required: No Beliefs That Will Affect Care: None marital status: Current Living Situation: Spouse Current Living Situation Comment: at home current occupational status: employed and retired 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, 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 How many Children do You have: 2 Feels Safe at Home: Yes Childhood Exposure to Second-Hand Smoke: Yes Diet: other Diet Comment: low dairy caffeine: Yes during the past year weight has: increased > 10 lbs Dental Care, Regularly: Yes Physical Activity Frequency: Daily Seatbelt Use: always Assistive Devices: Cane Allergies Allergies Allergy/AdvReac Type Severity Reaction Status Date / Time rifampin AdvReac Severe cardiac Verified 11/15/24 19:08 arrhythmia + renal failure cephalexin [From Keflex] AdvReac Intermediate Nausea Verified 11/15/24 19:08 Home Meds Home Medications Medication Instructions Recorded Confirmed B-complex with vitamin C 1 cap PO QAM 07/09/21 11/15/24 magnesium 250 mg tablet 500 mg PO HS 10/10/21 11/15/24 aspirin 81 mg tablet,delayed 81 mg PO QPM 03/11/22 11/15/24 release lactobacillus comb no.10 20 20,000 mmu cells PO DAILY 03/11/22 11/15/24 billion cell capsule (Probiotic) diclofenac sodium 1 % topical gel 2 g topical QID 07/06/23 11/15/24 ropinirole 1 mg tablet 2 mg PO HS restless leg(s) 10/17/24 11/15/24 naratriptan 2.5 mg tablet 2.5 mg PO DIRECTED PRN migraine 10/28/24 11/15/24 headache famotidine 20 mg tablet 20 mg PO BID 11/15/24 11/15/24 Previous Rx's Medication Instructions Recorded calcium carbonate (Calcium 600) 600 mg PO BID #60 tabs 06/23/22 furosemide 40 mg tablet 40 mg PO QAM #90 tabs 01/24/24 allopurinol 300 mg tablet 300 mg PO DAILY #90 tabs 02/23/24 duloxetine 20 mg capsule,delayed 20 mg PO QAM #90 caps 02/23/24 release pantoprazole 40 mg tablet,delayed 40 mg PO DAILY gerd #90 tabs 02/23/24 release hydroxychloroquine 200 mg tablet 200 mg PO BID #180 tabs 02/28/24 potassium chloride 10 mEq 10 meq PO QAM #90 tabs 05/22/24 tablet,extended release (Klor-Con) atogepant 60 mg tablet (Qulipta) 60 mg PO DAILY 90 days #90 tabs 05/24/24 ubrogepant 100 mg tablet (Ubrelvy) 100 mg PO .COMPLEX PRN migraine 08/23/24 headache 90 days #48 tabs lubiprostone 24 mcg capsule 24 mcg PO BID #180 caps 09/05/24 (Amitiza) metoprolol succinate 50 mg 50 mg PO BID #180 tabs 10/17/24 tablet,extended release 24 hr spironolactone 25 mg tablet 25 mg PO QAM #90 tabs 10/17/24 oxycodone 5 mg tablet 5 mg PO Q8H PRN pain #10 tabs 10/29/24 diltiazem HCl 240 mg 240 mg PO DAILY #30 caps 11/01/24 capsule,extended release 24 hr polyethylene glycol 3350 17 gram 17 g PO BID #100 ea 11/01/24 oral powder packet (Miralax) sennosides 8.6 mg-docusate sodium 2 tab-cap (2 x 8.6-50 mg) PO HS 11/01/24 50 mg tablet (Senna with Docusate #60 tabs Sodium) amoxicillin 500 mg tablet 2,000 mg (4 x 500 mg) PO ONCE #32 11/02/24 tabs levothyroxine 100 mcg tablet 100 mcg PO QDL #90 tabs 11/02/24 losartan 100 mg tablet 100 mg PO QAM #90 tabs 11/13/24 Results & Data (ED) Vital Signs Vital Signs - 24 hr 11/15/24 13:08 11/15/24 14:48 11/15/24 14:48 Temperature 37 C Temperature Source Temporal Artery Scan Pulse Rate 90 Pulse Rate [Finger] 60 Pulse Rhythm [Finger] Pulse Strength [Finger] Respiratory Rate 28 H 16 Respiratory Effort / Characteristics Splinting (from pain) Non-Labored Spontaneous Respiratory Depth Shallow Normal Respiratory Pattern Regular Blood Pressure 111/53 L Blood Pressure [Right Arm] 112/63 Blood Pressure Mean 72 Blood Pressure Mean [Right Arm] 79 Blood Pressure Position [Right Arm] Lying Pulse Oximetry 99 99 100 Oxygen Delivery Method Room Air Room Air Room Air Sepsis Recent Fever Within 48 Hours No Sepsis New/Unexplained Change in Mental Status No Sepsis Action Taken by Nursing No Action Required 11/15/24 17:00 11/15/24 19:34 Temperature Temperature Source Pulse Rate Pulse Rate [Finger] 62 64 Pulse Rhythm [Finger] Regular Pulse Strength [Finger] Normal Respiratory Rate 17 14 Respiratory Effort / Characteristics Non-Labored Spontaneous Non-Labored Spontaneous Respiratory Depth Normal Normal Respiratory Pattern Regular Blood Pressure Blood Pressure [Right Arm] 106/49 L 120/50 L Blood Pressure Mean Blood Pressure Mean [Right Arm] 68 73 Blood Pressure Position [Right Arm] Lying Pulse Oximetry 97 100 Oxygen Delivery Method Room Air Room Air Sepsis Recent Fever Within 48 Hours Sepsis New/Unexplained Change in Mental Status Sepsis Action Taken by Nursing Laboratory Data 11/15/24 14:40 11/15/24 14:40 Lab Results 11/15/24 11/15/24 Range/Units 14:40 Unknown WBC 11.19 H (4.8-10.8) K/ul RBC 4.34 (4.20-5.40) M/uL Hgb 13.0 (12.0-16.0) g/dl Hct 41.5 (37.0-47.0) % MCV 95.6 (80.0-100.0) fL MCH 30.0 (25.0-34.0) pg MCHC 31.3 L (32.0-36.0) g/dL RDW Std Deviation 50.1 H (36.4-46.3) fL RDW Coeff of Rowdy 14.5 (11.5-14.5) % Plt Count 214 (130-400) K/uL MPV 11.3 (9.4-12.4) fL Immature Gran % (Auto) 1.3 % Neut % (Auto) 75.8 % Lymph % (Auto) 9.8 % [place] % (Auto) 11.3 % Eos % (Auto) 1.4 % Baso % (Auto) 0.4 % Neut # (Auto) 8.49 H (1.40-6.50) K/uL Lymph # (Auto) 1.10 L (1.20-3.40) K/uL [place] # (Auto) 1.26 H (0.11-0.59) K/uL Eos # (Auto) 0.16 (0.00-0.50) K/uL Baso # (Auto) 0.04 (0.00-0.20) K/uL Immature Gran # (Auto) 0.14 (0.01-0.20) K/uL Sodium 140 (136-145) mmol/L Potassium 4.2 (3.5-5.1) mmol/L Chloride 102 (98-107) mmol/L Carbon Dioxide 31 (21-32) mmol/L Anion Gap 7 (3-11) BUN 23 (6-23) mg/dl Creatinine 1.19 (0.6-1.2) mg/dl Est Cr Clr Drug Dosing Not Reportable eGFR 49.80 BUN/Creatinine Ratio 19.3 (10-20) Glucose 71 (70-99(Fasting)) mg/dl Calcium 9.7 (8.6-10.3) mg/dl Total Bilirubin 0.7 (0.2-1.0) mg/dl AST 16 (13-39) U/L ALT 16 (7-52) U/L Alkaline Phosphatase 138 H (34-104) U/L Total Protein 6.8 (6.0-8.3) gm/dl Albumin 4.3 (3.4-5.0) gm/dl Globulin 2.5 (2.5-4.0) gm/dl Albumin/Globulin Ratio 1.7 (0.9-2) Urine Color Yellow Urine Appearance Clear (Clear) Urine pH 7.0 (4.5-7.5) Ur Specific Turrell 1.010 (1.000-1.030) Urine Protein Negative (Negative) Urine Glucose (UA) Negative (Negative) Urine Ketones Negative (Negative) Urine Blood Negative (Negative) Urine Nitrite Negative (Negative) Urine Bilirubin Negative (Negative) Urine Urobilinogen Negative (Negative) Ur Leukocyte Esterase Negative (Negative) Urine Comment Administered Medications Discontinued Medications Dexamethasone Sodium Phosphate (DexamethasonePf 10 Mg/Ml Vial) 10 mg IV NOW ONE Stop: 11/15/24 15:21 Last Admin: 11/15/24 15:46 Dose: 10 mg Documented By: MATT Morphine Sulfate (Morphine Sulfate 4 Mg/Ml 1 Ml Carp\\Vial) 4 mg IV NOW STA Stop: 11/15/24 14:22 Last Admin: 11/15/24 14:45 Dose: 4 mg Documented By: KOMAL Morphine Sulfate (Morphine Sulfate 4 Mg/Ml 1 Ml Carp\\Vial) 4 mg IV NOW STA Stop: 11/15/24 16:14 Last Admin: 11/15/24 16:18 Dose: 4 mg Documented By: SARAH Ondansetron HCl (Ondansetron Inj 2 Mg/Ml 2 Ml Vial) 4 mg IV NOW STA Stop: 11/15/24 14:22 Last Admin: 11/15/24 14:45 Dose: 4 mg Documented By: KOMAL Ondansetron HCl (Ondansetron Inj 2 Mg/Ml 2 Ml Vial) 4 mg IV NOW STA Stop: 11/15/24 17:10 Last Admin: 11/15/24 17:18 Dose: 4 mg Documented By: SARAH Imaging Data Radiologist's Impression: Lumbar Spine X-Ray 11/15/24 17:20 Clinical history: Pain Technique: 3 views of the lumbar spine are submitted for review Comparison is made to the CT dated 04/19/2023 Findings: Again seen is an anterior and posterior fusion of L4 and L5 with posterior fixation rods and pedicle screws as well as interbody fusion. There is scoliosis. There is unchanged grade 1 anterolisthesis at L4-5. No fracture is identified. There is disc space narrowing and degenerative spur formation from L1-2 through L3-4 and also at L5-S1. No focal osseous lesion is seen. The bowel gas pattern appears unremarkable. Surgical clips are seen consistent with prior cholecystectomy Impression: 1. Unchanged L4-5 fusion 2. Scoliosis and anterolisthesis at L4-5. 3. Multilevel degenerative disc disease ACT 112: Positive. There are findings on this exam that require communication between the performing entity and the patient following Patient Test Result Information Act ([place] ACT 112) guidelines. Electronically signed by Nolberto Stark 11-15-2024 6:37 PM Discharge Plan Visit Data Chief Complaint: Back Injury/Pain Stated Complaint: SEVERVE BACK LEG PAIN ED Provider: Garry Guy ED Midlevel Provider: Peggy Cifuentes Discharge Problem: Lumbar radiculopathy, Low back pain Patient Disposition: Admitted As Inpatient Condition: Good Forms Stand Alone Forms: My [facility] Prescriptions Prescriptions: No Action diclofenac sodium 1 % gel 2 g topical QID Rx Instructions: apply to single elbow, wrist or hand; for hand includes palm/fingers/back of hand. furosemide 40 mg tablet 40 mg PO QAM Qty: 90 3RF hydroxychloroquine 200 mg tablet 200 mg PO BID Qty: 180 0RF potassium chloride [Klor-Con 10] 10 mEq tablet extended release 10 meq PO QAM Qty: 90 3RF Qulipta 60 mg tablet 60 mg PO DAILY 90 Days Qty: 90 2RF lubiprostone [Amitiza] 24 mcg capsule 24 mcg PO BID Qty: 180 3RF metoprolol succinate 50 mg tablet extended release 24 hr 50 mg PO BID Qty: 180 3RF spironolactone 25 mg tablet 25 mg PO QAM Qty: 90 3RF Hold Instructions: CKD levothyroxine 100 mcg tablet 100 mcg PO QDL Qty: 90 3RF Rx Instructions: Pt states she has been taking 1 whole tab amoxicillin 500 mg tablet 2,000 mg PO ONCE Qty: 32 3RF Rx Instructions: 4 tabs 1 hour prior to procedure losartan 100 mg tablet 100 mg PO QAM Qty: 90 3RF calcium carbonate [Calcium 600] 600 mg calcium (1,500 mg) tablet 600 mg PO BID Qty: 60 0RF allopurinol 300 mg tablet 300 mg PO DAILY MDD qam Qty: 90 3RF duloxetine 20 mg capsule,delayed release(DR/EC) 20 mg PO QAM Qty: 90 3RF pantoprazole 40 mg tablet,delayed release (DR/EC) 40 mg PO DAILY Qty: 90 3RF Ubrelvy 100 mg tablet 100 mg PO .COMPLEX MDD 200 mg PRN (Reason: migraine headache) 90 Days Qty: 48 3RF Rx Instructions: 100 mg orally take prn migraine, may repeat after two hours prn B-complex with vitamin C Capsule 1 cap PO QAM magnesium 250 mg tablet 500 mg PO HS aspirin 81 mg tablet,delayed release (DR/EC) 81 mg PO QPM Probiotic 20 billion cell Capsule 20,000 mmu cells PO DAILY ropinirole 1 mg tablet 2 mg PO HS naratriptan 2.5 mg tablet 2.5 mg PO DIRECTED PRN (Reason: migraine headache) oxycodone 5 mg tablet 5 mg PO Q8H PRN (Reason: pain) Qty: 10 0RF polyethylene glycol 3350 [Miralax] 17 gram Powder In Packet 17 g PO BID Qty: 100 0RF sennosides-docusate sodium [Senna with Docusate Sodium] 8.6-50 mg tablet 2 tab-cap PO HS Qty: 60 0RF diltiazem HCl 240 mg capsule,extended release 24hr 240 mg PO DAILY Qty: 30 0RF famotidine 20 mg tablet 20 mg PO BID Rx Instructions: Pt states she is still taking this. Referrals Referrals: Michael King MD [Primary Care Provider] -
[2024-11-15] MEDS: ONDANSETRON INJ 2 MG/ML 2 ML VIAL IV STA ×2 (14:45→17:18)
[2024-11-15] MEDS: MoRPHine SULFATE 4 MG/ML 1 ML CARP\\VIAL IV STA ×2 (14:45→16:18)
[2024-11-15 14:55] LABS: Hematocrit (blood only) 41.5 % (37.0-47.0); Hemoglobin 13.0 g/dl (12.0-16.0); Immature Granulocytes # (auto) 0.14 K/uL (0.01-0.20); Immature Granulocytes % (auto) 1.3 %; Mean Corpuscular Hemoglobin 30.0 pg (25.0-34.0); Mean Corpuscular Volume 95.6 fL (80.0-100.0); Platelet Count 214 K/uL (130-400); RDW Standard Deviation 50.1 fL (36.4-46.3); Red Blood Count 4.34 M/uL (4.20-5.40); White Blood Count 11.19 K/ul (4.8-10.8)
[2024-11-15 15:09] LABS: Alanine Aminotransferase 16 U/L (7-52); Albumin Globulin Ratio 1.7 (0.9-2); Alkaline Phosphatase 138 U/L (34-104); Anion Gap 7 (3-11); Bilirubin,Total 0.7 mg/dl (0.2-1.0); Blood Urea Nitrogen 23 mg/dl (6-23); Calcium 9.7 mg/dl (8.6-10.3); Carbon Dioxide 31 mmol/L (21-32); Chloride 102 mmol/L (98-107); Globulin 2.5 gm/dl (2.5-4.0); Glucose 71 mg/dl (70-99(Fasting)); Potassium 4.2 mmol/L (3.5-5.1); Sodium 140 mmol/L (136-145); Total Protein 6.8 gm/dl (6.0-8.3)
--- NOTE | 2024-11-15 15:24 | Emergency Department Note ---
ED Visit Note I was consulted by the Advanced Practice Provider Peggy Cifuentes PA-C. I performed a substantive portion of the visit including all aspects of medical decision making. .
[2024-11-15] MEDS: dexAMETHasone**PF** 10 MG/ML VIAL IV ONE (15:46)
[2024-11-15 17:18] LABS: Appearance Urine Clear (Clear); Glucose Urine UA Negative (Negative)
--- NOTE | 2024-11-15 18:37 | XRay Report ---
Clinical history: Pain Technique: 3 views of the lumbar spine are submitted for review Comparison is made to the CT dated 04/19/2023 Findings: Again seen is an anterior and posterior fusion of L4 and L5 with posterior fixation rods and pedicle screws as well as interbody fusion. There is scoliosis. There is unchanged grade 1 anterolisthesis at L4-5. No fracture is identified. There is disc space narrowing and degenerative spur formation from L1-2 through L3-4 and also at L5-S1. No focal osseous lesion is seen. The bowel gas pattern appears unremarkable. Surgical clips are seen consistent with prior cholecystectomy Impression: 1. Unchanged L4-5 fusion 2. Scoliosis and anterolisthesis at L4-5. 3. Multilevel degenerative disc disease ACT 112: Positive. There are findings on this exam that require communication between the performing entity and the patient following Patient Test Result Information Act ([place] ACT 112) guidelines. Electronically signed by Nolberto Stark 11-15-2024 6:37 PM
--- NOTE | 2024-11-15 19:35 | History & Physical Report ---
Date of Service November 15, 2024 Assessment & Plan (1) Acute back pain: (2) Elevated alkaline phosphatase level: Plan 69-year-old female PMHx gastroparesis, rectocele, rheumatoid arthritis, superior mesenteric artery stenosis, occlusion of celiac artery, positive BRIGHT, migraines, OA, JACOB, RLS, dyslipidemia, sinus bradycardia s/p cardiac pacemaker, tremor, hypothyroidism, and CKD presenting for pain shooting down the right lower extremity. ED evaluation reveals leukocytosis 11.19, stable H&H; CMP grossly unremarkable exception of alkaline phosphatase 138; urine negative for infection; lumbar spine XR unchanged L4-5 fusion, scoliosis and anterolisthesis of L4-L5, multilevel DDD.; Provided with Zofran 4 mg IV x 2, morphine 4 sade IV x 2 and dexamethasone 10 mg IV in ED. #Acute back pain Worsening back pain x 5 days, localized just above R hip and down RLE. Worse with ambulation and pressure on the leg. No known trauma or falls that would have instigated. She is to follow with outpatient Ortho in approximately 3 months. She has history of prior fusions. Patient received morphine and dexamethasone in ED. - CBC leukocytosis 11.8; UA without infection - Lumbar spine XR unchanged L4-5 fusion, scoliosis and anterolisthesis of L4-L5, multilevel DDD - MRI pending for am (pacemaker present) - Zofran prn N/V - Morphine prn pain, deescalate as patient tolerates - Deferred additional steroids at time of admission - PT/OT ordered - appreciate assistance - Consider ortho consult pending imaging findings/symptom course #Elevated Alk phos Chronic findings, most recently addressed by PCP. H/o osteopenia. No abdominal pain at present. - Alk phos 138, otherwise LFTs WNL - Vit D from 09/2024 38.8 #CKD stage III- Cr baseline 1.2-1.6, Cr at admission 1.19 - BMP as appropriate #HTN/PSVT/Symptomatic bradycardia s/p pacemaker (12/2018)- ASA, Diltiazem, losartan, metoprolol, furosemide, spironolactone - continue #Hypothyroidism- Levothyroxine - continue #Migraine- Follows with neurology; Atogepant, naratriptan prn, urogepant - continue #Constipation/IBS- Docusate, Lubiprostone - continue #RLS- Duloxetine, ropinirole, magnesium - continue #GERD- Famotidine, pantoprazole - continue #Inflammatory arthritis/RA- Hydroxychloroquine - continue Dispo: Obs, med/sx VTE prophylaxis: Heparin This document was dictated utilizing Omnigy. Please excuse any grammatical errors that may be secondary to use of this software. Admission and Anticipated Discharge Date Admission Date: 11/15/2024 History of Present Illness Chief Complaint: Back pain, LE numbness Primary Care Provider: Michael King MD 69-year-old female PMHx gastroparesis, rectocele, rheumatoid arthritis, superior mesenteric artery stenosis, occlusion of celiac artery, positive BRIGHT, migraines, OA, JACOB, RLS, dyslipidemia, sinus bradycardia s/p cardiac pacemaker, tremor, hypothyroidism, and CKD presenting for pain shooting down the right lower extremity. Patient states that 5 days [employer]EF[employer] SAL[employer] she woke in the morning and noticed that her R leg was "crunched up beneath her" and that she cannot straighten it. She started to have pain behind the right hip that extended down to her knee and ankle. She also notes that her leg felt more swollen. The left lower extremity is not having any symptoms. She is having back pain just above the hip and then down the RLE as described. She tried to take [id number] medications as well as left over codeine from prior surgery. The [id number] medications did not help with the pain, but scheduled medication did help her sleep. She states that the pain continue to worsen over the next few days. She cannot get the symptoms to resolve. Day prior to arrival she saw her PCP who offered her pain medications but the patient denied because she wanted to try to see if her symptoms got better throughout the night and she was concerned with her history of gastroparesis and constipation. Day of arrival she was at her fireworks maker and she states that she did take 1/2 pill of the codeine because sitting was causing her significant pain. At its worst, the pain is a 10 out of 10 on the pain scale but at present it is a 6-7 out of 10 on the pain scale. She describes it as a shooting pain. She has chronic bowel and bladder issues, stating that she gets chronic UTIs because she is chronically having overflow diarrhea from significant constipation. She has had 5 UTIs in the past 3 months. She is not having any LUTS at present. Her bowel and bladder issues are not worse from her baseline. No falls. She does not feel weak, she states that the pain is so significant that she cannot bear weight. She is using a wheelchair and crutches for ambulation. Overall denying chest pain, SOB, palpitations, abdominal pain, N/V/D/C, worsening numbness/tingling, fever/chills, URI symptoms, LUTS, or again falls. ED evaluation reveals leukocytosis 11.19, stable H&H; CMP grossly unremarkable exception of alkaline phosphatase 138; urine negative for infection; lumbar spine XR unchanged L4-5 fusion, scoliosis and anterolisthesis of L4-L5, multilevel DDD.; Provided with Zofran 4 mg IV x 2, morphine 4 sade IV x 2 and dexamethasone 10 mg IV in ED. Please see Dr. Ardon's attestation for adjustments/additions to treatment plan. Allergies Allergy/AdvReac Type Severity Reaction Status Date / Time rifampin AdvReac Severe cardiac Verified 11/15/24 19:08 arrhythmia + renal failure cephalexin [From Keflex] AdvReac Intermediate Nausea Verified 11/15/24 19:08 Home Medications Medication Instructions Recorded Confirmed Type B-complex with vitamin C 1 cap PO QAM 07/09/21 11/15/24 History magnesium 250 mg tablet 500 mg PO HS 10/10/21 11/15/24 History aspirin 81 mg tablet,delayed 81 mg PO QPM 03/11/22 11/15/24 History release lactobacillus comb no.10 20 20,000 mmu cells PO DAILY 03/11/22 11/15/24 History billion cell capsule (Probiotic) calcium carbonate (Calcium 600) 600 mg PO BID #60 tabs 06/23/22 11/15/24 Rx diclofenac sodium 1 % topical gel 2 g topical QID 07/06/23 11/15/24 History furosemide 40 mg tablet 40 mg PO QAM #90 tabs 01/24/24 11/15/24 Rx allopurinol 300 mg tablet 300 mg PO DAILY #90 tabs 02/23/24 11/15/24 Rx duloxetine 20 mg capsule,delayed 20 mg PO QAM #90 caps 02/23/24 11/15/24 Rx release pantoprazole 40 mg tablet,delayed 40 mg PO DAILY gerd #90 tabs 02/23/24 11/15/24 Rx release hydroxychloroquine 200 mg tablet 200 mg PO BID #180 tabs 02/28/24 11/15/24 Rx potassium chloride 10 mEq 10 meq PO QAM #90 tabs 05/22/24 11/15/24 Rx tablet,extended release (Klor-Con) atogepant 60 mg tablet (Qulipta) 60 mg PO DAILY 90 days #90 tabs 05/24/24 11/15/24 Rx ubrogepant 100 mg tablet (Ubrelvy) 100 mg PO .COMPLEX PRN migraine 08/23/24 11/15/24 Rx headache 90 days #48 tabs lubiprostone 24 mcg capsule 24 mcg PO BID #180 caps 09/05/24 11/15/24 Rx (Amitiza) metoprolol succinate 50 mg 50 mg PO BID #180 tabs 10/17/24 11/15/24 Rx tablet,extended release 24 hr ropinirole 1 mg tablet 2 mg PO HS restless leg(s) 10/17/24 11/15/24 History spironolactone 25 mg tablet 25 mg PO QAM #90 tabs 10/17/24 11/15/24 Rx naratriptan 2.5 mg tablet 2.5 mg PO DIRECTED PRN migraine 10/28/24 11/15/24 History headache oxycodone 5 mg tablet 5 mg PO Q8H PRN pain #10 tabs 10/29/24 11/15/24 Rx diltiazem HCl 240 mg 240 mg PO DAILY #30 caps 11/01/24 11/15/24 Rx capsule,extended release 24 hr polyethylene glycol 3350 17 gram 17 g PO BID #100 ea 11/01/24 11/15/24 Rx oral powder packet (Miralax) sennosides 8.6 mg-docusate sodium 2 tab-cap (2 x 8.6-50 mg) PO HS 11/01/24 11/15/24 Rx 50 mg tablet (Senna with Docusate #60 tabs Sodium) amoxicillin 500 mg tablet 2,000 mg (4 x 500 mg) PO ONCE #32 11/02/24 11/15/24 Rx tabs levothyroxine 100 mcg tablet 100 mcg PO QDL #90 tabs 11/02/24 11/15/24 Rx losartan 100 mg tablet 100 mg PO QAM #90 tabs 11/13/24 11/15/24 Rx famotidine 20 mg tablet 20 mg PO BID 11/15/24 11/15/24 History Past Med/Surg History Problem List (Updated 11/15/24 @ 20:35 by Dang Dan PA-C) Acute back pain Rash (Acute) Allergic reaction (Acute) Dilation of biliary tract Abnormal computed tomography angiography (CTA) Urinary tract infection (Acute) Abdominal pain (Acute) Rectocele Gastroparesis Chest pain (Acute) Elevated alkaline phosphatase level CKD (chronic kidney disease) Chest pain syndrome History of vitamin D deficiency Fecal incontinence Migraine with aura Osteoarthritis of left shoulder Cervical radiculopathy at C7 Cervical spinal stenosis S/P arthroscopy of shoulder Operation Date: 08/12/23 13:35 Actual Procedures p Left Shoulder Arthroscopy, extensive debridement, subacromial Deco mpression, Distal Clavicle Excision, Chondroplasty of Left Humeral Head, Biceps Tenodesis(Left) - Favian Blevins MD Osteoarthritis Osteoarthritis of left acromioclavicular joint SLAP lesion of left shoulder Impingement of left shoulder Myofascial pain syndrome, cervical Neuralgia Gout Granuloma annulare Chronic rhinitis Complex sleep apnea syndrome Multiple pulmonary nodules Morbid obesity Taking Farxiga for weight loss (no diabetes/prediabetes hx) Upper airway cough syndrome Chronic cough Allergic rhinitis with postnasal drip Exertional shortness of breath Iron deficiency anemia Urinary incontinence Chest pain (Acute) JACOB (obstructive sleep apnea) Constipation (Acute) Rheumatoid arthritis Paroxysmal SVT (supraventricular tachycardia) (Acute) Leukocytosis (Acute) Chronic venous insufficiency Lumbar radiculopathy Non-restorative sleep PLMD (periodic limb movement disorder) Excessive daytime sleepiness Osteopenia Nephrolithiasis Inflammatory arthritis Hyperlipidemia Elevated antinuclear antibody (BRIGHT) level Spinal stenosis of lumbar region Fatigue Essential tremor Bilateral hands - mild/intermittent Memory deficits Idiopathic peripheral neuropathy Left renal artery stenosis 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 Hypothyroidism Spondylolisthesis at L4-L5 level Generalized pain Restless leg syndrome Seronegative arthritis Presence of cardiac pacemaker RBBB (right bundle branch block) HTN (hypertension) GERD (gastroesophageal reflux disease) CKD (chronic kidney disease), stage III Erosive osteoarthritis (Chronic) Medical History Occlusion of celiac artery History of nephrolithiasis Multiple lung nodules Migraine Left renal artery stenosis Iron deficiency anemia Hypothyroidism Hyperlipidemia HTN (hypertension) History of vitamin D deficiency Gout Exertional shortness of breath Essential tremor Bilateral hands - mild/intermittent Chronic kidney disease (CKD), stage III (moderate) Chronic cough Lumbar stenosis Cervical spinal stenosis Allergic rhinitis Urinary incontinence Superior mesenteric artery stenosis Seronegative arthritis History of right bundle branch block Hx of supraventricular tachycardia s/p pacemaker placement Osteoarthritis Osteopenia Chronic venous insufficiency Hx of leukocytosis Chest pain syndrome 05/2024 >>f/U w/ Dr silva was told "nothing to be concerned about" Trigeminal neuralgia Pre-diabetes Right shoulder tendinitis Muscle spasm Random episodes, possibly r/t RLS but no definitive etiology found per patient Pre-syncope Hx pre-syncopal/syncope episodes r/t autonomic disorder vs vasovagal; improved recently with verapamil/metoprolol dosing adjustments On home O2 2 lpm PRN exertion; "rare" use Hx of orthostatic hypotension Autonomic neuropathy Idiopathic peripheral neuropathy History of recent steroid use [facility] rheumatology visit 07/08/23, "Gout.. Discussed that patient was supposed to taper down on her prednisone. Reduce prednisone to 10 mg for 1 week, then reduce to 5 mg" > patient now back to her baseline of 5mg daily Hx of sepsis [place]/20[place] ([place]) r/t kidney infection Hx MRSA infection ~2016 in the finger, dx at [facility]. Osteomyelitis- "had surgery to remove" Polymyalgia rheumatica states most recent testing came back negative follows w/ Dr Gomez Chronic daily prednisone- currently at maintenance dose of 2 mg daily- being weaned off Vascular disease Renal artery stenosis, celiac/SMA stenosis- no intervention felt necessary per 02/05/21 vascular note Per patient- [place] [facility] [place] and felt report was read incorrect and patient has no significant stenosis Sleep apnea Non-compliant with CPAP GERD (gastroesophageal reflux disease) Restless legs syndrome Rheumatoid arthritis Questionable, serum negative Pacemaker Implanted 2018/recurrent syncope secondary to symptomatic bradycardia- last checked ~fall [address] Silva [facility] History of COVID-19 07/2020- no current problems Spondylolysis Hypertension Surgical History Status post arthroscopy of left shoulder (08/12/23) Status post right knee replacement 01/16/22: LMA#5 + PNB. Status post right knee replacement 01/16/22: LMA#5 + PNB Status post placement of other cardiac pacemaker History of lumbar spinal fusion L4-5 fusion/decompression (03/13/22): Grade view 1, MAC#3, ETT 7.0 at [facility] S/P cardiac pacemaker procedure Implanted 2018 ([facility]) History of temporal artery biopsy Interdigital neuroma of foot Hx foot injections (done under anesthesia) History of hand surgery right finger left hand- I&D History of breast biopsy aspiration of cyst from left breast benign History of total abdominal hysterectomy and bilateral salpingo-oophorectomy History of dilatation and curettage History of bilateral tubal ligation History of colonoscopy History of esophagogastroduodenoscopy (EGD) History of cholecystectomy History of tooth extraction Family History Grandmother (Maternal) Family history of diabetes mellitus Father Myocardial infarction Lung cancer Hypertension Mother Acute myocardial infarction Hypertension Other No family history of adverse response to anesthesia Denies family history of Ovarian cancer Breast cancer Colorectal cancer Social History Smoking Status: Never smoker Second Hand Exposure: Yes (parents smoked); Do You Dip or Chew Tobacco: No; Hx Alcohol Use: No Hx Substance Use: No Preferred Language: [place] Citizen Communication Ability: Effective Visual Impairment: No Limitations 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 Required: No Beliefs That Will Affect Care: None marital status: Current Living Situation: Spouse Current Living Situation Comment: at home current occupational status: employed and retired 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, 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 How many Children do You have: 2 Feels Safe at Home: Yes Childhood Exposure to Second-Hand Smoke: Yes Diet: other Diet Comment: low dairy caffeine: Yes during the past year weight has: increased > 10 lbs Dental Care, Regularly: Yes Physical Activity Frequency: Daily Seatbelt Use: always Assistive Devices: Cane Review of Systems Review of Systems: All systems reviewed & are unremarkable except as noted in Subjective Physical Exam Physical Exam: General: No acute distress Skin: Warm and dry Head: Normocephalic, atraumatic Eyes: PERRL, conjunctivae clear, sclera non-icteric; wearing glasses ENT: External ear and ear canal without swelling; nose atraumatic; good dentition, tongue normal appearance, pharynx normal Neck: Supple, no LAD Cardio: RRR, no M/G/R, S1 and S2 normal Resp: No respiratory distress, Lungs CTA in all lobes bilaterally, no wheezes, rales, or rhonchi Abdomen: Soft, symmetric, nontender; No masses or hepatosplenomegaly; Bowel sounds normoactive MSK: No deformities; pulses palpable and equal; no edema. Neuro: Awake, alert; Sensation intact bilaterally; CN grossly intact, baseline neuropathy BLE Psych: Appropriate mood and affect; good judgement and insight. Results & Data Results & Data Vital Signs (Past 12 Hours) Vital Signs Temp Pulse Pulse Resp BP BP Pulse Ox 11/15/24 17:00 62 17 106/49 L 97 11/15/24 14:48 60 16 112/63 100 11/15/24 14:48 99 11/15/24 13:08 37 C 90 28 H 111/53 L 99 O2 Del Method 11/15/24 17:00 Room Air 11/15/24 14:48 Room Air 11/15/24 14:48 Room Air 11/15/24 13:08 Room Air Laboratory Results 11/15/24 11/15/24 Unknown 14:40 WBC 11.19 H RBC 4.34 Hgb 13.0 Hct 41.5 MCV 95.6 MCH 30.0 MCHC 31.3 L RDW Std Deviation 50.1 H RDW Coeff of Rowdy 14.5 Plt Count 214 MPV 11.3 Immature Gran % (Auto) 1.3 Neut % (Auto) 75.8 Lymph % (Auto) 9.8 Pacific % (Auto) 11.3 Eos % (Auto) 1.4 Baso % (Auto) 0.4 Neut # (Auto) 8.49 H Lymph # (Auto) 1.10 L Pacific # (Auto) 1.26 H Eos # (Auto) 0.16 Baso # (Auto) 0.04 Immature Gran # (Auto) 0.14 Sodium 140 Potassium 4.2 Chloride 102 Carbon Dioxide 31 Anion Gap 7 BUN 23 Creatinine 1.19 Est Cr Clr Drug Dosing Not Reportable eGFR 49.80 BUN/Creatinine Ratio 19.3 Glucose 71 Calcium 9.7 Total Bilirubin 0.7 AST 16 ALT 16 Alkaline Phosphatase 138 H Total Protein 6.8 Albumin 4.3 Globulin 2.5 Albumin/Globulin Ratio 1.7 Urine Color Yellow Urine Appearance Clear Urine pH 7.0 Ur Specific Wilkinson 1.010 Urine Protein Negative Urine Glucose (UA) Negative Urine Ketones Negative Urine Blood Negative Urine Nitrite Negative Urine Bilirubin Negative Urine Urobilinogen Negative Ur Leukocyte Esterase Negative Urine Comment Diagnostic Findings Lumbar Spine X-Ray 11/15/24 17:20 Clinical history: Pain Technique: 3 views of the lumbar spine are submitted for review Comparison is made to the CT dated 04/19/2023 Findings: Again seen is an anterior and posterior fusion of L4 and L5 with posterior fixation rods and pedicle screws as well as interbody fusion. There is scoliosis. There is unchanged grade 1 anterolisthesis at L4-5. No fracture is identified. There is disc space narrowing and degenerative spur formation from L1-2 through L3-4 and also at L5-S1. No focal osseous lesion is seen. The bowel gas pattern appears unremarkable. Surgical clips are seen consistent with prior cholecystectomy Impression: 1. Unchanged L4-5 fusion 2. Scoliosis and anterolisthesis at L4-5. 3. Multilevel degenerative disc disease ACT 112: Positive. There are findings on this exam that require communication between the performing entity and the patient following Patient Test Result Information Act ([place] ACT 112) guidelines. Electronically signed by Nolberto Stark 11-15-2024 6:37 PM Medications Administered Ondansetron 4 mg IV x 2 Morphine 4 mg IV x 2 Dexamethasone 10 mg IV Code Status & VTE Plan Code Status Full Supervising Physician Co-Signing Physician Notes Patient seen and examined, chart reviewed, case discussed with CAITY Dan and I agree with the assessment and plan as above Worsening back pain with LE weakness Needs MRI - to be performed in AM when nurse is present due to presence of patient's pacer Pain is well controlled at present Management as above PG Care Time/CCT Total # of Minutes Spent Total Time Spent with Patient: Total time spent is greater than 50% in coordination of care (as documented) at patient's floor/unit and/or counseling patient: Coding Level of Care Code 36088 INT INP/OBS CARE 3/75MIN Diagnoses Acute back pain M54.9 Elevated alkaline phosphatase level R74.8
[2024-11-15] MEDS ORDERED: NALOXONE HCL 0.4 MG/1 ML VIAL/CARP IV PRN (20:28)
[2024-11-15] MEDS ORDERED: ONDANSETRON INJ 2 MG/ML 2 ML VIAL IV PRN (21:34)
[2024-11-15] MEDS ORDERED: MELATONIN 3 MG TAB PO PRN (21:34)
[2024-11-15] MEDS: ASPIRIN 81 MG ECTAB PO SCH (22:42)
[2024-11-15] MEDS: FAMOTIDINE 20 MG TAB PO SCH (22:42)
[2024-11-15] MEDS: DOCUSATE SODIUM/SENNA 50/8.6MG TAB PO SCH (22:42)
[2024-11-15] MEDS: HYDROXYCHLOROQUINE SULFATE 200 MG TAB PO SCH (22:42)
[2024-11-15] MEDS: MAGNESIUM OXIDE 400 MG TAB PO SCH (22:42)
[2024-11-15] MEDS: METOPROLOL SUCC 50MG EXT REL TAB PO SCH (22:43)
[2024-11-15] MEDS: DICLOFENAC SOD 1% GEL 100 GM TUBE EXT SCH (22:43)
[2024-11-15] MEDS: POLYETHYLENE (MIRALAX) 17 GM PACK PO SCH (22:43)
[2024-11-15] MEDS: LUBIPROSTONE 8 MCG CAP PO SCH (22:44)
[2024-11-15] MEDS: HEPARIN SOD 5,000 UNIT/0.5 ML VIAL SQ SCH (22:50)
[2024-11-15] MEDS: MoRPHine SULFATE 2 MG/ML CARP IV PRN (22:58)
[2024-11-16] MEDS: MoRPHine SULFATE 4 MG/ML 1 ML CARP\\VIAL IV PRN (09:03)
[2024-11-16] MEDS: SPIRONOLACTONE 25 MG TAB PO SCH (09:09)
[2024-11-16] MEDS: LOSARTAN POTASSIUM 50 MG TAB PO SCH (09:10)
[2024-11-16] MEDS: FUROSEMIDE 40 MG TAB PO SCH (09:11)
[2024-11-16] MEDS: POTASSIUM CHLORIDE 10 MEQ TABCR PO SCH (09:17)
[2024-11-16] MEDS: methylPREDNISolone 10 mg/mL (For Ped Dose < 7mg) IV SCH (09:24)
[2024-11-16] MEDS: LEVOTHYROXINE SODIUM 100 MCG TABLET PO SCH (12:22)
--- NOTE | 2024-11-16 12:42 | Magnetic Resonance Report ---
MR lumbar spine wo con CLINICAL HISTORY: 69 years-old Female with LBP, R leg pain, R Leg weak, dec sensation R thigh. Acute on chronic low back pain with prior surgery COMPARISON: Lumbar spine radiographs 11/15/2024, MRI March 11, 2022, CTA abdomen and pelvis 10/28/2024 . TECHNIQUE: Multiplanar, multi sequence MRI of the lumbar spine was performed without intravenous cont rast. FINDINGS: Mild lumbar levoscoliosis. The imaged intra-abdominal structures are unremarkable. 7 mm ant erolisthesis L4 on L5 is unchanged from the prior CT study. Laminectomy with discectomy and posterior interbody marielos and screw fusion redemonstrated at this interspace. No acute fracture, or subluxation. There is moderate to severe intervertebral disc space narrowing at L3-L4 with moderate marrow edema. Mild paravertebral edema at this interspace with trace fluid within the disc space. The degree of di sc space narrowing is unchanged from prior CT, however progressed from the prior MR. Additional Modic type I and II endplate degeneration at L1-L2. L1-L2: Moderate to severe intervertebral disc space narrowing. Spondylotic spurring with circumferen tial annular disc bulge/disc osteophyte complex. Left lateral recess disc protrusion measures 1.8 x 0 .6 cm on image 7 series 6. There is an associated annular fissure. Moderate to severe left lateral re cess narrowing. Central canal and right neural foramen are patent. Moderate left foraminal narrowing. Findings have worsened from prior MR. L2-L3: Mild intervertebral disc space narrowing and spondylotic spurring with small posterior annula r disc bulge. Moderate facet arthrosis. Mild inferior left neural foraminal narrowing. The central ca nal and right neural foramen are patent. L3-L4: Moderate to severe intervertebral disc space narrowing with marrow and adjacent paravertebral edema. Trace fluid signal within the disc space. Posterior annular fissure with a left paracentral/l eft lateral recess disc extrusion measuring 1.3 x 0.5 cm in transverse and AP dimension extending 6 m m below the superior endplate of L4. Moderate left lateral recess narrowing with mild left foraminal narrowing. The central canal is patent. Moderate right foraminal stenosis, progressed from prior. L4-L5: Grade 1 anterolisthesis with postoperative changes as above. No central canal or neural nacho inal stenosis. L5-S1: Mild intervertebral disc space narrowing with small posterior annular disc bulge, eccentric t o the left neural foramen. Moderate facet arthrosis. No central canal or neural foraminal stenosis. IMPRESSION: 1. Moderate to severe intervertebral disc space narrowing at L1-L2 and L3-L4 has progressed from the 2021 MRI exam. 2. Marrow and mild adjacent paravertebral edema at L3-L4 is noted conjunction with trace fluid within the intervertebral disc space, likely on a degenerative basis. Discitis/osteomyelitis could appear s imilarly however considered less likely. 3. Multilevel neural foraminal stenosis as above without significant central canal narrowing. 4. Laminectomy with discectomy, posterior interbody marielos and screw fusion hardware at L4-L5. ACT 112: Negative or not required by law. The above report was generated using voice recognition software. It may contain grammatical, syntax o r spelling errors. Electronically signed by: Blake Strong M.D. 11/16/2024 12:41 PM
--- NOTE | 2024-11-16 14:26 | Discharge Summary ---
Date of Service November 16, 2024 Admission HPI Per Admitting Provider 69-year-old female PMHx gastroparesis, rectocele, rheumatoid arthritis, superior mesenteric artery stenosis, occlusion of celiac artery, positive BRIGHT, migraines, OA, JACOB, RLS, dyslipidemia, sinus bradycardia s/p cardiac pacemaker, tremor, hypothyroidism, and CKD presenting for pain shooting down the right lower extremity. 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 She started to have pain behind the right hip that extended down to her knee and ankle. She also notes that her leg felt more swollen. The left lower extremity is not having any symptoms. She is having back pain just above the hip and then down the RLE as described. She tried to take rvhd-afe-cakmuiq medications as well as left over codeine from prior surgery. The kejm-wba-osydoch medications did not help with the pain, but scheduled medication did help her sleep. She states that the pain continue to worsen over the next few days. She cannot get the symptoms to resolve. Day prior to arrival she saw her PCP who offered her pain medications but the patient denied because she wanted to try to see if her symptoms got better throughout the night and she was concerned with her history of gastroparesis and constipation. 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 At its worst, the pain is a 10 out of 10 on the pain scale but at present it is a 6-7 out of 10 on the pain scale. She describes it as a shooting pain. She has chronic bowel and bladder issues, stating that she gets chronic UTIs because she is chronically having overflow diarrhea from significant constipation. She has had 5 UTIs in the past 3 months. She is not having any LUTS at present. Her bowel and bladder issues are not worse from her baseline. No falls. She does not feel weak, she states that the pain is so significant that she cannot bear weight. She is using a wheelchair and crutches for ambulation. Overall denying chest pain, SOB, palpitations, abdominal pain, N/V/D/C, worsening numbness/tingling, fever/chills, URI symptoms, LUTS, or again falls. ED evaluation reveals leukocytosis 11.19, stable H&H; CMP grossly unremarkable exception of alkaline phosphatase 138; urine negative for infection; lumbar spine XR unchanged L4-5 fusion, scoliosis and anterolisthesis of L4-L5, multilevel DDD.; Provided with Zofran 4 mg IV x 2, morphine 4 sade IV x 2 and dexamethasone 10 mg IV in ED. Please see Dr. Ardon's attestation for adjustments/additions to treatment plan. Specialty Data Hospitalist Discharge Diagnosis: Back pain with lumbar radiculopathy Discharge assessment: Vital Signs Temp Pulse Resp BP BP Pulse Ox O2 Del Method 11/16/24 09:02 62 106/62 11/16/24 08:28 36.4 C L 81 14 118/65 94 Room Air 11/15/24 22:41 36.5 C 68 18 130/74 98 Room Air 11/15/24 21:35 36.5 C 68 18 130/74 98 Room Air 11/15/24 21:00 Room Air 11/15/24 19:34 64 14 120/50 L 100 Room Air 11/15/24 17:00 62 17 106/49 L 97 Room Air 11/15/24 14:48 60 16 112/63 100 Room Air 11/15/24 14:48 99 Room Air GENERAL: Well-developed, well-nourished. NAD. EYES: EOMI. PERRLA. Anicteric. HENT: Moist mucous membranes. No scleral icterus. No cervical lymphadenopathy. LUNGS: Clear to auscultation bilaterally. No accessory muscle use. No W/R/R. CARDIOVASCULAR: Regular rate and rhythm. No M/G/R. No JVD. ABDOMEN: Soft, non-tender and non-distended. No palpable masses. Bowel sounds normoactive x 4 quad. EXTREMITIES: No edema. Non-tender. Peripheral pulses +2/4. NEUROLOGIC: A&O x3. No focal neurological deficits. CN II-XII grossly intact. PSYCHIATRIC: Cooperative. Appropriate mood and affect. SKIN: Warm, dry, intact. No rashes or lesions. Discharge Data Consultations 11/15/24 19:05 ED Decision to Admit Stat 11/16/24 14:21 Burn CD for patient Routine Procedures Performed Lumbar Spine X-Ray 11/15/24 17:20 Clinical history: Pain Technique: 3 views of the lumbar spine are submitted for review Comparison is made to the CT dated 04/19/2023 Findings: Again seen is an anterior and posterior fusion of L4 and L5 with posterior fixation rods and pedicle screws as well as interbody fusion. There is scoliosis. There is unchanged grade 1 anterolisthesis at L4-5. No fracture is identified. There is disc space narrowing and degenerative spur formation from L1-2 through L3-4 and also at L5-S1. No focal osseous lesion is seen. The bowel gas pattern appears unremarkable. Surgical clips are seen consistent with prior cholecystectomy Impression: 1. Unchanged L4-5 fusion 2. Scoliosis and anterolisthesis at L4-5. 3. Multilevel degenerative disc disease ACT 112: Positive. There are findings on this exam that require communication between the performing entity and the patient following Patient Test Result Information Act ([place] ACT 112) guidelines. Electronically signed by Nolberto Stark 11-15-2024 6:37 PM Lumbar Spine MRI 11/16/24 00:00 MR lumbar spine wo con CLINICAL HISTORY: 69 years-old Female with LBP, R leg pain, R Leg weak, dec se nsation R thigh. Acute on chronic low back pain with prior surgery COMPARISON: Lumbar spine radiographs 11/15/2024, MRI March 11, 2022, CTA abdomen and pelvis 10/28/2024. TECHNIQUE: Multiplanar, multi sequence MRI of the lumbar spine was performed without intravenous contrast. FINDINGS: Mild lumbar levoscoliosis. The imaged intra-abdominal structures are unremarkable. 7 mm anterolisthesis L4 on L5 is unchanged from the prior CT study. Laminectomy with discectomy and posterior interbody marielos and screw fusion redemonstrated at this interspace. No acute fracture, or subluxation. There is moderate to severe intervertebral disc space narrowing at L3-L4 with moderate marrow edema. Mild paravertebral edema at this interspace with trace fluid within the disc space. The degree of disc space narrowing is unchanged from prior CT, however progressed from the prior MR. Additional Modic type I and II endplate degeneration at L1-L2. L1-L2: Moderate to severe intervertebral disc space narrowing. Spondylotic spurring with circumferential annular disc bulge/disc osteophyte complex. Left lateral recess disc protrusion measures 1.8 x 0.6 cm on image 7 series 6. There is an associated annular fissure. Moderate to severe left lateral recess narrowing. Central canal and right neural foramen are patent. Moderate left foraminal narrowing. Findings have worsened from prior MR. L2-L3: Mild intervertebral disc space narrowing and spondylotic spurring with small posterior annular disc bulge. Moderate facet arthrosis. Mild inferior left neural foraminal narrowing. The central canal and right neural foramen are patent. L3-L4: Moderate to severe intervertebral disc space narrowing with marrow and adjacent paravertebral edema. Trace fluid signal within the disc space. Posterior annular fissure with a left paracentral/left lateral recess disc extrusion measuring 1.3 x 0.5 cm in transverse and AP dimension extending 6 mm below the superior endplate of L4. Moderate left lateral recess narrowing with mild left foraminal narrowing. The central canal is patent. Moderate right foraminal stenosis, progressed from prior. L4-L5: Grade 1 anterolisthesis with postoperative changes as above. No central canal or neural foraminal stenosis. L5-S1: Mild intervertebral disc space narrowing with small posterior annular disc bulge, eccentric to the left neural foramen. Moderate facet arthrosis. No central canal or neural foraminal stenosis. IMPRESSION: 1. Moderate to severe intervertebral disc space narrowing at L1-L2 and L3-L4 has progressed from the 2021 MRI exam. 2. Marrow and mild adjacent paravertebral edema at L3-L4 is noted conjunction with trace fluid within the intervertebral disc space, likely on a degenerative basis. Discitis/osteomyelitis could appear similarly however considered less likely. 3. Multilevel neural foraminal stenosis as above without significant central canal narrowing. 4. Laminectomy with discectomy, posterior interbody marielos and screw fusion hardware at L4-L5. ACT 112: Negative or not required by law. The above report was generated using voice recognition software. It may contain grammatical, syntax or spelling errors. Electronically signed by: Blake Strong M.D. 11/16/2024 12:41 PM Hospital Course (1) Acute back pain: (2) Elevated alkaline phosphatase level: Plan 69-year-old female PMHx gastroparesis, rectocele, rheumatoid arthritis, superior mesenteric artery stenosis, occlusion of celiac artery, positive BRIGHT, migraines, OA, JACOB, RLS, dyslipidemia, sinus bradycardia s/p cardiac pacemaker, tremor, hypothyroidism, and CKD presenting for pain shooting down the right lower extremity. ED evaluation reveals leukocytosis 11.19, stable H&H; CMP grossly unremarkable exception of alkaline phosphatase 138; urine negative for infection; lumbar spine XR unchanged L4-5 fusion, scoliosis and anterolisthesis of L4-L5, multilevel DDD.; Provided with Zofran 4 mg IV x 2, morphine 4 sade IV x 2 and dexamethasone 10 mg IV in ED. #Acute back pain Worsening back pain x 5 days, localized just above R hip and down RLE. Worse with ambulation and pressure on the leg. No known trauma or falls that would have instigated. She is to follow with outpatient Ortho in approximately 3 months. She has history of prior fusions. Patient received morphine and dexamethasone in ED. - CBC leukocytosis 11.8; UA without infection - Lumbar spine XR unchanged L4-5 fusion, scoliosis and anterolisthesis of L4-L5, multilevel DDD - Zofran prn N/V - Morphine prn pain, deescalate as patient tolerates - Deferred additional steroids at time of admission - PT/OT ordered - recommended return home - Lumbar MRI with mod-severe intervertebral disc space narrowing L1-L2 and L3-4 and marrow edema with mild adjacent paravertebral edema and trace fluid at L3-4. ?degenerative. Findings worsened since 2021. - Pt has an appt with [facility] and [facility] to discuss possible lupus as cause for her symptoms. - Just completed a steroid taper. Will defer additional steroids at this time. - Rx for home for Oxycodone 2.5-5mg for rescue for uncontrolled pain that is not relieved by Tylenol. #Elevated Alk phos Chronic findings, most recently addressed by PCP. H/o osteopenia. No abdominal pain at present. - Alk phos 138, otherwise LFTs WNL - Vit D from 09/2024 38.8 #CKD stage III- Cr baseline 1.2-1.6, Cr at admission 1.19 - BMP as appropriate #HTN/PSVT/Symptomatic bradycardia s/p pacemaker (12/2018)- ASA, Diltiazem, losartan, metoprolol, furosemide, spironolactone - continue #Hypothyroidism- Levothyroxine - continue #Migraine- Follows with neurology; Atogepant, naratriptan prn, urogepant - continue #Constipation/IBS- Docusate, Lubiprostone - continue #RLS- Duloxetine, ropinirole, magnesium - continue #GERD- Famotidine, pantoprazole - continue #Inflammatory arthritis/RA- Hydroxychloroquine - continue MRI disc burned and given to patient. She is medically and hemodynamically stable for discharge home today with outpatient f/u with her PCP and specialists as scheduled. Plan d/w Dr. Klein who is in agreement with aforementioned. Total time for discharge: 35 minutes Supervising Physician Co-Signing Physician Notes The patient was not seen by me. The chart was reviewed. Case discussed with ARJUN Ash. Agree with assessment and plan Coding Level of Care Code 18597 INP/OBS DISCH >30 MIN Diagnoses Acute back pain M54.9 Elevated alkaline phosphatase level R74.8
[2024-11-16 14:38] VITALS: BP 114/69; PULSE 70; RESP 16; TEMP 97.9; O2SAT 96
== END 2024-11-16 15:45 | disposition home or self-care (01) ==
LOC: 3N 13:05 → ED 13:05 → SUATTDRO 20:18 → 3N 21:00

== ENCOUNTER 2025-01-17 16:03 | Observation (INO) ==
--- NOTE | 2025-01-17 16:37 | Emergency Department Note ---
Impression & Plan Acute on chronic renal insufficiency, Fall from standing, Generalized weakness ED Provider Note NAME: OLI NELSON AGE: 69 SEX: F : 1955 ARRIVES VIA: Walk-In INFORMANT: Patient ED PROVIDER(S): Herman Knapp MD CHIEF COMPLAINT: Impaired kidney function, referred. PLAN: Disposition: Admit MEDICAL DECISION MAKING: The patient is a pleasant 69-year-old woman with a past medical history of CKD, paroxysmal SVT, hypertension who presents to the Emergency Department via walk- in referred by her PCP office for evaluation admission for worsening kidney function with creatinine of 2.66 and BUN of 71 on outpatient lab work today. Patient's baseline is 1.3-1.5. Patient reports that she was feeling increased weakness yesterday and early this morning when she reports feeling tremulousness and shaking in her muscles. She reports she got up repeatedly to go to the bathroom but denies burning or blood in her urine. Patient reports she sleeps in a recliner and got up to eat something thinking this may help her shakiness and reports she got lightheaded and fell backwards hitting the back of her head on the stairs. She denies loss of consciousness. She was able to crawl on her own back to her recliner and then told her this morning who did not hear her fall. She was able to ambulate and contacted her PCP office this morning who ordered outpatient blood work. Patient is not on anticoagulation. On evaluation the patient no acute distress, afebrile with stable vital signs. She appears clinically dry. She exhibits no focal neurologic deficits. There is no midline CTL spine tenderness palpation or step-offs. EKG is paced without overt acute ischemia. CXR negative for acute cardiopulmonary process per my personal preliminary review/interpretation. WBC within normal limits. H/H similar to prior. Platelets within normal limits. Chemistry without metabolic acidosis. Creatinine 2.6 similar to this morning but increased from patient's baseline. BUN is 72 with BUNs/creatinine 27 suggestive of prerenal component. LFTs unremarkable. CPK within normal limits. High-sensitivity troponin 19.9, nonspecific. Lipase is not elevated. TSH 8.1 however free T4 within normal limits. UA without convincing evidence of infection. CT of the head, C-spine and abdomen pelvis were obtained and were negative for acute abnormalities. Degenerative changes of the cervical spine are described. Given the patient's acute on chronic renal insufficiency with symptoms of generalized weakness patient does agree with plan for admission for further management. Dr. Moore, [facility] hospitalist, to evaluate the patient for admission. Further management per admitting team. Triage Nursing notes reviewed and agree them. Prior/external medical records reviewed Vital Signs: reviewed Differential diagnosis: Infection, dehydration, metabolic abnormality, hypo/hyperglycemia, electrolyte disturbance, anemia, hypoxia, cardiac sources, intracerebral event, toxicologic, neurologic, as well as other pathologies. ER treatment provided: See below. Diagnostic Interpreted by me: ECG: Atrial paced rhythm, 62 bpm, nonspecific intraventricular conduction block, no overt acute ischemia. Cardiac Monitoring: An order for continuous cardiac monitoring was placed and demonstrated atrial paced rhythm, 62 bpm, no ectopy. Laboratory studies: See below Imaging studies: See below Consultation(s): Dr. Moore, [facility] hospitalist. HPI: Per MDM. ROS: See above HPI for pertinent positives & negatives. A total of 10 systems reviewed and were otherwise negative. VITALS:See Below PHYSICAL EXAMINATION: GENERAL: Awake, alert, fatigued-appearing, in no distress HENT: Normocephalic, atraumatic. Oropharynx with dry mucous membranes and otherwise unremarkable. EYES: Normal conjunctiva. Sclera non-icteric. EOMI. No nystamgus. PEARRL. NECK: Supple. No nuchal rigidity. FROM. No JVD. RESPIRATORY: Clear to auscultation. CARDIAC: Regular rate, normal rhythm. Extremities warm and well perfused. Pulses equal. ABDOMEN: Soft, non-distended. No tenderness to palpation. No rebound or guarding. No masses. MUSCULOSKELETAL: Chest examination reveals no tenderness. The back is symmetrical on inspection without obvious abnormality. There is no CVA tenderness to palpation. No joint edema. LOWER EXTREMITIES: Calves are equal size bilaterally and non-tender. No edema. No discoloration. NEURO: Cranial nerves II-XII grossly intact. 5/5 strength and SILT x 4 extremities. Cerebellar function intact including [id number], alternating palms, [id number]. SKIN: No rash or jaundice noted. Herman Knapp MD Past Med/Surg History Problem List (Updated 01/18/25 @ 03:40 by Herman Knapp MD) Generalized weakness (Acute) Fall from standing (Acute) Acute on chronic renal insufficiency (Acute) ROSITA (acute kidney injury) Localized swelling of both lower legs (Acute) Superficial bruising of foot (Acute) Bilateral leg paresthesia (Acute) Diarrhea Rectal bleed Atherosclerosis of visceral artery of abdomen Right lumbar radiculopathy Hip osteoarthritis Hypertrophic osteoarthritis Dilation of biliary tract Abnormal computed tomography angiography (CTA) Urinary tract infection (Acute) Abdominal pain (Acute) Rectocele Gastroparesis Chest pain (Acute) Elevated alkaline phosphatase level CKD (chronic kidney disease) Chest pain syndrome History of vitamin D deficiency Fecal incontinence Migraine with aura Osteoarthritis of left shoulder Cervical radiculopathy at C7 Cervical spinal stenosis S/P arthroscopy of shoulder Operation Date: 08/12/23 13:35 Actual Procedures p Left Shoulder Arthroscopy, extensive debridement, subacromial Decompression, Distal Clavicle Excision, Chondroplasty of Left Humeral Head, Biceps Tenodesis(Left) - Favian Blevins MD Osteoarthritis Osteoarthritis of left acromioclavicular joint SLAP lesion of left shoulder Impingement of left shoulder Myofascial pain syndrome, cervical Neuralgia Gout Granuloma annulare Chronic rhinitis Complex sleep apnea syndrome Multiple pulmonary nodules Morbid obesity Taking Farxiga for weight loss (no diabetes/prediabetes hx) Upper airway cough syndrome Chronic cough Allergic rhinitis with postnasal drip Exertional shortness of breath Iron deficiency anemia Urinary incontinence Chest pain (Acute) JACOB (obstructive sleep apnea) Constipation (Acute) Rheumatoid arthritis Paroxysmal SVT (supraventricular tachycardia) (Acute) Leukocytosis (Acute) Chronic venous insufficiency Lumbar radiculopathy Non-restorative sleep PLMD (periodic limb movement disorder) Excessive daytime sleepiness Osteopenia Nephrolithiasis Inflammatory arthritis Hyperlipidemia Elevated antinuclear antibody (BRIGHT) level Spinal stenosis of lumbar region Fatigue Essential tremor Bilateral hands - mild/intermittent Memory deficits Idiopathic peripheral neuropathy Left renal artery stenosis 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 Hypothyroidism Spondylolisthesis at L4-L5 level Generalized pain Restless leg syndrome Seronegative arthritis Presence of cardiac pacemaker RBBB (right bundle branch block) HTN (hypertension) GERD (gastroesophageal reflux disease) CKD (chronic kidney disease), stage III Erosive osteoarthritis (Chronic) Medical History Occlusion of celiac artery History of nephrolithiasis Multiple lung nodules Migraine Left renal artery stenosis Iron deficiency anemia Hypothyroidism Hyperlipidemia HTN (hypertension) History of vitamin D deficiency Gout Exertional shortness of breath Essential tremor Bilateral hands - mild/intermittent Chronic kidney disease (CKD), stage III (moderate) Chronic cough Lumbar stenosis Cervical spinal stenosis Allergic rhinitis Urinary incontinence Superior mesenteric artery stenosis Seronegative arthritis History of right bundle branch block Hx of supraventricular tachycardia s/p pacemaker placement Osteoarthritis Osteopenia Chronic venous insufficiency Hx of leukocytosis Chest pain syndrome 05/2024 >>f/U w/ Dr silva was told "nothing to be concerned about" Trigeminal neuralgia Pre-diabetes Right shoulder tendinitis Muscle spasm Random episodes, possibly r/t RLS but no definitive etiology found per patient Pre-syncope Hx pre-syncopal/syncope episodes r/t autonomic disorder vs vasovagal; improved recently with verapamil/metoprolol dosing adjustments On home O2 2 lpm PRN exertion; "rare" use Hx of orthostatic hypotension Autonomic neuropathy Idiopathic peripheral neuropathy History of recent steroid use [facility] rheumatology visit 07/08/23, "Gout.. Discussed that patient was supposed to taper down on her prednisone. Reduce prednisone to 10 mg for 1 week, then reduce to 5 mg" > patient now back to her baseline of 5mg daily Hx of sepsis 08/2021 ([place]) r/t kidney infection Hx MRSA infection ~2016 in the finger, dx at [facility]. Osteomyelitis- "had surgery to remove" Polymyalgia rheumatica states most recent testing came back negative follows w/ Dr Gomez Chronic daily prednisone- currently at maintenance dose of 2 mg daily- being weaned off Vascular disease Renal artery stenosis, celiac/SMA stenosis- no intervention felt necessary per 02/05/21 vascular note Per patient- seen at [facility] [place] afterwards and felt report was read incorrect and patient has no significant stenosis Sleep apnea Non-compliant with CPAP GERD (gastroesophageal reflux disease) Restless legs syndrome Rheumatoid arthritis Questionable, serum negative Pacemaker Implanted 2018/recurrent syncope secondary to symptomatic bradycardia- last checked ~fall [address] Silva [facility] History of COVID-19 07/2020- no current problems Spondylolysis Hypertension Surgical History Status post arthroscopy of left shoulder (08/12/23) Status post right knee replacement 01/16/22: LMA#5 + PNB. Status post right knee replacement 01/16/22: LMA#5 + PNB Status post placement of other cardiac pacemaker History of lumbar spinal fusion L4-5 fusion/decompression (03/13/22): Grade view 1, MAC#3, ETT 7.0 at [facility] S/P cardiac pacemaker procedure Implanted 2019 ([facility]) History of temporal artery biopsy Interdigital neuroma of foot Hx foot injections (done under anesthesia) History of hand surgery right finger left hand- I&D History of breast biopsy aspiration of cyst from left breast benign History of total abdominal hysterectomy and bilateral salpingo-oophorectomy History of dilatation and curettage History of bilateral tubal ligation History of colonoscopy History of esophagogastroduodenoscopy (EGD) History of cholecystectomy History of tooth extraction Family History Grandmother (Maternal) Family history of diabetes mellitus Father Myocardial infarction Lung cancer Hypertension Mother Acute myocardial infarction Hypertension Other No family history of adverse response to anesthesia Denies family history of Ovarian cancer Breast cancer Colorectal cancer Social History Smoking Status: Never smoker Second Hand Exposure: No; Do You Dip or Chew Tobacco: No; Hx Alcohol Use: No Hx Substance Use: No Preferred Language: German Communication Ability: Effective Visual Impairment: No Limitations Hearing Ability: Normal Focusing Machine Operator Required: No Beliefs That Will Affect Care: None marital status: Current Living Situation: Spouse Current Living Situation Comment: lives w/ current occupational status: employed and retired 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, 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 How many Children do You have: 2 Other Information That Helps Us Care for You: No Feels Safe at Home: Yes Safety Concerns: Feels Safe At This Time Childhood Exposure to Second-Hand Smoke: Yes Diet: other Diet Comment: low dairy caffeine: Yes during the past year weight has: increased > 10 lbs Dental Care, Regularly: Yes Physical Activity Frequency: Daily Seatbelt Use: always Assistive Devices: Cane, Glasses and Wheelchair Assistive Devices Comment: uses wheelchair only w/ sciatica Allergies Allergies Allergy/AdvReac Type Severity Reaction Status Date / Time cefdinir Allergy Severe Hives Verified 01/17/25 19:48 rifampin AdvReac Severe cardiac Verified 01/17/25 19:48 arrhythmia + renal failure cephalexin [From Keflex] AdvReac Intermediate Nausea Verified 01/17/25 19:48 Home Meds Home Medications Medication Instructions Recorded Confirmed aspirin 81 mg tablet,delayed 81 mg PO QPM 03/11/22 01/17/25 release lactobacillus comb no.10 20 20,000 mmu cells PO DAILY 03/11/22 01/17/25 billion cell capsule (Probiotic) diclofenac sodium 1 % topical gel 2 g topical QID PRN Pain 07/06/23 01/17/25 ropinirole 1 mg tablet 2 mg PO HS restless leg(s) 10/17/24 01/17/25 naratriptan 2.5 mg tablet 2.5 mg PO DIRECTED PRN migraine 10/28/24 01/17/25 headache famotidine 20 mg tablet 20 mg PO BID 11/15/24 01/17/25 cyclosporine 0.05 % eye drops in a 1 drp ophthalmic (eye) Q12H PRN 01/03/25 01/17/25 dropperette (Restasis) Dry Eyes furosemide 40 mg tablet 40 mg PO BID 01/03/25 01/17/25 lubiprostone 24 mcg capsule 24 mcg PO BID 01/03/25 01/17/25 (Amitiza) magnesium oxide 400 mg PO BID 01/03/25 01/17/25 phenazopyridine 200 mg tablet 200 mg PO DAILY PRN Bladder Spasms 01/03/25 01/17/25 gabapentin 300 mg capsule 300 mg PO QAM 01/17/25 01/17/25 gabapentin 300 mg capsule 600 mg PO HS 01/17/25 01/17/25 pantoprazole 40 mg tablet,delayed 40 mg PO HS gerd 01/17/25 01/17/25 release Previous Rx's Medication Instructions Recorded calcium carbonate (Calcium 600) 600 mg PO BID #60 tabs 06/23/22 allopurinol 300 mg tablet 300 mg PO DAILY #90 tabs 02/23/24 hydroxychloroquine 200 mg tablet 200 mg PO BID #180 tabs 02/28/24 potassium chloride 10 mEq 10 meq PO QAM #90 tabs 05/22/24 tablet,extended release (Klor-Con) atogepant 60 mg tablet (Qulipta) 60 mg PO DAILY 90 days #90 tabs 05/24/24 ubrogepant 100 mg tablet (Ubrelvy) 100 mg PO .COMPLEX PRN migraine 08/23/24 headache 90 days #48 tabs metoprolol succinate 50 mg 50 mg PO BID #180 tabs 10/17/24 tablet,extended release 24 hr amoxicillin 500 mg tablet 2,000 mg (4 x 500 mg) PO ONCE #32 11/02/24 tabs levothyroxine 100 mcg tablet 100 mcg PO QDL #90 tabs 11/02/24 oxycodone 5 mg tablet 5 mg PO Q8H PRN pain (scale score 11/16/24 7-10) #10 tabs diltiazem HCl 240 mg 240 mg PO DAILY #90 caps 11/28/24 capsule,extended release 24 hr sennosides 8.6 mg-docusate sodium 2 tab-cap (2 x 8.6-50 mg) PO HS 11/28/24 50 mg tablet (Senna with Docusate #60 tabs Sodium) losartan 50 mg tablet 50 mg PO DAILY #90 tabs 12/20/24 duloxetine 60 mg capsule,delayed 60 mg PO DAILY #90 caps 12/28/24 release methenamine hippurate 1 gram tablet 1 g PO BID #180 tabs 01/05/25 potassium chloride 10 mEq 10 meq PO BID #60 caps 01/10/25 capsule,extended release Results & Data (ED) Vital Signs Vital Signs - 24 hr 01/17/25 16:22 01/17/25 17:11 01/17/25 18:24 Temperature 36.3 C L Temperature Source Temporal Artery Scan Pulse Rate 86 61 Pulse Rate [Finger] 66 Pulse Rate from SpO2 Sensor Respiratory Rate 18 16 Blood Pressure 103/54 L Blood Pressure [Right Arm] 116/55 L Blood Pressure Mean 70 Blood Pressure Mean [Right Arm] 75 Pulse Oximetry 99 99 Oxygen Delivery Method Room Air Room Air Sepsis Recent Fever Within 48 Hours No Sepsis New/Unexplained Change in Mental Status No Sepsis Action Taken by Nursing No Action Required 01/17/25 19:00 Temperature Temperature Source Pulse Rate 64 Pulse Rate [Finger] Pulse Rate from SpO2 Sensor 65 Respiratory Rate 13 Blood Pressure 116/56 L Blood Pressure [Right Arm] Blood Pressure Mean 76 Blood Pressure Mean [Right Arm] Pulse Oximetry 97 Oxygen Delivery Method Sepsis Recent Fever Within 48 Hours Sepsis New/Unexplained Change in Mental Status Sepsis Action Taken by Nursing Laboratory Data Attestation: I reviewed the patient's lab results. 01/17/25 17:00 01/17/25 17:00 Lab Results 01/17/25 01/17/25 Range/Units 17:00 18:15 WBC 9.63 (4.8-10.8) K/ul RBC 3.59 L (4.20-5.40) M/uL Hgb 11.2 L (12.0-16.0) g/dl Hct 32.9 L (37.0-47.0) % MCV 91.6 (80.0-100.0) fL MCH 31.2 (25.0-34.0) pg MCHC 34.0 (32.0-36.0) g/dL RDW Std Deviation 43.7 (36.4-46.3) fL RDW Coeff of Rowdy 13.2 (11.5-14.5) % Plt Count 225 (130-400) K/uL MPV 11.6 (9.4-12.4) fL Immature Gran % (Auto) 1.8 % Neut % (Auto) 72.9 % Lymph % (Auto) 15.6 % [place] % (Auto) 9.1 % Eos % (Auto) 0.0 % Baso % (Auto) 0.6 % Neut # (Auto) 7.02 H (1.40-6.50) K/uL Lymph # (Auto) 1.50 (1.20-3.40) K/uL [place] # (Auto) 0.88 H (0.11-0.59) K/uL Eos # (Auto) 0.00 (0.00-0.50) K/uL Baso # (Auto) 0.06 (0.00-0.20) K/uL Immature Gran # (Auto) 0.17 (0.01-0.20) K/uL PT 10.7 (9.0-12.0) Seconds INR 1.0 (0.9-1.1) Sodium 141 (136-145) mmol/L Potassium 3.4 L (3.5-5.1) mmol/L Chloride 100 (98-107) mmol/L Carbon Dioxide 31 (21-32) mmol/L Anion Gap 10 (3-11) BUN 72 H (6-23) mg/dl Creatinine 2.67 H (0.6-1.2) mg/dl Est Cr Clr Drug Dosing 21.8 ml/min eGFR 18.88 BUN/Creatinine Ratio 27.0 H (10-20) Glucose 90 (70-99(Fasting)) mg/dl Calcium 9.7 (8.6-10.3) mg/dl Phosphorus 4.1 (2.5-4.9) mg/dl Magnesium 2.5 H (1.7-2.4) mg/dl Total Bilirubin 0.4 (0.2-1.0) mg/dl AST 14 (13-39) U/L ALT 11 (7-52) U/L Alkaline Phosphatase 126 H (34-104) U/L Total Creatine Kinase 80 (26-192) U/L Troponin I High Sens 19.9 H (0-14) pg/ml Total Protein 6.6 (6.0-8.3) gm/dl Albumin 4.0 (3.4-5.0) gm/dl Globulin 2.6 (2.5-4.0) gm/dl Albumin/Globulin Ratio 1.5 (0.9-2) Lipase 29 (11-82) U/L TSH 8.182 H (0.300-4.500) uIu/ml Free T4 0.89 (0.61-1.60) ng/dl Urine Color Yellow Urine Appearance Clear (Clear) Urine pH 5.5 (4.5-7.5) Ur Specific [place] 1.011 (1.000-1.030) Urine Protein Negative (Negative) Urine Glucose (UA) Negative (Negative) Urine Ketones Negative (Negative) Urine Blood Negative (Negative) Urine Nitrite Negative (Negative) Urine Bilirubin Negative (Negative) Urine Urobilinogen Negative (Negative) Ur Leukocyte Esterase Trace H (Negative) Urine WBC (Auto) 0-5 (0-5) /hpf Urine RBC (Auto) 0-2 (0-2) /hpf U Hyaline Cast (Auto) 11-20 H (0-2) /lpf U Epithel Cells (Auto) 3-5 H (0-2) /hpf Urine Bacteria (Auto) None Seen (None Seen) Ur Random Creatinine 45.2 mg/dl Ur Random Sodium 67 mmol/L Urine Comment Administered Medications Gabapentin (Gabapentin 600 Mg Tab) 600 mg PO HS DODIE Stop: 02/17/25 00:59 Last Admin: 01/18/25 01:07 Dose: 600 mg Documented By: BJS Heparin Sodium (Porcine) (Heparin Sod 5,000 Unit/0.5 Ml Vial) 5,000 units SQ Q12 DODIE Stop: 02/16/25 23:29 Last Admin: 01/17/25 23:46 Dose: Not Given Documented By: MARY Lactated Ringer's (Lr) 1,000 mls @ 80 mls/hr IV .[id number] DODIE Stop: 01/18/25 08:14 Last Admin: 01/17/25 20:00 Dose: 80 mls/hr Documented By: LEOLA Miscellaneous (Atogepant [Qulipta] 60 Mg - Order Awaiting Action) 1 each N/A QS DODIE Stop: 02/17/25 00:00 Last Admin: 01/18/25 01:00 Dose: Not Given Documented By: MARY Discontinued Medications Famotidine (Famotidine 20 Mg Tab) 20 mg PO ONE ONE Stop: 01/18/25 00:23 Last Admin: 01/18/25 01:08 Dose: 20 mg Documented By: MARY Sodium Chloride (Nss) 500 mls @ 999 mls/hr IV .Q31M ONE Stop: 01/17/25 17:20 Last Infusion: 01/17/25 18:38 Dose: Infused Documented By: Admin: 01/17/25 17:41 Dose: 999 mls/hr Documented By: ELISABETH Acetaminophen (Ofirmev) 1,000 mg in 100 mls @ 400 mls/hr IV NOW STA Stop: 01/17/25 17:04 Last Infusion: 01/17/25 18:38 Dose: Infused Documented By: Admin: 01/17/25 17:40 Dose: 400 mls/hr Documented By: ELISABETH Pantoprazole Sodium (Pantoprazole 40 Mg Tab) 40 mg PO NOW ONE Stop: 01/18/25 00:24 Last Admin: 01/18/25 01:01 Dose: 40 mg Documented By: MARY Potassium Chloride (Potassium Chloride Crtab 20 Meq Tabcr) 20 meq PO NOW STA Stop: 01/17/25 19:49 Last Admin: 01/17/25 20:00 Dose: 20 meq Documented By: LEOLA Ropinirole HCl (Ropinirole Hcl 2 Mg Tablet) 2 mg PO NOW ONE Stop: 01/18/25 00:22 Last Admin: 01/18/25 01:00 Dose: 2 mg Documented By: MARY Imaging Data Radiologist's Impression: Chest X-Ray 01/17/25 16:48 Clinical History: Weakness Technique: A frontal view of the chest was obtained Comparison is made to the prior examination dated 01/06/2025 Findings: There are no confluent pulmonary infiltrates. The heart size is within normal limits. No pleural effusion or pneumothorax is seen. There is no definite pulmonary nodule. No fracture is noted. There is a left chest wall pacemaker device Impression: No active disease Electronically signed by Nolberto Stark 01-17-2025 6:04 PM Abdomen/Pelvis CT 01/17/25 16:49 Clinical History: Pain after fall Technique: Axial computed tomography images were obtained of the abdomen and pelvis without intravenous contrast. No prior CT is available for comparison Findings: The liver is overall of normal size, attenuation, and contour with no sign of cirrhosis or significant fatty infiltration. No definite liver mass lesion is seen on this noncontrast study. The gallbladder has been removed. There is mild bile duct dilatation that is likely due to the postcholecystectomy state. The spleen is of normal size. No focal splenic lesion is evident. The pancreas appears normal with no sign of acute or chronic pancreatitis and no mass lesion noted. The pancreatic duct is of normal caliber. The adrenal glands appear unremarkable. There is a 5 mm left renal calculus. No right renal or proximal ureteral calculi are seen. There is no hydronephrosis or perinephric stranding. No definite renal mass lesion is identified. The aorta is of normal caliber. No abdominal adenopathy is seen. The stomach appears normal. There is no sign of small bowel obstruction. There is diverticulosis without evidence of diverticulitis. There is no sign of appendicitis. No free intraperitoneal fluid or air is identified. No distal ureteral or bladder calculi are seen. The bladder is decompressed. The iliac arteries are of normal caliber. No pelvic adenopathy is noted. The uterus has been removed The lungs bases appear clear. Pacemaker leads are present There is an L4-5 fusion. Lumbar scoliosis and degenerative disc disease is seen. No fracture is identified. No focal osseous lesion is seen Impression: 1. No definite sign of abdominal organ injury after trauma 2. Nonobstructing left renal calculus 3. Diverticulosis without definite diverticulitis Electronically signed by Nolberto Stark 01-17-2025 7:[address] 01/17/25 16:49 Clinical history: Pain after fall Technique: Axial computed tomography images were obtained of the cervical spine without intravenous contrast. Sagittal and coronal reconstructions were obtained Comparison is made to the prior CT dated 04/19/2023 Findings: No fracture is identified. There is an unchanged well corticated break in the posterior arch of C1 that is likely due to normal variant activity. There is unchanged 2 mm of retrolisthesis at C3-4 and C6-7 and 2 mm of anterolisthesis at C4-5. No focal osseous lesion is evident. The atlantoaxial articulation appears unremarkable. There is suspected congenital fusion of C5 and C6 At C2-3, no disc herniation is identified. There is no spinal stenosis. The neural foramen are patent At C3-4, there is mild spinal stenosis due to a disc bulge. There is right greater than the left neural foramen narrowing that may affect the right C4 nerve root At C4-5, there is mild spinal stenosis due to a disc bulge. There is right greater than the left neural foramen narrowing that may affect the right C5 nerve root At C5-6, no disc herniation is identified. There is no spinal stenosis. The neural foramen are patent At C6-7, there is a disc bulge without spinal stenosis. The neural foramen are patent At C7-T1,no disc herniation is identified. There is no spinal stenosis. The neural foramen are patent The lung apices appear clear. The visualized soft tissues of the neck appear unremarkable. No foreign body is seen Impression: 1. No definite cervical spine fracture 2. Unchanged retrolisthesis at C3-4 and C6-7 3. Unchanged anterolisthesis at C4-5 4. 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 Mild spinal stenosis at C3-4 and C4-5 6. Right C3-4 and C4-5 neural foramen narrowing that may affect the exiting nerve roots Electronically signed by Nolberto Stark 01-17-2025 7:[address] 01/17/25 16:49 Clinical History: Pain after fall. Technique: Axial computed tomography images were obtained of the brain from the vertex to the skull base without intravenous contrast. Findings: There is no sign of intracranial hemorrhage. There is normal ryder-white matter differentiation with no sign of acute or old infarction. No midline shift or other form of herniation is identified. There is no hydrocephalus. No obvious mass lesion is seen on this noncontrast examination. The visualized portions of the orbits and paranasal sinuses appear unremarkable. The mastoid air cells appear clear Impression: Unremarkable noncontrast CT of the brain Electronically signed by Nolberto Stark 01-17-2025 6:41 PM Discharge Plan Visit Data Chief Complaint: Referred by Doctor Stated Complaint: POSS KIDNEY FAILURE, REF BY ED Provider: Herman Knapp Discharge Problem: Acute on chronic renal insufficiency, Fall from standing, Generalized weakness Patient Disposition: Admitted As Inpatient Condition: Fair Discharge Instructions Interventions: ED Discharge Assessment Last Done: 01/17/25 22:41 Discharge Problem: Fall from standing Qualifiers: Encounter type: initial encounter Qualified Code(s): W19.XXXA - Unspecified fall, initial encounter
[2025-01-17 17:23] LABS: Hematocrit (blood only) 32.9 % (37.0-47.0); Hemoglobin 11.2 g/dl (12.0-16.0); Immature Granulocytes # (auto) 0.17 K/uL (0.01-0.20); Immature Granulocytes % (auto) 1.8 %; Mean Corpuscular Hemoglobin 31.2 pg (25.0-34.0); Mean Corpuscular Volume 91.6 fL (80.0-100.0); Platelet Count 225 K/uL (130-400); RDW Standard Deviation 43.7 fL (36.4-46.3); Red Blood Count 3.59 M/uL (4.20-5.40); White Blood Count 9.63 K/ul (4.8-10.8)
[2025-01-17] MEDS: ACETAMINOPHEN 1,000 MG/100 ML VIAL IV STA (17:40)
[2025-01-17 17:41] LABS: Alanine Aminotransferase 11.0 U/L (7-52); Albumin Globulin Ratio 1.5 (0.9-2); Albumin Level 4.0 gm/dl (3.4-5.0); Alkaline Phosphatase 126.0 U/L (34-104); Anion Gap 10.0 (3-11); Bilirubin,Total 0.4 mg/dl (0.2-1.0); Blood Urea Nitrogen 72.0 mg/dl (6-23); Calcium 9.7 mg/dl (8.6-10.3); Carbon Dioxide 31.0 mmol/L (21-32); Chloride 100.0 mmol/L (98-107); Creatinine Clr Calc Pharmacy 21.8 ml/min; Globulin 2.6 gm/dl (2.5-4.0); Glucose 90.0 mg/dl (70-99(Fasting)); Lipase 29.0 U/L (11-82); Magnesium 2.5 mg/dl (1.7-2.4); Potassium 3.4 mmol/L (3.5-5.1); Sodium 141.0 mmol/L (136-145); Total Protein 6.6 gm/dl (6.0-8.3)
[2025-01-17] MEDS: SODIUM CHLORIDE 0.9% 500 ML IV ONE (17:41)
[2025-01-17 17:46] LABS: INR 1.0 (0.9-1.1); Prothrombin Time 10.7 Seconds (9.0-12.0)
[2025-01-17 17:55] LABS: Thyroid Stimulating Hormone 8.182 uIu/ml (0.300-4.500)
--- NOTE | 2025-01-17 18:10 | XRay Report ---
Clinical History: Weakness Technique: A frontal view of the chest was obtained Comparison is made to the prior examination dated 01/06/2025 Findings: There are no confluent pulmonary infiltrates. The heart size is within normal limits. No pleural effusion or pneumothorax is seen. There is no definite pulmonary nodule. No fracture is noted. There is a left chest wall pacemaker device Impression: No active disease Electronically signed by Nolberto Stark 01-17-2025 6:04 PM
[2025-01-17 18:30] LABS: T4 Free Thyroxine 0.89 ng/dl (0.61-1.60)
--- NOTE | 2025-01-17 18:42 | CT Scan Report ---
Clinical History: Pain after fall. Technique: Axial computed tomography images were obtained of the brain from the vertex to the skull base without intravenous contrast. Findings: There is no sign of intracranial hemorrhage. There is normal ryder-white matter differentiation with no sign of acute or old infarction. No midline shift or other form of herniation is identified. There is no hydrocephalus. No obvious mass lesion is seen on this noncontrast examination. The visualized portions of the orbits and paranasal sinuses appear unremarkable. The mastoid air cells appear clear Impression: Unremarkable noncontrast CT of the brain Electronically signed by Nolberto Stark 01-17-2025 6:41 PM
[2025-01-17 18:52] LABS: Appearance Urine Clear (Clear); Bacteria Urine Automated None Seen (None Seen); Glucose Urine UA Negative (Negative); RBC Urine Automated 0-2 /hpf (0-2); WBC Urine Automated 0-5 /hpf (0-5)
--- NOTE | 2025-01-17 19:41 | CT Scan Report ---
Clinical history: Pain after fall Technique: Axial computed tomography images were obtained of the cervical spine without intravenous contrast. Sagittal and coronal reconstructions were obtained Comparison is made to the prior CT dated 04/19/2023 Findings: No fracture is identified. There is an unchanged well corticated break in the posterior arch of C1 that is likely due to normal variant activity. There is unchanged 2 mm of retrolisthesis at C3-4 and C6-7 and 2 mm of anterolisthesis at C4-5. No focal osseous lesion is evident. The atlantoaxial articulation appears unremarkable. There is suspected congenital fusion of C5 and C6 At C2-3, no disc herniation is identified. There is no spinal stenosis. The neural foramen are patent At C3-4, there is mild spinal stenosis due to a disc bulge. There is right greater than the left neural foramen narrowing that may affect the right C4 nerve root At C4-5, there is mild spinal stenosis due to a disc bulge. There is right greater than the left neural foramen narrowing that may affect the right C5 nerve root At C5-6, no disc herniation is identified. There is no spinal stenosis. The neural foramen are patent At C6-7, there is a disc bulge without spinal stenosis. The neural foramen are patent At C7-T1,no disc herniation is identified. There is no spinal stenosis. The neural foramen are patent The lung apices appear clear. The visualized soft tissues of the neck appear unremarkable. No foreign body is seen Impression: 1. No definite cervical spine fracture 2. Unchanged retrolisthesis at C3-4 and C6-7 3. Unchanged anterolisthesis at C4-5 4. 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 Mild spinal stenosis at C3-4 and C4-5 6. Right C3-4 and C4-5 neural foramen narrowing that may affect the exiting nerve roots Electronically signed by Nolberto Stark 01-17-2025 7:40 PM
--- NOTE | 2025-01-17 19:49 | CT Scan Report ---
Clinical History: Pain after fall Technique: Axial computed tomography images were obtained of the abdomen and pelvis without intravenous contrast. No prior CT is available for comparison Findings: The liver is overall of normal size, attenuation, and contour with no sign of cirrhosis or significant fatty infiltration. No definite liver mass lesion is seen on this noncontrast study. The gallbladder has been removed. There is mild bile duct dilatation that is likely due to the postcholecystectomy state. The spleen is of normal size. No focal splenic lesion is evident. The pancreas appears normal with no sign of acute or chronic pancreatitis and no mass lesion noted. The pancreatic duct is of normal caliber. The adrenal glands appear unremarkable. There is a 5 mm left renal calculus. No right renal or proximal ureteral calculi are seen. There is no hydronephrosis or perinephric stranding. No definite renal mass lesion is identified. The aorta is of normal caliber. No abdominal adenopathy is seen. The stomach appears normal. There is no sign of small bowel obstruction. There is diverticulosis without evidence of diverticulitis. There is no sign of appendicitis. No free intraperitoneal fluid or air is identified. No distal ureteral or bladder calculi are seen. The bladder is decompressed. The iliac arteries are of normal caliber. No pelvic adenopathy is noted. The uterus has been removed The lungs bases appear clear. Pacemaker leads are present There is an L4-5 fusion. Lumbar scoliosis and degenerative disc disease is seen. No fracture is identified. No focal osseous lesion is seen Impression: 1. No definite sign of abdominal organ injury after trauma 2. Nonobstructing left renal calculus 3. Diverticulosis without definite diverticulitis Electronically signed by Nolberto Stark 01-17-2025 7:49 PM
--- NOTE | 2025-01-17 19:59 | History & Physical Report ---
Date of Service January 17, 2025 Assessment & Plan (1) ROSITA (acute kidney injury): (2) Localized swelling of both lower legs: Plan 69 y/o female with PMH of chronic venous insufficiency, HTN, paroxysmal SVT, hyperlipidemia, hypothyroidism, CKD stage , hx renal artery stenosis and celiac artery stenosis, gastroparesis here due to general weakness and ROSITA. Patient had been having worsening leg edema for 4 weeks now. Recently started on metolazone outpatient. Patient states that woke up this morning and had general weakness and muscle cramps. She was seen by PCP who recommended been evaluated in ED. Patent initial labs found with ROSITA. Patient will be admitted for IV fluids and further management #ROSITA | CKD stage 3 -Recently started on Lasix and metolazone recently by PCP due to leg edema and concerns of diastolic hear failure. Denied any SOB. Patient seem dry on exam - Baseline GFR 30, creatinine 1.47 mg/dL - Creatinine 1. 67, magnesium 2.5, potassium 3.4 - Potassium replaced on admission - Urine sodium and creatinine pending - Abdomen/ Pelvic wo contrast pending - Received 1 L NSS, will start LR 80 ml/ hr due to recent concern of CHF exacerbations - Losartan, Lasix and metolazone on admission on hold - gabapentin renally reduced - BMP, Magnesium in AM #Leg edema | chronic venous insufficiency - Patient with 3 weeks of leg edema. No symptoms of heart failure, no SOB, no orthopnea, no JVD on my exam today - continue compression stockings - Venous duplex ordered due to asymmetry edema - Continue leg elevations #diastolic heart failure - Echocardiogram 10/01: EF 55-60% - CXR: pulmonary edema, no effusions - Patient asymptomatic other than leg edema - Lasix held due to ROSITA - continue daily weight, I/Os # Gastroparesis: - Amitiza twice daily - Sennoside-docusate 2 tablets daily -continue PPI #abdominal atherosclerosis -including significant celiac artery disease and left renal artery - follows with vascular surgery outpatient DVT prophylaxis: Heparin sq BID Dispo: Med surge /telemetry History of Present Illness Primary Care Provider: Ishan Palma DO 69 y/o female with PMH of chronic venous insufficiency, HTN, paroxysmal SVT, hyperlipidemia, hypothyroidism, CKD stage , hx renal artery stenosis and celiac artery stenosis, gastroparesis here due to general weakness and ROSITA. Patient had been having worsening leg edema for 4 weeks now. Treated outpatient with Lasix and recently started on metolazone outpatient. Patient states that woke up this morning and had general weakness and muscle cramps. She had multiple bowel movements, no diarrhea. she did states fall this morning, hitting her head in the stairs. She was seen by PCP in the morning who recommended been evaluated in ED. she denied any SOB, chest pain, palpitations. No orthopnea. States eating and drinking ok. No runny nose, fevers or chills. Allergies Allergy/AdvReac Type Severity Reaction Status Date / Time cefdinir Allergy Severe Hives Verified 01/17/25 19:48 rifampin AdvReac Severe cardiac Verified 01/17/25 19:48 arrhythmia + renal failure cephalexin [From Keflex] AdvReac Intermediate Nausea Verified 01/17/25 19:48 Home Medications Medication Instructions Recorded Confirmed Type aspirin 81 mg tablet,delayed 81 mg PO QPM 03/11/22 01/17/25 History release lactobacillus comb no.10 20 20,000 mmu cells PO DAILY 03/11/22 01/17/25 History billion cell capsule (Probiotic) calcium carbonate (Calcium 600) 600 mg PO BID #60 tabs 06/23/22 01/17/25 Rx diclofenac sodium 1 % topical gel 2 g topical QID PRN Pain 07/06/23 01/17/25 History allopurinol 300 mg tablet 300 mg PO DAILY #90 tabs 02/23/24 01/17/25 Rx hydroxychloroquine 200 mg tablet 200 mg PO BID #180 tabs 02/28/24 01/17/25 Rx potassium chloride 10 mEq 10 meq PO QAM #90 tabs 05/22/24 01/17/25 Rx tablet,extended release (Klor-Con) atogepant 60 mg tablet (Qulipta) 60 mg PO DAILY 90 days #90 tabs 05/24/24 01/17/25 Rx ubrogepant 100 mg tablet (Ubrelvy) 100 mg PO .COMPLEX PRN migraine 08/23/24 01/17/25 Rx headache 90 days #48 tabs metoprolol succinate 50 mg 50 mg PO BID #180 tabs 10/17/24 01/17/25 Rx tablet,extended release 24 hr ropinirole 1 mg tablet 2 mg PO HS restless leg(s) 10/17/24 01/17/25 History naratriptan 2.5 mg tablet 2.5 mg PO DIRECTED PRN migraine 10/28/24 01/17/25 History headache amoxicillin 500 mg tablet 2,000 mg (4 x 500 mg) PO ONCE #32 11/02/24 01/17/25 Rx tabs levothyroxine 100 mcg tablet 100 mcg PO QDL #90 tabs 11/02/24 01/17/25 Rx famotidine 20 mg tablet 20 mg PO BID 11/15/24 01/17/25 History oxycodone 5 mg tablet 5 mg PO Q8H PRN pain (scale score 11/16/24 01/17/25 Rx 7-10) #10 tabs diltiazem HCl 240 mg 240 mg PO DAILY #90 caps 11/28/24 01/17/25 Rx capsule,extended release 24 hr sennosides 8.6 mg-docusate sodium 2 tab-cap (2 x 8.6-50 mg) PO HS 11/28/24 01/17/25 Rx 50 mg tablet (Senna with Docusate #60 tabs Sodium) losartan 50 mg tablet 50 mg PO DAILY #90 tabs 12/20/24 01/17/25 Rx duloxetine 60 mg capsule,delayed 60 mg PO DAILY #90 caps 12/28/24 01/17/25 Rx release cyclosporine 0.05 % eye drops in a 1 drp ophthalmic (eye) Q12H PRN 01/03/25 01/17/25 History dropperette (Restasis) Dry Eyes furosemide 40 mg tablet 40 mg PO BID 01/03/25 01/17/25 History lubiprostone 24 mcg capsule 24 mcg PO BID 01/03/25 01/17/25 History (Amitiza) magnesium oxide 400 mg PO BID 01/03/25 01/17/25 History phenazopyridine 200 mg tablet 200 mg PO DAILY PRN Bladder Spasms 01/03/25 01/17/25 History methenamine hippurate 1 gram tablet 1 g PO BID #180 tabs 01/05/25 01/17/25 Rx potassium chloride 10 mEq 10 meq PO BID #60 caps 01/10/25 01/17/25 Rx capsule,extended release gabapentin 300 mg capsule 300 mg PO QAM 01/17/25 01/17/25 History gabapentin 300 mg capsule 600 mg PO HS 01/17/25 01/17/25 History pantoprazole 40 mg tablet,delayed 40 mg PO HS gerd 01/17/25 01/17/25 History release Past Med/Surg History Problem List (Updated 01/18/25 @ 03:40 by Herman Knapp MD) Generalized weakness (Acute) Fall from standing (Acute) Acute on chronic renal insufficiency (Acute) ROSITA (acute kidney injury) Localized swelling of both lower legs (Acute) Superficial bruising of foot (Acute) Bilateral leg paresthesia (Acute) Diarrhea Rectal bleed Atherosclerosis of visceral artery of abdomen Right lumbar radiculopathy Hip osteoarthritis Hypertrophic osteoarthritis Dilation of biliary tract Abnormal computed tomography angiography (CTA) Urinary tract infection (Acute) Abdominal pain (Acute) Rectocele Gastroparesis Chest pain (Acute) Elevated alkaline phosphatase level CKD (chronic kidney disease) Chest pain syndrome History of vitamin D deficiency Fecal incontinence Migraine with aura Osteoarthritis of left shoulder Cervical radiculopathy at C7 Cervical spinal stenosis S/P arthroscopy of shoulder Operation Date: 08/12/23 13:35 Actual Procedures p Left Shoulder Arthroscopy, extensive debridement, subacromial Decompression, Distal Clavicle Excision, Chondroplasty of Left Humeral Head, Biceps Tenodesis(Left) - Favian Blevins MD Osteoarthritis Osteoarthritis of left acromioclavicular joint SLAP lesion of left shoulder Impingement of left shoulder Myofascial pain syndrome, cervical Neuralgia Gout Granuloma annulare Chronic rhinitis Complex sleep apnea syndrome Multiple pulmonary nodules Morbid obesity Taking Farxiga for weight loss (no diabetes/prediabetes hx) Upper airway cough syndrome Chronic cough Allergic rhinitis with postnasal drip Exertional shortness of breath Iron deficiency anemia Urinary incontinence Chest pain (Acute) JACOB (obstructive sleep apnea) Constipation (Acute) Rheumatoid arthritis Paroxysmal SVT (supraventricular tachycardia) (Acute) Leukocytosis (Acute) Chronic venous insufficiency Lumbar radiculopathy Non-restorative sleep PLMD (periodic limb movement disorder) Excessive daytime sleepiness Osteopenia Nephrolithiasis Inflammatory arthritis Hyperlipidemia Elevated antinuclear antibody (BRIGHT) level Spinal stenosis of lumbar region Fatigue Essential tremor Bilateral hands - mild/intermittent Memory deficits Idiopathic peripheral neuropathy Left renal artery stenosis 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 Hypothyroidism Spondylolisthesis at L4-L5 level Generalized pain Restless leg syndrome Seronegative arthritis Presence of cardiac pacemaker RBBB (right bundle branch block) HTN (hypertension) GERD (gastroesophageal reflux disease) CKD (chronic kidney disease), stage III Erosive osteoarthritis (Chronic) Medical History Occlusion of celiac artery History of nephrolithiasis Multiple lung nodules Migraine Left renal artery stenosis Iron deficiency anemia Hypothyroidism Hyperlipidemia HTN (hypertension) History of vitamin D deficiency Gout Exertional shortness of breath Essential tremor Bilateral hands - mild/intermittent Chronic kidney disease (CKD), stage III (moderate) Chronic cough Lumbar stenosis Cervical spinal stenosis Allergic rhinitis Urinary incontinence Superior mesenteric artery stenosis Seronegative arthritis History of right bundle branch block Hx of supraventricular tachycardia s/p pacemaker placement Osteoarthritis Osteopenia Chronic venous insufficiency Hx of leukocytosis Chest pain syndrome 05/2024 >>f/U w/ Dr silva was told "nothing to be concerned about" Trigeminal neuralgia Pre-diabetes Right shoulder tendinitis Muscle spasm Random episodes, possibly r/t RLS but no definitive etiology found per patient Pre-syncope Hx pre-syncopal/syncope episodes r/t autonomic disorder vs vasovagal; improved recently with verapamil/metoprolol dosing adjustments On home O2 2 lpm PRN exertion; "rare" use Hx of orthostatic hypotension Autonomic neuropathy Idiopathic peripheral neuropathy History of recent steroid use [facility] rheumatology visit 07/08/23, "Gout.. Discussed that patient was supposed to taper down on her prednisone. Reduce prednisone to 10 mg for 1 week, then reduce to 5 mg" > patient now back to her baseline of 5mg daily Hx of sepsis 08/2021 ([place]) r/t kidney infection Hx MRSA infection ~2016 in the finger, dx at [facility]. Osteomyelitis- "had surgery to remove" Polymyalgia rheumatica states most recent testing came back negative follows w/ Dr Gomez Chronic daily prednisone- currently at maintenance dose of 2 mg daily- being weaned off Vascular disease Renal artery stenosis, celiac/SMA stenosis- no intervention felt necessary per 02/05/21 vascular note Per patient- seen at [facility] [place] afterwards and felt report was read incorrect and patient has no significant stenosis Sleep apnea Non-compliant with CPAP GERD (gastroesophageal reflux disease) Restless legs syndrome Rheumatoid arthritis Questionable, serum negative Pacemaker Implanted 2018/recurrent syncope secondary to symptomatic bradycardia- last checked ~fall [address] Silva [place] History of COVID-19 07/2020- no current problems Spondylolysis Hypertension Surgical History Status post arthroscopy of left shoulder (08/12/23) Status post right knee replacement 01/16/22: LMA#5 + PNB. Status post right knee replacement 01/16/22: LMA#5 + PNB Status post placement of other cardiac pacemaker History of lumbar spinal fusion L4-5 fusion/decompression (03/13/22): Grade view 1, MAC#3, ETT 7.0 at [facility] S/P cardiac pacemaker procedure Implanted 2018 ([facility]) History of temporal artery biopsy Interdigital neuroma of foot Hx foot injections (done under anesthesia) History of hand surgery right finger left hand- I&D History of breast biopsy aspiration of cyst from left breast benign History of total abdominal hysterectomy and bilateral salpingo-oophorectomy History of dilatation and curettage History of bilateral tubal ligation History of colonoscopy History of esophagogastroduodenoscopy (EGD) History of cholecystectomy History of tooth extraction Family History Grandmother (Maternal) Family history of diabetes mellitus Father Myocardial infarction Lung cancer Hypertension Mother Acute myocardial infarction Hypertension Other No family history of adverse response to anesthesia Denies family history of Ovarian cancer Breast cancer Colorectal cancer Social History Smoking Status: Never smoker Second Hand Exposure: No; Do You Dip or Chew Tobacco: No; Hx Alcohol Use: No Hx Substance Use: No Preferred Language: Romanian Communication Ability: Effective Visual Impairment: No Limitations Hearing Ability: Normal Informatics Physician Required: No Beliefs That Will Affect Care: None marital status: Current Living Situation: Spouse Current Living Situation Comment: lives w/ current occupational status: employed and retired 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, 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 How many Children do You have: 2 Other Information That Helps Us Care for You: No Feels Safe at Home: Yes Safety Concerns: Feels Safe At This Time Childhood Exposure to Second-Hand Smoke: Yes Diet: other Diet Comment: low dairy caffeine: Yes during the past year weight has: increased > 10 lbs Dental Care, Regularly: Yes Physical Activity Frequency: Daily Seatbelt Use: always Assistive Devices: Cane, Glasses and Wheelchair Assistive Devices Comment: uses wheelchair only w/ sciatica Review of Systems Review of Systems: as per hpi Physical Exam Constitutional: well developed and well nourished; no acute distress and not ill appearing Respiratory: normal respiratory effort, lungs clear to auscultation Cardiovascular: Rate/Rhythm: regular rate and regular rhythm Heart Sounds: normal S1 and normal S2 Extremities: + edema (bilateral edema, right leg> left) Gastrointestinal (Abdomen): normal bowel sounds, soft, nontender, no hepatosplenomegaly Skin: no rashes, warm and dry Results & Data Results & Data Vital Signs (Past 12 Hours) Vital Signs Temp Pulse Pulse Resp BP BP Pulse Ox 01/17/25 19:00 64 13 116/56 L 97 01/17/25 18:24 66 16 116/55 L 99 01/17/25 17:11 61 01/17/25 16:22 36.3 C L 86 18 103/54 L 99 O2 Del Method 01/17/25 19:00 01/17/25 18:24 Room Air 01/17/25 17:11 01/17/25 16:22 Room Air Code Status & VTE Plan VTE Prophylaxis Plan VTE Prophylaxis will be ordered: Yes Supervising Physician Co-Signing Physician Notes Attending addendum: I have physically seen this patient, have supervised the medical residents activities, and agree with the H&P unless as otherwise noted. Assessment and Plan: The patient is a 69-year-old female with past medical history including chronic venous insufficiency, hypertension, paroxysmal SVT, hyperlipidemia, hypothyroidism, CKD stage III, renal artery stenosis, celiac artery stenosis, and gastroparesis. She presents to the emergency department due to symptoms of generalized weakness, worsening lower extremity edema for the past 4 weeks. She was recently started on metolazone as outpatient, and woke up this morning f eeling generally weak and with muscle cramps. She was seen by her PCP, who recommended she be evaluated in the ED. Laboratories in the ED were consistent with ROSITA superimposed on CKD. Patient is being admitted for further evaluation and treatment. Acute kidney injury superimposed on CKD stage III- Hold furosemide and metolazone Creatinine 2.67 on admission, with base 1.39 Potassium 3.4, will give single dose of 20 mill equivalents of oral potassium Creatinine kinase ordered and pending assess for possible associated rhabdomyolysis CT head was negative CT cervical spine showed chronic central canal and foraminal stenosis CT abdomen and pelvis showed a nonobstructing left renal calculus, diverticulosis without definite acute diverticulitis, and no sign of abdominal organ injury after trauma. Chest x-ray showed no acute findings Venous Doppler bilateral lower extremity was negative for DVT Status post 1 L normal saline bolus in the ED LR at 125 mL/h x 1 L Hold losartan Repeat laboratories every morning Chronic lower extremity edema/chronic venous insufficiency- Venous Doppler negative for DVT Leg elevation significant Compression stockings if noted Diastolic heart failure/hypertension- Echocardiogram on 10/01 with ejection fraction 55-60% Chest x-ray negative for edema or effusions Holding Lasix due to ROSITA Hold antihypertensive diltiazem and metoprolol due to borderline blood pressure, and resume as blood pressure improves Gastroparesis/GERD- Continue famotidine and pantoprazole Continue Amitiza Senokot docusate as noted Gout- Continue allopurinol PLMD- Continue ropinirole Resident Activity Tracking Resident Involvement: Resident Care Provided Care Provided: Adult Hospital Medicine
[2025-01-17] MEDS: LACTATED RINGER'S 1,000 ML IV SCH (20:00)
[2025-01-17] MEDS: POTASSIUM CHLORIDE CRTAB 20 MEQ TABCR PO STA (20:00)
[2025-01-17 20:49] LABS: Creatine Kinase 80.0 U/L (26-192)
[2025-01-17] MEDS ORDERED: ONDANSETRON INJ 2 MG/ML 2 ML VIAL IV PRN (23:30)
[2025-01-17] MEDS ORDERED: MELATONIN 3 MG TAB PO PRN (23:30)
[2025-01-17] MEDS ORDERED: ACETAMINOPHEN 325 MG TAB PO PRN (23:30)
[2025-01-17] MEDS ORDERED: PHENAZOPYRIDINE HCL 200 MG TAB PO PRN (23:30)
[2025-01-17] MEDS: HEPARIN SOD 5,000 UNIT/0.5 ML VIAL SQ SCH (23:46)
--- NOTE | 2025-01-18 | Ultrasound Report ---
Exam(s): US VENOUS BILATERAL LOWER EXTREMITIES EXAM: US Duplex Bilateral Lower Extremities Veins CLINICAL HISTORY: Reason for exam: Leg edema. TECHNIQUE: Real-time duplex ultrasound scan of the bilateral lower extremity veins integrating B-mode two-dimensional vascular structure, Doppler spectral analysis, color flow Doppler imaging and compression. COMPARISON: No relevant prior studies available. FINDINGS: Right deep veins: No DVT in the right common femoral, femoral, proximal deep femoral or popliteal veins. The veins demonstrate normal color flow, are normally compressible, with normal phasic flow and/or augmentation response. Right superficial veins: No thrombus in the visualized right great saphenous vein. Left deep veins: No DVT in the left common femoral, femoral, proximal deep femoral or popliteal veins. The veins demonstrate normal color flow, are normally compressible, with normal phasic flow and/or augmentation response. Left superficial veins: No thrombus in the visualized left great saphenous vein. Soft tissues: No acute findings. IMPRESSION: No evidence of acute DVT. Electronically signed by: Jarvis De La Fuente M.D. 01/17/25 23:59 PM
[2025-01-18] MEDS ORDERED: ARTIFICIAL TEARS OP PRN (00:04)
[2025-01-18 00:43] VITALS: RESP 18
[2025-01-18] MEDS: GABAPENTIN 600 MG TAB PO SCH (01:07)
[2025-01-18] MEDS: FAMOTIDINE 20 MG TAB PO ONE (01:08)
[2025-01-18] MEDS: LEVOTHYROXINE SODIUM 100 MCG TABLET PO SCH (06:15)
[2025-01-18 06:24] LABS: Hematocrit (blood only) 30.0 % (37.0-47.0); Hemoglobin 10.2 g/dl (12.0-16.0); Immature Granulocytes # (auto) 0.16 K/uL (0.01-0.20); Immature Granulocytes % (auto) 1.9 %; Mean Corpuscular Hemoglobin 30.7 pg (25.0-34.0); Mean Corpuscular Volume 90.4 fL (80.0-100.0); Platelet Count 182 K/uL (130-400); RDW Standard Deviation 43.5 fL (36.4-46.3); Red Blood Count 3.32 M/uL (4.20-5.40); White Blood Count 8.50 K/ul (4.8-10.8)
--- NOTE | 2025-01-18 06:27 | Billing Data ---
Date of Service January 18, 2025 Coding Level of Care Code 84637 INT INP/OBS CARE
[2025-01-18 06:56] LABS: Alanine Aminotransferase 8.0 U/L (7-52); Albumin Globulin Ratio 1.6 (0.9-2); Albumin Level 3.4 gm/dl (3.4-5.0); Alkaline Phosphatase 108.0 U/L (34-104); Anion Gap 9.0 (3-11); Bilirubin,Total 0.4 mg/dl (0.2-1.0); Blood Urea Nitrogen 72.0 mg/dl (6-23); Calcium 9.2 mg/dl (8.6-10.3); Carbon Dioxide 29.0 mmol/L (21-32); Chloride 104.0 mmol/L (98-107); Creatine Kinase 95.0 U/L (26-192); Creatinine Clr Calc Pharmacy 25.8 ml/min; Globulin 2.1 gm/dl (2.5-4.0); Glucose 101.0 mg/dl (70-99(Fasting)); Magnesium 2.3 mg/dl (1.7-2.4); Potassium 3.5 mmol/L (3.5-5.1); Sodium 142.0 mmol/L (136-145); Total Protein 5.5 gm/dl (6.0-8.3)
[2025-01-18 06:58] LABS: INR 1.0 (0.9-1.1); Prothrombin Time 10.9 Seconds (9.0-12.0)
[2025-01-18] MEDS: FAMOTIDINE 20 MG TAB PO SCH (08:42)
[2025-01-18] MEDS: GABAPENTIN 300 MG CAP PO SCH (08:43)
[2025-01-18] MEDS: HYDROXYCHLOROQUINE SULFATE 200 MG TAB PO SCH (08:43)
[2025-01-18] MEDS: LUBIPROSTONE 8 MCG CAP PO SCH (08:45)
[2025-01-18] MEDS ORDERED: METOPROLOL SUCC 50MG EXT REL TAB PO SCH (09:00)
[2025-01-18] MEDS ORDERED: GABAPENTIN 100 MG CAP PO SCH (09:00)
[2025-01-18] MEDS ORDERED: MAGNESIUM OXIDE 400 MG TAB PO SCH (09:00)
[2025-01-18] MEDS: SODIUM CHLORIDE 0.9% 1,000 ML IV SCH (09:40)
[2025-01-18] MEDS ORDERED: UBROGEPANT 100 MG TAB PO PRN (10:39)
[2025-01-18] MEDS: ATOGEPANT 60 MG PO SCH (10:48)
[2025-01-18] MEDS: MAGNESIUM SULFATE / D5W 1 GM/100 ML BAG IV ONE (12:36)
--- NOTE | 2025-01-18 12:47 | Hospitalist Progress Note ---
"Date of Service January 18, 2025 Assessment & Plan (1) ROSITA (acute kidney injury): (2) Localized swelling of both lower legs: Plan 69 y/o female with PMH of chronic venous insufficiency, HTN, paroxysmal SVT, hyperlipidemia, hypothyroidism, CKD stage , hx renal artery stenosis and celiac artery stenosis, gastroparesis here due to general weakness and ROSITA. Patient had been having worsening leg edema for 4 weeks, Recently started on metolazone outpatient. Patient states that woke up this morning and had general weakness and muscle cramps. She was seen by PCP who recommended been evaluated in ED. Patent initial labs found with ROSITA. Patient will be admitted for IV fluids and further management #ROSITA | CKD stage 3 -Recently started on Lasix and metolazone recently by PCP due to leg edema and concerns of diastolic hear failure. Denied any SOB. Patient seem dry on exam. CT A/P without signs of obstruction, no injury from recent fall. UA without signs of infection Baseline GFR 30, creatinine 1.47 mg/dL - Creatinine 2.6 on admissionimproving to 2.27 Continue IV fluids, encourage p.o. fluids Losartan, Lasix and metolazone held Gabapentin renally reduced orthostatic vital signs with drop in diastolic pressurerecheck in a.m. suspect contributing fallto AM BMP #Leg edema | chronic venous insufficiency - Patient with 3 weeks of leg edema. No symptoms of heart failure, no SOB, no orthopnea, no JVD on my exam today. also reports a decreased physical activity with back injury. Doppler negative for DVT. continue compression stockings Continue leg elevations #diastolic heart failure - Echocardiogram 10/01: EF 55-60% , CXR: pulmonary edema, no effusions. Patient asymptomatic other than leg edema - Lasix held due to ROSITA - continue daily weight, I/Os # Gastroparesis: - Amitiza twice daily - Sennoside-docusate 2 tablets daily -continue PPI #abdominal atherosclerosis -including significant celiac artery disease and left renal artery - follows with vascular surgery outpatient DVT prophylaxis: Heparin sq BID Dispo: Continue inpatient stay, hopeful for discharge tomorrow Admission and Anticipated Discharge Date Admission Date: January 17, 2025 Supervising Physician Co-Signing Physician Notes The patient was not seen by me. The chart was reviewed. Case discussed with ARJUN Ordaz. Agree with assessment and plan Subjective Patient seen sitting at the side of the bed. Reports feeling better today. Talked about the tremors in her upper extremity and tremors that she had last night. States she normally takes Requip for restless legs. Does feel like her leg swelling gets worse throughout the day. Also feels like her activity level has been decreased and she has been having back problems and is scheduled to see her she for this soon. Telemetry paced in the 60s Review of Systems Review of Systems: All systems reviewed & are unremarkable except as noted in Subjective Physical Exam Physical Exam: General: NAD, VS as above Resp: normal respiratory effort, lungs clear to auscultation CV: RRR, no murmur, Abd: normal bowel sounds, non tender, no hepatosplenomegaly Extremities: Moves all extremities, bilateral lower extremity edema right greater than left. With areas of varicose veins next back: Significant muscle tenderness with palpation on the new left posterior shoulder/scapular area Neuro: A&O x3, Results & Data Results & Data Vital Signs (Past 12 Hours) Vital Signs Temp Pulse Pulse Resp BP BP Pulse Ox 01/18/25 11:06 97.3 F L 68 18 132/70 99 01/18/25 08:49 01/18/25 07:47 97.7 F 64 18 97/58 L 96 01/18/25 07:10 61 01/18/25 02:15 97.7 F 65 18 91/56 L 95 O2 Del Method 01/18/25 11:06 Room Air 01/18/25 08:49 Room Air 01/18/25 07:47 Room Air 01/18/25 07:10 01/18/25 02:15 Room Air Laboratory Results C8 CBC and chemistry reviewed PG Care Time/CCT Total # of Minutes Spent Total Time Spent with Patient: Total time spent is greater than 50% in coordination of care (as documented) at patient's floor/unit and/or counseling patient: Coding Level of Care Code 79301 SUB INP/OBS CARE 3/50MIN Diagnoses ROSITA (acute kidney injury) N17.9 Localized swelling of both lower legs R22.43"
[2025-01-18] MEDS: DOCUSATE SODIUM/SENNA 50/8.6MG TAB PO SCH (20:41)
[2025-01-18] MEDS ORDERED: GABAPENTIN 300 MG CAP PO SCH (21:00)
[2025-01-18] MEDS: DICLOFENAC SOD 1% GEL 100 GM TUBE EXT PRN (23:14)
[2025-01-19 07:42] VITALS: BP 113/64; TEMP 98.1; O2SAT 96
[2025-01-19 08:16] LABS: Anion Gap 8.0 (3-11); Blood Urea Nitrogen 57.0 mg/dl (6-23); Calcium 9.5 mg/dl (8.6-10.3); Carbon Dioxide 27.0 mmol/L (21-32); Chloride 107.0 mmol/L (98-107); Creatinine Clr Calc Pharmacy 31.1 ml/min; Glucose 104.0 mg/dl (70-99(Fasting)); Potassium 3.5 mmol/L (3.5-5.1); Sodium 142.0 mmol/L (136-145)
--- NOTE | 2025-01-19 09:43 | Discharge Summary ---
"Discharge Summary Date of Service January 19, 2025 Principal Dx & Hospital Course #1 = Principal Diagnosis (1) ROSITA (acute kidney injury): (2) Localized swelling of both lower legs: Plan #ROSITA | CKD stage 3 69 y/o female with PMH of chronic venous insufficiency, HTN, paroxysmal SVT, hyperlipidemia, hypothyroidism, CKD stage , hx renal artery stenosis and celiac artery stenosis, gastroparesis here due to general weakness and ROSITA. Patient had been having worsening leg edema for 4 weeks, Recently started on metolazone outpatient. Patient states that woke up this morning and had general weakness and muscle cramps. She was seen by PCP who recommended been evaluated in ED. Patent initial labs found with ROSITA. Recently started on Lasix and metolazone recently by PCP due to leg edema and concerns of diastolic hear failure. Denied any SOB. Patient seem dry on exam. CT A/P without signs of obstruction, no injury from recent fall. UA without signs of infection. Suspect leg swelling related to chronic venous insufficiency. Creatinine 2.6 on admissionimproving to 1.90 day of discharge. Orthostatic hypotension resolved with IV fluids. Encourage to continue PO hydration at home. Can resume losartan at reduced dose on Monday 01/22, hold lasix until PCP follow up. Stop metolazone. #Leg edema | chronic venous insufficiency - Patient with 3 weeks of leg edema. No symptoms of heart failure, no SOB, no orthopnea, no JVD on my exam today. also reports a decreased physical activity with back injury. Doppler negative for DVT. continue compression stockings and leg elevations. Follow up with [facility] for possible intervention on her back pain. #diastolic heart failure - Echocardiogram 10/01: EF 55-60% , CXR: pulmonary edema, no effusions. Patient asymptomatic other than leg edema - Lasix held due to ROSITA # Gastroparesis: - Amitiza twice daily - Sennoside-docusate 2 tablets daily -continue PPI #abdominal atherosclerosis -including significant celiac artery disease and left renal artery - follows with vascular surgery outpatient Dispo: discharge to home today, PCP follow up next week Notes For Next Care Provider Medication Changes From Visit stop metolazone decrease losartan held lasix Admission HPI Per Admitting Provider 69 y/o female with PMH of chronic venous insufficiency, HTN, paroxysmal SVT, hyperlipidemia, hypothyroidism, CKD stage , hx renal artery stenosis and celiac artery stenosis, gastroparesis here due to general weakness and ROSITA. Patient had been having worsening leg edema for 4 weeks now. Treated outpatient with Lasix and recently started on metolazone outpatient. Patient states that woke up this morning and had general weakness and muscle cramps. She had multiple bowel movements, no diarrhea. she did states fall this morning, hitting her head in the stairs. She was seen by PCP in the morning who recommended been evaluated in ED. she denied any SOB, chest pain, palpitations. No orthopnea. States eating an d drinking ok. No runny nose, fevers or chills. Discharge Exam General: NAD, VS as above Resp: normal respiratory effort CV:well perfused Extremities: Moves all extremities, bilateral lower extremity edema right greater than left. With areas of varicose veins next back: Significant muscle tenderness with palpation on the new left posterior shoulder/scapular area Neuro: A&O x3, Discharge Plan Discharge Items Patient Disposition: Home - Self-Care Reason For Visit: ROSITA Discharge Diagnosis: Acute kidney injury Condition on Discharge: Fair Activity: Resume your previous activity Non-emergency contact: Primary Care Provider Call non-emergency contact if: you have any medication questions, your symptoms worsen, your pain is not controlled and your temperature is above 101.5 Follow-up/Referrals: Ishan Palma, [Primary Care Provider] - (follow up within one week ) Diet: Heart Healthy and Low Sodium (2gm) Addtl Attending Provider Instructions: Ms. Daugherty, You were hospitalized after having weakness, dehydration and a fall at home. This was likely from too many diuretics outpatient. While hospitalized you received IV fluids with improvement in your symptoms and kidney function. We have adjusted your medications to hopefully prevent this in the future. I suspect alot of your leg swelling is from lymphedema and not heart failure. Please continue to wear compression stockings or alina wraps. Walking is encouraged, but I know with your back pain this is limited. Elevate your legs when ever possible. Medication changes: - Stop Metolazone - Lasix held until follow up with your PCP, you do not need to take the potassium when you are not taking lasix - resume losartan at reduced dose, 25mg on Monday 01/22 No other changes to your home medications. Activity: You can do normal everyday activities as your body allows. Take rest breaks if you feel tired. Do not overexert. Stop activity if you have pain, shortness of breath or feel dizzy. Follow-up appointments: Make an appointment with your primary care physician within one week of discharge. A copy of this summary will be sent to them. Every time you see your primary care physician, or any other doctor, bring your medication list, and a list of questions. CONTACT YOUR PRIMARY CARE PROVIDER if you experience any of the following: Shortness of breath or difficulty breathing Fevers or chills Feeling tired with normal activity or experiencing dizziness or fainting Difficulty following your treatment plan, or difficulty taking medications CALL 911 OR GO TO THE EMERGENCY DEPARTMENT if you experience any of the following: Severe abdominal pain or nausea/vomiting Severe chest pain, or chest pain that radiates (moves) to your jaw or arm Sudden, severe shortness of breath or difficulty breathing Thank you for allowing us to participate in your care. Pending Studies at Discharge: No Stand-Alone Forms: [employer], Smoking Cessation Medications and DC Order Prescriptions: Continued diclofenac sodium 1 % gel 2 g topical QID PRN (Reason: Pain) Rx Instructions: apply to single elbow, wrist or hand; for hand includes palm/fingers/back of hand. hydroxychloroquine 200 mg tablet 200 mg PO BID Qty: 180 0RF Qulipta 60 mg tablet 60 mg PO DAILY 90 Days Qty: 90 2RF metoprolol succinate 50 mg tablet extended release 24 hr 50 mg PO BID Qty: 180 3RF levothyroxine 100 mcg tablet 100 mcg PO QDL Qty: 90 3RF Rx Instructions: Pt states she has been taking 1 whole tab amoxicillin 500 mg tablet 2,000 mg PO ONCE Qty: 32 3RF Rx Instructions: 4 tabs 1 hour prior to procedure sennosides-docusate sodium [Senna with Docusate Sodium] 8.6-50 mg tablet 2 tab-cap PO HS Qty: 60 4RF diltiazem HCl 240 mg capsule,extended release 24hr 240 mg PO DAILY Qty: 90 3RF duloxetine 60 mg capsule,delayed release(DR/EC) 60 mg PO DAILY Qty: 90 1RF methenamine hippurate 1 gram tablet 1 g PO BID Qty: 180 1RF calcium carbonate [Calcium 600] 600 mg calcium (1,500 mg) tablet 600 mg PO BID Qty: 60 0RF allopurinol 300 mg tablet 300 mg PO DAILY MDD qam Qty: 90 3RF Ubrelvy 100 mg tablet 100 mg PO .COMPLEX MDD 200 mg PRN (Reason: migraine headache) 90 Days Qty: 48 3RF Rx Instructions: 100 mg orally take prn migraine, may repeat after two hours prn phenazopyridine 200 mg tablet 200 mg PO DAILY PRN (Reason: Bladder Spasms) cyclosporine [Restasis] 0.05 % dropperette 1 drp ophthalmic (eye) Q12H PRN (Reason: Dry Eyes) lubiprostone [Amitiza] 24 mcg capsule 24 mcg PO BID magnesium oxide 400 mg magnesium tablet 400 mg PO BID aspirin 81 mg tablet,delayed release (DR/EC) 81 mg PO QPM Probiotic 20 billion cell Capsule 20,000 mmu cells PO DAILY ropinirole 1 mg tablet 2 mg PO HS naratriptan 2.5 mg tablet 2.5 mg PO DIRECTED PRN (Reason: migraine headache) gabapentin 300 mg capsule 600 mg PO HS pantoprazole 40 mg tablet,delayed release (DR/EC) 40 mg PO HS gabapentin 300 mg capsule 300 mg PO QAM famotidine 20 mg tablet 20 mg PO BID Rx Instructions: Pt states she is still taking this. oxycodone 5 mg tablet 5 mg PO Q8H PRN (Reason: pain (scale score 7-10)) Qty: 10 0RF Changed losartan 25 mg tablet 25 mg PO DAILY Qty: 30 0RF Held potassium chloride [Klor-Con 10] 10 mEq tablet extended release 10 meq PO QAM Qty: 90 3RF Hold Instructions: Provider's Order - until resuming lasix furosemide 40 mg tablet 40 mg PO BID Hold Instructions: Provider's Order - until you see your PCP Rx Instructions: STOP AT MD OFFICE DURING VISIT TODAY 01/17/2025 potassium chloride 10 mEq capsule, extended release 10 meq PO BID Qty: 60 2RF Hold Instructions: Provider's Order Rx Instructions: NEWLY PRESCRIBED; HAS NOT STARTED Discharge Orders: Discharge Order (Routine); Ordered 01/19/25 Ordered By: Zuleyma Gandhi Admission Data Admit Date/Time: 01/17/25 19:50 Attending Provider: Manish Crouch Admit Provider: Blanca Munoz Primary Care Provider: Ishan Palma Other Providers: Meliton Moore Other Interventions: Discharge Summary Assessment (RN) Last Done: 01/19/25 10:55 Hospital Stay Data Consultations 01/17/25 18:37 ED Decision to Admit Stat Diagnostic Imagining Performed Chest X-Ray 01/17/25 16:48 Clinical History: Weakness Technique: A frontal view of the chest was obtained Comparison is made to the prior examination dated 01/06/2025 Findings: There are no confluent pulmonary infiltrates. The heart size is within normal limits. No pleural effusion or pneumothorax is seen. There is no definite pulmonary nodule. No fracture is noted. There is a left chest wall pacemaker device Impression: No active disease Electronically signed by Nolberto Stark 01-17-2025 6:04 PM Abdomen/Pelvis CT 01/17/25 16:49 Clinical History: Pain after fall Technique: Axial computed tomography images were obtained of the abdomen and pelvis without intravenous contrast. No prior CT is available for comparison Findings: The liver is overall of normal size, attenuation, and contour with no sign of cirrhosis or significant fatty infiltration. No definite liver mass lesion is seen on this noncontrast study. The gallbladder has been removed. There is mild bile duct dilatation that is likely due to the postcholecystectomy state. The spleen is of normal size. No focal splenic lesion is evident. The pancreas appears normal with no sign of acute or chronic pancreatitis and no mass lesion noted. The pancreatic duct is of normal caliber. The adrenal glands appear unremarkable. There is a 5 mm left renal calculus. No right renal or proximal ureteral calculi are seen. There is no hydronephrosis or perinephric stranding. No definite renal mass lesion is identified. The aorta is of normal caliber. No abdominal adenopathy is seen. The stomach appears normal. There is no sign of small bowel obstruction. There is diverticulosis without evidence of diverticulitis. There is no sign of appendicitis. No free intraperitoneal fluid or air is identified. No distal ureteral or bladder calculi are seen. The bladder is decompressed. The iliac arteries are of normal caliber. No pelvic adenopathy is noted. The uterus has been removed The lungs bases appear clear. Pacemaker leads are present There is an L4-5 fusion. Lumbar scoliosis and degenerative disc disease is seen. No fracture is identified. No focal osseous lesion is seen Impression: 1. No definite sign of abdominal organ injury after trauma 2. Nonobstructing left renal calculus 3. Diverticulosis without definite diverticulitis Electronically signed by Nolberto Stark 01-17-2025 7:[address] 01/17/25 16:49 Clinical history: Pain after fall Technique: Axial computed tomography images were obtained of the cervical spine without intravenous contrast. Sagittal and coronal reconstructions were obtained Comparison is made to the prior CT dated 04/19/2023 Findings: No fracture is identified. There is an unchanged well corticated break in the posterior arch of C1 that is likely due to normal variant activity. There is unchanged 2 mm of retrolisthesis at C3-4 and C6-7 and 2 mm of anterolisthesis at C4-5. No focal osseous lesion is evident. The atlantoaxial articulation appears unremarkable. There is suspected congenital fusion of C5 and C6 At C2-3, no disc herniation is identified. There is no spinal stenosis. The neural foramen are patent At C3-4, there is mild spinal stenosis due to a disc bulge. There is right greater than the left neural foramen narrowing that may affect the right C4 nerve root At C4-5, there is mild spinal stenosis due to a disc bulge. There is right greater than the left neural foramen narrowing that may affect the right C5 nerve root At C5-6, no disc herniation is identified. There is no spinal stenosis. The neural foramen are patent At C6-7, there is a disc bulge without spinal stenosis. The neural foramen are patent At C7-T1,no disc herniation is identified. There is no spinal stenosis. The neural foramen are patent The lung apices appear clear. The visualized soft tissues of the neck appear unremarkable. No foreign body is seen Impression: 1. No definite cervical spine fracture 2. Unchanged retrolisthesis at C3-4 and C6-7 3. Unchanged anterolisthesis at C4-5 4. 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 Mild spinal stenosis at C3-4 and C4-5 6. Right C3-4 and C4-5 neural foramen narrowing that may affect the exiting nerve roots Electronically signed by Nolberto Stark 01-17-2025 7:[address] 01/17/25 16:49 Clinical History: Pain after fall. Technique: Axial computed tomography images were obtained of the brain from the vertex to the skull base without intravenous contrast. Findings: There is no sign of intracranial hemorrhage. There is normal ryder-white matter differentiation with no sign of acute or old infarction. No midline shift or other form of herniation is identified. There is no hydrocephalus. No obvious mass lesion is seen on this noncontrast examination. The visualized portions of the orbits and paranasal sinuses appear unremarkable. The mastoid air cells appear clear Impression: Unremarkable noncontrast CT of the brain Electronically signed by Nolberto Stark 01-17-2025 6:41 PM Venous Doppler Study 01/17/25 20:17 Exam(s): US VENOUS BILATERAL LOWER EXTREMITIES EXAM: US Duplex Bilateral Lower Extremities Veins CLINICAL HISTORY: Reason for exam: Leg edema. TECHNIQUE: Real-time duplex ultrasound scan of the bilateral lower extremity veins integrating B-mode two-dimensional vascular structure, Doppler spectral analysis, color flow Doppler imaging and compression. COMPARISON: No relevant prior studies available. FINDINGS: Right deep veins: No DVT in the right common femoral, femoral, proximal deep femoral or popliteal veins. The veins demonstrate normal color flow, are normally compressible, with normal phasic flow and/or augmentation response. Right superficial veins: No thrombus in the visualized right great saphenous vein. Left deep veins: No DVT in the left common femoral, femoral, proximal deep femoral or popliteal veins. The veins demonstrate normal color flow, are normally compressible, with normal phasic flow and/or augmentation response. Left superficial veins: No thrombus in the visualized left great saphenous vein. Soft tissues: No acute findings. IMPRESSION: No evidence of acute DVT. Electronically signed by: Jarvis De La Fuente M.D. 01/17/25 23:59 PM Pending Results Patient Have Any Pending Studies at Discharge: No Discharge Instructions Given to Patient (Per Discharging Provider) Ms. Daugherty, You were hospitalized after having weakness, dehydration and a fall at home. This was likely from too many diuretics outpatient. While hospitalized you received IV fluids with improvement in your symptoms and kidney function. We hav e adjusted your medications to hopefully prevent this in the future. I suspect alot of your leg swelling is from lymphedema and not heart failure. Please continue to wear compression stockings or alina wraps. Walking is encouraged, but I know with your back pain this is limited. Elevate your legs when ever possible. Medication changes: - Stop Metolazone - Lasix held until follow up with your PCP, you do not need to take the potassium when you are not taking lasix - resume losartan at reduced dose, 25mg on Monday 01/22 No other changes to your home medications. Activity: You can do normal everyday activities as your body allows. Take rest breaks if you feel tired. Do not overexert. Stop activity if you have pain, shortness of breath or feel dizzy. Follow-up appointments: Make an appointment with your primary care physician within one week of discharge. A copy of this summary will be sent to them. Every time you see your primary care physician, or any other doctor, bring your medication list, and a list of questions. CONTACT YOUR PRIMARY CARE PROVIDER if you experience any of the following: Shortness of breath or difficulty breathing Fevers or chills Feeling tired with normal activity or experiencing dizziness or fainting Difficulty following your treatment plan, or difficulty taking medications CALL 911 OR GO TO THE EMERGENCY DEPARTMENT if you experience any of the following: Severe abdominal pain or nausea/vomiting Severe chest pain, or chest pain that radiates (moves) to your jaw or arm Sudden, severe shortness of breath or difficulty breathing Thank you for allowing us to participate in your care. Total Time Total Time Spent Total Time Spent (In Minutes): Time spent day of discharge 36 minutes including direct patient care, medication reconciliation, documentation, review of labs and images, and coordination of care. Coding Level of Care Code 99630 INP/OBS DISCH >30 MIN Diagnoses ROSITA (acute kidney injury) N17.9 Localized swelling of both lower legs R22.43"
[2025-01-19 10:56] VITALS: PULSE 65
--- NOTE | 2025-01-20 05:59 | Electrocardiogram Report ---
Test Reason : Blood Pressure : */* mmHG Vent. Rate : 62 BPM Atrial Rate : 62 BPM P-R Int : 288 ms QRS Dur : 142 ms QT Int : 478 ms P-R-T Axes : * -11 -11 degrees QTcB Int : 485 ms Atrial-paced rhythm with prolonged AV conduction Non-specific intra-ventricular conduction block Cannot rule out Septal infarct (cited on or before 11-Mar-2023) Inferior infarct , age undetermined T wave abnormality, consider anterolateral ischemia Abnormal ECG When compared with ECG of 28-Oct-2024 21:09, Inferior infarct is now Present Confirmed by Jose Brandt ([id number]) on 01/20/2025 5:59:39 AM Referred By: REFERRED SELF Confirmed By: Jose Brandt
== END 2025-01-19 11:38 | disposition home or self-care (01) | DRG 683 ==
LOC: 2N 16:03 → ED 16:03 → SUATTDRO 19:50 → 2N 22:41